=== PATIENT | male | born 1940 | race Caucasian/White ===

== ENCOUNTER → 2016-05-17 | Outpatient (CLI) | payer MEDICARE, MEDICAID ==
[~2016-05-17] MED LIST: ASP325T PO; ASP81CT PO; ASPI-983 PO; CARV3.122 PO; CARV6.252 PO; CHOL2000 PO; COLE1TAB PO; DIGO125T91 PO; DOCU-161 PO; ENAL2.5T PO; FRSM40T PO; GLIM4TAB PO; METF500T4 PO; METH10TA5 PO; METH5TAB5 PO; OMEG1CAP51 PO; OMEP40CA36 PO; PNT40TEC PO; PRAV40TA2 PO; PRV20T PO
--- OUTSIDE RECORDS SUMMARY | 2016-05-17 12:34 | XMS REPORT | Continuity of Care Document ---
Author Author [facility] Organization [facility] Address Unknown Phone Unavailable Care Team Providers Care Assistant Community Director Name Role Phone Dameon Hernandez III PCP [phone] Source Comments Some departments are not documenting in the electronic medical record. If you do not see the information that you expected, contact Release of Information in the Health Information Management department at [phone] for further assistance in locating additional records.[facility] Active Allergies and Adverse Reactions No Known Allergies Current Medications Prescription Sig. Disp. Refills Start End Date Status Date [place]-3 Fatty Take 1 Cap by mouth Active Acids-Vitamin E 1,[address] cap omepraz[address] DR(+) Take 40 mg by mouth Active (PRILOSEC) 40 mg capsule daily. Cholecalciferol (Vitamin Take 1 Cap by mouth Active D3) 2,000 unit cap daily. enalapril (VASOTEC) 2.5 Take 2.5 mg by mouth Active mg tablet daily. methimazole (TAPAZOLE) 5 Take 5 mg by mouth daily. Active mg tablet ticagrelor (BRILINTA) 90 Take 1 Tab by mouth twice 60 Tab 11 05/07/19 Active mg daily. 16 atorvastatin (LIPITOR) 80 Take 1 Tab by mouth 90 Tab 3 05/07/19 Active mg tablet daily. 16 nitroglycerin (NITROSTAT) Place 1 Tab under tongue 25 Tab 3 11/02/19 Active 0.4 mg tablet every 5 minutes as needed 16 for Chest Pain. spironolactone Take 0.5 Tabs by mouth 90 Tab 3 11/02/19 Active (ALDACTONE) 25 mg tablet daily. Take with food. 16 aspirin EC 81 mg tablet Take 1 Tab by mouth 90 Tab 3 11/02/19 Active daily. Take with food. 16 digoxin (LANOXIN) 125 mcg Take 125 mcg by mouth Active tablet daily. carvedilol (COREG) 25 mg Take 1 Tab by mouth twice 180 Tab 3 02/21/20 Active tablet daily. 16 metFORMIN (GLUCOPHAGE) Take 1 Tab by mouth twice 180 Tab 3 03/22/19 Active 500 mg tablet daily with meals. DO NOT 17 RESUME UNTIL 03/22/16 Hydrocodone-Acetaminophen Take 1 Tab by mouth every 20 Each 0 Active (VICODIN) 5-300 mg tablet 4 hours as needed for 17 Pain Earliest Fill Date: 03/21/16 mexiletine (MEXITIL) 150 Take 1 Cap by mouth twice 60 Cap 6 03/21/19 Active mg capsule daily. Indications: 17 VENTRICULAR ARRHYTHMIAS Active Problems Problem Noted Date Hyperthyroidism 11/02/2015 Overview: Treated with Methimazole. NSVT (nonsustained ventricular tachycardia) ([facility]) 11/02/2015 CAD (coronary artery disease) 11/01/2015 Type II diabetes mellitus ([facility]) 05/06/2015 Ischemic cardiomyopathy 05/06/2015 CAD (coronary artery disease), robinson coronary artery Overview: 04/13/15 - cardiac cath: EF 30% with inferior hypokinesis, 100% mRCA, 40-50% mLAD 04/14/15 - 24hour viability study: decreased uptake in the inferior wall with retained viability 05/06/15: QASIM x 4 to RCA - continued ASA lifelong & Brilinta 90 mg BID >/=1 year w/o interruption to prevent stent thrombosis and possible myocardial infarction. 11/01/15: Drug-eluting stent PCI to PLV by Dr. Amaral History of atrial fibrillation Chronic systolic heart failure ([facility]) Overview: 10/01/14 - Echo with Doppler: EF 50%, mildly dilated left atrium, mild MR/TR, estimated PAP 35 mm Hg COPD (chronic obstructive pulmonary disease) ([facility]) Hyperlipidemia Pulmonary hypertension ([facility]) Carotid artery stenosis Overview: 05/25/2011 - left CEA with patch angioplasty Essential hypertension Most Recent Encounters Date Type Specialty Providers Description 05/01/2016 Telephone Cardiology Arin Devine RN Other - EP F/U question 04/03/2016 Hospital Cardiology Boom Amaral MD Encounter 04/03/2016 Ancillary Cardiology Boom Amaral MD At risk for sudden Orders cardiac (Primary Dx) 03/29/2016 Telephone Cardiology Kaylie aSenz RN Provider Discussion About Patient - incision check at PCP Dr. Hernandez 03/23/2016 Telephone Cardiology Mercedes Ling, RAIMUNDO Follow Up 03/21/2016 Hospital Cardiology Sanjay Raphael MD Encounter 03/21/2016 Hospital Cardiology Sanjay Raphael MD Encounter 03/21/2016 Orders Only Cardiology Jessa Scott RN Chronic systolic heart failure (HCC) (Primary Dx) 03/20/2016 Hospital Cardiology Sanjay Raphael MD Ischemic cardiomyopathy - Encounter 03/21/2016 03/20/2016 Anesthesia Cardiology Saurav Agosto CRNA Event 03/20/2016 Documentation Cardiology Hao Padgett Research - WRAP-IT 03/20/2016 Surgery Cardiology Sanjay Raphael MD Insert ICD and Leads : Dual Chamber 03/15/2016 Pre-Admit Cardiology Diana Wallis, DIRECTOR OF CASEWORK-C Orders Only 03/13/2016 Orders Only Cardiology Cathy Phipps RN Ischemic cardiomyopathy 03/13/2016 Telephone Cardiology Mercedes Ling RN 03/07/2016 Hospital Cardiology Boom Amaral MD Encounter 03/07/2016 Ancillary Cardiology Boom Amaral MD At risk for sudden Orders cardiac (Primary Dx) 02/27/2016 Documentation Cardiology Layo Dubon RN Precertification - Medicare 02/22/2016 Pre-Procedure Cardiology Kaylie Saenz RN EP Pre- Procedure Instructions Instructions - ICD implant 03/20 with MPE 02/22/2016 Telephone Cardiology Kaylie Saenz RN Follow-up Phone Call - arrange ICD implant 02/21/2016 Hospital Cardiology Boom Amaral MD Encounter 02/21/2016 Office Visit Cardiology Sanjay Raphael MD Cardiac Eval - 3 month Boom Amaral MD f/u Social History Tobacco Use Types Packs/Day Years Used Date Current Every Day Smoker Cigars Alcohol Use Drinks/Week oz/Week Comments No Last Filed Vital Signs Vital Sign Reading Time Taken Blood Pressure 133/56 03/21/2016 9:53 AM HOSPITALITY SERVICES MANAGER Pulse 60 03/21/2016 9:53 AM HOSPITALITY SERVICES MANAGER Temperature 36.8 C (98.3 F) 03/21/2016 9:53 AM HOSPITALITY SERVICES MANAGER Respiratory Rate - - Height 1.676 m (5' 6") 03/20/2016 8:57 AM HOSPITALITY SERVICES MANAGER Weight 83.19 kg (183 lb 6.4 oz) 03/20/2016 8:57 AM HOSPITALITY SERVICES MANAGER Body Mass Index 29.62 03/20/2016 8:57 AM HOSPITALITY SERVICES MANAGER Oxygen Saturation 96% 03/21/2016 9:53 AM HOSPITALITY SERVICES MANAGER Plan of Care Date Type Specialty Providers Description 06/20/2016 Appointment Cardiology 07/10/2016 Appointment Cardiology 07/10/2016 Appointment Cardiology Boom Amaral MD [address] [place] [address] [phone] (Fax) Health Maintenance Due Date Last Done Comments Physical (Comprehensive) 1947 Exam Pertussis Vaccine 1953 Tetanus Vaccine 1959 Dilated Eye Exam 02/06/1960 Foot Exam 02/06/1960 Hba1c 02/06/1960 Microalbumin 02/06/1960 Colorectal Cancer 02/06/1992 Screening Shingles Vaccine 2002 Prevnar/Pneumovax (#1) 2007 Influenza Vaccine 11/17/2015 Procedures from Last 3 Months Procedure Name Priority Date/Time Associated Diagnosis Comments ECG-SCAN 04/04/2016 Results for this 10:45 AM HOSPITALITY SERVICES MANAGER procedure are in the results section. TELEMETRY STRIPS-SCAN 03/24/2016 Results for this 4:43 PM HOSPITALITY SERVICES MANAGER procedure are in the results section. TELEMETRY STRIPS-SCAN 03/24/2016 Results for this 4:43 PM HOSPITALITY SERVICES MANAGER procedure are in the results section. ECG UNCONFIRMED-SCAN 03/24/2016 Results for this 11:02 AM HOSPITALITY SERVICES MANAGER procedure are in the results section. ECG UNCONFIRMED-SCAN 03/24/2016 Results for this 11:02 AM HOSPITALITY SERVICES MANAGER procedure are in the results section. Results from Last 3 Months ECG-SCAN (04/04/2016 10:45 AM) Narrative Ordered by an unspecified provider. WEARABLE DEFIBRILLATOR INTERROGATION (04/03/2016 8:17 AM)Only the most recent of 2 results within the time period is included. Narrative [04/03/2016 8:18:06 AM - ROBER CHEEMA] LifeVest end of use download completed, no treatment events noted. LV discontinued d/t ICD implant. Pt has had an average daily wear time of 17.94 hrs/day and has had 109 wear time alerts since last report. Forwarded to Dr. Amaral for co-signature. See scanned HRM Data Sheet for wear time report details. TELEMETRY STRIPS-SCAN (03/24/2016 4:43 PM) Narrative Ordered by an unspecified provider. TELEMETRY STRIPS-SCAN (03/24/2016 4:43 PM) Narrative Ordered by an unspecified provider. ECG UNCONFIRMED-SCAN (03/24/2016 11:02 AM) Narrative Ordered by an unspecified provider. ECG UNCONFIRMED-SCAN (03/24/2016 11:02 AM) Narrative Ordered by an unspecified provider. DEVICE EVALUATION - REMOTE ICD (03/21/2016 2:27 PM) Component Value Range Generator Model # EVERA MRI XT DR CHENG [id number] Generator Serial # [id number] Generator Implnat Date 03/20/2016 Generator Food Service Coordinator Medtronic Generator Investigational No Device Type DDD-ICD RV Lead Model # SPRINT QUATTRO SECURE S MRI SURESCAN 6935M-62CM RV Lead Serial # [id number] RV Lead Implant Date 03/20/2016 RV Lead Diaph. 10 Stimulation RV Lead Fixation active fixation RV Lead Location RV apex RV Lead Coil Single RV Lead Food Service Coordinator Medtronic Atrial Lead Model # CAPSUREFIX NOVUS MRI SURESCAN 5076-52CM Atrial Lead Serial # [id number] Atrial Lead Implant Date 03/20/2016 Atrial Lead Diaph. 10 Stimulation Atrial Lead Food Service Coordinator Medtronic Atrial Lead Fixation active fixation Atrial Lead Location right atrial appendage Atrial Lead Pin Connector IS1 Atrial Lead Polarity Bipolar Device Mode AAIR/DDDR Lower Rate Limit 60 Upper Rate Limit 130 Sensor Rate Limit 130 Pace AV Delay 180 Sense AV Delay 150 VT Monitor 150 VT Detect Rate Tx ATP TO SHOCK FVT Detect Rate (bpm) 200 FVT Detect Rate Tx ATP TO SHOCK VF Detect Rate (bpm) 250 VF Detect Rate Tx ATP TO SHOCK Mode Switch (bpm) 150 High A Rate Detect 150 High V Rate Detect 150 Mode Switch Status On VT Detect Rate (bpm) 171 Date of Last Remote Check 03/20/16 Next Remote Check Due 06/18/16 Remote Monitoring? Yes Remote Check? Yes Narrative Initial transmission 03/20/16 top 06/18/16 Initial check post implant. WNL. Presenting strip APVS @ 60 bpm with some ASVS beats. Data initializing. See attached for more information. Pt from [place], [place]. Orders in for next OV with DR Amaral. Routed to [facility] for review. EP DEVICE (03/21/2016 10:05 AM) Component Value Range Generator Model # EVERA MRI XT SKYLAR [id number] Generator Serial # [id number] Generator Implnat Date 03/20/2016 Generator Food Service Coordinator Med[employer]onic Generator Investigational No Generator Location Left Device Type DDD-ICD RV Lead Model # SPRINT QUATTRO SECURE S MRI SKYLAR 6935M-62CM RV Lead Serial # [id number] RV Lead Implant Date 03/20/2016 RV Sense mv 11.4 RV Capture V 0.4 RV Capture ms 0.5 RV Lead Current 0.5 mA RV Lead ohms 630 RV Voltage 3.5 RV Pulse Width 0.4 RV Lead Diaph. 10 Stimulation RV Lead Fixation active fixation RV Lead Location RV apex RV Lead Pin Connector PPM DF4 RV Lead Coil Single RV Lead Food Service Coordinator Medtronic Atrial Lead Model # CAPSUREFIX NOVUS WILMER CHENG 5076-52CM Atrial Lead Serial # [id number] Atrial Lead Implant Date 03/20/2016 A Sense mv 1.0 A Capture V 0.6 A Capture ms 0.5 Atrial Lead Current 1.4 mA A Lead ohms 531 Ao Voltage 3.5 AO Pulse Width 0.4 Atrial Lead Diaph. 10 Stimulation Atrial Lead Food Service Coordinator Med[employer]onic Atrial Lead Fixation active fixation Atrial Lead Location right atrial appendage Atrial Lead Pin Connector IS1 Atrial Lead Polarity Bipolar Device Mode AAIR/DDDR Lower Rate Limit 60 Upper Rate Limit 130 Sensor Rate Limit 130 Pace AV Delay 180 Sense AV Delay 150 VT Monitor 150 VT Detect Rate Tx ATP TO SHOCK FVT Detect Rate (bpm) 200 FVT Detect Rate Tx ATP TO SHOCK VF Detect Rate (bpm) 250 VF Detect Rate Tx ATP TO SHOCK Mode Switch (bpm) 150 High A Rate Detect 150 High V Rate Detect 150 Mode Switch Status On Rate Response On VT Detect Rate (bpm) 171 Narrative Audioprosthologist: Sanjay Raphael MD Fellow: Nichole Cornelius MD Procedure(s): Left sided Dual chamber pacemaker; Cardiac Fluoroscopy; moderate sedation Indications: Ischemic Cardiomyopathy (Primary Prevention). Technique: The patient was in a stable fasting state. He was prepped and draped in the usual strict sterile fashion. After the antibiotic was completely infused, 20 cc Sensorcaine was infiltrated into the area just medial to the left deltopectoral groove. Using a #10 scalpel, an incision was made. The incision was extended to the prepectoral fascia using blunt dissection. Then left axillary vein was accessed twice under fluroscopy. Two sheaths were placed over the guidewire. Then the ventricular lead was advanced into the RV. It was fixated to the right ventricular apical septum. Appropriate sensing and thresholds were obtained.We had to reposition for appropriate placement. During one of the placement, VF/VT was induced, for which he needed external cardioversion with 300 J. It was successful.His RV was highly irritable overall. No complications were noted. No diaphragmatic pacing occurred at 10 V and 1.5 ms. Then the atrial lead was passed down into the RA. The RA lead was fixated to the right atrial appendage. Appropriate sensing and thresholds were obtained. No diaphragmatic pacing occurred at 10 V and 1.5 ms. The sheaths were peeled away.The leads were then sutured to the pectoralis muscle using Ethibond.Lead measurements were then rechecked. A left prepectoral pocket was fashioned. The leads were attached to the generator. The system was placed in the pocket and connected to the leads. The generator and leads system were visualized under fluoroscopy. The generator was sutured to the pocket. Appropriate redundancy/slack in the leads were noted. The pins of the leads were beyond the set screws. Hemostasis was reverified. The pocket was then closed with in three layers. Steri-Strips, a sterile dressing, and an operative site were placed. The patient was transferred to the pre-post room in stable condition. ICD REGISTRY Guideline directed medical therapy for last 3 months or more? If no, document reason:yes History of Cardiac arrest no Coronary angiogram performed post cardiac arrest Not applicable NYHA Functional Class III Family history of Non-Ischemic Cardiomyopathy no Family history of SCD no History of Ventricular Tachycardia yes Type of VT NSVT VT occurred post cardiac surgery w/in 48 hours Not applicable Bradycardia dependent Not applicable Reversible cause Not applicable Hemodynamically unstable during VT Not applicable Indication for PacingNone If yes to the question above, anticipate need for >40% RV pacing? Not applicable Atrial lead for SVT discrimination yes History of SVT no DEVICE EVALUATION - ICD (03/21/2016 9:54 AM) Component Value Range Generator Model # EVERA MRI XT DR CHENG [id number] Generator Serial # [id number] Generator Implnat Date 03/20/2016 Generator Food Service Coordinator Medtronic Generator Investigational No Device Type DDD-ICD Device [place] [employer] Express Transmitter Compatible RV Lead Model # SPRINT QUATTRO SECURE S MRI SURESCAN 6935M-62CM RV Lead Serial # [id number] RV Lead Implant Date 03/20/2016 RV Lead Diaph. 10 Stimulation RV Lead Fixation active fixation RV Lead Location RV apex RV Lead Coil Single RV Lead Food Service Coordinator Med[employer]onic Atrial Lead Model # CAPSUREFIX AJ MRI SURESCAN 5076-52CM Atrial Lead Serial # [id number] Atrial Lead Implant Date 03/20/2016 Atrial Lead Diaph. 10 Stimulation Atrial Lead Food Service Coordinator Medtronic Atrial Lead Fixation active fixation Atrial Lead Location right atrial appendage Atrial Lead Pin Connector IS1 Atrial Lead Polarity Bipolar Device Mode AAIR/DDDR Lower Rate Limit 60 Upper Rate Limit 130 Sensor Rate Limit 130 Pace AV Delay 180 Sense AV Delay 150 VT Monitor 150 VT Detect Rate Tx ATP TO SHOCK FVT Detect Rate (bpm) 200 FVT Detect Rate Tx ATP TO SHOCK VF Detect Rate (bpm) 250 VF Detect Rate Tx ATP TO SHOCK Mode Switch (bpm) 150 High A Rate Detect 150 High V Rate Detect 150 Mode Switch Status On VT Detect Rate (bpm) 171 Device Implanted By MPE EP Device Followed by RENETTA Name Pacemaker Dependant No EP Device Followed By [facility] Narrative Next Day Check [03/21/2016 9:55:25 AM - JESSA SCOTT] Device check by Medtronic Rep in hospital. Please click blue HRM Data Sheet Hyperlink for Report. Remote orders in; routed to E for sign off. POC GLUCOSE (03/21/2016 7:09 AM)Only the most recent of 4 results within the time period is included. Component Value Range Glucose, POC 149 (H) 70-100 MG/DL CHEST 2 VIEWS (03/21/2016 5:32 AM) Impressions Placement of left cardiac conduction device without acute disease in the chest. Finalized by Leny Davila M.D. on 03/21/2016 9:51 AM. Dictated by Leny Davila M.D. on 03/21/2016 9:50 AM. Narrative Two-view chest Clinical indication: Status post device implantation. Comparison: None. Findings: Heart size and pulmonary vasculature are within normal limits. No pleural effusion, focal consolidative process, or pneumothorax is seen. Procedure Note Interface, Radiant Results - SatMar 21, 2016 9:54 AM HOSPITALITY SERVICES MANAGER Two-view chest Clinical indication: Status post device implantation. Comparison: None. Findings: Heart size and pulmonary vasculature are within normal limits. No pleural effusion, focal consolidative process, or pneumothorax is seen. IMPRESSION Placement of left cardiac conduction device without acute disease in the chest. Finalized by Leny Davila M.D. on 03/21/2016 9:51 AM. Dictated by Leny Davila M.D. on 03/21/2016 9:50 AM. BASIC METABOLIC PANEL (03/21/2016 3:26 AM)Only the most recent of 2 results within the time period is included. Component Value Range Sodium 138 137-147 MMOL/L Potassium 3.9 3.5-5.1 MMOL/L Chloride 107 98-110 MMOL/L CO2 24 21-30 MMOL/L Anion Gap 7 3-12 Glucose 115 (H) 70-100 MG/DL Blood Urea Nitrogen 14 7-25 MG/DL Creatinine 0.83 0.4-1.24 MG/DL Calcium 8.2 (L) 8.5-10.6 MG/DL eGFR Non >60Comment: >60 mL/min The eGFR is not validated for use in drug dosing adjustments. Continue to use estimated creatinine clearance per dosing reference text. Please contact the Clinical Pharmacist for questions. eGFR >60Comment: >60 mL/min The eGFR is not validated for use in drug dosing adjustments. Continue to use estimated creatinine clearance per dosing reference text. Please contact the Clinical Pharmacist for questions. Specimen Blood CBC (03/21/2016 3:26 AM)Only the most recent of 3 results within the time period is included. Component Value Range White Blood Cells 10.6 4.5-11.0 K/UL RBC 4.17 (L) 4.4-5.5 M/UL Hemoglobin 12.1 (L) 13.5-16.5 GM/DL Hematocrit 37.3 (L) 40-50 % MCV 89.5 80-100 FL MCH 29.0 26-34 PG MCHC 32.4 32.0-36.0 G/DL RDW 15.7 (H) 11-15 % Platelet Count 177 150-400 K/UL MPV 9.7 7-11 FL Specimen Blood MAGNESIUM (03/13/2016)Only the most recent of 2 results within the time period is included. Component Value Range Magnesium 2.3 Specimen Blood COMPREHENSIVE METABOLIC PANEL (02/21/2016 11:15 AM) Component Value Range Sodium 134 (L) 137-147 MMOL/L Potassium 4.1 3.5-5.1 MMOL/L Chloride 100 98-110 MMOL/L Glucose 268 (H) 70-100 MG/DL Blood Urea Nitrogen 16 7-25 MG/DL Creatinine 1.01 0.4-1.24 MG/DL Calcium 9.7 8.5-10.6 MG/DL Total Protein 7.1 6.0-8.0 G/DL Total Bilirubin 0.4 0.3-1.2 MG/DL Albumin 4.1 3.5-5.0 G/DL Alk Phosphatase 54 25-110 U/L AST (SGOT) 15 7-40 U/L CO2 26 21-30 MMOL/L ALT (SGPT) 25 7-56 U/L Anion Gap 8 3-12 eGFR Non >60Comment: >60 mL/min The eGFR is not validated for use in drug dosing adjustments. Continue to use estimated creatinine clearance per dosing reference text. Please contact the Clinical Pharmacist for questions. eGFR >60Comment: >60 mL/min The eGFR is not validated for use in drug dosing adjustments. Continue to use estimated creatinine clearance per dosing reference text. Please contact the Clinical Pharmacist for questions. TSH WITH FREE T4 REFLEX (02/21/2016 11:15 AM) Component Value Range TSH 1.005 0.35-5.00 MCU/ML Specimen Blood
--- NOTE | 2016-05-18 06:51 | ECHOCARDIOGRAPHY REPORT ---
PROCEDURE PHYSICIAN: TAYLOR BROWN DATE OF PROCEDURE: 05/17/2016 TWO DIMENSIONAL ECHOCARDIOGRAM REPORT PRIMARY PHYSICIAN: OTHER PHYSICIAN: REFERRING PHYSICIAN: Dr. Celio Hernandez ORDERING PHYSICIAN: INDICATION FOR THE PROCEDURE: 1. Congestive heart failure. 2. Coronary artery disease. MEASUREMENTS DERIVED VALUES LV DIAMETER (LAX) NORMALS NORMALS Diastolic 5.8 (3.6-5.2) Eject. Fract. 40% (60%+/-6%) Systolic (2.3-3.9) Diastolic Vol. % Shortening (0.22-0.42) Systolic Vol. Aortic Root IVS THICKNESS Diastolic 1.1 (0.6-1.1) LVPW THICKNESS Diastolic 1.1 (0.6-1.1) LA DIAMETER Systolic 4.6 (2.1-3.7) FINDINGS: 1. Technical quality is good. 2. The left ventricle is prominent with diffuse left ventricular hypokinesia. Systolic function is reduced. Estimated ejection fraction 40%. 3. The left atrium is dilated. No clot or thrombus were seen within the left atrium. 4. The right atrium and right ventricle are prominent. No clot or thrombus were seen. 5. Mitral valve is normal in morphology with mild to moderate mitral regurgitation noted by color Doppler flow. No mitral valve prolapse. No mitral valve stenosis. 6. Aortic valve is trileaflet with normal opening and closing pattern. No significant aortic valve stenosis or regurgitation was seen. 7. Tricuspid valve is normal in morphology with mild tricuspid regurgitation noted by color Doppler flow. Doppler across tricuspid valve estimated pulmonary artery pressure of 21+ right atrial pressure. 8. Pulmonic valve is functioning normally. 9. No pericardial effusion. CONCLUSION: 1. Prominent left ventricle with diffuse left ventricular hypokinesia. Systolic function is reduced. Estimated ejection fraction 40%. 2. Left atrial dilatation. 3. Mild to moderate mitral regurgitation. Mild tricuspid regurgitation. 4. Estimated pulmonary artery pressure of 30 mmHg. Job ID: [id number] Dictated Date: 05/17/2016 16:50:55 Customer Loyalty Representative Date: 05/18/2016 06:48:02 / saji
== END ==
LOC: CARD 12:30
PROVIDERS: ATTEND Internal Medicine Cardiovascular Disease
DX: I25.10 Atherosclerotic heart disease of native coronary artery without angina pectoris (principal); I50.22 Chronic systolic (congestive) heart failure; J44.9 Chronic obstructive pulmonary disease, unspecified; I65.23 Occlusion and stenosis of bilateral carotid arteries; C43.9 Malignant melanoma of skin, unspecified; I48.0 Paroxysmal atrial fibrillation
CPT/HCPCS: 93306

== ENCOUNTER → 2017-05-22 | Outpatient (CLI) | payer MEDICARE, MEDICAID ==
--- NOTE | 2017-05-22 12:59 | Diagnostic Imaging Report ---
INDICATION: Injury to the right ankle. TIME OF EXAM: 1:03 p.m. FINDINGS: Three views of the right ankle were obtained. The alignment is normal. There is an obliquely oriented fracture through the distal fibula. No significant displacement or angulation is seen. The ankle mortise is maintained. The talar dome is smooth. Distal tibia appears intact. IMPRESSION: Obliquely oriented distal fibular fracture. Dictated by: Dictated on workstation # [id number]
== END ==
LOC: RAD 12:18
PROVIDERS: ATTEND Internal Medicine
DX: S82.431A Displaced oblique fracture of shaft of right fibula, initial encounter for closed fracture (principal); S93.431A Sprain of tibiofibular ligament of right ankle, initial encounter
CPT/HCPCS: 73610

== ENCOUNTER → 2017-06-17 | Outpatient (CLI) | payer MEDICARE, MEDICAID ==
[~2017-06-17] MED LIST changes: +RT-ALBUTEROL SULF 2.5 MG/3 ML PRE-MIX VIAL INH ONE
== END ==
LOC: RT 08:36
PROVIDERS: ATTEND Internal Medicine
DX: R06.00 Dyspnea, unspecified (principal)
CPT/HCPCS: 94060; 94726; 94729

== ENCOUNTER 2018-03-27 10:29 | Inpatient (IN) | payer MEDICARE, MEDICAID ==
[~2018-03-27] VITALS: Ht 170.2 cm; Wt 84.1 kg
[~2018-03-27 10:29] MED LIST changes: +METF-397 PO; -METF500T4 PO; -RT-ALBUTEROL SULF 2.5 MG/3 ML PRE-MIX VIAL INH ONE
--- OUTSIDE RECORDS SUMMARY | 2018-03-27 10:34 | XMS REPORT | Encounter Summary ---
Author Author [facility] Organization [facility] Address Unknown Phone Unavailable Care Team Providers Care Tunneling Machine Operator Name Role Phone BlakeMilena Unavailable Unavailable Celio Hernandez MD PCP Leyda Grace RN Unavailable Unavailable Sonja Shah RN Unavailable Unavailable Reason for Visit * Reason Comments Lab Results W/medication increase Lasix to 40 mg daily - repeat BMP in one week Changes Encounter Details Care Team Description Date Type Department Shantel Troy RN Lab Results W/medication Changes (increase Lasix to 40 mg daily - repeat BMP in one week) 12/27/2017 Telephone Cardiovascular Medicine [facility] [place] [address] Social History Date Tobacco Use Types Packs/Day Years Used Current Every Day Smoker Cigars Smokeless Tobacco: Never Used Alcohol Use Drinks/Week oz/Week Comments No Sex Assigned at Date Recorded Not on file Industry Job Start Date Occupation Not on file Not on file Not on file Travel End Travel History Travel Start No recent travel history available. as of this encounter Functional Status Date of Assessment Functional Status Response 11/01/2015 Does the patient have a hearing impairment: Yes 11/01/2015 Does the patient have a visual impairment: Yes 11/01/2015 Does the patient have impaired ambulation: No 11/01/2015 Does the patient have an activity of daily living No (ADL) impairment: 11/01/2015 Does the patient have an instrumental activity of No daily living (IADL) impairment: Date of Assessment Cognitive Status Response 11/01/2015 Does the patient have a cognitive impairment: No as of this encounter Miscellaneous Notes * Telephone Encounter - Shantel Troy RN - 12/27/2017 10:00 AM CDT Reviewed lab results and recommendations with patient. He verbalizes an understanding. Updated Lasix prescription sent to patient's local pharmacy. Patient will have the one week BMP through Dr. Hernandez's office. Order mailed to his home. * Telephone Encounter - Shantel Troy RN - 12/27/2017 9:56 AM CDT ----- Message from Boom Amaral MD sent at 12/25/2017 8:34 AM CDT ----- Regarding: RE: BMP on chart - s/p Lasix initiation Increase Lasix to 40 and repeat BMP in a week ----- Message ----- From: Shantel Troy RN Sent: 12/24/2017 10:56 AM To: Boom Amaral MD, Shantel Troy RN Subject: BMP on chart - s/p Lasix initiation Lasix 20 mg daily initiated on 12/05. Pt also taking Spironolactone 12.5 mg. Repeat BMP on chart. Creat looks stable at 1.1. K+ up to 5.2. Making sure okay to continue current therapy. ----- Message ----- From: Shantel Troy RN Sent: 12/19/2017 To: Shantel Troy RN Subject: BMP due 12/18 - meds changed - received? Sent BMP lab order with patient on 12/05. MAW changed diuretics. Patient to have BMP drawn at Dr. Hernandez's office on 12/18. in this encounter Plan of Treatment Not on fileas of this encounter Results * BASIC METABOLIC PANEL (01/08/2018) Sodium 136 [facility] Potassium 4.4 [facility] Chloride 100 [facility] CO2 28.0 [facility] Blood Urea Nitrogen 19 [facility] Creatinine 1.1 [facility] Glucose 128 (H) [facility] Calcium 9.4 [facility] eGFR Non 91 [facility] eGFR [facility] Anion Gap 12 [facility] Specimen Blood - Blood Performing Organization Address City/State/Zipcode Phone Number [facility] [address] [place] [address] 10A in this encounter Visit Diagnoses Diagnosis Drug therapy changed - Primary Encounter for long-term (current) use of other medications Chronic systolic heart failure (HCC) Chronic systolic heart failure in this encounter
--- OUTSIDE RECORDS SUMMARY | 2018-03-27 10:34 | XMS REPORT | Encounter Summary ---
Author Author [facility] Organization [facility] Address Unknown Phone Unavailable Care Team Providers Care Outer Diameter Grinder Name Role Phone BlakeMilena Unavailable Unavailable Celio Hernandez MD PCP Leyda Grace RN Unavailable Unavailable Sonja Shah RN Unavailable Unavailable Encounter Details Care Team Description Date Type Department Sanjay Raphael MD [address] [place] [address] Arrived 03/26/2018 [facility] Cardiovascular Medicine Encounter Remote Device Check [phone] Social History Date Tobacco Use Types Packs/Day [...] cognitive impairment: No as of this encounter Plan of Treatment Order Schedule Name Priority Associated Diagnoses 1 Occurrences starting 03/26/2018 DEVICE EVALUATION - REMOTE ICD Routine Chronic systolic heart failure (HCC) as of this encounter Visit Diagnoses Diagnosis Chronic systolic heart failure (HCC) Chronic systolic heart failure in this encounter
--- OUTSIDE RECORDS SUMMARY | 2018-03-27 10:34 | XMS REPORT | Encounter Summary ---
Author Author [facility] Organization [facility] Address Unknown Phone Unavailable Care Team Providers Care Crepe Maker Name Role Phone BlakeMilena Unavailable Unavailable Celio Hernandez MD PCP Leyda Grace RN Unavailable Unavailable Sonja Shah RN Unavailable Unavailable Reason for Visit * Reason Comments Labs Only BMP Encounter Details Care Team Description Date Type Department Shantel Troy RN Labs Only (BMP) 01/08/2018 Documentation Cardiovascular Medicine [facility] [place] [address] Social History Date Tobacco Use Types Packs/Day [...] as of this encounter Plan of Treatment Not on fileas of this encounter Procedures Comments Procedure Name Priority Date/Time Associated Diagnosis BASIC METABOLIC PANEL Routine 01/08/2018 Drug therapy changed Chronic systolic heart failure (HCC) in this encounter Results * BASIC METABOLIC PANEL (01/08/2018) Sodium 136 [facility] Potassium 4.4 [facility] Chloride 100 [facility] CO2 28.0 [facility] [place] [facility] Blood Urea Nitrogen 19 [facility] Creatinine 1.1 [facility] [place] [facility] Glucose 128 (H) [facility] [place] [facility] Calcium 9.4 [facility] e[facility] Non 91 [facility] [place] Anion Gap 12 [facility] [place] [facility] Specimen Blood - Blood Performing Organization Address City/State/Zipcode Phone Number [facility] [place] [place] [facility] [place] [address] [place] [address] 10A in this encounter Visit Diagnoses Diagnosis Drug therapy changed Encounter for long-term (current) use of other medications Chronic systolic heart failure (HCC) Chronic systolic heart failure in this encounter
--- OUTSIDE RECORDS SUMMARY | 2018-03-27 10:34 | XMS REPORT | Encounter Summary ---
Author Author [facility] Organization [facility] Address Unknown Phone Unavailable Care Team Providers Care Web Solutions Architect Name Role Phone BlakeMilena Unavailable Unavailable Celio Hernandez MD PCP Leyda Grace RN Unavailable Unavailable Sonja Shah RN Unavailable Unavailable Encounter Details Care Team Description Date Type Department Sanjay Raphael MD [address] [place] [address] 12/25/2017 [facility] Cardiovascular Medicine Encounter Remote Device Check [phone] Social History Date Tobacco Use Types Packs/Day [...] cognitive impairment: No as of this encounter Medications at Time of Discharge Start Date End Date Medication Sig Dispensed Refills 12/05/2017 amiodarone (CORDARONE) Take one-half 90 tablet 3 200 mg tablet tablet by mouth daily. Take with food. 11/02/2015 aspirin EC 81 mg Take 1 Tab by 90 Tab 3 tabletIndications: mouth daily. Coronary artery disease Take with involving ewiiaapaayp coronary food. artery of ewiiaapaayp heart, angina presence unspecified, Ischemic cardiomyopathy, Chronic obstructive pulmonary disease, unspecified COPD type (HCC) 11/19/2017 carvedilol (COREG) 25 mg Take one 180 tablet 1 tablet tablet by mouth twice daily. Cholecalciferol (Vitamin Take 1 Cap by 0 D3) 2,000 unit cap mouth daily. enalapril (VASOTEC) 2.5 Take 2.5 mg 0 mg tablet by mouth daily. 06/27/2017 metFORMIN (GLUCOPHAGE) Take 1 tablet 180 tablet 3 500 mg tabletIndications: by mouth Chronic systolic heart twice daily failure (HCC), Chronic with meals. obstructive pulmonary DO NOT RESUME disease, unspecified COPD UNTIL 06/29/17 type (HCC), Hyperlipidemia, unspecified hyperlipidemia type, Pulmonary hypertension ([facility]), Ischemic cardiomyopathy, Coronary artery disease involving ewiiaapaayp coronary artery of ewiiaapaayp heart, angina presence unspecified, History of atrial fibrillation, NSVT (nonsustained ventricular tachycardia) ([facility]), VF (ventricular fibrillation) ([facility]), Essential hypertension methimazole (TAPAZOLE) 5 Take 5 mg by 0 mg tablet mouth daily. 11/02/2015 nitroglycerin (NITROSTAT) Place 1 Tab 25 Tab 3 0.4 mg tabletIndications: under tongue Coronary artery disease every 5 involving ewiiaapaayp coronary minutes as artery of ewiiaapaayp heart, needed for angina presence Chest Pain. unspecified, Chronic systolic heart failure (HCC), Ischemic cardiomyopathy, Chronic obstructive pulmonary disease, unspecified COPD type ([facility]), Hyperlipidemia, unspecified hyperlipidemia type, Pulmonary hypertension ([facility]) [place]-3 Fatty Take 1 Cap by 0 Acids-Vitamin E 1,000 mg mouth daily. cap omeprazole DR(+) Take 40 mg by 0 (PRILOSEC) 40 mg capsule mouth daily. 06/05/2017 rosuvastatin (CRESTOR) 20 Take 1 tablet 90 tablet 3 mg tablet by mouth daily. 11/19/2017 spironolactone Take one-half 45 tablet 3 (ALDACTONE) 25 mg tablet by tabletIndications: mouth daily. Coronary artery disease Take with involving ewiiaapaayp coronary food. artery of ewiiaapaayp heart, angina presence unspecified, Chronic systolic heart failure (HCC), Ischemic cardiomyopathy, Chronic obstructive pulmonary disease, unspecified COPD type (HCC), Hyperlipidemia, unspecified hyperlipidemia type, Pulmonary hypertension ([facility]) 12/05/2017 12/27/2017 furosemide (LASIX) 20 mg Take one 90 tablet 3 tablet tablet by mouth every morning. as of this encounter Plan of Treatment Not on fileas of this encounter Procedures Comments Procedure Name Priority Date/Time Associated Diagnosis DEVICE EVALUATION - Routine 12/31/2017 Chronic systolic heart REMOTE ICD 11:06 AM CDT failure (HCC) in this encounter Results * DEVICE EVALUATION - REMOTE ICD (12/31/2017 11:06 AM CDT) Generator Model # EVERA MRI XT DR CHENG OTHER OUTSIDE LAB [id number] Generator Serial # [id number] OTHER OUTSIDE LAB Generator Implnat Date 03/20/2016 OTHER OUTSIDE LAB MONSE/EOL Indicator Per developer programmer analyst OTHER OUTSIDE LAB Generator Remote Sensing Technician Medtronic OTHER OUTSIDE LAB Generator Investigational No OTHER OUTSIDE LAB Wireless Generator Yes OTHER OUTSIDE LAB Device Type DDD-ICD OTHER OUTSIDE LAB Device [place] [employer] OTHER OUTSIDE LAB Transmitter Compatible RV Lead Model # SPRINT QUATTRO SECURE S MRI OTHER OUTSIDE LAB SURESCAN 6935M-62CM RV Lead Serial # [id number] OTHER OUTSIDE LAB RV Lead Implant Date 03/20/2016 OTHER OUTSIDE LAB RV Lead Diaph. 10 OTHER OUTSIDE LAB Stimulation RV Lead Investigational No OTHER OUTSIDE LAB RV Lead Fixation active fixation OTHER OUTSIDE LAB RV Lead Location RV apex OTHER OUTSIDE LAB RV Lead Coil Single OTHER OUTSIDE LAB RV Lead Remote Sensing Technician Medtronic OTHER OUTSIDE LAB Atrial Lead Model # CAPSUREFIX NOVUS MRI SURESCAN OTHER OUTSIDE LAB 5076-52CM Atrial Lead Serial # [id number] OTHER OUTSIDE LAB Atrial Lead Implant Date 03/20/2016 OTHER OUTSIDE LAB Atrial Lead Diaph. 10 OTHER OUTSIDE LAB Stimulation Atrial Lead Remote Sensing Technician Medtronic OTHER OUTSIDE LAB Atrial Lead No OTHER OUTSIDE LAB Investigational Atrial Lead Fixation active fixation OTHER OUTSIDE LAB Atrial Lead Location right atrial appendage OTHER OUTSIDE LAB Atrial Lead Pin Connector IS1 OTHER OUTSIDE LAB Atrial Lead Polarity Bipolar OTHER OUTSIDE LAB Device Mode AAIR/DDDR OTHER OUTSIDE LAB Lower Rate Limit 60 OTHER OUTSIDE LAB Upper Rate Limit 130 OTHER OUTSIDE LAB Sensor Rate Limit 130 OTHER OUTSIDE LAB Pace AV Delay 180 OTHER OUTSIDE LAB Sense AV Delay 150 OTHER OUTSIDE LAB VT Detect Rate Tx ATP TO SHOCK OTHER OUTSIDE LAB FVT Detect Rate (bpm) 240 OTHER OUTSIDE LAB FVT Detect Rate Tx ATP TO SHOCK OTHER OUTSIDE LAB VF Detect Rate (bpm) 300 OTHER OUTSIDE LAB VF Detect Rate Tx ATP TO SHOCK OTHER OUTSIDE LAB Mode Switch (bpm) 150 OTHER OUTSIDE LAB High A Rate Detect 150 OTHER OUTSIDE LAB High V Rate Detect 150 OTHER OUTSIDE LAB Mode Switch Status On OTHER OUTSIDE LAB VT Detect Rate (bpm) 350 OTHER OUTSIDE LAB Date of Last Remote Check 09/25/17 OTHER OUTSIDE LAB Next Remote Check Due 12/26/17 OTHER OUTSIDE LAB AT/AF Daily Arverne Hours 6 OTHER OUTSIDE LAB Average Vent Rate during 100 OTHER OUTSIDE LAB AT/AF #BPM Average Vent Rate During 6 OTHER OUTSIDE LAB AT/AF #Hours Remote Monitoring? Yes OTHER OUTSIDE LAB Daily Arverne Threshld On OTHER OUTSIDE LAB Alert? Average Venticular Rate On OTHER OUTSIDE LAB AT/AF On/Off VF Detection/Therapy Off On OTHER OUTSIDE LAB Device Implanted By Sanjay Raphael M.D. OTHER OUTSIDE LAB EP Device Followed by [facility] OTHER OUTSIDE LAB Name Pacemaker Dependant No OTHER OUTSIDE LAB EP Device Followed By [facility] OTHER OUTSIDE LAB Date of Last Programming 09/06/17 OTHER OUTSIDE LAB HF Patient Yes OTHER OUTSIDE LAB Date of Last ICM 12/05/17 OTHER OUTSIDE LAB Evaluation Date of Last 12/05/17 OTHER OUTSIDE LAB Interrogation Known Diagnosed VT VT Yes OTHER OUTSIDE LAB Narrative Performed At OTHER OUTSIDE LAB Current Monitoring Period: 12/25/17 through 03/26/18 [12/31/2017 11:23:43 AM - MARA TURK] Scheduled Carelink transmission received.Device function appears normal. Events noted since 12/05/17: Atrial:None. Ventricular:None. OptiVol and thoracic impedance trends currently do not suggest fluid overload. Please see scanned data sheets for further review as needed.Pt is scheduled to follow up sometime in May 2018 with RENETTA at the office. Performing Organization Address City/State/Zipcode Phone Number OTHER OUTSIDE LAB in this encounter Visit Diagnoses Diagnosis Chronic systolic heart failure (HCC) Chronic systolic heart failure in this encounter
--- OUTSIDE RECORDS SUMMARY | 2018-03-27 10:34 | XMS REPORT | Clinical Summary ---
Author Author [facility] Organization [facility] Address Unknown Phone Unavailable Care Team Providers Care Creel Clerk Name Role Phone BlakeMilena Unavailable Unavailable Celio Hernandez MD PCP Leyda Grace RN Unavailable Unavailable Sonja Shah RN Unavailable Unavailable Source Comments Some departments are not documenting in the electronic medical record. If you do not see the information that you expected, contact Release of Information in the Health Information Management department at [phone] for further assistance in locating additional records.[facility] Allergies No Known Allergies Medications End Date Status Medication Sig Dispensed Refills Start Date Active [place]-3 Fatty Take 1 Cap by 0 Acids-Vitamin E 1,000 mg mouth daily. cap Active omeprazole DR(+) Take 40 mg by 0 (PRILOSEC) 40 mg capsule mouth daily. Active Cholecalciferol (Vitamin Take 1 Cap by 0 D3) 2,000 unit cap mouth daily. Active enalapril (VASOTEC) 2.5 Take 2.5 mg 0 mg tablet by mouth daily. Active methimazole (TAPAZOLE) 5 Take 5 mg by 0 mg tablet mouth daily. Active nitroglycerin (NITROSTAT) Place 1 Tab 25 Tab 3 0.4 mg tabletIndications: under tongue 6 Coronary artery disease every 5 involving hoopa coronary minutes as artery of hoopa heart, needed for angina presence Chest Pain. unspecified, Chronic systolic heart failure (HCC), Ischemic cardiomyopathy, Chronic obstructive pulmonary disease, unspecified COPD type (HCC), Hyperlipidemia, unspecified hyperlipidemia type, Pulmonary hypertension (HCC) Active aspirin EC 81 mg Take 1 Tab by 90 Tab 3 tabletIndications: mouth daily. 6 Coronary artery disease Take with involving hoopa coronary food. artery of hoopa heart, angina presence unspecified, Ischemic cardiomyopathy, Chronic obstructive pulmonary disease, unspecified COPD type (HCC) Active rosuvastatin (CRESTOR) 20 Take 1 tablet 90 tablet 3 mg tablet by mouth 8 daily. Active metFORMIN (GLUCOPHAGE) Take 1 tablet 180 tablet 3 500 mg tabletIndications: by mouth 8 Chronic systolic heart twice daily failure (HCC), Chronic with meals. obstructive pulmonary DO NOT RESUME disease, unspecified COPD UNTIL 06/29/17 type (HCC), Hyperlipidemia, unspecified hyperlipidemia type, Pulmonary hypertension (HCC), Ischemic cardiomyopathy, Coronary artery disease involving hoopa coronary artery of hoopa heart, angina presence unspecified, History of atrial fibrillation, NSVT (nonsustained ventricular tachycardia) (HCC), VF (ventricular fibrillation) (HCC), Essential hypertension Active carvedilol (COREG) 25 mg Take one 180 tablet 1 tablet tablet by 8 mouth twice daily. Active spironolactone Take one-half 45 tablet 3 (ALDACTONE) 25 mg tablet by 8 tabletIndications: mouth daily. Coronary artery disease Take with involving hoopa coronary food. artery of hoopa heart, angina presence unspecified, Chronic systolic heart failure (HCC), Ischemic cardiomyopathy, Chronic obstructive pulmonary disease, unspecified COPD type (HCC), Hyperlipidemia, unspecified hyperlipidemia type, Pulmonary hypertension (HCC) Active amiodarone (CORDARONE) Take one-half 90 tablet 3 200 mg tablet tablet by 8 mouth daily. Take with food. Active furosemide (LASIX) 40 mg Take one 90 tablet 3 tablet tablet by 8 mouth every morning. Active Problems Problem Noted Date Pre-procedure lab exam 06/21/2017 VF (ventricular fibrillation) 05/31/2017 ICD (implantable cardioverter-defibrillator), dual, in situ 01/22/2017 Hyperthyroidism 11/02/2015 Overview: Treated with Methimazole. NSVT (nonsustained ventricular tachycardia) 11/02/2015 Type II diabetes mellitus 05/06/2015 Ischemic cardiomyopathy 05/06/2015 CAD (coronary artery disease), hoopa coronary artery Overview: 04/13/15 - cardiac cath: [...] of atrial fibrillation Chronic systolic heart failure Overview: 10/01/14 - Echo with Doppler: EF 50%, mildly dilated left atrium, mild MR/TR, estimated PAP 35 mm Hg COPD (chronic obstructive pulmonary disease) Hyperlipidemia Pulmonary hypertension Carotid artery stenosis Overview: 05/25/2011 - left CEA with patch angioplasty Essential hypertension Encounters Care Team Description Date Type Specialty Sanjay Raphael MD Arrived 03/26/2018 Hospital Cardiology Encounter Shantel Troy RN Labs Only (BMP) 01/08/2018 Documentation Cardiology Shantel Troy RN Lab Results W/medication Changes (increase Lasix to 40 mg daily - repeat BMP in one week) 12/27/2017 Telephone Cardiology Sanjay Raphael MD 12/25/2017 Hospital Cardiology Encounter from Last 3 Months Family History Medical History Relation Name Comments Diabetes Brother Relation Name Status Comments Brother Social History Date Tobacco Use Types Packs/Day Years Used Current Every Day Smoker Cigars Smokeless Tobacco: Never Used Alcohol Use Drinks/Week oz/Week Comments No Sex Assigned at Date Recorded Not on file Industry Job Start Date Occupation Not on file Not on file Not on file Travel End Travel History Travel Start No recent travel history available. Last Filed Vital Signs Time Taken Vital Sign Reading 12/05/2017 11:24 AM CDT Blood Pressure 134/72 12/05/2017 11:24 AM CDT Pulse 98 06/27/2017 3:46 PM CDT Temperature 37 C (98.6 F) - Respiratory Rate - 09/05/2017 12:25 PM CDT Oxygen Saturation 97% - Inhaled Oxygen - Concentration 12/05/2017 11:24 AM CDT Weight 94.8 kg (209 lb) 12/05/2017 11:24 AM CDT Height 172.7 cm (5' 8") 12/05/2017 11:24 AM CDT Body Mass Index 31.78 Plan of Treatment Health Maintenance Due Date Last Done Comments PHYSICAL (COMPREHENSIVE) 1947 EXAM DILATED EYE EXAM 02/06/1960 DTAP/TDAP VACCINES (1 - 02/06/1960 Tdap) FOOT EXAM 02/06/1960 HBA1C 02/06/1960 SHINGLES RECOMBINANT 02/06/1992 VACCINE (1 of 2) PNEUMONIA (PCV13/PPSV23) 2007 VACCINES (1 of 2 - PCV13) INFLUENZA VACCINE 10/16/2017 Implants Device Identifier Shelf Expiration Date Model / Serial / Lot Implanted Type Area Manufactur er Icd ICD Procedures Comments Procedure Name Priority Date/Time Associated Diagnosis BASIC METABOLIC PANEL Routine 01/08/2018 Drug therapy changed Chronic systolic heart failure (HCC) DEVICE EVALUATION - Routine 12/31/2017 Chronic systolic heart REMOTE ICD 11:06 AM CDT failure (HCC) from Last 3 Months Results * BASIC METABOLIC PANEL (01/08/2018) Sodium [...] Organization Address City/State/Zipcode Phone Number [facility] [address] [place] [address] 10A * DEVICE EVALUATION - REMOTE ICD (12/31/2017 11:06 AM CDT) Generator Model # EVERA MRI XT DR CHENG OTHER OUTSIDE LAB [id number] Generator Serial # [id number] OTHER OUTSIDE LAB Generator Implnat Date 03/20/2016 OTHER OUTSIDE LAB MONSE/EOL Indicator Per .net programmer OTHER OUTSIDE LAB Generator Whiskey Regauger Medtronic OTHER OUTSIDE LAB Generator Investigational No OTHER OUTSIDE LAB Wireless Generator Yes OTHER OUTSIDE LAB Device Type DDD-ICD OTHER OUTSIDE LAB Device [place] [employer] OTHER OUTSIDE LAB Transmitter Compatible RV Lead Model # SPRINT QUATTRO SECURE S MRI OTHER OUTSIDE LAB [place] 6935M-62CM RV Lead Serial # [id number] OTHER OUTSIDE LAB RV Lead Implant Date 03/20/2016 OTHER OUTSIDE LAB RV Lead Diaph. 10 OTHER OUTSIDE LAB Stimulation RV Lead Investigational No OTHER OUTSIDE LAB RV Lead Fixation active fixation OTHER OUTSIDE LAB RV Lead Location RV apex OTHER OUTSIDE LAB RV Lead Coil Single OTHER OUTSIDE LAB RV Lead Whiskey Regauger Medtronic OTHER OUTSIDE LAB Atrial Lead Model # CAPSUREFIX NOVUS MRI SURESCAN OTHER OUTSIDE LAB 5076-52CM Atrial Lead Serial # [id number] OTHER OUTSIDE LAB Atrial Lead Implant Date 03/20/2016 OTHER OUTSIDE LAB Atrial Lead Diaph. 10 OTHER OUTSIDE LAB Stimulation Atrial Lead Whiskey Regauger Medtronic OTHER OUTSIDE LAB Atrial Lead No [...] Due 12/26/17 OTHER OUTSIDE LAB AT/AF Daily [place] Hours 6 OTHER OUTSIDE LAB Average Vent Rate during 100 OTHER OUTSIDE LAB AT/AF #BPM Average Vent Rate During 6 OTHER OUTSIDE LAB AT/AF #Hours Remote Monitoring? Yes OTHER OUTSIDE LAB Daily [place] Threshld On OTHER OUTSIDE LAB Alert? Average [...] Address City/State/Zipcode Phone Number OTHER OUTSIDE LAB from Last 3 Months Insurance Payer Benefit Subscriber ID Type Phone Address Plan / Group MEDICARE MEDICARE xxxxxxxxxx Medicare PART A AND B Advance Directives Patient has advance care planning documents, and code status on file. For more information, please contact: [facility] [address] [place] [address] Date Inactivated Comments Code Status Date Activated 06/27/2017 8:04 PM Full Code 06/27/2017 10:16 AM Provider has discussed Code Status No, discussion not w/Patient or Family? necessary based on Dx 03/21/2016 12:06 PM Full Code 03/20/2016 5:51 PM Provider has discussed Code Status No, more discussion w/Patient or Family? needed 11/02/2015 1:14 PM Full Code 11/01/2015 5:56 PM Provider has discussed Code Status No, more discussion w/Patient or Family? needed 05/09/2015 8:17 AM Full Code 05/06/2015 5:05 PM Provider has discussed Code Status No, more discussion w/Patient or Family? needed
--- OUTSIDE RECORDS SUMMARY | 2018-03-27 10:35 | XMS REPORT | Continuity of Care Document ---
Author Author [facility] Organization [facility] Address Unknown Phone Unavailable Allergies Active Description Code Type Severity Reaction Onset Reported/Identified Relationship to Patient Clinical Status Yes No Known Drug Allergies [id number] Drug Allergy Unknown N/A 03/27/2011 Medications There is no data. Problems Date Dx Coded Attending Type Code Diagnosis Diagnosed By 02/15/1244 RENEE SAENZ, THOMAS Payne Ot Z48.812 ENCNTR FOR SURGICAL AFTCR FOLLOWING SURG 02/15/1244 THOMAS DURAN MD Ot Z95.5 PRESENCE OF CORONARY ANGIOPLASTY IMPLANT 04/05/2014 MARVIN SCHAEFFER Ot 397.0 04/05/2014 SOL LOMAS, MARVIN K Ot 414.00 04/05/2014 SOL LOMAS, MARVIN K Ot 416.8 04/05/2014 SOL LOMAS, MARVIN K Ot 424.0 04/05/2014 SOL LOMAS, MARVIN K Ot 428.0 08/27/2014 SOL LOMAS, MARVIN K Ot 397.0 08/27/2014 SOL LOMAS, MARVIN K Ot 414.00 08/27/2014 SOL LOMAS, MARVIN K Ot 416.8 08/27/2014 SOL LOMAS, MARVIN K Ot 424.0 08/27/2014 SOL LOMAS, MARVIN K Ot 428.0 09/02/2014 DARIELA HELLER GATE WATCHMAN Ot 288.60 09/02/2014 DARIELA HELLER Ot 790.99 09/02/2014 MARVIN SCHAEFFER K Ot 397.0 09/02/2014 CHINEDU SCHAEFFERTH K Ot 414.00 09/02/2014 SOL LOMAS, MARVIN K Ot 416.8 09/02/2014 SOL LOMAS, MARVIN K Ot 424.0 09/02/2014 NUNEZ-TEMI PA, MARVIN K Ot 428.0 09/02/2014 ARRONDARIELA GATE WATCHMAN Ot 288.60 09/02/2014 ARRONDARIELA GATE WATCHMAN Ot 790.99 09/20/2014 HELLERDARIELA GATE WATCHMAN Ot 288.60 09/20/2014 HELLERDARIELA GATE WATCHMAN Ot 790.99 09/30/2014 ARRONDARIELA GATE WATCHMAN Ot 288.60 09/30/2014 ARRONDARIELA GATE WATCHMAN Ot 790.99 10/01/2014 NUNEZ-TEMI PA, MARVIN K Ot 397.0 10/01/2014 NUNEZ-TEMI PA, MARVIN K Ot 414.00 10/01/2014 NUNEZ-TEMI PA, MARVIN K Ot 416.8 10/01/2014 NUNEZ-TEMI PA, MARVIN K Ot 424.0 10/01/2014 NUNEZ-TEMI PA, MARVIN K Ot 428.0 10/01/2014 ARRONDARIELA GATE WATCHMAN Ot 288.60 10/01/2014 ARRONDARIELA GATE WATCHMAN Ot 790.99 10/25/2014 NUNEZ-TEMI PA, MARVIN K Ot 414.9 10/25/2014 NUNEZ-TEMI PA, MARVIN K Ot 427.31 10/25/2014 NUNEZ-TEMI PA, MARVIN K Ot 428.0 10/25/2014 NUNEZ-TEMI PA, MARVIN K Ot 433.10 10/26/2014 NUNEZ-TEMI PA, MARVIN K Ot 414.9 10/26/2014 NUNEZ-TEMI PA, MARVIN K Ot 427.31 10/26/2014 NUNEZ-TEMI PA, MARVIN K Ot 428.0 10/26/2014 NUNEZ-TEMI PA, MARVIN K Ot 433.10 04/06/2015 NUNEZ-TEMI PA, MARVIN K Ot 397.0 04/06/2015 NUNEZ-TEMI PA, MARVIN K Ot 414.00 04/06/2015 NUNEZ-TEMI PA, MARVIN K Ot 416.8 04/06/2015 NUNEZ-TEMI PA, MARVIN K Ot 424.0 04/06/2015 NUNEZ-TEMI PA, MARVIN K Ot 428.0 04/06/2015 DARIELA HELLER M GATE WATCHMAN Ot 288.60 04/06/2015 ARRONDARIELA GATE WATCHMAN Ot 790.99 04/06/2015 MARVIN SCHAEFFER Ot 414.9 04/06/2015 MRAVIN SCHAEFFER Ot 427.31 04/06/2015 MARVIN SCHAEFFER Ot 428.0 04/06/2015 MARVIN SCHAEFFER Ot 433.10 04/13/2015 TAYLOR BROWN MD Ot E11.9 TYPE 2 DIABETES MELLITUS WITHOUT COMPLIC 04/13/2015 TAYLOR BROWN MD Ot E78.5 HYPERLIPIDEMIA, UNSPECIFIED 04/13/2015 TAYLOR BROWN MD Ot F17.200 NICOTINE DEPENDENCE, UNSPECIFIED, UNCOMP 04/13/2015 TAYLOR BROWN MD Ot I10 ESSENTIAL (PRIMARY) HYPERTENSION 04/13/2015 TAYLOR BROWN MD Ot I25.10 ATHSCL HEART DISEASE OF [place] CORONARY 04/13/2015 TAYLOR BROWN MD Ot I25.82 CHRONIC TOTAL OCCLUSION OF CORONARY [place] 04/13/2015 TAYLOR BROWN MD Ot I47.2 VENTRICULAR TACHYCARDIA 04/13/2015 TAYLOR BROWN MD Ot I48.0 PAROXYSMAL ATRIAL FIBRILLATION 04/13/2015 TAYLOR BROWN MD Ot I50.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 04/13/2015 TAYLOR BROWN MD Ot J44.9 CHRONIC OBSTRUCTIVE PULMONARY DISEASE, U 04/13/2015 TAYLOR BROWN MD Ot R94.39 ABNORMAL RESULT OF OTHER CARDIOVASCULAR 04/13/2015 TAYLOR BROWN MD Ot Z79.899 OTHER RESIDENTIAL (CURRENT) DRUG THERAPY 05/03/2015 MARVIN SCHAEFFER Ot I25.10 05/03/2015 MARVIN SCHAEFFER Ot I27.0 05/03/2015 MARVIN SCHAEFFER Ot I48.0 05/03/2015 MARVIN SCHAFEFER Ot I65.23 05/04/2015 Ot E11.9 05/04/2015 Ot I10 05/04/2015 Ot I25.10 05/04/2015 Ot I48.0 05/09/2015 MARVIN SCHAEFFER Ot I25.10 05/09/2015 MARVIN SCHAEFFER Ot I27.0 05/09/2015 MARVIN SCHAEFFER Ot I48.0 05/09/2015 MARVIN SCHAEFFER Ot I65.23 05/13/2015 Ot E11.9 05/13/2015 Ot I10 05/13/2015 Ot I25.10 05/13/2015 Ot I48.0 07/08/2015 RENEE SAENZ, THOMAS Payne Ot Z48.812 ENCNTR FOR SURGICAL AFTCR FOLLOWING SURG 07/08/2015 THOMAS DURAN MD Ot Z95.5 PRESENCE OF CORONARY ANGIOPLASTY IMPLANT 07/15/2015 THOMAS DURAN MD Ot Z48.812 ENCNTR FOR SURGICAL AFTCR FOLLOWING SURG 07/15/2015 THOMAS DURAN MD Ot Z95.5 PRESENCE OF CORONARY ANGIOPLASTY IMPLANT 08/21/2015 THOMAS DURAN MD Ot Z48.812 ENCNTR FOR SURGICAL AFTCR FOLLOWING SURG 08/21/2015 THOMAS DURAN MD Ot Z95.5 PRESENCE OF CORONARY ANGIOPLASTY IMPLANT 08/22/2015 THOMAS DURAN MD Ot Z48.812 ENCNTR FOR SURGICAL AFTCR FOLLOWING SURG 08/22/2015 THOMAS DURAN MD Ot Z95.5 PRESENCE OF CORONARY ANGIOPLASTY IMPLANT 08/22/2015 THOMAS DURAN MD Ot Z48.812 ENCNTR FOR SURGICAL AFTCR FOLLOWING SURG 08/22/2015 THOMAS DURAN MD Ot Z95.5 PRESENCE OF CORONARY ANGIOPLASTY IMPLANT 08/22/2015 THOMAS DURAN MD Ot Z48.812 ENCNTR FOR SURGICAL AFTCR FOLLOWING SURG 08/22/2015 THOMAS DURAN MD Ot Z95.5 PRESENCE OF CORONARY ANGIOPLASTY IMPLANT 08/23/2015 THOMAS DURAN MD Ot Z48.812 ENCNTR FOR SURGICAL AFTCR FOLLOWING SURG 08/23/2015 THOMAS DURAN MD Ot Z95.5 PRESENCE OF CORONARY ANGIOPLASTY IMPLANT 09/02/2015 THOMAS DURAN MD Ot Z48.812 ENCNTR FOR SURGICAL AFTCR FOLLOWING SURG 09/02/2015 THOMAS DURAN MD Ot Z95.5 PRESENCE OF CORONARY ANGIOPLASTY IMPLANT 10/17/2015 Ot 433.10 CAROTID ARTERY OCCLUSION W O CEREBRAL IN 10/17/2015 Ot V58.69 OT MED,LT, CURRENT USE 10/17/2015 Ot V72.63 PRE- PROCEDURAL LABORATORY EXAMINATION 10/17/2015 Ot V72.83 EXAM PRE- OPERATIVE NEC 10/17/2015 Ot V74.8 SCREEN- BACTERIAL DIS NEC 05/17/2016 MARVIN SCHAEFFER Ot 397.0 TRICUSPID VALVE DISEASE 05/17/2016 MARVIN SCHAEFFER Ot 414.00 CORON ATHEROSCLER NOS TYPE VESSEL, NATIV 05/17/2016 MARVIN SCHAEFFER Ot 416.8 CHR PULMON HEART DIS NEC 05/17/2016 MARVIN SCHAEFFER Ot 424.0 MITRAL VALVE DISORDER 05/17/2016 MARVIN SCHAEFFER Ot 428.0 CONGESTIVE HEART FAILURE NOS 05/17/2016 DARIELA HELLER GATE WATCHMAN Ot 288.60 LEUKOCYTOSIS, UNSPECIFIED 05/17/2016 DARIELA HELLER GATE WATCHMAN Ot 790.99 BLOOD EXAM - OT NONSPECIFIC FINDINGS 05/17/2016 MARVIN SCHAEFFER Ot 414.9 CHR ISCHEMIC HRT DIS NOS 05/17/2016 MARVIN SCHAEFFER Ot 427.31 ATRIAL FIBRILLATION 05/17/2016 MARVIN SCHAEFFER Ot 428.0 CONGESTIVE HEART FAILURE NOS 05/17/2016 MARVIN SCHAEFFER Ot 433.10 CAROTID ARTERY OCCLUSION W O CEREBRAL IN 05/17/2016 MARVIN SCHAEFFER Ot I25.10 ATHSCL HEART DISEASE OF [place] CORONARY 05/17/2016 MARVIN SCHAEFFER Ot I27.0 PRIMARY PULMONARY HYPERTENSION 05/17/2016 MARVIN SCHAEFFER Ot I48.0 PAROXYSMAL ATRIAL FIBRILLATION 05/17/2016 MARVIN SCHAEFFER Ot I65.23 OCCLUSION AND STENOSIS OF BILATERAL [place] 05/17/2016 Ot E11.9 TYPE 2 DIABETES MELLITUS WITHOUT COMPLIC 05/17/2016 Ot I10 ESSENTIAL ( PRIMARY) HYPERTENSION 05/17/2016 Ot I25.10 ATHSCL HEART DISEASE OF [place] CORONARY 05/17/2016 Ot I48.0 PAROXYSMAL ATRIAL FIBRILLATION 05/20/2016 KEVIN SAENZ, TAYLOR Xiao Ot C43.9 MALIGNANT MELANOMA OF SKIN, UNSPECIFIED 05/20/2016 TAYLOR BROWN MD Ot I25.10 ATHSCL HEART DISEASE OF [place] CORONARY 05/20/2016 TAYLOR BROWN MD Ot I48.0 PAROXYSMAL ATRIAL FIBRILLATION 05/20/2016 TAYLOR BROWN MD Ot I50.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 05/20/2016 TAYLOR BROWN MD Ot I65.23 OCCLUSION AND STENOSIS OF BIL[place]AL [place] 05/20/2016 TAYLOR BROWN MD Ot J44.9 CHRONIC OBSTRUCTIVE PULMONARY DISEASE, U 05/23/2016 TAYLOR BROWN MD Ot C43.9 MALIGNANT MELANOMA OF SKIN, UNSPECIFIED 05/23/2016 TAYLOR BROWN MD Ot I25.10 ATHSCL HEART DISEASE OF [place] CORONARY 05/23/2016 TAYLOR BROWN MD Ot I48.0 PAROXYSMAL ATRIAL FIBRILLATION 05/23/2016 TAYLOR BROWN MD Ot I50.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 05/23/2016 TAYLOR BROWN MD Ot I65.23 OCCLUSION AND STENOSIS OF [place]IL[place] 05/23/2016 TAYLOR BROWN MD Ot J44.9 CHRONIC OBSTRUCTIVE PULMONARY DISEASE, U 06/07/2016 TAYLOR BROWN MD Ot C43.9 MALIGNANT MELANOMA OF SKIN, UNSPECIFIED 06/07/2016 TAYLOR BROWN MD Ot I25.10 ATHSCL HEART DISEASE OF [place] CORONARY 06/07/2016 TAYLOR BROWN MD Ot I48.0 PAROXYSMAL ATRIAL FIBRILLATION 06/07/2016 TAYLOR BROWN MD Ot I50.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 06/07/2016 TAYLOR BROWN MD Ot I65.23 OCCLUSION AND STENOSIS OF [place]IL[place]AL [place] 06/07/2016 TAYLOR BROWN MD Ot J44.9 CHRONIC OBSTRUCTIVE PULMONARY DISEASE, U 06/14/2016 TAYLOR BROWN MD Ot C43.9 MALIGNANT MELANOMA OF SKIN, UNSPECIFIED 06/14/2016 TAYLOR BROWN MD Ot I25.10 ATHSCL HEART DISEASE OF [place] CORONARY 06/14/2016 TAYLOR BROWN MD Ot I48.0 PAROXYSMAL ATRIAL FIBRILLATION 06/14/2016 TAYLOR BROWN MD Ot I50.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 06/14/2016 TAYLOR BROWN MD Ot I65.23 OCCLUSION AND STENOSIS OF [place]AL [place] 06/14/2016 KEVIN SAENZ, TAYLOR Xiao Ot J44.9 CHRONIC OBSTRUCTIVE PULMONARY DISEASE, U 10/16/2016 Ot 433.10 CAROTID ARTERY OCCLUSION W O CEREBRAL IN 10/16/2016 Ot V58.69 OT MED,LT, CURRENT USE 10/16/2016 Ot V72.63 PRE- PROCEDURAL LABORATORY EXAMINATION 10/16/2016 Ot V72.83 EXAM PRE- OPERATIVE NEC 10/16/2016 Ot V74.8 SCREEN- BACTERIAL DIS NEC 05/23/2017 INGE SILVESTRE DO Ot S82.431A DISPLACED OBLIQUE FRACTURE OF SHAFT OF R 05/23/2017 INGE SILVESTRE DO Ot S93.431A SPRAIN OF TIBIOFIBULAR LIGAMENT OF RIGHT 06/04/2017 INGE SILVESTRE DO Ot S82.431A DISPLACED OBLIQUE FRACTURE OF SHAFT OF R 06/04/2017 INGE SILVESTRE DO, Ot S93.431A SPRAIN OF TIBIOFIBULAR LIGAMENT OF RIGHT 06/11/2017 INGE SILVESTRE DO Ot S82.431A DISPLACED OBLIQUE FRACTURE OF SHAFT OF R 06/11/2017 INGE SILVESTRE DO Ot S93.431A SPRAIN OF TIBIOFIBULAR LIGAMENT OF RIGHT 07/10/2017 INGE SILVESTRE DO Ot R06.00 DYSPNEA, UNSPECIFIED 07/16/2017 INGE SILVESTRE DO, Ot R06.00 DYSPNEA, UNSPECIFIED Procedures There is no data. Results There is no data. Encounters ACCT No. Visit Date/Time Discharge Status Pt. Type Provider Facility Loc./Unit Complaint [id number] 06/17/2017 08:36:00 06/17/2017 23:59:59 CLS Outpatient INGE SILVESTRE DO [facility] RT DYSPNEA [id number] 06/04/2017 13:37:00 06/04/2017 23:59:59 CLS Preadmit PAM SAENZ, MUNIRA Pulido [facility] RT DYSPNEA [id number] 05/22/2017 12:18:00 05/22/2017 23:59:59 CLS Outpatient INGE SILVESTRE DO [facility] RAD S93.431A [id number] 05/17/2016 12:30:00 05/17/2016 23:59:59 CLS Outpatient TAYLOR BROWN MD [facility] CARD CAD,CHF,COPD,PAF [id number] 09/02/2015 11:37:00 09/02/2015 12:45:00 DIS Outpatient THOMAS DURAN MD [facility] CR STENT [id number] 08/19/2015 13:59:00 08/21/2015 00:01:00 DIS Outpatient THOMAS DURAN MD [facility] CR STENT [id number] 04/13/2015 08:59:00 04/13/2015 23:59:59 CLS Outpatient TAYLOR BROWN MD [facility] CATH ABNORMAL STRESS TEST,CAD ,PAF,HTN,HLP,DM [id number] 04/06/2015 07:55:00 04/06/2015 23:59:59 CLS Outpatient MARVIN SCHAEFFER [facility] CARD CAD,FLIP,PAF, PULMONARY HTN [id number] 10/01/2014 08:07:00 10/01/2014 23:59:59 CLS Outpatient MARVIN SCHAEFFER [facility] CARD CAD CHF CAROTID ARTERY STENOSIS AFIB [id number] 08/27/2014 09:22:00 08/27/2014 23:59:59 CLS Outpatient DARIELA HELLER [facility] LAB ABNORMAL CBC/ ELEVATED WBC [id number] 04/30/2013 09:58:00 04/30/2013 23:59:59 CLS Outpatient MARVIN SCHAEFFER [facility] CARD CAD CHF COPD [id number] 04/14/2015 13:57:00 Document Registration [id number] 05/23/2011 12:45:00 Document Registration
--- NOTE | 2018-03-27 10:36 | ED Neurological Problem ---
General Chief Complaint: Neuro-Stroke Like Symptoms Stated Complaint: STROKE Source: patient, EMS Exam Limitations: no limitations History of Present Illness Date Seen by Provider: Mar 27, 2018 Time Seen by Provider: 10:36 Initial Comments The patient is a 78-year-old white male resident of [facility] local assisted living facility. He was found in bed immediately prior to the EMS activation. His last known well time was bedtime last night. He presents with right sided weakness, impaired speech. He follows commands but is unable to furrow the right side of his forehead. There is a right facial droop and effacement of the nasolabial fold. Speech yields understandable words but nonsensical sentences. He denies pain. Timing/Duration: unknown Allergies and Home Medications Allergies Coded Allergies: No Known Drug Allergies (Unverified , 03/27/11) Home Medications Aspirin 81 Mg Tablet.dr, 81 MG PO DAILY, (Reported) Atorvastatin Calcium 80 Mg Tablet, 80 MG PO DAILY, (Reported) Carvedilol 6.25 Mg Tablet, 6.25 MG PO BID, (Reported) Cholecalciferol (Vitamin D3) 2,000 Unit Capsule, 2,000 UNIT PO DAILY, (Reported) Digoxin 125 Mcg Tablet, 125 MCG PO DAILY, (Reported) Enalapril Maleate 2.5 Mg Tablet, 2.5 MG PO DAILY, (Reported) Furosemide 40 Mg Tablet, 40 MG PO DAILY, (Reported) Glimepiride 4 Mg Tablet, 4 MG PO DAILY, (Reported) Metformin HCl 500 Mg Tablet, 500 MG PO BID, (Reported) Methimazole 5 Mg Tablet, 5 MG PO DAILY, (Reported) [place] 3 Polyunsat Fatty Acids 1,000 Mg Cap, 1,000 MG PO TID, (Reported) Omeprazole 20 Mg Capsule.dr, 20 MG PO DAILY, (Reported) Ticagrelor 90 Mg Tablet, 90 MG PO BID, (Reported) Patient Home Medication List Home Medication List Reviewed: Yes Review of Systems Review of Systems Constitutional: see HPI Eyes: No Symptoms Reported Ears, Nose, Mouth, Throat: no symptoms reported Respiratory: no symptoms reported Cardiovascular: no symptoms reported Gastrointestinal: no symptoms reported Genitourinary: no symptoms reported Musculoskeletal: muscle weakness Psychiatric/Neurological: See HPI, Unable to Move Lower Ext, Unable to Move Upper Ext (right) Endocrine: No Symptoms Reported Hematologic/Lymphatic: No Symptoms Reported Past Gbluyuc-Yogvwd-Sinidv Hx Immunizations Up To Date Date of Pneumonia Vaccine: Dec 20, 2013 Date of Influenza Vaccine: Dec 20, 2015 Past Medical History Reproductive Disorders: No Skin Physical Exam Vital Signs Vital Signs - First Documented 03/27/18 10:31 Temp 98.0 Pulse 86 Resp 16 B/P (MAP) 143/105 (118) Pulse Ox 98 O2 Delivery Room Air Capillary Refill : Height, Weight, BMI Height: '" Weight: lbs. oz. kg; 29.23 BMI Method: General Appearance: other (elderly appearing white male. No apparent distress. Speech yields words but sentences are nonsense) Neck: full range of motion Respiratory: chest non-tender, lungs clear, normal breath sounds, no respiratory distress, no accessory muscle use, respiratory distress Cardiovascular: normal peripheral pulses, regular rate, rhythm, no edema, no gallop, no JVD, no murmur Gastrointestinal: normal bowel sounds, non tender, soft, no organomegaly, no pulsatile mass Back: normal inspection Crainal Nerves: abnormal speech, facial asymmetry, facial droop, facial weakness, tongue deviation to R Motor/Sensory: weak motor strength RUE, weak motor strength RLE Skin: other (ecchymoses and area of avulsed skin on dorsum of right hand) The patient was unable to furrow his right brow. There was a right facial droop and effacement of the right nasolabial fold. Speech was nonsensical. There was no mobile service rv technician to command on the right hand. The left hand was capable of mobile service rv technician but revealed an intention tremor which was relatively gross. The left lower extremity was normal to straight leg lift. The right lower extremity was not able to be elevated off the bed. Progress/Results/Core Measures Results/Orders Lab Results Laboratory Tests Test 03/27/18 10:00 03/27/18 11:45 Range/Units White Blood Count 19.0 H 4.3-11.0 10^3/uL Red Blood Count 4.97 4.35-5.85 10^6/uL Hemoglobin 14.9 13.3-17.7 G/DL Hematocrit 43 40-54 % Mean Corpuscular Volume 87 80-99 FL Mean Corpuscular Hemoglobin 30 25-34 PG Mean Corpuscular Hemoglobin Concent 35 32-36 G/DL Red Cell Distribution Width 15.7 H 10.0-14.5 % Platelet Count 267 130-400 10^3/uL Mean Platelet Volume 12.5 H 7.4-10.4 FL Neutrophils (%) (Auto) 82 H 42-75 % Lymphocytes (%) (Auto) 11 L 12-44 % Monocytes (%) (Auto) 6 0-12 % Eosinophils (%) (Auto) 1 0-10 % Basophils (%) (Auto) 0 0-10 % Neutrophils # (Auto) 15.6 H 1.8-7.8 X 10^3 Lymphocytes # (Auto) 2.0 1.0-4.0 X 10^3 Monocytes # (Auto) 1.2 H 0.0-1.0 X 10^3 Eosinophils # (Auto) 0.2 0.0-0.3 10^3/uL Basophils # (Auto) 0.0 0.0-0.1 10^3/uL Neutrophils % (Manual) 75 % Lymphocytes % (Manual) 12 % Monocytes % (Manual) 6 % Eosinophils % (Manual) 4 % Basophils % (Manual) 0 % Band Neutrophils 3 % Anisocytosis SLIGHT Sodium Level 137 135-145 MMOL/L Potassium Level 4.1 3.6-5.0 MMOL/L Chloride Level 98 98-107 MMOL/L Carbon Dioxide Level 23 21-32 MMOL/L Anion Gap 16 H 5-14 MMOL/L Blood Urea Nitrogen 25 H 7-18 MG/DL Creatinine 1.43 H 0.60-1.30 MG/DL Estimat Glomerular Filtration Rate 48 BUN/Creatinine Ratio 17 Glucose Level 175 H 70-105 MG/DL Calcium Level 9.8 8.5-10.1 MG/DL Corrected Calcium 9.6 8.5-10.1 MG/DL Total Bilirubin 0.4 0.1-1.0 MG/DL Aspartate Amino Transf (AST/SGOT) 21 5-34 U/L Alanine Aminotransferase (ALT/SGPT) 23 0-55 U/L Alkaline Phosphatase 47 40-136 U/L Total Protein 7.3 6.4-8.2 GM/DL Albumin 4.3 3.2-4.5 GM/DL Urine Color YELLOW Urine Clarity CLEAR Urine pH 6 5-9 Urine Specific [place] 1.020 1.016-1.022 Urine Protein 2+ H NEGATIVE Urine Glucose (UA) NEGATIVE NEGATIVE Urine Ketones 1+ H NEGATIVE Urine Nitrite NEGATIVE NEGATIVE Urine Bilirubin NEGATIVE NEGATIVE Urine Urobilinogen 1 NORMAL MG/DL Urine Leukocyte Esterase 1+ H NEGATIVE Urine RBC (Auto) NEGATIVE NEGATIVE Urine RBC NONE /HPF Urine WBC RARE /HPF Urine Squamous Epithelial Cells 0-2 /HPF Urine Crystals NONE /LPF Urine Bacteria TRACE /HPF Urine Casts PRESENT /LPF Urine Hyaline Casts 0-2 H /LPF Urine Mucus SMALL H /LPF Urine Culture Indicated NO My Orders Orders - KEY BILL MD Ct Head Wo-R/O Stroke (03/27/18 10:36) Cbc With Automated Diff (03/27/18 10:58) Comprehensive Metabolic Panel (03/27/18 10:58) Ua Culture If Indicated (03/27/18 10:58) Ekg Tracing (03/27/18 10:58) Manual Differential (03/27/18 10:00) Vital Signs/I&O 03/27/18 03/27/18 10:31 11:13 Temp 98.0 Pulse 86 69 Resp 16 17 B/P (MAP) 143/105 (118) 141/76 Pulse Ox 98 100 O2 Delivery Room Air Departure Communication (Admissions) NIH scale was [address] scan showed an acute area of infarct in the area of the left frontal lobe. This was then discussed with Dr. Lerma of the neurology/stroke team At 1130. The onset is unclear by history. But may be as long as 2230 yesterday. This puts him outside the TPA window. Accordingly he will be admitted with consideration of inpatient rehabilitation after he appears stable. Impression Primary Impression: ischemic CVA with right hemiparesis Disposition: ADMITTED INPATIENT Condition: Stable/Unchanged Admissions Decision to Admit Reason: Admit from ER (General) Decision to Admit/Date: Mar 27, 2018 Time/Decision to Admit Time: 11:42 Departure-Patient Inst. Referrals: INGE SILVESTRE DO (PCP/Family) Primary Care Physician KEY BILL MD Mar 27, 2018 10:36
--- NOTE | 2018-03-27 11:04 | Diagnostic Imaging Report ---
PROCEDURE: CT head wo r/o stroke. TECHNIQUE: Multiple contiguous axial images were obtained through the brain without the use of intravenous contrast. INDICATION: Found down. Dysarthria. COMPARISON: None. FINDINGS: There is an area of abnormal loss of carmona-white matter junction differentiation involving the left subinsular region extending into the centrum semiovale of the left frontal lobe. Findings are concerning for acute infarct. There is no evidence of hemorrhagic transformation. There is no mass effect or midline shift. Ventricles and cortical sulci are otherwise diffusely prominent consistent with age-related parenchymal volume loss. There are also scattered and confluent areas of decreased attenuation within the periventricular and subcortical deep white matter consistent with small vessel ischemic changes; presumably chronic. There is no prior available for comparison. Evaluation of the bony calvarium demonstrates large lucent lesion posteriorly extending to the left lateral of midline. Area in question measures 3.8 cm in transverse dimension and erodes the inner table. Hounsfield units suggest a fat-containing lesion. Visualized portions of paranasal sinuses and mastoid air cells are unremarkable. IMPRESSION: 1. Acute appearing infarct involving the left frontal lobe as described above. No hemorrhagic transformation. 2. Background of age-related parenchymal volume loss and small vessel ischemic changes in deep white matter; presumably chronic. 3. Large lucent lesion within the left parasagittal posterior calvarium. Again, Hounsfield units suggest fat containing lesion such as possible intraosseous dermoid. Lytic malignant lesion is felt to be less likely, but correlation with pre-and postcontrast MR is recommended. Results are discussed with Dr. Boom Whitehead by Dr. Lerma at approximately 1055 hrs. on 03/27/2018. Dictated by: Dictated on workstation # [id number]
[2018-03-27 11:05] LABS: BASOPHILS % (AUTO) 0 % (0-10); EOSINOPHILS # (AUTO) 0.2 10^3/uL (0.0-0.3); EOSINOPHILS % (AUTO) 1 % (0-10); HEMATOCRIT 43 % (40-54); HEMOGLOBIN 14.9 G/DL (13.3-17.7); LYMPHOCYTES % (AUTO) 11 % (12-44); MEAN CORPUSCULAR HEMOGLOBIN 30 PG (25-34); MEAN CORPUSCULAR HGB CONC 35 G/DL (32-36); MEAN CORPUSCULAR VOLUME 87 FL (80-99); MEAN PLATELET VOLUME 12.5 FL (7.4-10.4); MONOCYTES # (AUTO) 1.2 X 10^3 (0.0-1.0); MONOCYTES % (AUTO) 6 % (0-12); NEUTROPHILS # (AUTO) 15.6 X 10^3 (1.8-7.8); NEUTROPHILS % (AUTO) 82 % (42-75); PLATELET COUNT 267 10^3/uL (130-400); RED BLOOD COUNT 4.97 10^6/uL (4.35-5.85); RED CELL DISTRIBUTION WIDTH 15.7 % (10.0-14.5)
[2018-03-27 11:13] VITALS: BP 141/76
[2018-03-27 11:16] LABS: ALBUMIN 4.3 GM/DL (3.2-4.5); BILIRUBIN,TOTAL 0.4 MG/DL (0.1-1.0); CALCIUM 9.8 MG/DL (8.5-10.1); CREATININE SERUM 1.43 MG/DL (0.60-1.30); POTASSIUM 4.1 MMOL/L (3.6-5.0); TOTAL PROTEIN 7.3 GM/DL (6.4-8.2)
[2018-03-27 11:42] LABS: ANISOCYTOSIS SLIGHT; BAND NEUTROPHILS 3 %; BASOPHILS % (MANUAL) 0 %; EOSINOPHILS % (MANUAL) 4 %; LYMPHOCYTES % (MANUAL) 12 %; MONOCYTES % (MANUAL) 6 %; NEUTROPHILS % (MANUAL) 75 %
[2018-03-27 11:51] LABS: BILIRUBIN,URINE NEGATIVE (NEGATIVE); CLARITY,URINE CLEAR; COLOR,URINE YELLOW; GLUCOSE, URINE (UA) NEGATIVE (NEGATIVE); KETONES,URINE 1+ (NEGATIVE); LEUKOCYTE ESTERASE ,URINE 1+ (NEGATIVE); NITRITE,URINE NEGATIVE (NEGATIVE); PH,URINE 6 (5-9); PROTEIN,URINE 2+ (NEGATIVE); UROBILINOGEN,URINE 1 MG/DL (NORMAL)
[2018-03-27 11:59] LABS: BACTERIA,URINE TRACE /HPF; HYALINE CASTS, URINE 0-2 /LPF; SQUAMOUS EPITHELIAL CELL,UR 0-2 /HPF; WBC,URINE RARE /HPF
--- OUTSIDE RECORDS SUMMARY | 2018-03-27 12:42 | XMS REPORT | Encounter Summary ---
Author Author [facility] Organization [facility] Address Unknown Phone Unavailable Care Team Providers Care Behavioral Geneticist Name Role Phone BlakeMilena Unavailable Unavailable Celio Hernandez MD PCP Leyda Grace RN Unavailable Unavailable Sonja Shah RN Unavailable Unavailable Reason for Visit * Reason Comments Labs Only BMP Encounter Details Care Team Description Date Type Department Shantel Troy RN Labs Only (BMP) 01/08/2018 Documentation Cardiovascular Medicine [facility] [place] [address] Social History Date Tobacco Use Types Packs/Day [...] METABOLIC PANEL (01/08/2018) Sodium 136 [facility] Potassium 4.4 [facility] Chloride 100 [facility] CO2 28.0 [facility] Blood Urea Nitrogen 19 [facility] Creatinine 1.1 [facility] Glucose 128 (H) [facility] Calcium 9.4 [facility] Non 91 [facility] Anion Gap 12 [facility] Specimen Blood - Blood Performing Organization Address City/State/Zipcode Phone Number [facility] [address] [place] [address] [phone] in this encounter Visit Diagnoses Diagnosis Drug therapy changed Encounter for long-term (current) use of other medications Chronic systolic heart failure (HCC) Chronic systolic heart failure in this encounter
--- OUTSIDE RECORDS SUMMARY | 2018-03-27 12:42 | XMS REPORT | Encounter Summary ---
Author Author [facility] Organization [facility] Address Unknown Phone Unavailable Care Team Providers Care Airway Controller Name Role Phone BlakeMliena Unavailable Unavailable Celio Hernandez MD PCP Leyda Grace RN Unavailable Unavailable Sonja Shah RN Unavailable Unavailable Encounter Details Care Team Description Date Type Department Sanjay Raphael MD [address] [place] [address] 12/25/2017 [facility] Cardiovascular Medicine Encounter Remote Device Check [phone] Social History Date Tobacco Use Types Packs/Day [...] daily. Coronary artery disease Take with involving [place] coronary food. artery of [place] heart, angina presence unspecified, Ischemic cardiomyopathy, Chronic [...] Hyperlipidemia, unspecified hyperlipidemia type, Pulmonary hypertension ([facility]), Ischemic cardiomyopathy, Coronary artery disease involving [place] coronary artery of [place] heart, angina presence unspecified, History of atrial fibrillation, NSVT (nonsustained ventricular tachycardia) ([facility]), VF (ventricular fibrillation) ([facility]), Essential hypertension methimazole (TAPAZOLE) 5 Take 5 mg by 0 mg tablet mouth daily. 11/02/2015 nitroglycerin (NITROSTAT) Place 1 Tab 25 Tab 3 0.4 mg tabletIndications: under tongue Coronary artery disease every 5 involving [place] coronary minutes as artery of [place] heart, needed for angina presence Chest Pain. unspecified, Chronic systolic heart failure (HCC), Ischemic cardiomyopathy, Chronic obstructive pulmonary disease, unspecified COPD type ([facility]), Hyperlipidemia, unspecified hyperlipidemia type, Pulmonary hypertension ([facility]) [place]-3 Fatty Take 1 Cap by 0 Acids-Vitamin E 1,000 mg mouth daily. cap omeprazole DR(+) Take 40 mg by 0 (PRILOSEC) 40 mg capsule mouth daily. 06/05/2017 rosuvastatin (CRESTOR) 20 Take 1 tablet 90 tablet 3 mg tablet by mouth daily. 11/19/2017 spironolactone Take one-half 45 tablet 3 (ALDACTONE) 25 mg tablet by tabletIndications: mouth daily. Coronary artery disease Take with involving [place] coronary food. artery of [place] heart, angina presence unspecified, Chronic systolic heart failure (HCC), Ischemic cardiomyopathy, Chronic obstructive pulmonary disease, unspecified COPD type (HCC), Hyperlipidemia, unspecified hyperlipidemia type, Pulmonary hypertension ([facility]) 12/05/2017 12/27/2017 furosemide (LASIX) 20 mg Take [...] MRI XT DR CHENG OTHER OUTSIDE LAB [id number] Generator Serial # [id number] OTHER OUTSIDE LAB Generator Implnat Date 03/20/2016 OTHER OUTSIDE LAB MONSE/EOL Indicator Per entry level programmer OTHER OUTSIDE LAB Generator Treating Plant Pumper Medtronic OTHER OUTSIDE LAB Generator Investigational No OTHER OUTSIDE LAB Wireless Generator Yes OTHER OUTSIDE LAB Device Type DDD-ICD OTHER OUTSIDE LAB Device [place] [employer] OTHER OUTSIDE LAB Transmitter Compatible RV Lead Model # SPRINT QUATTRO SECURE S MRI OTHER OUTSIDE LAB SURESCAN 6935M-62CM RV Lead Serial # [id number] OTHER OUTSIDE LAB RV Lead Implant Date 03/20/2016 OTHER OUTSIDE LAB RV Lead Diaph. 10 OTHER OUTSIDE LAB Stimulation RV Lead Investigational No OTHER OUTSIDE LAB RV Lead Fixation active fixation OTHER OUTSIDE LAB RV Lead Location RV apex OTHER OUTSIDE LAB RV Lead Coil Single OTHER OUTSIDE LAB RV Lead Treating Plant Pumper Medtronic OTHER OUTSIDE LAB Atrial Lead Model # CAPSUREFIX NOVUS MRI SURESCAN OTHER OUTSIDE LAB 5076-52CM Atrial Lead Serial # [id number] OTHER OUTSIDE LAB Atrial Lead Implant Date 03/20/2016 OTHER OUTSIDE LAB Atrial Lead Diaph. 10 OTHER OUTSIDE LAB Stimulation Atrial Lead Treating Plant Pumper Medtronic OTHER OUTSIDE LAB Atrial Lead No [...] Due 12/26/17 OTHER OUTSIDE LAB AT/AF Daily [place] Hours 6 OTHER OUTSIDE LAB Average Vent Rate during 100 OTHER OUTSIDE LAB AT/AF #BPM Average Vent Rate During 6 OTHER OUTSIDE LAB AT/AF #Hours Remote Monitoring? Yes OTHER OUTSIDE LAB Daily [place] Threshld On OTHER OUTSIDE LAB Alert? Average Venticular Rate On OTHER OUTSIDE LAB AT/AF On/Off VF Detection/Therapy Off On OTHER OUTSIDE LAB Device Implanted By Sanjay Raphael M.D. OTHER OUTSIDE LAB EP Device Followed by [facility] OTHER OUTSIDE LAB Name Pacemaker Dependant No [...]
--- OUTSIDE RECORDS SUMMARY | 2018-03-27 12:42 | XMS REPORT | Encounter Summary ---
Author Author [facility] Organization [facility] Address Unknown Phone Unavailable Care Team Providers Care Managing Partner Name Role Phone BlakeMilena Unavailable Unavailable Celio Hernandez MD PCP Leyda Grace RN Unavailable Unavailable Sonja Shah RN Unavailable Unavailable Encounter Details Care Team Description Date Type Department Sanjay Raphael MD [address] [place] [address] Arrived 03/26/2018 [facility] Cardiovascular Medicine Encounter Remote Device Check [phone] Social History Date Tobacco Use Types Packs/Day [...]
--- OUTSIDE RECORDS SUMMARY | 2018-03-27 12:42 | XMS REPORT | Encounter Summary ---
Author Author [facility] Organization [facility] Address Unknown Phone Unavailable Care Team Providers Care Hospital Wellness Coordinator Name Role Phone BlakeMilena Unavailable Unavailable Celio [...] in one week) 12/27/2017 Telephone Cardiovascular Medicine [facility] [place] [address] Social History Date Tobacco Use [...] Phone Number [facility] [address] , [place] [address] 10A in this encounter Visit Diagnoses Diagnosis Drug therapy changed - Primary Encounter for long-term (current) use of other medications Chronic systolic heart failure (HCC) Chronic systolic heart failure in this encounter
--- OUTSIDE RECORDS SUMMARY | 2018-03-27 12:42 | XMS REPORT | Clinical Summary ---
Author Author [facility] Organization [facility] Address Unknown Phone Unavailable Care Team Providers Care Supervisor Logging Name Role Phone BlakeMilena Unavailable Unavailable Celio Hernandez MD PCP Leyda Grace RN Unavailable Unavailable Sonja Shah RN Unavailable Unavailable Source Comments Some departments are not documenting in the electronic medical record. If you do not see the information that you expected, contact Release of Information in the Health Information Management department at [phone] for further assistance in locating additional records.[facility] Allergies No Known Allergies Medications End Date Status Medication Sig Dispensed Refills Start Date Active [place]-3 Fatty Take 1 Cap by 0 Acids-Vitamin [...] 6 Coronary artery disease every 5 involving [place] coronary minutes as artery of [place] heart, needed for angina presence Chest Pain. unspecified, Chronic systolic heart failure (HCC), Ischemic cardiomyopathy, Chronic obstructive pulmonary disease, unspecified COPD type (HCC), Hyperlipidemia, unspecified hyperlipidemia type, Pulmonary hypertension (HCC) Active aspirin EC 81 mg Take 1 Tab by 90 Tab 3 tabletIndications: mouth daily. 6 Coronary artery disease Take with involving [place] coronary food. artery of [place] heart, angina presence unspecified, Ischemic cardiomyopathy, Chronic [...] (HCC), Ischemic cardiomyopathy, Coronary artery disease involving [place] coronary artery of [place] heart, angina presence unspecified, History of atrial fibrillation, NSVT (nonsustained ventricular tachycardia) (HCC), VF (ventricular fibrillation) (HCC), Essential hypertension Active carvedilol (COREG) 25 mg Take one 180 tablet 1 tablet tablet by 8 mouth twice daily. Active spironolactone Take one-half 45 tablet 3 (ALDACTONE) 25 mg tablet by 8 tabletIndications: mouth daily. Coronary artery disease Take with involving [place] coronary food. artery of [place] heart, angina presence unspecified, Chronic systolic heart [...] Ischemic cardiomyopathy 05/06/2015 CAD (coronary artery disease), [place] coronary artery Overview: 04/13/15 - cardiac cath: [...] Organization Address City/State/Zipcode Phone Number [facility] [address] [place] [address] [phone] * DEVICE EVALUATION - REMOTE ICD (12/31/2017 11:06 AM CDT) Generator Model # EVERA MRI XT DR CHENG OTHER OUTSIDE LAB [id number] Generator Serial # [id number] OTHER OUTSIDE LAB Generator Implnat Date 03/20/2016 OTHER OUTSIDE LAB MONSE/EOL Indicator Per gis programmer OTHER OUTSIDE LAB Generator Editing Internship Medtronic OTHER OUTSIDE LAB Generator Investigational No OTHER OUTSIDE LAB Wireless Generator Yes OTHER OUTSIDE LAB Device Type DDD-ICD OTHER OUTSIDE LAB Device [place] [employer] OTHER OUTSIDE LAB Transmitter Compatible RV Lead Model # SPRINT QUATTRO SECURE S MRI OTHER OUTSIDE LAB [place] 6935M-62CM RV Lead Serial # [id number] OTHER OUTSIDE LAB RV Lead Implant Date 03/20/2016 OTHER OUTSIDE LAB RV Lead Diaph. 10 OTHER OUTSIDE LAB Stimulation RV Lead Investigational No OTHER OUTSIDE LAB RV Lead Fixation active fixation OTHER OUTSIDE LAB RV Lead Location RV apex OTHER OUTSIDE LAB RV Lead Coil Single OTHER OUTSIDE LAB RV Lead Editing Internship Medtronic OTHER OUTSIDE LAB Atrial Lead Model # CAPSUREFIX NOVUS MRI SURESCAN OTHER OUTSIDE LAB 5076-52CM Atrial Lead Serial # [id number] OTHER OUTSIDE LAB Atrial Lead Implant Date 03/20/2016 OTHER OUTSIDE LAB Atrial Lead Diaph. 10 OTHER OUTSIDE LAB Stimulation Atrial Lead Editing Internship Medtronic OTHER OUTSIDE LAB Atrial Lead No [...] Due 12/26/17 OTHER OUTSIDE LAB AT/AF Daily [place] Hours 6 OTHER OUTSIDE LAB Average Vent Rate during 100 OTHER OUTSIDE LAB AT/AF #BPM Average Vent Rate During 6 OTHER OUTSIDE LAB AT/AF #Hours Remote Monitoring? Yes OTHER OUTSIDE LAB Daily [place] Threshld On OTHER OUTSIDE LAB Alert? Average [...] on file. For more information, please contact: [facility] [address] [place] [address] Date Inactivated Comments Code Status Date Activated [...]
--- OUTSIDE RECORDS SUMMARY | 2018-03-27 12:43 | XMS REPORT | Continuity of Care Document ---
Author Author [facility] Organization [facility] Address Unknown Phone Unavailable Allergies Active Description Code Type Severity Reaction Onset Reported/Identified Relationship to Patient Clinical Status Yes No Known Drug Allergies [id number] Drug Allergy Unknown N/A 03/27/2011 Medications There [...] MARVIN K Ot 428.0 09/02/2014 DARIELA HELLER LOG CARRIER OPERATOR Ot 288.60 09/02/2014 DARIELA HELLER Ot 790.99 09/02/2014 MARVIN SCHAEFFER K Ot 397.0 09/02/2014 CHINEDU SCHAEFFERTH K Ot 414.00 09/02/2014 SOL LOMAS, MARVIN K Ot 416.8 09/02/2014 SOL LOMAS, MARVIN K Ot 424.0 09/02/2014 NUNEZ-TEMI PA, MARVIN K Ot 428.0 09/02/2014 ARRONDARIELA LOG CARRIER OPERATOR Ot 288.60 09/02/2014 ARRONDARIELA LOG CARRIER OPERATOR Ot 790.99 09/20/2014 HELLERDARIELA LOG CARRIER OPERATOR Ot 288.60 09/20/2014 HELLERDARIELA LOG CARRIER OPERATOR Ot 790.99 09/30/2014 ARRONDARIELA LOG CARRIER OPERATOR Ot 288.60 09/30/2014 ARRONDARIELA LOG CARRIER OPERATOR Ot 790.99 10/01/2014 NUNEZ-TEMI PA, MARVIN K Ot 397.0 10/01/2014 NUNEZ-TEMI PA, MARVIN K Ot 414.00 10/01/2014 NUNEZ-TEMI PA, MARVIN K Ot 416.8 10/01/2014 NUNEZ-TEMI PA, MARVIN K Ot 424.0 10/01/2014 NUNEZ-TEMI PA, MARVIN K Ot 428.0 10/01/2014 ARRONDARIELA LOG CARRIER OPERATOR Ot 288.60 10/01/2014 ARRONDARIELA LOG CARRIER OPERATOR Ot 790.99 10/25/2014 NUNEZ-TEMI PA, MARVIN K [...] K Ot 428.0 04/06/2015 DARIELA HELLER M LOG CARRIER OPERATOR Ot 288.60 04/06/2015 ARRONDARIELA LOG CARRIER OPERATOR Ot 790.99 04/06/2015 MARVIN SCHAEFFER Ot 414.9 04/06/2015 MARVIN SCHAEFFER Ot 427.31 04/06/2015 MARVIN SCHAEFFER Ot 428.0 04/06/2015 MARVIN SCHAEFFER Ot 433.10 04/13/2015 TAYLOR BROWN MD Ot E11.9 TYPE 2 DIABETES MELLITUS WITHOUT COMPLIC 04/13/2015 TAYLOR BROWN MD Ot E78.5 HYPERLIPIDEMIA, UNSPECIFIED 04/13/2015 TAYLOR BROWN MD Ot F17.200 NICOTINE DEPENDENCE, UNSPECIFIED, UNCOMP 04/13/2015 TAYLOR BROWN MD Ot I10 ESSENTIAL (PRIMARY) HYPERTENSION 04/13/2015 TAYLOR BROWN MD Ot I25.10 ATHSCL HEART DISEASE OF [place] CORONARY 04/13/2015 TAYLOR BROWN MD Ot I25.82 [...] 04/13/2015 TAYLOR BROWN MD Ot Z79.899 OTHER HALF-WAY (CURRENT) DRUG THERAPY 05/03/2015 MARVIN SCHAEFFER Ot I25.10 05/03/2015 MARVIN SCHAEFFER Ot I27.0 05/03/2015 MARVIN SCHAEFFER Ot I48.0 05/03/2015 MARVIN SCHAEFFER Ot I65.23 05/04/2015 Ot E11.9 05/04/2015 Ot [...] CONGESTIVE HEART FAILURE NOS 05/17/2016 DARIELA HELLER LOG CARRIER OPERATOR Ot 288.60 LEUKOCYTOSIS, UNSPECIFIED 05/17/2016 DARIELA HELLER LOG CARRIER OPERATOR Ot 790.99 BLOOD EXAM - OT NONSPECIFIC FINDINGS 05/17/2016 MARVIN SCHAEFFER Ot 414.9 CHR ISCHEMIC HRT DIS NOS 05/17/2016 MARVIN SCHAEFFER Ot 427.31 ATRIAL FIBRILLATION 05/17/2016 MARVIN SCHAEFFER Ot 428.0 CONGESTIVE HEART FAILURE NOS 05/17/2016 MARVIN SCHAEFFER Ot 433.10 CAROTID ARTERY OCCLUSION W O CEREBRAL IN 05/17/2016 MARVIN SCHAEFFER Ot I25.10 ATHSCL HEART DISEASE OF [place] CORONARY 05/17/2016 MARVIN SCHAEFFER Ot I27.0 PRIMARY PULMONARY HYPERTENSION 05/17/2016 MARVIN SCHAEFFER Ot I48.0 PAROXYSMAL ATRIAL FIBRILLATION 05/17/2016 MARVIN SCHAEFFER Ot I65.23 OCCLUSION AND STENOSIS OF [place]ILATERAL [place] 05/17/2016 Ot E11.9 TYPE 2 DIABETES MELLITUS WITHOUT COMPLIC 05/17/2016 Ot I10 ESSENTIAL ( PRIMARY) HYPERTENSION 05/17/2016 Ot I25.10 ATHSCL HEART DISEASE OF [place] CORONARY 05/17/2016 Ot I48.0 PAROXYSMAL ATRIAL FIBRILLATION 05/20/2016 KEVIN SAENZ, TAYLOR Xiao Ot C43.9 MALIGNANT MELANOMA OF SKIN, UNSPECIFIED 05/20/2016 TAYLOR BROWN MD Ot I25.10 ATHSCL HEART DISEASE OF [place] CORONARY 05/20/2016 TAYLOR BROWN MD Ot I48.0 [...] MD Ot I25.10 ATHSCL HEART DISEASE OF [place] CORONARY 05/23/2016 TAYLOR BROWN MD Ot I48.0 [...] MD Ot I25.10 ATHSCL HEART DISEASE OF [place] CORONARY 06/07/2016 TAYLOR BROWN MD Ot I48.0 [...] MD Ot I25.10 ATHSCL HEART DISEASE OF [place] CORONARY 06/14/2016 TAYLOR BROWN MD Ot I48.0 PAROXYSMAL ATRIAL FIBRILLATION 06/14/2016 TAYLOR BROWN MD Ot I50.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 06/14/2016 TAYLOR BROWN MD Ot I65.23 OCCLUSION AND STENOSIS OF [place]ILATERAL [place] 06/14/2016 TAYLOR BROWN MD Ot J44.9 CHRONIC OBSTRUCTIVE [...] Ot R06.00 DYSPNEA, UNSPECIFIED 07/16/2017 INGE SILVESTRE DO Ot R06.00 DYSPNEA, UNSPECIFIED Procedures There is no data. Results Test Result Range Complete blood count (CBC) with automated white blood cell (WBC) differential - 03/27/18 10:00 Blood leukocytes automated count (number/volume) 19.0 10*3/uL 4.3-11.0 Blood erythrocytes automated count (number/volume) 4.97 10*6/uL 4.35-5.85 Venous blood hemoglobin measurement (mass/volume) 14.9 g/dL 13.3-17.7 Blood hematocrit (volume fraction) 43 % 40-54 Automated erythrocyte mean corpuscular volume 87 [foz_us] 80-99 Automated erythrocyte mean corpuscular hemoglobin (mass per erythrocyte) 30 pg 25-34 Automated erythrocyte mean corpuscular hemoglobin concentration measurement ( mass/volume) 35 g/dL 32-36 Automated erythrocyte distribution width ratio 15.7 % 10.0-14.5 Automated blood platelet count (count/volume) 267 10*3/uL 130-400 Automated blood platelet mean volume measurement 12.5 [foz_us] 7.4-10.4 Automated blood neutrophils/100 leukocytes 82 % 42-75 Automated blood lymphocytes/100 leukocytes 11 % 12-44 Blood monocytes/100 leukocytes 6 % 0-12 Automated blood eosinophils/100 leukocytes 1 % 0-10 Automated blood basophils/100 leukocytes 0 % 0-10 Blood neutrophils automated count (number/volume) 15.6 10*3 1.8-7.8 Blood lymphocytes automated count (number/volume) 2.0 10*3 1.0-4.0 Blood monocytes automated count (number/volume) 1.2 10*3 0.0-1.0 Automated eosinophil count 0.2 10*3/uL 0.0-0.3 Automated blood basophil count (count/volume) 0.0 10*3/uL 0.0-0.1 Comprehensive metabolic panel - 03/27/18 10:00 Serum or plasma sodium measurement (moles/volume) 137 mmol/L 135-145 Serum or plasma potassium measurement (moles/volume) 4.1 mmol/L 3.6-5.0 Serum or plasma chloride measurement (moles/volume) 98 mmol/L 98-107 Carbon dioxide 23 mmol/L 21-32 Serum or plasma anion gap determination (moles/volume) 16 mmol/L 5-14 Serum or plasma urea nitrogen measurement (mass/volume) 25 mg/dL 7-18 Serum or plasma creatinine measurement (mass/volume) 1.43 mg/dL 0.60-1.30 Serum or plasma urea nitrogen/creatinine mass ratio 17 NRG Serum or plasma creatinine measurement with calculation of estimated glomerular filtration rate 48 NRG Serum or plasma glucose measurement (mass/volume) 175 mg/dL 70-105 Serum or plasma calcium measurement (mass/volume) 9.8 mg/dL 8.5-10.1 Serum or plasma total bilirubin measurement (mass/volume) 0.4 mg/dL 0.1-1.0 Serum or plasma alkaline phosphatase measurement (enzymatic activity/volume) 47 U/L 40-136 Serum or plasma aspartate aminotransferase measurement (enzymatic activity/ volume) 21 U/L 5-34 Serum or plasma alanine aminotransferase measurement (enzymatic activity/volume ) 23 U/L 0-55 Serum or plasma protein measurement (mass/volume) 7.3 g/dL 6.4-8.2 Serum or plasma albumin measurement (mass/volume) 4.3 g/dL 3.2-4.5 CALCIUM CORRECTED 9.6 mg/dL 8.5-10.1 Blood manual differential performed detection - 03/27/18 10:00 Blood monocytes/100 leukocytes 6 % NRG Manual blood segmented neutrophils/100 leukocytes 75 % NRG Blood band neutrophils/100 leukocytes 3 % NRG Manual blood lymphocytes/100 leukocytes 12 % NRG Manual eosinophils/100 leukocytes in nose 4 % NRG Manual blood basophils/100 leukocytes 0 % NRG Blood anisocytosis detection by light microscopy SLIGHT NRG Complete urinalysis with reflex to culture - 03/27/18 11:45 Urine color determination YELLOW NRG Urine clarity determination CLEAR NRG Urine pH measurement by test strip 6 5-9 Specific gravity of urine by test strip 1.020 1.016- 1.022 Urine protein assay by test strip, semi-quantitative 2+ NEGATIVE Urine glucose detection by automated test strip NEGATIVE NEGATIVE Erythrocytes detection in urine sediment by light microscopy NEGATIVE NEGATIVE Urine ketones detection by automated test strip 1+ NEGATIVE Urine nitrite detection by test strip NEGATIVE NEGATIVE Urine total bilirubin detection by test strip NEGATIVE NEGATIVE Urine urobilinogen measurement by automated test strip (mass/volume) 1 mg/dL NORMAL Urine leukocyte esterase detection by dipstick 1+ NEGATIVE Automated urine sediment erythrocyte count by microscopy (number/high power field) NONE NRG Automated urine sediment leukocyte count by microscopy (number/high power field ) RARE NRG Bacteria detection in urine sediment by light microscopy TRACE NRG Squamous epithelial cells detection in urine sediment by light microscopy 0-2 NRG Crystals detection in urine sediment by light microscopy NONE NRG Casts detection in urine sediment by light microscopy PRESENT NRG Mucus detection in urine sediment by light microscopy SMALL NRG Complete urinalysis with reflex to culture NO NRG Hyaline casts detection in urine sediment by light microscopy 0-2 NRG Encounters ACCT No. Visit Date/Time Discharge Status Pt. Type Provider Facility Loc./Unit Complaint [id number] 06/17/2017 08:36:00 06/17/2017 23:59:59 CLS Outpatient INGE SILVESTRE DO [facility] RT DYSPNEA [id number] 06/04/2017 13:37:00 06/04/2017 23:59:59 CLS Preadmit PAM SAENZ, MUNIRA Pulido [facility] RT DYSPNEA [id number] 05/22/2017 12:18:00 05/22/2017 23:59:59 CLS Outpatient INGE SILVESTRE DO [place] [facility] RAD [id number] 05/17/2016 12:30:00 05/17/2016 23:59:59 CLS Outpatient TAYLOR BROWN MD [facility] CARD CAD,CHF,COPD,PAF [id number] 09/02/2015 11:37:00 09/02/2015 12:45:00 DIS Outpatient THOMAS DURAN MD [facility] CR STENT [id number] 08/19/2015 13:59:00 08/21/2015 00:01:00 DIS Outpatient THOMAS DURAN MD [facility] CR STENT [id number] 04/13/2015 08:59:00 04/13/2015 23:59:59 CLS Outpatient TAYLOR BROWN MD [facility] CATH ABNORMAL STRESS TEST,CAD ,PAF,HTN,HLP,DM [id number] 04/06/2015 07:55:00 04/06/2015 23:59:59 CLS Outpatient MARVIN SCHAEFFER [facility] CARD CAD,FLIP,PAF, PULMONARY HTN [id number] 10/01/2014 08:07:00 10/01/2014 23:59:59 CLS Outpatient MARVIN SCHAEFFER [facility] CARD CAD CHF CAROTID ARTERY STENOSIS AFIB [id number] 08/27/2014 09:22:00 08/27/2014 23:59:59 CLS Outpatient DARIELA HELLER [facility] LAB ABNORMAL CBC/ ELEVATED WBC [id number] 04/30/2013 09:58:00 04/30/2013 23:59:59 CLS Outpatient MARVIN SCHAEFFER [facility] CARD CAD CHF COPD [id number] 03/27/2018 11:06:00 Document Registration [id number] 04/14/2015 13:57:00 Document Registration [id number] 05/23/2011 12:45:00 Document Registration
--- NOTE | 2018-03-27 13:00 | NUR ---
HARI MAIN admitted to room 418-1, with an admitting diagnosis of CVA R HEMIPARESIS, on 03/27/18 from ER via CART, accompanied by ER STAFF.[facility]ARI MAIN introduced to surroundings, call light, bed controls, phone, TV, temperature control, lights, meal times, smoking policy, visitor policy, side rail policy, bathrooms and showers. Patient Rights given to patient in the handbook. [facility]I MAIN verbalizes understanding that [facility] is not responsible for the loss or damage to any personal effects or valuables that are kept in the patients posession during their hospitalization. The following Patient Care Plans were discussed with the PT: Discharge Planning, S;T CEREBRA; TISSUE [PERFUSION, INEFF AIRWAY CLEARANCE, IMP MOBILITY, UNILATERAL NEGLECT, SEF CARE DEFICIT, IMP COMMUNICATION, AND HIGH RISK ASPIRATION. [facility] MAIN verbalizes understanding of Interdisciplinary Patient Education. Patient and/or family were informed about the Rapid Response Team and its purpose. PT CAME TO FLOOR W/ SL IN L AC
[2018-03-27 13:10] VITALS: BP 128/62
[2018-03-27] MEDS ORDERED: ATOR80TA64 PO (13:42)
[2018-03-27] MEDS ORDERED: TICA90TA PO (13:42)
[2018-03-27] MEDS ORDERED: DIGO125T PO (13:42)
[2018-03-27] MEDS ORDERED: ENAL2.5T PO (13:42)
[2018-03-27] MEDS ORDERED: METF-397 PO (13:42)
[2018-03-27] MEDS ORDERED: FURO40TA4 PO (13:42)
[2018-03-27] MEDS ORDERED: CARV6.252 PO (13:42)
[2018-03-27] MEDS ORDERED: OMG1KC PO (13:42)
[2018-03-27] MEDS ORDERED: OMEP20CA12 PO (13:42)
[2018-03-27 14:10] VITALS: BP_SYST 127; BP_SYST 128; BP_DIAS 60; BP_DIAS 62
[2018-03-27] MEDS ORDERED: NS IV 1000 ML 1,000 ML ONE (14:33)
[2018-03-27 14:43] VITALS: BP 127/59
--- NOTE | 2018-03-27 14:46 | Physical Therapy Evaluation ---
PT Evaluation-General Medical Diagnosis Admission Date Mar 27, 2018 at 12:32 Medical Diagnosis: acute CVA/right hemiparesis Onset Date: Mar 27, 2018 Therapy Diagnosis Therapy Diagnosis: generalized weakness/debility Height/Weight Height (Feet): 5 Height (Inches): 7.00 Weight (Pounds): 193 Precautions Precautions/Isolations: Fall Prevention, Standard Precautions Weight Bear Status Right Lower Extremity: Right Full Weight Bearing Left Lower Extremity: Left Full Weight Bearing Referral Physician: Renee Reason for Referral: Evaluation/Treatment Medical History Pertinent Medical History: COPD, Heart Failure Current History EMS secondary to found in bed with impaired speech and right sided weakness Reviewed History: Yes Social History Home: Assisted Living Prior/Core FIM Prior Level of Function Therapy Code Descriptions/Definitions Functional [place] Measure: 0=Not Assessed/NA 4=Minimal Assistance 1=Total Assistance 5=Supervision or Setup 2=Maximal Assistance 6=Modified [place] 3=Moderate Assistance 7=Complete [place] Therapy Quality Codes: 6 Independent with activity with or without an assistive device 5 Patient requires set up or clean up by helper. Patient completes activity by themselves 4 Supervision or touching assist (CGA). [place] provide cues , steadying assist 3 The helper provides less than half the effort to complete the activity 2 The helper provides more than half the effort to complete the activity 1 Dependent. The helper does all the effort to complete an activity 7 Patient refused to complete or attempt activity 9 The patient did not perform the activity before the current illness or injury 88 Not attempted due to Medical conditions or safety concerns Functional Abilities and Goals: Independent: Patient completed the activities by him/herself, with or without an assistive device, with no assistance from a helper. Needed Some Help: Patient needed partial assistance from another person to complete activities. Dependent: A helper completed the activities for the patient. Unknown: Not Applicable: Bed Mobility: 7 Transfers (B,C,W/C) (FIM): 7 Gait: 7 Indoor Mobility (Ambulation): Independent Stairs: Independent Prior Devices Use: None per patient PT Evaluation-Current Subjective Patient agrees to PT. He is able to answer yes and no appropriately to questions. Pain Numeric Pain Scale: 0-No Pain Location: No Pain Reported Objective Patient Orientation: Normal For Age Problem Solving: Fair Attachments: Oxygen, Retana Catheter ROM/Strength ROM Lower Extremities bilateral LE WFL Strength Lower Extremities left knee flexion/extension 4/5; DF/PF 4/5 right knee flexion/extension 3+/5; DF/PF 3+/5 Integumentary/Posture Integumentary refer to nursing notes ( noted right hand and knee contusion) Bladder Incontinence: Retana Cath Posture WFL Neuromuscular (Tone, Coordination, Reflexes) noted right neglect and diminished proprioception/coordination LE and UE Sensory Vision: Functional Hearing: Functional Sensation Right Lower Extremit: Impaired Sensation Left Lower Extremity: Impaired Transfers Therapy Code Descriptions/Definitions Functional [place] Measure: 0=Not Assessed/NA 4=Minimal Assistance 1=Total Assistance 5=Supervision or Setup 2=Maximal Assistance 6=Modified [place] 3=Moderate Assistance 7=Complete [place] Transfers (B, C, W/C) (FIM): 3 Scootin Rollin Supine to/from Sit: 4 Sit to/from Stand: 3 Gait Mode of Locomotion: Walk Anticipated Mode of Locomotion: Walk Gait (FIM): 1 Distance (FIM): 1=up to 49 ft Distance: 3 steps Gait Level of Assist: 3 Gait Persons Needed: 2 Gait Assistive Device: None Comments/Gait Description side stepping to right with PT assist to weight shift left to advance right LE Balance Sitting Static: Fair Sitting Dynamic: Fair Standing Static: Fair Standing Dynamic: Fair Assessment/Needs 78 y.o. male, will benefit from skilled PT to address functional strength and mobility to improve current LOF. Patient demonstrates right side neglect and diminished coordination right LE and UE. From a PT standpoint, patient would benefit from ARU to ensure safe return to [place] at maximum LOF. Rehab Potential: Fair PT Tube Coater Goals Prison Goals PT Prison Goals Time Frame: Apr 12, 2018 Transfers (B,C,W/C) (FIM): 5 Gait (FIM): 5 Gait distance (FIM): 3=150 ft Distance: 200' Gait Level of Assist: 5 Gait Assistive Device: FWW PT Plan Problem List Problem List: Activity Tolerance, Functional Strength, Safety, Balance, Gait, Transfer, Bed Mobility Treatment/Plan Treatment Plan: Continue Plan of Care Treatment Plan: Bed Mobility, Education, Functional Activity Kristine, Functional Strength, Gait, Safety, Therapeutic Exercise, Transfers Treatment Duration: Apr 12, 2018 Frequency: 11 times per week Estimated Hrs Per Day: .5 hour per day Patient and/or Family Agrees t: Yes Discharge Recommendations Therapy D/C Recommendations: Acute Rehab Time/GCodes Time In: 1420 Time Out: 1440 Total Billed Treatment Time: 20 Total Billed Treatment 1 visit EVModC 20 min CRISTIAN SAUCEDA PT Mar 27, 2018 14:46
[2018-03-27] MEDS ORDERED: CATHETER FLUSH 10 ML SYR IV PRN (15:00)
--- NOTE | 2018-03-27 15:15 | NUR ---
UPDATED MED REC WITH ORDERS REPORT FROM [facility] HOWEVER WHEN I CALLED THEM TO CLARIFY THE TIMES OF THE MEDS AND THE DOSE OF THE VITAMIN D THEY STATE THE PATIENT TAKES HIS OWN MEDICATION IN HIS ROOM. I WENT TO SPEAK WITH THE PATIENT ABOUT HIS MEDS BUT HE IS NOT ABLE TO CLARIFY ANY INFORMATION FOR ME AT THIS TIME. I UPDATED THE MED REC WITH THE LIST IT WAS REPORTED BY [facility].
--- NOTE | 2018-03-27 15:34 | ST Dysphagia Evaluation ---
Speech Evaluation-General Medical Diagnosis acute CVA/right hemiparesis Onset Date: Mar 27, 2018 Therapy Diagnosis Therapy Diagnosis: Expressive Aphasia, Oropharyngeal Dysphagia Precautions Precautions: Aspiration Precautions/Isolations: Fall Prevention, Standard Precautions Medical History Pertinent Medical History: COPD, Heart Failure Reviewed History: Yes Speech PLF/Current-Dysphagia Prior Level of Function Patient is a 78 year old male who resides in a local assisted living facility. Patient was independent for most of his daily needs. Subjective Patient was pleasant and cooperative with the evaluation process. Cognitive Status Patient Orientation: Person, Place, Non-Verbal/Aphasic Oral Motor Skills Dentition: Natural Denture Type: Full- Upper Ability to Follow Directions: Good Oral Expression Ability: Moderate Impairment Voice Voice Phonatory-Based Quality: Normal Voice Pitch: Normal Voice Loudness: Mildly Soft/Quiet Face Right sided weakness with droop Oral-Facial Assessment Oral-Facial Dentition: Normal Labial Seal Description: Droops Right Smile: Droops Right Lingual Protrusion: Abnormal Lingual ROM: Abnormal Lingual Strength: Abnormal Gag Reflex Response: Absent Pharynx Velopharyngeal Move.: Weak on Right Volitional Dry Swallow: Yes Dysphagia Evaluation Consistencies Presented: Thin Liquid, Mechanical Soft, Pureed Oral Phase: Oral Residue, Unable to Form Bolus Pharyngeal Phase: Decreased A/P Bolus Transit, Multiple Swallow Attempts Dietary Recommendations: Pureed Liquid Recommendations: Thin Swallowing Precautions: Alternate Liquids/Solids, Liquids from Straw, Small Bites and Sips, Sitting Upright 90 Degrees, Sitting 90 Degrees 30 Post Intake, Right Tongue Sweep Dysphagia Evaluation Summary Patient is a 78 year old male who resides in a local assisted living facility. Patient presented to the ED this am and was noted to have had a CVA sometime during the night. He was found in his bed this am with right sided weakness and unintelligible for speech with exception of a word occasionally. Patient was evaluated this afternoon for swallowing abilities. Patient was presented 1/2 tsp water, small sip from cup and sip from a straw were all completed without difficulty. Patient was presented puree which he was able to take by tsp. size without difficulty. Patient was presented with 1/2 tsp bite of banana. Due to significant decrease in control on the right side and decreased lingual coordination, he was unable to safely chew the banana. He will be on puree with thin liquids. Patient will receive skilled ST for dysphagia and aphasia. Barriers to Learning Patient has expressive aphasia. Speech Short Term Goals Short Term Goals Short Term Goals 1) Patient will tolerate the least restrictive diet level for nutrition and hydration at 90% or greater. 2) Patient will utilize compensatory strategies as trained with 90% or greater. 3) Patient will increase speech intelligibility to the highest functional verbal expression level with 90% or greater in order to effectively be able to express his wants/needs. Speech Shelter Goals Family Engagement Specialist Goals Patient will be able to maintain adequate nutrition/hydration via safe, effective swallow function. Patient will be able to effectively communicate his wants/needs to staff and family. Speech-Plan Patient/Family Goals Patient/Family Goals: Patient will return to the assisted living facility post hospital discharge. Treatment Plan Speech Therapy Treatment Plan: Continue Plan of Care Patient will receive skilled ST services for dysphagia and aphasia. Treatment Duration: Apr 04, 2018 Frequency: 5 times per week Estimated Hrs Per Day: .5 hour per day Rehab Potential: Fair Barriers to Learning: Patient has difficulty with expressing his wants/needs. Pt/Family Agrees to Plan: Yes Safety Risks/Education Teaching Recipient: Patient Teaching Methods: Discussion Response to Teaching: Verbalize Understanding Education Topics Provided: Safety of oral intake. Time Speech Therapy Time In: 15:15 Speech Therapy Time Out: 15:30 Total Billed Time: 15 Billed Treatment Time 1 DEV Amezquita Mar 27, 2018 15:34
--- NOTE | 2018-03-27 15:54 | Occupational Therapy Eval ---
OT Evaluation-General/PLF Medical Diagnosis Admission Date Mar 27, 2018 at 12:32 Medical Diagnosis: acute CVA/right hemiparesis Onset Date: Mar 27, 2018 Therapy Diagnosis Therapy Diagnosis: Weakness Height/Weight Height (Feet): 5 Height (Inches): 7.00 Weight (Pounds): 193 Precautions Precautions/Isolations: Fall Prevention, Standard Precautions Referral Physician: Renee Referral Reason: Activity Tolerance, Self Care, Evaluation/Treatment, Strengthening/ROM Medical History Pertinent Medical History: COPD, Heart Failure Additional Medical History CVA with right sided weakness Current History Pt. resides at [facility] Reviewed History: Yes Social History Home: Assisted Living Current Living Status: Entry Into Home: Level Entry ADL-Prior Level of Function Therapy Code Descriptions/Definitions Functional [place] Measure: 0=Not Assessed/NA 4=Minimal Assistance 1=Total Assistance 5=Supervision or Setup 2=Maximal Assistance 6=Modified [place] 3=Moderate Assistance 7=Complete [place] Therapy Quality Codes: 6 Independent with activity with or without an assistive device 5 Patient requires set up or clean up by helper. Patient completes activity by themselves 4 Supervision or touching assist (CGA). [place] provide cues , steadying assist 3 The helper provides less than half the effort to complete the activity 2 The helper provides more than half the effort to complete the activity 1 Dependent. The helper does all the effort to complete an activity 7 Patient refused to complete or attempt activity 9 The patient did not perform the activity before the current illness or injury 88 Not attempted due to Medical conditions or safety concerns Functional Abilities and Goals: Independent: Patient completed the activities by him/herself, with or without an assistive device, with no assistance from a helper. Needed Some Help: Patient needed partial assistance from another person to complete activities. Dependent: A helper completed the activities for the patient. Unknown: Not Applicable: ADL PLOF Comments Pt. is aphasic at this time. Nods that he was independent with basic self care , but is unable to tell this therapist beyond that. Unsure if pt. utilized equipment. Self Care: Unknown Functional Cognition: Unknown OT Current Status Subjective Pt. is able to nod and attempts to speak. Speech is garbled. Pt. is able to follow cues. Appearance Pt. in bed. Agrees to work with OT. Mental Status/Objective Patient Orientation: Person, Place Attachments: IV, Oxygen Current Hand Dominance: Right Upper Extremity ROM Left UE- WFL Right UE- Pt. demonstrates slight shoulder movement/elbow flexion. Pt. is able to move finger slightly but unable to make a full fist. Upper Extremity Strength Left- WFL Right- 1/5 hand strength. ADL-Treatment Therapy Code Descriptions/Definitions Functional [place] Measure: 0=Not Assessed/NA 4=Minimal Assistance 1=Total Assistance 5=Supervision or Setup 2=Maximal Assistance 6=Modified [place] 3=Moderate Assistance 7=Complete [place] Therapy Quality Codes: 6 Independent with activity with or without an assistive device 5 Patient requires set up or clean up by helper. Patient completes activity by themselves 4 Supervision or touching assist (CGA). [place] provide cues , steadying assist 3 The helper provides less than half the effort to complete the activity 2 The helper provides more than half the effort to complete the activity 1 Dependent. The helper does all the effort to complete an activity 7 Patient refused to complete or attempt activity 9 The patient did not perform the activity before the current illness or injury 88 Not attempted due to Medical conditions or safety concerns Lower Body Dressing (FIM): 2 (Pt. is able to bend knees and bring foot up to attempt doffing socks. However, does not have the sitting balance at that time to do so.) Transfers (B, C, W/C) (FIM): 3 (Mod assist supine-sit. Pt. did well and able to get almost to side of bed. Mod assist to facilitate hips to edge.) Other Treatments Upon evaluation, it is noted that pt. likely has right sided neglect. Does not automatically attend to therapist on right side without cues given to do so. Pt. unable to visualize therapist on right side without turning his head fully toward therapist. Also noted that pt. is unaware of right arm when transferring to side of bed. Pt. states that he can feel OT touch him, but unsure if this is correct. Pt. is able to transfer sit-supine with CGA, and then is able to scoot self up in bed. All needs are met while in bed. Education OT Patient Education: Correct positioning, Modified ADL techniques, Progress toward Goal/Update tx plan, Purpose of tx/functional activities, Reviewed precautions, Rehab process, Transfer techniques Teaching Recipient: Patient Teaching Methods: Demonstration, Discussion Response to Teaching: Verbalize Understanding, Return Demonstration OT Short Term Goals Short Term Goals Time Frame: Apr 10, 2018 Eating(FIM): 4 Grooming(FIM): 4 Bathing(FIM): 3 Upper Body Dressing(FIM): 4 Lower Body Dressing(FIM): 4 Toileting(FIM): 5 Transfers (B,C,W/C) (FIM): 5 Toilet/Commode Transfer(FIM): 5 Shower Transfer(FIM): 4 Additional Short Term Goals: 1-Demonstrate ADL Tasks, 2-Verbalize Understanding , 3-ImproveStrength/Kristine 1=Demonstrate adherence to instructed precautions during ADL tasks. 2=Patient will verbalize/demonstrate understanding of assistive devices/ modifications for ADL. 3=Patient will improve strength/tolerance for activity to enable patient to perform ADL's. OT Vegetable Cook Goals Vegetable Cook Goals Time Frame: Apr 24, 2018 Eating (FIM): 6 Grooming(FIM): 6 Bathing(FIM): 4 Upper Body Dressing(FIM): 5 Lower Body Dressing(FIM): 4 Toileting(FIM): 6 Transfers (B,C,W/C) (FIM): 6 Toilet/Commode Transfer(FIM): 6 Shower Transfer(FIM): 4 Additional Goals: 1-Demonstrate ADL Tasks, 2-Verbalize Understanding, 3- ImproveStrength/Kristine 1=Demonstrate adherence to instructed precautions during ADL tasks. 2=Patient will verbalize/demonstrate understanding of assistive devices/ modifications for ADL. 3=Patient will improve strength/tolerance for activity to enable patient to perform ADL's. OT Education/Plan Problem List/Assessment Assessment: Decreased Activ Tolerance, Decreased Safety Aware, Decreased UE Strength, Dependent Transfers, Impaired Bed Mobility, Impaired Coordination, Impaired Funct Balance, Impaired I ADL's, Impaired Self-Care Skills, Restricted Funct UE ROM, Visual-Perceptual Deficit Discharge Recommendations Plan/Recommendations: Continue POC Therapy D/C Recommendations: Acute Rehab Treatment Plan/Plan of Care Treatment,Training & Education: Yes Patient would benefit from OT for education, treatment and training to promote independence in ADL's, mobility, safety and/or upper extremity function for ADL' s. Plan of Care: ADL Retraining, Functional Mobility, UE Funct Exercise/Act Treatment Duration: Apr 24, 2018 Frequency: 5 times per week Estimated Hrs Per Day: .5 hour per day Agreement: Yes Rehab Potential: Fair Time/GCodes Start Time: 14:35 Stop Time: 14:55 Total Time Billed (hr/min): 20 Billed Treatment Time 1, JESSY BLANC OT Mar 27, 2018 15:54
[2018-03-27 16:00] VITALS: BP 121/60
--- NOTE | 2018-03-27 18:27 | Consultation-Cardiology ---
HPI-Cardiology Cardiology Consultation: Date of Consultation 03/27/18 Time Seen by a Provider: 18:20 Date of Admission Attending Physician Josie Duran DO Admitting Physician Celio Hernandez DO Consulting Physician BIANCA DAVIS MD, MA, FACP, FACC, [facility], CCDS Physician requesting consult: Dr Duran Primary dough machine operator: Dr Rosenberg HPI: Chief Complaint: Reason for consultation: CVA source evaluation HPI: 78 yo man who is admitted to Dr Duran with ac CVA: R-sided weakness and speech impairment. No cp or palp or syncope or shortness of breath. Seems to understand questions and able to respond in Yes and No, but not able to form meaningful sentences Review of Systems-Cardiology Review of Systems Constitutional: No malaise, No weight loss, No weight gain Eyes: No vision change Ears/Nose/Throat: No ear discharge, No nasal drainage, No recent hearing loss Respiratory: As described under HPI Cardiovascular: As described under HPI Gastrointestinal: No diarrhea, No difficulty swallowing, No vomiting Genitourinary: No dysuria, No hematuria, No urine frequency changes Musculoskeletal: No back pain, No joint pain Skin: No rash, No ulcerations Psychiatric/Neurological: As described under HPI Hematologic: No bleeding abnormalities NDE-Zgwqkq-Przbil Hx Patient Social History Alcohol Use: Rarely Uses Recreational Drug Use: No Smoking Status: Current Everyday Smoker Type Used: Pipe Recent Foreign Travel: No Recent Infectious Disease Expo: No Physical Abuse Screen: No Sexual Abuse: No Immunizations Up To Date Date of Pneumonia Vaccine: Dec 20, 2013 Date of Influenza Vaccine: Dec 16, 2017 Past Medical History PMH As described under Assessment. Family Medical History Family Medical History: No reported fam h/o early CAD or SCD Allergies and Home Medications Allergies Coded Allergies: No Known Drug Allergies (Unverified , 03/27/11) Home Medications Aspirin 81 Mg Tablet.dr, 81 MG PO DAILY, (Reported) Atorvastatin Calcium 80 Mg Tablet, 80 MG PO DAILY, (Reported) Carvedilol 6.25 Mg Tablet, 6.25 MG PO BID, (Reported) Cholecalciferol (Vitamin D3) 2,000 Unit Capsule, 2,000 UNIT PO DAILY, (Reported) Digoxin 125 Mcg Tablet, 125 MCG PO DAILY, (Reported) Enalapril Maleate 2.5 Mg Tablet, 2.5 MG PO DAILY, (Reported) Furosemide 40 Mg Tablet, 40 MG PO DAILY, (Reported) Glimepiride 4 Mg Tablet, 4 MG PO DAILY, (Reported) Metformin HCl 500 Mg Tablet, 500 MG PO BID, (Reported) Methimazole 5 Mg Tablet, 5 MG PO DAILY, (Reported) Ophir 3 Polyunsat Fatty Acids 1,000 Mg Cap, 1,000 MG PO TID, (Reported) Omeprazole 20 Mg Capsule.dr, 20 MG PO DAILY, (Reported) Ticagrelor 90 Mg Tablet, 90 MG PO BID, (Reported) Patient Home Medication List Home Medication List Reviewed: Yes Physical Exam-Cardiology Physical Exam Vital Signs/I&O 03/27/18 03/27/18 03/27/18 03/27/18 10:31 11:13 12:50 13:10 Temp 98.0 98.0 Pulse 86 69 69 Resp 16 17 17 B/P (MAP) 143/105 (118) 141/76 141/76 (97) Pulse Ox 98 100 100 98 O2 Delivery Room Air Nasal Cannula O2 Flow Rate 2.00 03/27/18 03/27/18 03/27/18 03/27/18 13:10 14:10 14:10 14:43 Pulse 65 65 66 70 Resp 18 18 18 22 B/P (MAP) 128/62 128/62 127/60 127/59 (81) Pulse Ox 99 99 98 O2 Delivery Nasal Cannula O2 Flow Rate 2.00 03/27/18 03/27/18 14:43 16:00 Temp 98.0 Pulse 70 69 Resp 22 16 B/P (MAP) 127/59 121/60 (80) Pulse Ox 98 O2 Delivery Nasal Cannula O2 Flow Rate 2.00 Capillary Refill : Less Than 3 Seconds Constitutional: well-developed, well-nourished, other (seems alert and oriented , but speech is impaired and cannot provide detailed answers to questions because of dysphasia) HEENT: PERRL, EOMI; No xanthelasmas are seen Neck: carotid pulses are 2 + bilaterally, with good upstrokes Respiratory: No accessory muscle use; other (good bilat air entry) Cardiovascular: regular rate-rhythm, S1 and S2, systolic murmur (soft RENATO at card base) Gastrointestinal: No tender; soft; No guarding Extremities: No clubbing, No cyanosis, No significant edema Neurologic/Psychiatric: other (R-sided weakness, effacement of furrows on R fore head, dysphasia) Skin: No rash on exposed areas, No ulcerations on exposed areas Data Review Labs Laboratory Tests 03/27/18 10:00: White Blood Count 19.0H, Red Blood Count 4.97, Hemoglobin 14.9, Hematocrit 43, Mean Corpuscular Volume 87, Mean Corpuscular Hemoglobin 30, Mean Corpuscular Hemoglobin Concent 35, Red Cell Distribution Width 15.7H, Platelet Count 267, Mean Platelet Volume 12.5H, Neutrophils (%) (Auto) 82H, Lymphocytes (%) (Auto) 11L, Monocytes (%) (Auto) 6, Eosinophils (%) (Auto) 1, Basophils (%) (Auto) 0, Neutrophils # (Auto) 15.6H, Lymphocytes # (Auto) 2.0, Monocytes # (Auto) 1.2H, Eosinophils # (Auto) 0.2, Basophils # (Auto) 0.0, Neutrophils % (Manual) 75, Lymphocytes % (Manual) 12, Monocytes % (Manual) 6, Eosinophils % (Manual) 4, Basophils % (Manual) 0, Band Neutrophils 3, Anisocytosis SLIGHT, Sodium Level 137, Potassium Level 4.1, Chloride Level 98, Carbon Dioxide Level 23, Anion Gap 16H, Blood Urea Nitrogen 25H, Creatinine 1.43H, Estimat Glomerular Filtration Rate 48, BUN/Creatinine Ratio 17, Glucose Level 175H, Calcium Level 9.8, Corrected Calcium 9.6, Total Bilirubin 0.4, Aspartate Amino Transf (AST/SGOT) 21 , Alanine Aminotransferase (ALT/SGPT) 23, Alkaline Phosphatase 47, Total Protein 7.3, Albumin 4.3 03/27/18 11:45: Urine Color YELLOW, Urine Clarity CLEAR, Urine pH 6, Urine Specific [place] 1.020, Urine Protein 2+H, Urine Glucose (UA) NEGATIVE, Urine Ketones 1+H, Urine Nitrite NEGATIVE, Urine Bilirubin NEGATIVE, Urine Urobilinogen 1, Urine Leukocyte Esterase 1+H, Urine RBC (Auto) NEGATIVE, Urine RBC NONE, Urine WBC RARE, Urine Squamous Epithelial Cells 0-2, Urine Crystals NONE, Urine Bacteria TRACE, Urine Casts PRESENT, Urine Hyaline Casts 0-2H, Urine Mucus SMALLH, Urine Culture Indicated NO Laboratory Tests 03/27/18 10:00 A/P-Cardiology Assessment/Admission Diagnosis 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 Total occlusion of the mid proper circumflex artery, small artery receiving collateral from left anterior descending. 40-50 percent mid LAD stenosis. Nonobstructive disease. EF 30 percent, he was referred to had 4 stents overlapping in the right coronary artery done in April 2015, returned in October 2015 and had intervention to the posterior lateral branch, had a cardiac catheterization done at in August 2017, apparently had patent stents in the right coronary artery and occluded obtuse marginal branch Congestive heart failure, chronic compensated LV dysfunction; apparently, had an echocardiogram done at and reported to have ejection fraction 35 percent Status post ICD implanted by Dr. Sanjay Raphael, [employer] (h/o sudden cardiac and ventricular tachycardia) managed and followed at Paroxysmal atrial fibrillation status post cardioversion, not on oral anticoagulation, followed and managed by Dr. Raphael. Dr Rosenberg's office note of Dec 2018 indicates that patient has been on amiodarone Carotid artery stenosis status post left CEA in 2011. Carotid u/s at Dr Rosenberg's in Dec 2017 showed 1-39% bilat ICA stenoses COPD, still smoking one cigar a day Hypertension Hyperlipidemia Diabetes mellitus-managed by primary care physician Discussion and Recomendations * Given CVA that is likely thromboembolic from PAF (given h/o PAF), we recommend apixaban for stroke prophylaxis * Continue ASA because of CAD * Monitor labs * I spoke with him and discussed the above recs. He understands and concurs Clinical Quality Measures DVT/VTE Risk/Contraindication: Risk Factor Score Per Nursin RFS Level Per Nursing on Admit: 4+=Very High Stroke: Date of last known well: Mar 26, 2018 BIANCA DAVIS MD FACP FAC CCDS Mar 27, 2018 18:27
[2018-03-27] MEDS: NS IV 1000 ML 1,000 ML IV SCH (18:45)
[2018-03-27] MEDS ORDERED: AMIODARONE 200 MG (CORDARONE) TAB PO NR (19:00)
[2018-03-27 19:40] VITALS: BP 124/60
[2018-03-27] MEDS ORDERED: RX-TRAMADOL 50 MG (ULTRAM) TAB PPK#4 PO PRN (20:15)
[2018-03-27] MEDS ORDERED: MELATONIN 3 MG TABLET PO PRN (20:15)
[2018-03-27] MEDS ORDERED: HYDROcodone/APAP 5 MG/325 MG (LORTAB) TAB PO PRN (20:15)
[2018-03-27] MEDS ORDERED: diphenhydrAMINE 25 MG TAB (BENADRYL) PO PRN (20:15)
[2018-03-27] MEDS ORDERED: LOPERAMIDE 2 MG (IMODIUM) CAP PO PRN (20:15)
[2018-03-27] MEDS ORDERED: fentaNYL INJECTION 100 MCG/2 ML AMP IVP PRN (20:15)
[2018-03-27] MEDS ORDERED: CALCIUM CARBONATE 500 MG (TUMS) TAB.CHEW PO PRN (20:15)
[2018-03-27] MEDS ORDERED: ONDANSETRON 4 MG/2 ML (SDV) Z0FRAN IVP PRN (20:15)
[2018-03-27] MEDS ORDERED: ALPRAZolam 0.25 MG (XANAX) TAB PO PRN (20:15)
[2018-03-27] MEDS ORDERED: ACETAMINOPHEN 500 MG TAB (TYLENOL) PO PRN (20:15)
[2018-03-27] MEDS ORDERED: DOCUSATE SODIUM 100 MG (COLACE) CAP PO PRN (20:15)
[2018-03-27] MEDS ORDERED: APIXABAN 5 MG (ELIQUIS) TABLET PO NR (20:30)
[2018-03-27] MEDS ORDERED: ASPIRIN 81 MG CHEW (CHILDREN'S ASA) PO NR (20:30)
[2018-03-27] MEDS ORDERED: NON-FORMULARY MEDICATION 1 EA EA (Metformin HCl 500 MG) PO SCH (21:00)
[2018-03-27] MEDS ORDERED: TICAGRELOR 90 MG TABLET (BRILINTA) PO SCH (21:00)
[2018-03-27] MEDS ORDERED: CLOPIDOGREL 75 MG (PLAVIX) TABLET PO ONE (21:45)
[2018-03-27] MEDS: inSUlin ASPART (NovoLOG) 1 UNIT/0.01 ML (CHARGE PER UNIT) SC SCH (21:54)
--- NOTE | 2018-03-27 22:00 | NUR ---
2009-SPOKE WITH DR. SANTOS ABOUT RESTARTING [facility] MED[facility] AND INFORMED HER THAT DR. DAVIS PUT IN ORDERS FOR ASPIRIN AND EILIQUIS LONG SHE WAS OKAY WITH IT. TELEPHONE ORDERS RECEIVED THAT SHE WAS OKAY WITH ASPIRIN AND ELIQUIS, DYS1 DIET WITH THIN LIQUIDS ALSO ORDERED. DR. SANTOS STATED SHE WOULD RESTART [facility] MEDS. 2014- TELEPHONE ORDERS RECEIVED FROM DR. SANTOS TO STOP METFORMIN. 2032- RECEIVED A CALL FROM PHARMACY, THEY WANTED ME TO DOUBLE CHECK WITH DR. SANTOS BC PT ON ELIQUIS AND ASPIRIN AND DR. SANTOS HAD RESTARTED HIS BRILINTA ALSO. 2037- SPOKE WITH DR. SANTOS, TELEPHONE ORDERS RECEIVED TO CALL DR. DAVIS AND ASK HIS OPINION. 2041- SPOKE WITH DR. DAVIS. TELEPHONE ORDERS RECEIVED TO DC ASPIRIN AND BRILINTA, CONTINUE ELIQUIS 5MG PO 1X DOSE NOW, ELIQUIS 5MG PO BID, AND START PLAVIX 75MG PO 1X DOSE NOW AND PLAVIX 75MG PO DAILY.
[2018-03-27] MEDS ORDERED: AMIODARONE 200 MG (CORDARONE) TAB PO SCH (23:00)
[2018-03-27] MEDS: CARVEDILOL 6.25 MG (COREG) TAB PO SCH (23:06)
[2018-03-27] MEDS: APIXABAN 5 MG (ELIQUIS) TABLET PO SCH (23:07)
[2018-03-27] MEDS: OMEGA 3 (FISH OIL) 1000 MG CAP PO SCH (23:07)
[2018-03-28 00:01] VITALS: BP 121/57
[2018-03-28 04:00] VITALS: BP 114/56
[2018-03-28] MEDS: NS IV 1000 ML 1,000 ML IV SCH (04:00)
[2018-03-28] MEDS: inSUlin ASPART (NovoLOG) 1 UNIT/0.01 ML (CHARGE PER UNIT) SC SCH (05:19)
[2018-03-28] MEDS ORDERED: GLIMEPIRIDE 4 MG (AMARYL) TAB PO SCH (06:30)
[2018-03-28 06:41] LABS: BASOPHILS % (AUTO) 0 % (0-10); EOSINOPHILS # (AUTO) 0.1 10^3/uL (0.0-0.3); EOSINOPHILS % (AUTO) 1 % (0-10); HEMATOCRIT 38 % (40-54); HEMOGLOBIN 12.6 G/DL (13.3-17.7); LYMPHOCYTES % (AUTO) 16 % (12-44); MEAN CORPUSCULAR HEMOGLOBIN 29 PG (25-34); MEAN CORPUSCULAR HGB CONC 33 G/DL (32-36); MEAN CORPUSCULAR VOLUME 88 FL (80-99); MEAN PLATELET VOLUME 11.5 FL (7.4-10.4); MONOCYTES # (AUTO) 1.4 X 10^3 (0.0-1.0); MONOCYTES % (AUTO) 11 % (0-12); NEUTROPHILS # (AUTO) 8.9 X 10^3 (1.8-7.8); NEUTROPHILS % (AUTO) 72 % (42-75); PLATELET COUNT 184 10^3/uL (130-400); RED BLOOD COUNT 4.28 10^6/uL (4.35-5.85); RED CELL DISTRIBUTION WIDTH 15.6 % (10.0-14.5); WHITE BLOOD COUNT 12.4 10^3/uL (4.3-11.0)
[2018-03-28] MEDS ORDERED: PANTOPRAZOLE 20 MG TABLET (PROTONIX) PO SCH (07:00)
[2018-03-28] MEDS ORDERED: metFORMIN 500 MG (GLUCOPHAGE) TAB PO SCH (07:00)
[2018-03-28 07:13] LABS: ALANINE AMINOTRANSFERASE 19 U/L (0-55); ALBUMIN 3.6 GM/DL (3.2-4.5); ALKALINE PHOSPHATASE 42 U/L (40-136); BILIRUBIN,TOTAL 0.4 MG/DL (0.1-1.0); BUN/CREATININE RATIO 18; CALCIUM 8.9 MG/DL (8.5-10.1); CARBON DIOXIDE 20 MMOL/L (21-32); CHLORIDE 107 MMOL/L (98-107); CHOLESTEROL 115 MG/DL (< 200); CREATININE SERUM 1.08 MG/DL (0.60-1.30); GFR ESTIMATED > 60; GLUCOSE 129 MG/DL (70-105); HDL CHOLESTEROL 43 MG/DL (40-60); POTASSIUM 3.7 MMOL/L (3.6-5.0); SODIUM 138 MMOL/L (135-145); TRIGLYCERIDES 139 MG/DL (<150); VLDL CHOLESTEROL 28 MG/DL (5-40)
[2018-03-28 08:00] VITALS: BP 125/59
--- NOTE | 2018-03-28 08:28 | Cardiology Progress Note ---
Subjective Date Seen by Provider: Mar 28, 2018 Time Seen by Provider: 08:23 Subjective/Events-last exam patient is laying down in bed, having significant weakness on the right side and aphagia. Review of Systems General: No Chills, No Night Sweats; Fatigue, Malaise; No Appetite, No Other HEENT: No Head Aches, No Visual Changes, No Eye Pain, No Ear Pain, No Dysphasia , No Sinus Congestion, No Post Nasal Drip, No Sore Throat, No Other Pulmonary: No Dyspnea, No Cough, No Pleuritic Chest Pain, No Other Cardiovascular: No: Chest Pain, Palpitations, Orthopnea, Paroxysmal Noc. Dyspnea, Edema, Lt Headedness, Other Objective-Cardiology Exam Last Set of Vital Signs Vital Signs 03/28/18 03/28/18 04:00 07:12 Temp 97.7 Pulse 62 Resp 20 B/P (MAP) 114/56 (75) Pulse Ox 96 O2 Delivery Nasal Cannula O2 Flow Rate 2.00 Capillary Refill : Less Than 3 Seconds I&O Intake and Output 03/28/18 00:00 Intake Total 240 ml Output Total 550 ml Balance -310 ml Intake Oral 240 ml Output Urine Total 550 ml Daily Weight Change No No General: Alert, Cooperative HEENT: Atraumatic, PERRLA Neck: Supple, No JVD, No Thyromegaly Lungs: Clear to Auscultation, Normal Air Movement Heart: Regular Rate, Normal S1, Normal S2, Other (systolic murmur at the left sternal border) Abdomen: Normal Bowel Sounds, Soft, No Tenderness, No Hepatosplenomegaly, No Masses Extremities: No Clubbing, No Cyanosis, No Edema, Normal Pulses, No Tenderness/ Swelling Skin: No Rashes, No Breakdown, No Significant Lesion Neuro: Other (right hemiplegia and aphasia) Psych/Mental Status: Mood NL Results Lab Laboratory Tests 03/27/18 10:00 03/28/18 06:31 A/P-Cardiology Admission Diagnosis Acute CVA Paroxysmal atrial fibrillation Coronary artery disease Congestive heart failure, chronic compensated left ventricular systolic dysfunction, ischemic cardiomyopathy Assessment/Plan 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 cardiology, Dr Raphael and maintained on amiodarone Coronary artery disease, cardiac catheterization done on April 13, 2015 revealed total occlusion of large dominant right coronary artery with collateral filling the distal right from the left side. Total occlusion of the mid proper circumflex artery, small artery receiving collateral from left anterior descending. 40-50 percent mid LAD stenosis. Nonobstructive disease. EF 30 percent, he was referred to had 4 stents overlapping in the right coronary artery done in April 2015, returned in October 2015 and had intervention to the posterior lateral branch, had a cardiac catheterization done at in June 2017 reported as patent stent in the right coronary artery and right posterior descending artery. Chronically occluded obtuse marginal branch that did not change compared to the previous study. Conservative management was recommended Congestive heart failure, chronic compensated LV dysfunction; had an echocardiogram done at and reported to have ejection fraction 35 percent Status post ICD implanted by Dr. Sanjay Raphael, [employer] (h/o sudden cardiac and ventricular tachycardia) managed and followed at Carotid artery stenosis status post left CEA in 2011. Carotid u/s at Dr Rosenberg's in Dec 2017 showed 1-39% bilat ICA stenoses COPD, still smoking one cigar a day Hypertension Hyperlipidemia Diabetes mellitus-managed by primary care physician Clinical Quality Measures DVT/VTE Risk/Contraindication: Risk Factor Score Per Nursin RFS Level Per Nursing on Admit: 4+=Very High Stroke: Date of last known well: Mar 26, 2018 TAYLOR ROSENBERG MD Mar 28, 2018 08:28
[2018-03-28] MEDS ORDERED: VITAMIN D3 1,000 UNITS (CHOLECALCIFEROL) TABLET PO SCH (09:00)
[2018-03-28] MEDS ORDERED: OMEPRAZOLE 20 MG (PriLOSEC) CAP NON-FORMULARY PO SCH (09:00)
[2018-03-28] MEDS ORDERED: METHIMAZOLE TABLET 5 MG TABLET PO SCH (09:00)
[2018-03-28] MEDS ORDERED: ASPIRIN E.C. 81 MG (ECOTRIN) TAB PO SCH (09:00)
[2018-03-28] MEDS ORDERED: NON-FORMULARY MEDICATION 1 EA EA (Cholecalciferol (Vitamin D3) (Vitamin D) 2,000 UNIT) PO SCH (09:00)
[2018-03-28] MEDS ORDERED: NON-FORMULARY MEDICATION 1 EA EA (Glimepiride 4 MG) PO SCH (09:00)
[2018-03-28] MEDS ORDERED: DIGOXIN 0.125 MG (LANOXIN) TAB PO SCH (09:00)
[2018-03-28] MEDS ORDERED: METHIMAZOLE 5 MG PO SCH (09:00)
[2018-03-28] MEDS ORDERED: ASPIRIN 81 MG CHEW (CHILDREN'S ASA) PO SCH (09:00)
[2018-03-28] MEDS ORDERED: FUROSEMIDE 40 MG (LASIX) TAB PO SCH (09:00)
[2018-03-28] MEDS ORDERED: ENALAPRIL 2.5 MG (VASOTEC) TAB PO SCH (09:00)
[2018-03-28] MEDS ORDERED: NON-FORMULARY MEDICATION 1 EA EA (Atorvastatin Calcium (Lipitor) 80 MG) PO SCH (09:00)
[2018-03-28] MEDS ORDERED: AMIODARONE 200 MG (CORDARONE) TAB PO SCH (09:00)
[2018-03-28] MEDS ORDERED: CLOPIDOGREL 75 MG (PLAVIX) TABLET PO SCH (09:00)
--- NOTE | 2018-03-28 09:27 | Physical Therapy Daily Note ---
PT Daily Note-Current Subjective Patient agrees to PT. Pain Numeric Pain Scale: 0-No Pain Location: No Pain Reported Mental Status Patient Orientation: Normal For Age Attachments: Oxygen, Retana Catheter, IV Transfers Therapy Code Descriptions/Definitions Functional [place] Measure: 0=Not Assessed/NA 4=Minimal Assistance 1=Total Assistance 5=Supervision or Setup 2=Maximal Assistance 6=Modified [place] 3=Moderate Assistance 7=Complete [place] Therapy Quality Codes: 6 Independent with activity with or without an assistive device 5 Patient requires set up or clean up by helper. Patient completes activity by themselves 4 Supervision or touching assist (CGA). [place] provide cues , steadying assist 3 The helper provides less than half the effort to complete the activity 2 The helper provides more than half the effort to complete the activity 1 Dependent. The helper does all the effort to complete an activity 7 Patient refused to complete or attempt activity 9 The patient did not perform the activity before the current illness or injury 88 Not attempted due to Medical conditions or safety concerns Transfers (B, C, W/C) (FIM): 2 Scootin Rollin Supine to/from Sit: 2 Sit to/from Stand: 3 Bed to/from Chair: 3 listing to right with minimal right UE mobility Weight Bearing Right Lower Extremity: Right Full Weight Bearing Left Lower Extremity: Left Full Weight Bearing Gait Training Gait (FIM): 1 Distance (FIM): 1=up to 49 ft Distance: 25' Gait Level of Assist: 3 Gait Persons Needed: 2 Gait Assistive Device: FWW Patient unable to use right UE for FWW use. PT will utilize hemiwalker. Unsteady gait sequence Exercises Supine Ex: Ankle pumps, Quad Set, Heel Slides, Straight leg raise, Hip abd/add Supine Reps: 15 (AROM) Assessment PT informed after treatment patient will transfer to ARU. Patient has noted decrease right UE movement from yesterday's evaluation. PT Short Term Goals Short Term Goals Transfers (B,C,W/C) (FIM): 5 PT Nursing Home Goals Stock Receiver Goals PT Stock Receiver Goals Time Frame: Apr 12, 2018 Transfers (B,C,W/C) (FIM): 5 Gait (FIM): 5 Gait distance (FIM): 3=150 ft Distance: 200' Gait Level of Assist: 5 Gait Assistive Device: FWW PT Plan Treatment/Plan Treatment Plan: Continue Plan of Care Treatment Plan: Bed Mobility, Education, Functional Activity Kristine, Functional Strength, Gait, Safety, Therapeutic Exercise, Transfers Treatment Duration: Apr 12, 2018 Frequency: 11 times per week Estimated Hrs Per Day: .5 hour per day Patient and/or Family Agrees t: Yes Time/GCodes Time In: 836 Time Out: 900 Total Billed Treatment Time: 24 Total Billed Treatment 1 visit EX 12 min GT 12 min CRISTIAN SAUCEDA PT Mar 28, 2018 09:27
[2018-03-28] MEDS: APIXABAN 5 MG (ELIQUIS) TABLET PO SCH (09:35)
[2018-03-28] MEDS: OMEGA 3 (FISH OIL) 1000 MG CAP PO SCH (09:35)
[2018-03-28] MEDS: CARVEDILOL 6.25 MG (COREG) TAB PO SCH (09:36)
--- NOTE | 2018-03-28 10:26 | Short Stay Summary-Hospitalist ---
History of Present Illness HPI/Chief Complaint CC: Subacute CVA HPI: This is a 78-year-old white male with a past medical history of CAD and pacemaker placement in the past who presented to the ER by his family with altered mental status and right-sided weakness. He was last known to be well the night before and given outside of the TPA window he was deemed not a candidate to receive TPA. Patient remains weak on the right side with dysphasia and expressive aphasia along with inability to mobilize. At this current time patient has difficulty answering my questions and finding words. He will be sent down to inpatient rehabilitation to start on aggressive therapies to resolve catastrophic deficits on the right side. Source: patient Exam Limitations: clinical condition Date Seen 03/28/18 Time Seen by a Provider: 09:30 Attending Physician Josie Duran DO PCP Celio Hernandez DO Referring Physician Date of Admission Mar 27, 2018 at 12:32 Home Medications & Allergies Home Medications Reviewed patient Home Medication Reconciliation performed by pharmacy medication reconciliations medical equipment repair technician and/or nursing. Patients Allergies have been reviewed. 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) Recent Infectious Disease Expo: No Immunizations Up To Date Date of Pneumonia Vaccine: Dec 20, 2013 Date of Influenza Vaccine: Dec 16, 2017 Past Medical History Surgeries: Cardiac, Defibrillator Respiratory: COPD, Pneumonia Cardiac: Cardiomyopathy, Coronary Artery Disease, High Cholesterol, Hypertension Reproductive: No Cancer: Skin History of Blood Disorders: Yes Review of Systems ROS-Unable to Obtain: Unavailable to ascertain Constitutional: other (Unable to answer) Physical Exam Physical Exam Vital Signs Vital Signs - First Documented 03/27/18 10:31 Temp 98.0 Pulse 86 Resp 16 B/P (MAP) 143/105 (118) Pulse Ox 98 O2 Delivery Room Air Capillary Refill : Less Than 3 Seconds Height, Weight, BMI Height: 5'7.00" Weight: 185lbs. 8.0oz. 84.592798my; 30.2 BMI Method:Estimated General Appearance: No Apparent Distress, WD/WN, Chronically ill Eyes: Bilateral Eye Normal Inspection, Bilateral Eye PERRL HEENT: PERRL/EOMI, Normal ENT Inspection, Pharynx Normal, Other (Left-sided weakness) Neck: Full Range of Motion, Normal Inspection, Non Tender, Supple, Carotid Bruit Respiratory: Chest Non Tender, Lungs Clear, Normal Breath Sounds, No Accessory Muscle Use, No Respiratory Distress Cardiovascular: Regular Rate, Rhythm, No Edema, No Gallop, No JVD, No Murmur, Normal Peripheral Pulses Gastrointestinal: Normal Bowel Sounds, No Organomegaly, No Pulsatile Mass, Non Tender, Soft Back: Normal Inspection, No CVA Tenderness, No Vertebral Tenderness Extremity: Normal Capillary Refill, Normal Inspection, Normal Range of Motion, Non Tender, No Calf Tenderness, No Pedal Edema Neurologic/Psychiatric: Alert, Oriented x3, Motor Weakness (Right-sided weakness) Skin: Normal Color, Warm/Dry Lymphatic: No Adenopathy Results Results/Procedures Labs Laboratory Tests 03/27/18 10:00 03/28/18 06:31 Patient resulted labs reviewed. Short Stay Diagnosis Discharge Diagnosis-Short Stay Admission Diagnosis Assessment: Catastrophic CVA with right-sided weakness Expressive aphasia CAD Cardiomyopathy Permanent pacemaker status Hypertension line chronic renal insufficiency Diabetes mellitus COPD Recent smoking cessation Plan: Appreciate cardiology recommendations Inpatient rehabilitation today to start aggressive therapies Final Discharge Diagnosis Assessment: Catastrophic CVA with right-sided weakness Expressive aphasia CAD Cardiomyopathy Permanent pacemaker status Hypertension line chronic renal insufficiency Diabetes mellitus COPD Recent smoking cessation Plan: Appreciate cardiology recommendations Inpatient rehabilitation today to start aggressive therapies Conclusion Plan Assessment: Catastrophic CVA with right-sided weakness Expressive aphasia CAD Cardiomyopathy Permanent pacemaker status Hypertension line chronic renal insufficiency Diabetes mellitus COPD Recent smoking cessation Plan: Appreciate cardiology recommendations Inpatient rehabilitation today to start aggressive therapies Diagnosis/Problems Diagnosis/Problems (1) Cerebrovascular accident (CVA) with involvement of right side of body Status: Acute (2) Expressive aphasia Status: Acute (3) Aphasia (4) Pacemaker Status: Chronic Clinical Quality Measures DVT/VTE Risk/Contraindication: Risk Factor Score Per Nursin RFS Level Per Nursing on Admit: 4+=Very High Stroke: Date of last known well: Mar 26, 2018 JOSIE DURAN DO Mar 28, 2018 10:26
--- NOTE | 2018-03-28 12:46 | Diagnostic Imaging Report ---
PROCEDURE: US carotid duplex, bilateral. TECHNIQUE: Multiple real-time grayscale images were obtained over the carotid arteries in various projections, bilaterally. Additional spectral analysis and color Doppler duplex images were also obtained. INDICATION: Acute CVA. Velocities are normal bilaterally. No significant velocity elevation or stenosis is identified. The left vertebral artery shows antegrade flow. The right vertebral artery was not visualized. IMPRESSION: No evidence of a hemodynamically significant stenosis. Parameters based on the consensus panel Tabor-Scale and Doppler ultrasound criteria published January 2003, Radiology, Volume 229. DOPPLER (peak systolic velocity M/S Right Left CCA 1.21 .76 ICA Proximal 1.13 1.14 ICA Mid .73 .94 ICA Distal 1.10 .94 RATIO .93 1.49 ECA 1.64 1.46 VERT NOT SEEN .79 Dictated by: Dictated on workstation # [id number]
[2018-03-28] MEDS ORDERED: ATORVASTATIN 80 MG (LIPITOR) TABLET PO SCH (21:00)
== END 2018-03-28 10:30 | DRG 65 ==
LOC: ER 10:29 → 4TH 12:32
PROVIDERS: ADMIT Internal Medicine; ATTEND Internal Medicine
DX: I63.89 Other cerebral infarction (principal); G81.91 Hemiplegia, unspecified affecting right dominant side; R47.02 Dysphasia; I13.0 Hypertensive heart and chronic kidney disease with heart failure and stage 1 through stage 4 chronic kidney disease, or unspecified chronic kidney disease; I50.22 Chronic systolic (congestive) heart failure; N18.9 Chronic kidney disease, unspecified; I25.10 Atherosclerotic heart disease of native coronary artery without angina pectoris; I25.5 Ischemic cardiomyopathy; R29.810 Facial weakness; I48.0 Paroxysmal atrial fibrillation; R29.716 NIHSS score 16; F17.290 Nicotine dependence, other tobacco product, uncomplicated; J44.9 Chronic obstructive pulmonary disease, unspecified; I65.23 Occlusion and stenosis of bilateral carotid arteries; E78.5 Hyperlipidemia, unspecified; E11.9 Type 2 diabetes mellitus without complications; Z95.5 Presence of coronary angioplasty implant and graft; Z79.82 Long term (current) use of aspirin; Z95.810 Presence of automatic (implantable) cardiac defibrillator
CPT/HCPCS: 36415; 51702; 70450; 80053; 80061; 81000; 82962; 85007; 85025; 85027; 93005; 93880

== ENCOUNTER 2018-03-28 09:57 | Inpatient (IN) | payer MEDICARE, MEDICAID ==
[~2018-03-28] VITALS: Ht 170.2 cm; Wt 86.2 kg
[~2018-03-28 09:57] MED LIST changes: +ATOR80TA64 PO; +DIGO125T PO; +FURO40TA4 PO; +OMEP20CA12 PO; +OMG1KC PO; +TICA90TA PO
--- NOTE | 2018-03-28 10:45 | NUR ---
Pt admitted to room 233-1, with an admitting diagnosis of S/P CVA w Rt hemiparesis, on 03/28/18 from 4th floor via w/c, accompanied by PT. HARI MAIN introduced to surroundings, call light, bed controls, phone, TV, temperature control, lights, meal times, smoking policy, visitor policy, side rail policy, bathrooms and showers. Patient Rights given to patient in the handbook. HARI MAIN acknowledges understanding that [facility] is not responsible for the loss or damage to any personal effects or valuables that are kept in the patients posession during their hospitalization. The following Patient Care Plans were discussed with the pt: Discharge Planning, Self care deficit, potential for injury/fall, Impaired mobility. HARI MAIN acknowledges understanding of Interdisciplinary Patient Education. Patient and/or family were informed about the Rapid Response Team and its purpose. Patient received Patient Rights Booklet, which includes Privacy Act Statement and Data Collection Information Summary.
[2018-03-28 10:50] VITALS: BP 127/70
[2018-03-28] MEDS ORDERED: CATHETER FLUSH 10 ML SYR IV PRN (11:00)
[2018-03-28] MEDS ORDERED: ACETAMINOPHEN 500 MG TAB (TYLENOL) PO PRN (11:00)
[2018-03-28] MEDS ORDERED: diphenhydrAMINE 25 MG TAB (BENADRYL) PO PRN (11:00)
[2018-03-28] MEDS ORDERED: ALPRAZolam 0.25 MG (XANAX) TAB PO PRN (11:00)
[2018-03-28] MEDS ORDERED: HYDROcodone/APAP 5 MG/325 MG (LORTAB) TAB PO PRN (11:00)
[2018-03-28] MEDS ORDERED: ONDANSETRON 4 MG/2 ML (SDV) Z0FRAN IVP PRN (11:00)
[2018-03-28] MEDS ORDERED: DOCUSATE SODIUM 100 MG (COLACE) CAP PO PRN (11:00)
[2018-03-28] MEDS ORDERED: fentaNYL INJECTION 100 MCG/2 ML AMP IVP PRN (11:00)
[2018-03-28] MEDS ORDERED: CALCIUM CARBONATE 500 MG (TUMS) TAB.CHEW PO PRN (11:00)
[2018-03-28] MEDS ORDERED: LOPERAMIDE 2 MG (IMODIUM) CAP PO PRN (11:00)
[2018-03-28] MEDS ORDERED: MELATONIN 3 MG TABLET PO PRN (11:00)
--- NOTE | 2018-03-28 12:04 | NUR ---
REVIEWED MEDICATIONS THEY WERE REPORTED UPON ADMISSION TO 4TH FLOOR.
[2018-03-28] MEDS: inSUlin ASPART (NovoLOG) 1 UNIT/0.01 ML (CHARGE PER UNIT) SC SCH ×3 (12:29→21:41)
--- NOTE | 2018-03-28 12:35 | NUR ---
Pts meds not reviewed by Pharmacy yet, unable to obtain
--- NOTE | 2018-03-28 12:49 | NUR ---
Pts brother & sister in law were in to visit, they both state that pt seems better today than previously, that his speech has improved, confirmed Emergency contact #'s. Pt resting in bed now, made pt Auto tray so that he doesn't miss a meal d/t speech impairments.
--- NOTE | 2018-03-28 12:53 | Physical Therapy Evaluation ---
PT Evaluation-General Medical Diagnosis Admission Date Mar 28, 2018 at 10:30 Medical Diagnosis: CVA/right hemiparesis Onset Date: Mar 27, 2018 Therapy Diagnosis Therapy Diagnosis: debility/right sided weakness Height/Weight Height (Feet): 5 Height (Inches): 7.00 Weight (Pounds): 185 Weight (Ounces): 8.0 Precautions Precautions/Isolations: Fall Prevention, Standard Precautions Weight Bear Status Right Lower Extremity: Right Full Weight Bearing Left Lower Extremity: Left Full Weight Bearing Referral Physician: Renee Reason for Referral: Evaluation/Treatment Medical History Pertinent Medical History: COPD, Heart Failure Current History CVA right hemiparesis Reviewed History: Yes Social History Home: Assisted Living Prior/Core FIM Prior Level of Function Therapy Code Descriptions/Definitions Functional [place] Measure: 0=Not Assessed/NA 4=Minimal Assistance 1=Total Assistance 5=Supervision or Setup 2=Maximal Assistance 6=Modified [place] 3=Moderate Assistance 7=Complete [place] Therapy Quality Codes: 6 Independent with activity with or without an assistive device 5 Patient requires set up or clean up by helper. Patient completes activity by themselves 4 Supervision or touching assist (CGA). [place] provide cues , steadying assist 3 The helper provides less than half the effort to complete the activity 2 The helper provides more than half the effort to complete the activity 1 Dependent. The helper does all the effort to complete an activity 7 Patient refused to complete or attempt activity 9 The patient did not perform the activity before the current illness or injury 88 Not attempted due to Medical conditions or safety concerns Functional Abilities and Goals: Independent: Patient completed the activities by him/herself, with or without an assistive device, with no assistance from a helper. Needed Some Help: Patient needed partial assistance from another person to complete activities. Dependent: A helper completed the activities for the patient. Unknown: Not Applicable: Bed Mobility: 6 Transfers (B,C,W/C) (FIM): 6 Gait: 7 Indoor Mobility (Ambulation): Independent Stairs: Independent Prior Devices Use: None PT Evaluation-Current Subjective Patient agrees to PT. No c/o. Pain Numeric Pain Scale: 0-No Pain Location: No Pain Reported Objective Patient Orientation: Normal For Age Problem Solving: Fair ROM/Strength ROM Lower Extremities bilateral LE WFL Strenght Lower Extremities right knee flexion/extension 3+/5; hip flexion 3+/5; DF/PF 3+/5 left knee flexion/extension 4/5; hip flexion 4/5; DF/PF/4/5 Integumentary/Posture Bowel Incontinence: No Bladder Incontinence: No Posture WFL Neuromuscular (Tone, Coordination, Reflexes) slightly diminished right LE coordination/bilateral tone WFL Sensory Vision: Functional Hearing: Impaired Sensation Right Lower Extremit: Intact Sensation Left Lower Extremity: Intact Transfers Therapy Code Descriptions/Definitions Functional [place] Measure: 0=Not Assessed/NA 4=Minimal Assistance 1=Total Assistance 5=Supervision or Setup 2=Maximal Assistance 6=Modified [place] 3=Moderate Assistance 7=Complete [place] Therapy Quality Codes: 6 Independent with activity with or without an assistive device 5 Patient requires set up or clean up by helper. Patient completes activity by themselves 4 Supervision or touching assist (CGA). [place] provide cues , steadying assist 3 The helper provides less than half the effort to complete the activity 2 The helper provides more than half the effort to complete the activity 1 Dependent. The helper does all the effort to complete an activity 7 Patient refused to complete or attempt activity 9 The patient did not perform the activity before the current illness or injury 88 Not attempted due to Medical conditions or safety concerns Transfers (B, C, W/C) (FIM): 4 Scootin Rollin Roll Left to Right (QC): 4 Supine to/from Sit: 4 Sit to/from Stand: 4 Sit to Lying (QC): 4 Lying to Sitting/Side of Bed(Q: 4 Sit to Stand (QC): 4 Chair/Phz-zy-Fcdtu Xfer(QC): 4 Car Transfer (QC): 4 Gait Does the Patient Walk?: Yes Mode of Locomotion: Walk Anticipated Mode of Locomotion: Walk Gait (FIM): 3 Distance (FIM): 3=150 ft Walk 10 feet (QC): 3 Walk 50 ft with 2 Turns(QC): 3 Walk 150 ft (QC): 3 Walking 10ft/uneven surface-QC: 3 Distance: 200' x 4 Gait Level of Assist: 3 Gait Persons Needed: 1 Gait Assistive Device: None Comments/Gait Description PT on right side with ECHOCARDIOGRAPHY TECHNOLOGIST right hand and use of gait belt/functional gait sequence with improvement with distance/time. No LOB/deviation Stairs Stairs (FIM): 3 #of Steps: 1 Level of Assist: 3 1 Step (curb) (QC): 3 4 Steps (QC): 88 12 Steps (QC): 88 Balance Sitting Static: Fair Sitting Dynamic: Fair Standing Static: Fair Standing Dynamic: Fair Assessment/Needs 78 y.o. male, will benefit from skilled PT to address functional strength and mobility to improve current LOF. Patient is a resident at an assisted living facility and has a goal to return at maximum LOF. Rehab Potential: Fair PT Mcfp Goals Mcfp Goals PT Mcfp Goals Time Frame: Apr 19, 2018 Transfers (B,C,W/C) (FIM): 6 Sit to Lying (QC): 6 Lying-Sitting on Side/Bed(QC): 6 Sit to Stand (QC): 6 Rollin Roll Left to Right (QC): 6 Chair/Isj-rz-Qfpqf Xfer(QC): 6 Car Transfer (QC): 5 Does the Patient Walk: Yes Gait (FIM): 6 Gait distance (FIM): 3=150 ft Distance: 250' Walk 10 feet (QC): 6 Walk 10ft-Uneven Surface(QC): 6 Walk 50ft with 2 Turns (QC): 6 Walk 150 ft (QC): 6 Gait Level of Assist: 6 Gait Assistive Device: None Stairs (FIM): 2 # of Steps: 4 1 Step (curb) (QC): 4 4 Steps (QC): 4 12 Steps (QC): 9 Stairs Level Of Assist: 4 Picking up an Object (QC): 5 PT Plan Problem List Problem List: Activity Tolerance, Functional Strength, Safety, Balance, Gait, Transfer, Bed Mobility Treatment/Plan Treatment Plan: Continue Plan of Care Treatment Plan: Bed Mobility, Education, Functional Activity Kristine, Functional Strength, Group Therapy, Gait, Safety, Therapeutic Exercise, Transfers Treatment Duration: Apr 19, 2018 Frequency: At least 5 of 7 days/Wk (IRF) Estimated Hrs Per Day: 1.5 hours per day Patient and/or Family Agrees t: Yes Discharge Recommendations Therapy D/C Recommendations: Assisted Living Time/GCodes Time In: 1030 Time Out: 1130 Total Billed Treatment Time: 60 Total Billed Treatment 1 visit EVModC 30 min GT 15 min EX 15 min CRISTIAN SAUCEDA PT Mar 28, 2018 12:53
[2018-03-28] MEDS: OMEGA 3 (FISH OIL) 1000 MG CAP PO SCH ×2 (14:39→20:16)
--- NOTE | 2018-03-28 15:09 | Physical Therapy Daily Note ---
PT Daily Note-Current Subjective Patient reports fatigue. Mental Status Patient Orientation: Normal For Age Transfers Therapy Code Descriptions/Definitions Functional [place] Measure: 0=Not Assessed/NA 4=Minimal Assistance 1=Total Assistance 5=Supervision or Setup 2=Maximal Assistance 6=Modified [place] 3=Moderate Assistance 7=Complete [place] Therapy Quality Codes: 6 Independent with activity with or without an assistive device 5 Patient requires set up or clean up by helper. Patient completes activity by themselves 4 Supervision or touching assist (CGA). [place] provide cues , steadying assist 3 The helper provides less than half the effort to complete the activity 2 The helper provides more than half the effort to complete the activity 1 Dependent. The helper does all the effort to complete an activity 7 Patient refused to complete or attempt activity 9 The patient did not perform the activity before the current illness or injury 88 Not attempted due to Medical conditions or safety concerns Transfers (B, C, W/C) (FIM): 4 Scootin Rollin Roll Left to Right (QC): 4 Supine to/from Sit: 4 Sit to/from Stand: 4 Sit to Lying (QC): 4 Sit to Stand (QC): 4 Chair/Idd-ko-Ackmn Xfer(QC): 4 Bed to/from Chair: 4 assist with right LE into bed Weight Bearing Right Lower Extremity: Right Full Weight Bearing Left Lower Extremity: Left Full Weight Bearing Exercises Supine Ex: Ankle pumps, Heel Slides, Straight leg raise, Hip abd/add Supine Reps: 15 (2 sets AAROM) Assessment Patient tolerated minimal activity this p.m. due to fatigue. Patient is in bed with 4 rails up and bed alarm activated with education color control operator light use. PT Washer Off Goals Nursing Home Goals PT Washer Off Goals Time Frame: Apr 19, 2018 Transfers (B,C,W/C) (FIM): 6 Sit to Lying (QC): 6 Lying-Sitting on Side/Bed(QC): 6 Sit to Stand (QC): 6 Rollin Roll Left to Right (QC): 6 Chair/Ofi-bm-Pcssj Xfer(QC): 6 Car Transfer (QC): 5 Does the Patient Walk: Yes Gait (FIM): 6 Gait distance (FIM): 3=150 ft Distance: 250' Walk 10 feet (QC): 6 Walk 10ft-Uneven Surface(QC): 6 Walk 50ft with 2 Turns (QC): 6 Walk 150 ft (QC): 6 Gait Level of Assist: 6 Gait Assistive Device: None Stairs (FIM): 2 # of Steps: 4 1 Step (curb) (QC): 4 4 Steps (QC): 4 12 Steps (QC): 9 Stairs Level Of Assist: 4 Picking up an Object (QC): 5 PT Plan Treatment/Plan Treatment Plan: Continue Plan of Care Treatment Plan: Bed Mobility, Education, Functional Activity Kristine, Functional Strength, Group Therapy, Gait, Safety, Therapeutic Exercise, Transfers Treatment Duration: Apr 19, 2018 Frequency: At least 5 of 7 days/Wk (IRF) Estimated Hrs Per Day: 1.5 hours per day Patient and/or Family Agrees t: Yes Time/GCodes Time In: 1445 Time Out: 1500 Total Billed Treatment Time: 15 Total Billed Treatment 1 visit FA 15 min CRISTIAN SAUCEDA PT Mar 28, 2018 15:09
--- NOTE | 2018-03-28 15:37 | Occupational Therapy Eval ---
OT Evaluation-General/PLF Medical Diagnosis Admission Date Mar 28, 2018 at 10:30 Medical Diagnosis: CVA/right hemiparesis Onset Date: Mar 27, 2018 Therapy Diagnosis Therapy Diagnosis: impaired self care skills Height/Weight Height (Feet): 5 Height (Inches): 7.00 Weight (Pounds): 185 Weight (Ounces): 8.0 Precautions Precautions/Isolations: Fall Prevention, Standard Precautions Referral Physician: Renee Medical History Pertinent Medical History: COPD, Heart Failure Current History CVA with right hemiparesis Reviewed History: Yes Social History Home: Assisted Living ADL-Prior Level of Function Therapy Code Descriptions/Definitions Functional [place] Measure: 0=Not Assessed/NA 4=Minimal Assistance 1=Total Assistance 5=Supervision or Setup 2=Maximal Assistance 6=Modified [place] 3=Moderate Assistance 7=Complete [place] Therapy Quality Codes: 6 Independent with activity with or without an assistive device 5 Patient requires set up or clean up by helper. Patient completes activity by themselves 4 Supervision or touching assist (CGA). [place] provide cues , steadying assist 3 The helper provides less than half the effort to complete the activity 2 The helper provides more than half the effort to complete the activity 1 Dependent. The helper does all the effort to complete an activity 7 Patient refused to complete or attempt activity 9 The patient did not perform the activity before the current illness or injury 88 Not attempted due to Medical conditions or safety concerns Functional Abilities and Goals: Independent: Patient completed the activities by him/herself, with or without an assistive device, with no assistance from a helper. Needed Some Help: Patient needed partial assistance from another person to complete activities. Dependent: A helper completed the activities for the patient. Unknown: Not Applicable: ADL PLOF Comments Pt nods that he is able to complete ADLs, but unable to provide further detailed information secondary to difficulty with expression. Self Care: Unknown Functional Cognition: Unknown OT Current Status Subjective Pt sitting up in bed eating lunch, agrees to treatment. Mental Status/Objective Patient Orientation: Person Current Glasses/Contacts: Yes Upper Extremity ROM Left UE WFL Right UE- PROM WFL- Pt has trace shoulder, elbow flexion and finger flexion. Upper Extremity Coordination Impaired left UE Upper Extremity Sensation Difficult to assess secondary to communication ADL-Treatment ADL-Current Pt supine to sit with minimal assistance. Transfer to chair with minimal assistance and cues for safety. Pt declined shower, but does agree to sponge bath. Sponge bath completed while seated in chair. Pt able to wash chest, abdomen, right UE, gerardo area, and bilateral upper legs. Required assist for lower legs, left UE, and buttocks. Don pullover shirt with max assist. Pt able to thread left LE into shorts, but requires assist with right. Pt stood with minimal assistance. Able to pull shorts over left hip, required assist to pull up over right. Pt able to doff/don socks with minimal assistance for balance. Combed hair with minimal assistance. Pt required min assist to complete oral care. Pt fatigues with activity and requires occasional rest breaks. Pt sitting in chair with needs met and chair alarm in place after session. Eating (FIM): 5 (Pt feeding self after set up) Eating (QC): 5 Grooming (FIM): 4 Oral Hygiene (QC): 3 Bathing (FIM): 3 Shower/Bathe Self (QC): 3 Upper Body Dressing (FIM): 2 Upper Body Dressing (QC): 2 Lower Body Dressing (FIM): 2 Lower Body Dressing (QC): 2 On/Off Footwear (QC): 3 Toilet/Commode Transfer (FIM): 4 Toilet Transfer (QC): 3 Education OT Patient Education: Rehab process Teaching Recipient: Patient Teaching Methods: Discussion Response to Teaching: Reinforcement Needed OT Short Term Goals Short Term Goals Time Frame: Apr 04, 2018 Grooming(FIM): 5 Bathing(FIM): 4 Upper Body Dressing(FIM): 4 Lower Body Dressing(FIM): 4 Toileting(FIM): 4 Additional Short Term Goals: 1-Demonstrate ADL Tasks, 2-Verbalize Understanding , 3-ImproveStrength/Kristine 1=Demonstrate adherence to instructed precautions during ADL tasks. 2=Patient will verbalize/demonstrate understanding of assistive devices/ modifications for ADL. 3=Patient will improve strength/tolerance for activity to enable patient to perform ADL's. OT Executive Director Global Brand Marketing Goals Executive Director Global Brand Marketing Goals Time Frame: Apr 18, 2018 Eating (FIM): 6 Eating (QC): 6 Groomin Oral Hygiene (QC): 6 Bathing(FIM): 5 Shower/Bathe Self (QC): 4 Upper Body Dressing(FIM): 6 Upper Body Dressing (QC): 6 Lower Body Dressing(FIM): 5 Lower Body Dressing (QC): 5 On/Off Footwear (QC): 5 Toileting(FIM): 6 Toileting Hygiene (QC): 6 Toilet/Commode Transfer(FIM): 6 Toilet/Commode Transfer (QC): 6 Shower Transfer(FIM): 5 Additional Goals: 1-Demonstrate ADL Tasks, 2-Verbalize Understanding, 3- ImproveStrength/Kristine 1=Demonstrate adherence to instructed precautions during ADL tasks. 2=Patient will verbalize/demonstrate understanding of assistive devices/ modifications for ADL. 3=Patient will improve strength/tolerance for activity to enable patient to perform ADL's. Goals established to promote increased functional independence and allow safe discharge. OT Education/Plan Problem List/Assessment Assessment: Decreased Activ Tolerance, Decreased UE Strength, Dependent Transfers, Impaired Coordination, Impaired Funct Balance, Impaired I ADL's, Impaired Self-Care Skills Discharge Recommendations Plan/Recommendations: Continue POC Treatment Plan/Plan of Care Treatment,Training & Education: Yes Patient would benefit from OT for education, treatment and training to promote independence in ADL's, mobility, safety and/or upper extremity function for ADL' s. Plan of Care: ADL Retraining, Functional Mobility, Group Exercise/Act as Ind, UE Funct Exercise/Act, UE Neuromus Re-Ed/Coord, Visual/Perceptual Retrain Treatment Duration: Apr 18, 2018 Frequency: At least 5 of 7 days/Wk (IRF) Estimated Hrs Per Day: 1.5 hours per day Agreement: Yes Rehab Potential: Fair Time/GCodes Start Time: 13:30 Stop Time: 14:45 Total Time Billed (hr/min): 75 Billed Treatment Time 1 visit, EVM(15minutes), ADLx4(60minutes) BREE SHABAZZ OT Mar 28, 2018 15:37
--- NOTE | 2018-03-28 15:44 | ST Dysphagia Evaluation ---
Speech Evaluation-General Medical Diagnosis CVA/right hemiparesis Onset Date: Mar 27, 2018 Therapy Diagnosis Therapy Diagnosis: Oropharyngeal Dysphagia Precautions Precautions: Aspiration Precautions/Isolations: Fall Prevention, Standard Precautions Medical History Pertinent Medical History: COPD, Heart Failure Reviewed History: Yes Speech PLF/Current-Dysphagia Prior Level of Function Patient lived in a local assisted living facility where he consumed a regular level of diet without difficulty. Subjective Patient was pleasant and cooperative during the evaluation. Cognitive Status Patient Orientation: Person, Place, Non-Verbal/Aphasic Oral Motor Skills Dentition: Natural Denture Type: Full- Upper Current Food Consistancy: Pureed, Thin Liquids Ability to Follow Directions: Good Oral Expression Ability: Moderate Impairment Patient's CVA has affected the right side. Voice Voice Phonatory-Based Quality: Normal Voice Pitch: Normal Voice Loudness: Normal Oral-Facial Assessment Oral-Facial Dentition: Normal Labial Seal Description: Droops Right Smile: Droops Right Puff Cheeks: Reduced Strength Lingual Protrusion: Abnormal Lingual ROM: Abnormal Lingual Strength: Abnormal Gag Reflex Response: Absent Pharynx Velopharyngeal Move.: Weak on Right Volitional Dry Swallow: Yes Voluntary Cough: No Productive Cough: No Productive Throat Clear: No Dysphagia Evaluation Consistencies Presented: Thin Liquid, Pureed Oral Phase: Oral Residue, Right Pocketing Pharyngeal Phase: Decreased A/P Bolus Transit Funct. Velo/Pharyngeal Symptom: Cough After Swallow Dietary Recommendations: Pureed Liquid Recommendations: Thin Swallowing Precautions: Alternate Liquids/Solids, Double Swallow, Decreased Bolus 1/2 Tsp, Decreased Rate of Oral Intake, Liquids from Straw, Small Bites and Sips, Sitting Upright 90 Degrees, Sitting 90 Degrees 30 Post Intake, Right Tongue Sweep Dysphagia Evaluation Summary Patient is a 78 year old male who was admitted to the ARU post CVA. Patient was evaluated per physician's order for oral motor function/least restrictive diet level. Patient was presented puree with thin liquids via straw which he was started on 03/27/18 while he was a patient on the acute floor. Patient is able to drink his beverages via straw. Patient feeds himself his puree diet. He is noted to pocket on the right side due to weakness as a result of the CVA. Patient was instructed to take a small sip after every 2-3 bites and swish before swallowing to clear any pocketing. Patient was able to follow at 75%. Barriers to Learning Patient has expressive aphasia which makes it difficult for him to speak more than one word responses. Speech Short Term Goals Short Term Goals Short Term Goals 1) Patient will tolerate least restrictive diet level without s/s of aspiration at 90% or greater. 2) Patient will utilize compensatory strategies as trained with 90% or greater. Speech Manufacturing Sales Representative Goals Shelter Goals Patient will maintain adequate nutrition/hydration via safe, effective swallow function. Speech-Plan Patient/Family Goals Patient/Family Goals: Patient will return to the assisted living post rehab. Treatment Plan Speech Therapy Treatment Plan: Continue Plan of Care Patient is recommended for skilled ST for dysphagia. Treatment Duration: Apr 04, 2018 Frequency: 5 times per week Estimated Hrs Per Day: .25 hour per day Rehab Potential: Fair Barriers to Learning: Patient has expressive aphasia and dysphagia. Pt/Family Agrees to Plan: Yes Safety Risks/Education Teaching Recipient: Patient Teaching Methods: Discussion Response to Teaching: Verbalize Understanding Education Topics Provided: Safety of oral intake, compensatory strategies. Time Speech Therapy Time In: 13:00 Speech Therapy Time Out: 13:15 Total Billed Time: 15 Billed Treatment Time 1RENUKA B[address] ST Mar 28, 2018 15:44
--- NOTE | 2018-03-28 15:57 | ST Cognitive Linguistic Eval ---
Speech Evaluation-General Medical Diagnosis CVA/right hemiparesis Onset Date: Mar 27, 2018 Therapy Diagnosis Therapy Diagnosis: Aphasia Precautions Precautions: Aspiration Precautions/Isolations: Fall Prevention, Standard Precautions Medical History Pertinent Medical History: COPD, Heart Failure Reviewed History: Yes Speech PLF-Current Status Prior Level of Function Patient lived in a local assisted living facility where he was independent for most of his daily needs. Subjective Patient was cooperative and pleasant throughout the evaluation process. Language Eval: Auditory Comprehends Simple Yes/No Ques: Functional Indent/Objects Multiple [place]: Functional Ident/Pics in Multiple Harris: Functional Follows 1-Step Commands: Functional Follows Complex Directions: Mild Follows General Conversations: Mild Language Eval: Verbal Language Completes Spontaneous Greeting: Functional Produces Auto, Serial Info: Moderate Imitates Simple Words/Phrases: Moderate Word Finding: Moderate Requests Basic Needs: Severe States Basic Personal Info: Severe Patient has expressive aphasia and only speaks in one word responses. Objective Cognitive Domain Attention: WNL Memory: Mild Problem Solving: Moderate, Mild Executive Functions: Mild Objective Formal/Standardized Tests Western Aphasia Battery (WAB) Results Spontaneous Speech: 20, Auditory Verbal Comprehension: 54/60, Auditory word Recognition; 42/60, Repetition: 8/10, Sentence Completion: 8/10, Responsive Speech: 8/10 Oral Motor/Speech Production Moderate to severe expressive aphasia Impression Based on evaluation results the patient demonstrates mild-moderate receptive aphasia and a moderate to moderately severe expressive aphasia. Communication/Social Cognition Comprehension: 4 Expression: 1 Social Interaction: 3 Problem Solvin Memory: 4 Speech Patient Assess Expression of Ideas/Wants: Frequently (2) Understanding Verbal Content: Sometimes Understands(2) Brief Interview-Mental Status: Yes Repetition of Three Words: One (1) Speech Short Term Goals Short Term Goals Short Term Goals 1) Patient will tolerate least restrictive diet level without s/s of aspiration at 90% or greater. 2) Patient will utilize compensatory strategies as trained with 90% or greater. 3) Patient patient will complete various verbal expressive tasks ( confrontational naming, sentence completion, etc.) with 80% or greater. Speech Soft Sugar Operator Head Goals Soft Sugar Operator Head Goals Patient will maintain adequate nutrition/hydration via safe, effective swallow function. Patient will demonstrate increased auditory comprehension and verbal expression to be able to carry on a simple conversation with min assist. Speech-Plan Patient/Family Goals Patient/Family Goals: Patient plans to return to the assisted living facility post rehab. Treatment Plan Speech Therapy Treatment Plan: Continue Plan of Care Patient is recommended for skilled ST services for aphasia. Treatment Duration: Apr 04, 2018 Frequency: 5 times per week Estimated Hrs Per Day: .25 hour per day Rehab Potential: Fair Barriers to Learning: Patient has difficulty with communication. Pt/Family Agrees to Plan: Yes Safety Risks/Education Teaching Recipient: Patient Teaching Methods: Discussion Response to Teaching: Verbalize Understanding Education Topics Provided: Safety and procedures for his room Time Speech Therapy Time In: 15:15 Speech Therapy Time Out: 15:30 Total Billed Time: 15 Billed Treatment Time 1, SPSNDCOMP DEV Khanna Mar 28, 2018 15:57
[2018-03-28 16:52] VITALS: BP 95/59
[2018-03-28] MEDS: APIXABAN 5 MG (ELIQUIS) TABLET PO SCH (20:16)
[2018-03-28] MEDS: ATORVASTATIN 80 MG (LIPITOR) TABLET PO SCH (20:16)
[2018-03-28] MEDS: CARVEDILOL 6.25 MG (COREG) TAB PO SCH (20:16)
[2018-03-29 05:16] VITALS: BP 109/69
[2018-03-29] MEDS: inSUlin ASPART (NovoLOG) 1 UNIT/0.01 ML (CHARGE PER UNIT) SC SCH ×4 (05:18→20:40)
[2018-03-29] MEDS: GLIMEPIRIDE 4 MG (AMARYL) TAB PO SCH (06:33)
[2018-03-29] MEDS: PANTOPRAZOLE 20 MG TABLET (PROTONIX) PO SCH (06:33)
[2018-03-29 09:23] VITALS: BP 123/67
[2018-03-29] MEDS: ENALAPRIL 2.5 MG (VASOTEC) TAB PO SCH (09:25)
[2018-03-29] MEDS: METHIMAZOLE TABLET 5 MG TABLET PO SCH (09:25)
[2018-03-29] MEDS: APIXABAN 5 MG (ELIQUIS) TABLET PO SCH ×2 (09:25→19:53)
[2018-03-29] MEDS: CARVEDILOL 6.25 MG (COREG) TAB PO SCH ×2 (09:25→19:53)
[2018-03-29] MEDS: DIGOXIN 0.125 MG (LANOXIN) TAB PO SCH (09:25)
[2018-03-29] MEDS: FUROSEMIDE 40 MG (LASIX) TAB PO SCH (09:25)
[2018-03-29] MEDS: OMEGA 3 (FISH OIL) 1000 MG CAP PO SCH ×3 (09:25→19:53)
[2018-03-29] MEDS: AMIODARONE 200 MG (CORDARONE) TAB PO SCH (09:26)
[2018-03-29] MEDS: VITAMIN D3 1,000 UNITS (CHOLECALCIFEROL) TABLET PO SCH (09:26)
--- NOTE | 2018-03-29 11:56 | Physical Therapy Daily Note ---
PT Daily Note-Current Subjective Pt has limited verbal communication, but able to agree to treatment. Transfers Therapy Code Descriptions/Definitions Functional [place] Measure: 0=Not Assessed/NA 4=Minimal Assistance 1=Total Assistance 5=Supervision or Setup 2=Maximal Assistance 6=Modified [place] 3=Moderate Assistance 7=Complete [place] Therapy Quality Codes: 6 Independent with activity with or without an assistive device 5 Patient requires set up or clean up by helper. Patient completes activity by themselves 4 Supervision or touching assist (CGA). [place] provide cues , steadying assist 3 The helper provides less than half the effort to complete the activity 2 The helper provides more than half the effort to complete the activity 1 Dependent. The helper does all the effort to complete an activity 7 Patient refused to complete or attempt activity 9 The patient did not perform the activity before the current illness or injury 88 Not attempted due to Medical conditions or safety concerns Transfers (B, C, W/C) (FIM): 6 Roll Left to Right (QC): 6 Supine to/from Sit: 6 Sit to/from Stand: 6 Sit to Lying (QC): 6 Sit to Stand (QC): 6 Weight Bearing Right Lower Extremity: Right Full Weight Bearing Left Lower Extremity: Left Full Weight Bearing Gait Training Does the Patient Walk?: Yes Gait (FIM): 4 Distance (FIM): 3=150 ft Distance: 180ft Gait Level of Assist: 4 Gait Persons Needed: 1 Gait Assistive Device: FWW Exercises Supine Ex: LE Protocol Supine Reps: 20 Assessment Good tolerance to ambulation, with good stability. PT Fdc Goals Fdc Goals PT Player Services Representative Goals Time Frame: Apr 19, 2018 Transfers (B,C,W/C) (FIM): 6 Sit to Lying (QC): 6 Lying-Sitting on Side/Bed(QC): 6 Sit to Stand (QC): 6 Rollin Roll Left to Right (QC): 6 Chair/Vvs-io-Uxfql Xfer(QC): 6 Car Transfer (QC): 5 Does the Patient Walk: Yes Gait (FIM): 6 Gait distance (FIM): 3=150 ft Distance: 250' Walk 10 feet (QC): 6 Walk 10ft-Uneven Surface(QC): 6 Walk 50ft with 2 Turns (QC): 6 Walk 150 ft (QC): 6 Gait Level of Assist: 6 Gait Assistive Device: None Stairs (FIM): 2 # of Steps: 4 1 Step (curb) (QC): 4 4 Steps (QC): 4 12 Steps (QC): 9 Stairs Level Of Assist: 4 Picking up an Object (QC): 5 PT Plan Treatment/Plan Treatment Plan: Continue Plan of Care Treatment Plan: Bed Mobility, Education, Functional Activity Kristine, Functional Strength, Group Therapy, Gait, Safety, Therapeutic Exercise, Transfers Treatment Duration: Apr 19, 2018 Frequency: At least 5 of 7 days/Wk (IRF) Estimated Hrs Per Day: 1.5 hours per day Patient and/or Family Agrees t: Yes Time/GCodes Time In: 1120 Time Out: 1135 Total Billed Treatment Time: 15 Total Billed Treatment 1, gt15 SWEETIE SEARS PT Mar 29, 2018 11:56
--- NOTE | 2018-03-29 12:20 | History & Physical ---
History of Present Illness History of Present Illness Reason for visit/HPI CC: ischemic stroke with severe right sided hemiparesis HPI: This is a 78-year-old white male he was transferred from fourth floor after sustaining a stroke deemed not a TPA candidate due to brought to the ER 12 hours after last seen well by the family. Pt was seen by therapies and speech after dysphagia noted and was immediately changed to a pureed diet of which he is tolerating well. Patient has had extensive cardiac problems including paroxysmal atrial fibrillation along with ICD, CHF EF 35% and CAD w/ stents along with DM and HTN. Patient is tolerating PT well with return of some function of his right side. Pt remains with aphasia so he is unable to contribute much information during the interview. Date of Admission Mar 28, 2018 at 10:30 Date Seen by a Provider: Mar 29, 2018 Time Seen by a Provider: 10:30 I consulted on this patient on 03/29/18 12:20 Attending Physician Josie Duran DO Admitting Physician Celio Hernandez DO Consult Allergies and Home Medications Allergies Coded Allergies: No Known Drug Allergies (Unverified , 03/27/11) Home Medications Aspirin 81 Mg Tablet.dr, 81 MG PO DAILY, (Reported) Atorvastatin Calcium 80 Mg Tablet, 80 MG PO DAILY, (Reported) Carvedilol 6.25 Mg Tablet, 6.25 MG PO BID, (Reported) Cholecalciferol (Vitamin D3) 2,000 Unit Capsule, 2,000 UNIT PO DAILY, (Reported) Digoxin 125 Mcg Tablet, 125 MCG PO DAILY, (Reported) Enalapril Maleate 2.5 Mg Tablet, 2.5 MG PO DAILY, (Reported) Furosemide 40 Mg Tablet, 40 MG PO DAILY, (Reported) Glimepiride 4 Mg Tablet, 4 MG PO DAILY, (Reported) Metformin HCl 500 Mg Tablet, 500 MG PO BID, (Reported) Methimazole 5 Mg Tablet, 5 MG PO DAILY, (Reported) [place] 3 Polyunsat Fatty Acids 1,000 Mg Cap, 1,000 MG PO TID, (Reported) Omeprazole 20 Mg Capsule.dr, 20 MG PO DAILY, (Reported) Ticagrelor 90 Mg Tablet, 90 MG PO BID, (Reported) Patient Home Medication List Home Medication List Reviewed: Yes Past [id number]-[id number] Hx Past Med/Social Hx: Reviewed Nursing Past Med/Soc Hx, Reviewed and Corrections made Patient Social History Marrital Status: Employed/Student: retired Alcohol Use: Rarely Uses Number of Drinks Today: 0 Recreational Drug Use: No Smoking Status: Current Everyday Smoker Type Used: Pipe Physical Abuse Screen: No Sexual Abuse: No Recent Hopitalizations: Yes (CVA) Immunizations Up To Date Date of Pneumonia Vaccine: Dec 20, 2013 Date of Influenza Vaccine: Dec 16, 2017 Past Medical History Surgeries: Cardiac, Defibrillator Respiratory: COPD Cardiac: Atrial Fibrillation, Chronic Edema/Swelling, Coronary Artery Disease, High Cholesterol, Hypertension Reproductive: No Genitourinary: Renal Failure Gastrointestinal: Gastroesophageal Reflux Musculoskeletal: Arthritis Endocrine: Diabetes, Non-Insulin dep Cancer: Skin Did You Recieve Any Treatments: Yes What Type of Treatment Did You: Surgical Intervention History of Blood Disorders: Yes Family History Diabetes Review of Systems Constitutional: see HPI, weakness EENTM: no symptoms reported Respiratory: no symptoms reported Cardiovascular: no symptoms reported Gastrointestinal: no symptoms reported Genitourinary: no symptoms reported Musculoskeletal: no symptoms reported Skin: no symptoms reported Psychiatric/Neurological: Depressed, Numbness, Tingling, Weakness Physical Exam Vital Signs Vital Signs - First Documented 03/28/18 10:50 Temp 97.8 Pulse 67 Resp 20 B/P (MAP) 127/70 (89) Pulse Ox 96 O2 Delivery Room Air Capillary Refill : Height, Weight, BMI Height: 5'7.00" Weight: 190lbs. 2.0oz. 86.077588mn; 29.8 BMI Method:Estimated General Appearance: No Apparent Distress, WD/WN, Chronically ill, Obese Eyes: Bilateral Eye Normal Inspection, Bilateral Eye PERRL, Bilateral Eye EOMI HEENT: PERRL/EOMI, Normal ENT Inspection, Pharynx Normal, Other (left facial droop) Neck: Full Range of Motion, Normal Inspection, Non Tender, Supple, Carotid Bruit Respiratory: Chest Non Tender, Lungs Clear, Normal Breath Sounds, No Accessory Muscle Use, No Respiratory Distress Cardiovascular: Regular Rate, Rhythm, No Edema, No Gallop, No JVD, No Murmur, Normal Peripheral Pulses Gastrointestinal: Normal Bowel Sounds, No Organomegaly, No Pulsatile Mass, Non Tender, Soft Back: Normal Inspection, No CVA Tenderness, No Vertebral Tenderness Extremity: Normal Capillary Refill, Normal Inspection, Normal Range of Motion, Non Tender, No Calf Tenderness, No Pedal Edema Neurologic/Psychiatric: Alert, Oriented x3 (unable to ascertain exactly the orientation due to aphasia), Normal Mood/Affect, Aphasia, Motor Weakness (right side hemiparesis) Skin: Normal Color, Warm/Dry Lymphatic: No Adenopathy Assessment/Plan Assessment and Plan Assessment: 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 aphasia CAD s/p stents in the past Congestive heart failure chronic systolic dysfunction ejection fraction 35 percent Status post ICD implanted by Dr Raphael at [facility] Paroxysmal atrial fibrillation status post cardioversion not on anticoagulation Carotid artery stenosis status post left CEA COPD Cigar smoker Hypertension Hyperlipidemia Diabetes mellitus Situational depression Plan: Continue therapies Bowel and bladder maintenance of routine Appreciate cardiology management for complex cardiac history Improving strength on the right side so improving the ability to assist in ADLs May need behavioral health to evaluate depression since it may interfere with his therapies and progression Problems: (1) Cerebrovascular accident (CVA) with involvement of right side of body Status: Acute (2) Aphasia Status: Acute (3) Situational depression Status: Acute (4) CHF (congestive heart failure) Status: Chronic (5) CAD (coronary artery disease) Status: Chronic (6) Stented coronary artery Status: Chronic (7) Diabetes mellitus Status: Chronic (8) Hypertension Status: Chronic (9) Hyperlipidemia Status: Chronic (10) Renal insufficiency Status: Chronic (11) ICD (implantable cardioverter-defibrillator) in place Status: Chronic (12) Smoker Status: Chronic (13) COPD (chronic obstructive pulmonary disease) Status: Chronic (14) Expressive aphasia Status: Acute (15) Pacemaker Status: Chronic Admission Diagnosis Admission Status: Inpatient Order (span 2 midnights) Reason for Inpatient Admission: Rehab Clinical Quality Measures DVT/VTE Risk/Contraindication: Risk Factor Score Per Nursin RFS Level Per Nursing on Admit: 4+=Very High Diagnosis/Problems Diagnosis/Problems (1) Cerebrovascular accident (CVA) with involvement of right side of body Status: Acute (2) ICD (implantable cardioverter-defibrillator) in place Status: Chronic (3) Situational depression Status: Acute (4) Pacemaker Status: Chronic (5) Aphasia Status: Acute (6) Hypertension Status: Chronic (7) Renal insufficiency Status: Chronic (8) Hyperlipidemia Status: Chronic (9) CHF (congestive heart failure) Status: Chronic (10) CAD (coronary artery disease) Status: Chronic (11) Expressive aphasia Status: Acute (12) Diabetes mellitus Status: Chronic (13) COPD (chronic obstructive pulmonary disease) Status: Chronic (14) Smoker Status: Chronic (15) Stented coronary artery Status: Chronic Problem Qualifiers (1) CHF (congestive heart failure): Heart failure type: systolic Heart failure chronicity: chronic Qualified Codes: I50.22 - Chronic systolic (congestive) heart failure (2) CAD (coronary artery disease): Coronary Disease-Associated Artery/Lesion type: [place] artery [place] vs. transplanted heart: [place] heart Associated angina: without angina Qualified Codes: I25.10 - Atherosclerotic heart disease of [place] coronary artery without angina pectoris (3) Diabetes mellitus: Diabetes mellitus type: type 2 Diabetes mellitus ferry terminal agent insulin use: without jail use Diabetes mellitus complication status: with circulatory complication Diabetes mellitus complication detail: with other circulatory complications Qualified Codes: E11.59 - Type 2 diabetes mellitus with other circulatory complications (4) Hypertension: Hypertension type: essential hypertension Qualified Codes: I10 - Essential ( primary) hypertension (5) Hyperlipidemia: Hyperlipidemia type: mixed hyperlipidemia Qualified Codes: E78.2 - Mixed hyperlipidemia (6) COPD (chronic obstructive pulmonary disease): COPD type: unspecified COPD Qualified Codes: J44.9 - Chronic obstructive pulmonary disease, unspecified JOISE DURAN DO Mar 29, 2018 12:20
--- NOTE | 2018-03-29 12:25 | PM&R Post Admission Assessment ---
Post Admission Physician Asses Date seen by provider: Mar 29, 2018 Time seen by provider: 10:30 Admisison Dx: (1) Cerebrovascular accident (CVA) with involvement of right side of body Status: Acute (2) Pacemaker Status: Chronic (3) Aphasia (4) Expressive aphasia Status: Acute The preadmission screen agrees with the post admission assessment that the patient is a good candidate for inpatient rehabilitation. The patient will have a comprehensive program of inpatient rehabilitation with a goal of maximizing level of functional independence prior to discharge home with [family]. The patient will have PT/OT ninety minutes per day, each discipline, five days a week for gait, strengthening, conditioning, balance, ADLs, any patient/family/caregiver training as necessary. Speech therapy to do cognitive assessment and treat as indicated. Rehabilitation nursing to assist with bowel, bladder, skin, wound care, medication administration, pain management. Tailor Garment Fitter to assist with discharge planning, community reentry. SCD's for DVT prophylaxis. He appears to be well motivated to participate in three hours of therapy a day. He should be able to tolerate three hours of therapy a day from a medical standpoint. He should benefit from the three hours of therapy a day. He has a reasonable discharge plan, reasonable discharge rehabilitation goals and a supportive family. He has various comorbidities that need to be closely monitored with medications and treatments adjusted on a daily basis as needed. These include: see list above Barriers to discharge for this patient who had been independent prior to this are for him to be modified independent to supervision for ADLs and mobility skills prior to discharge home with family, so as to lessen the burden of the caregivers. Risks for this patient include: 1. Fall 2. Fracture 3. DVT 4. Pulmonary embolism 5. Wound infection 6. Skin breakdown 7. Contractures 8. Poorly controlled pain 9. Urinary retention 10. UTI 11. Respiratory infection 12. Aspiration [] Estimated Length of Stay: 14 days Prognosis: Rehab prognosis appears good for goal of discharge home with family modified independent to supervision for ADLs and mobility skills. General: Alert, Oriented X3, Cooperative, No Acute Distress HEENT: Atraumatic, PERRLA, EOMI, Mucous Memb Moist/[place] Neck: Supple, No JVD, No Thyromegaly, +2 Carotid Pulse No Bruit Lungs: Clear to Auscultation, Normal Air Movement Heart: Regular Rate, Normal S1, Normal S2, No Murmurs, Gallops Abdomen: Normal Bowel Sounds, Soft, No Tenderness, No Hepatosplenomegaly, No Masses Extremities: No Clubbing, No Cyanosis, No Edema, Normal Pulses, No Tenderness/ Swelling Skin: No Rashes, No Breakdown, No Significant Lesion Neuro: Sensation Intact, Other (right sided hemiparesis 1/5 upper and lower, global weakness, aphasia, facial droop left) GRISELDA SANTOS DO Mar 29, 2018 12:25
[2018-03-29 17:46] VITALS: BP 133/79
[2018-03-29] MEDS: ATORVASTATIN 80 MG (LIPITOR) TABLET PO SCH (19:53)
[2018-03-30] MEDS: PANTOPRAZOLE 20 MG TABLET (PROTONIX) PO SCH (06:09)
[2018-03-30] MEDS: inSUlin ASPART (NovoLOG) 1 UNIT/0.01 ML (CHARGE PER UNIT) SC SCH ×4 (06:10→20:57)
[2018-03-30] MEDS: GLIMEPIRIDE 4 MG (AMARYL) TAB PO SCH (06:10)
--- NOTE | 2018-03-30 06:16 | PM&R Progress Note ---
Subjective HPI/CC On Admission Date Seen by Provider: Mar 30, 2018 Time Seen by Provider: 06:00 Subjective/Events-last exam Patient able to walk with assistance for right side Nurse uses gait belt to bring him to the bathroom Aphasia not any real major changes unlike ambulation and moving the right side Last had a BM on 03/28/18 so we will start regimen for that Overall denies any pain Slept well last night Feels very reassured since regaining some of his function Review of Systems Gastrointestinal: Constipation Neurological: Weakness, Numbness, Incoordination Objective Exam Vital Signs Vital Signs Date Time Temp Pulse Resp B/P (MAP) Pulse Ox O2 Delivery O2 Flow Rate FiO2 03/30/18 10:22 60 107/65 (79) Room Air 03/30/18 06:36 98.3 20 95 Capillary Refill : General Appearance: No Apparent Distress, WD/WN, Chronically ill Respiratory: Chest Non Tender, Lungs Clear, Normal Breath Sounds, No Accessory Muscle Use, No Respiratory Distress Cardiovascular: Regular Rate, Rhythm, No Edema, No Gallop, No JVD, No Murmur, Normal Peripheral Pulses Neurologic/Psychiatric: Alert, Oriented x3, Normal Mood/Affect, Motor Weakness (right upper extremity and left lower extremity improved 3-4/5), Other (aphasia noted) Results/Procedures Lab Patient resulted labs reviewed. 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 aphasia with improved right upper and lower extremity function now but aphasia no significant changes yet CAD s/p stents in the past Congestive heart failure chronic systolic dysfunction ejection fraction 35 percent Status post ICD implanted by Dr Raphael at [facility] Paroxysmal atrial fibrillation status post cardioversion not on anticoagulation Carotid artery stenosis status post left CEA COPD Cigar smoker Hypertension Hyperlipidemia Diabetes mellitus Situational depression Constipation Plan: Continue therapies Bowel and bladder maintenance of routine Appreciate cardiology management for complex cardiac history Improving strength on the right side so improving the ability to assist in ADLs May need behavioral health to evaluate depression since it may interfere with his therapies and progression BM regimen Diagnosis/Problems Diagnosis/Problems (1) Cerebrovascular accident (CVA) with involvement of right side of body Status: Acute (2) ICD (implantable cardioverter-defibrillator) in place Status: Chronic (3) Situational depression Status: Acute (4) Pacemaker Status: Chronic (5) Aphasia Status: Acute (6) Hypertension Status: Chronic Qualifiers: Hypertension type: essential hypertension Qualified Codes: I10 - Essential (primary) hypertension (7) Renal insufficiency Status: Chronic (8) Hyperlipidemia Status: Chronic Qualifiers: Hyperlipidemia type: mixed hyperlipidemia Qualified Codes: E78.2 - Mixed hyperlipidemia (9) CHF (congestive heart failure) Status: Chronic Qualifiers: Heart failure type: systolic Heart failure chronicity: chronic Qualified Codes: I50.22 - Chronic systolic (congestive) heart failure (10) CAD (coronary artery disease) Status: Chronic Qualifiers: Coronary Disease-Associated Artery/Lesion type: [place] artery [place] vs. transplanted heart: [place] heart Associated angina: without angina Qualified Codes: I25.10 - Atherosclerotic heart disease of [place] coronary artery without angina pectoris (11) Expressive aphasia Status: Acute (12) Diabetes mellitus Status: Chronic Qualifiers: Diabetes mellitus type: type 2 Diabetes mellitus longterm insulin use: without longterm use Diabetes mellitus complication status: with circulatory complication Diabetes mellitus complication detail: with other circulatory complications Qualified Codes: E11.59 - Type 2 diabetes mellitus with other circulatory complications (13) COPD (chronic obstructive pulmonary disease) Status: Chronic Qualifiers: COPD type: unspecified COPD Qualified Codes: J44.9 - Chronic obstructive pulmonary disease, unspecified (14) Smoker Status: Chronic (15) Stented coronary artery Status: Chronic (16) Constipation Status: Acute Qualifiers: Constipation type: slow transit constipation Qualified Codes: K59.01 - Slow transit constipation Clinical Quality Measures Admission Status Admission Dx Assessment: 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 aphasia CAD s/p stents in the past Congestive heart failure chronic systolic dysfunction ejection fraction 35 percent Status post ICD implanted by Dr Raphael at [facility] Paroxysmal atrial fibrillation status post cardioversion not on anticoagulation Carotid artery stenosis status post left CEA COPD Cigar smoker Hypertension Hyperlipidemia Diabetes mellitus Situational depression Plan: Continue therapies Bowel and bladder maintenance of routine Appreciate cardiology management for complex cardiac history Improving strength on the right side so improving the ability to assist in ADLs May need behavioral health to evaluate depression since it may interfere with his therapies and progression DVT/VTE Risk/Contraindication: Risk Factor Score Per Nursin RFS Level Per Nursing on Admit: 4+=Very High GRISELDA SANTOS DO Mar 30, 2018 06:16
[2018-03-30 06:36] VITALS: BP 112/74
[2018-03-30] MEDS: DIGOXIN 0.125 MG (LANOXIN) TAB PO SCH (09:18)
[2018-03-30] MEDS: METHIMAZOLE TABLET 5 MG TABLET PO SCH (09:18)
[2018-03-30] MEDS: APIXABAN 5 MG (ELIQUIS) TABLET PO SCH ×2 (09:19→20:57)
[2018-03-30] MEDS: AMIODARONE 200 MG (CORDARONE) TAB PO SCH (09:19)
[2018-03-30] MEDS: FUROSEMIDE 40 MG (LASIX) TAB PO SCH (09:19)
[2018-03-30] MEDS: OMEGA 3 (FISH OIL) 1000 MG CAP PO SCH ×3 (09:19→20:57)
[2018-03-30] MEDS: CARVEDILOL 6.25 MG (COREG) TAB PO SCH ×2 (09:19→20:57)
[2018-03-30] MEDS: ENALAPRIL 2.5 MG (VASOTEC) TAB PO SCH (09:19)
[2018-03-30] MEDS: VITAMIN D3 1,000 UNITS (CHOLECALCIFEROL) TABLET PO SCH (09:20)
[2018-03-30 10:22] VITALS: BP 107/65
--- NOTE | 2018-03-30 15:56 | Individualized Plan of Care ---
Individualized Plan of Care Rehab Nursing IPOC Order Admission Date Mar 28, 2018 at 10:30 Current Orders Orders Pt Evaluate/Treat Request (03/28/18 09:57) Request Ot Evaluate & Treat (03/28/18 09:57) Request For Cognitive Services (03/28/18 09:57) Request For Dysphagia Services (03/28/18 09:57) Request Speech/Language Servic (03/28/18 09:57) Accucheck Achs ACHS (03/28/18 11:00) Ambulate 08,12,20 (03/28/18 11:00) Initiate Admission Nursing Pro .admission (03/28/18 11:00) Intake & Output 06,14,22 (03/28/18 11:00) Alprazolam Tablet (Xanax Tablet) (03/28/18 11:00) Acetaminophen Tablet (Tylenol Tablet) (03/28/18 11:00) Amiodarone Tablet (Cordarone Tablet) (03/29/18 09:00) Apixaban Tablet (Eliquis Tablet) (03/28/18 21:00) Atorvastatin Tablet (Lipitor Tablet) (03/28/18 21:00) Calcium Carbonate Chew Tablet (Antacid C (03/28/18 11:00) Carvedilol Tablet (Coreg Tablet) (03/28/18 21:00) Cholecalciferol Capsule/Tablet (Vitamin (03/29/18 09:00) Digoxin Tablet (Lanoxin Tablet) (03/29/18 09:00) Docusate Sodium Capsule (Colace Capsule) (03/28/18 11:00) Enalapril Tablet (Vasotec Tablet) (03/29/18 09:00) Furosemide Tablet (Lasix Tablet) (03/29/18 09:00) Glimepiride Tablet (Amaryl Tablet) (03/29/18 06:30) Hydrocodone/Apap 5/325 Tablet (Lortab 5 (03/28/18 11:00) Loperamide Capsule (Imodium Capsule) (03/28/18 11:00) Melatonin Tablet (Melatonin Tablet) (03/28/18 11:00) Methimazole Tablet (Tapazole Tablet) (03/29/18 09:00) Insulin Aspart (Novolog) (Novolog (Charg (03/28/18 11:00) [place] 3 Capsule (Fish Oil Capsule) (03/28/18 13:00) Ondansetron Injection (Zofran Injectio (03/28/18 11:00) Pantoprazole Tablet (Protonix Tablet) (03/29/18 07:00) Sodium Chloride Flush (Catheter Flush Sy (03/28/18 11:00) Diphenhydramine Tablet (Benadryl Tablet) (03/28/18 11:00) Fentanyl Injection (Sublimaze Injection (03/28/18 11:00) Occupational Therapy Order (03/28/18 11:00) Physical Therapy [place] (03/28/18 11:00) Speech Therapy Orders (03/28/18 11:00) Admission-Acute Rehab Unit (03/28/18 11:00) Automatic Tray (03/28/18 12:36) Dys1 Pureed (03/28/18 Lunch) Tramadol Tablet (Ultram Tablet) (03/28/18 13:15) Tramadol Tablet (Ultram Tablet) (03/28/18 13:15) Patient Visit (03/28/18 ) Pt Eval Moderate Complexity (03/28/18 ) Gait Training, Ea 15 Min (03/28/18 ) Exercise Therap, Ea 15 Min (03/28/18 ) Patient Visit (03/28/18 ) Dysphagia Evaluation Std (03/28/18 ) Speech Sound Lang Comp (03/28/18 ) Patient Visit (03/28/18 ) Functional Activities, Ea 15 (03/28/18 ) Request Ot Evaluate & Treat (03/28/18 18:39) Speech Therapy Orders (03/28/18 18:39) Sequential Compression Device 08,20 (03/28/18 18:55) Dvt/Vte Risk - Notifiy Physici 08 (03/28/18 18:55) Patient Visit (03/29/18 ) Gait Training, Ea 15 Min (03/29/18 ) Rehab Nursing Orders: Ongoing Assess. of Cognitive Status, Ongoing Assess. of Function Status, Disease Management & Educaiton, Fall Prevention, Fluid/ Electrolyte/Nutrition Mgmt, Medication Management & Education, Nutrition Management, Patient/Family Support PT IPOC Problem List: Activity Tolerance, Functional Strength, Safety, Balance, Gait, Transfer, Bed Mobility Treatment Plan: Continue Plan of Care Bed Mobility, Education, Functional Activity Kristine, Functional Strength, Group Therapy, Gait, Safety, Therapeutic Exercise, Transfers Treatment Duration: Apr 19, 2018 Frequency: At least 5 of 7 days/Wk (IRF) Estimated Hrs Per Day: 1.5 hours per day OT IPOC Problems: Decreased Activ Tolerance, Decreased UE Strength, Dependent Transfers , Impaired Coordination, Impaired Funct Balance, Impaired I ADL's, Impaired Self -Care Skills OT Treatment, Training and Edu: Yes Plan of Care: ADL Retraining, Functional Mobility, Group Exercise/Act as Ind, UE Funct Exercise/Act, UE Neuromus Re-Ed/Coord, Visual/Perceptual Retrain Treatment Duration: Apr 18, 2018 Frequency: At least 5 of 7 days/Wk (IRF) Estimated Hrs Per Day: 1.[address] IPOC Speech Therapy Treatment Plan: Continue Plan of Care Treatment Duration: Apr 04, 2018 Frequency: 5 times per week Estimated Hrs Per Day: .25 hour per day Dietitian/[place] Technician Dietitian/[place] Technician to monitor nutritional status and make changes and/or recommendations as needed and work with speech pathology on dietary upgrades as the occur. Physician IPOC Medical Issues being managed closely and that require the 24 hour availability of a physician: Close monitoring of congestive heart failure and heart disease Monitoring of blood sugar to improve recovery Monitor of renal function Medical Issues: Falls Precautions, Fluid/Electrolyte/Nutrition Balance, Voice Protection Brief Synthesis of Preadmission Screen, Post-Admission Evaluation, and Therapy Evaluations: Speech therapy: Based on evaluation results the patient demonstrates mild- moderate receptive aphasia and a moderate to moderately severe expressive aphasia. PT: improved mobility and walks with gait belt and 1 assist OT working on impaired ADL skills Medical Prognosis: good Anticipated Length of Stay: 10 days GRISELDA SANTOS DO Mar 30, 2018 15:56
[2018-03-30 17:22] VITALS: BP 119/68
[2018-03-30] MEDS: ATORVASTATIN 80 MG (LIPITOR) TABLET PO SCH (20:57)
[2018-03-31 05:18] VITALS: BP 125/74
[2018-03-31] MEDS: GLIMEPIRIDE 4 MG (AMARYL) TAB PO SCH (06:02)
[2018-03-31] MEDS: PANTOPRAZOLE 20 MG TABLET (PROTONIX) PO SCH (06:02)
[2018-03-31] MEDS: inSUlin ASPART (NovoLOG) 1 UNIT/0.01 ML (CHARGE PER UNIT) SC SCH ×4 (06:04→21:00)
[2018-03-31 07:26] LABS: BASOPHILS % (AUTO) 0 % (0-10); EOSINOPHILS # (AUTO) 0.4 10^3/uL (0.0-0.3); EOSINOPHILS % (AUTO) 3 % (0-10); HEMATOCRIT 39 % (40-54); HEMOGLOBIN 13.2 G/DL (13.3-17.7); LYMPHOCYTES # (AUTO) 2.3 X 10^3 (1.0-4.0); LYMPHOCYTES % (AUTO) 22 % (12-44); MEAN CORPUSCULAR HGB CONC 34 G/DL (32-36); MEAN CORPUSCULAR VOLUME 87 FL (80-99); MEAN PLATELET VOLUME 12.2 FL (7.4-10.4); MONOCYTES # (AUTO) 1.1 X 10^3 (0.0-1.0); MONOCYTES % (AUTO) 11 % (0-12); NEUTROPHILS # (AUTO) 6.7 X 10^3 (1.8-7.8); NEUTROPHILS % (AUTO) 64 % (42-75); PLATELET COUNT 215 10^3/uL (130-400); RED BLOOD COUNT 4.48 10^6/uL (4.35-5.85); RED CELL DISTRIBUTION WIDTH 15.8 % (10.0-14.5); WHITE BLOOD COUNT 10.5 10^3/uL (4.3-11.0)
[2018-03-31 07:28] LABS: MEAN CORPUSCULAR HEMOGLOBIN 29 PG (25-34)
[2018-03-31 07:45] LABS: ALANINE AMINOTRANSFERASE 22 U/L (0-55); ALBUMIN 3.7 GM/DL (3.2-4.5); ALKALINE PHOSPHATASE 44 U/L (40-136); BILIRUBIN,TOTAL 0.5 MG/DL (0.1-1.0); BUN/CREATININE RATIO 20; CALCIUM 9.4 MG/DL (8.5-10.1); CARBON DIOXIDE 23 MMOL/L (21-32); CHLORIDE 106 MMOL/L (98-107); CREATININE SERUM 0.88 MG/DL (0.60-1.30); GFR ESTIMATED > 60; GLUCOSE 101 MG/DL (70-105); POTASSIUM 3.7 MMOL/L (3.6-5.0); SODIUM 140 MMOL/L (135-145); TOTAL PROTEIN 6.3 GM/DL (6.4-8.2)
--- NOTE | 2018-03-31 08:37 | PM&R Progress Note ---
Subjective This was a face to face visit with the patient. Date Seen by Provider: Mar 31, 2018 Time Seen by Provider: 08:15 Subjective/Events-last exam Patient was seen in his room when he was in bed Patient doing much better and able to walk with assistance Expressive aphasia continues and will continue speech therapy Pain is denied Checked meds and labs BP and HR well controlled Review of Systems Neurological: Weakness, Numbness, Incoordination, Change in speech Objective Physician Exam Last Set of Vital Signs Vital Signs Date Time Temp Pulse Resp B/P (MAP) Pulse Ox O2 Delivery O2 Flow Rate FiO2 03/31/18 05:18 98.0 61 18 125/74 (91) 92 Room Air Capillary Refill : I&O Intake and Output 03/31/18 00:00 Intake Total 3210 ml Output Total 600 ml Balance 2610 ml Intake Oral 3210 ml Output Urine Total 600 ml # Voids 5 General: Alert, Oriented X3, Cooperative, No Acute Distress HEENT: Atraumatic, PERRLA, EOMI, Mucous Memb Moist/[place] Neck: Supple, No JVD, No Thyromegaly, +2 Carotid Pulse No Bruit Lungs: Clear to Auscultation, Normal Air Movement Heart: Regular Rate, Normal S1, Normal S2, No Murmurs, Gallops Abdomen: Normal Bowel Sounds, Soft, No Tenderness, No Hepatosplenomegaly, No Masses Extremities: No Clubbing, No Cyanosis, No Edema, Normal Pulses, No Tenderness/ Swelling Skin: No Rashes, No Breakdown, No Significant Lesion Neuro: Sensation Intact, Other (right sided hemiparesis 1/5 upper and lower, global weakness, aphasia, facial droop left) Results Lab Data Laboratory Tests 03/28/18 12:29: Glucometer 104 03/28/18 16:50: Glucometer 128H 03/28/18 21:02: Glucometer 99 03/29/18 05:02: Glucometer 114H 03/29/18 12:36: Glucometer 129H 03/29/18 20:38: Glucometer 142H 03/30/18 06:02: Glucometer 116H 03/30/18 11:54: Glucometer 124H 03/30/18 16:57: Glucometer 161H 03/30/18 20:56: Glucometer 149H 03/31/18 06:03: Glucometer 127H 03/31/18 06:45: White Blood Count 10.5, Red Blood Count 4.48, Hemoglobin 13.2L, Hematocrit 39L, Mean Corpuscular Volume 87, Mean Corpuscular Hemoglobin 29, Mean Corpuscular Hemoglobin Concent 34, Red Cell Distribution Width 15.8H, Platelet Count 215, Mean Platelet Volume 12.2H, Neutrophils (%) (Auto) 64, Lymphocytes (%) (Auto) 22 , Monocytes (%) (Auto) 11, Eosinophils (%) (Auto) 3, Basophils (%) (Auto) 0, Neutrophils # (Auto) 6.7, Lymphocytes # (Auto) 2.3, Monocytes # (Auto) 1.1H, Eosinophils # (Auto) 0.4H, Basophils # (Auto) 0.0, Sodium Level 140, Potassium Level 3.7, Chloride Level 106, Carbon Dioxide Level 23, Anion Gap 11, Blood Urea Nitrogen 18, Creatinine 0.88, Estimat Glomerular Filtration Rate > 60, BUN/ Creatinine Ratio 20, Glucose Level 101, Calcium Level 9.4, Corrected Calcium 9.6 , Total Bilirubin 0.5, Aspartate Amino Transf (AST/SGOT) 22, Alanine Aminotransferase (ALT/SGPT) 22, Alkaline Phosphatase 44, Total Protein 6.3L, Albumin 3.7 Current Funtional Status Continue intensive therapies Dramatic improvement in all deficits Expressive aphasia will benefit from aggressive speech therapy Assessment/Plan Assessment and Plan (1) Cerebrovascular accident (CVA) with involvement of right side of body Status: Acute (2) ICD (implantable cardioverter-defibrillator) in place Status: Chronic (3) Situational depression Status: Acute (4) Pacemaker Status: Chronic (5) Aphasia Status: Acute (6) Hypertension Qualifiers: Qualified Codes: I10 - Essential (primary) hypertension Status: Chronic (7) Renal insufficiency Status: Chronic (8) Hyperlipidemia Qualifiers: Qualified Codes: E78.2 - Mixed hyperlipidemia Status: Chronic (9) CHF (congestive heart failure) Qualifiers: Qualified Codes: I50.22 - Chronic systolic (congestive) heart failure Status: Chronic (10) CAD (coronary artery disease) Qualifiers: Qualified Codes: I25.10 - Atherosclerotic heart disease of [place] coronary artery without angina pectoris Status: Chronic (11) Expressive aphasia Status: Acute (12) Diabetes mellitus Qualifiers: Qualified Codes: E11.59 - Type 2 diabetes mellitus with other circulatory complications Status: Chronic (13) COPD (chronic obstructive pulmonary disease) Qualifiers: Qualified Codes: J44.9 - Chronic obstructive pulmonary disease, unspecified Status: Chronic (14) Smoker Status: Chronic (15) Stented coronary artery Status: Chronic (16) Constipation Qualifiers: Qualified Codes: K59.01 - Slow transit constipation Status: Acute Co-Morbidities that are continuing to impact the rehab process: (include details ) GRISELDA SANTOS DO Mar 31, 2018 08:37
[2018-03-31 09:26] VITALS: BP 148/82
[2018-03-31] MEDS: AMIODARONE 200 MG (CORDARONE) TAB PO SCH (09:26)
[2018-03-31] MEDS: CARVEDILOL 6.25 MG (COREG) TAB PO SCH ×2 (09:27→22:22)
[2018-03-31] MEDS: METHIMAZOLE TABLET 5 MG TABLET PO SCH (09:27)
[2018-03-31] MEDS: VITAMIN D3 1,000 UNITS (CHOLECALCIFEROL) TABLET PO SCH (09:27)
[2018-03-31] MEDS: ENALAPRIL 2.5 MG (VASOTEC) TAB PO SCH (09:27)
[2018-03-31] MEDS: APIXABAN 5 MG (ELIQUIS) TABLET PO SCH ×2 (09:27→22:22)
[2018-03-31] MEDS: OMEGA 3 (FISH OIL) 1000 MG CAP PO SCH ×3 (09:27→22:22)
[2018-03-31] MEDS: DIGOXIN 0.125 MG (LANOXIN) TAB PO SCH (09:27)
[2018-03-31] MEDS: FUROSEMIDE 40 MG (LASIX) TAB PO SCH (09:27)
--- NOTE | 2018-03-31 09:56 | Physical Therapy Daily Note ---
PT Daily Note-Current Subjective Patient in therapy gym pre tx, agrees to PT, just got through with OT, no complaints of pain. Appearance Patient in recliner post tx with nurse tiffany melton nurse chinoe in the room changing bed, she states she will put patient in bed when she is done. Chair alarm on. Mental Status Patient Orientation: Person, Unable to Assess Transfers Therapy Code Descriptions/Definitions Functional [place] Measure: 0=Not Assessed/NA 4=Minimal Assistance 1=Total Assistance 5=Supervision or Setup 2=Maximal Assistance 6=Modified [place] 3=Moderate Assistance 7=Complete [place] Therapy Quality Codes: 6 Independent with activity with or without an assistive device 5 Patient requires set up or clean up by helper. Patient completes activity by themselves 4 Supervision or touching assist (CGA). [place] provide cues , steadying assist 3 The helper provides less than half the effort to complete the activity 2 The helper provides more than half the effort to complete the activity 1 Dependent. The helper does all the effort to complete an activity 7 Patient refused to complete or attempt activity 9 The patient did not perform the activity before the current illness or injury 88 Not attempted due to Medical conditions or safety concerns Transfers (B, C, W/C) (FIM): 4 Sit to/from Stand: 5 Bed to/from Chair: 4 Weight Bearing Right Lower Extremity: Right Full Weight Bearing Left Lower Extremity: Left Full Weight Bearing Gait Training Gait (FIM): 4 Distance: 200'x2, 150' Gait Level of Assist: 4 Gait Persons Needed: 1 Gait Assistive Device: None Patient ambulates briskly, toes out, wide stance, slightly unsteady but no LOB, right neglect. Exercises Standing: Step-ups Standing Reps: 15 NuStep Minutes: 15 NuStep Workload: 4 Neuromuscular balance activity finding cones (bending over, reaching, etc) Treatments transfers, ambulation, functional strengthening, balance training Assessment Current Status: Fair Progress slightly unsteady gait, left neglect, fall risk. PT Jail Goals Wireline Supervisor Goals PT Wireline Supervisor Goals Time Frame: Apr 19, 2018 Transfers (B,C,W/C) (FIM): 6 Sit to Lying (QC): 6 Lying-Sitting on Side/Bed(QC): 6 Sit to Stand (QC): 6 Rollin Roll Left to Right (QC): 6 Chair/Oyt-vl-Lehjc Xfer(QC): 6 Car Transfer (QC): 5 Does the Patient Walk: Yes Gait (FIM): 6 Gait distance (FIM): 3=150 ft Distance: 250' Walk 10 feet (QC): 6 Walk 10ft-Uneven Surface(QC): 6 Walk 50ft with 2 Turns (QC): 6 Walk 150 ft (QC): 6 Gait Level of Assist: 6 Gait Assistive Device: None Stairs (FIM): 2 # of Steps: 4 1 Step (curb) (QC): 4 4 Steps (QC): 4 12 Steps (QC): 9 Stairs Level Of Assist: 4 Picking up an Object (QC): 5 PT Plan Problem List Problem List: Activity Tolerance, Functional Strength, Safety, Balance, Gait, Transfer Treatment/Plan Treatment Plan: Continue Plan of Care Treatment Plan: Bed Mobility, Education, Functional Activity Kristine, Functional Strength, Group Therapy, Gait, Safety, Therapeutic Exercise, Transfers Treatment Duration: Apr 19, 2018 Frequency: At least 5 of 7 days/Wk (IRF) Estimated Hrs Per Day: 1.5 hours per day Patient and/or Family Agrees t: Yes Safety Risks/Education Patient Education: Gait Training, Transfer Techniques, Correct Positioning, Safety Issues Teaching Recipient: Patient Teaching Methods: Demonstration, Discussion Response to Teaching: Reinforcement Needed Time/GCodes Time In: 0900 Time Out: 0950 Total Billed Treatment Time: 50 Total Billed Treatment 1 visit NM 10' GT 20' EX 20' MALIA LITTLEJOHN PT Mar 31, 2018 09:56
--- NOTE | 2018-03-31 11:24 | NUR ---
most of edema with patient to complete initial assessment. Assessment information was difficult to catheter due to aphasia following a CVA. Per review of medical record patient resides at [facility] a assisted living in [place]. Patient confirms PCP as Dr. Hernandez. Primary contacts as brother, Don at [phone] and [id number], Pat at [phone]. Patient able to verify insurance as Medicare and [employer]. PEDIATRICS TEACHER will visit with family to learn of prior level of function. Due to further therapy needs progress will be evaluated at team conference on 04/02.
--- NOTE | 2018-03-31 12:55 | Occupational Ther Daily Note ---
OT Current Status-Daily Note Subjective Pt sleeping in bed, woke to name. Pt agrees to therapy. No c/o pain, aphasic. Mental Status/Objective Patient Orientation: Person, Non-Verbal/Aphasic, Situation Therapy Code Descriptions/Definitions Functional [place] Measure: 0=Not Assessed/NA 4=Minimal Assistance 1=Total Assistance 5=Supervision or Setup 2=Maximal Assistance 6=Modified [place] 3=Moderate Assistance 7=Complete [place] ADL-Treatment Pt declined shower. Did agree for sponge bath and change of clothing. Therapy Code Descriptions/Definitions Functional [place] Measure: 0=Not Assessed/NA 4=Minimal Assistance 1=Total Assistance 5=Supervision or Setup 2=Maximal Assistance 6=Modified [place] 3=Moderate Assistance 7=Complete [place] Therapy Quality Codes: 6 Independent with activity with or without an assistive device 5 Patient requires set up or clean up by helper. Patient completes activity by themselves 4 Supervision or touching assist (CGA). [place] provide cues , steadying assist 3 The helper provides less than half the effort to complete the activity 2 The helper provides more than half the effort to complete the activity 1 Dependent. The helper does all the effort to complete an activity 7 Patient refused to complete or attempt activity 9 The patient did not perform the activity before the current illness or injury 88 Not attempted due to Medical conditions or safety concerns Grooming (FIM): 5 (Close SBA at sink. Completed with verbal cues. ) Oral Hygiene (QC): 4 Upper Body (FIM): 4 (Assist to pull off of L UE. Assist to pull down in back. Pt able to thread arms and head through shirt.) Upper Body Dressing (QC): 3 Lower Body Dressing (FIM): 4 (Assist to thread R foot, pt able to pull up LE's and hike over hips. Assist to hook overalls.) Lower Body Dressing (QC): 3 Toileting (FIM): 5 (SBA in standing for pt to manipulate clothing. Completes rest when sitting on toilet.) Toileting Hygiene (QC): 4 Toilet/Commode Transfer (FIM): 4 (CGA no AE.) Toilet Transfer (QC): 3 Other Treatment Pt ambulates to therapy gym. Completed wt bearing with R UE. With 1 physical cue pt was able to bear wt through R UE and lock elbow then hold for 10 secs 5x' s. Active movement throughout R UE increasing. Unable to pinch or isolate digits, can extend and flex (not fisted). Wrist flex/ext noted against gravity. Pt was able to elevate, retract and protract shldrs. Shldr abd/add without resistance in horizontal plane. After therapy, pt sitting on therapy mat, PT took over care. All needs met. OT Short Term Goals Short Term Goals Time Frame: Apr 04, 2018 Grooming(FIM): 5 Bathing(FIM): 4 Upper Body Dressing(FIM): 4 Lower Body Dressing(FIM): 4 Toileting(FIM): 4 Additional Short Term Goals: 1-Demonstrate ADL Tasks, 2-Verbalize Understanding , 3-ImproveStrength/Kristine 1=Demonstrate adherence to instructed precautions during ADL tasks. 2=Patient will verbalize/demonstrate understanding of assistive devices/ modifications for ADL. 3=Patient will improve strength/tolerance for activity to enable patient to perform ADL's. OT Refinery Operator Coking Goals Refinery Operator Coking Goals Time Frame: Apr 18, 2018 Eating (FIM): 6 Eating (QC): 6 Groomin Oral Hygiene (QC): 6 Bathing(FIM): 5 Shower/Bathe Self (QC): 4 Upper Body Dressing(FIM): 6 Upper Body Dressing (QC): 6 Lower Body Dressing(FIM): 5 Lower Body Dressing (QC): 5 On/Off Footwear (QC): 5 Toileting(FIM): 6 Toileting Hygiene (QC): 6 Toilet/Commode Transfer(FIM): 6 Toilet/Commode Transfer (QC): 6 Shower Transfer(FIM): 5 Additional Goals: 1-Demonstrate ADL Tasks, 2-Verbalize Understanding, 3- ImproveStrength/Kristine 1=Demonstrate adherence to instructed precautions during ADL tasks. 2=Patient will verbalize/demonstrate understanding of assistive devices/ modifications for ADL. 3=Patient will improve strength/tolerance for activity to enable patient to perform ADL's. OT Education/Plan Discharge Recommendations Plan/Recommendations: Continue POC Treatment Plan/Plan of Care Patient would benefit from OT for education, treatment and training to promote independence in ADL's, mobility, safety and/or upper extremity function for ADL' s. Plan of Care: ADL Retraining, Functional Mobility, Group Exercise/Act as Ind, UE Funct Exercise/Act, UE Neuromus Re-Ed/Coord, Visual/Perceptual Retrain Treatment Duration: Apr 18, 2018 Frequency: At least 5 of 7 days/Wk (IRF) Estimated Hrs Per Day: 1.5 hours per day Agreement: Yes Rehab Potential: Fair Time/GCodes Start Time: 08:00 Stop Time: 09:00 Total Time Billed (hr/min): 60 Billed Treatment Time 1 visit-ADL 2 (30 min) NM 2 (30 min) SAIRA DURAN Mar 31, 2018 12:55
--- NOTE | 2018-03-31 15:14 | Therapy Group Daily Note ---
Therapy Daily Group Note Patient Education Topic Other List Below (ARU expectations/description, benefits of sleep) Exercises LE Seated Exercise, UE Exercise Other/Notes Pt participated in group therapy with 4:1 ratio. Goals of therapy are understanding ARU description/expectations and understanding the benefits of sleep. Pt ambulated to OT/PT group using FWW with CGA. Group consisted of introductions (name, place living, why are you here), socialization, UE/LE seated exercises, education for ARU description/expectations and understanding the benefits of sleep. Pt was able to introduce self with assistance, verbalized "Sidney" and gave permission for NIELSEN, by shaking head in affirmation, to state reason for being at [facility]. Pt actively listened to peers throughout session. Pt was able to acknowledge understanding of goals by raising hand for acknowledgement. Pt tolerated UE/LE seated exercises and completed without difficulty using self-ROM technique. Pt will benefit from topics discussed by increasing time slept and being able to fully engage in therapies. Pt ambulated to/from room then laid down in bed. Call light/phone in reach. Safety measures in place. Start Time: 13:00 Stop Time: 14:30 Total Billed Treatment Time: 90 Total Billed Treatment 1-GRP SAIRA DURAN Mar 31, 2018 15:14
--- NOTE | 2018-03-31 16:04 | Speech Therapy Daily Note ---
Speech Daily Progress Note Subjective Date Seen by Provider: Mar 31, 2018 Time Seen by Provider: 00:30 Patient was eating his lunch when I entered his room. Objective Patient completed compensatory strategy training for safe oral intake and OME with 70% accuracy given mod verbal and visual cuing. Assessment Assessment Current Status: Fair Progress Communication Comprehension: 4 Expression: 1 Social Cognition Social Interaction: 3 Problem Solvin Memory: 4 Speech Short Term Goals Short Term Goals Short Term Goals 1) Patient will tolerate least restrictive diet level without s/s of aspiration at 90% or greater. 2) Patient will utilize compensatory strategies as trained with 90% or greater. 3) Patient patient will complete various verbal expressive tasks ( confrontational naming, sentence completion, etc.) with 80% or greater. Speech Tank Tender Goals Tank Tender Goals Patient will maintain adequate nutrition/hydration via safe, effective swallow function. Patient will demonstrate increased auditory comprehension and verbal expression to be able to carry on a simple conversation with min assist. Speech-Plan Patient/Family Goals Patient/Family Goals: Patient plans to return to his assisted living facility upon discharge. Treatment Plan Speech Therapy Treatment Plan: Continue Plan of Care Patient is progressing due to skilled ST services. Treatment Duration: Apr 04, 2018 Frequency: 5 times per week Estimated Hrs Per Day: .25 hour per day Rehab Potential: Fair Barriers to Learning: Patient has residual cognitive deficit due to CVA. Pt/Family Agrees to Plan: Yes Safety Risks/Education Teaching Recipient: Patient Teaching Methods: Discussion Response to Teaching: Verbalize Understanding Education Topics Provided: Safety of oral intake. Time Speech Therapy Time In: 12:00 Speech Therapy Time Out: 12:30 Total Billed Time: 30 Billed Treatment Time 1, DEV eLal Mar 31, 2018 16:04
[2018-03-31 16:42] VITALS: BP 101/61
--- NOTE | 2018-03-31 19:36 | NUR ---
bedside report received from GALI EUBANKS, assume care of pt
--- NOTE | 2018-03-31 21:00 | NUR ---
assessments & interventions completed, see assessments & interventions, scored 12 on [facility] STROKE SCALE
[2018-03-31] MEDS: ATORVASTATIN 80 MG (LIPITOR) TABLET PO SCH (22:22)
[2018-04-01] MEDS: inSUlin ASPART (NovoLOG) 1 UNIT/0.01 ML (CHARGE PER UNIT) SC SCH ×4 (06:00→21:22)
[2018-04-01 06:26] VITALS: BP 104/65
[2018-04-01] MEDS: GLIMEPIRIDE 4 MG (AMARYL) TAB PO SCH (06:51)
[2018-04-01] MEDS: PANTOPRAZOLE 20 MG TABLET (PROTONIX) PO SCH (06:51)
--- NOTE | 2018-04-01 07:35 | NUR ---
bedside report given to ARIAN EUBANKS
--- NOTE | 2018-04-01 08:16 | Occupational Ther Daily Note ---
OT Current Status-Daily Note Subjective Pt alert, lying in bed. Pt agrees to therapy. No c/o pain. Mental Status/Objective Patient Orientation: Person, Place, Non-Verbal/Aphasic, Time, Situation Therapy Code Descriptions/Definitions Functional [place] Measure: 0=Not Assessed/NA 4=Minimal Assistance 1=Total Assistance 5=Supervision or Setup 2=Maximal Assistance 6=Modified [place] 3=Moderate Assistance 7=Complete [place] ADL-Treatment Pt stated " I need to use restroom". Pt then was able to demonstrate increase AROM with R UE. Minimal LOB noted throughout session. Therapy Code Descriptions/Definitions Functional [place] Measure: 0=Not Assessed/NA 4=Minimal Assistance 1=Total Assistance 5=Supervision or Setup 2=Maximal Assistance 6=Modified [place] 3=Moderate Assistance 7=Complete [place] Therapy Quality Codes: 6 Independent with activity with or without an assistive device 5 Patient requires set up or clean up by helper. Patient completes activity by themselves 4 Supervision or touching assist (CGA). [place] provide cues , steadying assist 3 The helper provides less than half the effort to complete the activity 2 The helper provides more than half the effort to complete the activity 1 Dependent. The helper does all the effort to complete an activity 7 Patient refused to complete or attempt activity 9 The patient did not perform the activity before the current illness or injury 88 Not attempted due to Medical conditions or safety concerns Bathing (FIM): 5 (Supervision for safety. Using grabbar, hand held shower and shower bench to complete. Assist to turn on/off water.) Bathing Location: L Arm, R Arm, L Upper Leg, R Upper Leg, L Lower Leg ( including foot), R Lower Leg (including foot), Chest, Abdomen, Buttocks, Perineal Area Shower/Bathe Self (QC): 4 Upper Body (FIM): 5 (Increased time to complete. Set up. Pt able to don/doff by self.) Upper Body Dressing (QC): 5 Lower Body Dressing (FIM): 4 (After set up, pt able to thread pants over feet, assist to hike over R hip. Educated pt with one-handed technique to don socks. Doffs by self.) Lower Body Dressing (QC): 3 On/Off Footwear (QC): 3 Toileting (FIM): 4 (Supervision for safety, assist to hike pants up over hips.) Toileting Hygiene (QC): 3 Transfers (B, C, W/C) (FIM): 4 (CGA for safety.) Toilet/Commode Transfer (FIM): 5 (Supervision for safety. Using grabbar for stability.) Toilet Transfer (QC): 4 Shower Transfer(FIM): 5 (Using grabbar and shower bench completes with SBA.) Other Treatment Pt ambulated to laundry to wash clothing then stated he has someone who does it. Pt then ambulated to [facility] and sat in chair. AROM with stabilization of hand and wrist. Pt then ambulated back to room and laid down in bed after therapy. Call light/phone in reach. All needs met in room. OT Short Term Goals Short Term Goals Time Frame: Apr 04, 2018 Grooming(FIM): 5 Bathing(FIM): 4 Upper Body Dressing(FIM): 4 Lower Body Dressing(FIM): 4 Toileting(FIM): 4 Additional Short Term Goals: 1-Demonstrate ADL Tasks, 2-Verbalize Understanding , 3-ImproveStrength/Kristine 1=Demonstrate adherence to instructed precautions during ADL tasks. 2=Patient will verbalize/demonstrate understanding of assistive devices/ modifications for ADL. 3=Patient will improve strength/tolerance for activity to enable patient to perform ADL's. OT Fishing Game Warden Goals Prison Goals Time Frame: Apr 18, 2018 Eating (FIM): 6 Eating (QC): 6 Groomin Oral Hygiene (QC): 6 Bathing(FIM): 5 Shower/Bathe Self (QC): 4 Upper Body Dressing(FIM): 6 Upper Body Dressing (QC): 6 Lower Body Dressing(FIM): 5 Lower Body Dressing (QC): 5 On/Off Footwear (QC): 5 Toileting(FIM): 6 Toileting Hygiene (QC): 6 Toilet/Commode Transfer(FIM): 6 Toilet/Commode Transfer (QC): 6 Shower Transfer(FIM): 5 Additional Goals: 1-Demonstrate ADL Tasks, 2-Verbalize Understanding, 3- ImproveStrength/Kristine 1=Demonstrate adherence to instructed precautions during ADL tasks. 2=Patient will verbalize/demonstrate understanding of assistive devices/ modifications for ADL. 3=Patient will improve strength/tolerance for activity to enable patient to perform ADL's. OT Education/Plan Discharge Recommendations Plan/Recommendations: Continue POC Treatment Plan/Plan of Care Patient would benefit from OT for education, treatment and training to promote independence in ADL's, mobility, safety and/or upper extremity function for ADL' s. Plan of Care: ADL Retraining, Functional Mobility, Group Exercise/Act as Ind, UE Funct Exercise/Act, UE Neuromus Re-Ed/Coord, Visual/Perceptual Retrain Treatment Duration: Apr 18, 2018 Frequency: At least 5 of 7 days/Wk (IRF) Estimated Hrs Per Day: 1.5 hours per day Agreement: Yes Rehab Potential: Fair Time/GCodes Start Time: 08:00 Stop Time: 09:00 Total Time Billed (hr/min): 60 Billed Treatment Time 1 visit-ADL 4 (60 min) SAIRA DURAN Apr 01, 2018 08:16
--- NOTE | 2018-04-01 09:04 | PM&R Progress Note ---
Subjective HPI/CC On Admission Date Seen by Provider: Apr 01, 2018 Time Seen by Provider: 08:15 Subjective/Events-last exam Patient doing very well Was able to lift his right arm today which is thrilling for occupational therapist Expressive aphasia continues to speech therapy will aggressively treat him Able to walk around and do well without fall risk Overall feels like he is doing very well and participating in therapies No voiding or bowel issues but he did ask for a laxative today Review of Systems General: Fatigue Neurological: Weakness, Numbness, Incoordination, Change in speech Objective Exam Vital Signs Vital Signs Date Time Temp Pulse Resp B/P (MAP) Pulse Ox O2 Delivery O2 Flow Rate FiO2 04/01/18 20:41 60 109/66 (80) 04/01/18 16:57 96.2 14 95 Room Air Capillary Refill : General Appearance: No Apparent Distress, WD/WN, Chronically ill Respiratory: Chest Non Tender, Lungs Clear, Normal Breath Sounds, No Accessory Muscle Use, No Respiratory Distress Cardiovascular: Regular Rate, Rhythm, No Edema, No Gallop, No JVD, No Murmur, Normal Peripheral Pulses Neurologic/Psychiatric: Alert, Oriented x3, Normal Mood/Affect, Motor Weakness (improved right arm) Results/Procedures Lab Patient resulted labs reviewed. 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 aphasia with improved right upper and lower extremity function now but expressive aphasia no significant changes yet CAD s/p stents in the past Congestive heart failure chronic systolic dysfunction ejection fraction 35 percent Status post ICD implanted by Dr Raphael at [facility] Paroxysmal atrial fibrillation status post cardioversion not on anticoagulation Carotid artery stenosis status post left CEA COPD Cigar smoker Hypertension Hyperlipidemia Diabetes mellitus Situational depression Constipation Plan: Continue therapies Bowel and bladder maintenance of routine Appreciate cardiology management for complex cardiac history Improving strength on the right side so improving the ability to assist in ADLs May need behavioral health to evaluate depression since it may interfere with his therapies and progression BM regimen Diagnosis/Problems Diagnosis/Problems (1) Cerebrovascular accident (CVA) with involvement of right side of body Status: Acute (2) ICD (implantable cardioverter-defibrillator) in place Status: Chronic (3) Situational depression Status: Acute (4) Pacemaker Status: Chronic (5) Aphasia Status: Acute (6) Hypertension Status: Chronic Qualifiers: Hypertension type: essential hypertension Qualified Codes: I10 - Essential (primary) hypertension (7) Renal insufficiency Status: Chronic (8) Hyperlipidemia Status: Chronic Qualifiers: Hyperlipidemia type: mixed hyperlipidemia Qualified Codes: E78.2 - Mixed hyperlipidemia (9) CHF (congestive heart failure) Status: Chronic Qualifiers: Heart failure type: systolic Heart failure chronicity: chronic Qualified Codes: I50.22 - Chronic systolic (congestive) heart failure (10) CAD (coronary artery disease) Status: Chronic Qualifiers: Coronary Disease-Associated Artery/Lesion type: [place] artery [place] vs. transplanted heart: [place] heart Associated angina: without angina Qualified Codes: I25.10 - Atherosclerotic heart disease of [place] coronary artery without angina pectoris (11) Expressive aphasia Status: Acute (12) Diabetes mellitus Status: Chronic Qualifiers: Diabetes mellitus type: type 2 Diabetes mellitus senior care insulin use: without senior care use Diabetes mellitus complication status: with circulatory complication Diabetes mellitus complication detail: with other circulatory complications Qualified Codes: E11.59 - Type 2 diabetes mellitus with other circulatory complications (13) COPD (chronic obstructive pulmonary disease) Status: Chronic Qualifiers: COPD type: unspecified COPD Qualified Codes: J44.9 - Chronic obstructive pulmonary disease, unspecified (14) Smoker Status: Chronic (15) Stented coronary artery Status: Chronic (16) Constipation Status: Acute Qualifiers: Constipation type: slow transit constipation Qualified Codes: K59.01 - Slow transit constipation Clinical Quality Measures Admission Status Admission Dx Assessment: 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 aphasia CAD s/p stents in the past Congestive heart failure chronic systolic dysfunction ejection fraction 35 percent Status post ICD implanted by Dr Raphael at [facility] Paroxysmal atrial fibrillation status post cardioversion not on anticoagulation Carotid artery stenosis status post left CEA COPD Cigar smoker Hypertension Hyperlipidemia Diabetes mellitus Situational depression Plan: Continue therapies Bowel and bladder maintenance of routine Appreciate cardiology management for complex cardiac history Improving strength on the right side so improving the ability to assist in ADLs May need behavioral health to evaluate depression since it may interfere with his therapies and progression DVT/VTE Risk/Contraindication: Risk Factor Score Per Nursin RFS Level Per Nursing on Admit: 4+=Very High GRISELDA SANTOS DO Apr 01, 2018 09:04
--- NOTE | 2018-04-01 09:56 | Physical Therapy Daily Note ---
PT Daily Note-Current Subjective Patient in bed pre tx, agrees to PT, no complaint of pain. Appearance Patient in bed post tx with nurse call, phone, tray, all needs met. Mental Status Patient Orientation: Person, Unable to Assess, Non-Verbal/Aphasic Transfers Therapy Code Descriptions/Definitions Functional [place] Measure: 0=Not Assessed/NA 4=Minimal Assistance 1=Total Assistance 5=Supervision or Setup 2=Maximal Assistance 6=Modified [place] 3=Moderate Assistance 7=Complete [place] Therapy Quality Codes: 6 Independent with activity with or without an assistive device 5 Patient requires set up or clean up by helper. Patient completes activity by themselves 4 Supervision or touching assist (CGA). [place] provide cues , steadying assist 3 The helper provides less than half the effort to complete the activity 2 The helper provides more than half the effort to complete the activity 1 Dependent. The helper does all the effort to complete an activity 7 Patient refused to complete or attempt activity 9 The patient did not perform the activity before the current illness or injury 88 Not attempted due to Medical conditions or safety concerns Transfers (B, C, W/C) (FIM): 6 Scootin Rollin Supine to/from Sit: 6 Sit to/from Stand: 6 Bed to/from Chair: 6 Weight Bearing Right Lower Extremity: Right Full Weight Bearing Left Lower Extremity: Left Full Weight Bearing Gait Training Gait (FIM): 5 Distance: 400', 150' Gait Level of Assist: 5 Gait Persons Needed: 1 Gait Assistive Device: None Some unsteadiness but no LOB. Patient ambulates with a wide base of support and bilateral hip external rotation. Exercises LAQ alternating with 2# on right leg for 5 min, step ups x15 each side NuStep Minutes: 4 NuStep Workload: 1 Neuromuscular side stepping 50', marching 50' Treatments bed mobility and transfers, ambulation, functional strengthening, balance training Assessment Current Status: Fair Progress improving balance during ambulation and endurance PT Microbiology Quality Control Technician Goals Snf Goals PT Snf Goals Time Frame: Apr 19, 2018 Transfers (B,C,W/C) (FIM): 6 Sit to Lying (QC): 6 Lying-Sitting on Side/Bed(QC): 6 Sit to Stand (QC): 6 Rollin Roll Left to Right (QC): 6 Chair/Izp-et-Mioix Xfer(QC): 6 Car Transfer (QC): 5 Does the Patient Walk: Yes Gait (FIM): 6 Gait distance (FIM): 3=150 ft Distance: 250' Walk 10 feet (QC): 6 Walk 10ft-Uneven Surface(QC): 6 Walk 50ft with 2 Turns (QC): 6 Walk 150 ft (QC): 6 Gait Level of Assist: 6 Gait Assistive Device: None Stairs (FIM): 2 # of Steps: 4 1 Step (curb) (QC): 4 4 Steps (QC): 4 12 Steps (QC): 9 Stairs Level Of Assist: 4 Picking up an Object (QC): 5 PT Plan Problem List Problem List: Activity Tolerance, Functional Strength, Safety, Balance, Gait, Transfer Treatment/Plan Treatment Plan: Continue Plan of Care Treatment Plan: Bed Mobility, Education, Functional Activity Kristine, Functional Strength, Group Therapy, Gait, Safety, Therapeutic Exercise, Transfers Treatment Duration: Apr 19, 2018 Frequency: At least 5 of 7 days/Wk (IRF) Estimated Hrs Per Day: 1.5 hours per day Patient and/or Family Agrees t: Yes Safety Risks/Education Patient Education: Gait Training, Transfer Techniques, Correct Positioning, Safety Issues Teaching Recipient: Patient Teaching Methods: Demonstration, Discussion Response to Teaching: Reinforcement Needed Time/GCodes Time In: 900 Time Out: 1000 Total Billed Treatment Time: 60 Total Billed Treatment 1 visit EX 30', GT 30' MALIA LITTLEJOHN PT Apr 01, 2018 09:56
[2018-04-01] MEDS: DIGOXIN 0.125 MG (LANOXIN) TAB PO SCH (10:02)
[2018-04-01] MEDS: CARVEDILOL 6.25 MG (COREG) TAB PO SCH ×2 (10:03→20:42)
[2018-04-01] MEDS: METHIMAZOLE TABLET 5 MG TABLET PO SCH (10:03)
[2018-04-01] MEDS: ENALAPRIL 2.5 MG (VASOTEC) TAB PO SCH (10:03)
[2018-04-01] MEDS: FUROSEMIDE 40 MG (LASIX) TAB PO SCH (10:03)
[2018-04-01] MEDS: OMEGA 3 (FISH OIL) 1000 MG CAP PO SCH ×3 (10:04→20:42)
[2018-04-01] MEDS: AMIODARONE 200 MG (CORDARONE) TAB PO SCH (10:04)
[2018-04-01] MEDS: VITAMIN D3 1,000 UNITS (CHOLECALCIFEROL) TABLET PO SCH (10:04)
[2018-04-01] MEDS: APIXABAN 5 MG (ELIQUIS) TABLET PO SCH ×2 (10:06→20:42)
--- NOTE | 2018-04-01 10:45 | NUR ---
Pastoral Care Vinegar Maker.
--- NOTE | 2018-04-01 11:50 | Cardiology Progress Note ---
Subjective Date Seen by Provider: Apr 01, 2018 Time Seen by Provider: 11:49 Subjective/Events-last exam patient is laying down in bed, still having right-sided weakness and aphasia. No new complaint Review of Systems General: No Chills, No Night Sweats, No Fatigue, No Malaise, No Appetite, No Other HEENT: No Head Aches, No Visual Changes, No Eye Pain, No Ear Pain, No Dysphasia , No Sinus Congestion, No Post Nasal Drip, No Sore Throat, No Other Pulmonary: No Dyspnea, No Cough, No Pleuritic Chest Pain, No Other Cardiovascular: No: Chest Pain, Palpitations, Orthopnea, Paroxysmal Noc. Dyspnea, Edema, Lt Headedness, Other Objective-Cardiology Exam Last Set of Vital Signs Vital Signs 04/01/18 04/01/18 06:26 09:00 Temp 99.1 Pulse 61 Resp 14 B/P (MAP) 104/65 (78) Pulse Ox 93 O2 Delivery Room Air Capillary Refill : I&O Intake and Output 04/01/18 00:00 Intake Total 810 ml Output Total 200 ml Balance 610 ml Intake Oral 810 ml Output Urine Total 200 ml # Voids 4 # Bowel Movements 2 General: Alert, Oriented X3, Cooperative, No Acute Distress HEENT: Atraumatic, PERRLA, EOMI, Mucous Memb Moist/[place] Neck: Supple, No JVD, No Thyromegaly, +2 Carotid Pulse No Bruit Lungs: Clear to Auscultation, Normal Air Movement Heart: Regular Rate, Normal S1, Normal S2, No Murmurs, Gallops Abdomen: Normal Bowel Sounds, Soft, No Tenderness, No Hepatosplenomegaly, No Masses Extremities: No Clubbing, No Cyanosis, No Edema, Normal Pulses, No Tenderness/ Swelling Skin: No Rashes, No Breakdown, No Significant Lesion Neuro: Sensation Intact, Other (right sided hemiparesis 1/5 upper and lower, global weakness, aphasia, facial droop left) Results Lab Laboratory Tests Test 03/31/18 16:46 03/31/18 20:56 04/01/18 05:54 Range/Units Glucometer 124 H 157 H 90 70-110 MG/DL A/P-Cardiology Admission Diagnosis CVA Coronary artery disease Congestive heart failure, chronic compensated left ventricular systolic dysfunction, nonischemic cardiomyopathy Hypertension Assessment/Plan 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 Raphael, planning to evaluate DELMY History of paroxysmal atrial fibrillation, had cardioversion, was not maintained on oral anticoagulation, was maintained on aspirin 81 mg daily and he was followed by [facility] cardiology, Dr Raphael and maintained on amiodarone Coronary artery disease, cardiac catheterization done on April 13, 2015 revealed total occlusion of large dominant right coronary artery with collateral filling the distal right from the left side. Total occlusion of the mid proper circumflex artery, small artery receiving collateral from left anterior descending. 40-50 percent mid LAD stenosis. Nonobstructive disease. EF 30 percent, he was referred to had 4 stents overlapping in the right coronary artery done in April 2015, returned in October 2015 and had intervention to the posterior lateral branch, had a cardiac catheterization done at in June 2017 reported as patent stent in the right coronary artery and right posterior descending artery. Chronically occluded obtuse marginal branch that did not change compared to the previous study. Conservative management was recommended Congestive heart failure, chronic compensated LV dysfunction; had an echocardiogram done at and reported to have ejection fraction 35 percent, Planning to evaluate DELMY Status post ICD implanted by Dr. Sanjay Raphael, [employer] (h/o sudden cardiac and ventricular tachycardia) managed and followed at Carotid artery stenosis status post left CEA in 2011. Carotid u/s at Dr Rosenberg's in Dec 2017 showed 1-39% bilat ICA stenoses COPD, still smoking one cigar a day Hypertension, monitor blood pressure Hyperlipidemia, monitor Lipids Diabetes mellitus-managed by primary care physician Clinical Quality Measures DVT/VTE Risk/Contraindication: Risk Factor Score Per Nursin RFS Level Per Nursing on Admit: 4+=Very High TAYLOR ROSENBERG MD Apr 01, 2018 11:50
--- NOTE | 2018-04-01 12:38 | Speech Therapy Daily Note ---
Speech Daily Progress Note Subjective Date Seen by Provider: Apr 01, 2018 Time Seen by Provider: 00:30 Patient was eating his lunch when I entered his room. Objective Patient completed utilization of compensatory strategies as trained at 75% accuracy given mod verbal cues. Assessment Assessment Current Status: Good Progress Treatment Plan Continue Plan of Care Communication Comprehension: 4 Expression: 1 Social Cognition Social Interaction: 3 Problem Solvin Memory: 4 Speech Short Term Goals Short Term Goals Short Term Goals 1) Patient will tolerate least restrictive diet level without s/s of aspiration at 90% or greater. 2) Patient will utilize compensatory strategies as trained with 90% or greater. 3) Patient patient will complete various verbal expressive tasks ( confrontational naming, sentence completion, etc.) with 80% or greater. Speech Host Goals Halfway Goals Patient will maintain adequate nutrition/hydration via safe, effective swallow function. Patient will demonstrate increased auditory comprehension and verbal expression to be able to carry on a simple conversation with min assist. Speech-Plan Patient/Family Goals Patient/Family Goals: Patient plans to return to his assisted living facility post rehab. Treatment Plan Speech Therapy Treatment Plan: Continue Plan of Care Patient was able to express phrases today. Treatment Duration: Apr 04, 2018 Frequency: 5 times per week Estimated Hrs Per Day: .25 hour per day Rehab Potential: Fair Barriers to Learning: Aphasia Pt/Family Agrees to Plan: Yes Safety Risks/Education Teaching Recipient: Patient Teaching Methods: Discussion Response to Teaching: Verbalize Understanding Education Topics Provided: Safety of oral intake. Time Speech Therapy Time In: 12:00 Speech Therapy Time Out: 12:30 Total Billed Time: 30 Billed Treatment Time 1JEOVANY BETH[address] ST Apr 01, 2018 12:38
--- NOTE | 2018-04-01 12:46 | Occupational Ther Daily Note ---
OT Current Status-Daily Note Subjective Pt alert, lying in bed. Pt agrees to therapy. No c/o pain at this time. Mental Status/Objective Patient Orientation: Person, Place, Non-Verbal/Aphasic, Time, Situation Therapy Code Descriptions/Definitions Functional [place] Measure: 0=Not Assessed/NA 4=Minimal Assistance 1=Total Assistance 5=Supervision or Setup 2=Maximal Assistance 6=Modified [place] 3=Moderate Assistance 7=Complete [place] ADL-Treatment Therapy Code Descriptions/Definitions Functional [place] Measure: 0=Not Assessed/NA 4=Minimal Assistance 1=Total Assistance 5=Supervision or Setup 2=Maximal Assistance 6=Modified [place] 3=Moderate Assistance 7=Complete [place] Therapy Quality Codes: 6 Independent with activity with or without an assistive device 5 Patient requires set up or clean up by helper. Patient completes activity by themselves 4 Supervision or touching assist (CGA). [place] provide cues , steadying assist 3 The helper provides less than half the effort to complete the activity 2 The helper provides more than half the effort to complete the activity 1 Dependent. The helper does all the effort to complete an activity 7 Patient refused to complete or attempt activity 9 The patient did not perform the activity before the current illness or injury 88 Not attempted due to Medical conditions or safety concerns Other Treatment AAROM completed in supine. Pt able to complete self-ROM with UE 10x each. C/o discomfort anterior R shldr and medial/lateral edges of scapula. Stretch and massage to areas. Decreased pain with movement after stretch and massage. After therapy, pt lying in bed with call light/phone in reach. All needs met in room. OT Short Term Goals Short Term Goals Time Frame: Apr 04, 2018 Grooming(FIM): 5 Bathing(FIM): 4 Upper Body Dressing(FIM): 4 Lower Body Dressing(FIM): 4 Toileting(FIM): 4 Additional Short Term Goals: 1-Demonstrate ADL Tasks, 2-Verbalize Understanding , 3-ImproveStrength/Kristine 1=Demonstrate adherence to instructed precautions during ADL tasks. 2=Patient will verbalize/demonstrate understanding of assistive devices/ modifications for ADL. 3=Patient will improve strength/tolerance for activity to enable patient to perform ADL's. OT Ginseng Farmer Goals Correction Goals Time Frame: Apr 18, 2018 Eating (FIM): 6 Eating (QC): 6 Groomin Oral Hygiene (QC): 6 Bathing(FIM): 5 Shower/Bathe Self (QC): 4 Upper Body Dressing(FIM): 6 Upper Body Dressing (QC): 6 Lower Body Dressing(FIM): 5 Lower Body Dressing (QC): 5 On/Off Footwear (QC): 5 Toileting(FIM): 6 Toileting Hygiene (QC): 6 Toilet/Commode Transfer(FIM): 6 Toilet/Commode Transfer (QC): 6 Shower Transfer(FIM): 5 Additional Goals: 1-Demonstrate ADL Tasks, 2-Verbalize Understanding, 3- ImproveStrength/Kristine 1=Demonstrate adherence to instructed precautions during ADL tasks. 2=Patient will verbalize/demonstrate understanding of assistive devices/ modifications for ADL. 3=Patient will improve strength/tolerance for activity to enable patient to perform ADL's. OT Education/Plan Discharge Recommendations Plan/Recommendations: Continue POC Treatment Plan/Plan of Care Patient would benefit from OT for education, treatment and training to promote independence in ADL's, mobility, safety and/or upper extremity function for ADL' s. Plan of Care: ADL Retraining, Functional Mobility, Group Exercise/Act as Ind, UE Funct Exercise/Act, UE Neuromus Re-Ed/Coord, Visual/Perceptual Retrain Treatment Duration: Apr 18, 2018 Frequency: At least 5 of 7 days/Wk (IRF) Estimated Hrs Per Day: 1.5 hours per day Agreement: Yes Rehab Potential: Fair Time/GCodes Start Time: 12:30 Stop Time: 12:45 Total Time Billed (hr/min): 15 Billed Treatment Time 1 visit-NM 1 (15 min) SAIRA DURAN Apr 01, 2018 12:46
--- NOTE | 2018-04-01 14:58 | Physical Therapy Daily Note ---
PT Daily Note-Current Subjective Patient in bed pre tx, agrees to PT, has no complaints of pain. Appearance Patient in bed post tx with nurse call, phone, tray, all needs met. Mental Status Patient Orientation: Person, Unable to Assess, Non-Verbal/Aphasic Transfers Therapy Code Descriptions/Definitions Functional [place] Measure: 0=Not Assessed/NA 4=Minimal Assistance 1=Total Assistance 5=Supervision or Setup 2=Maximal Assistance 6=Modified [place] 3=Moderate Assistance 7=Complete [place] Therapy Quality Codes: 6 Independent with activity with or without an assistive device 5 Patient requires set up or clean up by helper. Patient completes activity by themselves 4 Supervision or touching assist (CGA). [place] provide cues , steadying assist 3 The helper provides less than half the effort to complete the activity 2 The helper provides more than half the effort to complete the activity 1 Dependent. The helper does all the effort to complete an activity 7 Patient refused to complete or attempt activity 9 The patient did not perform the activity before the current illness or injury 88 Not attempted due to Medical conditions or safety concerns Transfers (B, C, W/C) (FIM): 6 Scootin Rollin Supine to/from Sit: 6 Sit to/from Stand: 6 Bed to/from Chair: 6 Weight Bearing Right Lower Extremity: Right Full Weight Bearing Left Lower Extremity: Left Full Weight Bearing Gait Training Gait (FIM): 5 Distance: 500'x2 Gait Level of Assist: 5 Gait Persons Needed: 1 Gait Assistive Device: None Attempted to get patient to use a single point cane during ambulation but he refused. Patient ambulates with occasional unsteadiness but no LOB, wide base of support. Treatments bed mobility and transfers, ambulation Assessment Current Status: Fair Progress Improving ambulation PT Detention Goals Hydrography Teacher Goals PT Detention Goals Time Frame: Apr 19, 2018 Transfers (B,C,W/C) (FIM): 6 Sit to Lying (QC): 6 Lying-Sitting on Side/Bed(QC): 6 Sit to Stand (QC): 6 Rollin Roll Left to Right (QC): 6 Chair/Raa-tb-Eixpl Xfer(QC): 6 Car Transfer (QC): 5 Does the Patient Walk: Yes Gait (FIM): 6 Gait distance (FIM): 3=150 ft Distance: 250' Walk 10 feet (QC): 6 Walk 10ft-Uneven Surface(QC): 6 Walk 50ft with 2 Turns (QC): 6 Walk 150 ft (QC): 6 Gait Level of Assist: 6 Gait Assistive Device: None Stairs (FIM): 2 # of Steps: 4 1 Step (curb) (QC): 4 4 Steps (QC): 4 12 Steps (QC): 9 Stairs Level Of Assist: 4 Picking up an Object (QC): 5 PT Plan Problem List Problem List: Activity Tolerance, Functional Strength, Safety, Balance, Gait, Transfer, Bed Mobility Treatment/Plan Treatment Plan: Continue Plan of Care Treatment Plan: Bed Mobility, Education, Functional Activity Kristine, Functional Strength, Group Therapy, Gait, Safety, Therapeutic Exercise, Transfers Treatment Duration: Apr 19, 2018 Frequency: At least 5 of 7 days/Wk (IRF) Estimated Hrs Per Day: 1.5 hours per day Patient and/or Family Agrees t: Yes Safety Risks/Education Patient Education: Gait Training, Transfer Techniques, Correct Positioning, Safety Issues Teaching Recipient: Patient Teaching Methods: Demonstration, Discussion Response to Teaching: Reinforcement Needed Time/GCodes Time In: 1430 Time Out: 1445 Total Billed Treatment Time: 15 Total Billed Treatment 1 visit GT 15' MALIA LITTLEJOHN PT Apr 01, 2018 14:58
[2018-04-01 16:57] VITALS: BP 106/63
[2018-04-01 20:41] VITALS: BP 109/66
[2018-04-01] MEDS: ATORVASTATIN 80 MG (LIPITOR) TABLET PO SCH (20:42)
[2018-04-02] MEDS: PANTOPRAZOLE 20 MG TABLET (PROTONIX) PO SCH (05:34)
[2018-04-02] MEDS: GLIMEPIRIDE 4 MG (AMARYL) TAB PO SCH (05:34)
[2018-04-02] MEDS: inSUlin ASPART (NovoLOG) 1 UNIT/0.01 ML (CHARGE PER UNIT) SC SCH ×4 (05:34→20:06)
[2018-04-02 06:00] VITALS: BP 106/68
--- NOTE | 2018-04-02 08:00 | Occupational Ther Daily Note ---
OT Current Status-Daily Note Subjective Pt sleeping in bed, woke easily. Pt agree to therapy. No c/o pain at this time. Mental Status/Objective Patient Orientation: Person, Place, Non-Verbal/Aphasic, Time, Situation Therapy Code Descriptions/Definitions Functional [place] Measure: 0=Not Assessed/NA 4=Minimal Assistance 1=Total Assistance 5=Supervision or Setup 2=Maximal Assistance 6=Modified [place] 3=Moderate Assistance 7=Complete [place] ADL-Treatment Pt able to complete lower body dressing with SBA after set up. Pt to go to procedure at 0800. Therapy Code Descriptions/Definitions Functional [place] Measure: 0=Not Assessed/NA 4=Minimal Assistance 1=Total Assistance 5=Supervision or Setup 2=Maximal Assistance 6=Modified [place] 3=Moderate Assistance 7=Complete [place] Therapy Quality Codes: 6 Independent with activity with or without an assistive device 5 Patient requires set up or clean up by helper. Patient completes activity by themselves 4 Supervision or touching assist (CGA). [place] provide cues , steadying assist 3 The helper provides less than half the effort to complete the activity 2 The helper provides more than half the effort to complete the activity 1 Dependent. The helper does all the effort to complete an activity 7 Patient refused to complete or attempt activity 9 The patient did not perform the activity before the current illness or injury 88 Not attempted due to Medical conditions or safety concerns Lower Body Dressing (FIM): 5 Lower Body Dressing (QC): 4 Other Treatment Pt ambulated to therapy gym to complete UE exercises to increase AROM of R UE and R side awareness. Pt has demonstrated increased AROM with R UE. Arm bike completed with R UE for 2 min with assist at elbow for gravity eliminated resistance. Pt able to complete with loose grasp, hand fell off 3x's and pt place back on. Pt then was able to lift R UE and place on robles bag to move across body, ABD/ADD, by sliding with R hand in loose grasp. Pt ambulated to therapy mat to complete AROM with R UE, assist only to guide R UE in correct motion, 10x's each. Massage and stretch to R shldr and hand. Pt ambulated back to room and laid down in bed for nrsg to prep for procedure. All needs met in room. OT Short Term Goals Short Term Goals Time Frame: Apr 04, 2018 Grooming(FIM): 5 Bathing(FIM): 4 Upper Body Dressing(FIM): 4 Lower Body Dressing(FIM): 4 Toileting(FIM): 4 Additional Short Term Goals: 1-Demonstrate ADL Tasks, 2-Verbalize Understanding , 3-ImproveStrength/Kristine 1=Demonstrate adherence to instructed precautions during ADL tasks. 2=Patient will verbalize/demonstrate understanding of assistive devices/ modifications for ADL. 3=Patient will improve strength/tolerance for activity to enable patient to perform ADL's. OT Container Washer Goals Jail Goals Time Frame: Apr 18, 2018 Eating (FIM): 6 Eating (QC): 6 Groomin Oral Hygiene (QC): 6 Bathing(FIM): 5 Shower/Bathe Self (QC): 4 Upper Body Dressing(FIM): 6 Upper Body Dressing (QC): 6 Lower Body Dressing(FIM): 5 Lower Body Dressing (QC): 5 On/Off Footwear (QC): 5 Toileting(FIM): 6 Toileting Hygiene (QC): 6 Toilet/Commode Transfer(FIM): 6 Toilet/Commode Transfer (QC): 6 Shower Transfer(FIM): 5 Additional Goals: 1-Demonstrate ADL Tasks, 2-Verbalize Understanding, 3- ImproveStrength/Kristine 1=Demonstrate adherence to instructed precautions during ADL tasks. 2=Patient will verbalize/demonstrate understanding of assistive devices/ modifications for ADL. 3=Patient will improve strength/tolerance for activity to enable patient to perform ADL's. OT Education/Plan Discharge Recommendations Plan/Recommendations: Continue POC Treatment Plan/Plan of Care Patient would benefit from OT for education, treatment and training to promote independence in ADL's, mobility, safety and/or upper extremity function for ADL' s. Plan of Care: ADL Retraining, Functional Mobility, Group Exercise/Act as Ind, UE Funct Exercise/Act, UE Neuromus Re-Ed/Coord, Visual/Perceptual Retrain Treatment Duration: Apr 18, 2018 Frequency: At least 5 of 7 days/Wk (IRF) Estimated Hrs Per Day: 1.5 hours per day Agreement: Yes Rehab Potential: Fair Time/GCodes Start Time: 06:45 Stop Time: 08:00 Total Time Billed (hr/min): 75 Billed Treatment Time 1 visit-ADL 2 (23 min) NM 3 (52 min) SAIRA DURAN Apr 02, 2018 08:00
--- NOTE | 2018-04-02 08:47 | PM&R Progress Note ---
Subjective This was a face to face visit with the patient. Date Seen by Provider: Apr 02, 2018 Time Seen by Provider: 08:00 Subjective/Events-last exam Patient was seen in his room in bed Right arm improved DELMY today per Cards Improved from admit a tremendous amount Expressive aphasia still an issue Objective Physician Exam Last Set of Vital Signs Vital Signs Date Time Temp Pulse Resp B/P (MAP) Pulse Ox O2 Delivery O2 Flow Rate FiO2 04/02/18 06:00 97.6 68 20 106/68 (81) 97 Room Air Capillary Refill : I&O Intake and Output 04/02/18 00:00 Intake Total 1290 ml Balance 1290 ml Intake Oral 1290 ml # Voids 5 # Bowel Movements 2 General: Alert, Oriented X3, Cooperative, No Acute Distress HEENT: Atraumatic, PERRLA, EOMI, Mucous Memb Moist/[place] Neck: Supple, No JVD, No Thyromegaly, +2 Carotid Pulse No Bruit Lungs: Clear to Auscultation, Normal Air Movement Heart: Regular Rate, Normal S1, Normal S2, No Murmurs, Gallops Abdomen: Normal Bowel Sounds, Soft, No Tenderness, No Hepatosplenomegaly, No Masses Extremities: No Clubbing, No Cyanosis, No Edema, Normal Pulses, No Tenderness/ Swelling Skin: No Rashes, No Breakdown, No Significant Lesion Neuro: Sensation Intact, Other (right sided hemiparesis 3/5 upper and lower, global weakness, aphasia, facial droop left) Results Lab Data Laboratory Tests 03/30/18 11:54: Glucometer 124H 03/30/18 16:57: Glucometer 161H 03/30/18 20:56: Glucometer 149H 03/31/18 06:03: Glucometer 127H 03/31/18 06:45: White Blood Count 10.5, Red Blood Count 4.48, Hemoglobin 13.2L, Hematocrit 39L, Mean Corpuscular Volume 87, Mean Corpuscular Hemoglobin 29, Mean Corpuscular Hemoglobin Concent 34, Red Cell Distribution Width 15.8H, Platelet Count 215, Mean Platelet Volume 12.2H, Neutrophils (%) (Auto) 64, Lymphocytes (%) (Auto) 22 , Monocytes (%) (Auto) 11, Eosinophils (%) (Auto) 3, Basophils (%) (Auto) 0, Neutrophils # (Auto) 6.7, Lymphocytes # (Auto) 2.3, Monocytes # (Auto) 1.1H, Eosinophils # (Auto) 0.4H, Basophils # (Auto) 0.0, Sodium Level 140, Potassium Level 3.7, Chloride Level 106, Carbon Dioxide Level 23, Anion Gap 11, Blood Urea Nitrogen 18, Creatinine 0.88, Estimat Glomerular Filtration Rate > 60, BUN/ Creatinine Ratio 20, Glucose Level 101, Calcium Level 9.4, Corrected Calcium 9.6 , Total Bilirubin 0.5, Aspartate Amino Transf (AST/SGOT) 22, Alanine Aminotransferase (ALT/SGPT) 22, Alkaline Phosphatase 44, Total Protein 6.3L, Albumin 3.7 03/31/18 11:10: Glucometer 202H 03/31/18 16:46: Glucometer 124H 03/31/18 20:56: Glucometer 157H 04/01/18 05:54: Glucometer 90 04/01/18 11:51: Glucometer 108 04/01/18 16:56: Glucometer 150H 04/01/18 20:27: Glucometer 142H 04/02/18 05:16: Glucometer 86 Assessment/Plan Assessment and Plan (1) Cerebrovascular accident (CVA) with involvement of right side of body Status: Acute (2) ICD (implantable cardioverter-defibrillator) in place Status: Chronic (3) Situational depression Status: Acute (4) Pacemaker Status: Chronic (5) Aphasia Status: Acute (6) Hypertension Qualifiers: Qualified Codes: I10 - Essential (primary) hypertension Status: Chronic (7) Renal insufficiency Status: Chronic (8) Hyperlipidemia Qualifiers: Qualified Codes: E78.2 - Mixed hyperlipidemia Status: Chronic (9) CHF (congestive heart failure) Qualifiers: Qualified Codes: I50.22 - Chronic systolic (congestive) heart failure Status: Chronic (10) CAD (coronary artery disease) Qualifiers: Qualified Codes: I25.10 - Atherosclerotic heart disease of [place] coronary artery without angina pectoris Status: Chronic (11) Expressive aphasia Status: Acute (12) Diabetes mellitus Qualifiers: Qualified Codes: E11.59 - Type 2 diabetes mellitus with other circulatory complications Status: Chronic (13) COPD (chronic obstructive pulmonary disease) Qualifiers: Qualified Codes: J44.9 - Chronic obstructive pulmonary disease, unspecified Status: Chronic (14) Smoker Status: Chronic (15) Stented coronary artery Status: Chronic (16) Constipation Qualifiers: Qualified Codes: K59.01 - Slow transit constipation Status: Acute Co-Morbidities that are continuing to impact the rehab process: (include details ) GRISELDA SANTOS DO Apr 02, 2018 08:47
--- NOTE | 2018-04-02 08:52 | Physical Therapy Progress Note ---
Therapy Progress Note Unable to see patient this morning as pt off unit for a procedure. SAIRA BLANKENSHIP PT Apr 02, 2018 08:52
--- NOTE | 2018-04-02 09:11 | Cardiology Progress Note ---
Subjective Date Seen by Provider: Apr 02, 2018 Time Seen by Provider: 09:10 Subjective/Events-last exam patient is laying down in bed, no new complaint. No chest pain. Still having aphasia and right-sided weakness Review of Systems General: No Chills, No Night Sweats, No Fatigue, No Malaise, No Appetite, No Other HEENT: No Head Aches, No Visual Changes, No Eye Pain, No Ear Pain, No Dysphasia , No Sinus Congestion, No Post Nasal Drip, No Sore Throat, No Other Pulmonary: No Dyspnea, No Cough, No Pleuritic Chest Pain, No Other Cardiovascular: No: Chest Pain, Palpitations, Orthopnea, Paroxysmal Noc. Dyspnea, Edema, Lt Headedness, Other Objective-Cardiology Exam Last Set of Vital Signs Vital Signs 04/02/18 06:00 Temp 97.6 Pulse 68 Resp 20 B/P (MAP) 106/68 (81) Pulse Ox 97 O2 Delivery Room Air Capillary Refill : I&O Intake and Output 04/02/18 00:00 Intake Total 1290 ml Balance 1290 ml Intake Oral 1290 ml # Voids 5 # Bowel Movements 2 General: Alert, Oriented X3, Cooperative, No Acute Distress HEENT: Atraumatic, PERRLA, EOMI, Mucous Memb Moist/[place] Neck: Supple, No JVD, No Thyromegaly, +2 Carotid Pulse No Bruit Lungs: Clear to Auscultation, Normal Air Movement Heart: Regular Rate, Normal S1, Normal S2, No Murmurs, Gallops Abdomen: Normal Bowel Sounds, Soft, No Tenderness, No Hepatosplenomegaly, No Masses Extremities: No Clubbing, No Cyanosis, No Edema, Normal Pulses, No Tenderness/ Swelling Skin: No Rashes, No Breakdown, No Significant Lesion Neuro: Sensation Intact, Other (right sided hemiparesis 1/5 upper and lower, global weakness, aphasia, facial droop left) Results Lab Laboratory Tests Test 04/01/18 11:51 04/01/18 16:56 04/01/18 20:27 04/02/18 05:16 Range/Units Glucometer 108 150 H 142 H 86 70-110 MG/DL A/P-Cardiology Admission Diagnosis CVA Coronary artery disease Congestive heart failure, chronic compensated left ventricular systolic dysfunction, nonischemic cardiomyopathy Hypertension Assessment/Plan 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 Raphael, DELMY was done, no source of embolization was noted, no ASD or PFO, left atrium and left atrial appendage are clear, diffuse left ventricular hypokinesia with ejection fraction 40 percent. History of paroxysmal atrial fibrillation, had cardioversion, was not maintained on oral anticoagulation, was maintained on aspirin 81 mg daily and he was followed by [facility] cardiology, Dr Raphael and maintained on amiodarone Coronary artery disease, cardiac catheterization done on April 13, 2015 revealed total occlusion of large dominant right coronary artery with collateral filling the distal right from the left side. Total occlusion of the mid proper circumflex artery, small artery receiving collateral from left anterior descending. 40-50 percent mid LAD stenosis. Nonobstructive disease. EF 30 percent, he was referred to had 4 stents overlapping in the right coronary artery done in April 2015, returned in October 2015 and had intervention to the posterior lateral branch, had a cardiac catheterization done at in June 2017 reported as patent stent in the right coronary artery and right posterior descending artery. Chronically occluded obtuse marginal branch that did not change compared to the previous study. Conservative management was recommended Congestive heart failure, chronic compensated LV dysfunction; had an echocardiogram done at and reported to have ejection fraction 35 percent, Status post ICD implanted by Dr. Sanjay Raphael, [employer] (h/o sudden cardiac and ventricular tachycardia) managed and followed at Carotid artery stenosis status post left CEA in 2011. Carotid u/s at Dr Rosenberg's in Dec 2017 showed 1-39% bilat ICA stenoses COPD, still smoking one cigar a day Hypertension, monitor blood pressure Hyperlipidemia, monitor Lipids Diabetes mellitus-managed by primary care physician Clinical Quality Measures DVT/VTE Risk/Contraindication: Risk Factor Score Per Nursin RFS Level Per Nursing on Admit: 4+=Very High TAYLOR ROSENBERG MD Apr 02, 2018 09:11
[2018-04-02 10:05] VITALS: BP 107/66
[2018-04-02 10:09] VITALS: BP 110/64
[2018-04-02 10:14] VITALS: BP 133/70
[2018-04-02] MEDS: CARVEDILOL 6.25 MG (COREG) TAB PO SCH ×2 (12:02→20:03)
[2018-04-02] MEDS: APIXABAN 5 MG (ELIQUIS) TABLET PO SCH ×2 (12:02→20:03)
[2018-04-02] MEDS: METHIMAZOLE TABLET 5 MG TABLET PO SCH (12:03)
[2018-04-02] MEDS: OMEGA 3 (FISH OIL) 1000 MG CAP PO SCH ×3 (12:03→20:03)
[2018-04-02] MEDS: VITAMIN D3 1,000 UNITS (CHOLECALCIFEROL) TABLET PO SCH (12:03)
[2018-04-02] MEDS: ENALAPRIL 2.5 MG (VASOTEC) TAB PO SCH (12:03)
[2018-04-02] MEDS: FUROSEMIDE 40 MG (LASIX) TAB PO SCH (12:04)
[2018-04-02] MEDS: AMIODARONE 200 MG (CORDARONE) TAB PO SCH (12:04)
[2018-04-02] MEDS: DIGOXIN 0.125 MG (LANOXIN) TAB PO SCH (12:04)
[2018-04-02 12:05] VITALS: BP 110/69
--- NOTE | 2018-04-02 14:58 | Therapy Group Daily Note ---
Therapy Daily Group Note Patient Education Topic Home Safety Exercises LE Seated Exercise, UE Exercise Other/Notes Pt participated in group therapy with 4 to 1 ratio. Goals of session are understanding home safety and leading UE/LE seated exercises. Pt ambulated to group in [facility]. Group consisted of introductions ( name, place born, favorite food). Pt introduced self appropriately and actively listened to peers. Pt was able to read and lead own exercise. Pt attempted to complete with R UE, decreased AROM for R UE. Pt tolerated and was able to complete. Dice were rolled for UE AROM/strengthening for amount of reps to complete for exercises. Pt then nodded head in affirmation, gave personal example and attended to handout given for home safety education. Memory activity initiated for next group-michelle, cat, nancy, kaycee, israel. Pt met goals of session by participation and acknowledgement of topics. Pt is able to benefit from group by using exercises throughout therapy stay and at discharge. Make effective decisions for home safety when discharged. After therapy, pt lying in bed with call light/phone in reach. All needs met. Start Time: 13:00 Stop Time: 14:15 Total Billed Treatment Time: 75 Total Billed Treatment 1-GRP SAIRA DURAN Apr 02, 2018 14:58
--- NOTE | 2018-04-02 15:24 | NUR ---
Pt has positive gag reflex now, Dr. Rosenberg states to re-order previous diet.
--- NOTE | 2018-04-02 15:35 | Speech Therapy Daily Note ---
Speech Daily Progress Note Subjective Date Seen by Provider: Apr 02, 2018 Time Seen by Provider: 00:30 Patient seen this afternoon following an esophageal exam. Objective Patient utilization of picture communication board for wants/needs at 75% accuracy with min to mod directions. Assessment Assessment Current Status: Good Progress Treatment Plan Continue Plan of Care Communication Comprehension: 4 Expression: 1 Social Cognition Social Interaction: 3 Problem Solvin Memory: 4 Speech Short Term Goals Short Term Goals Short Term Goals 1) Patient will tolerate least restrictive diet level without s/s of aspiration at 90% or greater. 2) Patient will utilize compensatory strategies as trained with 90% or greater. 3) Patient patient will complete various verbal expressive tasks ( confrontational naming, sentence completion, etc.) with 80% or greater. Speech Council Member Goals Council Member Goals Patient will maintain adequate nutrition/hydration via safe, effective swallow function. Patient will demonstrate increased auditory comprehension and verbal expression to be able to carry on a simple conversation with min assist. Speech-Plan Patient/Family Goals Patient/Family Goals: Patient plans to return to his assisted living apartment post rehab. Treatment Plan Speech Therapy Treatment Plan: Continue Plan of Care Patient utilized his picture board to indicate he was hungry, however he does not have a gag reflex post esophageal procedure and was directed to wait until dinner. Treatment Duration: Apr 08, 2018 Frequency: 5 times per week Estimated Hrs Per Day: .25 hour per day Rehab Potential: Fair Barriers to Learning: Patient has difficulty with expression of needs. Pt/Family Agrees to Plan: Yes Safety Risks/Education Teaching Recipient: Patient Teaching Methods: Discussion Response to Teaching: Verbalize Understanding Education Topics Provided: Reason for not being able to eat for a while longer. Time Speech Therapy Time In: 14:15 Speech Therapy Time Out: 14:45 Total Billed Time: 30 Billed Treatment Time 1, DEV Alvarado Apr 02, 2018 15:35
--- NOTE | 2018-04-02 16:08 | NUR ---
Weekly team conference Discussed weekly team conference with patient. Patient is agreeable to discharge next 04/08/18. Called [facility] and left a message regarding tentative discharge plan. Recommend HHC PT, OT and PHOTOGRAPHER'S ASSISTANT. Will f/u with patient later this week or early next week regarding HHC.
[2018-04-02 19:00] VITALS: BP 126/62
[2018-04-02] MEDS: ATORVASTATIN 80 MG (LIPITOR) TABLET PO SCH (20:03)
[2018-04-03] MEDS: inSUlin ASPART (NovoLOG) 1 UNIT/0.01 ML (CHARGE PER UNIT) SC SCH ×4 (05:44→21:25)
[2018-04-03 05:46] VITALS: BP 106/67
[2018-04-03] MEDS: GLIMEPIRIDE 4 MG (AMARYL) TAB PO SCH (06:04)
[2018-04-03] MEDS: PANTOPRAZOLE 20 MG TABLET (PROTONIX) PO SCH (06:04)
--- NOTE | 2018-04-03 08:34 | Speech Therapy Daily Note ---
Speech Daily Progress Note Subjective Date Seen by Provider: Apr 03, 2018 Time Seen by Provider: 00:30 Patient was resting in bed when I entered the room. He had just finished eating his breakfast without difficulty. Objective Patient completed speech production exercises with focus on word finding and extending his one word responses to short phrases. Patient completed the task at 70% with moderate cuing. Assessment Assessment Current Status: Good Progress Treatment Plan Continue Plan of Care Communication Comprehension: 4 Expression: 1 Social Cognition Social Interaction: 3 Problem Solvin Memory: 4 Speech Short Term Goals Short Term Goals Short Term Goals 1) Patient will tolerate least restrictive diet level without s/s of aspiration at 90% or greater. 2) Patient will utilize compensatory strategies as trained with 90% or greater. 3) Patient patient will complete various verbal expressive tasks ( confrontational naming, sentence completion, etc.) with 80% or greater. Speech Residential Goals Broom Machine Operator Goals Patient will maintain adequate nutrition/hydration via safe, effective swallow function. Patient will demonstrate increased auditory comprehension and verbal expression to be able to carry on a simple conversation with min assist. Speech-Plan Patient/Family Goals Patient/Family Goals: Patient plans to return to his assisted living facility post rehab. Treatment Plan Speech Therapy Treatment Plan: Continue Plan of Care Patient is utilizing his picture board for communication as needed. Treatment Duration: Apr 08, 2018 Frequency: 5 times per week Estimated Hrs Per Day: .25 hour per day Rehab Potential: Fair Barriers to Learning: Patient has expressive aphasia Pt/Family Agrees to Plan: Yes Safety Risks/Education Teaching Recipient: Patient Teaching Methods: Discussion Response to Teaching: Verbalize Understanding Education Topics Provided: Safety within his room. Time Speech Therapy Time In: 08:00 Speech Therapy Time Out: 08:30 Total Billed Time: 30 Billed Treatment Time 1, DEV Alavrado Apr 03, 2018 08:34
--- NOTE | 2018-04-03 08:44 | Cardiology Progress Note ---
Subjective Date Seen by Provider: Apr 03, 2018 Time Seen by Provider: 08:43 Subjective/Events-last exam patient is laying down in bed, feeling better, speech is slightly better. Review of Systems General: No Chills, No Night Sweats, No Fatigue, No Malaise, No Appetite, No Other HEENT: No Head Aches, No Visual Changes, No Eye Pain, No Ear Pain, No Dysphasia , No Sinus Congestion, No Post Nasal Drip, No Sore Throat, No Other Pulmonary: No Dyspnea, No Cough, No Pleuritic Chest Pain, No Other Cardiovascular: No: Chest Pain, Palpitations, Orthopnea, Paroxysmal Noc. Dyspnea, Edema, Lt Headedness, Other Objective-Cardiology Exam Last Set of Vital Signs Vital Signs 04/03/18 05:46 Temp 96.9 Pulse 61 Resp 16 B/P (MAP) 106/67 (80) Pulse Ox 94 O2 Delivery Room Air Capillary Refill : I&O Intake and Output 04/03/18 00:00 Intake Total 640 ml Output Total 650 ml Balance -10 ml Intake Oral 640 ml Output Urine Total 650 ml # Voids 3 # Bowel Movements 1 General: Alert, Oriented X3, Cooperative, No Acute Distress HEENT: Atraumatic, PERRLA, EOMI, Mucous Memb Moist/[place] Neck: Supple, No JVD, No Thyromegaly, +2 Carotid Pulse No Bruit Lungs: Clear to Auscultation, Normal Air Movement Heart: Regular Rate, Normal S1, Normal S2, No Murmurs, Gallops Abdomen: Normal Bowel Sounds, Soft, No Tenderness, No Hepatosplenomegaly, No Masses Extremities: No Clubbing, No Cyanosis, No Edema, Normal Pulses, No Tenderness/ Swelling Skin: No Rashes, No Breakdown, No Significant Lesion Neuro: Sensation Intact, Other (right sided hemiparesis 3/5 upper and lower, global weakness, aphasia, facial droop left) Results Lab Laboratory Tests Test 04/02/18 12:02 04/02/18 15:22 04/02/18 20:06 04/03/18 05:41 Range/Units Glucometer 104 97 165 H 114 H 70-110 MG/DL A/P-Cardiology Admission Diagnosis CVA Coronary artery disease Congestive heart failure, chronic compensated left ventricular systolic dysfunction, nonischemic cardiomyopathy Hypertension Assessment/Plan 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 Raphael, DELMY was done, no source of embolization was noted, no ASD or PFO, left atrium and left atrial appendage are clear, diffuse left ventricular hypokinesia with ejection fraction 40 percent. History of paroxysmal atrial fibrillation, interrogation of his device did not show any episodes of atrial fibrillation, continue to monitor Coronary artery disease, cardiac catheterization done on April 13, 2015 revealed total occlusion of large dominant right coronary artery with collateral filling the distal right from the left side. Total occlusion of the mid proper circumflex artery, small artery receiving collateral from left anterior descending. 40-50 percent mid LAD stenosis. Nonobstructive disease. EF 30 percent, he was referred to had 4 stents overlapping in the right coronary artery done in April 2015, returned in October 2015 and had intervention to the posterior lateral branch, had a cardiac catheterization done at in June 2017 reported as patent stent in the right coronary artery and right posterior descending artery. Chronically occluded obtuse marginal branch that did not change compared to the previous study. Conservative management was recommended Congestive heart failure, chronic compensated LV dysfunction; had an echocardiogram done at and reported to have ejection fraction 35 percent, Status post ICD implanted by Dr. Sanjay Raphael, [employer] (h/o sudden cardiac and ventricular tachycardia) managed and followed at Carotid artery stenosis status post left CEA in 2011. Carotid u/s at Dr Rosenebrg's in Dec 2017 showed 1-39% bilat ICA stenoses COPD, still smoking one cigar a day Hypertension, monitor blood pressure Hyperlipidemia, monitor Lipids Diabetes mellitus-managed by primary care physician Clinical Quality Measures DVT/VTE Risk/Contraindication: Risk Factor Score Per Nursin RFS Level Per Nursing on Admit: 4+=Very High TAYLOR ROSENBERG MD Apr 03, 2018 08:44
--- NOTE | 2018-04-03 09:07 | PM&R Progress Note ---
Subjective HPI/CC On Admission Date Seen by Provider: Apr 03, 2018 Time Seen by Provider: 08:45 Subjective/Events-last exam Patient doing well No issues overnight Wheezing noted on exam today and he has a cough periodically and has COPD hx so will start Nebs No pain is reported Goal of DC next week Review of Systems Neurological: Weakness, Numbness, Incoordination, Change in speech Objective Exam Vital Signs Vital Signs Date Time Temp Pulse Resp B/P (MAP) Pulse Ox O2 Delivery O2 Flow Rate FiO2 04/03/18 05:46 96.9 61 16 106/67 (80) 94 Room Air Capillary Refill : General Appearance: No Apparent Distress, WD/WN, Chronically ill Respiratory: Chest Non Tender, No Accessory Muscle Use, No Respiratory Distress , Crackles, Decreased Breath Sounds, Wheezing Neurologic/Psychiatric: Alert, Oriented x3, No Motor/Sensory Deficits, Normal Mood/Affect Skin: Normal Color, Warm/Dry Results/Procedures Lab Patient resulted labs reviewed. 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 aphasia with improved right upper and lower extremity function now but expressive aphasia no significant changes yet and DELMY yesterday revealed no thrombosis CAD s/p stents in the past Congestive heart failure chronic systolic dysfunction ejection fraction 35 percent Status post ICD implanted by Dr Raphael at [facility] Paroxysmal atrial fibrillation status post cardioversion not on anticoagulation Carotid artery stenosis status post left CEA COPD Cigar smoker Hypertension Hyperlipidemia Diabetes mellitus Situational depression Constipation resolved Wheezing on exam today Plan: Continue therapies Bowel and bladder maintenance of routine Appreciate cardiology management for complex cardiac history Improving strength on the right side so improving the ability to assist in ADLs May need behavioral health to evaluate depression since it may interfere with his therapies and progression BM regimen Nebs with IS Diagnosis/Problems Diagnosis/Problems (1) Cerebrovascular accident (CVA) with involvement of right side of body Status: Acute (2) ICD (implantable cardioverter-defibrillator) in place Status: Chronic (3) Situational depression Status: Acute (4) Pacemaker Status: Chronic (5) Aphasia Status: Acute (6) Hypertension Status: Chronic Qualifiers: Hypertension type: essential hypertension Qualified Codes: I10 - Essential (primary) hypertension (7) Renal insufficiency Status: Chronic (8) Hyperlipidemia Status: Chronic Qualifiers: Hyperlipidemia type: mixed hyperlipidemia Qualified Codes: E78.2 - Mixed hyperlipidemia (9) CHF (congestive heart failure) Status: Chronic Qualifiers: Heart failure type: systolic Heart failure chronicity: chronic Qualified Codes: I50.22 - Chronic systolic (congestive) heart failure (10) CAD (coronary artery disease) Status: Chronic Qualifiers: Coronary Disease-Associated Artery/Lesion type: [place] artery [place] vs. transplanted heart: marshall heart Associated angina: without angina Qualified Codes: I25.10 - Atherosclerotic heart disease of [place] coronary artery without angina pectoris (11) Expressive aphasia Status: Acute (12) Diabetes mellitus Status: Chronic Qualifiers: Diabetes mellitus type: type 2 Diabetes mellitus intermodal customer service insulin use: without intermodal customer service use Diabetes mellitus complication status: with circulatory complication Diabetes mellitus complication detail: with other circulatory complications Qualified Codes: E11.59 - Type 2 diabetes mellitus with other circulatory complications (13) COPD (chronic obstructive pulmonary disease) Status: Chronic Qualifiers: COPD type: unspecified COPD Qualified Codes: J44.9 - Chronic obstructive pulmonary disease, unspecified (14) Smoker Status: Chronic (15) Stented coronary artery Status: Chronic (16) Constipation Status: Resolved Qualifiers: Constipation type: slow transit constipation Qualified Codes: K59.01 - Slow transit constipation Resolution Date/Time: 04/03/18 @ 11:32 (17) Wheezing Status: Acute Clinical Quality Measures Admission Status Admission Dx Assessment: 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 aphasia CAD s/p stents in the past Congestive heart failure chronic systolic dysfunction ejection fraction 35 percent Status post ICD implanted by Dr Raphael at [facility] Paroxysmal atrial fibrillation status post cardioversion not on anticoagulation Carotid artery stenosis status post left CEA COPD Cigar smoker Hypertension Hyperlipidemia Diabetes mellitus Situational depression Plan: Continue therapies Bowel and bladder maintenance of routine Appreciate cardiology management for complex cardiac history Improving strength on the right side so improving the ability to assist in ADLs May need behavioral health to evaluate depression since it may interfere with his therapies and progression DVT/VTE Risk/Contraindication: Risk Factor Score Per Nursin RFS Level Per Nursing on Admit: 4+=Very High GRISELDA SANTOS DO Apr 03, 2018 09:07
[2018-04-03] MEDS: VITAMIN D3 1,000 UNITS (CHOLECALCIFEROL) TABLET PO SCH (09:28)
[2018-04-03] MEDS: DIGOXIN 0.125 MG (LANOXIN) TAB PO SCH (09:28)
[2018-04-03] MEDS: METHIMAZOLE TABLET 5 MG TABLET PO SCH (09:28)
[2018-04-03] MEDS: CARVEDILOL 6.25 MG (COREG) TAB PO SCH ×2 (09:28→19:56)
[2018-04-03] MEDS: FUROSEMIDE 40 MG (LASIX) TAB PO SCH (09:28)
[2018-04-03] MEDS: OMEGA 3 (FISH OIL) 1000 MG CAP PO SCH ×3 (09:28→19:56)
[2018-04-03] MEDS: APIXABAN 5 MG (ELIQUIS) TABLET PO SCH ×2 (09:28→19:56)
[2018-04-03] MEDS: AMIODARONE 200 MG (CORDARONE) TAB PO SCH (09:28)
[2018-04-03] MEDS: ENALAPRIL 2.5 MG (VASOTEC) TAB PO SCH (09:45)
--- NOTE | 2018-04-03 09:51 | Occupational Ther Daily Note ---
OT Current Status-Daily Note Subjective Pt sleeping in bed, woke to name. Pt agrees to therapy. Slow to fully awake. No c/o pain at this time. Mental Status/Objective Patient Orientation: Person, Place, Non-Verbal/Aphasic, Time, Situation Therapy Code Descriptions/Definitions Functional [place] Measure: 0=Not Assessed/NA 4=Minimal Assistance 1=Total Assistance 5=Supervision or Setup 2=Maximal Assistance 6=Modified [place] 3=Moderate Assistance 7=Complete [place] Attachments: IV ADL-Treatment Pt declined shower at this time. Supine to sitting mod I using HOB slightly raised and bedrails. Therapy Code Descriptions/Definitions Functional [place] Measure: 0=Not Assessed/NA 4=Minimal Assistance 1=Total Assistance 5=Supervision or Setup 2=Maximal Assistance 6=Modified [place] 3=Moderate Assistance 7=Complete [place] Therapy Quality Codes: 6 Independent with activity with or without an assistive device 5 Patient requires set up or clean up by helper. Patient completes activity by themselves 4 Supervision or touching assist (CGA). [place] provide cues , steadying assist 3 The helper provides less than half the effort to complete the activity 2 The helper provides more than half the effort to complete the activity 1 Dependent. The helper does all the effort to complete an activity 7 Patient refused to complete or attempt activity 9 The patient did not perform the activity before the current illness or injury 88 Not attempted due to Medical conditions or safety concerns Grooming (FIM): 5 (Supervision for safety. Standing at sink, pt able to complete cleansing dentures after set up (opening denture cleanser packet).) Oral Hygiene (QC): 4 Upper Body (FIM): 5 (After set up, pt able to complete own upper body dressing. ) Upper Body Dressing (QC): 5 Lower Body Dressing (FIM): 4 (Pt completes dressing after set up. Pt is able to complete lower body dressing with assist only to hook overalls.) Lower Body Dressing (QC): 4 On/Off Footwear (QC): 4 (Supervision for safety.) Other Treatment Pt ambulated to therapy gym. Completed arm bike with R hand wrapped onto handle to assist with microcomputer support specialist. Pt able to rotate handles forward/backward 6 min each with AROM of R UE, minimal resistance with arm bike. Good scapular gliding throughout exercise. Therapy sponge given to pt for use in room to increase microcomputer support specialist strength. Pt demonstrated understanding and ability to complete movement to lightly squeeze sponge. Horizontal abd/add with minimal resistance completed 2 sets 10 reps, no assist. Lying in supine pt able to shldr flex/ext with only light physical cues to keep arm in correct position. Pt then ambulated back to room. After therapy, pt lying in bed with call light/phone in reach. Nrsg present in room. All needs met in room. Safety measures in place. Education OT Patient Education: Exercise program Teaching Recipient: Patient Teaching Methods: Demonstration Response to Teaching: Return Demonstration OT Short Term Goals Short Term Goals Time Frame: Apr 04, 2018 Grooming(FIM): 5 Bathing(FIM): 4 Upper Body Dressing(FIM): 4 Lower Body Dressing(FIM): 4 Toileting(FIM): 4 Additional Short Term Goals: 1-Demonstrate ADL Tasks, 2-Verbalize Understanding , 3-ImproveStrength/Kristine 1=Demonstrate adherence to instructed precautions during ADL tasks. 2=Patient will verbalize/demonstrate understanding of assistive devices/ modifications for ADL. 3=Patient will improve strength/tolerance for activity to enable patient to perform ADL's. OT Assisted Goals Manager Special Events Goals Time Frame: Apr 18, 2018 Eating (FIM): 6 Eating (QC): 6 Groomin Oral Hygiene (QC): 6 Bathing(FIM): 5 Shower/Bathe Self (QC): 4 Upper Body Dressing(FIM): 6 Upper Body Dressing (QC): 6 Lower Body Dressing(FIM): 5 Lower Body Dressing (QC): 5 On/Off Footwear (QC): 5 Toileting(FIM): 6 Toileting Hygiene (QC): 6 Toilet/Commode Transfer(FIM): 6 Toilet/Commode Transfer (QC): 6 Shower Transfer(FIM): 5 Additional Goals: 1-Demonstrate ADL Tasks, 2-Verbalize Understanding, 3- ImproveStrength/Kristine 1=Demonstrate adherence to instructed precautions during ADL tasks. 2=Patient will verbalize/demonstrate understanding of assistive devices/ modifications for ADL. 3=Patient will improve strength/tolerance for activity to enable patient to perform ADL's. OT Education/Plan Discharge Recommendations Plan/Recommendations: Continue POC Treatment Plan/Plan of Care Patient would benefit from OT for education, treatment and training to promote independence in ADL's, mobility, safety and/or upper extremity function for ADL' s. Plan of Care: ADL Retraining, Functional Mobility, Group Exercise/Act as Ind, UE Funct Exercise/Act, UE Neuromus Re-Ed/Coord, Visual/Perceptual Retrain Treatment Duration: Apr 18, 2018 Frequency: At least 5 of 7 days/Wk (IRF) Estimated Hrs Per Day: 1.5 hours per day Agreement: Yes Rehab Potential: Fair Time/GCodes Start Time: 08:30 Stop Time: 09:45 Total Time Billed (hr/min): 75 Billed Treatment Time 1 visit-ADL 2 (25 min) NM 3 (50 min) SAIRA DURAN Apr 03, 2018 09:51
--- NOTE | 2018-04-03 10:59 | Physical Therapy Daily Note ---
PT Daily Note-Current Subjective Patient in bed pre tx, agrees to PT, no complaints of pain. Appearance Patient in bed post tx with nurse call, tray, bed alarm on, all needs met. Mental Status Patient Orientation: Person, Unable to Assess, Non-Verbal/Aphasic Transfers Therapy Code Descriptions/Definitions Functional [place] Measure: 0=Not Assessed/NA 4=Minimal Assistance 1=Total Assistance 5=Supervision or Setup 2=Maximal Assistance 6=Modified [place] 3=Moderate Assistance 7=Complete [place] Therapy Quality Codes: 6 Independent with activity with or without an assistive device 5 Patient requires set up or clean up by helper. Patient completes activity by themselves 4 Supervision or touching assist (CGA). [place] provide cues , steadying assist 3 The helper provides less than half the effort to complete the activity 2 The helper provides more than half the effort to complete the activity 1 Dependent. The helper does all the effort to complete an activity 7 Patient refused to complete or attempt activity 9 The patient did not perform the activity before the current illness or injury 88 Not attempted due to Medical conditions or safety concerns Transfers (B, C, W/C) (FIM): 5 Scootin Rollin Supine to/from Sit: 7 Sit to/from Stand: 5 Bed to/from Chair: 5 Weight Bearing Right Lower Extremity: Right Full Weight Bearing Left Lower Extremity: Left Full Weight Bearing Gait Training Gait (FIM): 5 Distance: 500'x2 Gait Level of Assist: 5 Gait Persons Needed: 1 Gait Assistive Device: None Patient ambulates with a wide base of support. After ambulating 500' he is pretty fatigued and a little SOB and needs a significant rest break to recover. Exercises sideways walking 20'x2, marching 20'x2, LAQ alternating with 2# ankle weight on right leg for 5 min NuStep Minutes: 15 NuStep Workload: 5 Treatments transfers, ambulation, functional strengthening Assessment Current Status: Fair Progress Patient is improving with general mobility but still needs rest breaks between activities due to fatigue. PT Shelter Goals Stage Technician Goals PT Shelter Goals Time Frame: Apr 19, 2018 Transfers (B,C,W/C) (FIM): 6 Sit to Lying (QC): 6 Lying-Sitting on Side/Bed(QC): 6 Sit to Stand (QC): 6 Rollin Roll Left to Right (QC): 6 Chair/Bvd-aq-Fiwyu Xfer(QC): 6 Car Transfer (QC): 5 Does the Patient Walk: Yes Gait (FIM): 6 Gait distance (FIM): 3=150 ft Distance: 250' Walk 10 feet (QC): 6 Walk 10ft-Uneven Surface(QC): 6 Walk 50ft with 2 Turns (QC): 6 Walk 150 ft (QC): 6 Gait Level of Assist: 6 Gait Assistive Device: None Stairs (FIM): 2 # of Steps: 4 1 Step (curb) (QC): 4 4 Steps (QC): 4 12 Steps (QC): 9 Stairs Level Of Assist: 4 Picking up an Object (QC): 5 PT Plan Problem List Problem List: Activity Tolerance, Functional Strength, Safety, Balance, Gait, Transfer Treatment/Plan Treatment Plan: Continue Plan of Care Treatment Plan: Bed Mobility, Education, Functional Activity Kristine, Functional Strength, Group Therapy, Gait, Safety, Therapeutic Exercise, Transfers Treatment Duration: Apr 19, 2018 Frequency: At least 5 of 7 days/Wk (IRF) Estimated Hrs Per Day: 1.5 hours per day Patient and/or Family Agrees t: Yes Safety Risks/Education Patient Education: Gait Training, Transfer Techniques, Correct Positioning, Safety Issues Teaching Recipient: Patient Teaching Methods: Demonstration, Discussion Response to Teaching: Reinforcement Needed Time/GCodes Time In: 1000 Time Out: 1100 Total Billed Treatment Time: 60 Total Billed Treatment 1 visit GT 30' EX 30' MALIA LITTLEJOHN PT Apr 03, 2018 10:59
--- NOTE | 2018-04-03 13:30 | Physical Therapy Daily Note ---
PT Daily Note-Current Subjective Agrees to PT. Transfers Therapy Code Descriptions/Definitions Functional Cavalier Measure: 0=Not Assessed/NA 4=Minimal Assistance 1=Total Assistance 5=Supervision or Setup 2=Maximal Assistance 6=Modified Cavalier 3=Moderate Assistance 7=Complete [place]alier Therapy Quality Codes: 6 Independent with activity with or without an assistive device 5 Patient requires set up or clean up by helper. Patient completes activity by themselves 4 Supervision or touching assist (CGA). [place] provide cues , steadying assist 3 The helper provides less than half the effort to complete the activity 2 The helper provides more than half the effort to complete the activity 1 Dependent. The helper does all the effort to complete an activity 7 Patient refused to complete or attempt activity 9 The patient did not perform the activity before the current illness or injury 88 Not attempted due to Medical conditions or safety concerns Weight Bearing Right Lower Extremity: Right Full Weight Bearing Left Lower Extremity: Left Full Weight Bearing Gait Training Gait training about the unit with SB-CGA for safety. Pt does not use an AD and was able to walk 200 ft or more with multiple turns. UP/down 8 steps with CGA with skilled cues for sequencing. Pt walked across uneven surface and up/down a curb totalling 50 ft x 5 reps, with CGA. Tends to have a wide ANGY with feet in slight ER. Slightly unsteady but no ynig LOB noted. In bed post treatment with needs. me.t Assessment Current Status: Good Progress Progressing well. Safe with gait this visit on multiple surfaces and longer distance.s PT Usp Goals Roofing Sales Representative Goals PT Usp Goals Time Frame: Apr 19, 2018 Transfers (B,C,W/C) (FIM): 6 Sit to Lying (QC): 6 Lying-Sitting on Side/Bed(QC): 6 Sit to Stand (QC): 6 Rollin Roll Left to Right (QC): 6 Chair/Xkt-gs-Cdyig Xfer(QC): 6 Car Transfer (QC): 5 Does the Patient Walk: Yes Gait (FIM): 6 Gait distance (FIM): 3=150 ft Distance: 250' Walk 10 feet (QC): 6 Walk 10ft-Uneven Surface(QC): 6 Walk 50ft with 2 Turns (QC): 6 Walk 150 ft (QC): 6 Gait Level of Assist: 6 Gait Assistive Device: None Stairs (FIM): 2 # of Steps: 4 1 Step (curb) (QC): 4 4 Steps (QC): 4 12 Steps (QC): 9 Stairs Level Of Assist: 4 Picking up an Object (QC): 5 PT Plan Problem List Problem List: Activity Tolerance, Functional Strength, Safety, Balance, Gait, Transfer, Bed Mobility Treatment/Plan Treatment Plan: Continue Plan of Care Treatment Plan: Bed Mobility, Education, Functional Activity Kristine, Functional Strength, Group Therapy, Gait, Safety, Therapeutic Exercise, Transfers Treatment Duration: Apr 19, 2018 Frequency: At least 5 of 7 days/Wk (IRF) Estimated Hrs Per Day: 1.5 hours per day Patient and/or Family Agrees t: Yes Safety Risks/Education Patient Education: Safety Issues Teaching Recipient: Patient Teaching Methods: Discussion Response to Teaching: Verbalize Understanding Time/GCodes Time In: 1300 Time Out: 1323 Total Billed Treatment Time: 23 Total Billed Treatment vsiit GT 23 SAIRA BLANKENSHIP PT Apr 03, 2018 13:30
[2018-04-03] MEDS: RT-ALBUTEROL/IPRATROPIUM 3 ML (DUONEB) VIAL INH SCH ×3 (14:26→21:45)
[2018-04-03 16:21] VITALS: BP 114/71
[2018-04-03] MEDS: ATORVASTATIN 80 MG (LIPITOR) TABLET PO SCH (19:56)
[2018-04-04 05:11] VITALS: BP 99/62
[2018-04-04] MEDS: PANTOPRAZOLE 20 MG TABLET (PROTONIX) PO SCH (06:03)
[2018-04-04] MEDS: inSUlin ASPART (NovoLOG) 1 UNIT/0.01 ML (CHARGE PER UNIT) SC SCH ×4 (06:03→21:08)
[2018-04-04] MEDS: GLIMEPIRIDE 4 MG (AMARYL) TAB PO SCH (06:03)
--- NOTE | 2018-04-04 09:19 | Occupational Ther Daily Note ---
OT Current Status-Daily Note Subjective Pt sleeping in bed, woke easily to name. Pt agrees to therapy. No c/o pain at this time. Mental Status/Objective Patient Orientation: Person, Place, Non-Verbal/Aphasic, Time, Situation Therapy Code Descriptions/Definitions Functional C[place] Measure: 0=Not Assessed/NA 4=Minimal Assistance 1=Total Assistance 5=Supervision or Setup 2=Maximal Assistance 6=Modified Cascade 3=Moderate Assistance 7=Complete Cascade Attachments: IV ADL-Treatment Therapy Code Descriptions/Definitions Functional [place] Measure: 0=Not Assessed/NA 4=Minimal Assistance 1=Total Assistance 5=Supervision or Setup 2=Maximal Assistance 6=Modified Cascade 3=Moderate Assistance 7=Complete C[place] Therapy Quality Codes: 6 Independent with activity with or without an assistive device 5 Patient requires set up or clean up by helper. Patient completes activity by themselves 4 Supervision or touching assist (CGA). [place] provide cues , steadying assist 3 The helper provides less than half the effort to complete the activity 2 The helper provides more than half the effort to complete the activity 1 Dependent. The helper does all the effort to complete an activity 7 Patient refused to complete or attempt activity 9 The patient did not perform the activity before the current illness or injury 88 Not attempted due to Medical conditions or safety concerns Bathing (FIM): 6 (Safety concerns. Using grabbars, hand held shower and shower bench pt able to complete by self. 1 LOB pt able to catch self.) Bathing Location: L Arm, R Arm, L Upper Leg, R Upper Leg, L Lower Leg ( including foot), R Lower Leg (including foot), Chest, Abdomen, Buttocks, Perineal Area Shower/Bathe Self (QC): 6 Upper Body (FIM): 5 (After set up, pt able to complete by self.) Upper Body Dressing (QC): 5 Lower Body Dressing (FIM): 4 (Min A with hooking overalls. Pt able to doff clothing by self. Dons other clothing by self.) Lower Body Dressing (QC): 3 On/Off Footwear (QC): 6 Toileting (FIM): 6 (Safety concerns. Pt able to complete by self.) Toileting Hygiene (QC): 6 Toilet/Commode Transfer (FIM): 6 (Safety concerns. Pt able to complete by self.) Toilet Transfer (QC): 6 Shower Transfer(FIM): 6 (Safety concerns. Pt able to complete by self.) After therapy, pt lying in bed with call light/phone in reach. Nrsg and respiratory in room. All needs met in room. OT Short Term Goals Short Term Goals Time Frame: Apr 04, 2018 Grooming(FIM): 5 Bathing(FIM): 4 Upper Body Dressing(FIM): 4 Lower Body Dressing(FIM): 4 Toileting(FIM): 4 Additional Short Term Goals: 1-Demonstrate ADL Tasks, 2-Verbalize Understanding , 3-ImproveStrength/Kristine 1=Demonstrate adherence to instructed precautions during ADL tasks. 2=Patient will verbalize/demonstrate understanding of assistive devices/ modifications for ADL. 3=Patient will improve strength/tolerance for activity to enable patient to perform ADL's. OT Corporate Health Consultant Goals Corporate Health Consultant Goals Time Frame: Apr 18, 2018 Eating (FIM): 6 Eating (QC): 6 Groomin Oral Hygiene (QC): 6 Bathing(FIM): 5 Shower/Bathe Self (QC): 4 Upper Body Dressing(FIM): 6 Upper Body Dressing (QC): 6 Lower Body Dressing(FIM): 5 Lower Body Dressing (QC): 5 On/Off Footwear (QC): 5 Toileting(FIM): 6 Toileting Hygiene (QC): 6 Toilet/Commode Transfer(FIM): 6 Toilet/Commode Transfer (QC): 6 Shower Transfer(FIM): 5 Additional Goals: 1-Demonstrate ADL Tasks, 2-Verbalize Understanding, 3- ImproveStrength/Kristine 1=Demonstrate adherence to instructed precautions during ADL tasks. 2=Patient will verbalize/demonstrate understanding of assistive devices/ modifications for ADL. 3=Patient will improve strength/tolerance for activity to enable patient to perform ADL's. OT Education/Plan Discharge Recommendations Plan/Recommendations: Continue POC Treatment Plan/Plan of Care Patient would benefit from OT for education, treatment and training to promote independence in ADL's, mobility, safety and/or upper extremity function for ADL' s. Plan of Care: ADL Retraining, Functional Mobility, Group Exercise/Act as Ind, UE Funct Exercise/Act, UE Neuromus Re-Ed/Coord, Visual/Perceptual Retrain Treatment Duration: Apr 18, 2018 Frequency: At least 5 of 7 days/Wk (IRF) Estimated Hrs Per Day: 1.5 hours per day Agreement: Yes Rehab Potential: Fair Time/GCodes Start Time: 09:00 Stop Time: 10:00 Total Time Billed (hr/min): 60 Billed Treatment Time 1-GRP SAIRA DURAN Apr 04, 2018 09:19
[2018-04-04] MEDS: APIXABAN 5 MG (ELIQUIS) TABLET PO SCH ×2 (09:38→21:14)
[2018-04-04] MEDS: METHIMAZOLE TABLET 5 MG TABLET PO SCH (09:38)
[2018-04-04] MEDS: VITAMIN D3 1,000 UNITS (CHOLECALCIFEROL) TABLET PO SCH (09:38)
[2018-04-04] MEDS: DIGOXIN 0.125 MG (LANOXIN) TAB PO SCH (09:38)
[2018-04-04] MEDS: OMEGA 3 (FISH OIL) 1000 MG CAP PO SCH ×3 (09:38→21:14)
[2018-04-04] MEDS: ENALAPRIL 2.5 MG (VASOTEC) TAB PO SCH (09:38)
[2018-04-04 09:39] VITALS: BP 140/73
[2018-04-04] MEDS: FUROSEMIDE 40 MG (LASIX) TAB PO SCH (09:39)
[2018-04-04] MEDS: AMIODARONE 200 MG (CORDARONE) TAB PO SCH (09:39)
[2018-04-04] MEDS: CARVEDILOL 6.25 MG (COREG) TAB PO SCH ×2 (09:39→21:14)
[2018-04-04] MEDS: RT-ALBUTEROL/IPRATROPIUM 3 ML (DUONEB) VIAL INH SCH ×3 (09:43→20:07)
--- NOTE | 2018-04-04 11:56 | Physical Therapy Daily Note ---
PT Daily Note-Current Subjective Patient in bed pre tx, agrees to PT, no complaints of pain. Appearance Patient in bed post tx with nurse call, phone, tray, all needs met. Mental Status Patient Orientation: Person, Unable to Assess, Non-Verbal/Aphasic Transfers Therapy Code Descriptions/Definitions Functional [place] Measure: 0=Not Assessed/NA 4=Minimal Assistance 1=Total Assistance 5=Supervision or Setup 2=Maximal Assistance 6=Modified [place] 3=Moderate Assistance 7=Complete [place] Therapy Quality Codes: 6 Independent with activity with or without an assistive device 5 Patient requires set up or clean up by helper. Patient completes activity by themselves 4 Supervision or touching assist (CGA). [place] provide cues , steadying assist 3 The helper provides less than half the effort to complete the activity 2 The helper provides more than half the effort to complete the activity 1 Dependent. The helper does all the effort to complete an activity 7 Patient refused to complete or attempt activity 9 The patient did not perform the activity before the current illness or injury 88 Not attempted due to Medical conditions or safety concerns Transfers (B, C, W/C) (FIM): 5 Scootin Rollin Supine to/from Sit: 6 Sit to/from Stand: 5 Bed to/from Chair: 5 Weight Bearing Right Lower Extremity: Right Full Weight Bearing Left Lower Extremity: Left Full Weight Bearing Gait Training Gait (FIM): 5 Distance: 500'x2, 150' Gait Level of Assist: 5 Gait Persons Needed: 1 Gait Assistive Device: None Exercises Standing: Heel/toe raises, Mini squats, Step-ups Standing Reps: 15 NuStep Minutes: 10 NuStep Workload: 5 Treatments bed mobility and transfers, ambulation, functional strengthening Assessment Current Status: Fair Progress improving ambulation and balance, patient is able to indicate that he still feels a little unsteady during ambulation but feels that it has improved. Patient has no LOB during ambulation. PT Assisted Goals Media Manager Goals PT Media Manager Goals Time Frame: Apr 19, 2018 Transfers (B,C,W/C) (FIM): 6 Sit to Lying (QC): 6 Lying-Sitting on Side/Bed(QC): 6 Sit to Stand (QC): 6 Rollin Roll Left to Right (QC): 6 Chair/Wnd-ko-Gcerp Xfer(QC): 6 Car Transfer (QC): 5 Does the Patient Walk: Yes Gait (FIM): 6 Gait distance (FIM): 3=150 ft Distance: 250' Walk 10 feet (QC): 6 Walk 10ft-Uneven Surface(QC): 6 Walk 50ft with 2 Turns (QC): 6 Walk 150 ft (QC): 6 Gait Level of Assist: 6 Gait Assistive Device: None Stairs (FIM): 2 # of Steps: 4 1 Step (curb) (QC): 4 4 Steps (QC): 4 12 Steps (QC): 9 Stairs Level Of Assist: 4 Picking up an Object (QC): 5 PT Plan Problem List Problem List: Activity Tolerance, Functional Strength, Safety, Balance, Gait, Transfer Treatment/Plan Treatment Plan: Continue Plan of Care Treatment Plan: Bed Mobility, Education, Functional Activity Kristine, Functional Strength, Group Therapy, Gait, Safety, Therapeutic Exercise, Transfers Treatment Duration: Apr 19, 2018 Frequency: At least 5 of 7 days/Wk (IRF) Estimated Hrs Per Day: 1.5 hours per day Patient and/or Family Agrees t: Yes Safety Risks/Education Patient Education: Gait Training, Transfer Techniques, Correct Positioning, Safety Issues Teaching Recipient: Patient Teaching Methods: Demonstration, Discussion Response to Teaching: Reinforcement Needed Time/GCodes Time In: 1030 Time Out: 1115 Total Billed Treatment Time: 45 Total Billed Treatment 1 visit GT 25' EX 20' MALIA LITTLEJOHN PT Apr 04, 2018 11:56
--- NOTE | 2018-04-04 13:17 | Cardiology Progress Note ---
Cardiology SOAP Progress Note Subjective: No cardiac complaints. Objective: I&O/Vital Signs 04/05/18 04/05/18 04/05/18 06:00 09:00 10:10 Temp 97.8 Pulse 54 Resp 18 B/P (MAP) 129/72 (91) Pulse Ox 95 94 O2 Delivery Room Air Room Air Room Air 04/05/18 00:00 Intake Total 250 ml Balance 250 ml Weight (Pounds): 190 Weight (Ounces): 1.6 Weight (Calculated Kilograms): 86.725142 Constitutional: No appears stated age; AAO x 3; No apparent distress, No PERRL , No well-developed, No well-nourished, No other Respiratory: No accessory muscle use, No respiratory distress, No chest tender , No chest expansion is symmetric; chest is bilaterally symmetric; No lungs clear to percussion; lungs clear to auscultation; No crackles, No rhonchi, No rales, No stridor, No wheezing, No pleural rub, No other Cardiovascular: regular rate-rhythm; No irregularly irregular, No extra beats, No parasternal heave is noted, No JVD, No edema, No bradycardia, No tachycardia , No point of maximal impulse, No cardiac thrills are palpable; S1 and S2; No gallop/S3, No gallop/S4, No diastolic murmur, No systolic murmur, No friction rub, No click, No other Gastrointestional: No tender, No soft, No round, No distended, No pulsatile mass, No organomegaly, No guarding, No rebound, No tenderness, No hernia, No mass, No audible bowel sounds, No abnormal bowel sounds, No abdominal bruits, No spleenomegaly, No other Extremities: No normal range of motion, No non-tender, No normal inspection, No pedal edema, No calf tenderness, No normal capillary refill, No pelvis stable , No calf tenderness, No inflammation, No pedal edema, No slow capillary refill , No swelling, No other, No abrasion, No clubbing, No cyanosis, No ecchymosis, No laceration, No no lower extremity edema bilateral, No significant edema, No tenderness, No wound Neurologic/Psychiatric: alert, normal mood/affect, oriented x 3, motor weakness Skin: No normal color, No warm/dry, No cyanosis, No cool, No diaphoresis, No damp, No ecchymosis, No jaundice, No mottled, No pallor, No rash, No tattoos/ piercings, No ulcerations, No rash on exposed areas, No ulcerations on exposed areas, No other Results/Procedures: Labs Laboratory Tests 04/04/18 16:01: Glucometer 136H 04/04/18 20:44: Glucometer 120H 04/05/18 06:22: Glucometer 97 04/05/18 11:37: Glucometer 163H A/P: Assessment/Dx: Admission Diagnosis CVA Coronary artery disease Congestive heart failure, chronic compensated left ventricular systolic dysfunction, nonischemic cardiomyopathy Hypertension Plan: Assessment/Plan 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 Raphael, DELMY was done, no source of embolization was noted, no ASD or PFO, left atrium and left atrial appendage are clear, diffuse left ventricular hypokinesia with ejection fraction 40 percent. History of paroxysmal atrial fibrillation, interrogation of his device did not show any episodes of atrial fibrillation, continue to monitor Coronary artery disease, cardiac catheterization done on April 13, 2015 revealed total occlusion of large dominant right coronary artery with collateral filling the distal right from the left side. Total occlusion of the mid proper circumflex artery, small artery receiving collateral from left anterior descending. 40-50 percent mid LAD stenosis. Nonobstructive disease. EF 30 percent, he was referred to had 4 stents overlapping in the right coronary artery done in April 2015, returned in October 2015 and had intervention to the posterior lateral branch, had a cardiac catheterization done at in June 2017 reported as patent stent in the right coronary artery and right posterior descending artery. Chronically occluded obtuse marginal branch that did not change compared to the previous study. Conservative management was recommended Congestive heart failure, chronic compensated LV dysfunction; had an echocardiogram done at and reported to have ejection fraction 35 percent, Status post ICD implanted by Dr. Sanjay Raphael, [employer] (h/o sudden cardiac and ventricular tachycardia) managed and followed at Carotid artery stenosis status post left CEA in 2011. Carotid u/s at Dr Rosenberg's in Dec 2017 showed 1-39% bilat ICA stenoses COPD, still smoking one cigar a day Hypertension, monitor blood pressure Hyperlipidemia, monitor Lipids Diabetes mellitus-managed by primary care physician Thank you for your consultation. Please call me if you have any questions. Vibha Plaza MD, FACP, FACC, FSCAI, FHRS, CCDS Interventional Cardiology Cardiac Electrophysiology Vascular Medicine and Endovascular Interventions Cade PLAZA MD Apr 04, 2018 1:17 pm
--- NOTE | 2018-04-04 14:26 | Speech Therapy Daily Note ---
Speech Daily Progress Note Subjective Date Seen by Provider: Apr 04, 2018 Time Seen by Provider: 00:30 Patient was resting after PT when I entered the room. Objective Patient completed confrontational naming activity with 75% accuracy given 25% visual cues. Assessment Assessment Current Status: Good Progress Treatment Plan Continue Plan of Care Communication Comprehension: 4 Expression: 1 Social Cognition Social Interaction: 3 Problem Solvin Memory: 4 Speech Short Term Goals Short Term Goals Short Term Goals 1) Patient will tolerate least restrictive diet level without s/s of aspiration at 90% or greater. 2) Patient will utilize compensatory strategies as trained with 90% or greater. 3) Patient patient will complete various verbal expressive tasks ( confrontational naming, sentence completion, etc.) with 80% or greater. Speech Jewelry Department Supervisor Goals Jewelry Department Supervisor Goals Patient will maintain adequate nutrition/hydration via safe, effective swallow function. Patient will demonstrate increased auditory comprehension and verbal expression to be able to carry on a simple conversation with min assist. Speech-Plan Patient/Family Goals Patient/Family Goals: Patient will be returning to his assisted living apartment next week. Treatment Plan Speech Therapy Treatment Plan: Continue Plan of Care Patient is progressing as a result of skilled ST services. Treatment Duration: Apr 08, 2018 Frequency: 5 times per week Estimated Hrs Per Day: .25 hour per day Rehab Potential: Fair Barriers to Learning: Patient has expressive aphasia. Pt/Family Agrees to Plan: Yes Safety Risks/Education Teaching Recipient: Patient Teaching Methods: Demonstration, Discussion Response to Teaching: Verbalize Understanding, Return Demonstration Education Topics Provided: Speech production and communication board Time Speech Therapy Time In: 11:15 Speech Therapy Time Out: 11:45 Total Billed Time: 30 Billed Treatment Time 1JEOVANY BETHAN[address] ST Apr 04, 2018 14:26
--- NOTE | 2018-04-04 15:02 | Therapy Group Daily Note ---
Therapy Daily Group Note Patient Education Topic Other List Below Exercises LE Seated Exercise, UE Exercise Other/Notes Pt participated in group therapy with 4 to 1 ratio. Goals of session: Pt will verbalize understanding of memory strategies (met). Lead one UE or LE seated exercise during group therapy (met). Pt ambulated to [facility] for OT/PT group. Group consisted on introductions (name, place living, what would you name a cheetah), socialization , pt led UE/LE seated exercises, memory education/strategies and memory activity. Pt introduced self with assistance due to apraxia and actively listened to peers. Pt acknowledged understanding of memory strategies/ education by nodding head in affirmation due to apraxia. Pt was able to lead one exercise then complete rest of exercises using one-handed techniques. During memory activity pt was able to match pictures on turn. Pt will benefit from group by increasing short term memory and use strategies during daily functional tasks. Pt will be able to complete UE/LE seated exercises after discharge. After group, pt ambulated back to room and laid in bed. Call light/ phone in reach. All needs met in room. Start Time: 13:00 Stop Time: 14:15 Total Billed Treatment Time: 75 Total Billed Treatment 1-GRP SAIRA DURAN Apr 04, 2018 15:02
[2018-04-04 18:43] VITALS: BP 149/63
[2018-04-04] MEDS: ATORVASTATIN 80 MG (LIPITOR) TABLET PO SCH (21:14)
--- NOTE | 2018-04-04 22:14 | PM&R Progress Note ---
Subjective This was a face to face visit with the patient. Date Seen by Provider: Apr 04, 2018 Time Seen by Provider: 09:00 Subjective/Events-last exam Patient was seen in his room Expressive aphasia noted with improvement Walking very well and right arm is regaining function No pain is reported BM+ Review of Systems Neurological: Weakness, Numbness, Incoordination, Change in speech Objective Physician Exam Last Set of Vital Signs Vital Signs Date Time Temp Pulse Resp B/P (MAP) Pulse Ox O2 Delivery O2 Flow Rate FiO2 04/04/18 20:07 92 Room Air 04/04/18 18:43 97.7 86 18 149/63 (91) Capillary Refill : I&O Intake and Output 04/04/18 00:00 Intake Total 1340 ml Balance 1340 ml Intake Oral 1340 ml # Voids 5 General: Alert, Oriented X3, Cooperative, No Acute Distress HEENT: Atraumatic, PERRLA, EOMI, Mucous Memb Moist/[place] Neck: Supple, No JVD, No Thyromegaly, +2 Carotid Pulse No Bruit Lungs: Clear to Auscultation, Normal Air Movement Heart: Regular Rate, Normal S1, Normal S2, No Murmurs, Gallops Abdomen: Normal Bowel Sounds, Soft, No Tenderness, No Hepatosplenomegaly, No Masses Extremities: No Clubbing, No Cyanosis, No Edema, Normal Pulses, No Tenderness/ Swelling Skin: No Rashes, No Breakdown, No Significant Lesion Neuro: Sensation Intact, Other (right sided hemiparesis 3/5 upper and lower, global weakness, aphasia, facial droop left) Results Lab Data Laboratory Tests 04/02/18 05:16: Glucometer 86 04/02/18 12:02: Glucometer 104 04/02/18 15:22: Glucometer 97 04/02/18 20:06: Glucometer 165H 04/03/18 05:41: Glucometer 114H 04/03/18 10:49: Glucometer 126H 04/03/18 16:20: Glucometer 138H 04/03/18 20:38: Glucometer 137H 04/04/18 05:13: Glucometer 97 04/04/18 11:18: Glucometer 114H 04/04/18 16:01: Glucometer 136H 04/04/18 20:44: Glucometer 120H Current Funtional Status Continue aggressive speech and PT/OT Monitor closely Appreciate Cardiology Assessment/Plan Assessment and Plan (1) Cerebrovascular accident (CVA) with involvement of right side of body Status: Acute (2) ICD (implantable cardioverter-defibrillator) in place Status: Chronic (3) Situational depression Status: Acute (4) Pacemaker Status: Chronic (5) Aphasia Status: Acute (6) Hypertension Qualifiers: Qualified Codes: I10 - Essential (primary) hypertension Status: Chronic (7) Renal insufficiency Status: Chronic (8) Hyperlipidemia Qualifiers: Qualified Codes: E78.2 - Mixed hyperlipidemia Status: Chronic (9) CHF (congestive heart failure) Qualifiers: Qualified Codes: I50.22 - Chronic systolic (congestive) heart failure Status: Chronic (10) CAD (coronary artery disease) Qualifiers: Qualified Codes: I25.10 - Atherosclerotic heart disease of [place] coronary artery without angina pectoris Status: Chronic (11) Expressive aphasia Status: Acute (12) Diabetes mellitus Qualifiers: Qualified Codes: E11.59 - Type 2 diabetes mellitus with other circulatory complications Status: Chronic (13) COPD (chronic obstructive pulmonary disease) Qualifiers: Qualified Codes: J44.9 - Chronic obstructive pulmonary disease, unspecified Status: Chronic (14) Smoker Status: Chronic (15) Stented coronary artery Status: Chronic (16) Constipation Qualifiers: Qualified Codes: K59.01 - Slow transit constipation Status: Resolved (17) Wheezing Status: Acute Co-Morbidities that are continuing to impact the rehab process: (include details ) GRISELDA SANTOS DO Apr 04, 2018 22:14
[2018-04-05 06:00] VITALS: BP 129/72
[2018-04-05] MEDS: inSUlin ASPART (NovoLOG) 1 UNIT/0.01 ML (CHARGE PER UNIT) SC SCH ×4 (06:40→22:01)
[2018-04-05] MEDS: GLIMEPIRIDE 4 MG (AMARYL) TAB PO SCH (06:45)
[2018-04-05] MEDS: PANTOPRAZOLE 20 MG TABLET (PROTONIX) PO SCH (06:45)
[2018-04-05] MEDS: FUROSEMIDE 40 MG (LASIX) TAB PO SCH (09:29)
[2018-04-05] MEDS: ENALAPRIL 2.5 MG (VASOTEC) TAB PO SCH (09:29)
[2018-04-05] MEDS: OMEGA 3 (FISH OIL) 1000 MG CAP PO SCH ×3 (09:29→22:01)
[2018-04-05] MEDS: APIXABAN 5 MG (ELIQUIS) TABLET PO SCH ×2 (09:29→22:01)
[2018-04-05] MEDS: CARVEDILOL 6.25 MG (COREG) TAB PO SCH ×2 (09:30→22:00)
[2018-04-05] MEDS: AMIODARONE 200 MG (CORDARONE) TAB PO SCH (09:30)
[2018-04-05] MEDS: METHIMAZOLE TABLET 5 MG TABLET PO SCH (09:31)
[2018-04-05] MEDS: DIGOXIN 0.125 MG (LANOXIN) TAB PO SCH (09:31)
[2018-04-05] MEDS: VITAMIN D3 1,000 UNITS (CHOLECALCIFEROL) TABLET PO SCH (09:33)
[2018-04-05] MEDS: RT-ALBUTEROL/IPRATROPIUM 3 ML (DUONEB) VIAL INH SCH ×3 (10:10→19:45)
--- NOTE | 2018-04-05 12:46 | Physical Therapy Daily Note ---
PT Daily Note-Current Subjective Pt has difficulty verbalizing but is agreeable to PT Pain Numeric Pain Scale: 0-No Pain Appearance Pt in bed easily aroused, agreeable to PT At end of session, pt requesting to get back into bed, call light phone and bedside table within reach. All needs met Mental Status Patient Orientation: Person Transfers Therapy Code Descriptions/Definitions Functional [place] Measure: 0=Not Assessed/NA 4=Minimal Assistance 1=Total Assistance 5=Supervision or Setup 2=Maximal Assistance 6=Modified [place] 3=Moderate Assistance 7=Complete [place] Therapy Quality Codes: 6 Independent with activity with or without an assistive device 5 Patient requires set up or clean up by helper. Patient completes activity by themselves 4 Supervision or touching assist (CGA). [place] provide cues , steadying assist 3 The helper provides less than half the effort to complete the activity 2 The helper provides more than half the effort to complete the activity 1 Dependent. The helper does all the effort to complete an activity 7 Patient refused to complete or attempt activity 9 The patient did not perform the activity before the current illness or injury 88 Not attempted due to Medical conditions or safety concerns Transfers (B, C, W/C) (FIM): 5 Scootin Rollin Supine to/from Sit: 5 (effort required but pt able to complete without physical assist) Sit to/from Stand: 5 min instruction for safety and hand placement during transitions. Minimal right side neglect noted Weight Bearing Right Lower Extremity: Right Full Weight Bearing Left Lower Extremity: Left Full Weight Bearing Gait Training Does the Patient Walk?: Yes Gait (FIM): 5 Distance (FIM): 3=150 ft Distance: 150 x2 Gait Level of Assist: 5 Gait Persons Needed: 1 Gait Assistive Device: None some right side neglect noted requiring verbal instruction due to hitting right arm on chairs as he walks by them Balance Special Test Comments picked up and adjusted foam rolls on floor using // bar for support Exercises Standing: Marching, Mini squats, Sit to Stand, Stepping over objects (step to then reciprocating pattern), Unilateral stance Standing Reps: 20 (added fwd and retro lunges, bilat UE, Unilat UE support and attempting without UE) Treatments balance strengthening and activity tolerance exercises, bed mobility gait and transfer training Assessment Current Status: Good Progress PT [facility] 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 Goals PT [facility] Goals Time Frame: Apr 19, 2018 Transfers (B,C,W/C) (FIM): 6 Sit to Lying (QC): 6 Lying-Sitting on Side/Bed(QC): 6 Sit to Stand (QC): 6 Rollin Roll Left to Right (QC): 6 Chair/[id number] Xfer(QC): 6 Car Transfer (QC): 5 Does the Patient Walk: Yes Gait (FIM): 6 Gait distance (FIM): 3=150 ft Distance: 250' Walk 10 feet (QC): 6 Walk 10ft-Uneven Surface(QC): 6 Walk 50ft with 2 Turns (QC): 6 Walk 150 ft (QC): 6 Gait Level of Assist: 6 Gait Assistive Device: None Stairs (FIM): 2 # of Steps: 4 1 Step (curb) (QC): 4 4 Steps (QC): 4 12 Steps (QC): 9 Stairs Level Of Assist: 4 Picking up an Object (QC): 5 PT Plan Problem List Problem List: Activity Tolerance, Functional Strength, Safety, Balance, Gait, Transfer, Bed Mobility Treatment/Plan Treatment Plan: Continue Plan of Care Treatment Plan: Bed Mobility, Education, Functional Activity Kristine, Functional Strength, Group Therapy, Gait, Safety, Therapeutic Exercise, Transfers Treatment Duration: Apr 19, 2018 Frequency: At least 5 of 7 days/Wk (IRF) Estimated Hrs Per Day: 1.5 hours per day Patient and/or Family Agrees t: Yes Safety Risks/Education Patient Education: Gait Training, Transfer Techniques, Safety Issues Teaching Recipient: Patient Teaching Methods: Discussion Response to Teaching: Verbalize Understanding, Reinforcement Needed (minimal) Time/GCodes Time In: 939 Time Out: 958 Total Billed Treatment Time: 19 Total Billed Treatment 1 visit FA x19 min ATTILA CASTANEDA DIRECTOR OF OUTSIDE SALES Apr 05, 2018 12:46
--- NOTE | 2018-04-05 14:20 | PM&R Progress Note ---
Subjective HPI/CC On Admission Date Seen by Provider: Apr 05, 2018 Time Seen by Provider: 12:15 Subjective/Events-last exam Patient doing very well today Speech is less impaired but he does have to work hard and talks slowly No pain is reported Checked meds and labs Overall progressing well Review of Systems Neurological: Weakness, Numbness, Incoordination, Change in speech Objective Exam Vital Signs Vital Signs Date Time Temp Pulse Resp B/P (MAP) Pulse Ox O2 Delivery O2 Flow Rate FiO2 04/05/18 10:10 94 Room Air 04/05/18 06:00 97.8 54 18 129/72 (91) Capillary Refill : General Appearance: No Apparent Distress, WD/WN Respiratory: Chest Non Tender, Lungs Clear, Normal Breath Sounds, No Accessory Muscle Use, No Respiratory Distress Cardiovascular: Regular Rate, Rhythm, No Edema, No Gallop, No JVD, No Murmur, Normal Peripheral Pulses Neurologic/Psychiatric: Alert, Oriented x3, Normal Mood/Affect, Motor Weakness (Right upper extremity weakness 3/5 much improved and slowed verbal responses) Results/Procedures Lab Patient resulted labs reviewed. 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 Paroxysmal atrial fibrillation status post cardioversion not on anticoagulation Carotid artery stenosis status post left CEA COPD Cigar smoker Hypertension Hyperlipidemia Diabetes mellitus Situational depression Constipation resolved Wheezing on exam 2 days ago now resolved after Nebs Plan: Continue therapies Bowel and bladder maintenance of routine Appreciate cardiology management for complex cardiac history Improving strength on the right side so improving the ability to assist in ADLs May need behavioral health to evaluate depression since it may interfere with his therapies and progression BM regimen Nebs with IS to continue Diagnosis/Problems Diagnosis/Problems (1) Cerebrovascular accident (CVA) with involvement of right side of body Status: Acute (2) ICD (implantable cardioverter-defibrillator) in place Status: Chronic (3) Situational depression Status: Acute (4) Pacemaker Status: Chronic (5) Aphasia Status: Acute (6) Hypertension Status: Chronic Qualifiers: Hypertension type: essential hypertension Qualified Codes: I10 - Essential (primary) hypertension (7) Renal insufficiency Status: Chronic (8) Hyperlipidemia Status: Chronic Qualifiers: Hyperlipidemia type: mixed hyperlipidemia Qualified Codes: E78.2 - Mixed hyperlipidemia (9) CHF (congestive heart failure) Status: Chronic Qualifiers: Heart failure type: systolic Heart failure chronicity: chronic Qualified Codes: I50.22 - Chronic systolic (congestive) heart failure (10) CAD (coronary artery disease) Status: Chronic Qualifiers: Coronary Disease-Associated Artery/Lesion type: [place] artery [place] vs. transplanted heart: [place] heart Associated angina: without angina Qualified Codes: I25.10 - Atherosclerotic heart disease of [place] coronary artery without angina pectoris (11) Expressive aphasia Status: Acute (12) Diabetes mellitus Status: Chronic Qualifiers: Diabetes mellitus type: type 2 Diabetes mellitus snf insulin use: without termite inspector use Diabetes mellitus complication status: with circulatory complication Diabetes mellitus complication detail: with other circulatory complications Qualified Codes: E11.59 - Type 2 diabetes mellitus with other circulatory complications (13) COPD (chronic obstructive pulmonary disease) Status: Chronic Qualifiers: COPD type: unspecified COPD Qualified Codes: J44.9 - Chronic obstructive pulmonary disease, unspecified (14) Smoker Status: Chronic (15) Stented coronary artery Status: Chronic (16) Constipation Status: Resolved Qualifiers: Constipation type: slow transit constipation Qualified Codes: K59.01 - Slow transit constipation Resolution Date/Time: 04/03/18 @ 11:32 (17) Wheezing Status: Acute Clinical Quality Measures Admission Status Admission Dx Assessment: 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 Paroxysmal atrial fibrillation status post cardioversion not on anticoagulation Carotid artery stenosis status post left CEA COPD Cigar smoker Hypertension Hyperlipidemia Diabetes mellitus Situational depression Plan: Continue therapies Bowel and bladder maintenance of routine Appreciate cardiology management for complex cardiac history Improving strength on the right side so improving the ability to assist in ADLs May need behavioral health to evaluate depression since it may interfere with his therapies and progression DVT/VTE Risk/Contraindication: Risk Factor Score Per Nursin RFS Level Per Nursing on Admit: 4+=Very High GRISELDA SANTOS DO Apr 05, 2018 14:20
[2018-04-05 16:43] VITALS: BP 122/77
[2018-04-05] MEDS: ATORVASTATIN 80 MG (LIPITOR) TABLET PO SCH (22:00)
[2018-04-06 06:20] VITALS: BP 118/72
[2018-04-06] MEDS: inSUlin ASPART (NovoLOG) 1 UNIT/0.01 ML (CHARGE PER UNIT) SC SCH ×2 (06:21→11:04)
[2018-04-06] MEDS: PANTOPRAZOLE 20 MG TABLET (PROTONIX) PO SCH (06:56)
[2018-04-06] MEDS: GLIMEPIRIDE 4 MG (AMARYL) TAB PO SCH (06:56)
[2018-04-06] MEDS: OMEGA 3 (FISH OIL) 1000 MG CAP PO SCH ×3 (08:52→20:16)
[2018-04-06] MEDS: FUROSEMIDE 40 MG (LASIX) TAB PO SCH (08:52)
[2018-04-06] MEDS: DIGOXIN 0.125 MG (LANOXIN) TAB PO SCH (08:52)
[2018-04-06] MEDS: METHIMAZOLE TABLET 5 MG TABLET PO SCH (08:52)
[2018-04-06] MEDS: VITAMIN D3 1,000 UNITS (CHOLECALCIFEROL) TABLET PO SCH (08:52)
[2018-04-06] MEDS: AMIODARONE 200 MG (CORDARONE) TAB PO SCH (08:52)
[2018-04-06] MEDS: APIXABAN 5 MG (ELIQUIS) TABLET PO SCH ×2 (08:52→20:16)
[2018-04-06] MEDS: CARVEDILOL 6.25 MG (COREG) TAB PO SCH ×2 (08:52→20:16)
[2018-04-06] MEDS: ENALAPRIL 2.5 MG (VASOTEC) TAB PO SCH (08:53)
[2018-04-06] MEDS: RT-ALBUTEROL/IPRATROPIUM 3 ML (DUONEB) VIAL INH SCH ×3 (09:03→20:49)
--- NOTE | 2018-04-06 13:00 | PM&R Progress Note ---
Subjective HPI/CC On Admission Date Seen by Provider: Apr 06, 2018 Time Seen by Provider: 11:30 Subjective/Events-last exam Patient doing well today Expressive aphasia continues Glucose 141 so will DC Accu-Chek before meals/at bedtime and changed to daily No pain is reported Right arm is improving Review of Systems Neurological: Weakness, Numbness, Incoordination, Change in speech Objective Exam Vital Signs Vital Signs Date Time Temp Pulse Resp B/P (MAP) Pulse Ox O2 Delivery O2 Flow Rate FiO2 04/06/18 09:03 92 Room Air 04/06/18 08:51 65 04/06/18 06:20 97.6 18 118/72 (87) Capillary Refill : General Appearance: No Apparent Distress, WD/WN, Chronically ill Respiratory: Chest Non Tender, Lungs Clear, Normal Breath Sounds, No Accessory Muscle Use, No Respiratory Distress Cardiovascular: Regular Rate, Rhythm, No Edema, No Gallop, No JVD, No Murmur, Normal Peripheral Pulses Neurologic/Psychiatric: Alert, Oriented x3, Normal Mood/Affect, Motor Weakness (right hand and expressive aphasia) Results/Procedures Lab Patient resulted labs reviewed. 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 aphasia with improved right upper and lower extremity function now but expressive aphasia no significant changes yet and DELMY revealed no thrombosis CAD s/p stents in the past Congestive heart failure chronic systolic dysfunction ejection fraction 35 percent Status post ICD implanted by Dr Raphael at [facility] Paroxysmal atrial fibrillation status post cardioversion not on anticoagulation Carotid artery stenosis status post left CEA COPD Cigar smoker Hypertension Hyperlipidemia Diabetes mellitus Situational depression Constipation resolved Wheezing on exam 2 days ago now resolved after Nebs Plan: Continue therapies Bowel and bladder maintenance of routine Appreciate cardiology management for complex cardiac history Improving strength on the right side so improving the ability to assist in ADLs May need behavioral health to evaluate depression since it may interfere with his therapies and progression BM regimen Nebs with IS to continue Diagnosis/Problems Diagnosis/Problems (1) Cerebrovascular accident (CVA) with involvement of right side of body Status: Acute (2) ICD (implantable cardioverter-defibrillator) in place Status: Chronic (3) Situational depression Status: Acute (4) Pacemaker Status: Chronic (5) Aphasia Status: Acute (6) Hypertension Status: Chronic Qualifiers: Hypertension type: essential hypertension Qualified Codes: I10 - Essential (primary) hypertension (7) Renal insufficiency Status: Chronic (8) Hyperlipidemia Status: Chronic Qualifiers: Hyperlipidemia type: mixed hyperlipidemia Qualified Codes: E78.2 - Mixed hyperlipidemia (9) CHF (congestive heart failure) Status: Chronic Qualifiers: Heart failure type: systolic Heart failure chronicity: chronic Qualified Codes: I50.22 - Chronic systolic (congestive) heart failure (10) CAD (coronary artery disease) Status: Chronic Qualifiers: Coronary Disease-Associated Artery/Lesion type: [place] artery [place] vs. transplanted heart: [place] Associated angina: without angina Qualified Codes: I25.10 - Atherosclerotic heart disease of [place] coronary artery without angina pectoris (11) Expressive aphasia Status: Acute (12) Diabetes mellitus Status: Chronic Qualifiers: Diabetes mellitus type: type 2 Diabetes mellitus group home insulin use: without exterminator helper use Diabetes mellitus complication status: with circulatory complication Diabetes mellitus complication detail: with other circulatory complications Qualified Codes: E11.59 - Type 2 diabetes mellitus with other circulatory complications (13) COPD (chronic obstructive pulmonary disease) Status: Chronic Qualifiers: COPD type: unspecified COPD Qualified Codes: J44.9 - Chronic obstructive pulmonary disease, unspecified (14) Smoker Status: Chronic (15) Stented coronary artery Status: Chronic (16) Constipation Status: Resolved Qualifiers: Constipation type: slow transit constipation Qualified Codes: K59.01 - Slow transit constipation Resolution Date/Time: 04/03/18 @ 11:32 (17) Wheezing Status: Acute Clinical Quality Measures Admission Status Admission Dx Assessment: 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 aphasia CAD s/p stents in the past Congestive heart failure chronic systolic dysfunction ejection fraction 35 percent Status post ICD implanted by Dr Raphael at [facility] Paroxysmal atrial fibrillation status post cardioversion not on anticoagulation Carotid artery stenosis status post left CEA COPD Cigar smoker Hypertension Hyperlipidemia Diabetes mellitus Situational depression Plan: Continue therapies Bowel and bladder maintenance of routine Appreciate cardiology management for complex cardiac history Improving strength on the right side so improving the ability to assist in ADLs May need behavioral health to evaluate depression since it may interfere with his therapies and progression DVT/VTE Risk/Contraindication: Risk Factor Score Per Nursin RFS Level Per Nursing on Admit: 4+=Very High GRISELDA SANTOS DO Apr 06, 2018 13:00
--- NOTE | 2018-04-06 15:10 | Cardiology Progress Note ---
Cardiology SOAP Progress Note Subjective: No cardiac complaints. Objective: I&O/Vital Signs 04/06/18 04/06/18 04/06/18 04/06/18 06:20 08:00 08:51 09:03 Temp 97.6 Pulse 59 65 Resp 18 B/P (MAP) 118/72 (87) Pulse Ox 100 96 92 O2 Delivery Room Air Room Air Room Air 04/06/18 00:00 Intake Total 1120 ml Output Total 340 ml Balance 780 ml Weight (Pounds): 190 Weight (Ounces): 1.6 Weight (Calculated Kilograms): [id number] Constitutional: No appears stated age; AAO x 3; No apparent distress, No PERRL , No well-developed, No well-nourished, No other Respiratory: No accessory muscle use, No respiratory distress, No chest tender , No chest expansion is symmetric; chest is bilaterally symmetric; No lungs clear to percussion; lungs clear to auscultation; No crackles, No rhonchi, No rales, No stridor, No wheezing, No pleural rub, No other Cardiovascular: regular rate-rhythm; No irregularly irregular, No extra beats, No parasternal heave is noted, No JVD, No edema, No bradycardia, No tachycardia , No point of maximal impulse, No cardiac thrills are palpable; S1 and S2; No gallop/S3, No gallop/S4, No diastolic murmur, No systolic murmur, No friction rub, No click, No other Gastrointestional: No tender, No soft, No round, No distended, No pulsatile mass, No organomegaly, No guarding, No rebound, No tenderness, No hernia, No mass, No audible bowel sounds, No abnormal bowel sounds, No abdominal bruits, No spleenomegaly, No other Extremities: No normal range of motion, No non-tender, No normal inspection, No pedal edema, No calf tenderness, No normal capillary refill, No pelvis stable , No calf tenderness, No inflammation, No pedal edema, No slow capillary refill , No swelling, No other, No abrasion, No clubbing, No cyanosis, No ecchymosis, No laceration, No no lower extremity edema bilateral, No significant edema, No tenderness, No wound Neurologic/Psychiatric: alert, normal mood/affect, oriented x 3, motor weakness Skin: No normal color, No warm/dry, No cyanosis, No cool, No diaphoresis, No damp, No ecchymosis, No jaundice, No mottled, No pallor, No rash, No tattoos/ piercings, No ulcerations, No rash on exposed areas, No ulcerations on exposed areas, No other Results/Procedures: Labs Laboratory Tests 04/05/18 16:42: Glucometer 130H 04/05/18 20:42: Glucometer 115H 04/06/18 06:11: Glucometer 96 04/06/18 11:01: Glucometer 141H A/P: Assessment/Dx: Admission Diagnosis CVA Coronary artery disease Congestive heart failure, chronic compensated left ventricular systolic dysfunction, nonischemic cardiomyopathy Hypertension Plan: Assessment/Plan 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 Raphael, DELMY was done, no source of embolization was noted, no ASD or PFO, left atrium and left atrial appendage are clear, diffuse left ventricular hypokinesia with ejection fraction 40 percent. History of paroxysmal atrial fibrillation, interrogation of his device did not show any episodes of atrial fibrillation, continue to monitor Coronary artery disease, cardiac catheterization done on April 13, 2015 revealed total occlusion of large dominant right coronary artery with collateral filling the distal right from the left side. Total occlusion of the mid proper circumflex artery, small artery receiving collateral from left anterior descending. 40-50 percent mid LAD stenosis. Nonobstructive disease. EF 30 percent, he was referred to had 4 stents overlapping in the right coronary artery done in April 2015, returned in October 2015 and had intervention to the posterior lateral branch, had a cardiac catheterization done at in June 2017 reported as patent stent in the right coronary artery and right posterior descending artery. Chronically occluded obtuse marginal branch that did not change compared to the previous study. Conservative management was recommended Congestive heart failure, chronic compensated LV dysfunction; had an echocardiogram done at and reported to have ejection fraction 35 percent, Status post ICD implanted by Dr. Sanjay Raphael, [employer] (h/o sudden cardiac and ventricular tachycardia) managed and followed at Carotid artery stenosis status post left CEA in 2011. Carotid u/s at Dr Rosenberg's in Dec 2017 showed 1-39% bilat ICA stenoses COPD, still smoking one cigar a day Hypertension, monitor blood pressure Hyperlipidemia, monitor Lipids Diabetes mellitus-managed by primary care physician Thank you for your consultation. Please call me if you have any questions. Vibha Plaza MD, FACP, FACC, FSCAI, FHRS, CCDS Interventional Cardiology Cardiac Electrophysiology Vascular Medicine and Endovascular Interventions Cade PLAZA MD Apr 06, 2018 3:10 pm
[2018-04-06 17:08] VITALS: BP 139/75
[2018-04-06] MEDS: ATORVASTATIN 80 MG (LIPITOR) TABLET PO SCH (20:16)
[2018-04-07 05:11] VITALS: BP 103/62
[2018-04-07] MEDS: PANTOPRAZOLE 20 MG TABLET (PROTONIX) PO SCH (06:29)
[2018-04-07] MEDS: GLIMEPIRIDE 4 MG (AMARYL) TAB PO SCH (06:29)
--- NOTE | 2018-04-07 08:44 | Cardiology Progress Note ---
Subjective Date Seen by Provider: Apr 07, 2018 Time Seen by Provider: 08:43 Subjective/Events-last exam Patient in bed, reports right sided weakness continues to improve. Denies any chest pain or dyspnea. Objective-Cardiology Exam Last Set of Vital Signs Vital Signs 04/07/18 05:11 Temp 97.8 Pulse 60 Resp 18 B/P (MAP) 103/62 (76) Pulse Ox 95 O2 Delivery Room Air Capillary Refill : I&O Intake and Output 04/07/18 00:00 Intake Total 890 ml Balance 890 ml Intake Oral 890 ml # Voids 4 General: Alert, Oriented X3, Cooperative, No Acute Distress HEENT: Atraumatic, PERRLA, EOMI, Mucous Memb Moist/[place] Neck: Supple, No JVD, No Thyromegaly, +2 Carotid Pulse No Bruit Lungs: Clear to Auscultation, Normal Air Movement Heart: Regular Rate, Normal S1, Normal S2, No Murmurs, Gallops Abdomen: Normal Bowel Sounds, Soft, No Tenderness, No Hepatosplenomegaly, No Masses Extremities: No Clubbing, No Cyanosis, No Edema, Normal Pulses, No Tenderness/ Swelling Skin: No Rashes, No Breakdown, No Significant Lesion Neuro: Sensation Intact, Other (right sided hemiparesis 3/5 upper and lower, global weakness, aphasia) A/P-Cardiology Admission Diagnosis CVA Coronary artery disease Congestive heart failure, chronic compensated left ventricular systolic dysfunction, nonischemic cardiomyopathy Hypertension Assessment/Plan 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 Raphael, DELMY was done, no source of embolization was noted, no ASD or PFO, left atrium and left atrial appendage are clear, diffuse left ventricular hypokinesia with ejection fraction 40 percent. History of paroxysmal atrial fibrillation, interrogation of his device did not show any episodes of atrial fibrillation, continue to monitor Coronary artery disease, cardiac catheterization done on April 13, 2015 revealed total occlusion of large dominant right coronary artery with collateral filling the distal right from the left side. Total occlusion of the mid proper circumflex artery, small artery receiving collateral from left anterior descending. 40-50 percent mid LAD stenosis. Nonobstructive disease. EF 30 percent, he was referred to had 4 stents overlapping in the right coronary artery done in April 2015, returned in October 2015 and had intervention to the posterior lateral branch, had a cardiac catheterization done at in June 2017 reported as patent stent in the right coronary artery and right posterior descending artery. Chronically occluded obtuse marginal branch that did not change compared to the previous study. Conservative management was recommended Congestive heart failure, chronic compensated LV dysfunction; had an echocardiogram done at and reported to have ejection fraction 35 percent, Status post ICD implanted by Dr. Sanjay Raphael, [employer] (h/o sudden cardiac and ventricular tachycardia) managed and followed at Carotid artery stenosis status post left CEA in 2011. Carotid u/s at Dr Rosenberg's in Dec 2017 showed 1-39% bilat ICA stenoses COPD, still smoking one cigar a day Hypertension, monitor blood pressure Hyperlipidemia, monitor Lipids Diabetes mellitus-managed by primary care physician Clinical Quality Measures DVT/VTE Risk/Contraindication: Risk Factor Score Per Nursin RFS Level Per Nursing on Admit: 4+=Very High MARVIN HORTON Apr 07, 2018 08:44
[2018-04-07] MEDS: FUROSEMIDE 40 MG (LASIX) TAB PO SCH (08:45)
[2018-04-07] MEDS: DIGOXIN 0.125 MG (LANOXIN) TAB PO SCH (08:46)
[2018-04-07] MEDS: VITAMIN D3 1,000 UNITS (CHOLECALCIFEROL) TABLET PO SCH (08:46)
[2018-04-07] MEDS: AMIODARONE 200 MG (CORDARONE) TAB PO SCH (08:46)
[2018-04-07] MEDS: ENALAPRIL 2.5 MG (VASOTEC) TAB PO SCH (08:46)
[2018-04-07] MEDS: METHIMAZOLE TABLET 5 MG TABLET PO SCH (08:46)
[2018-04-07] MEDS: APIXABAN 5 MG (ELIQUIS) TABLET PO SCH ×2 (08:47→20:26)
[2018-04-07] MEDS: CARVEDILOL 6.25 MG (COREG) TAB PO SCH ×2 (08:47→20:26)
[2018-04-07] MEDS: OMEGA 3 (FISH OIL) 1000 MG CAP PO SCH ×3 (08:47→20:26)
--- NOTE | 2018-04-07 08:58 | PM&R Progress Note ---
Subjective This was a face to face visit with the patient. Date Seen by Provider: Apr 07, 2018 Time Seen by Provider: 08:30 Subjective/Events-last exam Patient was seen in bed in his room. Patient has no concerns Jay mcadams is will come and evaluate him tomorrow but can't do any special diet so speech therapy will work with him today No pain is reported Ambulating well Right upper extremity still with stroke residual but improving by the day Expressive aphasia continues but patient able to confer slightly Checked all meds and labs Review of Systems Neurological: Weakness, Numbness, Incoordination, Change in speech Objective Physician Exam Last Set of Vital Signs Vital Signs Date Time Temp Pulse Resp B/P (MAP) Pulse Ox O2 Delivery O2 Flow Rate FiO2 04/07/18 05:11 97.8 60 18 103/62 (76) 95 Room Air Capillary Refill : I&O Intake and Output 04/07/18 00:00 Intake Total 890 ml Balance 890 ml Intake Oral 890 ml # Voids 4 General: Alert, Oriented X3, Cooperative, No Acute Distress HEENT: Atraumatic, PERRLA, EOMI, Mucous Memb Moist/[place] Neck: Supple, No JVD, No Thyromegaly, +2 Carotid Pulse No Bruit Lungs: Clear to Auscultation, Normal Air Movement Heart: Regular Rate, Normal S1, Normal S2, No Murmurs, Gallops Abdomen: Normal Bowel Sounds, Soft, No Tenderness, No Hepatosplenomegaly, No Masses Extremities: No Clubbing, No Cyanosis, No Edema, Normal Pulses, No Tenderness/ Swelling Skin: No Rashes, No Breakdown, No Significant Lesion Neuro: Sensation Intact, Other (right sided hemiparesis 3/5 upper and lower, global weakness, aphasia) Results Lab Data Laboratory Tests 04/04/18 11:18: Glucometer 114H 04/04/18 16:01: Glucometer 136H 04/04/18 20:44: Glucometer 120H 04/05/18 06:22: Glucometer 97 04/05/18 11:37: Glucometer 163H 04/05/18 16:42: Glucometer 130H 04/05/18 20:42: Glucometer 115H 04/06/18 06:11: Glucometer 96 04/06/18 11:01: Glucometer 141H 04/07/18 04:24: Glucometer 91 Current Funtional Status Patient improving Jay powers. Assess him for discharge tomorrow Expressive aphasia will continue on therapy Assessment/Plan Assessment and Plan (1) Cerebrovascular accident (CVA) with involvement of right side of body Status: Acute (2) ICD (implantable cardioverter-defibrillator) in place Status: Chronic (3) Situational depression Status: Acute (4) Pacemaker Status: Chronic (5) Aphasia Status: Acute (6) Hypertension Qualifiers: Qualified Codes: I10 - Essential (primary) hypertension Status: Chronic (7) Renal insufficiency Status: Chronic (8) Hyperlipidemia Qualifiers: Qualified Codes: E78.2 - Mixed hyperlipidemia Status: Chronic (9) CHF (congestive heart failure) Qualifiers: Qualified Codes: I50.22 - Chronic systolic (congestive) heart failure Status: Chronic (10) CAD (coronary artery disease) Qualifiers: Qualified Codes: I25.10 - Atherosclerotic heart disease of [place] coronary artery without angina pectoris Status: Chronic (11) Expressive aphasia Status: Acute (12) Diabetes mellitus Qualifiers: Qualified Codes: E11.59 - Type 2 diabetes mellitus with other circulatory complications Status: Chronic (13) COPD (chronic obstructive pulmonary disease) Qualifiers: Qualified Codes: J44.9 - Chronic obstructive pulmonary disease, unspecified Status: Chronic (14) Smoker Status: Chronic (15) Stented coronary artery Status: Chronic (16) Constipation Qualifiers: Qualified Codes: K59.01 - Slow transit constipation Status: Resolved (17) Wheezing Status: Resolved Co-Morbidities that are continuing to impact the rehab process: (include details ) GRISELDA SANTOS DO Apr 07, 2018 08:58
--- NOTE | 2018-04-07 09:56 | Occupational Ther Daily Note ---
OT Current Status-Daily Note Subjective Pt alert, lying in bed. Pt agrees to therapy. Pt to discharge tomorrow. No c/ o pain. Mental Status/Objective Patient Orientation: Person, Place, Time, Situation Therapy Code Descriptions/Definitions Functional [place] Measure: 0=Not Assessed/NA 4=Minimal Assistance 1=Total Assistance 5=Supervision or Setup 2=Maximal Assistance 6=Modified [place] 3=Moderate Assistance 7=Complete [place] ADL-Treatment Pt agrees to shower. No LOB noted throughout therapy session. Pt retrieves clothing by self. After therapy, pt lying in bed with call light/phone in reach. All needs met in room. Therapy Code Descriptions/Definitions Functional [place] Measure: 0=Not Assessed/NA 4=Minimal Assistance 1=Total Assistance 5=Supervision or Setup 2=Maximal Assistance 6=Modified [place] 3=Moderate Assistance 7=Complete Stephan Therapy Quality Codes: 6 Independent with activity with or without an assistive device 5 Patient requires set up or clean up by helper. Patient completes activity by themselves 4 Supervision or touching assist (CGA). [place] provide cues , steadying assist 3 The helper provides less than half the effort to complete the activity 2 The helper provides more than half the effort to complete the activity 1 Dependent. The helper does all the effort to complete an activity 7 Patient refused to complete or attempt activity 9 The patient did not perform the activity before the current illness or injury 88 Not attempted due to Medical conditions or safety concerns Eating (FIM): 6 (Pt has demonstrated ability to complete own set up and use regular utensils to eat.) Eating (QC): 6 Grooming (FIM): 7 (Standing at sink, pt able to complete by self.) Oral Hygiene (QC): 6 Bathing (FIM): 6 (Using shower bench, grabbar, hand held shower pt able to complete by self.) Bathing Location: L Arm, R Arm, L Upper Leg, R Upper Leg, L Lower Leg ( including foot), R Lower Leg (including foot), Chest, Abdomen, Buttocks, Perineal Area Shower/Bathe Self (QC): 6 Upper Body (FIM): 7 (Retrieving own clothing, pt able to complete by self.) Upper Body Dressing (QC): 6 Lower Body Dressing (FIM): 4 (Retrieves own clothing pt dons/doffs clothing by self assist only to hook overall.) Lower Body Dressing (QC): 3 On/Off Footwear (QC): 6 Toileting (FIM): 7 (Pt able to complete by self.) Toileting Hygiene (QC): 6 Transfers (B, C, W/C) (FIM): 7 (Completes by self.) Toilet/Commode Transfer (FIM): 7 (Able to complete by self.) Toilet Transfer (QC): 6 Shower Transfer(FIM): 6 (Using grabbars, hand held shower and shower bench.) After therapy, pt lying in bed with call light/phone in reach. All needs met in room. OT Short Term Goals Short Term Goals Time Frame: Apr 04, 2018 Grooming(FIM): 5 Bathing(FIM): 4 Upper Body Dressing(FIM): 4 Lower Body Dressing(FIM): 4 Toileting(FIM): 4 Additional Short Term Goals: 1-Demonstrate ADL Tasks, 2-Verbalize Understanding , 3-ImproveStrength/Kristine 1=Demonstrate adherence to instructed precautions during ADL tasks. 2=Patient will verbalize/demonstrate understanding of assistive devices/ modifications for ADL. 3=Patient will improve strength/tolerance for activity to enable patient to perform ADL's. OT Fpc Goals Treater Helper Goals Time Frame: Apr 18, 2018 Eating (FIM): 6 (met) Eating (QC): 6 (et) Groomin (met) Oral Hygiene (QC): 6 (met) Bathing(FIM): 5 Shower/Bathe Self (QC): 4 (met) Upper Body Dressing(FIM): 6 (met) Upper Body Dressing (QC): 6 (met) Lower Body Dressing(FIM): 5 (met) Lower Body Dressing (QC): 5 (met) On/Off Footwear (QC): 5 (met) Toileting(FIM): 6 (met) Toileting Hygiene (QC): 6 (met) Toilet/Commode Transfer(FIM): 6 (met) Toilet/Commode Transfer (QC): 6 (met) Shower Transfer(FIM): 5 (met) Additional Goals: 1-Demonstrate ADL Tasks, 2-Verbalize Understanding, 3- ImproveStrength/Kristine 1=Demonstrate adherence to instructed precautions during ADL tasks. 2=Patient will verbalize/demonstrate understanding of assistive devices/ modifications for ADL. 3=Patient will improve strength/tolerance for activity to enable patient to perform ADL's. OT Education/Plan Discharge Recommendations Plan/Recommendations: Continue POC Therapy D/C Recommendations: Assisted Living, Occupational Therapy Home Care, Occupational Therapy Outpatient Treatment Plan/Plan of Care Patient would benefit from OT for education, treatment and training to promote independence in ADL's, mobility, safety and/or upper extremity function for ADL' s. Plan of Care: ADL Retraining, Functional Mobility, Group Exercise/Act as Ind, UE Funct Exercise/Act, UE Neuromus Re-Ed/Coord, Visual/Perceptual Retrain Treatment Duration: Apr 18, 2018 Frequency: At least 5 of 7 days/Wk (IRF) Estimated Hrs Per Day: 1.5 hours per day Agreement: Yes Rehab Potential: Fair Time/GCodes Start Time: 09:00 Stop Time: 09:50 Total Time Billed (hr/min): 50 Billed Treatment Time 1 [id number] 3 (50 min) SAIRA DURAN Apr 07, 2018 09:56
[2018-04-07] MEDS: RT-ALBUTEROL/IPRATROPIUM 3 ML (DUONEB) VIAL INH SCH ×2 (10:49→19:32)
--- NOTE | 2018-04-07 10:58 | Physical Therapy Daily Note ---
PT Daily Note-Current Subjective Pt. has difficulty with speech but smiles and expresses self in partial sentences and single words/phrases. Agreeable to Rx Pain Numeric Pain Scale: 0-No Pain Mental Status Patient Orientation: Person, Place, Time, Situation, Normal For Age Transfers Therapy Code Descriptions/Definitions Functional [place] Measure: 0=Not Assessed/NA 4=Minimal Assistance 1=Total Assistance 5=Supervision or Setup 2=Maximal Assistance 6=Modified [place] 3=Moderate Assistance 7=Complete [place] Therapy Quality Codes: 6 Independent with activity with or without an assistive device 5 Patient requires set up or clean up by helper. Patient completes activity by themselves 4 Supervision or touching assist (CGA). [place] provide cues , steadying assist 3 The helper provides less than half the effort to complete the activity 2 The helper provides more than half the effort to complete the activity 1 Dependent. The helper does all the effort to complete an activity 7 Patient refused to complete or attempt activity 9 The patient did not perform the activity before the current illness or injury 88 Not attempted due to Medical conditions or safety concerns Transfers (B, C, W/C) (FIM): 6 Scootin Rollin Roll Left to Right (QC): 6 Supine to/from Sit: 6 Sit to/from Stand: 6 Sit to Lying (QC): 6 Sit to Stand (QC): 6 Chair/Qhd-zo-Gpide Xfer(QC): 6 Bed to/from Chair: 6 Car Transfer (QC): 6 Weight Bearing Right Lower Extremity: Right Full Weight Bearing Left Lower Extremity: Left Full Weight Bearing Gait Training Does the Patient Walk?: Yes Gait (FIM): 6 Distance (FIM): 3=150 ft (200x2) Walk 10 feet (QC): 6 Walk 50 ft with 2 Turns(QC): 6 Walk 150 ft (QC): 6 Walking 10ft/uneven surface-QC: 6 Gait Level of Assist: 6 Gait Persons Needed: 0 Gait Assistive Device: None slow, toe out, broad ANGY, no LOB for side, and retro gait as well as 360 degree turns Stair Training Stair Training: Handrails/: 1 handrail Stairs (FIM): 5 #of Steps: 4 1 Step (curb) (QC): 5 4 Steps (QC): 5 Stairs: Pattern: Step to Level of Assist: 5 household exception Balance Picking up an Object (QC): 5 Exercises NuStep Minutes: 12 NuStep Workload: 3 Assessment Current Status: Good Progress meets goals PT Grid Inspector Goals Grid Inspector Goals PT Skilled Nursing Goals Time Frame: Apr 19, 2018 Transfers (B,C,W/C) (FIM): 6 Sit to Lying (QC): 6 Lying-Sitting on Side/Bed(QC): 6 Sit to Stand (QC): 6 Rollin Roll Left to Right (QC): 6 Chair/Qjh-xx-Aacav Xfer(QC): 6 Car Transfer (QC): 5 Does the Patient Walk: Yes Gait (FIM): 6 Gait distance (FIM): 3=150 ft Distance: 250' Walk 10 feet (QC): 6 Walk 10ft-Uneven Surface(QC): 6 Walk 50ft with 2 Turns (QC): 6 Walk 150 ft (QC): 6 Gait Level of Assist: 6 Gait Assistive Device: None Stairs (FIM): 2 # of Steps: 4 1 Step (curb) (QC): 4 4 Steps (QC): 4 12 Steps (QC): 9 Stairs Level Of Assist: 4 Picking up an Object (QC): 5 PT Plan Treatment/Plan Treatment Plan: Continue Plan of Care Treatment Plan: Bed Mobility, Education, Functional Activity Kristine, Functional Strength, Group Therapy, Gait, Safety, Therapeutic Exercise, Transfers Treatment Duration: Apr 19, 2018 Frequency: At least 5 of 7 days/Wk (IRF) Estimated Hrs Per Day: 1.5 hours per day Patient and/or Family Agrees t: Yes Safety Risks/Education Patient Education: Gait Training, Transfer Techniques, Steps, Correct Positioning, Disease Process, Safety Issues Teaching Recipient: Patient Teaching Methods: Demonstration, Discussion Response to Teaching: Verbalize Understanding, Return Demonstration, Reinforcement Needed Time/GCodes Time In: 1015 Time Out: 1100 Total Billed Treatment Time: 45 Total Billed Treatment 1,GT10m,FA20m,EX15m G Codes Necessary: ELIZA Garnett PEDIATRICIAN ACTIVE PRACTICE Apr 07, 2018 10:58
--- NOTE | 2018-04-07 11:04 | Cardiology Progress Note ---
Subjective Date Seen by Provider: Apr 07, 2018 Time Seen by Provider: 11:03 Subjective/Events-last exam Patient is receiving physical therapy, reporting improvement. Review of Systems General: No Chills, No Night Sweats, No Fatigue, No Malaise, No Appetite, No Other HEENT: No Head Aches, No Visual Changes, No Eye Pain, No Ear Pain, No Dysphasia , No Sinus Congestion, No Post Nasal Drip, No Sore Throat, No Other Pulmonary: No Dyspnea, No Cough, No Pleuritic Chest Pain, No Other Cardiovascular: No: Chest Pain, Palpitations, Orthopnea, Paroxysmal Noc. Dyspnea, Edema, Lt Headedness, Other Objective-Cardiology Exam Last Set of Vital Signs Vital Signs 04/07/18 05:11 Temp 97.8 Pulse 60 Resp 18 B/P (MAP) 103/62 (76) Pulse Ox 95 O2 Delivery Room Air Capillary Refill : I&O Intake and Output 04/07/18 00:00 Intake Total 890 ml Balance 890 ml Intake Oral 890 ml # Voids 4 General: Alert, Oriented X3, Cooperative, No Acute Distress HEENT: Atraumatic, PERRLA, EOMI, Mucous Memb Moist/[place] Neck: Supple, No JVD, No Thyromegaly, +2 Carotid Pulse No Bruit Lungs: Clear to Auscultation, Normal Air Movement Heart: Regular Rate, Normal S1, Normal S2, No Murmurs, Gallops Abdomen: Normal Bowel Sounds, Soft, No Tenderness, No Hepatosplenomegaly, No Masses Extremities: No Clubbing, No Cyanosis, No Edema, Normal Pulses, No Tenderness/ Swelling Skin: No Rashes, No Breakdown, No Significant Lesion Neuro: Sensation Intact, Other (right sided hemiparesis 3/5 upper and lower, global weakness, aphasia) Results Lab Laboratory Tests Test 04/07/18 04:24 Range/Units Glucometer 91 70-110 MG/DL A/P-Cardiology Admission Diagnosis CVA Coronary artery disease Congestive heart failure, chronic compensated left ventricular systolic dysfunction, nonischemic cardiomyopathy Hypertension Assessment/Plan 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 Raphael, DELMY was done, no source of embolization was noted, no ASD or PFO, left atrium and left atrial appendage are clear, diffuse left ventricular hypokinesia with ejection fraction 40 percent. History of paroxysmal atrial fibrillation, interrogation of his device did not show any episodes of atrial fibrillation, continue to monitor Coronary artery disease, cardiac catheterization done on April 13, 2015 revealed total occlusion of large dominant right coronary artery with collateral filling the distal right from the left side. Total occlusion of the mid proper circumflex artery, small artery receiving collateral from left anterior descending. 40-50 percent mid LAD stenosis. Nonobstructive disease. EF 30 percent, he was referred to had 4 stents overlapping in the right coronary artery done in April 2015, returned in October 2015 and had intervention to the posterior lateral branch, had a cardiac catheterization done at in June 2017 reported as patent stent in the right coronary artery and right posterior descending artery. Chronically occluded obtuse marginal branch that did not change compared to the previous study. Conservative management was recommended Congestive heart failure, chronic compensated LV dysfunction; had an echocardiogram done at and reported to have ejection fraction 35 percent, Status post ICD implanted by Dr. Sanjay Raphael, [employer] (h/o sudden cardiac and ventricular tachycardia) managed and followed at Carotid artery stenosis status post left CEA in 2011. Carotid u/s at Dr Rosenberg's in Dec 2017 showed 1-39% bilat ICA stenoses COPD, still smoking one cigar a day Hypertension, monitor blood pressure Hyperlipidemia, monitor Lipids Diabetes mellitus-managed by primary care physician Clinical Quality Measures DVT/VTE Risk/Contraindication: Risk Factor Score Per Nursin RFS Level Per Nursing on Admit: 4+=Very High TAYLOR ROSENBERG MD Apr 07, 2018 11:04 am
--- NOTE | 2018-04-07 13:06 | Speech Therapy Daily Note ---
Speech Daily Progress Note Subjective Date Seen by Provider: Apr 07, 2018 Time Seen by Provider: 00:30 Patient was anxious to try his diet upgrade today. Objective Patient had a Dysphagia II tray today for lunch without any s/s of aspiration. Assessment Assessment Current Status: Good Progress Treatment Plan Continue Plan of Care Communication Comprehension: 7 Expression: 5 Social Cognition Social Interaction: 7 Problem Solvin Memory: 6 Speech Short Term Goals Short Term Goals Short Term Goals 1) Patient will tolerate least restrictive diet level without s/s of aspiration at 90% or greater. 2) Patient will utilize compensatory strategies as trained with 90% or greater. 3) Patient patient will complete various verbal expressive tasks ( confrontational naming, sentence completion, etc.) with 80% or greater. Speech Supervisor Coin Machine Goals Supervisor Coin Machine Goals Patient will maintain adequate nutrition/hydration via safe, effective swallow function. Patient will demonstrate increased auditory comprehension and verbal expression to be able to carry on a simple conversation with min assist. Speech-Plan Patient/Family Goals Patient/Family Goals: Patient plans to return to his assisted living apartment tomorrow. Treatment Plan Speech Therapy Treatment Plan: Continue Plan of Care Patient was upgraded to a Dysphagia II diet today. Treatment Duration: Apr 08, 2018 Frequency: 5 times per week Estimated Hrs Per Day: .25 hour per day Rehab Potential: Fair Barriers to Learning: Patient has expressive aphasia. Pt/Family Agrees to Plan: Yes Safety Risks/Education Teaching Recipient: Patient Teaching Methods: Discussion Response to Teaching: Verbalize Understanding Education Topics Provided: Compensatory strategies to continue when he returns home. Time Speech Therapy Time In: 12:00 Speech Therapy Time Out: 12:30 Total Billed Time: 30 Billed Treatment Time 1, DEV Lael Apr 07, 2018 13:05
--- NOTE | 2018-04-07 15:28 | Therapy Group Daily Note ---
Therapy Daily Group Note Patient Education Topic Home Safety, Other List Below (transfer techniques ie car, bed, chair and tub/ shower) Exercises LE Seated Exercise, UE Exercise Other/Notes Pt participated in group therapy with 4 to 1 ratio. Goals of session: Understanding of safe transfers (car, bed, chair, tub/shower) .(met) Remember one seated exercise UE or LE to lead group.(met) Complete UE/ LE seated exercises.(met) Pt ambulated with no AD SBA escort to [facility] for OT/PT group. Group consisted of introductions (name, place, favorite place to visit*[facility]*) , socialization, seated UE/LE exercises, education on safe transfers and 5 memory words (dylan, VW, 1, dog, cinnamon candy). Pt introduced self appropriately and actively listened to peers. Pt able to complete UE/LE seated exercises . Pt lead shoulder flexion exercise, 10x's. Pt acknowledged understanding of transfers by nodding head in acknowledgement. After group, pt lying in bed with call light/phone in reach. . All needs met in room. Start Time: 13:00 Stop Time: 14:15 Total Billed Treatment Time: 75 Total Billed Treatment 1,GRP ELIZA SHAVER FUEL YARD OPERATOR Apr 07, 2018 15:28
--- NOTE | 2018-04-07 17:05 | NUR ---
PT EATING FAIRLY WELL, 75% MEALS. WEIGHT STABLE. INTAKE MEETING NEEDS AT THIS TIME. CONT SAME.
[2018-04-07 17:34] VITALS: BP 120/66
[2018-04-07] MEDS: ATORVASTATIN 80 MG (LIPITOR) TABLET PO SCH (20:26)
[2018-04-08 05:54] VITALS: BP 97/56
[2018-04-08] MEDS: PANTOPRAZOLE 20 MG TABLET (PROTONIX) PO SCH (06:01)
[2018-04-08] MEDS: GLIMEPIRIDE 4 MG (AMARYL) TAB PO SCH (06:01)
[2018-04-08] MEDS: RT-ALBUTEROL/IPRATROPIUM 3 ML (DUONEB) VIAL INH SCH (07:09)
--- NOTE | 2018-04-08 08:26 | Cardiology Progress Note ---
Subjective Date Seen by Provider: Apr 08, 2018 Time Seen by Provider: 08:25 Subjective/Events-last exam patient is laying down in bed, feeling better, no new complaint Review of Systems General: No Chills, No Night Sweats, No Fatigue, No Malaise, No Appetite, No Other HEENT: No Head Aches, No Visual Changes, No Eye Pain, No Ear Pain, No Dysphasia , No Sinus Congestion, No Post Nasal Drip, No Sore Throat, No Other Pulmonary: No Dyspnea, No Cough, No Pleuritic Chest Pain, No Other Objective-Cardiology Exam Last Set of Vital Signs Vital Signs 04/08/18 04/08/18 05:54 07:12 Temp 98.3 Pulse 63 Resp 18 B/P (MAP) 97/56 (70) Pulse Ox 92 O2 Delivery Room Air Capillary Refill : I&O Intake and Output 04/08/18 00:00 Intake Total 1240 ml Balance 1240 ml Intake Oral 1240 ml # Voids 6 # Bowel Movements 2 General: Alert, Oriented X3, Cooperative, No Acute Distress HEENT: Atraumatic, PERRLA, EOMI, Mucous Memb Moist/[place] Neck: Supple, No JVD, No Thyromegaly, +2 Carotid Pulse No Bruit Lungs: Clear to Auscultation, Normal Air Movement Heart: Regular Rate, Normal S1, Normal S2, No Murmurs, Gallops Abdomen: Normal Bowel Sounds, Soft, No Tenderness, No Hepatosplenomegaly, No Masses Extremities: No Clubbing, No Cyanosis, No Edema, Normal Pulses, No Tenderness/ Swelling Skin: No Rashes, No Breakdown, No Significant Lesion Neuro: Sensation Intact, Other (right sided hemiparesis 3/5 upper and lower, global weakness, aphasia) Results Lab Laboratory Tests Test 04/08/18 05:26 Range/Units Glucometer 85 70-110 MG/DL A/P-Cardiology Admission Diagnosis CVA Coronary artery disease Congestive heart failure, chronic compensated left ventricular systolic dysfunction, nonischemic cardiomyopathy Hypertension Assessment/Plan 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 Raphael, DELMY was done, no source of embolization was noted, no ASD or PFO, left atrium and left atrial appendage are clear, diffuse left ventricular hypokinesia with ejection fraction 40 percent. Continue with physical therapy History of paroxysmal atrial fibrillation, interrogation of his device did not show any episodes of atrial fibrillation, continue to monitor Coronary artery disease, cardiac catheterization done on April 13, 2015 revealed total occlusion of large dominant right coronary artery with collateral filling the distal right from the left side. Total occlusion of the mid proper circumflex artery, small artery receiving collateral from left anterior descending. 40-50 percent mid LAD stenosis. Nonobstructive disease. EF 30 percent, he was referred to had 4 stents overlapping in the right coronary artery done in April 2015, returned in October 2015 and had intervention to the posterior lateral branch, had a cardiac catheterization done at in June 2017 reported as patent stent in the right coronary artery and right posterior descending artery. Chronically occluded obtuse marginal branch that did not change compared to the previous study. Conservative management was recommended Congestive heart failure, chronic compensated LV dysfunction; had an echocardiogram done at and reported to have ejection fraction 35 percent, continue on current medications and monitor Status post ICD implanted by Dr. Sanjay Raphael, [employer] (h/o sudden cardiac and ventricular tachycardia) managed and followed at Carotid artery stenosis status post left CEA in 2011. Carotid u/s at Dr Rosenberg's in Dec 2017 showed 1-39% bilat ICA stenoses COPD, still smoking one cigar a day Hypertension, monitor blood pressure Hyperlipidemia, monitor Lipids Diabetes mellitus-managed by primary care physician Clinical Quality Measures DVT/VTE Risk/Contraindication: Risk Factor Score Per Nursin RFS Level Per Nursing on Admit: 4+=Very High TAYLOR ROSENBERG MD Apr 08, 2018 08:26
[2018-04-08] MEDS: APIXABAN 5 MG (ELIQUIS) TABLET PO SCH (08:33)
[2018-04-08] MEDS: DIGOXIN 0.125 MG (LANOXIN) TAB PO SCH (08:33)
[2018-04-08] MEDS: OMEGA 3 (FISH OIL) 1000 MG CAP PO SCH (08:34)
[2018-04-08] MEDS: VITAMIN D3 1,000 UNITS (CHOLECALCIFEROL) TABLET PO SCH (08:34)
[2018-04-08] MEDS: AMIODARONE 200 MG (CORDARONE) TAB PO SCH (08:34)
[2018-04-08] MEDS: FUROSEMIDE 40 MG (LASIX) TAB PO SCH (08:34)
[2018-04-08] MEDS: ENALAPRIL 2.5 MG (VASOTEC) TAB PO SCH (08:35)
[2018-04-08] MEDS: METHIMAZOLE TABLET 5 MG TABLET PO SCH (08:35)
[2018-04-08] MEDS ORDERED: AMIO200T4 PO (08:51)
[2018-04-08] MEDS ORDERED: APIX5TAB PO (08:51)
--- NOTE | 2018-04-08 08:54 | D/C HH Face to Face Order ---
D/C Face to Face Orders Instructions for Patient Via [facility], Patient Instructions/FollowUp: Dr Hernandez in [address] Rosenberg in 2 weeks Physician to follow Patient: Dr Celio Hernandez Discharge Diet for Home: No Restrictions Patient Problems: Stroke with right upper extremity weakness AF DM COPD Expressive aphasia Patient Data-Allergies,Ht & Wt Patient Allergies: Coded Allergies: No Known Drug Allergies (Unverified , 03/27/11) Height (Feet): 5 Height (Inches): 7.00 Weight (Pounds): 190 Weight (Ounces): 1.6 Home Health Need/Face to Face Date of Face to Face: Apr 08, 2018 Clinical Findings: Generalized weakness and fatigue, Instability, Unsteady gait I have seen Pt [id number]: Yes Discharged To: Home Diagnosis/Conditions: Stroke with right upper extremity weakness AF DM COPD Patient is Homebound due to: CognItive deficits, Shelia fall risk due to instabilty Homebound Status Due to the above stated illness, injury or surgical procedure (medical condition or diagnosis) and associated clinical findings, the patient is homebound because of his/her inability to leave home except with aid of a supportive device and/or person AND leaving the home requires a considerable and taxing effort or is medically contraindicated. Pt req the following assistanc: Walker Home Health Infusion Therapy Line Type: Saline Lock Site Location: Wrist Certify Stmt I certify that this patient is under my care and that I, a nurse practitioner or a physician; a assistant finance manager working with me, had a face to face encounter that - meets the physician face to face encounter requirements with this patient as dated. GRISELDA SANTOS DO Apr 08, 2018 08:54
--- NOTE | 2018-04-08 08:55 | Discharge Summary ---
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 aphasia with improved right upper and lower extremity function now but expressive aphasia no significant changes yet and DELMY revealed no thrombosis CAD s/p stents in the past Congestive heart failure chronic systolic dysfunction ejection fraction 35 percent Status post ICD implanted by Dr Raphael at [facility] Paroxysmal atrial fibrillation status post cardioversion not on anticoagulation Carotid artery stenosis status post left CEA COPD Cigar smoker Hypertension Hyperlipidemia Diabetes mellitus Situational depression Constipation resolved Wheezing on exam now resolved after Nebs Plan: Continue therapies Bowel and bladder maintenance of routine Appreciate cardiology management for complex cardiac history Improving strength on the right side so improving the ability to assist in ADLs May need behavioral health to evaluate depression since it may interfere with his therapies and progression BM regimen Nebs with IS to continue Reason Hospital Visit CC: ischemic stroke with severe right sided hemiparesis HPI: This is a 78-year-old white male he was transferred from fourth floor after sustaining a stroke deemed not a TPA candidate due to brought to the ER 12 hours after last seen well by the family. Pt was seen by therapies and speech after dysphagia noted and was immediately changed to a pureed diet of which he is tolerating well. Patient has had extensive cardiac problems including paroxysmal atrial fibrillation along with ICD, CHF EF 35% and CAD w/ stents along with DM and HTN. Patient is tolerating PT well with return of some function of his right side. Pt remains with aphasia so he is unable to contribute much information during the interview. Discharge Summary Discharge Physical Examination Allergies: Coded Allergies: No Known Drug Allergies (Unverified , 03/27/11) Vitals & I&Os Vital Signs Date Time Temp Pulse Resp B/P (MAP) Pulse Ox O2 Delivery O2 Flow Rate FiO2 04/08/18 10:00 63 18 110/68 92 Room Air 04/08/18 05:54 98.3 Hospital Course Was the Problem List Reviewed?: Yes Hospital course: Patient had a very lengthy but beneficial inpatient rehab stay for 11 days for severe stroke with right sided dominant side weakness. He also had expressive aphasia with dysphasia. He was admitted [facility] and began therapy quickly which resulted in return to ambulation soon thereafter with help from physical therapy and a walker. Right upper extremity weakness persisted and through aggressive therapy resulted in 3/5 strength instead of completely flaccid as it was at the beginning of his hospital stay in inpatient rehab. Expressive aphasia required speech therapy with intense exercises that resulted in improved deficit at time of discharge. Cardiology follow the patient with DELMY performed with no thrombus found as the source of the stroke. He was maintain on aggressive cardiac medication along with anticoagulation and aspirin therapy. Urinary retention resolved after Retana catheter was discontinued and bowel function resumed to normal status. Overall he had a dramatic improvement through inpatient rehab facility protocol and was able to go back to assisted living on a regular diet with speech therapy physical therapy occupational therapy to continue his recovery from the severe stroke. Labs (last 24 hrs) Laboratory Tests 03/28/18 12:29: Glucometer 104 03/28/18 16:50: Glucometer 128H 03/28/18 21:02: Glucometer 99 03/29/18 05:02: Glucometer 114H 03/29/18 12:36: Glucometer 129H 03/29/18 20:38: Glucometer 142H 03/30/18 06:02: Glucometer 116H 03/30/18 11:54: Glucometer 124H 03/30/18 16:57: Glucometer 161H 03/30/18 20:56: Glucometer 149H 03/31/18 06:03: Glucometer 127H 03/31/18 06:45: White Blood Count 10.5, Red Blood Count 4.48, Hemoglobin 13.2L, Hematocrit 39L, Mean Corpuscular Volume 87, Mean Corpuscular Hemoglobin 29, Mean Corpuscular Hemoglobin Concent 34, Red Cell Distribution Width 15.8H, Platelet Count 215, Mean Platelet Volume 12.2H, Neutrophils (%) (Auto) 64, Lymphocytes (%) (Auto) 22 , Monocytes (%) (Auto) 11, Eosinophils (%) (Auto) 3, Basophils (%) (Auto) 0, Neutrophils # (Auto) 6.7, Lymphocytes # (Auto) 2.3, Monocytes # (Auto) 1.1H, Eosinophils # (Auto) 0.4H, Basophils # (Auto) 0.0, Sodium Level 140, Potassium Level 3.7, Chloride Level 106, Carbon Dioxide Level 23, Anion Gap 11, Blood Urea Nitrogen 18, Creatinine 0.88, Estimat Glomerular Filtration Rate > 60, BUN/ Creatinine Ratio 20, Glucose Level 101, Calcium Level 9.4, Corrected Calcium 9.6 , Total Bilirubin 0.5, Aspartate Amino Transf (AST/SGOT) 22, Alanine Aminotransferase (ALT/SGPT) 22, Alkaline Phosphatase 44, Total Protein 6.3L, Albumin 3.7 03/31/18 11:10: Glucometer 202H 03/31/18 16:46: Glucometer 124H 03/31/18 20:56: Glucometer 157H 04/01/18 05:54: Glucometer 90 04/01/18 11:51: Glucometer 108 04/01/18 16:56: Glucometer 150H 04/01/18 20:27: Glucometer 142H 04/02/18 05:16: Glucometer 86 04/02/18 12:02: Glucometer 104 04/02/18 15:22: Glucometer 97 04/02/18 20:06: Glucometer 165H 04/03/18 05:41: Glucometer 114H 04/03/18 10:49: Glucometer 126H 04/03/18 16:20: Glucometer 138H 04/03/18 20:38: Glucometer 137H 04/04/18 05:13: Glucometer 97 04/04/18 11:18: Glucometer 114H 04/04/18 16:01: Glucometer 136H 04/04/18 20:44: Glucometer 120H 04/05/18 06:22: Glucometer 97 04/05/18 11:37: Glucometer 163H 04/05/18 16:42: Glucometer 130H 04/05/18 20:42: Glucometer 115H 04/06/18 06:11: Glucometer 96 04/06/18 11:01: Glucometer 141H 04/07/18 04:24: Glucometer 91 04/08/18 05:26: Glucometer 85 Pending Labs Laboratory Tests 03/28/18 12:29: Glucometer 104 03/28/18 16:50: Glucometer 128 03/28/18 21:02: Glucometer 99 03/29/18 05:02: Glucometer 114 03/29/18 12:36: Glucometer 129 03/29/18 20:38: Glucometer 142 03/30/18 06:02: Glucometer 116 03/30/18 11:54: Glucometer 124 03/30/18 16:57: Glucometer 161 03/30/18 20:56: Glucometer 149 03/31/18 06:03: Glucometer 127 03/31/18 06:45: White Blood Count 10.5, Red Blood Count 4.48, Hemoglobin 13.2, Hematocrit 39, Mean Corpuscular Volume 87, Mean Corpuscular Hemoglobin 29, Mean Corpuscular Hemoglobin Concent 34, Red Cell Distribution Width 15.8, Platelet Count 215, Mean Platelet Volume 12.2, Neutrophils (%) (Auto) 64, Lymphocytes (%) (Auto) 22 , Monocytes (%) (Auto) 11, Eosinophils (%) (Auto) 3, Basophils (%) (Auto) 0, Neutrophils # (Auto) 6.7, Lymphocytes # (Auto) 2.3, Monocytes # (Auto) 1.1, Eosinophils # (Auto) 0.4, Basophils # (Auto) 0.0, Sodium Level 140, Potassium Level 3.7, Chloride Level 106, Carbon Dioxide Level 23, Anion Gap 11, Blood Urea Nitrogen 18, Creatinine 0.88, Estimat Glomerular Filtration Rate > 60, BUN/ Creatinine Ratio 20, Glucose Level 101, Calcium Level 9.4, Corrected Calcium 9.6 , Total Bilirubin 0.5, Aspartate Amino Transf (AST/SGOT) 22, Alanine Aminotransferase (ALT/SGPT) 22, Alkaline Phosphatase 44, Total Protein 6.3, Albumin 3.7 03/31/18 11:10: Glucometer 202 03/31/18 16:46: Glucometer 124 03/31/18 20:56: Glucometer 157 04/01/18 05:54: Glucometer 90 04/01/18 11:51: Glucometer 108 04/01/18 16:56: Glucometer 150 04/01/18 20:27: Glucometer 142 04/02/18 05:16: Glucometer 86 04/02/18 12:02: Glucometer 104 04/02/18 15:22: Glucometer 97 04/02/18 20:06: Glucometer 165 04/03/18 05:41: Glucometer 114 04/03/18 10:49: Glucometer 126 04/03/18 16:20: Glucometer 138 04/03/18 20:38: Glucometer 137 04/04/18 05:13: Glucometer 97 04/04/18 11:18: Glucometer 114 04/04/18 16:01: Glucometer 136 04/04/18 20:44: Glucometer 120 04/05/18 06:22: Glucometer 97 04/05/18 11:37: Glucometer 163 04/05/18 16:42: Glucometer 130 04/05/18 20:42: Glucometer 115 04/06/18 06:11: Glucometer 96 04/06/18 11:01: Glucometer 141 04/07/18 04:24: Glucometer 91 04/08/18 05:26: Glucometer 85 Discharge Home Medications: Active Scripts Active Amiodarone HCl 200 Mg Tablet 100 Mg PO DAILY Eliquis (Apixaban) 5 Mg Tablet 5 Mg PO BID Reported Lipitor (Atorvastatin Calcium) 80 Mg Tablet 80 Mg PO DAILY Omeprazole 20 Mg Capsule.dr 20 Mg PO DAILY Fish Oil 1,000 mg Capsule (Wyatt 3 Polyunsat Fatty Acids) 1,000 Mg Cap 1,000 Mg PO TID Enalapril Maleate 2.5 Mg Tablet 2.5 Mg PO DAILY Carvedilol 6.25 Mg Tablet 6.25 Mg PO BID Furosemide 40 Mg Tablet 40 Mg PO DAILY Digoxin 125 Mcg Tablet 125 Mcg PO DAILY Glimepiride 4 Mg Tablet 4 Mg PO DAILY Vitamin D (Cholecalciferol (Vitamin D3)) 2,000 Unit Capsule 2,000 Unit PO DAILY Aspirin EC (Aspirin) 81 Mg Tablet.dr 81 Mg PO DAILY Methimazole 5 Mg Tablet 5 Mg PO DAILY Instructions to patient/family Please see electronic discharge instructions given to patient. Diagnosis/Problems Diagnosis/Problems (1) Cerebrovascular accident (CVA) with involvement of right side of body Status: Acute (2) ICD (implantable cardioverter-defibrillator) in place Status: Chronic (3) Situational depression Status: Acute (4) Pacemaker Status: Chronic (5) Aphasia Status: Acute (6) Hypertension Status: Chronic Qualifiers: Qualified Codes: I10 - Essential (primary) hypertension (7) Renal insufficiency Status: Chronic (8) Hyperlipidemia Status: Chronic Qualifiers: Qualified Codes: E78.2 - Mixed hyperlipidemia (9) CHF (congestive heart failure) Status: Chronic Qualifiers: Qualified Codes: I50.22 - Chronic systolic (congestive) heart failure (10) CAD (coronary artery disease) Status: Chronic Qualifiers: Qualified Codes: I25.10 - Atherosclerotic heart disease of [place] coronary artery without angina pectoris (11) Expressive aphasia Status: Acute (12) Diabetes mellitus Status: Chronic Qualifiers: Qualified Codes: E11.59 - Type 2 diabetes mellitus with other circulatory complications (13) COPD (chronic obstructive pulmonary disease) Status: Chronic Qualifiers: Qualified Codes: J44.9 - Chronic obstructive pulmonary disease, unspecified (14) Smoker Status: Chronic (15) Stented coronary artery Status: Chronic (16) Constipation Status: Resolved Qualifiers: Qualified Codes: K59.01 - Slow transit constipation Resolution Date/Time: 04/03/18 @ 11:32 (17) Wheezing Status: Resolved Resolution Date/Time: 04/07/18 @ 12:51 Clinical Quality Measures DVT/VTE Risk/Contraindication: Risk Factor Score Per Nursin RFS Level Per Nursing on Admit: 4+=Very High GRISELDA SANTOS DO Apr 08, 2018 08:55
--- NOTE | 2018-04-08 08:57 | D/C HH Face to Face Order ---
D/C Face to Face Orders Instructions for Patient Via [facility], Patient Instructions/FollowUp: Dr Hernandez in [address] Rosenberg in 2 weeks Physician to follow Patient: Dr Hernandez Discharge Diet for Home: No Restrictions Patient Problems: Stroke with right upper extremity weakness AF DM COPD Expressive aphasia Patient Data-Allergies,Ht & Wt Patient Allergies: Coded Allergies: No Known Drug Allergies (Unverified , 03/27/11) Height (Feet): 5 Height (Inches): 7.00 Weight (Pounds): 190 Weight (Ounces): 1.6 Home Health Need/Face to Face Date of Face to Face: Apr 08, 2018 Clinical Findings: Generalized weakness and fatigue, Instability, Unsteady gait I have seen Pt [id number]: Yes Discharged To: Home Diagnosis/Conditions: Stroke with right upper extremity weakness AF DM COPD Expressive aphasia Patient is Homebound due to: CognItive deficits, Shelia fall risk due to instabilty Homebound Status Due to the above stated illness, injury or surgical procedure (medical condition or diagnosis) and associated clinical findings, the patient is homebound because of his/her inability to leave home except with aid of a supportive device and/or person AND leaving the home requires a considerable and taxing effort or is medically contraindicated. Pt req the following assistanc: Walker Home Health Nursing Orders Home Health Services Order: Nursing Services, Manager Of Enterprise-Evaluate & Treat, Physical Therapy-Evaluate & Treat, Speech Language-Evaluate & Treat Home Health Infusion Therapy Line Type: Saline Lock Site Location: Wrist Certify Stmt I certify that this patient is under my care and that I, a nurse practitioner or a physician; a workers compensation claims assistant working with me, had a face to face encounter that - meets the physician face to face encounter requirements with this patient as dated. GRISELDA SANTOS DO Apr 08, 2018 08:57
[2018-04-08] MEDS ORDERED: CARVEDILOL 3.125 MG (COREG) TABLET PO SCH (09:00)
--- NOTE | 2018-04-08 09:11 | Therapy Team Discharge Summary ---
Therapy Discharge Summary Discharge Recommendations Date of Discharge Therapy D/C Recommendations: Assisted Living, Occupational Therapy Home Care, Occupational Therapy Outpatient Occupational Therapy Decreased Activ Tolerance, Decreased UE Strength, Dependent Transfers, Impaired Coordination, Impaired Funct Balance, Impaired I ADL's, Impaired Self-Care Skills Speech-Language Pathology Patient was admitted to the ARU for rehab due to CVA. Patient was assessed by ST on date of admit with deficits in oral intake and expressive aphasia. Patient has made significant progress with oral intake to regular level and minimal facial weakness. Patient's expression has improved, however he does have moderate difficulty in word finding. Patient does utilize a picture board occasionally as an assistant track coach for making needs/wants known. Patient is being discharged from skilled ST today due to returning to his assisted living apartment. PT Nursing Home Goals Nursing Home Goals PT Nursing Home Goals Time Frame: Apr 19, 2018 Transfers (B,C,W/C) (FIM): 6 Roll Left to Right (QC): 6 Sit to Lying (QC): 6 Lying-Sitting on Side/Bed(QC): 6 Sit to Stand (QC): 6 Chair/Dzu-cg-Ztqhw Xfer(QC): 6 Car Transfer (QC): 5 Does the Patient Walk: Yes Gait (FIM): 6 Gait distance (FIM): 3=150 ft Distance: 250' Walk 10 feet (QC): 6 Walk 10ft-Uneven Surface(QC): 6 Walk 50ft with 2 Turns (QC): 6 Walk 150 ft (QC): 6 Gait Level of Assist: 6 Gait Assistive Device: None Stairs (FIM): 2 # of Steps: 4 1 Step (curb) (QC): 4 4 Steps (QC): 4 12 Steps (QC): 9 Stairs Level Of Assist: 4 Picking up an Object (QC): 5 OT Nursing Home Goals Nursing Home Goals Time Frame: Apr 18, 2018 Eating (FIM): 6 (met) Eating (QC): 6 (et) Oral Hygiene (QC): 6 (met) Grooming(FIM): 6 (met) Bathing(FIM): 5 Shower/Bathe Self (QC): 4 (met) Upper Body Dressing(FIM): 6 (met) Upper Body Dressing (QC): 6 (met) Lower Body Dressing(FIM): 5 (met) Lower Body Dressing (QC): 5 (met) On/Off Footwear (QC): 5 (met) Toileting(FIM): 6 (met) Toileting Hygiene (QC): 6 (met) Toilet/Commode Transfer(FIM): 6 (met) Toilet/Commode Transfer (QC): 6 (met) Shower Transfer(FIM): 5 (met) Additional Goals: 1-Demonstrate ADL Tasks, 2-Verbalize Understanding, 3- ImproveStrength/Kristine 1=Demonstrate adherence to instructed precautions during ADL tasks. 2=Patient will verbalize/demonstrate understanding of assistive devices/ modifications for ADL. 3=Patient will improve strength/tolerance for activity to enable patient to perform ADL's. Speech Nursing Home Goals Plant Culture Manager Goals Patient will maintain adequate nutrition/hydration via safe, effective swallow function. Patient will demonstrate increased auditory comprehension and verbal expression to be able to carry on a simple conversation with min assist. Met at 75% DEV NEFF Apr 08, 2018 09:11
--- NOTE | 2018-04-08 09:41 | NUR ---
LEFT EYE RED AND SL. SWOLLEN. DR. EISENBERG'S OFFICE NOTIFIED PER PT. REQUEST. DR. EISENBERG'S OFFICE SAID THEY WOULD CALL KAN WHEN THEY CAN MAKE AN APPOINTMENT FOR HARI.
--- NOTE | 2018-04-08 09:51 | NUR ---
Patient discharging today and returning to [facility]. Recommending [facility] PT, OT and PHYSICAL TRAINER. Choice form signed. Patient is anxious to return to [facility], no barriers to discharge noted.
[2018-04-08 10:00] VITALS: BP 110/68
--- NOTE | 2018-04-08 10:00 | NUR ---
GRAND KAN demonstrates understanding of discharge instructions and accurately returns instructions upon questioning. Copy of Post-Discharge Instructions given to GRAND KAN. HARI MAIN is able to manage continuing needs after discharge WITH ASSISTANCE OF DIVINA KAN. Patients belongings returned to PT. Patient discharged from [facility] on 04/08/18 at 1000. HARI MAIN left floor via W/C, accompanied by STAFF AND DIVINA KAN EMPLOYEE PER AUTO.
--- NOTE | 2018-04-09 11:35 | Therapy Team Discharge Summary ---
Therapy Discharge Summary Discharge Recommendations Date of Discharge Apr 08, 2018 at 10:00 Therapy D/C Recommendations: Assisted Living, Occupational Therapy Home Care, Occupational Therapy Outpatient Physical Therapy Patient came to rehab with CVA. Upon evaluation patient performed bed mobility and transfers with CGA/Bossman, car transfers CGA/Bossman, ambulated 200' with DIE CASTER and mod assist, and went up and down 1 step with DIE CASTER and mod assist. Patient has been performing bed mobility and transfer training, balance and endurance training, functional strengthening, stair training, gait training, and education. 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 Now, patient performs bed mobility and transfers with mod I, car transfer with mod I, ambulates over 200' with mod I without an AD (holds onto handrails and furniture on occasion), and can go up and down 4 steps using 1 handrail with SBA. Patient has been discharged from this facility and will be discharged from PT at this time. Occupational Therapy Decreased Activ Tolerance, Decreased UE Strength, Dependent Transfers, Impaired Coordination, Impaired Funct Balance, Impaired I ADL's, Impaired Self-Care Skills PT Presser And Blocker Knitted Goods Goals Presser And Blocker Knitted Goods Goals PT Mcc Goals Time Frame: Apr 19, 2018 Transfers (B,C,W/C) (FIM): 6 Roll Left to Right (QC): 6 Sit to Lying (QC): 6 Lying-Sitting on Side/Bed(QC): 6 Sit to Stand (QC): 6 Chair/Oum-uy-Ohykn Xfer(QC): 6 Car Transfer (QC): 5 Does the Patient Walk: Yes Gait (FIM): 6 Gait distance (FIM): 3=150 ft Distance: 250' Walk 10 feet (QC): 6 Walk 10ft-Uneven Surface(QC): 6 Walk 50ft with 2 Turns (QC): 6 Walk 150 ft (QC): 6 Gait Level of Assist: 6 Gait Assistive Device: None Stairs (FIM): 2 # of Steps: 4 1 Step (curb) (QC): 4 4 Steps (QC): 4 12 Steps (QC): 9 Stairs Level Of Assist: 4 Picking up an Object (QC): 5 OT Mcc Goals Mcc Goals Time Frame: Apr 18, 2018 Eating (FIM): 6 (met) Eating (QC): 6 (et) Oral Hygiene (QC): 6 (met) Grooming(FIM): 6 (met) Bathing(FIM): 5 Shower/Bathe Self (QC): 4 (met) Upper Body Dressing(FIM): 6 (met) Upper Body Dressing (QC): 6 (met) Lower Body Dressing(FIM): 5 (met) Lower Body Dressing (QC): 5 (met) On/Off Footwear (QC): 5 (met) Toileting(FIM): 6 (met) Toileting Hygiene (QC): 6 (met) Toilet/Commode Transfer(FIM): 6 (met) Toilet/Commode Transfer (QC): 6 (met) Shower Transfer(FIM): 5 (met) Additional Goals: 1-Demonstrate ADL Tasks, 2-Verbalize Understanding, 3- ImproveStrength/Kristine 1=Demonstrate adherence to instructed precautions during ADL tasks. 2=Patient will verbalize/demonstrate understanding of assistive devices/ modifications for ADL. 3=Patient will improve strength/tolerance for activity to enable patient to perform ADL's. Speech Mcc Goals Mcc Goals Patient will maintain adequate nutrition/hydration via safe, effective swallow function. Patient will demonstrate increased auditory comprehension and verbal expression to be able to carry on a simple conversation with min assist. Met at 75% MALIA LITTLEJOHN PT Apr 09, 2018 11:35
--- NOTE | 2018-04-09 15:45 | Therapy Team Discharge Summary ---
Therapy Discharge Summary Discharge Recommendations Date of Discharge Apr 08, 2018 at 10:00 Therapy D/C Recommendations: Assisted Living, Occupational Therapy Home Care, Occupational Therapy Outpatient Occupational Therapy Pt admitted to ARU following CVA. On admission pt required max assist with dressing, mod assist with bathing, and min assist with transfers. Skilled OT intervention focused on ADL training, transfers, strengthening, and safety. Pt made good progress and by discharge is completing LE dressing with min assist, and all other ADLs and transfers with modified independence to independent. Pt did not meet LTG for LE dressing, but met all other goals. Pt discharged back to [facility]. D/C ARU OT. Decreased Activ Tolerance, Decreased UE Strength, Dependent Transfers, Impaired Coordination, Impaired Funct Balance, Impaired I ADL's, Impaired Self-Care Skills PT Dust Mill Operator Goals Dust Mill Operator Goals PT Dust Mill Operator Goals Time Frame: Apr 19, 2018 Transfers (B,C,W/C) (FIM): 6 Roll Left to Right (QC): 6 Sit to Lying (QC): 6 Lying-Sitting on Side/Bed(QC): 6 Sit to Stand (QC): 6 Chair/Nwp-pc-Iokwe Xfer(QC): 6 Car Transfer (QC): 5 Does the Patient Walk: Yes Gait (FIM): 6 Gait distance (FIM): 3=150 ft Distance: 250' Walk 10 feet (QC): 6 Walk 10ft-Uneven Surface(QC): 6 Walk 50ft with 2 Turns (QC): 6 Walk 150 ft (QC): 6 Gait Level of Assist: 6 Gait Assistive Device: None Stairs (FIM): 2 # of Steps: 4 1 Step (curb) (QC): 4 4 Steps (QC): 4 12 Steps (QC): 9 Stairs Level Of Assist: 4 Picking up an Object (QC): 5 OT Dust Mill Operator Goals Dust Mill Operator Goals Time Frame: Apr 18, 2018 Eating (FIM): 6 (met) Eating (QC): 6 (et) Oral Hygiene (QC): 6 (met) Grooming(FIM): 6 (met) Bathing(FIM): 5 Shower/Bathe Self (QC): 4 (met) Upper Body Dressing(FIM): 6 (met) Upper Body Dressing (QC): 6 (met) Lower Body Dressing(FIM): 5 (met) Lower Body Dressing (QC): 5 (met) On/Off Footwear (QC): 5 (met) Toileting(FIM): 6 (met) Toileting Hygiene (QC): 6 (met) Toilet/Commode Transfer(FIM): 6 (met) Toilet/Commode Transfer (QC): 6 (met) Shower Transfer(FIM): 5 (met) Additional Goals: 1-Demonstrate ADL Tasks, 2-Verbalize Understanding, 3- ImproveStrength/Kristine 1=Demonstrate adherence to instructed precautions during ADL tasks. 2=Patient will verbalize/demonstrate understanding of assistive devices/ modifications for ADL. 3=Patient will improve strength/tolerance for activity to enable patient to perform ADL's. Speech Dust Mill Operator Goals [facility] Goals Patient will maintain adequate nutrition/hydration via safe, effective swallow function. Patient will demonstrate increased auditory comprehension and verbal expression to be able to carry on a simple conversation with min assist. Met at 75% BREE SHABAZZ OT Apr 09, 2018 15:45
== END 2018-04-08 10:00 | disposition home health service (06) | DRG 57 ==
PROVIDERS: ADMIT Internal Medicine; ATTEND Internal Medicine
DX: I69.351 Hemiplegia and hemiparesis following cerebral infarction affecting right dominant side (principal); I69.391 Dysphagia following cerebral infarction; R13.12 Dysphagia, oropharyngeal phase; I69.320 Aphasia following cerebral infarction; I48.0 Paroxysmal atrial fibrillation; I42.9 Cardiomyopathy, unspecified; I13.0 Hypertensive heart and chronic kidney disease with heart failure and stage 1 through stage 4 chronic kidney disease, or unspecified chronic kidney disease; I50.22 Chronic systolic (congestive) heart failure; N18.9 Chronic kidney disease, unspecified; I25.10 Atherosclerotic heart disease of native coronary artery without angina pectoris; I25.82 Chronic total occlusion of coronary artery; E11.59 Type 2 diabetes mellitus with other circulatory complications; F17.210 Nicotine dependence, cigarettes, uncomplicated; J44.9 Chronic obstructive pulmonary disease, unspecified; E78.2 Mixed hyperlipidemia; M19.90 Unspecified osteoarthritis, unspecified site; F43.21 Adjustment disorder with depressed mood; K59.01 Slow transit constipation; R06.2 Wheezing; Z79.84 Long term (current) use of oral hypoglycemic drugs; Z95.810 Presence of automatic (implantable) cardiac defibrillator; Z95.5 Presence of coronary angioplasty implant and graft
CPT/HCPCS: 36415; 80053; 82962; 85025; 94640; 94664; 94760

== ENCOUNTER → 2018-04-02 | Day surgery (SDC) | payer MEDICARE, MEDICAID ==
[2018-04-02] VITALS (8 sets, daily range): BP systolic 97–124; BP diastolic 52–68
[~2018-04-02] MED LIST changes: +LIDOCAINE 2% VISCOUS 15 ML UDC ONE; +LIDOCAINE 2% VISCOUS 15 ML UDC PO ONE; +MIDAZOLAM 5 MG/5 ML (VERSED) VIAL ONE; +NS IV 1000 ML 1,000 ML IV ONE; +NS IV 1000 ML 1,000 ML ONE; +fentaNYL INJECTION 100 MCG/2 ML AMP INJ ONE; +fentaNYL INJECTION 100 MCG/2 ML AMP IV ONE; +fentaNYL INJECTION 100 MCG/2 ML AMP ONE
--- NOTE | 2018-04-02 08:11 | Cardiac Procedure Note-CS/ASA ---
Pre-Procedure Note Pre-Op Procedure Note H&P Reviewed The H&P was reviewed, patient examined and no changes noted. Date H&P Reviewed: Apr 02, 2018 Time H&P Reviewed: 08:11 Conscious Sedation Pre-Proced Time 08:11 ASA Score 3 For ASA 3 and 4: Consider anesthesia and medical clearance. Also, for patients with a history of failed moderate sedation consider anesthesia. Airway Lungs Heart ASA score ASA 1: a normal healthy patient ASA 2: a patient with a mild systemic disease (mid diabetes, controlled hypertension, obesity x ASA 3: a patient with a severe systemic disease that limits activity (angina , COPD, prior Myocardial infarction) ASA 4: a patient with an incapacitating disease that is a constant threat to life (CHF, renal failure) ASA 5: a moribund patient not expected to survive 24 hrs. (ruptured aneurysm) ASA 6: a declared brain patient whose organs are being harvested. For emergent operations, add the letter E after the classification Mallampati Classification Grade 3 Sedation Plan Analgesia, Amnesia, Plan communicated to team members, Discussed options with patient/fam, Discussed risks with patient/fam The patient is an appropriate candidate to undergo the planned procedure, sedation, and anesthesia. The patient immediately re-assessed prior to indication. TAYLOR BROWN MD Apr 02, 2018 08:11
[2018-04-02] MEDS: MIDAZOLAM 5 MG/5 ML (VERSED) VIAL IV ONE (08:53)
--- NOTE | 2018-04-02 09:08 | Clinic Account Progress/Dx ---
Clinic Account Progress/Dx DIAGNOSIS: Date Seen by Provider: Apr 02, 2018 Time Seen by Provider: 09:08 CVA Congestive heart failure, chronic compensated left ventricular systolic dysfunction, nonischemic cardiomyopathy, ejection fraction 40 percent Ventricular tachycardia Hypertension TAYLOR BROWN MD Apr 02, 2018 09:08
--- OUTSIDE RECORDS SUMMARY | 2018-04-02 10:10 | XMS REPORT | Clinical Summary ---
Author Author [facility] Organization [facility] Address Unknown Phone Unavailable Care Team Providers Care Diamond Sawer Name Role Phone BlakeMilena Unavailable Unavailable Celio Hernandez MD PCP Leyda Grace RN Unavailable Unavailable Sonja Shah RN Unavailable Unavailable Source Comments Some departments are not documenting in the electronic medical record. If you do not see the information that you expected, contact Release of Information in the Health Information Management department at [phone] for further assistance in locating additional records.[facility] Allergies No Known Allergies Medications End Date Status Medication Sig Dispensed Refills Start Date Active [place]-3 Fatty Take 1 Cap by 0 Acids-Vitamin [...] 6 Coronary artery disease every 5 involving [place] coronary minutes as artery of [place] heart, needed for angina presence Chest Pain. unspecified, Chronic systolic heart failure (HCC), Ischemic cardiomyopathy, Chronic obstructive pulmonary disease, unspecified COPD type (HCC), Hyperlipidemia, unspecified hyperlipidemia type, Pulmonary hypertension (HCC) Active aspirin EC 81 mg Take 1 Tab by 90 Tab 3 tabletIndications: mouth daily. 6 Coronary artery disease Take with involving [place] coronary food. artery of [place] heart, angina presence unspecified, Ischemic cardiomyopathy, Chronic [...] (HCC), Ischemic cardiomyopathy, Coronary artery disease involving [place] coronary artery of [place] heart, angina presence unspecified, History of atrial fibrillation, NSVT (nonsustained ventricular tachycardia) (HCC), VF (ventricular fibrillation) (HCC), Essential hypertension Active carvedilol (COREG) 25 mg Take one 180 tablet 1 tablet tablet by 8 mouth twice daily. Active spironolactone Take one-half 45 tablet 3 (ALDACTONE) 25 mg tablet by 8 tabletIndications: mouth daily. Coronary artery disease Take with involving [place] coronary food. artery of [place] heart, angina presence unspecified, Chronic systolic heart [...] Ischemic cardiomyopathy 05/06/2015 CAD (coronary artery disease), [place] coronary artery Overview: 04/13/15 - cardiac cath: [...] Encounters Care Team Description Date Type Specialty Gemma Katz RN Device Check 03/28/2018 Telephone Cardiology Sanjay Raphael MD Arrived 03/26/2018 Hospital Cardiology Encounter Shantel Troy RN Labs Only (BMP) 01/08/2018 Documentation Cardiology from Last 3 Months Family History Medical [...] Date/Time Associated Diagnosis DEVICE EVALUATION - Routine 03/28/2018 Chronic systolic heart REMOTE ICD 1:38 PM PRODUCTION PLANNER SCHEDULER failure (HCC) Procedure Note - Gemma Katz, RN - 03/28/2018 1:45 PM PRODUCTION PLANNER SCHEDULER Current monitoring period 03/26/18-06/24 [03/28/2018 1:40:32 PM - GEMMA KATZ] Please see scanned data sheets for further review. Scheduled [facility] transmissi on received for dual chamber ICD. Device function appears appropriat e. Presenting EGM shows Ap-Vs 60bpm with PACs. Battery longevity 8.8y. Events noted since 12/25/17: Atrial: none. Ventricul ar: 1 NSVT on 03/06/18. EGM shows 6 bt NSVT. RV Pacing %: <0.1% Optivol is stable for this patient. Next follow up appt pending May [address] Amaral. Next remote scheduled for 3 mo. Results routed to Dr. Raphael for signature and review. BASIC METABOLIC PANEL Routine 01/08/2018 Drug therapy [...] 91 [facility] [place] eGFR [facility] Anion Gap 12 [facility] Specimen Blood - Blood Performing Organization Address City/State/Zipcode Phone Number [facility] [address] [facility] , [place] [address] [phone] * DEVICE EVALUATION - REMOTE ICD (12/31/2017 11:06 AM CDT) Generator Model # EVERA MRI XT DR CHENG OTHER OUTSIDE LAB [id number] Generator Serial # [id number] OTHER OUTSIDE LAB Generator Implnat Date 03/20/2016 OTHER OUTSIDE LAB MONSE/EOL Indicator Per javascript programmer OTHER OUTSIDE LAB Generator Inspector [employer] OTHER OUTSIDE LAB Generator Investigational No OTHER OUTSIDE LAB Wireless Generator Yes OTHER OUTSIDE LAB Device Type DDD-ICD OTHER OUTSIDE LAB Device [place] [employer] OTHER OUTSIDE LAB Transmitter Compatible RV Lead Model # SPRINT QUATTRO SECURE S MRI OTHER OUTSIDE LAB SURESCAN 6935M-[id number] RV Lead Serial # [id number] OTHER OUTSIDE LAB RV Lead Implant Date 03/20/2016 OTHER OUTSIDE LAB RV Lead Diaph. 10 OTHER OUTSIDE LAB Stimulation RV Lead Investigational No OTHER OUTSIDE LAB RV Lead Fixation active fixation OTHER OUTSIDE LAB RV Lead Location RV apex OTHER OUTSIDE LAB RV Lead Coil Single OTHER OUTSIDE LAB RV Lead Inspector [employer] OTHER OUTSIDE LAB Atrial Lead Model # CAPSUREFIX NOVUS MRI SURESCAN OTHER OUTSIDE LAB 5076-52CM Atrial Lead Serial # [id number] OTHER OUTSIDE LAB Atrial Lead Implant Date 03/20/2016 OTHER OUTSIDE LAB Atrial Lead Diaph. 10 OTHER OUTSIDE LAB Stimulation Atrial Lead Inspector [employer] OTHER OUTSIDE LAB Atrial Lead No [...] Due 12/26/17 OTHER OUTSIDE LAB AT/AF Daily [place] Hours 6 OTHER OUTSIDE LAB Average Vent Rate during 100 OTHER OUTSIDE LAB AT/AF #BPM Average Vent Rate During 6 OTHER OUTSIDE LAB AT/AF #Hours Remote Monitoring? Yes OTHER OUTSIDE LAB Daily [place] Threshld On OTHER OUTSIDE LAB Alert? Average [...] on file. For more information, please contact: [facility] [address] [place] [address] Date Inactivated Comments Code Status Date Activated [...]
--- OUTSIDE RECORDS SUMMARY | 2018-04-02 10:11 | XMS REPORT | Encounter Summary ---
Author Author [facility] Organization [facility] Address Unknown Phone Unavailable Care Team Providers Care Excelsior Cutter Name Role Phone BlakeMilena Unavailable Unavailable Celio Hernandez MD PCP Leyda Grace RN Unavailable Unavailable Sonja Shah RN Unavailable Unavailable Reason for Visit * Reason Comments Labs Only BMP Encounter Details Care Team Description Date Type Department Shantel Troy RN Labs Only (BMP) 01/08/2018 Documentation Cardiovascular Medicine [facility] [place] [address] Social History Date Tobacco Use Types Packs/Day [...] METABOLIC PANEL (01/08/2018) Sodium 136 [facility] Potassium 4.4 [facility] Chloride 100 [facility] CO2 28.0 [facility] Blood Urea Nitrogen 19 [facility] Creatinine 1.1 [facility] Glucose 128 (H) [facility] Calcium 9.4 [facility] eGFR Non 91 [facility] eGFR [facility] Anion Gap 12 [facility] Specimen Blood - Blood Performing Organization Address City/State/Zipcode Phone Number [facility] [place] [facility] [address] [place] [address] 10A in this encounter Visit Diagnoses Diagnosis Drug therapy changed Encounter for long-term (current) use of other medications Chronic systolic heart failure (HCC) Chronic systolic heart failure in this encounter
--- OUTSIDE RECORDS SUMMARY | 2018-04-02 10:11 | XMS REPORT | Encounter Summary ---
Author Author [facility] Organization [facility] Address Unknown Phone Unavailable Care Team Providers Care Cable Inspector Name Role Phone BlakeMilena Unavailable Unavailable Celio Hernandez MD PCP Leyda Grace RN Unavailable Unavailable Sonja Shah RN Unavailable Unavailable Encounter Details Care Team Description Date Type Department Sanjay Raphael MD [address] [facility] [address] [place] [address] Arrived 03/26/2018 [facility] Cardiovascular Medicine Encounter Remote Device Check [phone] Social History Date Tobacco Use Types Packs/Day [...] daily. Coronary artery disease Take with involving ven[place]ie coronary food. artery of venetie heart, angina presence unspecified, Ischemic cardiomyopathy, Chronic obstructive pulmonary disease, unspecified COPD type (HCC) 11/19/2017 carvedilol (COREG) 25 mg Take one 180 tablet 1 tablet tablet by mouth twice daily. Cholecalciferol (Vitamin Take 1 Cap by 0 D3) 2,000 unit cap mouth daily. enalapril (VASOTEC) 2.5 Take 2.5 mg 0 mg tablet by mouth daily. 12/27/2017 furosemide (LASIX) 40 mg Take one 90 tablet 3 tablet tablet by mouth every morning. 06/27/2017 metFORMIN (GLUCOPHAGE) Take 1 tablet 180 tablet 3 500 mg tabletIndications: by mouth Chronic systolic heart twice daily failure ([facility]), Chronic with meals. obstructive pulmonary DO NOT RESUME disease, unspecified COPD UNTIL 06/29/17 type ([facility]), Hyperlipidemia, unspecified hyperlipidemia type, Pulmonary hypertension ([facility]), Ischemic cardiomyopathy, Coronary artery disease involving ven[place]ie coronary artery of ven[place]ie heart, angina presence unspecified, History of atrial fibrillation, NSVT (nonsustained ventricular tachycardia) ([facility]), VF (ventricular fibrillation) ([facility]), Essential hypertension methimazole (TAPAZOLE) 5 Take 5 mg by 0 mg tablet mouth daily. 11/02/2015 nitroglycerin (NITROSTAT) Place 1 Tab 25 Tab 3 0.4 mg tabletIndications: under tongue Coronary artery disease every 5 involving venetie coronary minutes as artery of venetie heart, needed for angina presence Chest Pain. unspecified, Chronic systolic heart failure (HCC), Ischemic cardiomyopathy, Chronic obstructive pulmonary disease, unspecified COPD type ([facility]), Hyperlipidemia, unspecified hyperlipidemia type, Pulmonary hypertension ([facility]) [place]-3 Fatty Take 1 Cap by 0 Acids-Vitamin E 1,000 mg mouth daily. cap omeprazole DR(+) Take 40 mg by 0 (PRILOSEC) 40 mg capsule mouth daily. 06/05/2017 rosuvastatin (CRESTOR) 20 Take 1 tablet 90 tablet 3 mg tablet by mouth daily. 11/19/2017 spironolactone Take one-half 45 tablet 3 (ALDACTONE) 25 mg tablet by tabletIndications: mouth daily. Coronary artery disease Take with involving venetie coronary food. artery of venetie heart, angina presence unspecified, Chronic systolic heart failure (HCC), Ischemic cardiomyopathy, Chronic obstructive pulmonary disease, unspecified COPD type (HCC), Hyperlipidemia, unspecified hyperlipidemia type, Pulmonary hypertension (HCC) as of this encounter Plan of Treatment Date/Time Name Priority Associated Diagnoses 03/28/2018 1:38 PM DUTY OFFICER DEVICE EVALUATION - REMOTE ICD Routine Chronic systolic heart failure (HCC) as of this encounter Procedures Comments Procedure Name Priority Date/Time Associated Diagnosis DEVICE EVALUATION - Routine 03/28/2018 Chronic systolic heart REMOTE ICD 1:38 PM DUTY OFFICER failure (HCC) Procedure Note - Rogelio Katz, RN - 03/28/2018 1:45 PM DUTY OFFICER Current monitoring period 03/26/18-06/24 [03/28/2018 1:40:32 PM - ROGELIO KATZ] Please see scanned data sheets for [...] to Dr. Raphael for signature and review. in this encounter Visit Diagnoses Diagnosis Chronic systolic heart failure (HCC) Chronic systolic heart failure in this encounter
--- OUTSIDE RECORDS SUMMARY | 2018-04-02 10:11 | XMS REPORT | Encounter Summary ---
Author Author [facility] Organization [facility] Address Unknown Phone Unavailable Care Team Providers Care Typing Secretary Name Role Phone BlakeMilena Unavailable Unavailable Celio Hernandez MD PCP Leyda Grace RN Unavailable Unavailable Sonja Shah RN Unavailable Unavailable Reason for Visit * Reason Comments Device Check Encounter Details Care Team Description Date Type Department Gemma Porras RN Device Check 03/28/2018 Telephone Cardiovascular Medicine [place] [address] [address] [place] [address] Social History Date Tobacco Use [...] encounter Miscellaneous Notes * Telephone Encounter - Gemma Porras RN - 03/28/2018 1:36 PM DIRECTOR OF [employer]AND [employer]ETING Faxed remote from 03/26/18, 12/25/17 remote and OV check of 12/05/17. [employer] * Telephone Encounter - Gemma Porras RN - 03/28/2018 1:36 PM DIRECTOR OF [employer] MARK[employer] ----- Message from Toya Dacosta LPN sent at 03/28/2018 11:11 AM DIRECTOR OF BRAND MARKETING ----- Regarding: Urgent- fax needed VM on triage line from Jannet at Dr. Frausto office # [phone]. Said that he is in hospital there and Dr. Frausto is seeing him. She needs copy of last device interrogation faxed to her at # [phone]. [employer] in this encounter Plan of Treatment Not on fileas of this encounter Visit Diagnoses Not on filein this encounter
--- OUTSIDE RECORDS SUMMARY | 2018-04-02 10:12 | XMS REPORT | Continuity of Care Document ---
Author Author [facility] Organization [facility] Address Unknown Phone Unavailable Allergies Active Description Code Type Severity Reaction Onset Reported/Identified Relationship to Patient Clinical Status Yes No Known Drug Allergies [id number] Drug Allergy Unknown N/A 03/27/2011 Medications There is no data. Problems Date Dx Coded Attending Type Code Diagnosis Diagnosed By 02/15/1244 THOMAS DURAN MD Ot Z48.812 ENCNTR FOR SURGICAL AFTCR FOLLOWING SURG 02/15/1244 THOMAS DURAN MD Ot Z95.5 PRESENCE OF CORONARY ANGIOPLASTY IMPLANT 04/05/2014 MARVIN SCHAEFFER Ot 397.0 04/05/2014 MARVIN SCHAEFFER K Ot 414.00 04/05/2014 CHINEDU SCHAEFFERTH K Ot 416.8 04/05/2014 SOL LOMAS, MARVIN K Ot 424.0 04/05/2014 MARVIN SCHAEFFER K Ot 428.0 08/27/2014 MARVIN SCHAEFFER Ot 397.0 08/27/2014 SOL LOMAS, MARVIN K Ot 414.00 08/27/2014 CHINEDU SCHAEFFERTH K Ot 416.8 08/27/2014 SOL LOMAS, MARVIN K Ot 424.0 08/27/2014 SOL LOMAS, MARVIN K Ot 428.0 09/02/2014 DARIELA HELLER Ot 288.60 09/02/2014 DARIELA HELLER Ot 790.99 09/02/2014 MARVIN SCHAEFFER K Ot 397.0 09/02/2014 CHINEDU SCHAEFFERTH K Ot 414.00 09/02/2014 CHINEDU SCHAEFFERTH K Ot 416.8 09/02/2014 MARVIN SCHAEFFER K Ot 424.0 09/02/2014 NUNEZ-TEMI PA, MARVIN K Ot 428.0 09/02/2014 ARRONDARIELA ROUGHER OPERATOR Ot 288.60 09/02/2014 ARRONDARIELA ROUGHER OPERATOR Ot 790.99 09/20/2014 ARRONDARIELA ROUGHER OPERATOR Ot 288.60 09/20/2014 ARRONDARIELA ROUGHER OPERATOR Ot 790.99 09/30/2014 ARRONDARIELA ROUGHER OPERATOR Ot 288.60 09/30/2014 ARRONDARIELA ROUGHER OPERATOR Ot 790.99 10/01/2014 NUNEZ-TEMI PA, MARVIN K Ot 397.0 10/01/2014 NUNEZ-TEMI PA, MARVIN K Ot 414.00 10/01/2014 NUNEZ-TEMI PA, MARVIN K Ot 416.8 10/01/2014 NUNEZ-TEMI PA, MARVIN K Ot 424.0 10/01/2014 NUNEZ-TEMI PA, MARVIN K Ot 428.0 10/01/2014 ARRON DARIELA Mohamud ROUGHER OPERATOR Ot 288.60 10/01/2014 ARRONDARIELA ROUGHER OPERATOR Ot 790.99 10/25/2014 NUNEZ-TEMI PA, MARVIN [...] MARVIN K Ot 428.0 04/06/2015 DARIELA HELLER ROUGHER OPERATOR Ot 288.60 04/06/2015 ARRONDARIELA ROUGHER OPERATOR Ot 790.99 04/06/2015 MARVIN SCHAEFFER Ot [...] MD Ot I25.10 ATHSCL HEART DISEASE OF [place] CORONARY 04/13/2015 TAYLOR BROWN MD Ot I25.82 [...] 04/13/2015 TAYLOR BROWN MD Ot Z79.899 OTHER [employer] F[employer]ER (CURRENT) DRUG THERAPY 05/03/2015 MARVIN SCHAEFFER Ot [...] CONGESTIVE HEART FAILURE NOS 05/17/2016 DARIELA HELLER ROUGHER OPERATOR Ot 288.60 LEUKOCYTOSIS, UNSPECIFIED 05/17/2016 DARIELA HELLER ROUGHER OPERATOR Ot 790.99 BLOOD EXAM - OT NONSPECIFIC FINDINGS 05/17/2016 MARVIN SCHAEFFER Ot 414.9 CHR ISCHEMIC HRT DIS NOS 05/17/2016 MARVIN SCHAEFFER Ot 427.31 ATRIAL FIBRILLATION 05/17/2016 MARVIN SCHAEFFER Ot 428.0 CONGESTIVE HEART FAILURE NOS 05/17/2016 MARVIN SCHAEFFER Ot 433.10 CAROTID ARTERY OCCLUSION W O CEREBRAL IN 05/17/2016 MARVIN SCHAEFFER Ot I25.10 ATHSCL HEART DISEASE OF [place] CORONARY 05/17/2016 MARVIN SCHAEFFER Ot I27.0 PRIMARY PULMONARY HYPERTENSION 05/17/2016 AMRVIN SCHAEFFER Ot I48.0 PAROXYSMAL ATRIAL FIBRILLATION 05/17/2016 MARVIN SCHAEFFER Ot I65.23 OCCLUSION AND STENOSIS OF BILATERAL [place] 05/17/2016 Ot E11.9 TYPE 2 DIABETES MELLITUS WITHOUT COMPLIC 05/17/2016 Ot I10 ESSENTIAL ( PRIMARY) HYPERTENSION 05/17/2016 Ot I25.10 ATHSCL HEART DISEASE OF [place] CORONARY 05/17/2016 Ot I48.0 PAROXYSMAL ATRIAL FIBRILLATION 05/20/2016 KEVIN SAENZ, TAYLOR Xiao Ot C43.9 MALIGNANT MELANOMA OF SKIN, UNSPECIFIED 05/20/2016 TAYLOR BROWN MD Ot I25.10 ATHSCL HEART DISEASE OF [place] CORONARY 05/20/2016 TAYLOR BROWN MD Ot I48.0 [...] MD Ot I25.10 ATHSCL HEART DISEASE OF [place] CORONARY 05/23/2016 TAYLOR BROWN MD Ot I48.0 [...] MD Ot I25.10 ATHSCL HEART DISEASE OF [place] CORONARY 06/07/2016 TAYLOR BROWN MD Ot I48.0 [...] MD Ot I25.10 ATHSCL HEART DISEASE OF [place] CORONARY 06/14/2016 TAYLOR BROWN MD Ot I48.0 [...] OF SHAFT OF R 06/04/2017 INGE SILVESTRE DO Ot S93.431A SPRAIN OF TIBIOFIBULAR LIGAMENT OF RIGHT 06/11/2017 INGE SILVESTRE DO Ot S82.431A DISPLACED OBLIQUE FRACTURE OF SHAFT OF R 06/11/2017 INGE SILVESTRE DO Ot S93.431A SPRAIN OF TIBIOFIBULAR LIGAMENT OF RIGHT 07/10/2017 INGE SILVESTRE DO Ot R06.00 DYSPNEA, UNSPECIFIED 07/16/2017 INGE SILVESTRE DO Ot R06.00 DYSPNEA, UNSPECIFIED 03/27/2018 MARVIN SCHAEFFER Ot 397.0 TRICUSPID VALVE DISEASE 03/27/2018 MARVIN SCHAEFFER Ot 414.00 CORON ATHEROSCLER NOS TYPE VESSEL, NATIV 03/27/2018 MARVIN SCHAEFFER Ot 416.8 CHR PULMON HEART DIS NEC 03/27/2018 MARVIN SCHAEFFER Ot 424.0 MITRAL VALVE DISORDER 03/27/2018 MARVIN SCAHEFFER Ot 428.0 CONGESTIVE HEART FAILURE NOS 03/27/2018 DARIELA HELLER Ot 288.60 LEUKOCYTOSIS, UNSPECIFIED 03/27/2018 DARIELA HELLER Ot 790.99 BLOOD EXAM - OT NONSPECIFIC FINDINGS 03/27/2018 MARVIN SCHAEFFER Ot 414.9 CHR ISCHEMIC HRT DIS NOS 03/27/2018 MARVIN SCHAEFFER Ot 427.31 ATRIAL FIBRILLATION 03/27/2018 MARVIN SCHAEFFER Ot 428.0 CONGESTIVE HEART FAILURE NOS 03/27/2018 MARVIN SCHAEFFER Ot 433.10 CAROTID ARTERY OCCLUSION W O CEREBRAL IN 03/27/2018 MARVIN SCHAEFFER Ot I25.10 ATHSCL HEART DISEASE OF [place] CORONARY 03/27/2018 MARVIN SCHAEFFER Ot I27.0 PRIMARY PULMONARY HYPERTENSION 03/27/2018 MARVIN SCHAEFFER Ot I48.0 PAROXYSMAL ATRIAL FIBRILLATION 03/27/2018 MARVIN SCHAEFFER Ot I65.23 OCCLUSION AND STENOSIS OF BILATERAL [place] 03/27/2018 Ot E11.9 TYPE 2 DIABETES MELLITUS WITHOUT COMPLIC 03/27/2018 Ot I10 ESSENTIAL ( PRIMARY) HYPERTENSION 03/27/2018 Ot I25.10 ATHSCL HEART DISEASE OF [place] CORONARY 03/27/2018 Ot I48.0 PAROXYSMAL ATRIAL FIBRILLATION 03/27/2018 TAYLOR BROWN MD Ot C43.9 MALIGNANT MELANOMA OF SKIN, UNSPECIFIED 03/27/2018 TAYLOR BROWN MD Ot I25.10 ATHSCL HEART DISEASE OF [place] CORONARY 03/27/2018 TAYLOR BROWN MD Ot I48.0 PAROXYSMAL ATRIAL FIBRILLATION 03/27/2018 TAYLOR BROWN MD Ot I50.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 03/27/2018 TAYLOR BROWN MD Ot I65.23 OCCLUSION AND STENOSIS OF BILATERAL [place] 03/27/2018 TAYLOR BROWN MD Ot J44.9 CHRONIC OBSTRUCTIVE PULMONARY DISEASE, U 03/27/2018 INGE SILVESTRE DO Ot S82.431A DISPLACED OBLIQUE FRACTURE OF SHAFT OF R 03/27/2018 INGE SILVESTRE DO, Ot S93.431A SPRAIN OF TIBIOFIBULAR LIGAMENT OF RIGHT 03/27/2018 INGE SILVESTRE DO Ot R06.00 DYSPNEA, UNSPECIFIED 03/27/2018 MARVIN SCHAEFFER Ot 397.0 TRICUSPID VALVE DISEASE 03/27/2018 MARVIN SCHAEFFER Ot 414.00 CORON ATHEROSCLER NOS TYPE VESSEL, NATIV 03/27/2018 SOL LOMAS MARVIN Cornell Ot 416.8 CHR PULMON HEART DIS NEC 03/27/2018 SOL LOMAS MARVIN K Ot 424.0 MITRAL VALVE DISORDER 03/27/2018 SOL LOMAS MARVIN Cornell Ot 428.0 CONGESTIVE HEART FAILURE NOS 03/27/2018 DARIELA HELLER ROUGHER OPERATOR Ot 288.60 LEUKOCYTOSIS, UNSPECIFIED 03/27/2018 DARIELA HELLER ROUGHER OPERATOR Ot 790.99 BLOOD EXAM - OTH NONSPECIFIC FINDINGS 03/27/2018 SOL LOMAS MARVIN K Ot 414.9 CHR ISCHEMIC HRT DIS NOS 03/27/2018 SOL LOMAS MARVIN K Ot 427.31 ATRIAL FIBRILLATION 03/27/2018 SOL LOMAS MARVIN K Ot 428.0 CONGESTIVE HEART FAILURE NOS 03/27/2018 SOL LOMAS MARVIN Cornell Ot 433.10 CAROTID ARTERY OCCLUSION W O CEREBRAL IN 03/27/2018 SOL LOMAS MARVIN K Ot I25.10 ATHSCL HEART DISEASE OF [place] CORONARY 03/27/2018 CHINEDU SCHAEFFERTH Cornell Ot I27.0 PRIMARY PULMONARY HYPERTENSION 03/27/2018 SOL LOMAS MARVIN Cornell Ot I48.0 PAROXYSMAL ATRIAL FIBRILLATION 03/27/2018 SOL LOMAS MARVIN K Ot I65.23 OCCLUSION AND STENOSIS OF BILATERAL [place] 03/27/2018 Ot E11.9 TYPE 2 DIABETES MELLITUS WITHOUT COMPLIC 03/27/2018 Ot I10 ESSENTIAL ( PRIMARY) HYPERTENSION 03/27/2018 Ot I25.10 ATHSCL HEART DISEASE OF [place] CORONARY 03/27/2018 Ot I48.0 PAROXYSMAL ATRIAL FIBRILLATION 03/27/2018 TAYLOR BROWN MD Ot C43.9 MALIGNANT MELANOMA OF SKIN, UNSPECIFIED 03/27/2018 TAYLOR BROWN MD Ot I25.10 ATHSCL HEART DISEASE OF [place] CORONARY 03/27/2018 TAYLOR BROWN MD Ot I48.0 PAROXYSMAL ATRIAL FIBRILLATION 03/27/2018 TAYLOR BROWN MD Ot I50.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 03/27/2018 TAYLOR BROWN MD Ot I65.23 OCCLUSION AND STENOSIS OF BILATERAL [place] 03/27/2018 TAYLOR BROWN MD Ot J44.9 CHRONIC OBSTRUCTIVE PULMONARY DISEASE, U 03/27/2018 INGE SILVESTRE DO Ot S82.431A DISPLACED OBLIQUE FRACTURE OF SHAFT OF R 03/27/2018 INGE SILVESTRE DO Ot S93.431A SPRAIN OF TIBIOFIBULAR LIGAMENT OF RIGHT 03/27/2018 INGE SILVESTRE DO Ot R06.00 DYSPNEA, UNSPECIFIED 03/28/2018 GRISELDA SANTOS DO Ot E11.9 TYPE 2 DIABETES MELLITUS WITHOUT COMPLIC 03/28/2018 GRISELDA SANTOS DO Ot E78.5 HYPERLIPIDEMIA, UNSPECIFIED 03/28/2018 GRISELDA SANTOS DO Ot F17.290 NICOTINE DEPENDENCE, OTHER TOBACCO PRODU 03/28/2018 GRISELDA SANTOS DO Ot G81.91 HEMIPLEGIA, UNSPECIFIED AFFECTING RIGHT 03/28/2018 GRISELDA SANTOS DO Ot I11.0 HYPERTENSIVE HEART DISEASE WITH HEART FA 03/28/2018 GRISELDA SANTOS DO Ot I13.0 HYP HRT CHR KDNY DIS W HRT FAIL AND ST 03/28/2018 GRISELDA SANTOS DO Ot I25.10 ATHSCL HEART DISEASE OF [place] CORONARY 03/28/2018 GRISELDA SANTOS DO Ot I25.5 ISCHEMIC CARDIOMYOPATHY 03/28/2018 GRISELDA SANTOS DO Ot I48.0 PAROXYSMAL ATRIAL FIBRILLATION 03/28/2018 GRISELDA SANTOS DO Ot I50.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 03/28/2018 GRISELDA SANTOS DO Ot I50.9 HEART FAILURE, UNSPECIFIED 03/28/2018 GRISELDA SANTOS DO Ot 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 03/28/2018 GRISELDA SANTOS DO Ot I65.23 OCCLUSION AND STENOSIS OF BILATERAL [place] 03/28/2018 GRISELDA SANTOS DO Ot J44.9 CHRONIC OBSTRUCTIVE PULMONARY DISEASE, U 03/28/2018 GRISELDA SANTOS DO Ot N18.9 CHRONIC KIDNEY DISEASE, UNSPECIFIED 03/28/2018 GRISELDA SANTOS DO Ot R29.716 NIHSS SCORE 16 03/28/2018 GRISELDA SANTOS DO Ot R29.810 FACIAL WEAKNESS 03/28/2018 GRISELDA SANTOS DO Ot R47.02 DYSPHASIA 03/28/2018 GRISELDA SANTOS DO Ot 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 Results Test [...] urine sediment by light microscopy 0-2 NRG Capillary blood glucose measurement by glucometer (mass/volume) - 03/27/18 21: 45 Capillary blood glucose measurement by glucometer (mass/volume) 110 mg/dL 70-110 Capillary blood glucose measurement by glucometer (mass/volume) - 03/28/18 05: 09 Capillary blood glucose measurement by glucometer (mass/volume) 131 mg/dL 70-110 Complete blood count (CBC) with automated white blood cell (WBC) differential - 03/28/18 06:31 Blood leukocytes automated count (number/volume) 12.4 10*3/uL 4.3-11.0 Blood erythrocytes automated count (number/volume) 4.28 10*6/uL 4.35-5.85 Venous blood hemoglobin measurement (mass/volume) 12.6 g/dL 13.3-17.7 Blood hematocrit (volume fraction) 38 % 40-54 Automated erythrocyte mean corpuscular volume 88 [foz_us] 80-99 Automated erythrocyte mean corpuscular hemoglobin (mass per erythrocyte) 29 pg 25-34 Automated erythrocyte mean corpuscular hemoglobin concentration measurement ( mass/volume) 33 g/dL 32-36 Automated erythrocyte distribution width ratio 15.6 % 10.0-14.5 Automated blood platelet count (count/volume) 184 10*3/uL 130-400 Automated blood platelet mean volume measurement 11.5 [foz_us] 7.4-10.4 Automated blood neutrophils/100 leukocytes 72 % 42-75 Automated blood lymphocytes/100 leukocytes 16 % 12-44 Blood monocytes/100 leukocytes 11 % 0-12 Automated blood eosinophils/100 leukocytes 1 % 0-10 Automated blood basophils/100 leukocytes 0 % 0-10 Blood neutrophils automated count (number/volume) 8.9 10*3 1.8-7.8 Blood lymphocytes automated count (number/volume) 2.0 10*3 1.0-4.0 Blood monocytes automated count (number/volume) 1.4 10*3 0.0-1.0 Automated eosinophil count 0.1 10*3/uL 0.0-0.3 Automated blood basophil count (count/volume) 0.0 10*3/uL 0.0-0.1 Comprehensive metabolic panel - 03/28/18 06:31 Serum or plasma sodium measurement (moles/volume) 138 mmol/L 135-145 Serum or plasma potassium measurement (moles/volume) 3.7 mmol/L 3.6-5.0 Serum or plasma chloride measurement (moles/volume) 107 mmol/L 98-107 Carbon dioxide 20 mmol/L 21-32 Serum or plasma anion gap determination (moles/volume) 11 mmol/L 5-14 Serum or plasma urea nitrogen measurement (mass/volume) 19 mg/dL 7-18 Serum or plasma creatinine measurement (mass/volume) 1.08 mg/dL 0.60-1.30 Serum or plasma urea nitrogen/creatinine mass ratio 18 NRG Serum or plasma creatinine measurement with calculation of estimated glomerular filtration rate > NRG Serum or plasma glucose measurement (mass/volume) 129 mg/dL 70-105 Serum or plasma calcium measurement (mass/volume) 8.9 mg/dL 8.5-10.1 Serum or plasma total bilirubin measurement (mass/volume) 0.4 mg/dL 0.1-1.0 Serum or plasma alkaline phosphatase measurement (enzymatic activity/volume) 42 U/L 40-136 Serum or plasma aspartate aminotransferase measurement (enzymatic activity/ volume) 17 U/L 5-34 Serum or plasma alanine aminotransferase measurement (enzymatic activity/volume ) 19 U/L 0-55 Serum or plasma protein measurement (mass/volume) 6.0 g/dL 6.4-8.2 Serum or plasma albumin measurement (mass/volume) 3.6 g/dL 3.2-4.5 CALCIUM CORRECTED 9.2 mg/dL 8.5-10.1 Lipid 1996 panel - 03/28/18 06:31 Serum or plasma triglyceride measurement (mass/volume) 139 mg/dL <150 Serum or plasma cholesterol measurement (mass/volume) 115 mg/dL < 200 Serum or plasma cholesterol in HDL measurement (mass/volume) 43 mg/ dL 40-60 Cholesterol in LDL [mass/volume] in serum or plasma by direct assay 48 mg/dL 1-129 Serum or plasma cholesterol in VLDL measurement (mass/volume) 28 mg/ dL 5-40 Capillary blood glucose measurement by glucometer (mass/volume) - 03/28/18 12: 29 Capillary blood glucose measurement by glucometer (mass/volume) 104 mg/dL 70-110 Capillary blood glucose measurement by glucometer (mass/volume) - 03/28/18 16: 50 Capillary blood glucose measurement by glucometer (mass/volume) 128 mg/dL 70-110 Capillary blood glucose measurement by glucometer (mass/volume) - 03/28/18 21: 02 Capillary blood glucose measurement by glucometer (mass/volume) 99 mg/dL 70-110 Capillary blood glucose measurement by glucometer (mass/volume) - 03/29/18 05: 02 Capillary blood glucose measurement by glucometer (mass/volume) 114 mg/dL 70-110 Capillary blood glucose measurement by glucometer (mass/volume) - 03/29/18 12: 36 Capillary blood glucose measurement by glucometer (mass/volume) 129 mg/dL 70-110 Capillary blood glucose measurement by glucometer (mass/volume) - 03/29/18 20: 38 Capillary blood glucose measurement by glucometer (mass/volume) 142 mg/dL 70-110 Capillary blood glucose measurement by glucometer (mass/volume) - 03/30/18 06: 02 Capillary blood glucose measurement by glucometer (mass/volume) 116 mg/dL 70-110 Capillary blood glucose measurement by glucometer (mass/volume) - 03/30/18 11: 54 Capillary blood glucose measurement by glucometer (mass/volume) 124 mg/dL 70-110 Capillary blood glucose measurement by glucometer (mass/volume) - 03/30/18 16: 57 Capillary blood glucose measurement by glucometer (mass/volume) 161 mg/dL 70-110 Capillary blood glucose measurement by glucometer (mass/volume) - 03/30/18 20: 56 Capillary blood glucose measurement by glucometer (mass/volume) 149 mg/dL 70-110 Capillary blood glucose measurement by glucometer (mass/volume) - 03/31/18 06: 03 Capillary blood glucose measurement by glucometer (mass/volume) 127 mg/dL 70-110 Complete blood count (CBC) with automated white blood cell (WBC) differential - 03/31/18 06:45 Blood leukocytes automated count (number/volume) 10.5 10*3/uL 4.3-11.0 Blood erythrocytes automated count (number/volume) 4.48 10*6/uL 4.35-5.85 Venous blood hemoglobin measurement (mass/volume) 13.2 g/dL 13.3-17.7 Blood hematocrit (volume fraction) 39 % 40-54 Automated erythrocyte mean corpuscular volume 87 [foz_us] 80-99 Automated erythrocyte mean corpuscular hemoglobin (mass per erythrocyte) 29 pg 25-34 Automated erythrocyte mean corpuscular hemoglobin concentration measurement ( mass/volume) 34 g/dL 32-36 Automated erythrocyte distribution width ratio 15.8 % 10.0-14.5 Automated blood platelet count (count/volume) 215 10*3/uL 130-400 Automated blood platelet mean volume measurement 12.2 [foz_us] 7.4-10.4 Automated blood neutrophils/100 leukocytes 64 % 42-75 Automated blood lymphocytes/100 leukocytes 22 % 12-44 Blood monocytes/100 leukocytes 11 % 0-12 Automated blood eosinophils/100 leukocytes 3 % 0-10 Automated blood basophils/100 leukocytes 0 % 0-10 Blood neutrophils automated count (number/volume) 6.7 10*3 1.8-7.8 Blood lymphocytes automated count (number/volume) 2.3 10*3 1.0-4.0 Blood monocytes automated count (number/volume) 1.1 10*3 0.0-1.0 Automated eosinophil count 0.4 10*3/uL 0.0-0.3 Automated blood basophil count (count/volume) 0.0 10*3/uL 0.0-0.1 Comprehensive metabolic panel - 03/31/18 06:45 Serum or plasma sodium measurement (moles/volume) 140 mmol/L 135-145 Serum or plasma potassium measurement (moles/volume) 3.7 mmol/L 3.6-5.0 Serum or plasma chloride measurement (moles/volume) 106 mmol/L 98-107 Carbon dioxide 23 mmol/L 21-32 Serum or plasma anion gap determination (moles/volume) 11 mmol/L 5-14 Serum or plasma urea nitrogen measurement (mass/volume) 18 mg/dL 7-18 Serum or plasma creatinine measurement (mass/volume) 0.88 mg/dL 0.60-1.30 Serum or plasma urea nitrogen/creatinine mass ratio 20 NRG Serum or plasma creatinine measurement with calculation of estimated glomerular filtration rate > NRG Serum or plasma glucose measurement (mass/volume) 101 mg/dL 70-105 Serum or plasma calcium measurement (mass/volume) 9.4 mg/dL 8.5-10.1 Serum or plasma total bilirubin measurement (mass/volume) 0.5 mg/dL 0.1-1.0 Serum or plasma alkaline phosphatase measurement (enzymatic activity/volume) 44 U/L 40-136 Serum or plasma aspartate aminotransferase measurement (enzymatic activity/ volume) 22 U/L 5-34 Serum or plasma alanine aminotransferase measurement (enzymatic activity/volume ) 22 U/L 0-55 Serum or plasma protein measurement (mass/volume) 6.3 g/dL 6.4-8.2 Serum or plasma albumin measurement (mass/volume) 3.7 g/dL 3.2-4.5 CALCIUM CORRECTED 9.6 mg/dL 8.5-10.1 Capillary blood glucose measurement by glucometer (mass/volume) - 03/31/18 11: 10 Capillary blood glucose measurement by glucometer (mass/volume) 202 mg/dL 70-110 Capillary blood glucose measurement by glucometer (mass/volume) - 03/31/18 16: 46 Capillary blood glucose measurement by glucometer (mass/volume) 124 mg/dL 70-110 Capillary blood glucose measurement by glucometer (mass/volume) - 03/31/18 20: 56 Capillary blood glucose measurement by glucometer (mass/volume) 157 mg/dL 70-110 Capillary blood glucose measurement by glucometer (mass/volume) - 04/01/18 05: 54 Capillary blood glucose measurement by glucometer (mass/volume) 90 mg/dL 70-110 Capillary blood glucose measurement by glucometer (mass/volume) - 04/01/18 11: 51 Capillary blood glucose measurement by glucometer (mass/volume) 108 mg/dL 70-110 Capillary blood glucose measurement by glucometer (mass/volume) - 04/01/18 16: 56 Capillary blood glucose measurement by glucometer (mass/volume) 150 mg/dL 70-110 Capillary blood glucose measurement by glucometer (mass/volume) - 04/01/18 20: 27 Capillary blood glucose measurement by glucometer (mass/volume) 142 mg/dL 70-110 Encounters ACCT No. Visit Date/Time Discharge Status Pt. Type Provider Facility Loc./Unit Complaint [id number] 03/27/2018 12:32:00 03/28/2018 10:30:00 DIS Outpatient GRISELDA SANTOS DO [facility] 4TH ACUTE CVA ; R HEMIPARESIS [id number] 06/17/2017 08:36:00 06/17/2017 23:59:59 CLS Outpatient INGE SILVESTRE DO [facility] RT DYSPNEA [id number] 06/04/2017 13:37:00 06/04/2017 23:59:59 CLS Preadmit MUNIRA OROZCO MD [facility] RT DYSPNEA [id number] 05/22/2017 12:18:00 05/22/2017 23:59:59 CLS Outpatient INGE SILVESTRE DO [facility] RAD [id number] [id number] 05/17/2016 12:30:00 05/17/2016 23:59:59 CLS Outpatient TAYLOR BROWN MD [facility] CARD CAD,CHF,COPD,PAF [id number] 09/02/2015 11:37:00 09/02/2015 12:45:00 DIS Outpatient THOMAS DURAN MD [facility] CR STENT [id number] 08/19/2015 13:59:00 08/21/2015 00:01:00 DIS Outpatient THOMAS DURAN MD [facility] CR STENT [id number] 04/13/2015 08:59:00 04/13/2015 23:59:59 CLS Outpatient TAYLOR BROWN MD [facility] CATH ABNORMAL STRESS TEST,CAD ,PAF,HTN,HLP,DM [id number] 04/06/2015 07:55:00 04/06/2015 23:59:59 CLS Outpatient MARVIN SCHAEFFER [facility] CARD CAD,FLIP,PAF, PULMONARY HTN [id number] 10/01/2014 08:07:00 10/01/2014 23:59:59 CLS Outpatient MARVIN SCHAEFFER [facility] CARD CAD CHF CAROTID ARTERY STENOSIS AFIB [id number] 08/27/2014 09:22:00 08/27/2014 23:59:59 CLS Outpatient DARIELA HELLER [facility] LAB ABNORMAL CBC/ ELEVATED WBC [id number] 04/30/2013 09:58:00 04/30/2013 23:59:59 CLS Outpatient MARVIN SCHAEFFER [facility] CARD CAD CHF COPD [id number] 04/02/2018 08:05:00 ACT Outpatient TAYLOR BROWN MD [facility] CATH LEFT CVA [id number] 03/28/2018 10:30:00 ACT Inpatient GRISELDA SANTOS DO [facility] IRF CVA [id number] 04/14/2015 13:57:00 Document Registration [id number] 05/23/2011 12:45:00 Document Registration
== END | disposition home or self-care (01) ==
LOC: CATH 08:05
PROVIDERS: ATTEND Internal Medicine Cardiovascular Disease
DX: I11.0 Hypertensive heart disease with heart failure (principal); I50.22 Chronic systolic (congestive) heart failure; I42.9 Cardiomyopathy, unspecified; I47.1 Supraventricular tachycardia; I08.0 Rheumatic disorders of both mitral and aortic valves
CPT/HCPCS: 93312; 93320; 93325

== ENCOUNTER → 2018-06-27 | Outpatient (CLI) | payer MEDICARE, MEDICAID ==
[~2018-06-27] MED LIST changes: +AMIO200T4 PO; +APIX5TAB PO; +HOLD METFORMIN - RECEIVED CONTRAST 20 ML VIAL IV SCH; +IOHEXOL 350 MG/ML 100 ML (OMNIPAQUE 350) VIAL IV ONE; -LIDOCAINE 2% VISCOUS 15 ML UDC ONE; -LIDOCAINE 2% VISCOUS 15 ML UDC PO ONE; -MIDAZOLAM 5 MG/5 ML (VERSED) VIAL ONE; -NS IV 1000 ML 1,000 ML IV ONE; -NS IV 1000 ML 1,000 ML ONE; -fentaNYL INJECTION 100 MCG/2 ML AMP INJ ONE; -fentaNYL INJECTION 100 MCG/2 ML AMP IV ONE; -fentaNYL INJECTION 100 MCG/2 ML AMP ONE
--- NOTE | 2018-06-27 16:13 | Diagnostic Imaging Report ---
Clinical indication: Patient had a stroke. Evaluate carotids. Patient has history of carotid surgery and history of melanoma. Exams: 1: Head CT with and without IV contrast. 2: CT angiogram of the head and neck performed with 100 cc of Omnipaque 350 IV contrast. Sagittal and coronal MIP reformations were created for better visualization of vascular anatomy. Comparison: Ultrasound of the carotids dated 03/28/2018. Head CT without IV contrast dated 03/27/2018. FINDINGS: HEAD CT: There is interval evolution of the previously seen small to moderate-sized infarct involving the lateral left frontal lobe with now encephalomalacia and low density present. There is no evidence of interval acute intracranial process. Stable diffuse mild brain parenchymal volume loss. Stable prominent calvarial scalloped area involving the midline posterior aspect of the skull which may be related to arachnoid granulation versus dermoid lesion. There is no abnormal IV contrast enhancement involving the brain parenchyma. There is no hydrocephalus, brain herniation, or midline shift. Basal cisterns are unremarkable. Extracranial soft tissue, skull, and orbits are otherwise unremarkable. Paranasal sinuses and temporal bone structures show no significant abnormality. CT ANGIOGRAM: There is dense contrast bolus seen within the left subclavian vein, innominate vein, superior vena cava which causes streak artifact obscuring portions of the aortic arch and proximal great vessels. Three-vessel aortic arch is seen. The distal left subclavian artery is partially obscured by dense contrast streak artifact. Otherwise, remainder of the left subclavian artery is patent. The brachiocephalic artery and right subclavian artery is patent. There is mild narrowing of the right distal subclavian artery/axillary artery junction region. The right common carotid artery and right ECA are patent. There is a short segment area of stenosis involving the cervical right ICA bulb with roughly 50% stenosis. Otherwise, the remainder of the cervical left ICA is patent. The left common carotid artery is patent. The left ECA is patent. The left cervical ICA is patent. The left cervical vertebral artery is patent. There is occlusion beginning at the origin regarding the cervical right vertebral artery which is then reconstituted at the C2-C3 intervertebral level. Reconstituted cervical right vertebral artery is very diminutive with areas of vascular irregularity as it extends into the intradural region with similar caliber. The post PICA intradural right vertebral artery is slightly larger in caliber than the pre-PICA portion. Intradural left vertebral artery and PICA are patent. The basilar artery, bilateral superior cerebellar arteries and bilateral [employer] ASSEMBLER are patent. The petrous and cavernous bilateral ICA are patent. The bilateral ACAs and their distal branches and bilateral MCAs and their distal branches are patent. There is bulbous prominence of the left MCA genu which is roughly 3 mm in width and grossly 1-2 mm deep. There is bulbous aneurysmal area seen directed laterally and slightly inferiorly. There are also M2 MCA vessels extending from it. The remainder of the left MCA vessels are patent. The right MCA and its distal branches are patent. Dural venous sinus is patent. There is masslike enlargement and inferior extension of the left thyroid gland which measures grossly 2.5 cm x 2.0 cm in greatest axial dimension and is at least 2.6 cm in craniocaudal dimension below the level of the thyroid gland. This is also seen roughly a centimeter below the level of the upper manubrial border. The neck soft tissue structures show no other significant abnormality. 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 Suspected cardiac pacemaker overlying the left chest which is partially visualized. There are cervical spine degenerative spurs and facet arthropathy. 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 The cervical right vertebral artery is diminutive and is also seen small in size involving the intra-dural portion. This is of unknown age and was also noted on the prior carotid ultrasound exam. 2: There is moderate stenosis involving the cervical right ICA bulb. Otherwise, the remainder of the [place] and neck vascular structures are patent without significant stenosis. 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 4: Interval evolution of the left frontal cerebral infarct which now demonstrates chronic changes. 5: There is a thyroid nodule involving the inferior pole left thyroid gland which has a substernal component. Thyroid ultrasound would better evaluate. Dictated by: Dictated on workstation # [id number]
== END ==
LOC: RAD 13:57
PROVIDERS: ATTEND Physician Assistant
DX: I65.01 Occlusion and stenosis of right vertebral artery (principal); I65.23 Occlusion and stenosis of bilateral carotid arteries; I67.1 Cerebral aneurysm, nonruptured; E04.1 Nontoxic single thyroid nodule; I63.89 Other cerebral infarction; I50.22 Chronic systolic (congestive) heart failure; I25.10 Atherosclerotic heart disease of native coronary artery without angina pectoris; I48.0 Paroxysmal atrial fibrillation; Z98.890 Other specified postprocedural states; Z85.820 Personal history of malignant melanoma of skin
CPT/HCPCS: 70496; 70498

== ENCOUNTER → 2018-08-01 | Outpatient (CLI) | payer MEDICARE, MEDICAID ==
[~2018-08-01] MED LIST changes: -HOLD METFORMIN - RECEIVED CONTRAST 20 ML VIAL IV SCH; -IOHEXOL 350 MG/ML 100 ML (OMNIPAQUE 350) VIAL IV ONE
--- NOTE | 2018-08-01 12:05 | Diagnostic Imaging Report ---
PROCEDURE: US Thyroid. TECHNIQUE: Multiple real-time grayscale images were obtained of the thyroid in various projections. INDICATION: Thyroid nodule. FINDINGS: Right lobe of the thyroid measures 6.1 x 3.0 x 2.1 cm and the left lobe measures 6.4 x 3.0 x 2.3 cm. Bilateral thyroid nodules are present. Nodules on the right are subcentimeter in size, largest approximately 8 mm. Nodule in the left is in the upper pole measuring 1.2 x 0.8 x 1.1 cm. Nodule noted in the substernal and inferior aspect of the left lobe of the thyroid on recent CT angiogram of the head and neck is not appreciated by ultrasound. IMPRESSION: Bilateral thyroid nodules, as described. The substernal left lower pole thyroid nodule noted on CT angiogram from 06/27/2018 cannot be visualized with ultrasound. Dictated by: Dictated on workstation # [id number]
== END ==
LOC: RAD 08:30
PROVIDERS: ATTEND Internal Medicine
DX: E04.2 Nontoxic multinodular goiter (principal)
CPT/HCPCS: 76536

== ENCOUNTER 2019-05-18 13:14 | Inpatient (IN) | payer MEDICARE, MEDICAID ==
[~2019-05-18] VITALS: Ht 167.7 cm; Wt 76.5 kg
[2019-05-18] VITALS (12 sets, daily range): BP systolic 82–118; BP diastolic 30–49
[~2019-05-18 13:14] MED LIST changes: -DIGO125T PO; +DIGO125T3 PO; -GLIM4TAB PO; +GLIM4TAB5 PO; -OMEP20CA12 PO; +OMEP20CA18 PO; +OMEP40CA27 PO; -OMEP40CA36 PO
[2019-05-18] MEDS ORDERED: NS IV 500 ML 500 ML IV SCH (14:15)
[2019-05-18] MEDS ORDERED: SPIR25TA PO (14:23)
[2019-05-18] MEDS ORDERED: AMIO200T4 PO (14:23)
[2019-05-18] MEDS ORDERED: PROP1DRO7 OP (14:23)
[2019-05-18] MEDS ORDERED: CATHETER FLUSH 10 ML SYR IV PRN (14:30)
[2019-05-18] MEDS ORDERED: LACTATED RINGERS 1,000 ML IV ONE (14:30)
[2019-05-18 14:55] LABS: BASOPHILS % (AUTO) 0 % (0-10); EOSINOPHILS # (AUTO) 0.1 10^3/uL (0.0-0.3); EOSINOPHILS % (AUTO) 1 % (0-10); LYMPHOCYTES # (AUTO) 1.3 X 10^3 (1.0-4.0); LYMPHOCYTES % (AUTO) 10 % (12-44); MEAN CORPUSCULAR HEMOGLOBIN 15 PG (25-34); MEAN CORPUSCULAR HGB CONC 26 G/DL (32-36); MEAN CORPUSCULAR VOLUME 56 FL (80-99); MEAN PLATELET VOLUME 10.1 FL (7.4-10.4); MONOCYTES # (AUTO) 0.9 X 10^3 (0.0-1.0); MONOCYTES % (AUTO) 7 % (0-12); NEUTROPHILS % (AUTO) 82 % (42-75); PLATELET COUNT 499 10^3/uL (130-400); RED CELL DISTRIBUTION WIDTH 22.4 % (10.0-14.5); WHITE BLOOD COUNT 12.3 10^3/uL (4.3-11.0)
[2019-05-18 14:59] LABS: HEMOGLOBIN 4.5 G/DL (13.3-17.7)
[2019-05-18 15:00] LABS: HEMATOCRIT 17 % (40-54)
[2019-05-18 15:17] LABS: ALBUMIN 3.5 GM/DL (3.2-4.5); BAND NEUTROPHILS 0 %; BILIRUBIN,TOTAL 0.6 MG/DL (0.1-1.0); CALCIUM 8.8 MG/DL (8.5-10.1); CREATININE SERUM 1.65 MG/DL (0.60-1.30); MAGNESIUM 2.1 MG/DL (1.6-2.4); NEUTROPHILS % (MANUAL) 83 %; PHOSPHORUS 3.2 MG/DL (2.3-4.7); POTASSIUM 4.5 MMOL/L (3.6-5.0); TOTAL PROTEIN 6.1 GM/DL (6.4-8.2)
[2019-05-18 15:18] LABS: ANISOCYTOSIS MODERATE; BASOPHILS % (MANUAL) 0 %; ELLIPT/OVALOCYTES SLIGHT; EOSINOPHILS % (MANUAL) 1 %; HYPOCHROMASIA MODERATE; LYMPHOCYTES % (MANUAL) 12 %; MICROCYTOSIS MODERATE; MONOCYTES % (MANUAL) 4 %; POIKILOCYTOSIS MODERATE; POLYCHROMASIA SLIGHT
[2019-05-18] MEDS: PANTOPRAZOLE 40 MG (PROTONIX) VIAL IV SCH ×2 (16:00→20:10)
[2019-05-18] MEDS: LACTATED RINGERS 1,000 ML IV SCH (16:01)
[2019-05-18 17:11] LABS: INR 1.7 (0.8-1.4); PROTHROMBIN TIME PATIENT 20.7 SEC (12.2-14.7)
[2019-05-18] MEDS ORDERED: MELATONIN 3 MG TABLET PO PRN (17:15)
[2019-05-18] MEDS ORDERED: ONDANSETRON 4 MG/2 ML (SDV) Z0FRAN IV PRN (17:15)
[2019-05-18] MEDS ORDERED: polyethylene glycoL POWDER 17 GM (MIRALAX) PACK PO PRN (17:15)
[2019-05-18] MEDS ORDERED: ONDANSETRON 4 MG (ZOFRAN) ORAL DISSOLVE TAB PO PRN (17:15)
[2019-05-18] MEDS ORDERED: ACETAMINOPHEN 325 MG TABLET PO PRN (17:15)
[2019-05-18] MEDS ORDERED: BISACODYL 10 MG SUPP (DULCOLAX) PR PRN (17:15)
--- NOTE | 2019-05-18 17:18 | History & Physical-Hospitalist ---
History of Present Illness HPI/Chief Complaint John Payne is a 79-year-old male with past medical history of hypertension, hyperlipidemia, atrial fibrillation, heart failure with reduced ejection fraction, who presented to Dr. Owen's office with weakness. Further lab evaluation revealed a that he had a hemoglobin of 4.8 and he was directly admitted to [facility]. He reports that he is been having lightheadedness and dizziness. He denies any chest pain or shortness of breath. He denies any hematochezia, melena, hematemesis, hematuria, or other visible blood loss. He reports that he has had a colonoscopy but is not sure when that was done. He lives at an assisted living facility. Source: patient Exam Limitations: no limitations Date Seen 05/18/19 Time Seen by a Provider: 14:00 Attending Physician Marily Hogue MD PCP Hayden Owen MD Referring Physician Date of Admission May 18, 2019 at 14:05 Home Medications & Allergies Home Medications Reviewed patient Home Medication Reconciliation performed by pharmacy medication reconciliations orthotic technician and/or nursing. Patients Allergies have been reviewed. Allergies Allergies Coded Allergies No Known Drug Allergies (Unverified03/27/11) Past Rqoorod-Zhxlrs-Gszbjh Hx Past Med/Social Hx: Reviewed Nursing Past Med/Soc Hx Patient Social History Type Used: Pipe Recent Hopitalizations: Yes (CVA) Immunizations Up To Date Date of Pneumonia Vaccine: Dec 20, 2013 Date of Influenza Vaccine: Dec 16, 2017 Past Medical History Surgeries: Cardiac, Defibrillator Respiratory: COPD Cardiac: Atrial Fibrillation, Chronic Edema/Swelling, Coronary Artery Disease, High Cholesterol, Hypertension Reproductive: No Genitourinary: Renal Failure Gastrointestinal: Gastroesophageal Reflux Musculoskeletal: Arthritis Endocrine: Diabetes, Non-Insulin dep Cancer: Skin Did You Recieve Any Treatments: Yes What Type of Treatment Did You: Surgical Intervention History of Blood Disorders: Yes Family History Diabetes Review of Systems Constitutional: dizziness, weakness EENTM: no symptoms reported Respiratory: no symptoms reported Cardiovascular: no symptoms reported Gastrointestinal: no symptoms reported Genitourinary: no symptoms reported Musculoskeletal: no symptoms reported Skin: no symptoms reported Psychiatric/Neurological: No Symptoms Reported Physical Exam Physical Exam Vital Signs Vital Signs - First Documented 05/18/19 05/18/19 05/18/19 05/18/19 13:59 14:00 15:58 16:03 Temp 35.9 Pulse 60 Resp 18 B/P (MAP) 94/44 (61) Pulse Ox 94 O2 Delivery Room Air Capillary Refill : Height, Weight, BMI Height: 5'7.00" Weight: 190lbs. 2.0oz. 86.266802mu; 29.8 BMI Method:Estimated General Appearance: No Apparent Distress, Chronically ill HEENT: PERRL/EOMI, Pharynx Normal Neck: Normal Inspection, Supple Respiratory: Lungs Clear, Normal Breath Sounds, No Respiratory Distress Cardiovascular: Regular Rate, Rhythm, No Edema, No Murmur Gastrointestinal: Normal Bowel Sounds, Non Tender, Soft Extremity: Normal Inspection, Non Tender Neurologic/Psychiatric: Alert, Oriented x3, No Motor/Sensory Deficits, Normal Mood/Affect Skin: Pallor Results Results/Procedures Labs Laboratory Tests 05/18/19 14:25 Patient resulted labs reviewed. Assessment/Plan Admission Diagnosis symptomatic anemia Admission Status: Inpatient Order (span 2 midnights) Reason for Inpatient Admission: symptomatic anemia requiring transfusion and further evaluation Assessment and Plan Symptomatic anemia Hemoglobin 4.[address] Owen's office Performed type and screen and transfuse 2 units PRBC Repeat CBC now and after transfusion Obtain fecal occult blood obtain iron studies Monitor on telemetry IV PPI twice a day Chronic atrial fibrillation Hold Eliquis Continue amiodarone and digoxin Heart failure with reduced ejection fraction Hold diuretics Hold beta blockers with low blood pressure Hypertension Hold antihypertensives in setting of hypotension DVT prophylaxis: SCDs, pharmacologic prophylaxis held due to possible GI bleeding Diagnosis/Problems Diagnosis/Problems (1) Symptomatic anemia Status: Acute MARILY HOGUE MD May 18, 2019 17:18
[2019-05-18] MEDS: METHIMAZOLE TABLET 5 MG TABLET PO SCH (20:10)
[2019-05-18 22:26] LABS: BASOPHILS % (AUTO) 0 % (0-10); EOSINOPHILS # (AUTO) 0.1 10^3/uL (0.0-0.3); EOSINOPHILS % (AUTO) 1 % (0-10); HEMATOCRIT 23 % (40-54); LYMPHOCYTES % (AUTO) 18 % (12-44); MEAN CORPUSCULAR HEMOGLOBIN 19 PG (25-34); MEAN CORPUSCULAR HGB CONC 31 G/DL (32-36); MEAN CORPUSCULAR VOLUME 63 FL (80-99); MEAN PLATELET VOLUME 9.9 FL (7.4-10.4); MONOCYTES # (AUTO) 1.4 X 10^3 (0.0-1.0); MONOCYTES % (AUTO) 12 % (0-12); NEUTROPHILS # (AUTO) 7.9 X 10^3 (1.8-7.8); NEUTROPHILS % (AUTO) 69 % (42-75); PLATELET COUNT 423 10^3/uL (130-400); RED CELL DISTRIBUTION WIDTH 30.8 % (10.0-14.5); WHITE BLOOD COUNT 11.5 10^3/uL (4.3-11.0)
[2019-05-18 22:29] LABS: HEMOGLOBIN 6.9 G/DL (13.3-17.7); SMEAR SCAN COMMENT YES
[2019-05-19] VITALS (10 sets, daily range): BP systolic 101–120; BP diastolic 44–68
[2019-05-19] MEDS: LACTATED RINGERS 1,000 ML IV SCH ×3 (00:06→19:47)
[2019-05-19 03:46] LABS: BASOPHILS % (AUTO) 0 % (0-10); EOSINOPHILS # (AUTO) 0.2 10^3/uL (0.0-0.3); EOSINOPHILS % (AUTO) 2 % (0-10); HEMATOCRIT 21 % (40-54); LYMPHOCYTES # (AUTO) 1.9 X 10^3 (1.0-4.0); LYMPHOCYTES % (AUTO) 18 % (12-44); MEAN CORPUSCULAR HEMOGLOBIN 19 PG (25-34); MEAN CORPUSCULAR HGB CONC 30 G/DL (32-36); MEAN CORPUSCULAR VOLUME 63 FL (80-99); MEAN PLATELET VOLUME 10.1 FL (7.4-10.4); MONOCYTES # (AUTO) 1.2 X 10^3 (0.0-1.0); MONOCYTES % (AUTO) 12 % (0-12); NEUTROPHILS # (AUTO) 7.4 X 10^3 (1.8-7.8); NEUTROPHILS % (AUTO) 69 % (42-75); PLATELET COUNT 418 10^3/uL (130-400); RED CELL DISTRIBUTION WIDTH 30.2 % (10.0-14.5); WHITE BLOOD COUNT 10.8 10^3/uL (4.3-11.0)
[2019-05-19 03:58] LABS: HEMOGLOBIN 6.4 G/DL (13.3-17.7)
[2019-05-19 04:06] LABS: BUN/CREATININE RATIO 16; CALCIUM 8.2 MG/DL (8.5-10.1); CARBON DIOXIDE 21 MMOL/L (21-32); CHLORIDE 106 MMOL/L (98-107); CREATININE SERUM 1.13 MG/DL (0.60-1.30); GFR ESTIMATED > 60; MAGNESIUM 1.9 MG/DL (1.6-2.4); PHOSPHORUS 2.8 MG/DL (2.3-4.7); POTASSIUM 4.1 MMOL/L (3.6-5.0); SODIUM 136 MMOL/L (135-145)
[2019-05-19 04:08] LABS: GLUCOSE 38 MG/DL (70-105)
[2019-05-19] MEDS ORDERED: NS IV 500 ML 500 ML IV SCH (08:45)
[2019-05-19] MEDS: DIGOXIN 0.125 MG (LANOXIN) TAB PO SCH (09:51)
[2019-05-19] MEDS: AMIODARONE 200 MG (CORDARONE) TAB PO SCH (09:51)
[2019-05-19] MEDS: PANTOPRAZOLE 40 MG (PROTONIX) VIAL IV SCH ×2 (09:51→19:47)
--- NOTE | 2019-05-19 11:05 | NUR ---
visited w/ pt who expressed no needs at this time and has been pleased with his care here.
--- NOTE | 2019-05-19 12:23 | NUR ---
THIS NURSE NOTIFIED DR HOGUE PT BLOOD SUGAR WAS 44. PT IS ASYMPTOMATIC. PT ATE 3 PEANUT BUTTER CUPS AND 2 ORANGE JUICES. PT BLOOD SUGAR THEN WAS 61. PT WAS SITTING UP EATING LUNCH WITH ANOTHER ORANGE JUICE. DR HOGUE ORDERED 1HOUR ACCU CHECKS. DR HOGUE TO PUT IN LAB ORDERS AND CALL AND HAVE LAB DRAW THEM IF PT BLOOD SUGAR IS LESS THAN 50. NURSE AT BEDSIDE. WILL CONTINUE TO MONITOR.
--- NOTE | 2019-05-19 12:24 | Physical Therapy Evaluation ---
PT Evaluation-General Medical Diagnosis Admission Date May 18, 2019 at 14:05 Medical Diagnosis: Symptomatic Anemia Onset Date: May 18, 2019 Therapy Diagnosis Therapy Diagnosis: Deconditioning Height/Weight Height (Feet): 5 Height (Inches): 7.00 Weight (Pounds): 190 Weight (Ounces): 2.0 Precautions Precautions/Isolations: Fall Prevention, Standard Precautions Weight Bear Status Right Lower Extremity: Right Weight Bearing/Tolerated Left Lower Extremity: Left Weight Bearing/Tolerated Referral Physician: Loulou Reason for Referral: Evaluation/Treatment Medical History Pertinent Medical History: Atrial Fib, Arthritis, CAD, COPD, DM, GERD, Heart Failure, HTN, Renal Insufficiency Additional Medical History skin cancer Current History Patient was a direct admit from Dr. Owen's office with hemoglobin of 4.8 Reviewed History: Yes Social History Home: Assisted Living Prior Prior Level of Function SCALE: Activities may be completed with or without assistive devices. 8-Uorwdwziam-bpncqus completes the activity by him/herself with no assistance from a helper. 5-Set-up or Clean-up Assistance-helper sets up or cleans up; patient completes activity. [place] assists only prior to or following the activity. 4-Supervision or Touching Assistance-helper provides verbal cues and/or touching/steadying and/or contact guard assistance as patient completes activity. Assistance may be provided throughout the activity or intermittently. 3-Partial/Moderate Assistance-helper does LESS THAN HALF the effort. [place] lifts, holds or supports trunk or limbs, but provides less than half the effort. 2-Substantial/Maximal Assistance-helper does MORE THAN HALF the effort. [place] lifts or holds trunk or limbs and provides more than half the effort. 6-Lbqdptrpd-jcdxcx does ALL the effort. Patient does none of the effort to complete the activity. Or, the assistance of 2 or more helpers is required for the patient to complete the activity. If activity was not attempted, code reason: 7-Patient Refused. 9-Not Applicable-not attempted and the patient did not perform the activity before the current illness, exacerbation or injury. 10-Not Attempted due to Environmental Limitations-(lack of equipment, weather restraints, etc.). 88-Not Attempted due to Medical Conditions or Safety Concerns. Bed Mobility: 6 Transfers (B,C,W/C): 6 Gait: 6 Prior Devices Use: None PT Evaluation-Current Subjective Patient agreeable to therapy at this time. Pain Numeric Pain Scale: 0-No Pain Objective Patient Orientation: Person, Place ROM/Strength ROM Lower Extremities WNL BLE Strength Lower Extremities WFL BLE Integumentary/Posture Integumentary See nursing notes. Sensory Hearing: Functional Sensation Right Lower Extremit: Intact Sensation Left Lower Extremity: Intact Transfers Roll Left to Right (QC): 6 Lying to Sitting/Side of Bed(Q: 6 Chair/Uce-nu-Sboch Xfer(QC): 6 Gait Does the Patient Walk?: No and Walking Goal IS indicated Wheelchair Training Does the Pt Use a Wheelchair?: No Balance Sitting Static: Good Sitting Dynamic: Good Standing Static: Good Standing Dynamic: Good Assessment/Needs Patient performed stand pivot transfer to recliner. Patient receiving blood transfusion at time of treatment. Patient will benefit from short term skilled services to improve strength to reach maximum LOF. Rehab Potential: Good PT Intermediate Goals Real Time Analyst Goals PT Intermediate Goals Time Frame: May 26, 2019 Roll Left & Right (QC): 6 Sit to Lying (QC): 6 Lying-Sitting on Side/Bed(QC): 6 Sit to Stand (QC): 6 Chair/Zpw-vu-Kzals Xfer(QC): 6 Toilet Transfer (QC): 6 Does the Patient Walk: Yes Walk 10 feet (QC): 6 Walk 50ft with 2 Turns (QC): 6 Walk 150 ft (QC): 6 PT Plan Problem List Problem List: Activity Tolerance, Functional Strength, Safety, Balance, Gait, Transfer, Bed Mobility, ROM Treatment/Plan Treatment Plan: Continue Plan of Care Treatment Plan: Bed Mobility, Education, Functional Activity Kristine, Functional Strength, Gait, Safety, Therapeutic Exercise, Transfers Treatment Duration: May 26, 2019 Frequency: 5 times per week Estimated Hrs Per Day: .25 hour per day Patient and/or Family Agrees t: Yes Safety Risks/Education Patient Education: Transfer Techniques Teaching Recipient: Patient Discharge Recommendations Therapy Discharge Recommendati: Assisted Living Time/GCodes Time In: 1143 Time Out: 1153 Total Billed Treatment Time: 10 Total Billed Treatment 1 visit EVL 10 CRISTIAN SAUCEDA PT May 19, 2019 12:03
[2019-05-19] MEDS ORDERED: AMIO200T4 PO (13:16)
[2019-05-19] MEDS ORDERED: CHOL20002 PO (13:16)
[2019-05-19] MEDS ORDERED: PROP10DR3 OU (13:16)
[2019-05-19] MEDS ORDERED: SPIR25TA5 PO (13:16)
--- NOTE | 2019-05-19 13:17 | NUR ---
ENTERED THE MED REC USING THE MEDICATION REVIEW REPORT FROM DIVINA LOPEZ IN [place]
--- NOTE | 2019-05-19 13:19 | Occupational Therapy Eval ---
OT Evaluation-General/PLF Medical Diagnosis Admission Date May 18, 2019 at 14:05 Medical Diagnosis: Symptomatic Anemia Onset Date: May 18, 2019 Therapy Diagnosis Therapy Diagnosis: Weakness Height/Weight Height (Feet): 5 Height (Inches): 7.00 Weight (Pounds): 190 Weight (Ounces): 2.0 Precautions Precautions/Isolations: Fall Prevention, Standard Precautions Safety Interventions: None Weight Bear Status Weight Bearing Restriction: Weight Bearing/Tolerated Referral Physician: Loulou Referral Reason: Activity Tolerance, Self Care, Evaluation/Treatment, Strengthening/ROM Medical History Pertinent Medical History: Atrial Fib, Arthritis, CAD, COPD, DM, GERD, Heart Failure, HTN, Renal Insufficiency Additional Medical History Heart failure, reduced ejection fraction Reviewed History: Yes Social History Home: Assisted Living Current Living Status: Entry Into Home: Level Entry ADL-Prior Level of Function SCALE: Activities may be completed with or without assistive devices. 1-Ebsnixfzpy-xpvvdca completes the activity by him/herself with no assistance from a helper. 5-Set-up or Clean-up Assistance-helper sets up or cleans up; patient completes activity. [place] assists only prior to or following the activity. 4-Supervision or Touching Assistance-helper provides verbal cues and/or touching/steadying and/or contact guard assistance as patient completes activity. Assistance may be provided throughout the activity or intermittently. 3-Partial/Moderate Assistance-helper does LESS THAN HALF the effort. [place] lifts, holds or supports trunk or limbs, but provides less than half the effort. 2-Substantial/Maximal Assistance-helper does MORE THAN HALF the effort. [place] lifts or holds trunk or limbs and provides more than half the effort. 0-Eyzterqoi-caxiei does ALL the effort. Patient does none of the effort to complete the activity. Or, the assistance of 2 or more helpers is required for the patient to complete the activity. If activity was not attempted, code reason: 7-Patient Refused. 9-Not Applicable-not attempted and the patient did not perform the activity before the current illness, exacerbation or injury. 10-Not Attempted due to Environmental Limitations-(lack of equipment, weather restraints, etc.). 88-Not Attempted due to Medical Conditions or Safety Concerns. ADL PLOF Comments Pt. reports that he lives in an assisted living facility, and has for 7 years. Pt. states that he does his own bathing/dressing. Self Care: Unknown Functional Cognition: Unknown DME/Equipment: Bath Chair, Shower DME/Equipment Comments Pt. does not use ambulation device. OT Current Status Subjective No pain reported. Appearance Pt. in bed. Receiving blood. Hemoglobin low but nursing okay with pt. getting to chair for lunch. Pt. alert and agreeable. Mental Status/Objective Patient Orientation: Person, Place Attachments: IV ADL-Treatment Eating (QC): 6 (Pt. able to set up his own tray and feed self once lunch tray arrived.) On/Off Footwear (QC): 5 (Set up to don slipper socks at bed level.) Pt. transferred supine-sit independently, and transferred to chair with SBA only due to lines. Pt. did not use ambulation device. Education OT Patient Education: Modified ADL techniques, Progress toward Goal/Update tx plan, Purpose of tx/functional activities, Transfer techniques Teaching Recipient: Patient, Family Teaching Methods: Demonstration, Discussion Response to Teaching: Verbalize Understanding, Return Demonstration OT Prison Goals Prison Goals Time Frame: May 26, 2019 Eating (QC): 6 Oral Hygiene (QC): 6 Toileting Hygiene (QC): 6 Shower/Bathe Self (QC): 5 Upper Body Dressing (QC): 6 Lower Body Dressing (QC): 6 On/Off Footwear (QC): 6 Additional Goals: 1-Demonstrate ADL Tasks, 2-Verbalize Understanding, 3- ImproveStrength/Kristine 1=Demonstrate adherence to instructed precautions during ADL tasks. 2=Patient will verbalize/demonstrate understanding of assistive devices/modifications for ADL. 3=Patient will improve strength/tolerance for activity to enable patient to perform ADL's. OT Education/Plan Problem List/Assessment Assessment: Decreased Activ Tolerance, Impaired I ADL's Discharge Recommendations Plan/Recommendations: Continue POC Therapy Discharge Recommendati: Assisted Living Treatment Plan/Plan of Care Treatment,Training & Education: Yes Patient would benefit from OT for education, treatment and training to promote independence in ADL's, mobility, safety and/or upper extremity function for ADL's. Plan of Care: ADL Retraining, Functional Mobility, UE Funct Exercise/Act Treatment Duration: May 26, 2019 Frequency: 5 times per week Estimated Hrs Per Day: .5 hour per day Agreement: Yes Rehab Potential: Good Time/GCodes Start Time: 11:40 Stop Time: 11:55 Total Time Billed (hr/min): 15 Billed Treatment Time 1, JESSY BOND OT May 19, 2019 13:19
[2019-05-19 17:06] LABS: HEMOGLOBIN 8.5 G/DL (13.3-17.7)
--- NOTE | 2019-05-19 17:17 | NUR ---
THIS NURSE NOTIFIED DR HOGUE PT LAST [address] BLOOD SU[address] HOGEU ORDERED ACHS ACCU CHECKS. ORDERS GIVEN TO STILL GET LABS IF PT BLOOD SUGAR IS LESS THAN 50.
--- NOTE | 2019-05-19 17:21 | Progress Note - Hospitalist ---
Subjective HPI/CC On Admission Date Seen by Provider: May 19, 2019 Time Seen by Provider: 08:50 John Payne is a 79-year-old male with past medical history of hypertension, hyperlipidemia, atrial fibrillation, heart failure with reduced ejection fraction, who presented to Dr. Owen's office with weakness. Further lab evaluation revealed a that he had a hemoglobin of 4.8 and he was directly admitted to [facility]. He reports that he is been having lightheadedness and dizziness. He denies any chest pain or shortness of breath. He denies any hematochezia, melena, hematemesis, hematuria, or other visible blood loss. He reports that he has had a colonoscopy but is not sure when that was done. He lives at an assisted living facility. Subjective/Events-last exam He has not had any more lightheadedness or dizziness. He is feeling better after the transfusions. He denies any hematochezia or melena. He denies any shortness of breath or chest pain. Objective Exam Vital Signs Vital Signs Date Time Temp Pulse Resp B/P (MAP) Pulse Ox O2 Delivery O2 Flow Rate FiO2 05/19/19 16:00 98 Room Air 05/19/19 16:00 36.8 67 18 111/45 Capillary Refill : Less Than 3 Seconds General Appearance: No Apparent Distress, WD/WN Respiratory: Lungs Clear, Normal Breath Sounds, No Respiratory Distress Cardiovascular: Regular Rate, Rhythm, No Edema, No Murmur Gastrointestinal: Normal Bowel Sounds, Non Tender, Soft Extremity: Normal Inspection, Non Tender, No Pedal Edema Neurologic/Psychiatric: Alert, Oriented x3, No Motor/Sensory Deficits, Normal Mood/Affect Skin: Normal Color, Warm/Dry Results/Procedures Lab Laboratory Tests 05/18/19 22:14 05/19/19 03:15 05/19/19 16:58 Patient resulted labs reviewed. Assessment/Plan Assessment and Plan Assess & Plan/Chief Complaint Symptomatic anemia Likely acute blood loss anemia Hemoglobin 6.4 Status post 2 units PRBC yesterday Transfuse 2 units PRBC today Repeat hemoglobin after transfusion Consult surgery for possible endoscopic evaluation Continue PPI Chronic atrial fibrillation Hold Eliquis Continue amiodarone and digoxin Heart failure with reduced ejection fraction Hold diuretics Hold beta blockers with low blood pressure Hypertension Hold antihypertensives in setting of hypotension DVT prophylaxis: SCDs, pharmacologic prophylaxis held due to possible GI bleeding Diagnosis/Problems Diagnosis/Problems (1) Symptomatic anemia Status: Acute Clinical Quality Measures DVT/VTE Risk/Contraindication: Risk Factor Score Per Nursin RFS Level Per Nursing on Admit: 4+=Very High Other: LOW HGB OF SANCHEZMARILY HERNANDEZ MD May 19, 2019 17:21
--- NOTE | 2019-05-19 17:54 | Consultation - Surgery ---
NORIS LOPEZ [facility] 05/19/19 1754: History of Present Illness History of Present Illness Patient Consulted On(zeenat/time) 05/19/19 17:47 Date Seen by Provider: May 19, 2019 Time Seen by Provider: 17:00 Reason for Visit: Anemia of unknown cause History of Present Illness John is a 79 y/o male that presented to via rupal for hemoglobin of 4.8. Since his admission he has received 4 units of blood. General Surgery was consulted by Dr. Jamil. Patient denies blood in stool and hematemesis. Cu rrently waiting on occult blood testing and iron studies. His last colonoscopy was over ten years ago and he denies abdominal pain at this time. Patient states he has also had a minor weight loss but accredits that to him not eating much. . Allergies and Home Medications Allergies Coded Allergies: No Known Drug Allergies (Unverified , 03/27/11) Home Medications Amiodarone HCl 200 Mg Tablet, 200 MG PO DAILY, (Reported) Apixaban 5 Mg Tablet, 5 MG PO BID Prescribed by: GRISELDA SANTOS on 04/08/18 0851 Aspirin 81 Mg Tablet., 81 MG PO DAILY, (Reported) Atorvastatin Calcium 80 Mg Tablet, 80 MG PO DAILY, (Reported) Carvedilol 6.25 Mg Tablet, 6.25 MG PO BID, (Reported) HOLD FOR SYSTOLIC BLOOD PRESSURE <100 OR HR <50 - CALL NURSE Cholecalciferol (Vitamin D3) 50 Mcg Capsule, 50 MCG PO DAILY, (Reported) Digoxin 125 Mcg Tablet, 125 MCG PO DAILY, (Reported) Enalapril Maleate 2.5 Mg Tablet, 2.5 MG PO DAILY, (Reported) Furosemide 40 Mg Tablet, 40 MG PO DAILY, (Reported) Glimepiride 4 Mg Tablet, 4 MG PO DAILY, (Reported) Methimazole 5 Mg Tablet, 5 MG PO DAILY, (Reported) Omeprazole 20 Mg Capsule.dr, 20 MG PO DAILY, (Reported) Propylene Glycol 10 Ml Drops, 1 DROP OU Q12H PRN for DRY EYES, (Reported) Spironolactone 25 Mg Tablet, 25 MG PO DAILY, (Reported) Past Scnirpb-Gbivep-Xwarhg Hx Patient Social History Alcohol Use: Denies Use Recreational Drug Use: No Type Used: Pipe Recent Foreign Travel: No Contact w/Someone Who Travel: No Recent Infectious Disease Expo: No Recent Hopitalizations: No Physical Abuse Screen: No Sexual Abuse: No Immunizations Up To Date Date of Pneumonia Vaccine: Mar 19, 2019 Date of Influenza Vaccine: Dec 16, 2018 Seasonal Allergies Seasonal Allergies: No Surgeries History of Surgeries: No Surgeries: Cardiac, Defibrillator Respiratory History of Respiratory Disorde: No Cardiovascular History of Cardiac Disorders: Yes Cardiac Disorders: Atrial Fibrillation, Chronic Edema/Swelling, Coronary Artery Disease, High Cholesterol, Hypertension Neurological History of Neurological Disord: Yes Reproductive System Hx Reproductive Disorders: No Genitourinary History of Genitourinary Disor: No Genitourinary Disorders: Renal Failure Gastrointestinal History of Gastrointestinal Di: Yes Gastrointestinal Disorders: Gastroesophageal Reflux Musculoskeletal History of Musculoskeletal Dis: Yes (Rt hemiparesis since CVA ) Musculoskeletal Disorders: Arthritis Endocrine History of Endocrine Disorders: Yes Endocrine Disorders: Diabetes, Non-Insulin dep HEENT Loss of Vision: Denies Hearing Impairment: Denies Cancer History of Cancer: No Cancer: Skin Psychosocial History of Psychiatric Problem: No Integumentary History of Skin or Integumenta: No Blood Transfusions History of Blood Disorders: No Adverse Reaction to a Blood Tr: No Family Medical History Significant Family History: Diabetes Review of Systems-General Constitutional: weakness, weight loss (Intentional ) EENTM: no symptoms reported Respiratory: no symptoms reported Cardiovascular: no symptoms reported Gastrointestinal: no symptoms reported Musculoskeletal: muscle weakness (Right arm and right side of face) Skin: no symptoms reported Psychiatric/Neurological: No Symptoms Reported Physical Exam-General Problems Physical Exam Vital Signs Vital Signs - First Documented 05/18/19 05/18/19 05/18/19 05/18/19 13:59 14:00 15:58 16:03 Temp 35.9 Pulse 60 Resp 18 B/P (MAP) 94/44 (61) Pulse Ox 94 O2 Delivery Room Air Capillary Refill : Less Than 3 Seconds General Appearance: WD/WN, no apparent distress HEENT: PERRL/EOMI, other (No upper or lower teeth noted. Patien also has right side droop. ) Neck: non-tender, normal inspection Respiratory: chest non-tender, no respiratory distress, no accessory muscle use Gastrointestinal: non tender, soft, no organomegaly; No distended, No guarding, No rebound Extremities: no calf tenderness, other (RUE weakness) Neurologic/Psychiatric: alert, normal mood/affect, oriented x 3, other Skin: normal color, warm/dry Lymphatic: no adenopathy Data Review Labs Laboratory Tests 05/18/19 22:14: White Blood Count 11.5H, Red Blood Count 3.57L, Hemoglobin 6.9#*L, Hematocrit 23L, Mean Corpuscular Volume 63L, Mean Corpuscular Hemoglobin 19L, Mean Corpuscular Hemoglobin Concent 31L, Red Cell Distribution Width 30.8H, Platelet Count 423H, Mean Platelet Volume 9.9, Neutrophils (%) (Auto) 69, Lymphocytes (%) (Auto) 18, Monocytes (%) (Auto) 12, Eosinophils (%) (Auto) 1, Basophils (%) (Auto) 0, Neutrophils # (Auto) 7.9H, Lymphocytes # (Auto) 2.0, Monocytes # (Auto) 1.4H, Eosinophils # (Auto) 0.1, Basophils # (Auto) 0.0, Smear Scan YES 05/19/19 03:15: White Blood Count 10.8, Red Blood Count 3.38L, Hemoglobin 6.4*L, Hematocrit 21L, Mean Corpuscular Volume 63L, Mean Corpuscular Hemoglobin 19L, Mean Corpuscular Hemoglobin Concent 30L, Red Cell Distribution Width 30.2H, Platelet Count 418H, Mean Platelet Volume 10.1, Neutrophils (%) (Auto) 69, Lymphocytes (%) (Auto) 18, Monocytes (%) (Auto) 12, Eosinophils (%) (Auto) 2, Basophils (%) (Auto) 0, Neutrophils # (Auto) 7.4, Lymphocytes # (Auto) 1.9, Monocytes # (Auto) 1.2H, Eosinophils # (Auto) 0.2, Basophils # (Auto) 0.0, Sodium Level 136, Potassium Level 4.1, Chloride Level 106, Carbon Dioxide Level 21, Anion Gap 9, Blood Urea Nitrogen 18, Creatinine 1.13, Estimat Glomerular Filtration Rate > 60, BUN/Creatinine Ratio 16, Glucose Level 38*L, Calcium Level 8.2L, Phosphorus Level 2.8, Magnesium Level 1.9 05/19/19 04:13: Glucometer 46*L 05/19/19 04:40: Glucometer 61L 05/19/19 10:22: Glucometer 74 05/19/19 11:30: Glucometer 44*L 05/19/19 11:48: Lab Scanned Report Transfusion Reaction Form 05/19/19 11:56: Glucometer 48*L 05/19/19 12:21: Glucometer 61L 05/19/19 12:46: Glucometer 76 05/19/19 13:53: Glucometer 85 05/19/19 15:00: Glucometer 93 05/19/19 15:56: Glucometer 105 05/19/19 16:58: Glucometer 87, Hemoglobin 8.5#L, Hematocrit 27L Assessment/Plan Assessment/Plan Assessment/Plan symptomatic anemia requiring transfusion and further evaluation Patient has received 4 units of blood since admission and hemoglobin has gone from 4.5 to 8.5. Currently awaiting occult blood test. Plan on EGD/Colonoscopy 05/21/2019. Patient should be NPO starting today 05/19/2019 and starting bowel prep tomorrow 05/20/2019. If patients hemoglobin begins to drop we will move forward with performing an emergent EGD. Additionally all anticoagulation and antiplatelets medications should be held starting today 05/19/2019. Patients last known colonoscopy was over ten years ago. He was made aware of the risk and benefits associated with EGD and colonoscopy and wishes to proceed. Clinical Quality Measures DVT/VTE Risk/Contraindication: Risk Factor Score Per Nursin RFS Level Per Nursing on Admit: 4+=Very High Other: LOW [facility] 05/19/19 1787: History of Present Illness History of Present Illness History of Present Illness Consult requested by Dr. Jamil for anemia. Patient is a 79 year old male that was found to have hgb of 4.8. He was having some dizziness, and was direct admitted once his lab work revealed this. Patient states he didn't know he was that low. Denies any blood in the stools or abdominal pain. Patient denies any nausea or emesis. He is on Eliquis which is on hold. Patient last colonoscopy was greater than 10 years. He has a history of stroke causing left sided weakness. He has required 4 units of prbc currently. Has had slight weight loss, but was intentional. No other complaints. Allergies and Home Medications Allergies Coded Allergies: No Known Drug Allergies (Unverified , 03/27/11) Home Medications Amiodarone HCl 200 Mg Tablet, 200 MG PO DAILY, (Reported) Apixaban 5 Mg Tablet, 5 MG PO BID Prescribed by: GRISELDA SANTOS on 04/08/18 0851 Aspirin 81 Mg Tablet.dr, 81 MG PO DAILY, (Reported) Atorvastatin Calcium 80 Mg Tablet, 80 MG PO DAILY, (Reported) Carvedilol 6.25 Mg Tablet, 6.25 MG PO BID, (Reported) HOLD FOR SYSTOLIC BLOOD PRESSURE <100 OR HR <50 - CALL NURSE Cholecalciferol (Vitamin D3) 50 Mcg Capsule, 50 MCG PO DAILY, (Reported) Digoxin 125 Mcg Tablet, 125 MCG PO DAILY, (Reported) Enalapril Maleate 2.5 Mg Tablet, 2.5 MG PO DAILY, (Reported) Furosemide 40 Mg Tablet, 40 MG PO DAILY, (Reported) Glimepiride 4 Mg Tablet, 4 MG PO DAILY, (Reported) Methimazole 5 Mg Tablet, 5 MG PO DAILY, (Reported) Omeprazole 20 Mg Capsule.dr, 20 MG PO DAILY, (Reported) Propylene Glycol 10 Ml Drops, 1 DROP OU Q12H PRN for DRY EYES, (Reported) Spironolactone 25 Mg Tablet, 25 MG PO DAILY, (Reported) Patient Home Medication List Home Medication List Reviewed: Yes Past Qvvqeiq-Caorei-Ulstut Hx Reviewed Nursing Assessment Reviewed/Agree w Nursing PMH: Yes Family Medical History Significant Family History: Diabetes Review of Systems-General Constitutional: weakness, weight loss (Intentional ) EENTM: other (dizziness); No hearing loss, No ear pain Respiratory: No cough, No dyspnea on exertion Cardiovascular: No chest pain, No edema Gastrointestinal: No abdominal pain, No dysphagia, No hematemesis, No heartburn, No loss of appetite, No melena, No nausea, No vomiting Genitourinary: no symptoms reported; No decreased output, No discharge Musculoskeletal: No back pain, No joint pain; muscle weakness (Right arm and right side of face) Skin: No change in color, No change in hair/nails Psychiatric/Neurological: Denies Anxiety, Denies Depressed, Denies Emotional Problems Physical Exam-General Problems Physical Exam General Appearance: WD/WN, no apparent distress HEENT: PERRL/EOMI, other (No upper or lower teeth noted. Patien also has right side droop. ) Neck: non-tender, supple, normal inspection Respiratory: chest non-tender, no respiratory distress, no accessory muscle use Cardiovascular: regular rate, rhythm Gastrointestinal: non tender, soft, no organomegaly; No guarding, No rebound Rectal: deferred Back: normal inspection Extremities: normal range of motion, normal inspection, no pedal edema, no calf tenderness Neurologic/Psychiatric: alert, normal mood/affect, oriented x 3 Skin: normal color, warm/dry Lymphatic: no adenopathy Assessment/Plan Assessment/Plan Assessment/Plan symptomatic anemia-required 4 units prbc follow hgb and transfuse prn current long-term anticoagulation- eliquis on hold acute blood loss likely from gi bleed, we discussed doing egd/colonoscopy to further evaluate, inpatient vs outpatient npo at this time on protonix will follow Supervisory-Addendum Brief Verification & Attestation Participated in pt care: history, MDM, physical Personally performed: exam, history, MDM, supervision of care Care discussed with: Medical Student Procedures: n/a Results interpretation: Verified all documentation Verification and Attestation of Medical Student E/M Service A medical student performed and documented this service in my presence. I reviewed and verified all information documented by the medical student and made modifications to such information, when appropriate. I personally performed the physical exam and medical decision making. Garfield Jacques, May 19, 2019,18:44 [facility] May 19, 2019 17:54 GARFIELD JACQUES DO May 19, 2019 18:37
[2019-05-19] MEDS: METHIMAZOLE TABLET 5 MG TABLET PO SCH (19:48)
[2019-05-20 00:04] VITALS: BP 122/49
[2019-05-20 03:44] LABS: BASOPHILS % (AUTO) 0 % (0-10); EOSINOPHILS # (AUTO) 0.3 10^3/uL (0.0-0.3); EOSINOPHILS % (AUTO) 2 % (0-10); HEMATOCRIT 28 % (40-54); HEMOGLOBIN 8.7 G/DL (13.3-17.7); LYMPHOCYTES # (AUTO) 2.4 X 10^3 (1.0-4.0); LYMPHOCYTES % (AUTO) 16 % (12-44); MEAN CORPUSCULAR HEMOGLOBIN 21 PG (25-34); MEAN CORPUSCULAR HGB CONC 31 G/DL (32-36); MEAN CORPUSCULAR VOLUME 68 FL (80-99); MONOCYTES % (AUTO) 13 % (0-12); NEUTROPHILS # (AUTO) 10.9 X 10^3 (1.8-7.8); NEUTROPHILS % (AUTO) 70 % (42-75); PLATELET COUNT 441 10^3/uL (130-400); WHITE BLOOD COUNT 15.6 10^3/uL (4.3-11.0)
[2019-05-20 04:03] LABS: BUN/CREATININE RATIO 15; CALCIUM 8.3 MG/DL (8.5-10.1); CARBON DIOXIDE 22 MMOL/L (21-32); CHLORIDE 108 MMOL/L (98-107); CREATININE SERUM 0.97 MG/DL (0.60-1.30); GFR ESTIMATED > 60; MAGNESIUM 2.1 MG/DL (1.6-2.4); PHOSPHORUS 2.4 MG/DL (2.3-4.7); SODIUM 138 MMOL/L (135-145)
[2019-05-20 04:04] VITALS: BP 121/53
[2019-05-20] MEDS ORDERED: DEXTROSE 50% 50 ML (IMS) SYR ONE (04:27)
[2019-05-20 04:31] LABS: GLUCOSE 29 MG/DL (70-105)
[2019-05-20 04:42] LABS: EOSINOPHILS % (MANUAL) 1 %; LYMPHOCYTES % (MANUAL) 12 %; MONOCYTES % (MANUAL) 8 %; NEUTROPHILS % (MANUAL) 79 %
[2019-05-20 04:43] LABS: ACANTHOCYTES SLIGHT; ANISOCYTOSIS SLIGHT; BURR CELLS MODERATE; HYPOCHROMASIA SLIGHT; POIKILOCYTOSIS SLIGHT; POLYCHROMASIA SLIGHT
[2019-05-20] MEDS ORDERED: DEXTROSE 50% 50 ML (IMS) SYR IV ONE (04:45)
[2019-05-20] MEDS: LACTATED RINGERS 1,000 ML IV SCH ×3 (05:57→23:57)
--- NOTE | 2019-05-20 07:31 | Progress Note - Surgery ---
NORIS LOPEZ [facility] 05/20/19 0730: Subjective Date Seen by a Provider: May 20, 2019 Time Seen by a Provider: 07:00 Subjective/Events-last exam Patient is alert and oriented and in no acute distress. No family at bedside. Denies pain Sleeping well with no complaints, urinating without issue Has been NPO since yesterday Denies the following: SIB, Chest pain, abdominal pain, N/V, and chills. States he felt like he had a little fever last night. Review of Systems General: No Chills HEENT: No Visual Changes, No Eye Pain Pulmonary: No Dyspnea, No Cough Cardiovascular: No: Chest Pain, Palpitations Gastrointestinal: No: Nausea, Vomiting, Abdominal Pain Objective Exam Vital Signs Date Time Temp Pulse Resp B/P (MAP) Pulse Ox O2 Delivery O2 Flow Rate FiO2 05/20/19 04:04 60 121/53 (75) 92 Room Air 05/20/19 03:33 98 Room Air 05/20/19 03:33 36.0 05/20/19 01:00 62 05/20/19 00:04 61 122/49 (73) 96 Room Air 05/19/19 23:43 36.6 05/19/19 23:43 98 Room Air 05/19/19 20:26 97 Room Air 05/19/19 20:04 63 107/46 (66) 93 Room Air 05/19/19 20:00 36.8 05/19/19 20:00 98 Room Air 05/19/19 19:00 70 05/19/19 16:00 98 Room Air 05/19/19 16:00 36.8 67 18 111/45 97 Room Air 05/19/19 16:00 68 111/45 (67) 96 Room Air 05/19/19 15:30 36.8 05/19/19 13:10 35.8 62 18 112/44 98 Room Air 05/19/19 12:48 36.6 65 20 115/49 97 Room Air 05/19/19 12:18 59 05/19/19 12:00 80 103/68 (80) 98 Room Air 05/19/19 12:00 36.8 05/19/19 12:00 36.8 72 115/44 95 Room Air 05/19/19 12:00 98 Room Air 3/3/20 10:01 36.8 62 20 113/45 97 Room Air 05/19/19 09:35 36.8 67 20 113/64 97 Room Air 05/19/19 09:00 97 Room Air 05/19/19 08:00 97 Room Air 05/19/19 08:00 70 120/49 (72) 98 Room Air I & O 05/20/19 07:00 Intake Total 2100 ml Output Total 2750 ml Balance -650 ml Capillary Refill : Less Than 3 Seconds General Appearance: No Apparent Distress, WD/WN HEENT: PERRL/EOMI, Pharynx Normal Neck: Normal Inspection, Supple Respiratory: Chest Non Tender, No Accessory Muscle Use, No Respiratory Distress Cardiovascular: Regular Rate, Rhythm, No Edema, No Murmur Gastrointestinal: soft, no organomegaly; No distended, No guarding, No rebound; tenderness (Tenderness of the epigastric area BL) Extremity: Normal Inspection, Non Tender, No Calf Tenderness, No Pedal Edema Neurologic/Psychiatric: Alert, Oriented x3, Normal Mood/Affect Skin: Normal Color, Warm/Dry Lymphatic: No Adenopathy Results Lab Laboratory Tests 05/19/19 10:22: Glucometer 74 05/19/19 11:30: Glucometer 44*L 05/19/19 11:48: Lab Scanned Report Transfusion Reaction Form 05/19/19 11:56: Glucometer 48*L 05/19/19 12:21: Glucometer 61L 05/19/19 12:46: Glucometer 76 05/19/19 13:53: Glucometer 85 05/19/19 15:00: Glucometer 93 05/19/19 15:56: Glucometer 105 05/19/19 16:58: Glucometer 87, Hemoglobin 8.5#L, Hematocrit 27L 05/19/19 20:29: Glucometer 62L 05/20/19 03:04: Hemoglobin 8.7L, Hematocrit 28L, White Blood Count 15.6H, Red Blood Count 4.18L, Mean Corpuscular Volume 68L, Mean Corpuscular Hemoglobin 21L, Mean Corpuscular Hemoglobin Concent 31L, Red Cell Distribution Width , Platelet Count 441H, Mean Platelet Volume , Neutrophils (%) (Auto) 70, Lymphocytes (%) (Auto) 16, Monocytes (%) (Auto) 13H, Eosinophils (%) (Auto) 2, Basophils (%) (Auto) 0, Ne utrophils # (Auto) 10.9H, Lymphocytes # (Auto) 2.4, Monocytes # (Auto) 2.0H, Eosinophils # (Auto) 0.3, Basophils # (Auto) 0.0, Neutrophils % (Manual) 79, Lymphocytes % (Manual) 12, Monocytes % (Manual) 8, Eosinophils % (Manual) 1, Polychromasia SLIGHT, Hypochromasia SLIGHT, Poikilocytosis SLIGHT, Anisocytosis SLIGHT, [place] Cells MODERATE, Acanthocytes SLIGHT, Sodium Level 138, Potassium Level 4.0, Chloride Level 108H, Carbon Dioxide Level 22, Anion Gap 8, Blood Urea Nitrogen 15, Creatinine 0.97, Estimat Glomerular Filtration Rate > 60, BUN/Creatinine Ratio 15, Glucose Level 29*L, Calcium Level 8.3L, Phosphorus Level 2.4, Magnesium Level 2.1, Beta-Hydroxybutyrate (Chem panel) 0.14 05/20/19 04:34: Glucometer 38*L 05/20/19 04:42: Glucometer 209H 05/20/19 05:02: Glucometer 156H 05/20/19 05:05: 05/20/19 05:46: Glucometer 147H Assessment/Plan Assessment/Plan Assessment/Plan symptomatic anemia-required 4 units prbc follow hgb and transfuse prn 05/20/2019 current fdc anticoagulation- eliquis on hold acute blood loss likely from gi bleed, we discussed doing egd/colonoscopy to further evaluate, inpatient vs outpatient npo at this time, patient expressed some tenderness in the epigastric region on palpation. Consider Peptic Ulcer disease. Patient will start bowel prep regimen today. Hgb has stabilized and is 8.7 today. on protonix will follow Clinical Quality Measures DVT/VTE Risk/Contraindication: Risk Factor Score Per Nursin RFS Level Per Nursing on Admit: 4+=Very High Other: LOW HGB OF [place] LYN PINA DO 05/20/192114: Subjective Subjective/Events-last exam Hgb stable. Doing prep for colonoscopy. Denies any new complaints. Denies n/v fever sweats chills shortness of breath or chest pain. Objective Exam General Appearance: No Apparent Distress, WD/WN HEENT: PERRL/EOMI, Pharynx Normal Neck: Normal Inspection Respiratory: Chest Non Tender, No Accessory Muscle Use, No Respiratory Distress Cardiovascular: Regular Rate, Rhythm, No Edema Gastrointestinal: soft, no organomegaly; No guarding, No rebound; tenderness (Tenderness of the epigastric ) Extremity: Non Tender, No Calf Tenderness Neurologic/Psychiatric: Alert, Oriented x3, Normal Mood/Affect, Facial Droop (r ight) Skin: Normal Color, Warm/Dry Lymphatic: No Adenopathy Assessment/Plan Assessment/Plan Assessment/Plan symptomatic anemia -stable fdc anticoagulation on hold prep today for colonoscopy and egd. He understands risks and benefits and wishes to proceed EGD/COlonoscopy tomorrow. Supervisory-Addendum Brief Verification & Attestation Participated in pt care: history, MDM, physical Personally performed: exam, history, MDM, supervision of care Care discussed with: Medical Student Procedures: n/a Results interpretation: Verified all documentation Verification and Attestation of Medical Student E/M Service A medical student performed and documented this service in my presence. I reviewed and verified all information documented by the medical student and made modifications to such information, when appropriate. I personally performed the physical exam and medical decision making. Lyn Villalobos, May 20, 2019,21:15 NORIS LOPEZ [facility] May 20, 2019 07:30 LYN VILLALOBOS DO May 20, 2019 21:15
[2019-05-20] MEDS: AMIODARONE 200 MG (CORDARONE) TAB PO SCH (07:58)
[2019-05-20] MEDS: PANTOPRAZOLE 40 MG (PROTONIX) VIAL IV SCH ×2 (07:59→19:50)
[2019-05-20] MEDS: DIGOXIN 0.125 MG (LANOXIN) TAB PO SCH (07:59)
[2019-05-20 08:00] VITALS: BP 119/61
[2019-05-20] MEDS: DEXTROSE 10% IV SOLUTION 1,000 ML IV SCH (10:04)
--- NOTE | 2019-05-20 10:07 | Physical Therapy Daily Note ---
PT Daily Note-Current Subjective Patient is agreeable to therapy at this time. Pain Numeric Pain Scale: 0-No Pain Appearance Patient in bed with call light and bedside table within reach. Nursing present. Mental Status Patient Orientation: Person, Place, Time Attachments: IV Transfers SCALE: Activities may be completed with or without assistive devices. 1-Fzdofximoj-paenfqj completes the activity by him/herself with no assistance from a helper. 5-Set-up or Clean-up Assistance-helper sets up or cleans up; patient completes activity. Pateros assists only prior to or following the activity. 4-Supervision or Touching Assistance-helper provides verbal cues and/or touching/steadying and/or contact guard assistance as patient completes activity. Assistance may be provided throughout the activity or intermittently. 3-Partial/Moderate Assistance-helper does LESS THAN HALF the effort. Pateros lifts, holds or supports trunk or limbs, but provides less than half the effort. 2-Substantial/Maximal Assistance-helper does MORE THAN HALF the effort. Pateros lifts or holds trunk or limbs and provides more than half the effort. 0-Umslbkkmy-dqefkl does ALL the effort. Patient does none of the effort to com plete the activity. Or, the assistance of 2 or more helpers is required for the patient to complete the activity. If activity was not attempted, code reason: 7-Patient Refused. 9-Not Applicable-not attempted and the patient did not perform the activity before the current illness, exacerbation or injury. 10-Not Attempted due to Environmental Limitations-(lack of equipment, weather restraints, etc.). 88-Not Attempted due to Medical Conditions or Safety Concerns. Roll Left & Right (QC): 6 Sit to Lying (QC): 6 Lying to Sitting/Side of Bed(Q: 6 Sit to Stand (QC): 4 Weight Bearing Right Lower Extremity: Right Weight Bearing/Tolerated Left Lower Extremity: Left Weight Bearing/Tolerated Gait Training Does the Patient Walk?: Yes Distance: 140' Walk 10 feet (QC): 4 Walk 50 ft with 2 Turns(QC): 4 Gait Persons Needed: 1 Gait Assistive Device: None CGA for safety. Patient is stable and walks without AD. Wheelchair Training Does the Pt Use a Wheelchair?: No Treatments Ambulation, bed mobility, transfers. Assessment Current Status: Good Progress Patient is steady during ambulation without assistive device. Patient completes bed mobility IND with ease. PT Custodial Goals Custodial Goals PT Reserve Officer Goals Time Frame: May 26, 2019 Roll Left & Right (QC): 6 Sit to Lying (QC): 6 Lying-Sitting on Side/Bed(QC): 6 Sit to Stand (QC): 6 Chair/Sxd-dc-Nwtsy Xfer(QC): 6 Toilet Transfer (QC): 6 Does the Patient Walk: Yes Walk 10 feet (QC): 6 Walk 50ft with 2 Turns (QC): 6 Walk 150 ft (QC): 6 PT Plan Problem List Problem List: Activity Tolerance, Functional Strength, Safety, Balance, Gait, Transfer, Bed Mobility, ROM Treatment/Plan Treatment Plan: Continue Plan of Care Treatment Plan: Bed Mobility, Education, Functional Activity Kristine, Functional Strength, Gait, Safety, Therapeutic Exercise, Transfers Treatment Duration: May 26, 2019 Frequency: 5 times per week Estimated Hrs Per Day: .25 hour per day Patient and/or Family Agrees t: Yes Safety Risks/Education Patient Education: Gait Training, Transfer Techniques Teaching Recipient: Patient Teaching Methods: Demonstration, Discussion Response to Teaching: Reinforcement Needed Time/GCodes Time In: 945 Time Out: 1000 Total Billed Treatment Time: 15 Total Billed Treatment 1 visit GT 15 THA TRAMMELL CPTA May 20, 2019 10:07
[2019-05-20 12:00] VITALS: BP 113/50
[2019-05-20] MEDS ORDERED: GOLYTELY POWDER 4000 ML BTL PO ONE (12:00)
--- NOTE | 2019-05-20 12:15 | NUR ---
THIS NURSE NOTIFIED DR HOGUE PT BLOOD SUGAR WAS 202. ORDERS GIVEN TO DECREASE IV D10 TO 50 ML/HOUR.
--- NOTE | 2019-05-20 12:18 | Occupational Ther Daily Note ---
OT Current Status-Daily Note Subjective No pain reported. Appearance Pt. in bed. Agrees to work with OT. Mental Status/Objective Patient Orientation: Person, Place ADL-Treatment Therapy Code Descriptions/Definitions Functional [place] Measure: 0=Not Assessed/NA 4=Minimal Assistance 1=Total Assistance 5=Supervision or Setup 2=Maximal Assistance 6=Modified [place] 3=Moderate Assistance 7=Complete IndependenceSCALE: Activities may be completed with or without assistive devices. 7-Trqacwqtwn-zranjac completes the activity by him/herself with no assistance from a helper. 5-Set-up or Clean-up Assistance-helper sets up or cleans up; patient completes activity. Mico assists only prior to or following the activity. 4-Supervision or Touching Assistance-helper provides verbal cues and/or touching/steadying and/or contact guard assistance as patient completes activity. Assistance may be provided throughout the activity or intermittently. 3-Partial/Moderate Assistance-helper does LESS THAN HALF the effort. Mico lifts, holds or supports trunk or limbs, but provides less than half the effort. 2-Substantial/Maximal Assistance-helper does MORE THAN HALF the effort. Mico lifts or holds trunk or limbs and provides more than half the effort. 3-Zwbxzbrzl-nezubr does ALL the effort. Patient does none of the effort to complete the activity. Or, the assistance of 2 or more helpers is required for the patient to complete the activity. If activity was not attempted, code reason: 7-Patient Refused. 9-Not Applicable-not attempted and the patient did not perform the activity before the current illness, exacerbation or injury. 10-Not Attempted due to Environmental Limitations-(lack of equipment, weather restraints, etc.). 88-Not Attempted due to Medical Conditions or Safety Concerns. Oral Hygiene (QC): 7 (Pt. declines stating that he has no teeth.) Shower/Bathe Self (QC): 5 (Set up at bedside for sponge bath. Pt. able to reach all parts, and demonstrated good balance in stance while washing gerardo area.) Lower Body Dressing (QC): 6 (Pt. able to doff boxer shorts in stance with no difficulty.) On/Off Footwear: 6 Other Treatment Pt. demonstrates ability to transfer supine-sit with no difficulty. Completed sponge bath on side of bed. After bathing, transferred back into bed with no difficulty. No further OT needs warranted at this time. Education OT Patient Education: Correct positioning, Modified ADL techniques, Progress toward Goal/Update tx plan, Purpose of tx/functional activities, Reviewed precautions, Rehab process, Transfer techniques Teaching Recipient: Patient Teaching Methods: Demonstration, Discussion Response to Teaching: Verbalize Understanding, Return Demonstration OT Detention Goals Manager Government Goals Time Frame: May 26, 2019 Eating (QC): 6 Oral Hygiene (QC): 6 Toileting Hygiene (QC): 6 Shower/Bathe Self (QC): 5 Upper Body Dressing (QC): 6 Lower Body Dressing (QC): 6 On/Off Footwear (QC): 6 Additional Goals: 1-Demonstrate ADL Tasks, 2-Verbalize Understanding, 3- ImproveStrength/Kristine 1=Demonstrate adherence to instructed precautions during ADL tasks. 2=Patient will verbalize/demonstrate understanding of assistive devices/modifications for ADL. 3=Patient will improve strength/tolerance for activity to enable patient to perform ADL's. OT Education/Plan Problem List/Assessment Assessment: No Skilled OT Needs ID'd Discharge Recommendations Plan/Recommendations: Discharge/Goals Met Therapy Discharge Recommendati: Assisted Living Treatment Plan/Plan of Care Treatment,Training & Education: Yes Plan of Care: OTHER Treatment Duration: May 26, 2019 Frequency: 1 time per week Estimated Hrs Per Day: .25 hour per day Agreement: Yes Rehab Potential: Good Pt. met all goals at bedside. No further OT needs warranted at this time. Time/GCodes Start Time: 10:20 Stop Time: 10:37 Total Time Billed (hr/min): 17 Billed Treatment Time 1, ADL JESSY WERNER OT May 20, 2019 12:18
--- NOTE | 2019-05-20 13:50 | Progress Note - Hospitalist ---
Subjective HPI/CC On Admission Date Seen by Provider: May 20, 2019 Time Seen by Provider: 08:25 John Payne is a 79-year-old male with past medical history of hypertension, hyperlipidemia, atrial fibrillation, heart failure with reduced ejection fraction, who presented to Dr. Owen's office with weakness. Further lab evaluation revealed a that he had a hemoglobin of 4.8 and he was directly admitted to [facility]. He reports that he is been having lightheadedness and dizziness. He denies any chest pain or shortness of breath. He denies any hematochezia, melena, hematemesis, hematuria, or other visible blood loss. He reports that he has had a colonoscopy but is not sure when that was done. He lives at an assisted living facility. Subjective/Events-last exam He is feeling okay this morning. He denies any specific complaints or concerns. He denies any lightheadedness or dizziness. He denies any hematochezia or melena. He denies any fevers or chills. He denies any chest pain or shortness of breath. He denies any abdominal pain, nausea, or vomiting. Objective Exam Vital Signs Vital Signs Date Time Temp Pulse Resp B/P (MAP) Pulse Ox O2 Delivery O2 Flow Rate FiO2 05/20/19 12:42 60 05/20/19 12:00 97 Room Air 05/20/19 12:00 113/50 (71) 05/20/19 07:24 35.9 05/19/19 16:00 18 Capillary Refill : Less Than 3 Seconds General Appearance: No Apparent Distress, WD/WN Respiratory: Lungs Clear, Normal Breath Sounds, No Respiratory Distress Cardiovascular: Regular Rate, Rhythm, No Edema, No Murmur Gastrointestinal: Normal Bowel Sounds, Non Tender, Soft Extremity: Normal Inspection, Non Tender, No Pedal Edema Neurologic/Psychiatric: Alert, Motor Weakness (Right-sided), Other (Dysphasia) Skin: Normal Color, Warm/Dry Results/Procedures Lab Laboratory Tests 05/19/19 16:58 05/20/19 03:04 Patient resulted labs reviewed. Assessment/Plan Assessment and Plan Assess & Plan/Chief Complaint Symptomatic anemia Likely acute blood loss anemia Hemoglobin 8.7 Status post 4 units PRBC this hospitalization Surgery consulted, planning for endoscopic evaluation tomorrow Continue PPI Hypoglycemia Nondiabetic Blood sugar in the 20s this morning, confirmed with plasma testing Beta hydroxybutyrate low normal Awaiting results for proinsulin, insulin, and C-peptide Begin D10 Chronic atrial fibrillation Hold Eliquis Continue amiodarone and digoxin Heart failure with reduced ejection fraction Resume diuretics Hold beta blockers with low blood pressure Hypertension Hold antihypertensives in setting of hypotension DVT prophylaxis: SCDs, pharmacologic prophylaxis held due to possible GI bleeding Diagnosis/Problems Diagnosis/Problems (1) Symptomatic anemia Status: Acute (2) Non-diabetic hypoglycemia Status: Acute Clinical Quality Measures DVT/VTE Risk/Contraindication: Risk Factor Score Per Nursin RFS Level Per Nursing on Admit: 4+=Very High Other: LOW [facility] MARILY GALEANA MD May 20, 2019 13:50
[2019-05-20] MEDS ORDERED: FUROSEMIDE 40 MG (LASIX) TAB PO NR (14:00)
[2019-05-20 16:00] VITALS: BP 128/57
--- NOTE | 2019-05-20 17:00 | NUR ---
THIS NURSE NOTIFIED LAB STOOL WAS MIXED WITH URINE AND THIS NURSE WAS UNABLE TO COLLECT STOOL SAMPLE.
[2019-05-20] MEDS: METHIMAZOLE TABLET 5 MG TABLET PO SCH (19:49)
[2019-05-20 20:00] VITALS: BP 110/44
[2019-05-21] VITALS (9 sets, daily range): BP systolic 99–143; BP diastolic 47–65
[2019-05-21] MEDS: DEXTROSE 10% IV SOLUTION 1,000 ML IV SCH (02:30)
[2019-05-21 03:28] LABS: BASOPHILS % (AUTO) 0 % (0-10); EOSINOPHILS # (AUTO) 0.4 10^3/uL (0.0-0.3); EOSINOPHILS % (AUTO) 3 % (0-10); HEMATOCRIT 27 % (40-54); HEMOGLOBIN 8.3 G/DL (13.3-17.7); LYMPHOCYTES # (AUTO) 2.3 X 10^3 (1.0-4.0); LYMPHOCYTES % (AUTO) 18 % (12-44); MEAN CORPUSCULAR HEMOGLOBIN 21 PG (25-34); MEAN CORPUSCULAR HGB CONC 30 G/DL (32-36); MEAN CORPUSCULAR VOLUME 70 FL (80-99); MONOCYTES # (AUTO) 1.5 X 10^3 (0.0-1.0); MONOCYTES % (AUTO) 12 % (0-12); NEUTROPHILS # (AUTO) 8.8 X 10^3 (1.8-7.8); NEUTROPHILS % (AUTO) 67 % (42-75); PLATELET COUNT 316 10^3/uL (130-400); RED CELL DISTRIBUTION WIDTH 31.9 % (10.0-14.5); WHITE BLOOD COUNT 13.1 10^3/uL (4.3-11.0)
[2019-05-21 03:45] LABS: BUN/CREATININE RATIO 9; CARBON DIOXIDE 21 MMOL/L (21-32); CHLORIDE 108 MMOL/L (98-107); CREATININE SERUM 0.87 MG/DL (0.60-1.30); GFR ESTIMATED > 60; GLUCOSE 118 MG/DL (70-105); MAGNESIUM 1.8 MG/DL (1.6-2.4); PHOSPHORUS 2.6 MG/DL (2.3-4.7); SODIUM 138 MMOL/L (135-145)
[2019-05-21] MEDS: DIGOXIN 0.125 MG (LANOXIN) TAB PO SCH ×3 (09:00→15:28)
[2019-05-21] MEDS: FUROSEMIDE 40 MG (LASIX) TAB PO SCH ×3 (09:00→15:28)
[2019-05-21] MEDS: AMIODARONE 200 MG (CORDARONE) TAB PO SCH ×3 (09:00→15:28)
[2019-05-21] MEDS: PANTOPRAZOLE 40 MG (PROTONIX) VIAL IV SCH ×2 (10:26→21:56)
[2019-05-21] MEDS ORDERED: proPOfol 200 MG/20 ML (DIPRIVAN) VIAL IV ONE (11:22)
[2019-05-21] MEDS ORDERED: KETAMINE/NaCl 50 MG/5 ML SYRINGE (ED ONLY) ONE (11:23)
[2019-05-21] MEDS ORDERED: MIDAZOLAM 2 MG/2 ML (VERSED) VIAL ONE (11:23)
[2019-05-21] MEDS ORDERED: LACTATED RINGERS 1,000 ML IV ONE (11:33)
--- NOTE | 2019-05-21 11:36 | Progress Note-Pre Operative ---
Pre-Operative Progress Note H&P Reviewed The H&P was reviewed, patient examined and no changes noted. Date Seen by Provider: May 21, 2019 Time Seen by Provider: 11:36 Date H&P Reviewed: May 21, 2019 Time H&P Reviewed: 11:36 Pre-Operative Diagnosis: anemia LYN JACQUES DO May 21, 2019 11:36
--- NOTE | 2019-05-21 11:49 | Physical Therapy Daily Note ---
PT Daily Note-Current Subjective Patient is agreeable to therapy at this time. Appearance Patient in bed with call light and bedside table within reach. Mental Status Patient Orientation: Person, Place, Time, Situation Transfers SCALE: Activities may be completed with or without assistive devices. 1-Iqeotfpknj-wkiivjt completes the activity by him/herself with no assistance from a helper. 5-Set-up or Clean-up Assistance-helper sets up or cleans up; patient completes activity. Sayre assists only prior to or following the activity. 4-Supervision or Touching Assistance-helper provides verbal cues and/or touching/steadying and/or contact guard assistance as patient completes activity. Assistance may be provided throughout the activity or intermittently. 3-Partial/Moderate Assistance-helper does LESS THAN HALF the effort. Sayre lifts, holds or supports trunk or limbs, but provides less than half the effort. 2-Substantial/Maximal Assistance-helper does MORE THAN HALF the effort. Sayre lifts or holds trunk or limbs and provides more than half the effort. 5-Ihynnefhi-ubgzfq does ALL the effort. Patient does none of the effort to co mplete the activity. Or, the assistance of 2 or more helpers is required for the patient to complete the activity. If activity was not attempted, code reason: 7-Patient Refused. 9-Not Applicable-not attempted and the patient did not perform the activity before the current illness, exacerbation or injury. 10-Not Attempted due to Environmental Limitations-(lack of equipment, weather restraints, etc.). 88-Not Attempted due to Medical Conditions or Safety Concerns. Roll Left & Right (QC): 6 Sit to Lying (QC): 6 Lying to Sitting/Side of Bed(Q: 6 Sit to Stand (QC): 6 Chair/Lfc-ul-Nmzjl Xfer(QC): 6 Weight Bearing Right Lower Extremity: Right Weight Bearing/Tolerated Left Lower Extremity: Left Weight Bearing/Tolerated Gait Training Does the Patient Walk?: Yes Distance: 250' Walk 10 feet (QC): 6 Walk 50 ft with 2 Turns(QC): 6 Walk 150 ft (QC): 6 Gait Assistive Device: None Patient is steady during ambulation. Wheelchair Training Does the Pt Use a Wheelchair?: No Assessment Current Status: Excellent Progress Patient tolerates exercises well. Patient is at prior level of function with goals met and no longer in need of physical therapy. PT Advertising Assistant Manager Goals [facility] Goals PT Advertising Assistant Manager Goals Time Frame: May 26, 2019 Roll Left & Right (QC): 6 Sit to Lying (QC): 6 Lying-Sitting on Side/Bed(QC): 6 Sit to Stand (QC): 6 Chair/Gvs-lr-Cxbdb Xfer(QC): 6 Toilet Transfer (QC): 6 Does the Patient Walk: Yes Walk 10 feet (QC): 6 Walk 50ft with 2 Turns (QC): 6 Walk 150 ft (QC): 6 PT Plan Treatment/Plan Treatment Plan: Discontinue PT, goals met Treatment Plan: Bed Mobility, Education, Functional Activity Kristine, Functional Strength, Gait, Safety, Therapeutic Exercise, Transfers Treatment Duration: May 26, 2019 Frequency: 5 times per week Estimated Hrs Per Day: .25 hour per day Patient and/or Family Agrees t: Yes Time/GCodes Time In: 1045 Time Out: 1059 Total Billed Treatment Time: 14 Total Billed Treatment 1 visit GT 14 CRISTIAN SAUCEDA PT May 21, 2019 11:49
--- NOTE | 2019-05-21 13:07 | Anesthesia-General Post-Op ---
MAC Patient Condition Mental Status/LOC: Same as Preop Cardiovascular: Satisfactory Nausea/Vomiting: Absent Respiratory: Satisfactory Pain: Controlled Complications: Absent Post Op Complications Complications None Follow Up Care/Instructions Patient Instructions None needed. Anesthesiology Discharge Order Discharge Order Patient is doing well, no complaints, stable vital signs, no apparent adverse anesthesia problems. RENE CHINO DO May 21, 2019 13:07
[2019-05-21] MEDS ORDERED: DEXTROSE 50% 50 ML (IMS) SYR IV PRN (14:45)
--- NOTE | 2019-05-21 14:52 | NUR ---
CM/SS visited with the patient for discharge planning . Plan: The patient is planning to return home to the [facility]. The patient does have a DPOA. DPOA: is Casandra Payne who is the patients tecdep-fo-toe. The patient is okay with us calling her to inform of discharge. Possible discharge for tomorrow; however, will probably be Saturday. The patient is on a clear liquid diet and is complaining because he would really like to have a cup of coffee. No other needs at this time, will continue to follow.
--- NOTE | 2019-05-21 14:55 | Progress Note - Hospitalist ---
Subjective HPI/CC On Admission Date Seen by Provider: May 21, 2019 Time Seen by Provider: 10:00 John Payne is a 79-year-old male with past medical history of hypertension, hyperlipidemia, atrial fibrillation, heart failure with reduced ejection fraction, who presented to Dr. Owen's office with weakness. Further lab evaluation revealed a that he had a hemoglobin of 4.8 and he was directly admitted to [facility]. He reports that he is been having lightheadedness and dizziness. He denies any chest pain or shortness of breath. He denies any hematochezia, melena, hematemesis, hematuria, or other visible blood loss. He reports that he has had a colonoscopy but is not sure when that was done. He lives at an assisted living facility. Subjective/Events-last exam he denies any complaints or concerns this morning. He denies any fevers or chills. He denies any chest pain or shortness of breath. He denies any nausea or vomiting. He denies any hematochezia or melena. He denies any lightheadedn ess or dizziness. Objective Exam Vital Signs Vital Signs Date Time Temp Pulse Resp B/P (MAP) Pulse Ox O2 Delivery O2 Flow Rate FiO2 05/21/19 13:00 61 05/21/19 12:40 20 95 05/21/19 12:35 Room Air 05/21/19 12:30 6 05/21/19 08:00 121/47 (71) 05/21/19 03:02 36.2 Capillary Refill : Less Than 3 Seconds General Appearance: No Apparent Distress, WD/WN Respiratory: Lungs Clear, Normal Breath Sounds, No Respiratory Distress Cardiovascular: Regular Rate, Rhythm, No Edema, No Murmur Gastrointestinal: Normal Bowel Sounds, Non Tender, Soft Extremity: Normal Inspection, Non Tender, No Pedal Edema Neurologic/Psychiatric: Alert, Oriented x3, Normal Mood/Affect, Motor Weakness (right-sided), Other (dysphasia) Results/Procedures Lab Laboratory Tests 05/21/19 02:38 Patient resulted labs reviewed. Assessment/Plan Assessment and Plan Assess & Plan/Chief Complaint Symptomatic anemia Likely acute blood loss anemia Colonic ulceration Hemoglobin stable Status post 4 units PRBC this hospitalization Surgery consulted, performed endoscopies today colonoscopy revealed right-sided colon ulcer which was biopsied Hypoglycemia Nondiabetic plan to perform a 72 hour fast his blood sugar drops below 50, obtain plasma glucose, insulin, proinsulin, and C-peptide levels stat prior to treating hypoglycemia D50 ordered as needed after her labs drawn After labs drawn, resume general diet and D10 at 50 ml/hour Chronic atrial fibrillation Hold Eliquis Continue amiodarone and digoxin Heart failure with reduced ejection fraction continue diuretics Hold beta blockers with low blood pressure Hypertension Hold antihypertensives in setting of hypotension DVT prophylaxis: SCDs, pharmacologic prophylaxis held due to possible GI bleeding Diagnosis/Problems Diagnosis/Problems (1) Symptomatic anemia Status: Acute (2) Non-diabetic hypoglycemia Status: Acute Clinical Quality Measures DVT/VTE Risk/Contraindication: Risk Factor Score Per Nursin RFS Level Per Nursing on Admit: 4+=Very High Other: LOW HGB OF [place] MARILY GALEANA MD May 21, 2019 14:54
[2019-05-21] MEDS: METHIMAZOLE TABLET 5 MG TABLET PO SCH (21:48)
[2019-05-22 00:14] VITALS: BP 107/53
--- NOTE | 2019-05-22 00:23 | OPERATIVE REPORT ---
DATE OF SERVICE: 05/21/2019 PREOPERATIVE DIAGNOSIS: Symptomatic anemia. POSTOPERATIVE DIAGNOSES: Ulceration, right colon and colon polyps x3. PROCEDURES: EGD and colonoscopy with cold biopsies of right colon ulceration with Mahnaz inking just distal and hot biopsy polypectomy x3. SURGEON: Lyn Villalobos DO ANESTHESIA: Per DEVELOPMENT VICE PRESIDENT. ESTIMATED BLOOD LOSS: Minimal. COMPLICATIONS: None. INDICATIONS: The patient is a 79-year-old male with symptomatic anemia. His hemoglobin outpatient on date of admission was 4.8. He was also on blood thinner of Eliquis. The patient was recommended to have EGD and colonoscopy performed for further evaluation. The patient understands risks and benefits and wishes to proceed. Consent was signed in the chart. DESCRIPTION OF PROCEDURE: The patient was taken to the endoscopy suite and placed in the left lateral recumbent position. Timeout was performed. Scope was inserted in mouth, down the esophagus, stomach and into the duodenum. There are no polyps, masses or ulcerations within the duodenum. Scope was then slowly retracted back into the stomach where it was further insufflated. No polyps, masses or ulcerations in the stomach. Scope was retroflexed noting no other pathology. Scope was returned to its normal position, slowly withdrawn to the distal esophagus, which had normal appearance. No polyps, masses or ulcerations. Scope was then slowly retracted back until completely removed. Digital rectal exam was performed. There were no palpable polyps, masses or ulcerations. Scope was inserted in the rectum and advanced all the way to the cecum with minimal difficulty. Prep was adequate with irrigation and suction. There were no polyps, masses or ulcerations in the cecum. In the ascending colon, there was appearance of a possible ulceration with erythematous and slight bleeding from this area. It is on posterior fold. Cold biopsies were obtained from this area. Mahnaz ink was injected into the descending mucosa, 1 mL in two spots. The scope was then continuously retracted back. There were no other polyps, masses or ulcerations within the remainder of the ascending, transverse and descending colon. In the sigmoid colon, a small polyp was present, which hot biopsy polypectomy was performed. Scope was then continuously retracted back into the rectum where there were two other polyps, which hot biopsy polypectomy was performed on these 2 polyps. Scope was retroflexed noting no other pathology. Scope was returned to its normal position, slowly withdrawn until completely removed. The patient tolerated procedure well without any complications. He was taken to recovery room in stable condition. RECOMMENDATIONS: The patient will follow up on biopsies. If the right colon has truly an ulcer bleeding source could be from this. Await biopsy results. May need repeat colonoscopy to reevaluate this area. Further recommendations pending biopsy results. Job ID: [id number] DocumentID: [id number] Dictated Date: 05/21/2019 17:21:21 Blade Grinder Date: 05/22/2019 00:22:02 Dictated By: LYN VILLALOBOS DO
[2019-05-22 04:17] VITALS: BP 109/53
[2019-05-22 04:54] LABS: BASOPHILS % (AUTO) 0 % (0-10); EOSINOPHILS # (AUTO) 0.1 10^3/uL (0.0-0.3); EOSINOPHILS % (AUTO) 1 % (0-10); HEMATOCRIT 30 % (40-54); HEMOGLOBIN 9.1 G/DL (13.3-17.7); LYMPHOCYTES # (AUTO) 1.7 X 10^3 (1.0-4.0); LYMPHOCYTES % (AUTO) 8 % (12-44); MEAN CORPUSCULAR HEMOGLOBIN 22 PG (25-34); MEAN CORPUSCULAR HGB CONC 31 G/DL (32-36); MEAN CORPUSCULAR VOLUME 70 FL (80-99); MONOCYTES # (AUTO) 1.4 X 10^3 (0.0-1.0); MONOCYTES % (AUTO) 7 % (0-12); NEUTROPHILS # (AUTO) 18.6 X 10^3 (1.8-7.8); NEUTROPHILS % (AUTO) 85 % (42-75); PLATELET COUNT 363 10^3/uL (130-400); WHITE BLOOD COUNT 21.9 10^3/uL (4.3-11.0)
[2019-05-22 05:12] LABS: BUN/CREATININE RATIO 9; CALCIUM 8.2 MG/DL (8.5-10.1); CARBON DIOXIDE 24 MMOL/L (21-32); CHLORIDE 102 MMOL/L (98-107); CREATININE SERUM 0.91 MG/DL (0.60-1.30); GFR ESTIMATED > 60; GLUCOSE 115 MG/DL (70-105); MAGNESIUM 1.8 MG/DL (1.6-2.4); PHOSPHORUS 3.5 MG/DL (2.3-4.7); POTASSIUM 3.9 MMOL/L (3.6-5.0); SODIUM 135 MMOL/L (135-145)
[2019-05-22 05:23] LABS: ANISOCYTOSIS MODERATE; BAND NEUTROPHILS 2 %; HYPOCHROMASIA MODERATE; LYMPHOCYTES % (MANUAL) 8 %; MICROCYTOSIS SLIGHT; MONOCYTES % (MANUAL) 5 %; NEUTROPHILS % (MANUAL) 85 %; POIKILOCYTOSIS MODERATE
[2019-05-22 05:24] LABS: BURR CELLS SLIGHT; SPHEROCYTES SLIGHT; TEAR DROP CELLS SLIGHT
--- NOTE | 2019-05-22 07:50 | Progress Note - Surgery ---
KOSTA MCGOWAN MEDICAL STUDENT 05/22/19 0750: Subjective Date Seen by a Provider: May 22, 2019 Time Seen by a Provider: 07:20 Subjective/Events-last exam John is a 79 y/o male patient. Patient was sleeping when I went into room. Upon waking, patient is alert and oriented and in NAD. No family at bedside when I talked to him. Patient denies any pain and states he is feeling better than the previous day. Denies any pain. He is sleeping well and able to urinate without issues Pt is able to ambulate with walker use and nurse assistance Pt has been NPO, and states he is hungry. Denies the following: Chest pain, SOB, abdominal pain, N/V, and chills Review of Systems General: No Chills, No Night Sweats HEENT: No Head Aches Pulmonary: No Cough Cardiovascular: No: Chest Pain, Edema Gastrointestinal: No: Nausea, Diarrhea Genitourinary: No Dysuria Objective Exam Vital Signs Date Time Temp Pulse Resp B/P (MAP) Pulse Ox O2 Delivery O2 Flow Rate FiO2 05/22/19 04:17 37.2 66 18 109/53 (71) 93 Room Air 05/22/19 01:00 80 05/22/19 00:15 94 Room Air 05/22/19 00:14 37.6 80 20 107/53 (71) 94 Room Air 05/21/19 20:00 96 Room Air 05/21/19 20:00 96 Room Air 05/21/19 20:00 37.6 80 17 120/56 (77) 96 Room Air 05/21/19 19:00 80 05/21/19 16:00 97 Room Air 05/21/19 16:00 36.4 76 22 143/65 (91) 97 Room Air 05/21/19 13:00 61 05/21/19 12:50 97 Room Air 05/21/19 12:40 63 20 95 05/21/19 12:35 60 16 99 Room Air 05/21/19 12:30 66 20 100 OxyMask 6 05/21/19 12:28 59 20 100 OxyMask 6 05/21/19 12:00 36.5 05/21/19 08:59 97 Room Air 05/21/19 08:00 60 121/47 (71) 95 Room Air 05/21/19 08:00 36.5 3/5/20 08:00 97 Room Air I & O 05/22/19 06:59 Intake Total 1000 ml Output Total 2200 ml Balance -1200 ml Capillary Refill : Less Than 3 Seconds General Appearance: No Apparent Distress, WD/WN HEENT: PERRL/EOMI, Pharynx Normal Neck: Normal Inspection Respiratory: Lungs Clear, Normal Breath Sounds, No Respiratory Distress Cardiovascular: Regular Rate, Rhythm, No Edema, No Murmur Gastrointestinal: soft, no organomegaly; No guarding, No rebound; tenderness (Tenderness of the epigastric ) Extremity: Normal Inspection, Non Tender, No Pedal Edema Neurologic/Psychiatric: Alert, Oriented x3, Normal Mood/Affect, Motor Weakness (right-sided), Other (dysphasia) Skin: Normal Color, Warm/Dry Lymphatic: No Adenopathy Results Lab Laboratory Tests 05/21/19 07:48: Glucometer 76 05/21/19 14:42: 05/21/19 16:26: Glucometer 179H 05/21/19 18:06: Glucometer 169H 05/21/19 20:27: Glucometer 133H 05/21/19 21:57: Glucometer 133H 05/22/19 00:17: Glucometer 136H 05/22/19 01:57: Glucometer 129H 05/22/19 04:08: White Blood Count 21.9H, Red Blood Count 4.22L, Hemoglobin 9.1L, Hematocrit 30L, Mean Corpuscular Volume 70L, Mean Corpuscular Hemoglobin 22L, Mean Corpuscular Hemoglobin Concent 31L, Red Cell Distribution Width , Platelet Count 363, Mean Platelet Volume , Neutrophils (%) (Auto) 85H, Lymphocytes (%) (Auto) 8L, Monocytes (%) (Auto) 7, Eosinophils (%) (Auto) 1, Basophils (%) (Auto) 0, Neutrophils # (Auto) 18.6H, Lymphocytes # (Auto) 1.7, Monocytes # (Auto) 1.4H, Eosinophils # (Auto) 0.1, Basophils # (Auto) 0.0, Neutrophils % (Manual) 85, Lymphocytes % (Manual) 8, Monocytes % (Manual) 5, Band Neutrophils 2, Hypochromasia MODERATE, Poikilocytosis MODERATE, Anisocytosis MODERATE, Microcytosis SLIGHT, Macrocytosis SLIGHT, Spherocytes SLIGHT, Tear Drop Cells SLIGHT, Farzad Cells SLIGHT, Sodium Level 135, Potassium Level 3.9, Chloride Level 102, Carbon Dioxide Level 24, Anion Gap 9, Blood Urea Nitrogen 8, Creatinine 0.91, Estimat Glomerular Filtration Rate > 60, BUN/Creatinine Ratio 9, Glucose Level 115H, Calcium Level 8.2L, Phosphorus Level 3.5, Magnesium Level 1.8, Procalcitonin 1.00H 05/22/19 04:17: Glucometer 125H 05/22/19 06:17: Glucometer 113H Assessment/Plan Assessment/Plan Assessment/Plan symptomatic anemia -stable custodial anticoagulation on hold Post op; Day 1- EGD/Colonoscopy Await biopsy results. Further recommendations pending biopsy results Treat patient symptomatically Clinical Quality Measures DVT/VTE Risk/Contraindication: Risk Factor Score Per Nursin RFS Level Per Nursing on Admit: 4+=Very High Other: LOW HGB OF [place] LYN PINA DO 05/22/19 1435: Subjective Subjective/Events-last exam No pain or abdominal pain. NPO. Not having any fever. Hungry wanting something to eat. WBC increased to 21K Denies n/v fever sweats chills shortness of breath or chest pain. Objective Exam General Appearance: No Apparent Distress HEENT: PERRL/EOMI Respiratory: Lungs Clear, Normal Breath Sounds, No Respiratory Distress Cardiovascular: Regular Rate, Rhythm, No Edema Gastrointestinal: soft, no organomegaly; No distended, No guarding, No rebound Extremity: Normal Inspection, Non Tender Neurologic/Psychiatric: Alert, Oriented x3 Skin: Normal Color, Warm/Dry Lymphatic: No Adenopathy Assessment/Plan Assessment/Plan Assessment/Plan symptomatic anemia ulceration right colon awaiting biopsy results, likely source of drop in hgb, will need right colon resection likely possible pneumonia leukocytosis patient with right basilar patchy infiltrates Zosyn started today will follow. Supervisory-Addendum Brief Verification & Attestation Participated in pt care: history, MDM, physical Personally performed: exam, history, MDM, supervision of care Care discussed with: Medical Student Procedures: n/a Results interpretation: Verified all documentation Verification and Attestation of Medical Student E/M Service A medical student performed and documented this service in my presence. I reviewed and verified all information documented by the medical student and made modifications to such information, when appropriate. I personally performed the physical exam and medical decision making. Lyn Villalobos, May 22, 2019,14:35 KOSTA MCGOWAN MEDICAL STUDENT May 22, 2019 07:50 LYN VILLALOBOS DO May 22, 2019 14:35
[2019-05-22 08:00] VITALS: BP 98/50
--- NOTE | 2019-05-22 08:34 | Diagnostic Imaging Report ---
INDICATION: Leukocytosis. Time of exam: 8:06 AM Comparison is made with prior chest from 04/13/2015. Heart size is stable. There is a cardiac defibrillator in place. Minimal patchy infiltrate or atelectasis in the right base is noted. Otherwise, the lungs are clear. No effusion or pneumothorax is seen. IMPRESSION: Minimal patchy right basilar infiltrate or atelectasis. Dictated by: Dictated on workstation # [id number]
[2019-05-22] MEDS: PANTOPRAZOLE 40 MG (PROTONIX) VIAL IV SCH ×2 (08:36→22:21)
[2019-05-22] MEDS: FUROSEMIDE 40 MG (LASIX) TAB PO SCH (08:37)
[2019-05-22] MEDS: AMIODARONE 200 MG (CORDARONE) TAB PO SCH (08:37)
[2019-05-22] MEDS: DIGOXIN 0.125 MG (LANOXIN) TAB PO SCH (08:37)
[2019-05-22 10:27] LABS: BILIRUBIN,URINE NEGATIVE (NEGATIVE); CLARITY,URINE SL CLOUDY; COLOR,URINE YELLOW; GLUCOSE, URINE (UA) NEGATIVE (NEGATIVE); KETONES,URINE NEGATIVE (NEGATIVE); LEUKOCYTE ESTERASE ,URINE NEGATIVE (NEGATIVE); NITRITE,URINE NEGATIVE (NEGATIVE); PH,URINE 6.5 (5-9); PROTEIN,URINE NEGATIVE (NEGATIVE)
[2019-05-22 10:34] LABS: BACTERIA,URINE NEGATIVE /HPF
[2019-05-22 12:00] VITALS: BP 110/54
--- NOTE | 2019-05-22 12:53 | Progress Note - Hospitalist ---
Subjective HPI/CC On Admission Date Seen by Provider: May 22, 2019 Time Seen by Provider: 08:45 John Payne is a 79-year-old male with past medical history of hypertension, hyperlipidemia, atrial fibrillation, heart failure with reduced ejection fraction, who presented to Dr. Owen's office with weakness. Further lab evaluation revealed a that he had a hemoglobin of 4.8 and he was directly admitted to [facility]. He reports that he is been having lightheadedness and dizziness. He denies any chest pain or shortness of breath. He denies any hematochezia, melena, hematemesis, hematuria, or other visible blood loss. He reports that he has had a colonoscopy but is not sure when that was done. He lives at an assisted living facility. Subjective/Events-last exam he reports no new complaints or concerns. He denies any fevers or chills. He denies any shortness of breath or cough. He denies any dysuria. He denies any chest pain. He denies any abdominal pain, nausea, vomiting, or diarrhea. Objective Exam Vital Signs Vital Signs Date Time Temp Pulse Resp B/P (MAP) Pulse Ox O2 Delivery O2 Flow Rate FiO2 05/22/19 12:00 37.1 67 18 110/54 (72) 90 Room Air 05/21/19 12:30 6 Capillary Refill : Less Than 3 Seconds General Appearance: No Apparent Distress, WD/WN Respiratory: Lungs Clear, Normal Breath Sounds, No Respiratory Distress Cardiovascular: Regular Rate, Rhythm, No Edema, No Murmur Gastrointestinal: Normal Bowel Sounds, Non Tender, Soft Extremity: Normal Inspection, Non Tender, No Pedal Edema Neurologic/Psychiatric: Alert, Oriented x3, Normal Mood/Affect, Motor Weakness Results/Procedures Lab Laboratory Tests 05/22/19 04:08 Patient resulted labs reviewed. Imaging: Reviewed Imaging Report Assessment/Plan Assessment and Plan Assess & Plan/Chief Complaint Leukocytosis Possible pneumonia WBC increased to 21.9 today Remains afebrile UA normal Chest x-ray with possible right lower lobe infiltrate blood cultures drawn Procalcitonin elevated at 1 Begin Zosyn for healthcare associated pneumonia Hypoglycemia Nondiabetic Perform 72 hour fast If his blood sugar drops below 50, obtain plasma glucose, insulin, proinsulin, and C-peptide levels stat prior to treating hypoglycemia D50 ordered as needed after her labs drawn After labs drawn, resume general diet and D10 at 50 ml/hour Symptomatic anemia Acute blood loss anemia Colonic ulceration Hemoglobin stable Status post 4 units PRBC this hospitalization Surgery consulted, performed endoscopies today colonoscopy revealed right-sided colon ulcer which was biopsied Chronic atrial fibrillation Resume Eliquis Continue amiodarone and digoxin Heart failure with reduced ejection fraction continue diuretics Hold beta blockers with low blood pressure Hypertension Hold antihypertensives in setting of hypotension DVT prophylaxis: SCDs, pharmacologic prophylaxis held due to possible GI bleeding Diagnosis/Problems Diagnosis/Problems (1) Symptomatic anemia Status: Acute (2) Non-diabetic hypoglycemia Status: Acute (3) Leukocytosis Status: Acute (4) Pneumonia Status: Acute Qualifiers: Pneumonia type: due to unspecified organism Laterality: right Lung location: lower lobe of lung Qualified Codes: J18.1 - Lobar pneumonia, unspecified organism Clinical Quality Measures DVT/VTE Risk/Contraindication: Risk Factor Score Per Nursin RFS Level Per Nursing on Admit: 4+=Very High Other: LOW HGB OF [place] MARILY GALEANA MD May 22, 2019 12:44
[2019-05-22] MEDS ORDERED: PIPERACILLIN/TAZO 4.5 GM/NS 100 ML IV NR ×2 (13:00)
--- NOTE | 2019-05-22 13:45 | NUR ---
NAV CASTRO, ([phone]) THE DIRECTOR OF DIVINA LOPEZ CALLED. IF THE PATIENT IS DISCHARGED OR SOMETHING BAD HAPPENS OVER THE WEEKEND PLEASE CALL HER. SHE WILL BE THE ONE WHO COMES TO GRAPHICS EDITOR THE PATIENT OVER THE WEEKEND
--- NOTE | 2019-05-22 14:49 | NUR ---
CALLED DR JACQUES REGARDING THE CLEAR LIQUID DIET HE ORDERED. DR HOGUE IS DOING A 72 HOUR GLUCOSE TEST. THE PATIENT MUST REMAIN NPO AT THIS TIME
[2019-05-22 16:00] VITALS: BP 107/61
[2019-05-22] MEDS: PIPERACILLIN/TAZOBACTAM (BULK) 4.5 GM in NS (IVPB) 100 ML IV SCH (18:29)
[2019-05-22 20:00] VITALS: BP 125/62
[2019-05-22] MEDS: METHIMAZOLE TABLET 5 MG TABLET PO SCH (22:20)
[2019-05-23] VITALS: BP 113/62
[2019-05-23 04:00] VITALS: BP 124/51
[2019-05-23] MEDS: PIPERACILLIN/TAZOBACTAM (BULK) 4.5 GM in NS (IVPB) 100 ML IV SCH ×3 (04:00→18:24)
[2019-05-23 06:02] LABS: BASOPHILS % (AUTO) 0 % (0-10); EOSINOPHILS # (AUTO) 0.2 10^3/uL (0.0-0.3); EOSINOPHILS % (AUTO) 1 % (0-10); HEMATOCRIT 29 % (40-54); HEMOGLOBIN 8.7 G/DL (13.3-17.7); LYMPHOCYTES # (AUTO) 1.4 X 10^3 (1.0-4.0); LYMPHOCYTES % (AUTO) 9 % (12-44); MEAN CORPUSCULAR HEMOGLOBIN 21 PG (25-34); MEAN CORPUSCULAR HGB CONC 30 G/DL (32-36); MEAN CORPUSCULAR VOLUME 71 FL (80-99); MONOCYTES # (AUTO) 1.3 X 10^3 (0.0-1.0); MONOCYTES % (AUTO) 9 % (0-12); NEUTROPHILS # (AUTO) 12.5 X 10^3 (1.8-7.8); NEUTROPHILS % (AUTO) 81 % (42-75); PLATELET COUNT 330 10^3/uL (130-400); WHITE BLOOD COUNT 15.4 10^3/uL (4.3-11.0)
[2019-05-23 06:22] LABS: BUN/CREATININE RATIO 12; CALCIUM 8.4 MG/DL (8.5-10.1); CARBON DIOXIDE 23 MMOL/L (21-32); CHLORIDE 103 MMOL/L (98-107); CREATININE SERUM 1.03 MG/DL (0.60-1.30); GFR ESTIMATED > 60; GLUCOSE 94 MG/DL (70-105); MAGNESIUM 1.9 MG/DL (1.6-2.4); PHOSPHORUS 3.3 MG/DL (2.3-4.7); POTASSIUM 3.6 MMOL/L (3.6-5.0); SODIUM 137 MMOL/L (135-145)
[2019-05-23 07:41] VITALS: BP 101/56
--- OUTSIDE RECORDS SUMMARY | 2019-05-23 08:28 | XMS REPORT | Encounter Summary ---
Author Author [facility] Organization [facility] Address Unknown Phone Unavailable Care Team Providers Care Cephalometric Analyst Name Role Phone Celio Hernandez MD PCP Encounter Details Care Team Description Date Type Department Sanjay Raphael [facility] [address] [facility] [place] [address] [phone] 12/24/2018 Hospital Cardiovascular Medi cine Encounter Remote Device Check [phone] Social History Date Tobacco Use Types Packs/Day Years Used Current Every Day Smoker Cigars Smokeless Tobacco: Never Used Drinks/Week oz/Week Comments Alcohol Use No Sex Assigned at Date Recorded Not on file Industry Job Start Date Occupation Not on file Not on file Not on file Travel End Travel History Travel Start No recent travel history available. documented as of this encounter Functional Status Date [...] the patient have a cognitive impairment: No documented as of this encounter Medications at Time of Discharge Start Date End Date Medication Sig Dispensed Refills 08/07/2018 amiodarone (CORDARONE) Take one 90 tablet 3 200 mg tablet tablet by mouth twice daily. Take with food. apixaban (ELIQUIS) 5 mg Take 5 mg by 0 tablet mouth twice daily. 11/02/2015 aspirin EC 81 mg Take 1 Tab by 90 Tab 3 tabletIndications: mouth daily. Coronary artery disease Take with involving [place] coronary food. artery of [place] heart, angina presence unspecified, Ischemic cardiomyopathy, Chronic obstructive pulmonary disease, unspecified COPD type (HCC) atorvastatin (LIPITOR) 80 Take 80 mg by 0 mg tablet mouth daily. carvedilol (COREG) 6.25 Take 6.25 mg 0 mg tablet by mouth twice daily with meals. Take with food. Cholecalciferol (Vitamin Take 1 Cap by 0 D3) 2,000 unit cap mouth daily. digoxin (LANOXIN) 125 mcg Take 125 mcg 0 tablet by mouth daily. enalapril (VASOTEC) 2.5 Take 2.5 mg 0 mg tablet by mouth daily. fish oil /omega-3 fatty Take 1 0 acids (SEA-OMEGA) capsule by 340/1000 mg capsule mouth three times daily. 08/07/2018 furosemide (LASIX) 40 mg Take one 90 tablet 3 tablet tablet by mouth twice daily. glimepiride (AMARYL) 4 mg Take 4 mg by 0 tablet mouth daily with breakfast. methimazole (TAPAZOLE) 5 Take 5 mg by 0 mg tablet mouth daily. 11/02/2015 nitroglycerin (NITROSTAT) Place 1 Tab 25 Tab 3 0.4 mg tabletIndications: under tongue Coronary artery disease every 5 involving [place] coronary minutes as artery of [place] heart, needed for angina presence Chest Pain. unspecified, Chronic systolic heart failure (HCC), Ischemic cardiomyopathy, Chronic obstructive pulmonary disease, unspecified COPD type (HCC), Hyperlipidemia, unspecified hyperlipidemia type, Pulmonary hypertension (HCC) omeprazole DR(+) Take 20 mg by 0 (PRILOSEC) 40 mg capsule mouth daily. propylene glycol (SYSTANE Place 1 drop 0 BALANCE) 0.6 % drop into or around eye(s) every 12 hours as needed. 08/07/2018 spironolactone Take one 45 tablet 3 (ALDACTONE) 25 mg tablet tablet by mouth daily. Take with food. documented as of this encounter Plan of Treatment Not on filedocumented as of this encounter Procedures Comments Procedure Name Priority Date/Time Associated Diag nosis DEVICE EVALUATION - Routine 01/05/2019 Chronic sy stolic heart REMOTE ICD 1:01 PM CDT failure (HCC) documented in this encounter Results * DEVICE EVALUATION - REMOTE ICD (01/05/2019 1:01 PM CDT) Generator Model EVERA MRI XT DR SKYLAR OTHER OUTSID E # [id number] LAB Generator [id number] OTHER OUTSIDE Serial # LAB Generator 03/20/2016 OTHER OUTSIDE Implnat Date LAB MONSE/EOL Per web programmer OTHER OUTSIDE Indicator LAB Generator Medtronic OTHER OUTSIDE Planning Division Superintendent LAB Generator No OTHER OUTSIDE Investigational LAB Wireless Yes OTHER OUTSIDE Generator LAB Device Type DDD-ICD OTHER OUTSIDE LAB Device Carelink Express OTHER OUTSIDE [place] LAB Transmitter Compatible RV Lead Model # SPRINT QUATTRO SECURE S MRI OTHER OUT SIDE SURESCAN 6935M-62CM LAB RV Lead Serial [id number] OTHER OUTSIDE # LAB RV Lead Implant 03/20/2016 OTHER OUTSIDE Date LAB RV Lead Diaph. 10 OTHER OUTSIDE Stimulation LAB RV Lead No OTHER OUTSIDE Investigational LAB RV Lead active fixation OTHER OUTSIDE Fixation LAB RV Lead RV apex OTHER OUTSIDE Location LAB RV Lead Coil Single OTHER OUTSIDE LAB RV Lead Medtronic OTHER OUTSIDE Planning Division Superintendent LAB Atrial Lead CAPSUREFIX NOVUS MRI SURESCAN OTHER O UTSIDE Model # 5076-52CM LAB Atrial Lead [id number] OTHER OUTSIDE Serial # LAB Atrial Lead 03/20/2016 OTHER OUTSIDE Implant Date LAB Atrial Lead 10 OTHER OUTSIDE Diaph. LAB Stimulation Atrial Lead Medtronic OTHER OUTSIDE Planning Division Superintendent LAB Atrial Lead No OTHER OUTSIDE Investigational LAB Atrial Lead active fixation OTHER OUTSIDE Fixation LAB Atrial Lead right atrial appendage OTHER OUTSIDE Location LAB Atrial Lead Pin IS1 OTHER OUTSIDE Connector LAB Atrial Lead Bipolar OTHER OUTSIDE Polarity LAB Device Mode AAIR/DDDR OTHER OUTSIDE LAB Lower Rate 60 OTHER OUTSIDE Limit LAB Upper Rate 130 OTHER OUTSIDE Limit LAB Sensor Rate 130 OTHER OUTSIDE Limit LAB Pace AV Delay 180 OTHER OUTSIDE LAB Sense AV Delay 150 OTHER OUTSIDE LAB VT Detect Rate ATP TO SHOCK OTHER OUTSIDE Tx LAB FVT Detect Rate 200 OTHER OUTSIDE (bpm) LAB FVT Detect Rate ATP TO SHOCK OTHER OUTSIDE Tx LAB VF Detect Rate 250 OTHER OUTSIDE (bpm) LAB VF Detect Rate ATP TO SHOCK OTHER OUTSIDE Tx LAB Mode Switch 150 OTHER OUTSIDE (bpm) LAB High A Rate 150 OTHER OUTSIDE Detect LAB Mode Switch On OTHER OUTSIDE Status LAB VT Detect Rate 171 OTHER OUTSIDE (bpm) LAB Date of Last 12/24/18 OTHER OUTSIDE Remote Check LAB AT/AF Daily 6 OTHER OUTSIDE [place] Hours LAB Average Vent 100 OTHER OUTSIDE Rate during LAB AT/AF #BPM Average Vent 6 OTHER OUTSIDE Rate During LAB AT/AF #Hours Remote Yes OTHER OUTSIDE Monitoring? LAB Daily [place] On OTHER OUTSIDE Threshld Alert? LAB Average On OTHER OUTSIDE Venticular Rate LAB AT/AF On/Off VF On OTHER OUTSIDE Detection/Thera LAB py Off Device Sanjay Raphael M.D. OTHER OUTSIDE Implanted By LAB EP Device MAW OTHER OUTSIDE Followed by LAB Name Pacemaker No OTHER OUTSIDE Dependant LAB EP Device MAC OTHER OUTSIDE Followed By LAB Date of Last 08/07/!9 OTHER OUTSIDE Programming LAB HF Patient Yes OTHER OUTSIDE LAB Date of Last 08/07/18 OTHER OUTSIDE ICM Evaluation LAB Date of Last 08/07?!9 OTHER OUTSIDE Interrogation LAB Known Diagnosed Yes OTHER OUTSIDE VT VT LAB VT Monitor 150 OTHER OUTSIDE LAB Remote Check? Yes OTHER OUTSIDE LAB Specimen Narrative Performed At OTHER OUTSIDE LAB 12/24/18-03/25/19 Eliquis per med list [01/05/2019 1:02:36 PM - TEENA MILLER] Scheduled remote transmission received 12/24/18 and reviewed today for dual chamber ICD. Presenting EGM shows APVS 60 bpm. Battery longevity 7.9 yrs. Events noted since 09/24/18: Atrial: none. AT/AF burden: <0.1% Ventricular: 1 labeled NSVT on 9 lasting 1 second. EGM shows NSVT. V rate 222 bpm Thoracic impedance stable. Please see scanned data sheets for david soliz review. Results routed to Dr. Amaral for signatu re and review. Performing Organization Address City/State/Zipcode Ph one Number OTHER OUTSIDE LAB documented in this encounter Visit Diagnoses Diagnosis Chronic systolic heart failure (HCC) Chronic systolic heart failure documented in this encounter
--- OUTSIDE RECORDS SUMMARY | 2019-05-23 08:28 | XMS REPORT | Encounter Summary ---
Author Author [facility] Organization [facility] Address Unknown Phone Unavailable Care Team Providers Care Rip/Mould Operator Name Role Phone Celio Hernandez MD PCP Encounter Details Care Team Description Date Type Department Sanjay Raphael MD [address] [facility] [place] [address] [phone] 03/25/2019 Hospital Cardiovascular Medi cine Encounter Remote Device Check [phone] Social History Date Tobacco Use Types Packs/Day [...] daily. Coronary artery disease Take with involving [place] coronary food. artery of [place] heart, angina presence unspecified, Ischemic cardiomyopathy, Chronic [...] tongue Coronary artery disease every 5 involving [place] coronary minutes as artery of [place] heart, needed for angina presence Chest Pain. [...] Associated Diag nosis DEVICE EVALUATION - Routine 04/08/2019 Chronic sy stolic heart REMOTE ICD 12:51 PM MOLDER BENCH failure (HCC) documented in this encounter Results * DEVICE EVALUATION - REMOTE ICD (04/08/2019 12:51 PM MOLDER BENCH) Generator Model EVERA MRI XT DR SKYLAR OTHER OUTSID E # [id number] LAB Generator [id number] OTHER OUTSIDE Serial # LAB Generator 03/20/2016 OTHER OUTSIDE Implnat Date LAB MONSE/EOL Per statistical programmer OTHER OUTSIDE Indicator LAB Generator Medtronic OTHER OUTSIDE [place] LAB Wireless Yes OTHER OUTSIDE Generator LAB Device Type DDD-ICD OTHER OUTSIDE LAB Device Carelink Express OTHER OUTSIDE [place] LAB Transmitter Compatible RV Lead Model # SPRINT QUATTRO SECURE S MRI OTHER OUT SIDE SURESCAN 6935M-62CM LAB RV Lead Serial [id number] OTHER OUTSIDE # LAB RV Lead Implant 03/20/2016 OTHER OUTSIDE Date LAB RV Lead Diaph. 10 OTHER OUTSIDE Stimulation LAB RV Lead active fixation OTHER OUTSIDE Fixation LAB RV Lead RV apex OTHER OUTSIDE Location LAB RV Lead Coil Single OTHER OUTSIDE LAB RV Lead Medtronic OTHER OUTSIDE [place] LAB Atrial Lead CAPSUREFIX NOVUS MRI SURESCAN OTHER O UTSIDE Model # 5076-52CM LAB Atrial Lead [id number] OTHER OUTSIDE Serial # LAB Atrial Lead 03/20/2016 OTHER OUTSIDE Implant Date LAB Atrial Lead 10 OTHER OUTSIDE Diaph. LAB Stimulation Atrial Lead Medtronic OTHER OUTSIDE [place] LAB Atrial Lead active fixation OTHER OUTSIDE [...] OTHER OUTSIDE (bpm) LAB Date of Last 03/25/2019 OTHER OUTSIDE Remote Check LAB AT/AF Daily 6 OTHER OUTSIDE [place] Hours LAB Average Vent 100 OTHER OUTSIDE Rate during LAB AT/AF #BPM Average Vent 6 OTHER OUTSIDE Rate During LAB AT/AF #Hours Remote Yes OTHER OUTSIDE Monitoring? LAB Daily [place] On OTHER OUTSIDE Threshld Alert? LAB Average [...] LAB VT Monitor 150 OTHER OUTSIDE LAB EP SYSTEM MRI Yes OTHER OUTSIDE CONDITIONAL LAB Next Remote 06/24/2019 OTHER OUTSIDE Check Due LAB Remote Check? Yes OTHER OUTSIDE LAB Specimen Narrative Performed At OTHER OUTSIDE LAB Current Monitoring Period: 03/25/2019 - 06/24/2019 [04/08/2019 2:24:19 PM - PAN STEEN] Please see scanned data sheets for david her review. Scheduled Carelink transmission receive d for dual chamber ICD. Device function appears appropriate. Lead trends are within expected limits. Presenting EGM shows AP-VS 62 bpm. Battery longevity 7.4 years / 3.00V. Events noted since 12/24/2018: Atrial: None. Ventricular: 2 VT-NS last occurred on 03/23/2019, longest 2 seconds, fastest at 226 bpm, EGMs shows 9 and 11 beat runs of NSVT. RV Pacin.2%. Optivol fluid index and Thoracic impeda nce are within expected limits and do not suggest fluid accumulation. Next follow up is due ~ 09/2019. Next remote scheduled 06/24/2019. Results routed to Dr. Amaral for signatu re and review. Performing Organization Address City/State/Zipcode Ph one Number OTHER OUTSIDE LAB documented in this encounter Visit Diagnoses Diagnosis Chronic systolic heart failure (HCC) Chronic systolic heart failure documented in this encounter
--- OUTSIDE RECORDS SUMMARY | 2019-05-23 08:28 | XMS REPORT | Clinical Summary ---
Author Author [facility] Organization [facility] Address Unknown Phone Unavailable Care Team Providers Care Transit Planner Name Role Phone Celio Hernandez MD PCP Source Comments Some departments are not documenting in the electronic medical record. If you d o not see the information that you expected, contact Release of Information in [facility] Information Management department at [phone] for further assistan ce in locating additional records.[facility] Allergies No Known Allergies Medications End Date Status Medication Sig Dispensed Refills Start Date Active omeprazole DR(+) Take 20 mg by 0 [...] 6 Coronary artery disease every 5 involving [place] coronary minutes as artery of [place] heart, needed for angina presence Chest Pain. unspecified, Chronic systolic heart failure (HCC), Ischemic cardiomyopathy, Chronic obstructive pulmonary disease, unspecified COPD type (HCC), Hyperlipidemia, unspecified hyperlipidemia type, Pulmonary hypertension (HCC) Active aspirin EC 81 mg Take 1 Tab by 90 Tab 3 01 tabletIndications: mouth daily. 6 Coronary artery disease Take with involving [place] coronary food. artery of [place] heart, angina presence unspecified, Ischemic cardiomyopathy, Chronic obstructive pulmonary disease, unspecified COPD type (HCC) Active digoxin (LANOXIN) 125 mcg Take 125 mcg 0 tablet by mouth daily. Active apixaban (ELIQUIS) 5 mg Take 5 mg by 0 tablet mouth twice daily. Active furosemide (LASIX) 40 mg Take one 90 tablet 3 0 tablet tablet by 9 mouth twice daily. Additional information Patient taking differently: 40 mg Oral DAILY, Reported on 09/25/2018 3:43 PM Active spironolactone Take one 45 tablet 3 (ALDACTONE) 25 mg tablet tablet by 9 mouth daily. Take with food. Active amiodarone (CORDARONE) Take one 90 tablet 3 200 mg tablet tablet by 9 mouth twice daily. Take with food. Additional information Patient taking differently: 200 mg Oral DAILY, Take with food., Reported on 09/25/2018 3:43 PM Active glimepiride (AMARYL) 4 mg Take 4 mg by 0 tablet mouth daily with breakfast. Active atorvastatin (LIPITOR) 80 Take 80 mg by 0 mg tablet mouth daily. Active carvedilol (COREG) 6.25 Take 6.25 mg 0 mg tablet by mouth twice daily with meals. Take with food. Active fish oil /omega-3 fatty Take 1 0 acids (SEA-OMEGA) capsule by 340/1000 mg capsule mouth three times daily. Active propylene glycol (SYSTANE Place 1 drop 0 BALANCE) 0.6 % drop into or around eye(s) every 12 hours as needed. Active Problems Problem Noted Date Pre-procedure lab exam 06/21/2017 VF (ventricular fibrillation) 05/31/2017 ICD (implantable cardioverter-defibrillator), dual, i n situ 01/22/2017 Hyperthyroidism 11/02/2015 Overview: Treated with Methimazole. NSVT (nonsustained ventricular tachycardia) 11/02/19 16 Type II diabetes mellitus 05/06/2015 Ischemic cardiomyopathy 05/06/2015 CAD (coronary artery disease), [place] c oronary artery Overview: 04/13/15 - cardiac cath: EF 30% with in ferior hypokinesis, 100% mRCA, 40-50% mLAD 04/14/15 - 24hour viability study: decre ased uptake in the inferior wall with retained viability 05/06/15: QASIM x 4 to RCA - continued ASA lifelong & Brilinta 90 mg BID >/= 1 year w/o interruption to prevent stent thrombosis and possibl e myocardial infarction. 8/16/16: Drug-eluting stent PCI to PLV by Dr. Amaral History of atrial fibrillation Chronic systolic heart failure Overview: 10/01/14 - Echo with Doppler: EF 50%, m ildly dilated left atrium, mild MR/TR, estimated PAP 35 mm Hg COPD (chronic obstructive pulmonary dis ease) Hyperlipidemia Pulmonary hypertension Carotid artery stenosis Overview: 05/25/2011 - left CEA with patch angiopla sty Essential hypertension Encounters Care Team Description Date Type Specialty Sanjay Raphael MD 03/25/2019 Hospital Cardiology Encounter from Last 3 Months Family History Medical History Relation Name Comments Diabetes Brother Relation Name Status Comments Brother Father Mother Social History Date Tobacco Use Types Packs/Day Years Used Current Every Day Smoker Cigars Smokeless Tobacco: Never Used Drinks/Week oz/Week Comments Alcohol Use No Sex Assigned at Date Recorded Not on file Industry Job Start Date Occupation Not on file Not on file Not on file Travel End Travel History Travel Start No recent travel history available. Last Filed Vital Signs Reading Time Taken Comments Vital Sign 124/75 09/30/2018 10:46 AM CDT Blood Pressure 69 09/30/2018 10:46 AM CDT Pulse 37 C (98.6 F) 06/27/2017 3:46 PM CDT Temperature - - Respiratory Rate 96% 09/25/2018 3:18 PM CDT Oxygen Saturation - - Inhaled Oxygen Concentration 83.5 kg (184 lb) 09/30/2018 10:46 AM CDT Weight 170.2 cm (5' 7") 09/30/2018 10:46 AM CDT Height 28.82 09/30/2018 10:46 AM CDT Body Mass Index Plan of Treatment Health Maintenance Due Date Last Done Comments MEDICARE ANNUAL WELLNESS 1942 VISIT DTAP/TDAP VACCINES (1 - 1953 Tdap) DILATED EYE EXAM 02/06/1960 FOOT EXAM 02/06/1960 HBA1C 02/06/1960 PHYSICAL (COMPREHENSIVE) 02/06/1960 EXAM SHINGLES RECOMBINANT 02/06/1992 VACCINE (1 of 2) PNEUMONIA (PCV13/PPSV23) 2007 VACCINES (1 of 2 - PCV13) INFLUENZA VACCINE 10/16/2018 Implants Device Identifier Shelf Expiration Date Model / Serial / L ot Implanted Type Area Manufactur er Icd ICD Procedures Comments Procedure Name Priority Date/Time Associated Diag nosis DEVICE EVALUATION - Routine 04/08/2019 Chronic sy stolic heart REMOTE ICD 12:51 PM MOTEL KEEPER failure (HCC) from Last 3 Months Results * DEVICE EVALUATION - REMOTE ICD (04/08/2019 12:51 PM MOTEL KEEPER) [facility] Signature Generator Model EVERA MRI XT DR CHENG OTHER OUTSID E # [id number] LAB Generator [id number] OTHER OUTSIDE Serial # LAB Generator 03/20/2016 OTHER OUTSIDE Implnat Date LAB MONSE/EOL Per visual basic programmer OTHER OUTSIDE Indicator LAB Generator Medtronic OTHER OUTSIDE Systems Analysis Manager LAB Wireless Yes OTHER OUTSIDE Generator LAB Device Type DDD-ICD OTHER OUTSIDE LAB Device Carelink Express OTHER OUTSIDE [place] LAB Transmitter Compatible RV Lead Model # SPRINT QUATTRO SECURE S MRI OTHER OUT SIDE SURESCAN 6935M-62CM LAB RV Lead Serial [id number] OTHER OUTSIDE # LAB RV Lead Implant 03/20/2016 OTHER OUTSIDE Date LAB RV Lead Diaph. 10 OTHER OUTSIDE Stimulation LAB RV Lead active fixation OTHER OUTSIDE Fixation LAB RV Lead RV apex OTHER OUTSIDE Location LAB RV Lead Coil Single OTHER OUTSIDE LAB RV Lead Medtronic OTHER OUTSIDE Systems Analysis Manager LAB Atrial Lead CAPSUREFIX NOVUS MRI SURESCAN OTHER O UTSIDE Model # 5076-52CM LAB Atrial Lead [id number] OTHER OUTSIDE Serial # LAB Atrial Lead 03/20/2016 OTHER OUTSIDE Implant Date LAB Atrial Lead 10 OTHER OUTSIDE Diaph. LAB Stimulation Atrial Lead Medtronic OTHER OUTSIDE Systems Analysis Manager LAB Atrial Lead active fixation OTHER OUTSIDE [...] Check LAB AT/AF Daily 6 OTHER OUTSIDE [place] Hours LAB Average Vent 100 OTHER OUTSIDE Rate during LAB AT/AF #BPM Average Vent 6 OTHER OUTSIDE Rate During LAB AT/AF #Hours Remote Yes OTHER OUTSIDE Monitoring? LAB Daily [place] On OTHER OUTSIDE Threshld Alert? LAB Average [...] City/State/Zipcode Ph one Number OTHER OUTSIDE LAB from Last 3 Months Insurance Type Payer Benefit Subscriber ID Effective Phone Address Plan / Dates Group Medicare MEDICARE MEDICARE xxxxxxxxxxx 2007- PART A AND Present B AETNA MEDICAID AETNA xxxxxxxxxxx 2018-P [facility] [place] [address] Advance Directives Patient Binder Operator Explanation Type Date Recorded Advance Directive/DPOA Date Inactivated Comments Code Status Date Activated 06/27/2017 8:04 PM Full Code 06/27/2017 10:16 AM Provider has discussed Code Status No, discussion no t w/Patient or Family? necessary based on Dx 03/21/2016 12:06 PM Full Code 03/20/2016 5:51 PM Provider has discussed Code Status No, more discussi on w/Patient or Family? needed 11/02/2015 1:14 PM Full Code 11/01/2015 5:56 PM Provider has discussed Code Status No, more discussi on w/Patient or Family? needed 05/09/2015 8:17 AM Full Code 05/06/2015 5:05 PM Provider has discussed Code Status No, more discussi on w/Patient or Family? needed
--- OUTSIDE RECORDS SUMMARY | 2019-05-23 08:29 | XMS REPORT | Continuity of Care Document ---
Author Organization Unknown Address Unknown Phone Unavailable Allergies Active Description Code Type Severity Reaction Onset Reported/Identified Relationship to Patient Clinical Status Yes No Known Drug Allergies [id number] Drug Allergy Unknown N/A 05/21/2019 Medications There is no data. Problems Date Dx Coded Attending Type Code Diagnosis Diagnosed By 02/15/1244 THOMAS DURAN MD Ot Z48.81 2 ENCNTR FOR SURGICAL AFTCR FOLLOWING SURG 02/15/1244 THOMAS DURAN MD Ot Z95.5 PRESENCE OF CORONARY ANGIOPLASTY IMPLANT 04/05/2014 MARVIN SCHAEFFER Ot 397.0 04/05/2014 MARVIN SCHAEFFER K Ot 414.00 04/05/2014 CHINEDU SCHAEFFERTH K Ot 416.8 04/05/2014 CHINEDU SCHAEFFERTH K Ot 424.0 04/05/2014 CHINEDU SCHAEFFERTH K Ot 428.0 08/27/2014 MARVIN SCHAEFFER K Ot 397.0 08/27/2014 CHINEDU SCHAEFFERTH K Ot 414.00 08/27/2014 CHINEDU SCHAEFFERTH K Ot 416.8 08/27/2014 CHINEDU SCHAEFFERTH K Ot 424.0 08/27/2014 CHINEDU SCHAEFFERTH K Ot 428.0 09/02/2014 DARIELA HELLER DIGITAL ACCOUNT COORDINATOR Ot 288.60 09/02/2014 DARIELA HELLER DIGITAL ACCOUNT COORDINATOR Ot 790.99 09/02/2014 MARVIN SCHAEFFER K Ot 397.0 09/02/2014 CHINEDU SCHAEFFERTH K Ot 414.00 09/02/2014 CHINEDU SCHAEFFERTH K Ot 416.8 09/02/2014 MARVIN SCHAEFFER K Ot 424.0 09/02/2014 CHINEDU SCHAEFFERTH K Ot 428.0 09/02/2014 HELLERDARIELA DIGITAL ACCOUNT COORDINATOR Ot 288.60 09/02/2014 DARIELA HELLER DIGITAL ACCOUNT COORDINATOR Ot 790.99 09/20/2014 DARIELA HELLER DIGITAL ACCOUNT COORDINATOR Ot 288.60 09/20/2014 DARIELA HELLER DIGITAL ACCOUNT COORDINATOR Ot 790.99 09/30/2014 ARRONDARIELA DIGITAL ACCOUNT COORDINATOR Ot 288.60 09/30/2014 ARRONDARIELA DIGITAL ACCOUNT COORDINATOR Ot 790.99 10/01/2014 NUNEZ-TEMI PA, MARVIN K Ot 397.0 10/01/2014 NUNEZ-TEMI PA, MARVIN K Ot 414.00 10/01/2014 NUNEZ-TEMI PA, MARVIN K Ot 416.8 10/01/2014 NUNEZ-TEMI PA, MARVIN K Ot 424.0 10/01/2014 NUNEZ-TEMI PA, MARVIN K Ot 428.0 10/01/2014 ARRONDARIELA DIGITAL ACCOUNT COORDINATOR Ot 288.60 10/01/2014 ARRONDARIELA DIGITAL ACCOUNT COORDINATOR Ot 790.99 10/25/2014 NUNEZ-TEMI PA, MARVIN K [...] NUNEZ-TEMI PA, MARVIN K Ot 428.0 04/06/2015 ARRONDARIELA DIGITAL ACCOUNT COORDINATOR Ot 288.60 04/06/2015 ARRON DARIELA M DIGITAL ACCOUNT COORDINATOR Ot 790.99 04/06/2015 MARVIN SCHAEFFER Ot 414.9 04/06/2015 MARVIN SCHAEFFER Ot 427.31 04/06/2015 MARVIN SCHAEFFER Ot 428.0 04/06/2015 MARVIN SCHAEFFER Ot 433.10 04/13/2015 TAYLOR BROWN MD Ot E11. 9 TYPE 2 DIABETES MELLITUS WITHOUT COMPLIC 04/13/2015 TAYLOR BROWN MD Ot E78. 5 HYPERLIPIDEMIA, UNSPECIFIED 04/13/2015 TAYLOR BROWN MD Ot F17.200 NICOTINE DEPENDENCE, UNSPECIFIED, UNCOMP 04/13/2015 TAYLOR BROWN MD Ot I10 ESSENTIAL (PRIMARY) HYPERTENSION 04/13/2015 TAYLOR BROWN MD, Ot I25. 10 ATHSCL HEART DISEASE OF [place] CORONARY 04/13/2015 TAYLOR BROWN MD, Ot I25. 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 2 VENTRICULAR TACHYCARDIA 04/13/2015 TAYLOR BROWN MD Ot I48. 0 PAROXYSMAL ATRIAL FIBRILLATION 04/13/2015 TAYLOR BROWN MD Ot I50. 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 9 CHRONIC OBSTRUCTIVE PULMONARY DISEASE, U 04/13/2015 TAYLOR BROWN MD Ot R94. 39 ABNORMAL RESULT OF OTHER CARDIOVASCULAR 04/13/2015 TAYLOR BROWN MD, Ot Z79.899 OTHER MACHINE UMBRELLA TIPPER (CURRENT) DRUG THERAPY 05/03/2015 MARVIN SCHAEFFER Ot [...] 05/13/2015 Ot I25.10 05/13/2015 Ot I48.0 07/08/2015 THOMAS DURAN MD Ot Z48.81 2 ENCNTR FOR SURGICAL AFTCR FOLLOWING SURG 07/08/2015 THOMAS DURAN MD Ot Z95.5 PRESENCE OF CORONARY ANGIOPLASTY IMPLANT 07/15/2015 THOMAS DURAN MD Ot Z48.81 2 ENCNTR FOR SURGICAL AFTCR FOLLOWING SURG 07/15/2015 THOMAS DURAN MD Ot Z95.5 PRESENCE OF CORONARY ANGIOPLASTY IMPLANT 08/21/2015 THOMAS DURAN MD Ot Z48.81 2 ENCNTR FOR SURGICAL AFTCR FOLLOWING SURG 08/21/2015 THOMAS DURAN MD Ot Z95.5 PRESENCE OF CORONARY ANGIOPLASTY IMPLANT 08/22/2015 THOMAS DURAN MD Ot Z48.81 2 ENCNTR FOR SURGICAL AFTCR FOLLOWING SURG 08/22/2015 THOMAS DURAN MD Ot Z95.5 PRESENCE OF CORONARY ANGIOPLASTY IMPLANT 08/22/2015 THOMAS DURAN MD Ot Z48.81 2 ENCNTR FOR SURGICAL AFTCR FOLLOWING SURG 08/22/2015 THOMAS DURAN MD Ot Z95.5 PRESENCE OF CORONARY ANGIOPLASTY IMPLANT 08/22/2015 THOMAS DURAN MD Ot Z48.81 2 ENCNTR FOR SURGICAL AFTCR FOLLOWING SURG 08/22/2015 THOMAS DURAN MD Ot Z95.5 PRESENCE OF CORONARY ANGIOPLASTY IMPLANT 08/23/2015 THOMAS DURAN MD Ot Z48.81 2 ENCNTR FOR SURGICAL AFTCR FOLLOWING SURG 08/23/2015 THOMAS DURAN MD Ot Z95.5 PRESENCE OF CORONARY ANGIOPLASTY IMPLANT 09/02/2015 THOMAS DURAN MD Ot Z48.81 2 ENCNTR FOR SURGICAL AFTCR FOLLOWING SURG 09/02/2015 THOMAS DURAN MD Ot Z95.5 PRESENCE OF CORONARY ANGIOPLASTY IMPLANT 10/17/2015 Ot 433.10 CAR OTID ARTERY OCCLUSION W O CEREBRAL IN 10/17/2015 Ot V58.69 OT MED,LT,CURRENT USE 10/17/2015 Ot V72.63 PRE -PROCEDURAL LABORATORY EXAMINATION 10/17/2015 Ot V72.83 EXA M PRE- OPERATIVE NEC 10/17/2015 Ot V74.8 SCRE EN-BACTERIAL DIS NEC 05/17/2016 MARVIN SCHAEFFER Ot 397.0 TRICUSPID VALVE DISEASE 05/17/2016 MRAVIN SCHAEFFER Ot 414.00 CORON ATHEROSCLER NOS TYPE VESSEL, NATIV 05/17/2016 MARVIN SCHAEFFER Ot 416.8 CHR PULMON HEART DIS NEC 05/17/2016 MARVIN SCHAEFFER Ot 424.0 MITRAL VALVE DISORDER 05/17/2016 MARVIN SCHAEFFER Ot 428.0 CONGESTIVE HEART FAILURE NOS 05/17/2016 DARIELA HELLER DIGITAL ACCOUNT COORDINATOR Ot 288.60 LEUKOCYTOSIS, UNSPECIFIED 05/17/2016 DARIELA HELLER DIGITAL ACCOUNT COORDINATOR Ot 790.99 BLOOD EXAM - OTH NONSPECIFIC FINDINGS 05/17/2016 MARVIN SCHAEFFER Ot 414.9 CHR ISCHEMIC HRT DIS NOS 05/17/2016 MARVIN SCHAEFFER Ot 427.31 ATRIAL FIBRILLATION 05/17/2016 MARVIN SCHAEFFER Ot 428.0 CONGESTIVE HEART FAILURE NOS 05/17/2016 MARVIN SCHAEFFER Ot 433.10 CAROTID ARTERY OCCLUSION W O CEREBRAL IN 05/17/2016 MARVIN SCHAEFFER Ot I25.10 ATHSCL HEART DISEASE OF [place] CORONARY 05/17/2016 MARVIN SCHAEFFER Ot I27.0 PRIMARY PULMONARY HYPERTENSION 05/17/2016 MARVIN SCHAEFFER Ot I48.0 PAROXYSMAL ATRIAL FIBRILLATION 05/17/2016 MARVIN SCHAEFFER Ot I65.23 OCCLUSION AND STENOSIS OF BILATERAL [place] 05/17/2016 Ot E11.9 TYPE 2 DIABETES MELLITUS WITHOUT COMPLIC 05/17/2016 Ot I10 ESSENT IAL (PRIMARY) HYPERTENSION 05/17/2016 Ot I25.10 ATH SCL HEART DISEASE OF [place] CORONARY 05/17/2016 Ot I48.0 PARO XYSMAL ATRIAL FIBRILLATION 05/20/2016 KEVIN SAENZ, TAYLOR Xiao Ot C43. 9 MALIGNANT MELANOMA OF SKIN, UNSPECIFIED 05/20/2016 TAYLOR BROWN MD Ot I25. 10 ATHSCL HEART DISEASE OF [place] CORONARY 05/20/2016 TAYLOR BROWN MD Ot I48. 0 PAROXYSMAL ATRIAL FIBRILLATION 05/20/2016 TAYLOR BROWN MD Ot I50. 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 05/20/2016 TAYLOR BROWN MD Ot I65. 23 OCCLUSION AND STENOSIS OF BILATERAL [place] 05/20/2016 TAYLOR BROWN MD Ot J44. 9 CHRONIC OBSTRUCTIVE PULMONARY DISEASE, U 05/23/2016 TAYLOR BROWN MD Ot C43. 9 MALIGNANT MELANOMA OF SKIN, UNSPECIFIED 05/23/2016 TAYLOR BROWN MD Ot I25. 10 ATHSCL HEART DISEASE OF [place] CORONARY 05/23/2016 TAYLOR BROWN MD Ot I48. 0 PAROXYSMAL ATRIAL FIBRILLATION 05/23/2016 TAYLOR BROWN MD Ot I50. 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 05/23/2016 TAYLOR BROWN MD Ot I65. 23 OCCLUSION AND STENOSIS OF BILATERAL [place] 05/23/2016 TAYLOR BROWN MD Ot J44. 9 CHRONIC OBSTRUCTIVE PULMONARY DISEASE, U 06/07/2016 TAYLOR BROWN MD Ot C43. 9 MALIGNANT MELANOMA OF SKIN, UNSPECIFIED 06/07/2016 TAYLOR BROWN MD Ot I25. 10 ATHSCL HEART DISEASE OF [place] CORONARY 06/07/2016 TAYLOR BROWN MD Ot I48. 0 PAROXYSMAL ATRIAL FIBRILLATION 06/07/2016 TAYLOR BROWN MD Ot I50. 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 06/07/2016 TAYLOR BROWN MD Ot I65. 23 OCCLUSION AND STENOSIS OF BILATERAL [place] 06/07/2016 TAYLOR BROWN MD Ot J44. 9 CHRONIC OBSTRUCTIVE PULMONARY DISEASE, U 06/14/2016 TAYLOR BROWN MD Ot C43. 9 MALIGNANT MELANOMA OF SKIN, UNSPECIFIED 06/14/2016 TAYLOR BROWN MD Ot I25. 10 ATHSCL HEART DISEASE OF [place] CORONARY 06/14/2016 TAYLOR BROWN MD Ot I48. 0 PAROXYSMAL ATRIAL FIBRILLATION 06/14/2016 TAYLOR BROWN MD Ot I50. 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 06/14/2016 TAYLOR BROWN MD Ot I65. 23 OCCLUSION AND STENOSIS OF BILATERAL [place] 06/14/2016 KEVIN SAENZ, TAYLOR Xiao Ot J44. 9 CHRONIC OBSTRUCTIVE PULMONARY DISEASE, U 10/16/2016 Ot 433.10 CAR OTID ARTERY OCCLUSION W O CEREBRAL IN 10/16/2016 Ot V58.69 OT MED,LT,CURRENT USE 10/16/2016 Ot V72.63 PRE -PROCEDURAL LABORATORY EXAMINATION 10/16/2016 Ot V72.83 EXA M PRE- OPERATIVE NEC 10/16/2016 Ot V74.8 SCRE EN-BACTERIAL DIS NEC 05/23/2017 INGE SILVESTRE DO Ot [...] Ot 424.0 MITRAL VALVE DISORDER 03/27/2018 MARVIN SCHAEFFER Ot 428.0 CONGESTIVE HEART FAILURE NOS 03/27/2018 DARIELA HELLER Ot 288.60 LEUKOCYTOSIS, UNSPECIFIED 03/27/2018 DARIELA HELLER Ot 790.99 BLOOD EXAM - [facility] NONSPECIFIC FINDINGS 03/27/2018 MARVIN SCHAEFFER Ot 414.9 CHR ISCHEMIC HRT DIS NOS 03/27/2018 MARVIN SCHAEFFER Ot 427.31 ATRIAL FIBRILLATION 03/27/2018 MARVIN SCHAEFFER Ot 428.0 CONGESTIVE HEART FAILURE NOS 03/27/2018 MARVIN SCHAEFFER Ot 433.10 CAROTID ARTERY OCCLUSION W O CEREBRAL IN 03/27/2018 MARVIN SCHAEFFER Ot I25.10 ATHSCL HEART DISEASE OF [place] CORONARY 03/27/2018 MARVIN SCHAEFFER Ot I27.0 PRIMARY PULMONARY HYPERTENSION 03/27/2018 MARVIN SCHAEFFER Ot I48.0 PAROXYSMAL ATRIAL FIBRILLATION 03/27/2018 MARVIN SCHAEFFER Ot I65.23 OCCLUSION AND STENOSIS OF BILATERAL [place] 03/27/2018 Ot E11.9 TYPE 2 DIABETES MELLITUS WITHOUT COMPLIC 03/27/2018 Ot I10 ESSENT IAL (PRIMARY) HYPERTENSION 03/27/2018 Ot I25.10 ATH SCL HEART DISEASE OF [place] CORONARY 03/27/2018 Ot I48.0 PARO XYSMAL ATRIAL FIBRILLATION 03/27/2018 TAYLOR BROWN MD Ot C43. 9 MALIGNANT MELANOMA OF SKIN, UNSPECIFIED 03/27/2018 TAYLOR BROWN MD Ot I25. 10 ATHSCL HEART DISEASE OF [place] CORONARY 03/27/2018 TAYLOR BROWN MD Ot I48. 0 PAROXYSMAL ATRIAL FIBRILLATION 03/27/2018 TAYLOR BROWN MD Ot I50. 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 03/27/2018 TAYLOR BROWN MD Ot I65. 23 OCCLUSION AND STENOSIS OF BILATERAL [place] 03/27/2018 TAYLOR BROWN MD Ot J44. 9 CHRONIC OBSTRUCTIVE PULMONARY DISEASE, U 03/27/2018 INGE SILVESTRE DO Ot S82.431A DISPLACED OBLIQUE FRACTURE OF SHAFT OF R 03/27/2018 INGE SILVESTRE DO, Ot S93.431A SPRAIN OF TIBIOFIBULAR LIGAMENT OF RIGHT 03/27/2018 INGE SILVESTRE DO Ot R06.00 DYSPNEA, UNSPECIFIED 03/27/2018 MARVIN SCHAEFFER Ot 397.0 TRICUSPID VALVE DISEASE 03/27/2018 MARVIN SCHAEFFER Ot 414.00 CORON ATHEROSCLER NOS TYPE VESSEL, NATIV 03/27/2018 SOL LOMAS MARVIN Sarabia Ot 416.8 CHR PULMON HEART DIS NEC 03/27/2018 SOL LOMAS MARVIN Cornell Ot 424.0 MITRAL VALVE DISORDER 03/27/2018 SOL LOMAS MARVIN Cornell Ot 428.0 CONGESTIVE HEART FAILURE NOS 03/27/2018 DARIELA HELLER DIGITAL ACCOUNT COORDINATOR Ot 288.60 LEUKOCYTOSIS, UNSPECIFIED 03/27/2018 DARIELA HELLER DIGITAL ACCOUNT COORDINATOR Ot 790.99 BLOOD EXAM - OTH NONSPECIFIC FINDINGS 03/27/2018 SOL LOMAS MARVIN Cornell Ot 414.9 CHR ISCHEMIC HRT DIS NOS 03/27/2018 SOL LOMAS MARVIN Cornell Ot 427.31 ATRIAL FIBRILLATION 03/27/2018 SOL LOMAS MARVIN Cornell Ot 428.0 CONGESTIVE HEART FAILURE NOS 03/27/2018 SOL LOMAS MARVIN Cornell Ot 433.10 CAROTID ARTERY OCCLUSION W O CEREBRAL IN 03/27/2018 SOL LOMAS MARVIN Cornell Ot I25.10 ATHSCL HEART DISEASE OF [place] CORONARY 03/27/2018 SOL LOMAS MARVIN [place] Ot I27.0 PRIMARY PULMONARY HYPERTENSION 03/27/2018 SOL LOMAS MARVIN Cornell Ot I48.0 PAROXYSMAL ATRIAL FIBRILLATION 03/27/2018 SOL LOMAS MARVIN Cornell Ot I65.23 OCCLUSION AND STENOSIS OF BILATERAL [place] 03/27/2018 Ot E11.9 TYPE 2 DIABETES MELLITUS WITHOUT COMPLIC 03/27/2018 Ot I10 ESSENT IAL (PRIMARY) HYPERTENSION 03/27/2018 Ot I25.10 ATH SCL HEART DISEASE OF [place] CORONARY 03/27/2018 Ot I48.0 PARO XYSMAL ATRIAL FIBRILLATION 03/27/2018 TAYLOR BROWN MD Ot C43. 9 MALIGNANT MELANOMA OF SKIN, UNSPECIFIED 03/27/2018 TAYLOR BROWN MD Ot I25. 10 ATHSCL HEART DISEASE OF [place] CORONARY 03/27/2018 TAYLOR BROWN MD Ot I48. 0 PAROXYSMAL ATRIAL FIBRILLATION 03/27/2018 TAYLOR BROWN MD Ot I50. 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 03/27/2018 TAYLOR BROWN MD Ot I65. 23 OCCLUSION AND STENOSIS OF BILATERAL [place] 03/27/2018 KEVIN SAENZ, TAYLOR Xiao Ot J44. 9 CHRONIC OBSTRUCTIVE PULMONARY DISEASE, U 03/27/2018 INGE SILVESTRE DO Ot S82.431A DISPLACED OBLIQUE FRACTURE OF SHAFT OF R 03/27/2018 INGE SILVESTRE DO, Ot S93.431A SPRAIN OF TIBIOFIBULAR LIGAMENT OF RIGHT 03/27/2018 INGE SILVESTRE DO Ot R06.00 DYSPNEA, UNSPECIFIED 03/28/2018 GRISELDA SANTOS DO Ot E11.9 TYPE 2 DIABETES MELLITUS WITHOUT COMPLIC 03/28/2018 GRISELDA SANTOS DO Ot E78.5 HYPERLIPIDEMIA, UNSPECIFIED 03/28/2018 GRISELDA SANTOS DO Ot F17.29 0 NICOTINE DEPENDENCE, OTHER TOBACCO PRODU 03/28/2018 GRISELDA SANTOS DO Ot G81.91 HEMIPLEGIA, UNSPECIFIED AFFECTING RIGHT 03/28/2018 SOWMYA SANTOS DOI Ot I11.0 HYPERTENSIVE HEART DISEASE WITH HEART FA 03/28/2018 GRISELDA SANTOS DO Ot I13.0 HYP HRT CHR KDNY DIS W HRT FAIL AND ST 03/28/2018 GRISELDA SANTOS DO Ot I25.10 ATHSCL HEART DISEASE OF [place] CORONARY 03/28/2018 GRISELDA SANTOS DO Ot I25.5 ISCHEMIC CARDIOMYOPATHY 03/28/2018 GRISELDA SANTOS DO Ot I48.0 PAROXYSMAL ATRIAL FIBRILLATION 03/28/2018 SOWMYA SANTOS DOI Ot I50.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 03/28/2018 GRISELDA SANTOS DO Ot I50.9 HEART FAILURE, UNSPECIFIED 03/28/2018 GRISELDA SANTOS DO Ot 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 03/28/2018 SOWMYA SANTOS DOI Ot I65.23 OCCLUSION AND STENOSIS OF BILATERAL [place] 03/28/2018 GRISELDA SANTOS DO Ot J44.9 CHRONIC OBSTRUCTIVE PULMONARY DISEASE, U 03/28/2018 GRISELDA SANTOS DO Ot N18.9 CHRONIC KIDNEY DISEASE, UNSPECIFIED 03/28/2018 GRISELDA SANTOS DO Ot R29.71 6 NIHSS SCORE 16 03/28/2018 GRISELDA SANTOS DO Ot R29.81 0 FACIAL WEAKNESS 03/28/2018 GRISELDA SANTOS DO Ot R47.02 DYSPHASIA 03/28/2018 GRISELDA SANTOS DO Ot Z79.82 MACHINE UMBRELLA TIPPER (CURRENT) USE OF ASPIRIN 03/28/2018 GRISELDA SANTOS DO Ot Z95.5 PRESENCE OF CORONARY ANGIOPLASTY IMPLANT 03/28/2018 GRISELDA SANTOS DO Ot Z95.81 0 PRESENCE OF AUTOMATIC (IMPLANTABLE) CARD 04/04/2018 TAYLOR BROWN MD Ot 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 0 HYPERTENSIVE HEART DISEASE WITH HEART FA 04/04/2018 TAYLOR BROWN MD Ot I42. 9 CARDIOMYOPATHY, UNSPECIFIED 04/04/2018 TAYLOR BROWN MD Ot I47. 1 SUPRAVENTRICULAR TACHYCARDIA 04/04/2018 TAYLOR BROWN MD Ot I50. 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 04/08/2018 GRISELDA SANTOS DO Ot E11.59 TYPE 2 DIABETES MELLITUS WITH OTH CIRCUL 04/08/2018 GRISELDA SANTOS DO Ot E78.2 MIXED HYPERLIPIDEMIA 04/08/2018 GRISELDA SANTOS DO Ot F17.21 0 NICOTINE DEPENDENCE, CIGARETTES, UNCOMPL 04/08/2018 GRISELDA SANTOS DO Ot F43.21 ADJUSTMENT DISORDER WITH DEPRESSED MOOD 04/08/2018 GRISELDA SANTOS DO Ot I13.0 HYP HRT CHR KDNY DIS W HRT FAIL AND ST 04/08/2018 GRISELDA SANTOS DO Ot I25.10 ATHSCL HEART DISEASE OF [place] CORONARY 04/08/2018 GRISELDA SANTOS DO Ot I25.82 CHRONIC TOTAL OCCLUSION OF CORONARY JO[place] 04/08/2018 GRISELDA SANTOS DO Ot I42.9 CARDIOMYOPATHY, UNSPECIFIED 04/08/2018 GRISELDA SANTOS DO Ot I48.0 PAROXYSMAL ATRIAL FIBRILLATION 04/08/2018 GRISELDA SANTOS DO Ot I50.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 04/08/2018 GRISELDA SANTOS DO Ot 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 04/08/2018 GRISELDA SANTOS DO Ot I69.35 1 HEMIPLGA FOLLOWING CEREBRAL INFRC AFF RI 04/08/2018 GRISELDA SANTOS DO Ot I69.39 1 DYSPHAGIA FOLLOWING CEREBRAL INFARCTION 04/08/2018 GRISELDA SANTOS DO Ot J44.9 CHRONIC OBSTRUCTIVE PULMONARY DISEASE, U 04/08/2018 GRISELDA SANTOS DO Ot K59.01 SLOW TRANSIT CONSTIPATION 04/08/2018 GRISELDA SANTOS DO Ot M19.90 UNSPECIFIED OSTEOARTHRITIS, UNSPECIFIED 04/08/2018 GRISELDA SANTOS DO Ot N18.9 CHRONIC KIDNEY DISEASE, UNSPECIFIED 04/08/2018 GRISELDA SANTOS DO Ot R06.2 WHEEZING 04/08/2018 GRISELDA SANTOS DO Ot R13.12 DYSPHAGIA, OROPHARYNGEAL PHASE 04/08/2018 GRISELDA SANTOS DO Ot Z79.84 MACHINE UMBRELLA TIPPER (CURRENT) USE OF ORAL HYPOGLYC 04/08/2018 GRISELDA SANTOS DO Ot Z95.5 PRESENCE OF CORONARY ANGIOPLASTY IMPLANT 04/08/2018 GRISELDA SANTOS DO Ot Z95.81 0 PRESENCE OF AUTOMATIC (IMPLANTABLE) CARD 04/22/2018 TAYLOR BROWN MD Ot 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 0 HYPERTENSIVE HEART DISEASE WITH HEART FA 04/22/2018 TAYLOR BROWN MD Ot I42. 9 CARDIOMYOPATHY, UNSPECIFIED 04/22/2018 TAYLOR BROWN MD Ot I47. 1 SUPRAVENTRICULAR TACHYCARDIA 04/22/2018 TAYLOR BROWN MD Ot I50. 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 06/26/2018 MARVIN SCHAEFFER Ot 397.0 TRICUSPID VALVE DISEASE 06/26/2018 MARVIN SCHAEFFER Ot 414.00 CORON ATHEROSCLER NOS TYPE VESSEL, NATIV 06/26/2018 MARVIN SCHAEFFER Ot 416.8 CHR PULMON HEART DIS NEC 06/26/2018 MARVIN SCHAEFFER Ot 424.0 MITRAL VALVE DISORDER 06/26/2018 MARVIN SCHAEFFER Ot 428.0 CONGESTIVE HEART FAILURE NOS 06/26/2018 DARIELA HELLER Ot 288.60 LEUKOCYTOSIS, UNSPECIFIED 06/26/2018 DARIELA HELLER Ot 790.99 BLOOD EXAM - OT NONSPECIFIC FINDINGS 06/26/2018 MARVIN SCHAEFFER Ot 414.9 CHR ISCHEMIC HRT DIS NOS 06/26/2018 MARVIN SCHAEFFER Ot 427.31 ATRIAL FIBRILLATION 06/26/2018 MARVIN SCHAEFFER Ot 428.0 CONGESTIVE HEART FAILURE NOS 06/26/2018 MARVIN SCHAEFFER Ot 433.10 CAROTID ARTERY OCCLUSION W O CEREBRAL IN 06/26/2018 MARVIN SCHAEFFER Ot I25.10 ATHSCL HEART DISEASE OF [place] CORONARY 06/26/2018 MARVIN SCHAEFFER Ot I27.0 PRIMARY PULMONARY HYPERTENSION 06/26/2018 MARVIN SCHAEFFER Ot I48.0 PAROXYSMAL ATRIAL FIBRILLATION 06/26/2018 MARVIN SCHAEFFER Ot I65.23 OCCLUSION AND STENOSIS OF BILATERAL [place] 06/26/2018 Ot E11.9 TYPE 2 DIABETES MELLITUS WITHOUT COMPLIC 06/26/2018 Ot I10 ESSENT IAL (PRIMARY) HYPERTENSION 06/26/2018 Ot I25.10 ATH SCL HEART DISEASE OF [place] CORONARY 06/26/2018 Ot I48.0 PARO XYSMAL ATRIAL FIBRILLATION 06/26/2018 TAYLOR BROWN MD Ot C43. 9 MALIGNANT MELANOMA OF SKIN, UNSPECIFIED 06/26/2018 TAYLOR BROWN MD, Ot I25. 10 ATHSCL HEART DISEASE OF [place] CORONARY 06/26/2018 TAYLOR BROWN MD, Ot I48. 0 PAROXYSMAL ATRIAL FIBRILLATION 06/26/2018 TAYLOR BROWN MD, Ot I50. 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 06/26/2018 TAYLOR BROWN MD, Ot I65. 23 OCCLUSION AND STENOSIS OF BILATERAL [place] 06/26/2018 TAYLOR BROWN MD, Ot J44. 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 0 HYPERTENSIVE HEART DISEASE WITH HEART FA 06/26/2018 TAYLOR BROWN MD, Ot I42. 9 CARDIOMYOPATHY, UNSPECIFIED 06/26/2018 TAYLOR BROWN MD, Ot I47. 1 SUPRAVENTRICULAR TACHYCARDIA 06/26/2018 KEVIN MD, BASHAR J Ot I50. 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 06/30/2018 SOL LOMAS MARVIN K Ot I65.01 OCCLUSION AND STENOSIS OF RIGHT [place]TE[place]RA 06/30/2018 SOL LOMAS MARVIN K Ot I65.23 OCCLUSION AND STENOSIS OF BILATERAL [place] 06/30/2018 SOL LOMAS MARVIN K Ot 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, NONRUPTURED 06/30/2018 SOL LOMAS MARVIN K Ot Z85.820 PERSONAL HISTORY OF MALIGNANT MELANOMA O 06/30/2018 SOL LOMAS MARVIN K Ot Z98.890 OTHER SPECIFIED POSTPROCEDURAL STATES 07/03/2018 SOL LOMAS MARVIN K Ot E04.1 NONTOXIC SINGLE THYROID NODULE 07/03/2018 SOL LOMAS MARVIN K Ot I25.10 ATHSCL HEART DISEASE OF [place] CORONARY 07/03/2018 SOL LOMAS MARVIN K Ot I48.0 PAROXYSMAL ATRIAL FIBRILLATION 07/03/2018 SOL LOMAS MARVIN K Ot I50.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 07/03/2018 SOL LOMAS MARVIN K Ot 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 07/03/2018 SOL LOMAS MARVIN K Ot I65.01 OCCLUSION AND STENOSIS OF RIGHT [place] 07/03/2018 SOL LOMAS MARVIN K Ot I65.23 OCCLUSION AND STENOSIS OF BILATERAL [place] 07/03/2018 SOL LOMAS MARVIN K Ot 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, NONRUPTURED 07/03/2018 SOL LOMAS MARVIN K Ot Z85.820 PERSONAL HISTORY OF MALIGNANT MELANOMA O 07/03/2018 SOL LOMAS MARVIN [place] Ot Z98.890 OTHER SPECIFIED POSTPROCEDURAL STATES 07/17/2018 SOL LOMAS MARVIN K Ot E04.1 NONTOXIC SINGLE THYROID NODULE 07/17/2018 SOL LOMAS MARVIN K Ot I25.10 ATHSCL HEART DISEASE OF [place] CORONARY 07/17/2018 MARVIN SCHAEFFER Ot I48.0 PAROXYSMAL ATRIAL FIBRILLATION 07/17/2018 SOL LOMAS MARVIN K Ot I50.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 07/17/2018 SOL LOMAS MARVIN K Ot 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 07/17/2018 SOL LOMAS MARVIN K Ot I65.01 OCCLUSION AND STENOSIS OF RIGHT [place] 07/17/2018 SOL LOMAS MARVIN K Ot I65.23 OCCLUSION AND STENOSIS OF BILATERAL [place] 07/17/2018 SOL LOMAS MARVIN K Ot 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, NONRUPTURED 07/17/2018 SOL LOMAS MARVIN [place] Ot Z85.820 PERSONAL HISTORY OF MALIGNANT MELANOMA O 07/17/2018 SOL LOMAS AMRVIN [place] Ot Z98.890 OTHER SPECIFIED POSTPROCEDURAL STATES 08/05/2018 INGE SILVESTRE DO Ot E04.2 NONTOXIC MULTINODULAR GOITER 08/22/2018 INGE SILVESTRE DO Ot E04.2 NONTOXIC MULTINODULAR GOITER 05/21/2019 MARILY HOGUE MD Ot D62 ACUTE POSTHEMORRHAGIC ANEMIA 05/21/2019 MARILY HOGUE MD Ot E11. 9 TYPE 2 DIABETES MELLITUS WITHOUT COMPLIC 05/21/2019 MARILY HOGUE MD Ot E78. 00 PURE HYPERCHOLESTEROLEMIA, UNSPECIFIED 05/21/2019 MARILY HOGUE MD Ot I11. 0 HYPERTENSIVE HEART DISEASE WITH HEART FA 05/21/2019 MARILY HOGUE MD Ot I25. 10 ATHSCL HEART DISEASE OF [place] CORONARY 05/21/2019 MARILY HOGUE MD Ot I48. 20 CHRONIC ATRIAL FIBRILLATION, UNSPECIFIED 05/21/2019 MARILY HOGUE MD Ot I50. 9 HEART FAILURE, UNSPECIFIED 05/21/2019 MARILY HOGUE MD Ot I95. 9 HYPOTENSION, UNSPECIFIED 05/21/2019 MARILY HOGUE MD, Ot J44. 9 CHRONIC OBSTRUCTIVE PULMONARY DISEASE, U 05/21/2019 MARILY HOGUE MD, Ot K21. 9 GASTRO-ESOPHAGEAL REFLUX DISEASE WITHOUT 05/21/2019 MARILY HOGUE MD Ot K92. 2 GASTROINTESTINAL HEMORRHAGE, UNSPECIFIED 05/21/2019 MARILY HOGUE MD, Ot M19. 91 PRIMARY OSTEOARTHRITIS, UNSPECIFIED SITE 05/21/2019 MARILY HOGUE MD Ot Z85.820 PERSONAL HISTORY OF MALIGNANT MELANOMA O 05/21/2019 MARILY HOGUE MD, Ot Z86. 73 PRSNL HX OF TIA (TIA), AND CEREB INFRC W 05/21/2019 MARILY HOGUE MD, Ot Z95.810 PRESENCE OF AUTOMATIC (IMPLANTABLE) CARD 05/21/2019 MARILY HOGUE MD Ot D62 ACUTE POSTHEMORRHAGIC ANEMIA 05/21/2019 MARILY HOGUE MD Ot E11. 9 TYPE 2 DIABETES MELLITUS WITHOUT COMPLIC 05/21/2019 MARILY HOGUE MD Ot E78. 00 PURE HYPERCHOLESTEROLEMIA, UNSPECIFIED 05/21/2019 MARILY HOGUE MD Ot I11. 0 HYPERTENSIVE HEART DISEASE WITH HEART FA 05/21/2019 MARILY HOGUE MD Ot I25. 10 ATHSCL HEART DISEASE OF [place] CORONARY 05/21/2019 MARILY HOGUE MD Ot I48. 20 CHRONIC ATRIAL FIBRILLATION, UNSPECIFIED 05/21/2019 MARILY HOGUE MD Ot I50. 9 HEART FAILURE, UNSPECIFIED 05/21/2019 MARILY HOGUE MD Ot I95. 9 HYPOTENSION, UNSPECIFIED 05/21/2019 MARILY HOGUE MD, Ot J44. 9 CHRONIC OBSTRUCTIVE PULMONARY DISEASE, U 05/21/2019 MARILY HOGUE MD, Ot K21. 9 GASTRO-ESOPHAGEAL REFLUX DISEASE WITHOUT 05/21/2019 MARILY HOGUE MD Ot K92. 2 GASTROINTESTINAL HEMORRHAGE, UNSPECIFIED 05/21/2019 MARILY HOGUE MD, Ot M19. 91 PRIMARY OSTEOARTHRITIS, UNSPECIFIED SITE 05/21/2019 MARILY HOGUE MD, Ot Z85.820 PERSONAL HISTORY OF MALIGNANT MELANOMA O 05/21/2019 MARILY HOGUE MD, Ot Z86. 73 PRSNL HX OF TIA (TIA), AND CEREB INFRC W 05/21/2019 MARILY HOGUE MD Ot Z95.810 PRESENCE OF AUTOMATIC (IMPLANTABLE) CARD 05/21/2019 MARILY HOGUE MD Ot D62 ACUTE POSTHEMORRHAGIC ANEMIA 05/21/2019 MARILY HOGUE MD Ot E11. 9 TYPE 2 DIABETES MELLITUS WITHOUT COMPLIC 05/21/2019 MARILY HOGUE MD Ot E78. 00 PURE HYPERCHOLESTEROLEMIA, UNSPECIFIED 05/21/2019 MARILY HOGUE MD Ot I11. 0 HYPERTENSIVE HEART DISEASE WITH HEART FA 05/21/2019 MARILY HOGUE MD Ot I25. 10 ATHSCL HEART DISEASE OF [place] CORONARY 05/21/2019 MARILY HOGUE MD Ot I48. 20 CHRONIC ATRIAL FIBRILLATION, UNSPECIFIED 05/21/2019 MARILY HOGUE MD, Ot I50. 9 HEART FAILURE, UNSPECIFIED 05/21/2019 MARILY HOGUE MD Ot I95. 9 HYPOTENSION, UNSPECIFIED 05/21/2019 MARILY HOGUE MD Ot J44. 9 CHRONIC OBSTRUCTIVE PULMONARY DISEASE, U 05/21/2019 MARILY HOGUE MD, Ot K21. 9 GASTRO-ESOPHAGEAL REFLUX DISEASE WITHOUT 05/21/2019 MARILY HOGUE MD Ot K92. 2 GASTROINTESTINAL HEMORRHAGE, UNSPECIFIED 05/21/2019 MARILY HOGUE MD Ot M19. 91 PRIMARY OSTEOARTHRITIS, UNSPECIFIED SITE 05/21/2019 MARILY HOGUE MD Ot Z85.820 PERSONAL HISTORY OF MALIGNANT MELANOMA O 05/21/2019 MARILY HOGUE MD, Ot Z86. 73 PRSNL HX OF TIA (TIA), AND CEREB INFRC W 05/21/2019 MARILY HOGUE MD Ot Z95.810 PRESENCE OF AUTOMATIC (IMPLANTABLE) CARD 05/22/2019 MARILY HOGUE MD Ot D62 ACUTE POSTHEMORRHAGIC ANEMIA 05/22/2019 MARILY HOGUE MD Ot E11. 9 TYPE 2 DIABETES MELLITUS WITHOUT COMPLIC 05/22/2019 MARILY HOGUE MD Ot E78. 00 PURE HYPERCHOLESTEROLEMIA, UNSPECIFIED 05/22/2019 MARILY HOGUE MD Ot I11. 0 HYPERTENSIVE HEART DISEASE WITH HEART FA 05/22/2019 MARILY HOGUE MD Ot I25. 10 ATHSCL HEART DISEASE OF [place] CORONARY 05/22/2019 MARILY HOGUE MD Ot I48. 20 CHRONIC ATRIAL FIBRILLATION, UNSPECIFIED 05/22/2019 MARILY HOGUE MD Ot I50. 9 HEART FAILURE, UNSPECIFIED 05/22/2019 MARILY HOGUE MD Ot I95. 9 HYPOTENSION, UNSPECIFIED 05/22/2019 MARILY HOGUE MD Ot J44. 9 CHRONIC OBSTRUCTIVE PULMONARY DISEASE, U 05/22/2019 MARILY HOGUE MD Ot K21. 9 GASTRO-ESOPHAGEAL REFLUX DISEASE WITHOUT 05/22/2019 MARILY HOGUE MD Ot K92. 2 GASTROINTESTINAL HEMORRHAGE, UNSPECIFIED 05/22/2019 MARILY HOGUE MD Ot M19. 91 PRIMARY OSTEOARTHRITIS, UNSPECIFIED SITE 05/22/2019 MARILY HOGUE MD Ot Z85.820 PERSONAL HISTORY OF MALIGNANT MELANOMA O 05/22/2019 MARILY HOGUE MD Ot Z86. 73 PRSNL HX OF TIA (TIA), AND CEREB INFRC W 05/22/2019 MARILY HOGUE MD Ot Z95.810 PRESENCE OF AUTOMATIC (IMPLANTABLE) CARD 05/22/2019 MARILY HOGUE MD Ot D62 ACUTE POSTHEMORRHAGIC ANEMIA 05/22/2019 MARILY HOGUE MD Ot E11. 9 TYPE 2 DIABETES MELLITUS WITHOUT COMPLIC 05/22/2019 MARILY HOGUE MD Ot E78. 00 PURE HYPERCHOLESTEROLEMIA, UNSPECIFIED 05/22/2019 MARILY HOGUE MD Ot I11. 0 HYPERTENSIVE HEART DISEASE WITH HEART FA 05/22/2019 MARILY HOGUE MD Ot I25. 10 ATHSCL HEART DISEASE OF [place] CORONARY 05/22/2019 MARILY HOGUE MD Ot I48. 20 CHRONIC ATRIAL FIBRILLATION, UNSPECIFIED 05/22/2019 MARILY HOGUE MD Ot I50. 9 HEART FAILURE, UNSPECIFIED 05/22/2019 MARILY HOGUE MD Ot I95. 9 HYPOTENSION, UNSPECIFIED 05/22/2019 MARILY HOGUE MD Ot J44. 9 CHRONIC OBSTRUCTIVE PULMONARY DISEASE, U 05/22/2019 MARILY HOGUE MD Ot K21. 9 GASTRO-ESOPHAGEAL REFLUX DISEASE WITHOUT 05/22/2019 MARILY HOGUE MD Ot K92. 2 GASTROINTESTINAL HEMORRHAGE, UNSPECIFIED 05/22/2019 MARILY HOGUE MD, Ot M19. 91 PRIMARY OSTEOARTHRITIS, UNSPECIFIED SITE 05/22/2019 MARILY HOGUE MD Ot Z85.820 PERSONAL HISTORY OF MALIGNANT MELANOMA O 05/22/2019 MARILY HOGUE MD, Ot Z86. 73 PRSNL HX OF TIA (TIA), AND CEREB INFRC W 05/22/2019 MARILY HOGUE MD, Ot Z95.810 PRESENCE OF AUTOMATIC (IMPLANTABLE) CARD 05/23/2019 MARILY HOGUE MD, Ot D62 ACUTE POSTHEMORRHAGIC ANEMIA 05/23/2019 MARILY HOGUE MD Ot E11. 9 TYPE 2 DIABETES MELLITUS WITHOUT COMPLIC 05/23/2019 MARILY HOGUE MD, Ot E78. 00 PURE HYPERCHOLESTEROLEMIA, UNSPECIFIED 05/23/2019 MARILY HOGUE MD, Ot I11. 0 HYPERTENSIVE HEART DISEASE WITH HEART FA 05/23/2019 MARILY HOGUE MD, Ot I25. 10 ATHSCL HEART DISEASE OF [place] CORONARY 05/23/2019 MARILY HOGUE MD Ot I48. 20 CHRONIC ATRIAL FIBRILLATION, UNSPECIFIED 05/23/2019 MARILY HOGUE MD Ot I50. 9 HEART FAILURE, UNSPECIFIED 05/23/2019 MARILY HOGUE MD Ot I95. 9 HYPOTENSION, UNSPECIFIED 05/23/2019 MARILY HOGUE MD, Ot J44. 9 CHRONIC OBSTRUCTIVE PULMONARY DISEASE, U 05/23/2019 MARILY HOGUE MD, Ot K21. 9 GASTRO-ESOPHAGEAL REFLUX DISEASE WITHOUT 05/23/2019 MARILY HOGUE MD Ot K92. 2 GASTROINTESTINAL HEMORRHAGE, UNSPECIFIED 05/23/2019 MARILY HOGUE MD, Ot M19. 91 PRIMARY OSTEOARTHRITIS, UNSPECIFIED SITE 05/23/2019 MARILY HOGUE MD, Ot Z85.820 PERSONAL HISTORY OF MALIGNANT MELANOMA O 05/23/2019 MARILY HOGUE MD, Ot Z86. 73 PRSNL HX OF TIA (TIA), AND CEREB INFRC W 05/23/2019 MARILY HOGUE MD Ot Z95.810 PRESENCE OF AUTOMATIC (IMPLANTABLE) CARD Procedures There is no data. Results Test Result Range Complete blood count (CBC) with automate d white blood cell (WBC) differential - 03/27/18 10:00 Blood leukocytes automated count (number/volume) 19.0 10*3/uL 4.3-11.0 Blood erythrocytes automated count (number/volume) 4.97 10*6/uL 4.35-5.85 Venous blood hemoglobin measurement (mass/volume) 14.9 g/dL 13.3-17.7 Blood hematocrit (volume fraction) 43 % 40-54 Automated erythrocyte mean corpuscular volume 87 [ foz_us] 80-99 Automated erythrocyte mean corpuscular h emoglobin (mass per erythrocyte) 30 pg 25-34 Automated erythrocyte mean corpuscular h emoglobin concentration measurement (mass/volume) 35 g/dL 32-36 Automated erythrocyte distribution width ratio 15. 7 % 10.0- 14.5 Automated blood platelet count (count/volume) 267 10*3/uL [...] 10*3 1.0-4.0 Blood monocytes automated count (number/volume) 1. 2 10*3 0.0-1.0 Automated eosinophil count 0.2 10*3/uL 0 .0-0.3 Automated blood basophil count (count/volume) 0.0 10*3/uL 0.0-0.1 Comprehensive metabolic panel - 03/27/18 10:00 Serum or plasma sodium measurement (moles/volume) 137 mmol/L 135-145 Serum or plasma potassium measurement (moles/volume) 4.1 mmol/L 3.6-5.0 Serum or plasma chloride measurement (moles/volume) 98 mmol/L 98-107 Carbon dioxide 23 mmol/L 21-32 Serum or plasma anion gap determination (moles/volume) 16 mmol/L 5-14 Serum or plasma urea nitrogen measurement (mass/volume ) 25 mg/dL 7-18 Serum or plasma creatinine measurement (mass/volume) 1.43 mg/dL 0.60-1.30 Serum or plasma urea nitrogen/creatinine mass ratio 17 NRG Serum or plasma creatinine measurement w ith calculation of estimated glomerular filtration rate 48 NRG Serum or plasma glucose measurement (mass/volume) 175 mg/dL 70-105 Serum or plasma calcium measurement (mass/volume) 9.8 mg/dL 8.5-10.1 Serum or plasma total bilirubin measurement (mass/volu me) 0.4 mg/dL 0.1-1.0 Serum or plasma alkaline phosphatase roberto surement (enzymatic activity/volume) 47 U/L 40-136 Serum or plasma aspartate aminotransfera se measurement (enzymatic activity/volume) 21 U/L 5-34 Serum or plasma alanine aminotransferase measurement (enzymatic activity/volume) 23 U/L 0-55 Serum or plasma protein measurement (mass/volume) 7.3 g/dL 6.4-8.2 Serum or plasma albumin measurement (mass/volume) 4.3 g/dL 3.2-4.5 CALCIUM CORRECTED 9.6 mg/dL 8.5-10.1 Blood manual differential performed dete ction - 03/27/18 10:00 Blood monocytes/100 leukocytes 6 % NRG Manual blood segmented neutrophils/100 leukocytes 75 % NRG Blood band neutrophils/100 leukocytes 3 % NRG Manual blood lymphocytes/100 leukocytes 12 % NRG Manual eosinophils/100 leukocytes in nose 4 % NRG Manual blood basophils/100 leukocytes 0 % NRG Blood anisocytosis detection by light microscopy S LIGHT NRG Complete urinalysis with reflex to cultu re - 03/27/18 11:45 Urine color determination YELLOW NRG Urine clarity determination CLEAR NR G Urine pH measurement by test strip 6 5-9 Specific gravity of urine by test strip 1.020 1.016-1.022 Urine protein assay by test strip, semi-quantitative 2+ NEGATIVE Urine glucose detection by automated test strip NE GATIVE NEGATIVE Erythrocytes detection in urine sediment by light micr oscopy NEGATIVE NEGATIVE Urine ketones detection by automated test strip 1+ NEGATIVE Urine nitrite detection by test strip NEGATIVE NEGATIVE Urine total bilirubin detection by test strip NEGA TIVE NEGATIVE Urine urobilinogen measurement by automated test strip (mass/volume) 1 mg/dL NORMAL Urine leukocyte esterase detection by dipstick 1+ NEGATIVE Automated urine sediment erythrocyte cou nt by microscopy (number/high power field) NONE NRG Automated urine sediment leukocyte count by microscopy (number/high power field) RARE NRG Bacteria detection in urine sediment by light microsco py TRACE NRG Squamous epithelial cells detection in u rine sediment by light microscopy 0-2 NRG Crystals detection in urine sediment by light microsco py NONE NRG Casts detection in urine sediment by light microscopy PRESENT NRG Mucus detection in urine sediment by light microscopy SMALL NRG Complete urinalysis with reflex to culture NO NRG Hyaline casts detection in urine sediment by light faisal roscopy 0-2 NRG Capillary blood glucose measurement by g lucometer (mass/volume) - 03/27/18 21:45 Capillary blood glucose measurement by glucometer (mas s/volume) 110 mg/dL 70-110 Capillary blood glucose measurement by g lucometer (mass/volume) - 03/28/18 05:09 Capillary blood glucose measurement by glucometer (mas s/volume) 131 mg/dL 70-110 Complete blood count (CBC) with automate d white blood cell (WBC) differential - 03/28/18 06:31 Blood leukocytes automated count (number/volume) 12.4 10*3/uL 4.3-11.0 Blood erythrocytes automated count (number/volume) 4.28 10*6/uL 4.35-5.85 Venous blood hemoglobin measurement (mass/volume) 12.6 g/dL 13.3-17.7 Blood hematocrit (volume fraction) 38 % 40-54 Automated erythrocyte mean corpuscular volume 88 [ foz_us] 80-99 Automated erythrocyte mean corpuscular h emoglobin (mass per erythrocyte) 29 pg 25-34 Automated erythrocyte mean corpuscular h emoglobin concentration measurement (mass/volume) 33 g/dL 32-36 Automated erythrocyte distribution width ratio 15. 6 % 10.0- 14.5 Automated blood platelet count (count/volume) 184 10*3/uL [...] 10*3 1.0-4.0 Blood monocytes automated count (number/volume) 1. 4 10*3 0.0-1.0 Automated eosinophil count 0.1 10*3/uL 0 .0-0.3 Automated blood basophil count (count/volume) 0.0 10*3/uL 0.0-0.1 Comprehensive metabolic panel - 03/28/18 06:31 Serum or plasma sodium measurement (moles/volume) 138 mmol/L 135-145 Serum or plasma potassium measurement (moles/volume) 3.7 mmol/L 3.6-5.0 Serum or plasma chloride measurement (moles/volume) 107 mmol/L 98-107 Carbon dioxide 20 mmol/L 21-32 Serum or plasma anion gap determination (moles/volume) 11 mmol/L 5-14 Serum or plasma urea nitrogen measurement (mass/volume ) 19 mg/dL 7-18 Serum or plasma creatinine measurement (mass/volume) 1.08 mg/dL 0.60-1.30 Serum or plasma urea nitrogen/creatinine mass ratio 18 NRG Serum or plasma creatinine measurement w ith calculation of estimated glomerular filtration rate > NRG Serum or plasma glucose measurement (mass/volume) 129 mg/dL 70-105 Serum or plasma calcium measurement (mass/volume) 8.9 mg/dL 8.5-10.1 Serum or plasma total bilirubin measurement (mass/volu me) 0.4 mg/dL 0.1-1.0 Serum or plasma alkaline phosphatase roberto surement (enzymatic activity/volume) 42 U/L 40-136 Serum or plasma aspartate aminotransfera se measurement (enzymatic activity/volume) 17 U/L 5-34 Serum or plasma alanine aminotransferase measurement (enzymatic activity/volume) 19 U/L 0-55 Serum or plasma protein measurement (mass/volume) 6.0 g/dL 6.4-8.2 Serum or plasma albumin measurement (mass/volume) 3.6 g/dL 3.2-4.5 CALCIUM CORRECTED 9.2 mg/dL 8.5-10.1 Lipid 1996 panel - 03/28/18 06:31 Serum or plasma triglyceride measurement (mass/volume) 139 mg/dL <150 Serum or plasma cholesterol measurement (mass/volume) 115 mg/dL < 200 Serum or plasma cholesterol in HDL measurement (mass/v olume) 43 mg/dL 40-60 Cholesterol in LDL [mass/volume] in serum or plasma by direct assay 48 mg/dL 1-129 Serum or plasma cholesterol in VLDL measurement (mass/ volume) 28 mg/dL 5-40 Capillary blood glucose measurement by g lucometer (mass/volume) - 03/28/18 12:29 Capillary blood glucose measurement by glucometer (mas s/volume) 104 mg/dL 70-110 Capillary blood glucose measurement by g lucometer (mass/volume) - 03/28/18 16:50 Capillary blood glucose measurement by glucometer (mas s/volume) 128 mg/dL 70-110 Capillary blood glucose measurement by g lucometer (mass/volume) - 03/28/18 21:02 Capillary blood glucose measurement by glucometer (mas s/volume) 99 mg/dL 70-110 Capillary blood glucose measurement by g lucometer (mass/volume) - 03/29/18 05:02 Capillary blood glucose measurement by glucometer (mas s/volume) 114 mg/dL 70-110 Capillary blood glucose measurement by g lucometer (mass/volume) - 03/29/18 12:36 Capillary blood glucose measurement by glucometer (mas s/volume) 129 mg/dL 70-110 Capillary blood glucose measurement by g lucometer (mass/volume) - 03/29/18 20:38 Capillary blood glucose measurement by glucometer (mas s/volume) 142 mg/dL 70-110 Capillary blood glucose measurement by g lucometer (mass/volume) - 03/30/18 06:02 Capillary blood glucose measurement by glucometer (mas s/volume) 116 mg/dL 70-110 Capillary blood glucose measurement by g lucometer (mass/volume) - 03/30/18 11:54 Capillary blood glucose measurement by glucometer (mas s/volume) 124 mg/dL 70-110 Capillary blood glucose measurement by g lucometer (mass/volume) - 03/30/18 16:57 Capillary blood glucose measurement by glucometer (mas s/volume) 161 mg/dL 70-110 Capillary blood glucose measurement by g lucometer (mass/volume) - 03/30/18 20:56 Capillary blood glucose measurement by glucometer (mas s/volume) 149 mg/dL 70-110 Capillary blood glucose measurement by g lucometer (mass/volume) - 03/31/18 06:03 Capillary blood glucose measurement by glucometer (mas s/volume) 127 mg/dL 70-110 Complete blood count (CBC) with automate d white blood cell (WBC) differential - 03/31/18 06:45 Blood leukocytes automated count (number/volume) 10.5 10*3/uL 4.3-11.0 Blood erythrocytes automated count (number/volume) 4.48 10*6/uL 4.35-5.85 Venous blood hemoglobin measurement (mass/volume) 13.2 g/dL 13.3-17.7 Blood hematocrit (volume fraction) 39 % 40-54 Automated erythrocyte mean corpuscular volume 87 [ foz_us] 80-99 Automated erythrocyte mean corpuscular h emoglobin (mass per erythrocyte) 29 pg 25-34 Automated erythrocyte mean corpuscular h emoglobin concentration measurement (mass/volume) 34 g/dL 32-36 Automated erythrocyte distribution width ratio 15. 8 % 10.0- 14.5 Automated blood platelet count (count/volume) 215 10*3/uL [...] 10*3 1.0-4.0 Blood monocytes automated count (number/volume) 1. 1 10*3 0.0-1.0 Automated eosinophil count 0.4 10*3/uL 0 .0-0.3 Automated blood basophil count (count/volume) 0.0 10*3/uL 0.0-0.1 Comprehensive metabolic panel - 03/31/18 06:45 Serum or plasma sodium measurement (moles/volume) 140 mmol/L 135-145 Serum or plasma potassium measurement (moles/volume) 3.7 mmol/L 3.6-5.0 Serum or plasma chloride measurement (moles/volume) 106 mmol/L 98-107 Carbon dioxide 23 mmol/L 21-32 Serum or plasma anion gap determination (moles/volume) 11 mmol/L 5-14 Serum or plasma urea nitrogen measurement (mass/volume ) 18 mg/dL 7-18 Serum or plasma creatinine measurement (mass/volume) 0.88 mg/dL 0.60-1.30 Serum or plasma urea nitrogen/creatinine mass ratio 20 NRG Serum or plasma creatinine measurement w ith calculation of estimated glomerular filtration rate > NRG Serum or plasma glucose measurement (mass/volume) 101 mg/dL 70-105 Serum or plasma calcium measurement (mass/volume) 9.4 mg/dL 8.5-10.1 Serum or plasma total bilirubin measurement (mass/volu me) 0.5 mg/dL 0.1-1.0 Serum or plasma alkaline phosphatase roberto surement (enzymatic activity/volume) 44 U/L 40-136 Serum or plasma aspartate aminotransfera se measurement (enzymatic activity/volume) 22 U/L 5-34 Serum or plasma alanine aminotransferase measurement (enzymatic activity/volume) 22 U/L 0-55 Serum or plasma protein measurement (mass/volume) 6.3 g/dL 6.4-8.2 Serum or plasma albumin measurement (mass/volume) 3.7 g/dL 3.2-4.5 CALCIUM CORRECTED 9.6 mg/dL 8.5-10.1 Capillary blood glucose measurement by g lucometer (mass/volume) - 03/31/18 11:10 Capillary blood glucose measurement by glucometer (mas s/volume) 202 mg/dL 70-110 Capillary blood glucose measurement by g lucometer (mass/volume) - 03/31/18 16:46 Capillary blood glucose measurement by glucometer (mas s/volume) 124 mg/dL 70-110 Capillary blood glucose measurement by g lucometer (mass/volume) - 03/31/18 20:56 Capillary blood glucose measurement by glucometer (mas s/volume) 157 mg/dL 70-110 Capillary blood glucose measurement by g lucometer (mass/volume) - 04/01/18 05:54 Capillary blood glucose measurement by glucometer (mas s/volume) 90 mg/dL 70-110 Capillary blood glucose measurement by g lucometer (mass/volume) - 04/01/18 11:51 Capillary blood glucose measurement by glucometer (mas s/volume) 108 mg/dL 70-110 Capillary blood glucose measurement by g lucometer (mass/volume) - 04/01/18 16:56 Capillary blood glucose measurement by glucometer (mas s/volume) 150 mg/dL 70-110 Capillary blood glucose measurement by g lucometer (mass/volume) - 04/01/18 20:27 Capillary blood glucose measurement by glucometer (mas s/volume) 142 mg/dL 70-110 Capillary blood glucose measurement by g lucometer (mass/volume) - 04/02/18 05:16 Capillary blood glucose measurement by glucometer (mas s/volume) 86 mg/dL 70-110 Capillary blood glucose measurement by g lucometer (mass/volume) - 04/02/18 12:02 Capillary blood glucose measurement by glucometer (mas s/volume) 104 mg/dL 70-110 Capillary blood glucose measurement by g lucometer (mass/volume) - 04/02/18 15:22 Capillary blood glucose measurement by glucometer (mas s/volume) 97 mg/dL 70-110 Capillary blood glucose measurement by g lucometer (mass/volume) - 04/02/18 20:06 Capillary blood glucose measurement by glucometer (mas s/volume) 165 mg/dL 70-110 Capillary blood glucose measurement by g lucometer (mass/volume) - 04/03/18 05:41 Capillary blood glucose measurement by glucometer (mas s/volume) 114 mg/dL 70-110 Capillary blood glucose measurement by g lucometer (mass/volume) - 04/03/18 10:49 Capillary blood glucose measurement by glucometer (mas s/volume) 126 mg/dL 70-110 Capillary blood glucose measurement by g lucometer (mass/volume) - 04/03/18 16:20 Capillary blood glucose measurement by glucometer (mas s/volume) 138 mg/dL 70-110 Capillary blood glucose measurement by g lucometer (mass/volume) - 04/03/18 20:38 Capillary blood glucose measurement by glucometer (mas s/volume) 137 mg/dL 70-110 Capillary blood glucose measurement by g lucometer (mass/volume) - 04/04/18 05:13 Capillary blood glucose measurement by glucometer (mas s/volume) 97 mg/dL 70-110 Capillary blood glucose measurement by g lucometer (mass/volume) - 04/04/18 11:18 Capillary blood glucose measurement by glucometer (mas s/volume) 114 mg/dL 70-110 Capillary blood glucose measurement by g lucometer (mass/volume) - 04/04/18 16:01 Capillary blood glucose measurement by glucometer (mas s/volume) 136 mg/dL 70-110 Capillary blood glucose measurement by g lucometer (mass/volume) - 04/04/18 20:44 Capillary blood glucose measurement by glucometer (mas s/volume) 120 mg/dL 70-110 Capillary blood glucose measurement by g lucometer (mass/volume) - 04/05/18 06:22 Capillary blood glucose measurement by glucometer (mas s/volume) 97 mg/dL 70-110 Capillary blood glucose measurement by g lucometer (mass/volume) - 04/05/18 11:37 Capillary blood glucose measurement by glucometer (mas s/volume) 163 mg/dL 70-110 Capillary blood glucose measurement by g lucometer (mass/volume) - 04/05/18 16:42 Capillary blood glucose measurement by glucometer (mas s/volume) 130 mg/dL 70-110 Capillary blood glucose measurement by g lucometer (mass/volume) - 04/05/18 20:42 Capillary blood glucose measurement by glucometer (mas s/volume) 115 mg/dL 70-110 Capillary blood glucose measurement by g lucometer (mass/volume) - 04/06/18 06:11 Capillary blood glucose measurement by glucometer (mas s/volume) 96 mg/dL 70-110 Capillary blood glucose measurement by g lucometer (mass/volume) - 04/06/18 11:01 Capillary blood glucose measurement by glucometer (mas s/volume) 141 mg/dL 70-110 Capillary blood glucose measurement by g lucometer (mass/volume) - 04/07/18 04:24 Capillary blood glucose measurement by glucometer (mas s/volume) 91 mg/dL 70-110 Capillary blood glucose measurement by g lucometer (mass/volume) - 04/08/18 05:26 Capillary blood glucose measurement by glucometer (mas s/volume) 85 mg/dL 70-110 Blood CBC with ordered manual differenti al panel - 05/18/19 14:25 Blood leukocytes automated count (number/volume) 12.3 10*3/uL 4.3-11.0 Blood erythrocytes automated count (number/volume) 3.04 10*6/uL 4.35-5.85 Venous blood hemoglobin measurement (mass/volume) 4.5 g/dL 13.3-17.7 Blood hematocrit (volume fraction) 17 % 40-54 Automated erythrocyte mean corpuscular volume 56 [ foz_us] 80-99 Automated erythrocyte mean corpuscular h emoglobin (mass per erythrocyte) 15 pg 25-34 Automated erythrocyte mean corpuscular h emoglobin concentration measurement (mass/volume) 26 g/dL 32-36 Automated erythrocyte distribution width ratio 22. 4 % 10.0- 14.5 Automated blood platelet count (count/volume) 499 10*3/uL 130-400 Automated blood platelet mean volume measurement 10.1 [foz_us] 7.4-10.4 Automated blood neutrophils/100 leukocytes 82 % 42-75 Automated blood lymphocytes/100 leukocytes 10 % 12-44 Blood monocytes/100 leukocytes 4 % NRG Automated blood eosinophils/100 leukocytes 1 % 0-10 Automated blood basophils/100 leukocytes 0 % 0-10 Blood neutrophils automated count (number/volume) 10.0 10*3 1.8-7.8 Blood lymphocytes automated count (number/volume) 1.3 10*3 1.0-4.0 Blood monocytes automated count (number/volume) 0. 9 10*3 0.0-1.0 Automated eosinophil count 0.1 10*3/uL 0 .0-0.3 Automated blood basophil count (count/volume) 0.0 10*3/uL 0.0-0.1 Manual blood segmented neutrophils/100 leukocytes 83 % NRG Blood band neutrophils/100 leukocytes 0 % NRG Manual blood lymphocytes/100 leukocytes 12 % NRG Manual eosinophils/100 leukocytes in nose 1 % NRG Manual blood basophils/100 leukocytes 0 % NRG Blood polychromasia detection by light microscopy SLIGHT NRG Blood anisocytosis detection by light microscopy M ODERATE NRG Blood ovalocytes detection by light microscopy SLI GHT NRG Blood poikilocytosis detection by light microscopy MODERATE NRG Blood hypochromia detection by light microscopy MO DERATE NRG Blood microcytes detection by light microscopy MOD ERATE [facility] Comprehensive metabolic panel - 05/18/19 14:25 Serum or plasma sodium measurement (moles/volume) 135 mmol/L 135-145 Serum or plasma potassium measurement (moles/volume) 4.5 mmol/L 3.6-5.0 Serum or plasma chloride measurement (moles/volume) 103 mmol/L 98-107 Carbon dioxide 24 mmol/L 21-32 Serum or plasma anion gap determination (moles/volume) 8 mmol/L 5-14 Serum or plasma urea nitrogen measurement (mass/volume ) 20 mg/dL 7-18 Serum or plasma creatinine measurement (mass/volume) 1.65 mg/dL 0.60-1.30 Serum or plasma urea nitrogen/creatinine mass ratio 12 NRG Serum or plasma creatinine measurement w ith calculation of estimated glomerular filtration rate 41 NRG Serum or plasma glucose measurement (mass/volume) 133 mg/dL 70-105 Serum or plasma calcium measurement (mass/volume) 8.8 mg/dL 8.5-10.1 Serum or plasma total bilirubin measurement (mass/volu me) 0.6 mg/dL 0.1-1.0 Serum or plasma alkaline phosphatase roberto surement (enzymatic activity/volume) 51 U/L 40-136 Serum or plasma aspartate aminotransfera se measurement (enzymatic activity/volume) 45 U/L 5-34 Serum or plasma alanine aminotransferase measurement (enzymatic activity/volume) 36 U/L 0-55 Serum or plasma protein measurement (mass/volume) 6.1 g/dL 6.4-8.2 Serum or plasma albumin measurement (mass/volume) 3.5 g/dL 3.2-4.5 CALCIUM CORRECTED 9.2 mg/dL 8.5-10.1 Serum or plasma phosphate measurement (m ass/volume) - 05/18/19 14:25 Serum or plasma phosphate measurement (mass/volume) 3.2 mg/dL 2.3-4.7 Magnesium - 05/18/19 14:25 Magnesium 2.1 mg/dL 1.6-2.4 RED CELLS LEUKO REDUCED AS1 - 05/18/19 1 4:25 RED CELLS LEUKO REDUCED AS1 T RANSFUSED 05/19/19 0932 [facility] Blood type T Indirect antibody screen pa shayna - 05/18/19 14:25 WRISTBAND NUMBER [id number] [facility] ABO+Rh group AP NR Blood group antibody screen NEGATIVE NR PT panel in platelet poor plasma by coag ulation assay - 05/18/19 14:25 Prothrombin time (PT) in platelet poor plasma by coagu lation assay 20.7 s 12.2-14.7 INR in platelet poor plasma or blood by coagulation as say 1.7 0.8-1.4 Activated partial thromboplastin time (a PTT) in platelet poor plasma bycoagulation assay - 05/18/19 14:25 Activated partial thromboplastin time (a PTT) in platelet poor plasma bycoagulation assay 30 s 24-35 Serum iron and total iron binding capaci ty panel - 05/18/19 14:25 TIBC See Est TIBC 280-380 UIBC 435 % 55-450 Serum or plasma iron measurement (mass/volume) < % 40-180 Total iron binding capacity and transferrin saturation measurement See Est %Sat 15-50 Serum or plasma ferritin measurement (mass/volume) 4.5 % 32.0-356.0 EST TIBC - 05/18/19 14:25 EST TIBC 445 % 280-380 EST %SATURATION - 05/18/19 14:25 EST %SATURATION 2 % 15-50 Complete blood count (CBC) with automate d white blood cell (WBC) differential - 05/18/19 22:14 Blood leukocytes automated count (number/volume) 11.5 10*3/uL 4.3-11.0 Blood erythrocytes automated count (number/volume) 3.57 10*6/uL 4.35-5.85 Venous blood hemoglobin measurement (mass/volume) 6.9 g/dL 13.3-17.7 Blood hematocrit (volume fraction) 23 % 40-54 Automated erythrocyte mean corpuscular volume 63 [ foz_us] 80-99 Automated erythrocyte mean corpuscular h emoglobin (mass per erythrocyte) 19 pg 25-34 Automated erythrocyte mean corpuscular h emoglobin concentration measurement (mass/volume) 31 g/dL 32-36 Automated erythrocyte distribution width ratio 30. 8 % 10.0- 14.5 Automated blood platelet count (count/volume) 423 10*3/uL 130-400 Automated blood platelet mean volume measurement 9.9 [foz_us] 7.4-10.4 Automated blood neutrophils/100 leukocytes 69 % 42-75 Automated blood lymphocytes/100 leukocytes 18 % 12-44 Blood monocytes/100 leukocytes 12 % 0-12 Automated blood eosinophils/100 leukocytes 1 % 0-10 Automated blood basophils/100 leukocytes 0 % 0-10 Blood neutrophils automated count (number/volume) 7.9 10*3 1.8-7.8 Blood lymphocytes automated count (number/volume) 2.0 10*3 1.0-4.0 Blood monocytes automated count (number/volume) 1. 4 10*3 0.0-1.0 Automated eosinophil count 0.1 10*3/uL 0 .0-0.3 Automated blood basophil count (count/volume) 0.0 10*3/uL 0.0-0.1 Blood blood smear finding identification by light micr oscopy YES NRG Complete blood count (CBC) with automate d white blood cell (WBC) differential - 05/19/19 03:15 Blood leukocytes automated count (number/volume) 10.8 10*3/uL 4.3-11.0 Blood erythrocytes automated count (number/volume) 3.38 10*6/uL 4.35-5.85 Venous blood hemoglobin measurement (mass/volume) 6.4 g/dL 13.3-17.7 Blood hematocrit (volume fraction) 21 % 40-54 Automated erythrocyte mean corpuscular volume 63 [ foz_us] 80-99 Automated erythrocyte mean corpuscular h emoglobin (mass per erythrocyte) 19 pg 25-34 Automated erythrocyte mean corpuscular h emoglobin concentration measurement (mass/volume) 30 g/dL 32-36 Automated erythrocyte distribution width ratio 30. 2 % 10.0- 14.5 Automated blood platelet count (count/volume) 418 10*3/uL 130-400 Automated blood platelet mean volume measurement 10.1 [foz_us] 7.4-10.4 Automated blood neutrophils/100 leukocytes 69 % 42-75 Automated blood lymphocytes/100 leukocytes 18 % 12-44 Blood monocytes/100 leukocytes 12 % 0-12 Automated blood eosinophils/100 leukocytes 2 % 0-10 Automated blood basophils/100 leukocytes 0 % 0-10 Blood neutrophils automated count (number/volume) 7.4 10*3 1.8-7.8 Blood lymphocytes automated count (number/volume) 1.9 10*3 1.0-4.0 Blood monocytes automated count (number/volume) 1. 2 10*3 0.0-1.0 Automated eosinophil count 0.2 10*3/uL 0 .0-0.3 Automated blood basophil count (count/volume) 0.0 10*3/uL 0.0-0.1 Whole blood basic metabolic panel - 06/04 03:15 Serum or plasma sodium measurement (moles/volume) 136 mmol/L 135-145 Serum or plasma potassium measurement (moles/volume) 4.1 mmol/L 3.6-5.0 Serum or plasma chloride measurement (moles/volume) 106 mmol/L 98-107 Carbon dioxide 21 mmol/L 21-32 Serum or plasma anion gap determination (moles/volume) 9 mmol/L 5-14 Serum or plasma urea nitrogen measurement (mass/volume ) 18 mg/dL 7-18 Serum or plasma creatinine measurement (mass/volume) 1.13 mg/dL 0.60-1.30 Serum or plasma urea nitrogen/creatinine mass ratio 16 NRG Serum or plasma creatinine measurement w ith calculation of estimated glomerular filtration rate > NRG Serum or plasma glucose measurement (mass/volume) 38 mg/dL 70-105 Serum or plasma calcium measurement (mass/volume) 8.2 mg/dL 8.5-10.1 Serum or plasma phosphate measurement (m ass/volume) - 05/19/19 03:15 Serum or plasma phosphate measurement (mass/volume) 2.8 mg/dL 2.3-4.7 Magnesium - 05/19/19 03:15 Magnesium 1.9 mg/dL 1.6-2.4 Capillary blood glucose measurement by g lucometer (mass/volume) - 05/19/19 04:13 Capillary blood glucose measurement by glucometer (mas s/volume) 46 mg/dL 70-110 Capillary blood glucose measurement by g lucometer (mass/volume) - 05/19/19 04:40 Capillary blood glucose measurement by glucometer (mas s/volume) 61 mg/dL 70-110 Capillary blood glucose measurement by g lucometer (mass/volume) - 05/19/19 10:22 Capillary blood glucose measurement by glucometer (mas s/volume) 74 mg/dL 70-110 Capillary blood glucose measurement by g lucometer (mass/volume) - 05/19/19 11:30 Capillary blood glucose measurement by glucometer (mas s/volume) 44 mg/dL 70-110 Capillary blood glucose measurement by g lucometer (mass/volume) - 05/19/19 11:56 Capillary blood glucose measurement by glucometer (mas s/volume) 48 mg/dL 70-110 Capillary blood glucose measurement by g lucometer (mass/volume) - 05/19/19 12:21 Capillary blood glucose measurement by glucometer (mas s/volume) 61 mg/dL 70-110 Capillary blood glucose measurement by g lucometer (mass/volume) - 05/19/19 12:46 Capillary blood glucose measurement by glucometer (mas s/volume) 76 mg/dL 70-110 Capillary blood glucose measurement by g lucometer (mass/volume) - 05/19/19 13:53 Capillary blood glucose measurement by glucometer (mas s/volume) 85 mg/dL 70-110 Capillary blood glucose measurement by g lucometer (mass/volume) - 05/19/19 15:00 Capillary blood glucose measurement by glucometer (mas s/volume) 93 mg/dL 70-110 Capillary blood glucose measurement by g lucometer (mass/volume) - 05/19/19 15:56 Capillary blood glucose measurement by glucometer (mas s/volume) 105 mg/dL 70-110 Capillary blood glucose measurement by g lucometer (mass/volume) - 05/19/19 16:58 Capillary blood glucose measurement by glucometer (mas s/volume) 87 mg/dL 70-110 Whole blood hemoglobin and hematocrit pa shayna - 05/19/19 16:58 Venous blood hemoglobin measurement (mass/volume) 8.5 g/dL 13.3-17.7 Blood hematocrit (volume fraction) 27 % 40-54 Capillary blood glucose measurement by g lucometer (mass/volume) - 05/19/19 20:29 Capillary blood glucose measurement by glucometer (mas s/volume) 62 mg/dL 70-110 Complete blood count (CBC) with automate d white blood cell (WBC) differential - 05/20/19 03:04 Blood leukocytes automated count (number/volume) 15.6 10*3/uL 4.3-11.0 Blood erythrocytes automated count (number/volume) 4.18 10*6/uL 4.35-5.85 Venous blood hemoglobin measurement (mass/volume) 8.7 g/dL 13.3-17.7 Blood hematocrit (volume fraction) 28 % 40-54 Automated erythrocyte mean corpuscular volume 68 [ foz_us] 80-99 Automated erythrocyte mean corpuscular h emoglobin (mass per erythrocyte) 21 pg 25-34 Automated erythrocyte mean corpuscular h emoglobin concentration measurement (mass/volume) 31 g/dL 32-36 Automated erythrocyte distribution width ratio TNP 10.0- 14.5 Automated blood platelet count (count/volume) 441 10*3/uL 130-400 Automated blood platelet mean volume measurement [employer] 7.4- 10.4 Automated blood neutrophils/100 leukocytes 70 % 42-75 Automated blood lymphocytes/100 leukocytes 16 % 12-44 Blood monocytes/100 leukocytes 13 % 0-12 Automated blood eosinophils/100 leukocytes 2 % 0-10 Automated blood basophils/100 leukocytes 0 % 0-10 Blood neutrophils automated count (number/volume) 10.9 10*3 1.8-7.8 Blood lymphocytes automated count (number/volume) 2.4 10*3 1.0-4.0 Blood monocytes automated count (number/volume) 2. 0 10*3 0.0-1.0 Automated eosinophil count 0.3 10*3/uL 0 .0-0.3 Automated blood basophil count (count/volume) 0.0 10*3/uL 0.0-0.1 Whole blood basic metabolic panel - 07/05 03:04 Serum or plasma sodium measurement (moles/volume) 138 mmol/L 135-145 Serum or plasma potassium measurement (moles/volume) 4.0 mmol/L 3.6-5.0 Serum or plasma chloride measurement (moles/volume) 108 mmol/L 98-107 Carbon dioxide 22 mmol/L 21-32 Serum or plasma anion gap determination (moles/volume) 8 mmol/L 5-14 Serum or plasma urea nitrogen measurement (mass/volume ) 15 mg/dL 7-18 Serum or plasma creatinine measurement (mass/volume) 0.97 mg/dL 0.60-1.30 Serum or plasma urea nitrogen/creatinine mass ratio 15 NRG Serum or plasma creatinine measurement w ith calculation of estimated glomerular filtration rate > NRG Serum or plasma glucose measurement (mass/volume) 29 mg/dL 70-105 Serum or plasma calcium measurement (mass/volume) 8.3 mg/dL 8.5-10.1 Serum or plasma phosphate measurement (m ass/volume) - 05/20/19 03:04 Serum or plasma phosphate measurement (mass/volume) 2.4 mg/dL 2.3-4.7 Magnesium - 05/20/19 03:04 Magnesium 2.1 mg/dL 1.6-2.4 Manual absolute plasma cell count - 07/05 03:04 Blood monocytes/100 leukocytes 8 % NRG Manual blood segmented neutrophils/100 leukocytes 79 % NRG Manual blood lymphocytes/100 leukocytes 12 % NRG Manual eosinophils/100 leukocytes in nose 1 % NRG Blood polychromasia detection by light microscopy SLIGHT NRG Blood anisocytosis detection by light microscopy S LIGHT NRG Blood poikilocytosis detection by light microscopy SLIGHT NRG Blood hypochromia detection by light microscopy SL IGHT NRG Blood bin cells detection by light microscopy MOD ERATE NRG Acanthocyte detection SLIGHT NRG Serum or plasma glucose measurement (mas s/volume) - 05/20/19 03:04 Serum or plasma glucose measurement (mass/volume) 27 mg/dL 70-105 Beta-hydroxybutyric acid measurement - 0 05/20/19 03:04 Beta-hydroxybutyric acid measurement 0.14 mmol/L 0.00-0.27 Capillary blood glucose measurement by g lucometer (mass/volume) - 05/20/19 04:34 Capillary blood glucose measurement by glucometer (mas s/volume) 38 mg/dL 70-110 Capillary blood glucose measurement by g lucometer (mass/volume) - 05/20/19 04:42 Capillary blood glucose measurement by glucometer (mas s/volume) 209 mg/dL 70-110 Capillary blood glucose measurement by g lucometer (mass/volume) - 05/20/19 05:02 Capillary blood glucose measurement by glucometer (mas s/volume) 156 mg/dL 70-110 C PEPTIDE - 05/20/19 05:05 C PEPTIDE P NRG Serum insulin antibody detection - 05/19 05:05 Serum insulin antibody assay (mass/volume) NRG Serum or plasma insulin measurement (uni ts/volume) - 05/20/19 05:05 INSULIN SERUM NRG PROINSULIN - 05/20/19 05:05 PROINSULIN PT NRG Capillary blood glucose measurement by g lucometer (mass/volume) - 05/20/19 05:46 Capillary blood glucose measurement by glucometer (mas s/volume) 147 mg/dL 70-110 Capillary blood glucose measurement by g lucometer (mass/volume) - 05/20/19 07:56 Capillary blood glucose measurement by glucometer (mas s/volume) 74 mg/dL 70-110 Capillary blood glucose measurement by g lucometer (mass/volume) - 05/20/19 11:44 Capillary blood glucose measurement by glucometer (mas s/volume) 202 mg/dL 70-110 Capillary blood glucose measurement by g lucometer (mass/volume) - 05/20/19 16:28 Capillary blood glucose measurement by glucometer (mas s/volume) 227 mg/dL 70-110 Capillary blood glucose measurement by g lucometer (mass/volume) - 05/20/19 19:55 Capillary blood glucose measurement by glucometer (mas s/volume) 202 mg/dL 70-110 Capillary blood glucose measurement by g lucometer (mass/volume) - 05/20/19 23:14 Capillary blood glucose measurement by glucometer (mas s/volume) 188 mg/dL 70-110 Complete blood count (CBC) with automate d white blood cell (WBC) differential - 05/21/19 02:38 Blood leukocytes automated count (number/volume) 13.1 10*3/uL 4.3-11.0 Blood erythrocytes automated count (number/volume) 3.90 10*6/uL 4.35-5.85 Venous blood hemoglobin measurement (mass/volume) 8.3 g/dL 13.3-17.7 Blood hematocrit (volume fraction) 27 % 40-54 Automated erythrocyte mean corpuscular volume 70 [ foz_us] 80-99 Automated erythrocyte mean corpuscular h emoglobin (mass per erythrocyte) 21 pg 25-34 Automated erythrocyte mean corpuscular h emoglobin concentration measurement (mass/volume) 30 g/dL 32-36 Automated erythrocyte distribution width ratio 31. 9 % 10.0- 14.5 Automated blood platelet count (count/volume) 316 10*3/uL 130-400 Automated blood platelet mean volume measurement [employer] 7.4- 10.4 Automated blood neutrophils/100 leukocytes 67 % 42-75 Automated blood lymphocytes/100 leukocytes 18 % 12-44 Blood monocytes/100 leukocytes 12 % 0-12 Automated blood eosinophils/100 leukocytes 3 % 0-10 Automated blood basophils/100 leukocytes 0 % 0-10 Blood neutrophils automated count (number/volume) 8.8 10*3 1.8-7.8 Blood lymphocytes automated count (number/volume) 2.3 10*3 1.0-4.0 Blood monocytes automated count (number/volume) 1. 5 10*3 0.0-1.0 Automated eosinophil count 0.4 10*3/uL 0 .0-0.3 Automated blood basophil count (count/volume) 0.0 10*3/uL 0.0-0.1 Whole blood basic metabolic panel - 08/04 02:38 Serum or plasma sodium measurement (moles/volume) 138 mmol/L 135-145 Serum or plasma potassium measurement (moles/volume) 4.0 mmol/L 3.6-5.0 Serum or plasma chloride measurement (moles/volume) 108 mmol/L 98-107 Carbon dioxide 21 mmol/L 21-32 Serum or plasma anion gap determination (moles/volume) 9 mmol/L 5-14 Serum or plasma urea nitrogen measurement (mass/volume ) 8 mg/dL 7-18 Serum or plasma creatinine measurement (mass/volume) 0.87 mg/dL 0.60-1.30 Serum or plasma urea nitrogen/creatinine mass ratio 9 NRG Serum or plasma creatinine measurement w ith calculation of estimated glomerular filtration rate > NRG Serum or plasma glucose measurement (mass/volume) 118 mg/dL 70-105 Serum or plasma calcium measurement (mass/volume) 8.0 mg/dL 8.5-10.1 Serum or plasma phosphate measurement (m ass/volume) - 05/21/19 02:38 Serum or plasma phosphate measurement (mass/volume) 2.6 mg/dL 2.3-4.7 Magnesium - 05/21/19 02:38 Magnesium 1.8 mg/dL 1.6-2.4 Capillary blood glucose measurement by g lucometer (mass/volume) - 05/21/19 03:24 Capillary blood glucose measurement by glucometer (mas s/volume) 123 mg/dL 70-110 Capillary blood glucose measurement by g lucometer (mass/volume) - 05/21/19 07:48 Capillary blood glucose measurement by glucometer (mas s/volume) 76 mg/dL 70-110 Capillary blood glucose measurement by g lucometer (mass/volume) - 05/21/19 16:26 Capillary blood glucose measurement by glucometer (mas s/volume) 179 mg/dL 70-110 Capillary blood glucose measurement by g lucometer (mass/volume) - 05/21/19 18:06 Capillary blood glucose measurement by glucometer (mas s/volume) 169 mg/dL 70-110 Capillary blood glucose measurement by g lucometer (mass/volume) - 05/21/19 20:27 Capillary blood glucose measurement by glucometer (mas s/volume) 133 mg/dL 70-110 Capillary blood glucose measurement by g lucometer (mass/volume) - 05/21/19 21:57 Capillary blood glucose measurement by glucometer (mas s/volume) 133 mg/dL 70-110 Capillary blood glucose measurement by g lucometer (mass/volume) - 03/06/20 00:17 Capillary blood glucose measurement by glucometer (mas s/volume) 136 mg/dL 70-110 Capillary blood glucose measurement by g lucometer (mass/volume) - 05/22/19 01:57 Capillary blood glucose measurement by glucometer (mas s/volume) 129 mg/dL 70-110 Complete blood count (CBC) with automate d white blood cell (WBC) differential - 05/22/19 04:08 Blood leukocytes automated count (number/volume) 21.9 10*3/uL 4.3-11.0 Blood erythrocytes automated count (number/volume) 4.22 10*6/uL 4.35-5.85 Venous blood hemoglobin measurement (mass/volume) 9.1 g/dL 13.3-17.7 Blood hematocrit (volume fraction) 30 % 40-54 Automated erythrocyte mean corpuscular volume 70 [ foz_us] 80-99 Automated erythrocyte mean corpuscular h emoglobin (mass per erythrocyte) 22 pg 25-34 Automated erythrocyte mean corpuscular h emoglobin concentration measurement (mass/volume) 31 g/dL 32-36 Automated erythrocyte distribution width ratio TNP 10.0- 14.5 Automated blood platelet count (count/volume) 363 10*3/uL 130-400 Automated blood platelet mean volume measurement [employer] 7.4- 10.4 Automated blood neutrophils/100 leukocytes 85 % 42-75 Automated blood lymphocytes/100 leukocytes 8 % 12-44 Blood monocytes/100 leukocytes 7 % 0-12 Automated blood eosinophils/100 leukocytes 1 % 0-10 Automated blood basophils/100 leukocytes 0 % 0-10 Blood neutrophils automated count (number/volume) 18.6 10*3 1.8-7.8 Blood lymphocytes automated count (number/volume) 1.7 10*3 1.0-4.0 Blood monocytes automated count (number/volume) 1. 4 10*3 0.0-1.0 Automated eosinophil count 0.1 10*3/uL 0 .0-0.3 Automated blood basophil count (count/volume) 0.0 10*3/uL 0.0-0.1 Whole blood basic metabolic panel - 09/04 04:08 Serum or plasma sodium measurement (moles/volume) 135 mmol/L 135-145 Serum or plasma potassium measurement (moles/volume) 3.9 mmol/L 3.6-5.0 Serum or plasma chloride measurement (moles/volume) 102 mmol/L 98-107 Carbon dioxide 24 mmol/L 21-32 Serum or plasma anion gap determination (moles/volume) 9 mmol/L 5-14 Serum or plasma urea nitrogen measurement (mass/volume ) 8 mg/dL 7-18 Serum or plasma creatinine measurement (mass/volume) 0.91 mg/dL 0.60-1.30 Serum or plasma urea nitrogen/creatinine mass ratio 9 NRG Serum or plasma creatinine measurement w ith calculation of estimated glomerular filtration rate > NRG Serum or plasma glucose measurement (mass/volume) 115 mg/dL 70-105 Serum or plasma calcium measurement (mass/volume) 8.2 mg/dL 8.5-10.1 Serum or plasma phosphate measurement (m ass/volume) - 05/22/19 04:08 Serum or plasma phosphate measurement (mass/volume) 3.5 mg/dL 2.3-4.7 Magnesium - 05/22/19 04:08 Magnesium 1.8 mg/dL 1.6-2.4 Manual absolute plasma cell count - 09/04 04:08 Blood monocytes/100 leukocytes 5 % NRG Manual blood segmented neutrophils/100 leukocytes 85 % NRG Blood band neutrophils/100 leukocytes 2 % NRG Manual blood lymphocytes/100 leukocytes 8 % NRG Blood anisocytosis detection by light microscopy M ODERATE NRG Blood macrocytes detection by light microscopy [facility] Blood poikilocytosis detection by light microscopy MODERATE NRG Blood hypochromia detection by light microscopy MO DERATE NRG Blood microcytes detection by light microscopy [facility] Blood bin cells detection by light microscopy [facility] Blood dacrocytes detection by light microscopy [facility] Blood spherocytes detection by light microscopy [facility] - 05/22/19 04:08 PROCALCITONIN (PCT) 1.00 ng/mL <0.10 Capillary blood glucose measurement by g lucometer (mass/volume) - 05/22/19 04:17 Capillary blood glucose measurement by glucometer (mas s/volume) 125 mg/dL 70-110 Capillary blood glucose measurement by g lucometer (mass/volume) - 05/22/19 06:17 Capillary blood glucose measurement by glucometer (mas s/volume) 113 mg/dL 70-110 Capillary blood glucose measurement by g lucometer (mass/volume) - 05/22/19 08:29 Capillary blood glucose measurement by glucometer (mas s/volume) 116 mg/dL 70-110 Capillary blood glucose measurement by g lucometer (mass/volume) - 05/22/19 10:20 Capillary blood glucose measurement by glucometer (mas s/volume) 115 mg/dL 70-110 Complete urinalysis with reflex to cultu re - 05/22/19 10:20 Urine color determination YELLOW NRG Urine clarity determination SL CLOUDY N RG Urine pH measurement by test strip 6.5 5-9 Specific gravity of urine by test strip 1.010 1.016-1.022 Urine protein assay by test strip, semi-quantitative NEGATIVE NEGATIVE Urine glucose detection by automated test strip NE GATIVE NEGATIVE Erythrocytes detection in urine sediment by light micr oscopy NEGATIVE NEGATIVE Urine ketones detection by automated test strip NE GATIVE NEGATIVE Urine nitrite detection by test strip NEGATIVE NEGATIVE Urine total bilirubin detection by test strip NEGA TIVE NEGATIVE Urine urobilinogen measurement by automated test strip (mass/volume) 1.0 mg/dL < = 1.0 Urine leukocyte esterase detection by dipstick NEG ATIVE NEGATIVE Automated urine sediment erythrocyte cou nt by microscopy (number/high power field) NONE NRG Automated urine sediment leukocyte count by microscopy (number/high power field) NONE NRG Bacteria detection in urine sediment by light microsco py NEGATIVE NRG Squamous epithelial cells detection in u rine sediment by light microscopy NONE NRG Crystals detection in urine sediment by light microsco py NONE NRG Casts detection in urine sediment by light microscopy NONE NRG Mucus detection in urine sediment by light microscopy NEGATIVE NRG Complete urinalysis with reflex to culture NO NRG Capillary blood glucose measurement by g lucometer (mass/volume) - 05/22/19 12:43 Capillary blood glucose measurement by glucometer (mas s/volume) 109 mg/dL 70-110 Capillary blood glucose measurement by g lucometer (mass/volume) - 05/22/19 14:23 Capillary blood glucose measurement by glucometer (mas s/volume) 129 mg/dL 70-110 Capillary blood glucose measurement by g lucometer (mass/volume) - 05/22/19 16:01 Capillary blood glucose measurement by glucometer (mas s/volume) 128 mg/dL 70-110 Capillary blood glucose measurement by g lucometer (mass/volume) - 05/22/19 18:09 Capillary blood glucose measurement by glucometer (mas s/volume) 137 mg/dL 70-110 Capillary blood glucose measurement by g lucometer (mass/volume) - 05/22/19 19:56 Capillary blood glucose measurement by glucometer (mas s/volume) 154 mg/dL 70-110 Capillary blood glucose measurement by g lucometer (mass/volume) - 05/22/19 22:04 Capillary blood glucose measurement by glucometer (mas s/volume) 141 mg/dL 70-110 Capillary blood glucose measurement by g lucometer (mass/volume) - 05/23/19 00:01 Capillary blood glucose measurement by glucometer (mas s/volume) 138 mg/dL 70-110 Capillary blood glucose measurement by g lucometer (mass/volume) - 05/23/19 02:03 Capillary blood glucose measurement by glucometer (mas s/volume) 124 mg/dL 70-110 Capillary blood glucose measurement by g lucometer (mass/volume) - 05/23/19 04:09 Capillary blood glucose measurement by glucometer (mas s/volume) 108 mg/dL 70-110 Complete blood count (CBC) with automate d white blood cell (WBC) differential - 05/23/19 05:03 Blood leukocytes automated count (number/volume) 15.4 10*3/uL 4.3-11.0 Blood erythrocytes automated count (number/volume) 4.06 10*6/uL 4.35-5.85 Venous blood hemoglobin measurement (mass/volume) 8.7 g/dL 13.3-17.7 Blood hematocrit (volume fraction) 29 % 40-54 Automated erythrocyte mean corpuscular volume 71 [ foz_us] 80-99 Automated erythrocyte mean corpuscular h emoglobin (mass per erythrocyte) 21 pg 25-34 Automated erythrocyte mean corpuscular h emoglobin concentration measurement (mass/volume) 30 g/dL 32-36 Automated erythrocyte distribution width ratio TNP 10.0- 14.5 Automated blood platelet count (count/volume) 330 10*3/uL 130-400 Automated blood platelet mean volume measurement [employer] 7.4- 10.4 Automated blood neutrophils/100 leukocytes 81 % 42-75 Automated blood lymphocytes/100 leukocytes 9 % 12-44 Blood monocytes/100 leukocytes 9 % 0-12 Automated blood eosinophils/100 leukocytes 1 % 0-10 Automated blood basophils/100 leukocytes 0 % 0-10 Blood neutrophils automated count (number/volume) 12.5 10*3 1.8-7.8 Blood lymphocytes automated count (number/volume) 1.4 10*3 1.0-4.0 Blood monocytes automated count (number/volume) 1. 3 10*3 0.0-1.0 Automated eosinophil count 0.2 10*3/uL 0 .0-0.3 Automated blood basophil count (count/volume) 0.0 10*3/uL 0.0-0.1 Whole blood basic metabolic panel - 10/04 05:03 Serum or plasma sodium measurement (moles/volume) 137 mmol/L 135-145 Serum or plasma potassium measurement (moles/volume) 3.6 mmol/L 3.6-5.0 Serum or plasma chloride measurement (moles/volume) 103 mmol/L 98-107 Carbon dioxide 23 mmol/L 21-32 Serum or plasma anion gap determination (moles/volume) 11 mmol/L 5-14 Serum or plasma urea nitrogen measurement (mass/volume ) 12 mg/dL 7-18 Serum or plasma creatinine measurement (mass/volume) 1.03 mg/dL 0.60-1.30 Serum or plasma urea nitrogen/creatinine mass ratio 12 NRG Serum or plasma creatinine measurement w ith calculation of estimated glomerular filtration rate > NRG Serum or plasma glucose measurement (mass/volume) 94 mg/dL 70-105 Serum or plasma calcium measurement (mass/volume) 8.4 mg/dL 8.5-10.1 Serum or plasma phosphate measurement (m ass/volume) - 05/23/19 05:03 Serum or plasma phosphate measurement (mass/volume) 3.3 mg/dL 2.3-4.7 Magnesium - 05/23/19 05:03 Magnesium 1.9 mg/dL 1.6-2.4 Capillary blood glucose measurement by g lucometer (mass/volume) - 05/23/19 06:10 Capillary blood glucose measurement by glucometer (mas s/volume) 111 mg/dL 70-110 Capillary blood glucose measurement by g lucometer (mass/volume) - 05/23/19 08:01 Capillary blood glucose measurement by glucometer (mas s/volume) 99 mg/dL 70-110 Encounters ACCT No. Visit Date/Time Discharge Status Pt. Type Provider Facility Loc./Unit Complaint [id number] 08/01/2018 08:30:00 019 23:59:59 CLS Outpatient INGE SILVESTRE DO [facility] RAD THYROID NODULE [id number] 06/27/2018 13:57:00 019 23:59:59 CLS Outpatient ANAMIKA SCHAEFFER [facility] RAD CHF [id number] 06/24/2018 12:27:00 23:59:59 CLS Preadmit MARVIN SCHAEFFER [facility] RAD CARTOID ARTERY STENOSIS [id number] 06/24/2018 08:38:00 23:59:59 CLS Preadmit MARVIN SCHAEFFER [facility] RAD CHF [id number] 03/28/2018 10:30:00 019 10:00:00 DIS Inpatient GRISELDA SANTOS DO [facility] IRF CVA [id number] 04/02/2018 08:05:00 23:59:59 CLS Outpatient TAYLOR BROWN MD [facility] CATH LEFT CVA [id number] 03/27/2018 12:32:00 019 10:30:00 DIS Inpatient DANIELLE DE LA VEGA GRISELDA [facility] 4TH ACUTE CVA ; R HEMIPARES IS [id number] 06/17/2017 08:36:00 018 23:59:59 CLS Outpatient INGE SILVESTRE DO [facility] RT DYSPNEA [id number] 06/04/2017 13:37:00 018 23:59:59 CLS Preadmit MUNIRA OROZCO MD [facility] RT DYSPNEA [id number] 05/22/2017 12:18:00 018 23:59:59 CLS Outpatient INGE SILVESTRE DO [facility] RAD [id number] 05/17/2016 12:30:00 017 23:59:59 CLS Outpatient TAYLOR BROWN MD [facility] CARD CAD,CHF,COPD,PAF [id number] 09/02/2015 11:37:00 016 12:45:00 DIS Outpatient THOMAS DURAN MD [facility] CR STENT [id number] 08/19/2015 13:59:00 016 00:01:00 DIS Outpatient THOMAS DURAN MD [facility] CR STENT [id number] 04/13/2015 08:59:00 016 23:59:59 CLS Outpatient TAYLOR BROWN MD [facility] CATH ABNORMAL STRESS TEST,CAD,PAF,HTN,HLP,DM [id number] 04/06/2015 07:55:00 016 23:59:59 CLS Outpatient ANAMIKA SCHAEFFER [facility] CARD CAD,FLIP,PAF ,PULMONARY HTN [id number] 10/01/2014 08:07:00 015 23:59:59 CLS Outpatient ANAMIKA SCHAEFFER [facility] CARD CAD CHF CAR OTID ARTERY STENOSIS AFIB [id number] 08/27/2014 09:22:00 015 23:59:59 CLS Outpatient DARIELA HELLER [facility] LAB ABNORMAL CBC/EL EVATED WBC [id number] 04/30/2013 09:58:00 014 23:59:59 CLS Outpatient ANAMIKA SCHAEFFER [facility] 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
[2019-05-23] MEDS: PANTOPRAZOLE 40 MG (PROTONIX) VIAL IV SCH ×2 (09:37→21:38)
[2019-05-23] MEDS: DIGOXIN 0.125 MG (LANOXIN) TAB PO SCH (09:37)
[2019-05-23] MEDS: AMIODARONE 200 MG (CORDARONE) TAB PO SCH (09:37)
[2019-05-23] MEDS: FUROSEMIDE 40 MG (LASIX) TAB PO SCH (09:37)
[2019-05-23 11:00] VITALS: BP 105/50
--- NOTE | 2019-05-23 11:18 | Progress Note - Surgery ---
[facility] 05/23/19 1118: Subjective Date Seen by a Provider: May 23, 2019 Time Seen by a Provider: 09:31 Subjective/Events-last exam Mr. Payne's only complaint today was about eating, he was told by Dr. Jamil that he is on a 72 hour fast and will be able to eat possibly tomorrow. He was given the option to be placed on a liquid diet but decide to wait it out the fast until he could have solid food. He has no other complaints at time of interview. Review of Systems HEENT: No Head Aches, No Visual Changes, No Dysphasia Pulmonary: No Dyspnea, No Cough Cardiovascular: No: Chest Pain, Palpitations, Lt Headedness Gastrointestinal: No: Nausea, Vomiting, Abdominal Pain, Diarrhea, Constipation Focused Exam Respiratory: Chest Non Tender, Lungs Clear, Normal Breath Sounds, No Accessory Muscle Use, No Respiratory Distress Cardiovascular: Regular Rate, Rhythm, No Edema, No Gallop, No Murmur, Normal Peripheral Pulses Peripheral Pulses: 2+ Dorsalis Pedis (R), 2+ Left Dors-Pedis (L), 2+ Radial Pu lses (R), 2+ Radial Pulses (L) Skin: normal color, warm/dry Objective Exam Vital Signs Date Time Temp Pulse Resp B/P (MAP) Pulse Ox O2 Delivery O2 Flow Rate FiO2 05/23/19 11:00 36.8 62 18 105/50 (68) 95 Room Air 05/23/19 09:00 95 Room Air 05/23/19 07:41 37.1 62 20 101/56 (71) 93 Room Air 05/23/19 07:00 70 05/23/19 04:00 37.8 68 22 124/51 (75) 93 Room Air 05/23/19 01:00 62 05/23/19 00:00 37.0 63 20 113/62 (79) 92 Room Air 05/22/19 20:00 95 Room Air 05/22/19 20:00 37.2 69 18 125/62 (83) 95 Room Air 05/22/19 19:00 64 05/22/19 16:00 37.2 67 20 107/61 (76) 90 Room Air 05/22/19 12:38 65 05/22/19 12:00 37.1 67 18 110/54 (72) 90 Room Air I & O 05/23/19 07:00 Intake Total 240 ml Output Total 1275 ml Balance -1035 ml Capillary Refill : Less Than 3 Seconds General Appearance: No Apparent Distress HEENT: PERRL/EOMI Neck: Normal Inspection Respiratory: Lungs Clear, Normal Breath Sounds, No Respiratory Distress Cardiovascular: Regular Rate, Rhythm, No Edema, No Gallop, No Murmur, Normal Peripheral Pulses Peripheral Pulses: 2+ Dorsalis Pedis (R), 2+ Left Dors-Pedis (L), 2+ Radial Pulses (R), 2+ Radial Pulses (L) Gastrointestinal: normal bowel sounds, non tender, soft, no organomegaly, no p ulsatile mass; No distended, No guarding, No rebound Extremity: Normal Inspection, Non Tender, No Calf Tenderness, No Pedal Edema Neurologic/Psychiatric: Alert, Oriented x3, Normal Mood/Affect Skin: Normal Color, Warm/Dry Lymphatic: No Adenopathy Results Lab Laboratory Tests 05/22/19 12:43: Glucometer 109 05/22/19 14:23: Glucometer 129H 05/22/19 16:01: Glucometer 128H 05/22/19 18:09: Glucometer 137H 05/22/19 19:56: Glucometer 154H 05/22/19 22:04: Glucometer 141H 05/23/19 00:01: Glucometer 138H 05/23/19 02:03: Glucometer 124H 05/23/19 04:09: Glucometer 108 05/23/19 05:03: White Blood Count 15.4H, Red Blood Count 4.06L, Hemoglobin 8.7L, Hematocrit 29L, Mean Corpuscular Volume 71L, Mean Corpuscular Hemoglobin 21L, Mean Corpuscular Hemoglobin Concent 30L, Red Cell Distribution Width , Platelet Count 330, Mean Platelet Volume , Neutrophils (%) (Auto) 81H, Lymphocytes (%) (Auto) 9L, Monocytes (%) (Auto) 9, Eosinophils (%) (Auto) 1, Basophils (%) (Auto) 0, Neutrophils # (Auto) 12.5H, Lymphocytes # (Auto) 1.4, Monocytes # (Auto) 1.3H, Eosinophils # (Auto) 0.2, Basophils # (Auto) 0.0, Sodium Level 137, Potassium Level 3.6, Chloride Level 103, Carbon Dioxide Level 23, Anion Gap 11, Blood Urea Nitrogen 12, Creatinine 1.03, Estimat Glomerular Filtration Rate > 60, BUN/Creatinine Ratio 12, Glucose Level 94, Calcium Level 8.4L, Phosphorus Level 3.3, Magnesium Level 1.9 05/23/19 06:10: Glucometer 111H 05/23/19 08:01: Glucometer 99 05/23/19 10:04: Glucometer 104 Assessment/Plan Assessment/Plan Assessment/Plan Anemia: - Continue to monitor CBC - Wait for result of colonoscopy biopsy Hypoglycemic: - 72 hour fast - Normal Diet after conclusion - Serial Blood Glucose level Clinical Quality Measures DVT/VTE Risk/Contraindication: Risk Factor Score Per Nursin RFS Level Per Nursing on Admit: 4+=Very High Other: LOW HGB OF [facility]HE[facility] PHILLIP EDGAR LOPEZ DO 05/23/19 1157: Subjective Time Seen by a Provider: 09:31 Subjective/Events-last exam Pt seen and examined, states mild abdominal pain; mostly he just wants to eat. Objective Exam General Appearance: No Apparent Distress, WD/WN HEENT: PERRL/EOMI, Moist Mucous Membranes Respiratory: Lungs Clear, Normal Breath Sounds, No Respiratory Distress Cardiovascular: Regular Rate, Rhythm, No Murmur Gastrointestinal: soft, tenderness (mild in lower quadrants) Skin: Warm/Dry, Pallor (mild) Lymphatic: No Adenopathy (neck, axilla or groin) Assessment/Plan Assessment/Plan Assessment/Plan Colon Mass/Ulceration seen during Colonoscopy - await final pathology diagnosis. However pt will probably need colon resection no matter what because of this mass and the fact it is most likely the cause of anemia. Supervisory-Addendum Brief Verification & Attestation Participated in pt care: history, MDM, physical Personally performed: exam, history, MDM Care discussed with: Medical Student Procedures: n/a Verification and Attestation of Medical Student E/M Service A medical student performed and documented this service in my presence. I reviewed and verified all information documented by the medical student and made modifications to such information, when appropriate. I personally performed the physical exam and medical decision making. Edgar Lopez, May 23, 2019,11:57 [facility] May 23, 2019 11:18 EDGAR LOPEZ DO May 23, 2019 11:57
--- NOTE | 2019-05-23 11:29 | Progress Note - Hospitalist ---
Subjective HPI/CC On Admission Date Seen by Provider: May 23, 2019 Time Seen by Provider: 09:20 John Payne is a 79-year-old male with past medical history of hypertension, hyperlipidemia, atrial fibrillation, heart failure with reduced ejection fraction, who presented to Dr. Owen's office with weakness. Further lab evaluation revealed a that he had a hemoglobin of 4.8 and he was directly admitted to [facility] [place]. He reports that he is been having lightheadedness and dizziness. He denies any chest pain or shortness of breath. He denies any hematochezia, melena, hematemesis, hematuria, or other visible blood loss. He reports that he has had a colonoscopy but is not sure when that was done. He lives at an assisted living facility. Subjective/Events-last exam He reports no new complaints or concerns this morning. He says he feels hungry. He denies any fevers, chills, chest pain, shortness of breath, cough, abdominal pain, nausea, vomiting, or diarrhea. Objective Exam Vital Signs Vital Signs Date Time Temp Pulse Resp B/P (MAP) Pulse Ox O2 Delivery O2 Flow Rate FiO2 05/23/19 11:00 36.8 62 18 105/50 (68) 95 Room Air 05/21/19 12:30 6 Capillary Refill : Less Than 3 Seconds General Appearance: No Apparent Distress, WD/WN Neck: Normal Inspection, Supple Respiratory: Lungs Clear, Normal Breath Sounds, No Respiratory Distress Cardiovascular: Regular Rate, Rhythm, No Edema, No Murmur Gastrointestinal: Normal Bowel Sounds, Non Tender, Soft Extremity: Normal Inspection, Non Tender, No Pedal Edema Neurologic/Psychiatric: Alert, Oriented x3, No Motor/Sensory Deficits, Normal Mood/Affect Skin: Normal Color, Warm/Dry Results/Procedures Lab Laboratory Tests 05/23/19 05:03 Patient resulted labs reviewed. Imaging: Reviewed Imaging Report Assessment/Plan Assessment and Plan Assess & Plan/Chief Complaint Pneumonia WBC improving, remains afebrile Chest x-ray with possible right lower lobe infiltrate blood cultures drawn Repeat procalcitonin tomorrow Continue Zosyn Hypoglycemia Nondiabetic Perform 72 hour fast If his blood sugar drops below 50, obtain plasma glucose, insulin, proinsulin, and C-peptide levels stat prior to treating hypoglycemia D50 ordered as needed after her labs drawn After labs drawn, resume general diet and D10 at 50 ml/hour If remains normoglycemic, will end fast tomorrow Symptomatic anemia Acute blood loss anemia Colonic ulceration Hemoglobin stable Status post 4 units PRBC this hospitalization Surgery consulted, performed endoscopies today colonoscopy revealed right-sided colon ulcer which was biopsied Chronic atrial fibrillation Continue Eliquis Continue amiodarone and digoxin Heart failure with reduced ejection fraction continue Lasix, hold spironolactone Resume low-dose ADARSH inhibitor and beta jarret DVT prophylaxis: Already receiving therapeutic anticoagulation Diagnosis/Problems Diagnosis/Problems (1) Symptomatic anemia Status: Acute (2) Non-diabetic hypoglycemia Status: Acute (3) Leukocytosis Status: Acute (4) Pneumonia Status: Acute Qualifiers: Pneumonia type: due to unspecified organism Laterality: right Lung location: lower lobe of lung Qualified Codes: J18.1 - Lobar pneumonia, unspecified organism Clinical Quality Measures DVT/VTE Risk/Contraindication: Risk Factor Score Per Nursin RFS Level Per Nursing on Admit: 4+=Very High Other: LOW HGB OF [place] MARILY GALEANA MD May 23, 2019 11:29
[2019-05-23] MEDS ORDERED: APIXABAN 5 MG (ELIQUIS) TABLET PO ONE (11:30)
[2019-05-23 16:00] VITALS: BP 99/48
[2019-05-23 20:00] VITALS: BP 93/47
[2019-05-23] MEDS: CARVEDILOL 6.25 MG (COREG) TAB PO SCH (21:30)
[2019-05-23] MEDS: APIXABAN 5 MG (ELIQUIS) TABLET PO SCH (21:33)
[2019-05-23] MEDS: METHIMAZOLE TABLET 5 MG TABLET PO SCH (21:33)
[2019-05-24 00:05] VITALS: BP 114/53
[2019-05-24] MEDS: PIPERACILLIN/TAZOBACTAM (BULK) 4.5 GM in NS (IVPB) 100 ML IV SCH ×2 (03:18→11:04)
[2019-05-24 04:05] VITALS: BP 111/55
[2019-05-24 04:59] LABS: BASOPHILS % (AUTO) 0 % (0-10); EOSINOPHILS # (AUTO) 0.3 10^3/uL (0.0-0.3); EOSINOPHILS % (AUTO) 2 % (0-10); HEMATOCRIT 31 % (40-54); HEMOGLOBIN 9.6 G/DL (13.3-17.7); LYMPHOCYTES # (AUTO) 1.2 X 10^3 (1.0-4.0); LYMPHOCYTES % (AUTO) 9 % (12-44); MEAN CORPUSCULAR HEMOGLOBIN 22 PG (25-34); MEAN CORPUSCULAR HGB CONC 31 G/DL (32-36); MEAN CORPUSCULAR VOLUME 71 FL (80-99); MONOCYTES % (AUTO) 8 % (0-12); NEUTROPHILS # (AUTO) 10.7 X 10^3 (1.8-7.8); NEUTROPHILS % (AUTO) 81 % (42-75); PLATELET COUNT 376 10^3/uL (130-400); WHITE BLOOD COUNT 13.2 10^3/uL (4.3-11.0)
[2019-05-24 05:26] LABS: BUN/CREATININE RATIO 12; CALCIUM 8.4 MG/DL (8.5-10.1); CARBON DIOXIDE 24 MMOL/L (21-32); CHLORIDE 102 MMOL/L (98-107); CREATININE SERUM 1.11 MG/DL (0.60-1.30); GFR ESTIMATED > 60; GLUCOSE 100 MG/DL (70-105); POTASSIUM 3.2 MMOL/L (3.6-5.0); SODIUM 138 MMOL/L (135-145)
[2019-05-24 08:03] VITALS: BP 114/56
[2019-05-24] MEDS: PANTOPRAZOLE 40 MG (PROTONIX) VIAL IV SCH ×2 (08:48→22:23)
[2019-05-24] MEDS: CARVEDILOL 6.25 MG (COREG) TAB PO SCH ×2 (08:49→21:00)
[2019-05-24] MEDS: DIGOXIN 0.125 MG (LANOXIN) TAB PO SCH (08:49)
[2019-05-24] MEDS: APIXABAN 5 MG (ELIQUIS) TABLET PO SCH ×2 (08:49→22:23)
[2019-05-24] MEDS: FUROSEMIDE 40 MG (LASIX) TAB PO SCH (08:49)
[2019-05-24] MEDS: ENALAPRIL 2.5 MG (VASOTEC) TAB PO SCH (08:49)
[2019-05-24] MEDS: AMIODARONE 200 MG (CORDARONE) TAB PO SCH (08:49)
--- NOTE | 2019-05-24 10:04 | Progress Note - Surgery ---
[facility] 05/24/19 1004: Subjective Date Seen by a Provider: May 24, 2019 Time Seen by a Provider: 09:15 Subjective/Events-last exam Patient has no other complaints other than waiting to eat at 2 pm today. States he is having some hunger pains and mild weakness due to the lack of solid food intake. Review of Systems General: No Night Sweats; Fatigue (mild from the lack of food ) HEENT: No Head Aches, No Visual Changes, No Dysphasia, No Sore Throat Pulmonary: No Dyspnea, No Cough, No Pleuritic Chest Pain Cardiovascular: No: Chest Pain, Palpitations, Lt Headedness Gastrointestinal: Abdominal Pain (hunger pains ); No: Nausea, Vomiting, Diarrhea, Constipation Genitourinary: No Dysuria, No Frequency, No Hematuria Musculoskeletal: No: neck pain, back pain, leg pain Neurological: Weakness (Right UE and LE due to stroke last march ); No: Numbness Focused Exam Respiratory: Lungs Clear, Normal Breath Sounds, No Accessory Muscle Use, No Respiratory Distress Cardiovascular: Regular Rate, Rhythm, No Edema, No Gallop, No Murmur, Normal Peripheral Pulses Peripheral Pulses: 2+ Carotid (R), 2+ Carotid (L), 2+ Dorsalis Pedis (R), 2+ Left Dors-Pedis (L), 2+ Radial Pulses (R), 2+ Radial Pulses (L) Skin: normal color, warm/dry Objective Exam Vital Signs Date Time Temp Pulse Resp B/P (MAP) Pulse Ox O2 Delivery O2 Flow Rate FiO2 05/24/19 08:03 36.9 64 18 114/56 (75) 95 Room Air 05/24/19 04:05 36.6 64 20 111/55 (73) 93 Room Air 05/24/19 00:05 36.3 64 18 114/53 (73) 94 Room Air 05/23/19 20:00 35.8 62 19 93/47 (62) 95 Room Air 05/23/19 20:00 Room Air 05/23/19 16:00 35.8 60 18 99/48 (65) 92 Room Air 05/23/19 12:24 63 05/23/19 11:00 36.8 62 18 105/50 (68) 95 Room Air I & O 05/24/19 07:00 Intake Total 410 ml Output Total 1650 ml Balance -1240 ml Capillary Refill : Less Than 3 Seconds General Appearance: No Apparent Distress, WD/WN HEENT: PERRL/EOMI, Moist Mucous Membranes Neck: Normal Inspection, Supple Respiratory: Lungs Clear, Normal Breath Sounds, No Accessory Muscle Use, No Respiratory Distress Cardiovascular: Regular Rate, Rhythm, No Edema, No Gallop, No Murmur, Normal Peripheral Pulses Peripheral Pulses: 2+ Carotid (R), 2+ Carotid (L), 2+ Dorsalis Pedis (R), 2+ Left Dors-Pedis (L), 2+ Radial Pulses (R), 2+ Radial Pulses (L) Gastrointestinal: normal bowel sounds, soft, no organomegaly, no pulsatile mass, tenderness (mild in lower quadrants) Extremity: Normal Capillary Refill, Normal Inspection, Non Tender, No Calf Tenderness, No Pedal Edema Neurologic/Psychiatric: Alert, Oriented x3, No Motor/Sensory Deficits, Normal Mood/Affect Skin: Normal Color, Warm/Dry, Pallor (mild) Results Lab Laboratory Tests 05/23/19 10:04: Glucometer 104 05/23/19 12:06: Glucometer 107 05/23/19 14:15: Glucometer 115H 05/23/19 15:55: Glucometer 123H 05/23/19 17:56: Glucometer 139H 05/23/19 20:02: Glucometer 131H 05/23/19 22:09: Glucometer 135H 05/24/19 00:06: Glucometer 112H 05/24/19 01:52: Glucometer 117H 05/24/19 04:04: Glucometer 105 05/24/19 04:21: White Blood Count 13.2H, Red Blood Count 4.41, Hemoglobin 9.6L, Hematocrit 31L, Mean Corpuscular Volume 71L, Mean Corpuscular Hemoglobin 22L, Mean Corpuscular Hemoglobin Concent 31L, Red Cell Distribution Width , Platelet Count 376, Mean Platelet Volume , Neutrophils (%) (Auto) 81H, Lymphocytes (%) (Auto) 9L, Monocytes (%) (Auto) 8, Eosinophils (%) (Auto) 2, Basophils (%) (Auto) 0, Neutrophils # (Auto) 10.7H, Lymphocytes # (Auto) 1.2, Monocytes # (Auto) 1.0, Eosinophils # (Auto) 0.3, Basophils # (Auto) 0.0, Sodium Level 138, Potassium Level 3.2L, Chloride Level 102, Carbon Dioxide Level 24, Anion Gap 12, Blood Urea Nitrogen 13, Creatinine 1.11, Estimat Glomerular Filtration Rate > 60, BUN/Creatinine Ratio 12, Glucose Level 100, Calcium Level 8.4L, Procalcitonin 0.56H 05/24/19 05:52: Glucometer 118H 05/24/19 08:01: Glucometer 98 Assessment/Plan Assessment/Plan Assessment/Plan Colon Mass/Ulceration seen during Colonoscopy - await final pathology diagnosis. However pt will probably need colon resection no matter what because of this mass and the fact it is most likely the cause of anemia. Hypoglycemia: - 72 hour fast ending today - Resume normal diet as tolerated Clinical Quality Measures DVT/VTE Risk/Contraindication: Risk Factor Score Per Nursin RFS Level Per Nursing on Admit: 4+=Very High Other: LOW HGB OF [place] OLIVER NATH DO 05/24/19 1342: Subjective Time Seen by a Provider: 12:58 Subjective/Events-last exam Pt seen and examined, no complaints just waiting to eat. Objective Exam General Appearance: No Apparent Distress, WD/WN HEENT: Moist Mucous Membranes Respiratory: Lungs Clear, Normal Breath Sounds, No Accessory Muscle Use Cardiovascular: Regular Rate, Rhythm, No Murmur Gastrointestinal: soft, tenderness (mild in lower quadrants) Assessment/Plan Assessment/Plan Assessment/Plan Colon Mass/Ulceration Hypoglycemia Plan to eat today, Dr. Villalobos will discuss next steps in treatment with pt tomorrow. Supervisory-Addendum Brief Verification & Attestation Participated in pt care: history, MDM, physical Personally performed: exam, history, MDM Care discussed with: Medical Student Procedures: n/a Verification and Attestation of Medical Student E/M Service A medical student performed and documented this service. I then reviewed and verified all information documented by the medical student and made modifications to such information, when appropriate. I personally performed a physical exam, medical decision making and then discussed any differences be tween the notes and made revisions as necessary to create one note. Oliver Lopez , 05/24/19 , 13:42 [facility] May 24, 2019 10:04 OLIVER LOPEZ DO May 24, 2019 13:42
--- NOTE | 2019-05-24 11:54 | Progress Note - Hospitalist ---
Subjective HPI/CC On Admission Date Seen by Provider: May 24, 2019 Time Seen by Provider: 10:25 John Payne is a 79-year-old male with past medical history of hypertension, hyperlipidemia, atrial fibrillation, heart failure with reduced ejection fraction, who presented to Dr. Owen's office with weakness. Further lab evaluation revealed a that he had a hemoglobin of 4.8 and he was directly admitted to [facility]. He reports that he is been having lightheadedness and dizziness. He denies any chest pain or shortness of breath. He denies any hematochezia, melena, hematemesis, hematuria, or other visible blood loss. He reports that he has had a colonoscopy but is not sure when that was done. He lives at an assisted living facility. Subjective/Events-last exam He has no new complaints or concerns. He is happy that he has his coffee this morning. He denies any lightheadedness or dizziness. He denies any hematochezia or melena. He denies any fevers or chills. He denies any shortness of breath or cough. He denies any abdominal pain, nausea, or vomiting. Objective Exam Vital Signs Vital Signs Date Time Temp Pulse Resp B/P (MAP) Pulse Ox O2 Delivery O2 Flow Rate FiO2 05/24/19 09:00 Room Air 05/24/19 08:03 36.9 64 18 114/56 (75) 95 05/21/19 12:30 6 Capillary Refill : Less Than 3 Seconds General Appearance: No Apparent Distress, WD/WN Respiratory: Lungs Clear, Normal Breath Sounds, No Respiratory Distress Cardiovascular: Regular Rate, Rhythm, No Edema, No Murmur Gastrointestinal: Normal Bowel Sounds, Non Tender, Soft Extremity: Normal Inspection, Non Tender, No Pedal Edema Neurologic/Psychiatric: Alert, Oriented x3, Normal Mood/Affect, Aphasia, Motor Weakness Skin: Normal Color, Warm/Dry Results/Procedures Lab Laboratory Tests 05/24/19 04:21 Patient resulted labs reviewed. Assessment/Plan Assessment and Plan Assess & Plan/Chief Complaint Pneumonia Transition to Omnicef Hypoglycemia Resolved, unclear etiology 72 hour fast negative Resume general diet Continue Accu-Cheks before meals at bedtime Symptomatic anemia Acute blood loss anemia Colonic ulceration Hemoglobin stable Status post 4 units PRBC this hospitalization Surgery consulted, performed endoscopies today colonoscopy revealed right-sided colon ulcer which was biopsied Chronic atrial fibrillation Continue Eliquis Continue amiodarone and digoxin Heart failure with reduced ejection fraction continue diuretics Continue low-dose ADARSH inhibitor and beta jarret DVT prophylaxis: Already receiving therapeutic anticoagulation Diagnosis/Problems Diagnosis/Problems (1) Symptomatic anemia Status: Acute (2) Non-diabetic hypoglycemia Status: Resolved Resolution Date/Time: 05/24/19 @ 11:53 (3) Leukocytosis Status: Resolved (4) Pneumonia Status: Acute Qualifiers: Pneumonia type: due to unspecified organism Laterality: right Lung location: lower lobe of lung Qualified Codes: J18.1 - Lobar pneumonia, un specified organism Clinical Quality Measures DVT/VTE Risk/Contraindication: Risk Factor Score Per Nursin RFS Level Per Nursing on Admit: 4+=Very High Other: LOW HGB OF [facility] MARILY GALEANA MD May 24, 2019 11:54
[2019-05-24] MEDS ORDERED: CEFDINIR 300 MG (OMNICEF) CAP PO ONE (12:00)
[2019-05-24 12:05] VITALS: BP 126/59
[2019-05-24 16:00] VITALS: BP 91/49
[2019-05-24 19:47] VITALS: BP 96/47
[2019-05-24] MEDS: CEFDINIR 300 MG (OMNICEF) CAP PO SCH (22:23)
[2019-05-24] MEDS: METHIMAZOLE TABLET 5 MG TABLET PO SCH (22:24)
[2019-05-25 00:05] VITALS: BP 122/66
[2019-05-25 04:05] VITALS: BP 123/58
[2019-05-25 05:21] LABS: BASOPHILS % (AUTO) 0 % (0-10); EOSINOPHILS # (AUTO) 0.4 10^3/uL (0.0-0.3); EOSINOPHILS % (AUTO) 4 % (0-10); HEMATOCRIT 31 % (40-54); HEMOGLOBIN 9.3 G/DL (13.3-17.7); LYMPHOCYTES # (AUTO) 1.6 X 10^3 (1.0-4.0); LYMPHOCYTES % (AUTO) 17 % (12-44); MEAN CORPUSCULAR HEMOGLOBIN 21 PG (25-34); MEAN CORPUSCULAR HGB CONC 30 G/DL (32-36); MEAN CORPUSCULAR VOLUME 72 FL (80-99); MONOCYTES % (AUTO) 11 % (0-12); NEUTROPHILS # (AUTO) 6.6 X 10^3 (1.8-7.8); NEUTROPHILS % (AUTO) 69 % (42-75); PLATELET COUNT 391 10^3/uL (130-400); WHITE BLOOD COUNT 9.6 10^3/uL (4.3-11.0)
[2019-05-25 05:51] LABS: BUN/CREATININE RATIO 12; CALCIUM 8.5 MG/DL (8.5-10.1); CARBON DIOXIDE 24 MMOL/L (21-32); CHLORIDE 102 MMOL/L (98-107); CREATININE SERUM 1.12 MG/DL (0.60-1.30); GFR ESTIMATED > 60; GLUCOSE 128 MG/DL (70-105); MAGNESIUM 2.1 MG/DL (1.6-2.4); POTASSIUM 3.2 MMOL/L (3.6-5.0); SODIUM 137 MMOL/L (135-145)
[2019-05-25] MEDS: FUROSEMIDE 40 MG (LASIX) TAB PO SCH (07:48)
[2019-05-25] MEDS: CEFDINIR 300 MG (OMNICEF) CAP PO SCH (07:48)
[2019-05-25] MEDS: CARVEDILOL 6.25 MG (COREG) TAB PO SCH (07:49)
[2019-05-25] MEDS: APIXABAN 5 MG (ELIQUIS) TABLET PO SCH (07:49)
[2019-05-25] MEDS: DIGOXIN 0.125 MG (LANOXIN) TAB PO SCH (07:49)
[2019-05-25] MEDS: AMIODARONE 200 MG (CORDARONE) TAB PO SCH (07:49)
[2019-05-25] MEDS: ENALAPRIL 2.5 MG (VASOTEC) TAB PO SCH (07:49)
[2019-05-25] MEDS: PANTOPRAZOLE 40 MG (PROTONIX) VIAL IV SCH (07:50)
[2019-05-25 07:52] VITALS: BP 148/69
[2019-05-25] MEDS ORDERED: CEFD300C3 PO (09:55)
[2019-05-25] MEDS ORDERED: FERR325T18 PO (10:02)
--- NOTE | 2019-05-25 10:04 | Discharge Inst-Simple/Standard ---
Discharge Inst-Standard Reconcile Patient Problems Problems Reviewed?: Yes Discharge Medications New, Converted or Re-Newed RX: Transmitted to Pharmacy Patient Instructions/Follow Up Plan of Care/Instructions/FU: Please continue to take your medications as written. Please follow up with your PCP in the next week and Dr Villalobos as scheduled. Activity as Tolerated: Yes Discharge Diet: No Restrictions Return to The Hospital For: Bleeding, dark or red stools, shortness of breath, if you feel you are getting worse. ZACH MUNOZ MD May 25, 2019 10:04
--- NOTE | 2019-05-25 11:56 | NUR ---
"RD ASSESSMENT PMHx: HTN; HLD; afib; HFpEF; COPD; GERD; DM PT INTERACTION: Pt was awake and pleasant during nutrition assessment for LOS. Pt states current appetite is pretty good since he has been finished with his 72 hour fast. Note avg PO intake of 75% x2meal, per chart review. Pt states following a regular diet at home, and has no issues with chewing/swallowing food. Pt states no recent issues with n/v/c/d at this time. Note last BM was 05/23, and pt not currently on bowel regimen per chart review. Pt states some recent wt loss, but unsure of amount lost. Note unable to determine recent wt hx, per chart review. Pt states current DM control is pretty good, but unsure of his blood glucose readings. Note unable to determine recent HbA1c, per chart review. ABNORMAL NUTRITION-RELATED LAB VALUES LOW: K 3.2 HIGH: glu 128 Est. kcal needs: 0468-4153 kcal | 25-30 kcal/kg Est. Pro needs: 61-77 g Pro | 0.8-1.0 g Pro/kg PES STATEMENT: Given pt's PO intake, no nutrition diagnosis at this time (NO-1.1) INTERVENTION: Continue with current diet order of Regular diet. Pt may benefit from consistent CHO diet, if blood glucose levels become elevated. Will continue to follow and reassess as pt needs, intake and status change. MONITOR/EVALUATE: PO Intake; Plan of Care; Hydration Status; Weight Status; Lab Values Janessa Lopez, MS, RD, LD"
[2019-05-25 12:00] VITALS: BP 102/50
--- NOTE | 2019-05-25 14:40 | Discharge Summary ---
Diagnosis/Chief Complaint Date of Admission May 18, 2019 at 14:05 Date of Discharge Discharge Date: May 25, 2019 Admission Diagnosis symptomatic anemia Primary Care Tennille Linda MD Discharge Diagnosis (1) Symptomatic anemia Status: Acute (2) Non-diabetic hypoglycemia Status: Resolved (3) Leukocytosis Status: Resolved (4) Pneumonia Status: Acute Discharge Summary Discharge Physical Exam Allergies: Coded Allergies: No Known Drug Allergies (Verified , 05/21/19) Vitals & I&Os Vital Signs Date Time Temp Pulse Resp B/P (MAP) Pulse Ox O2 Delivery O2 Flow Rate FiO2 05/25/19 12:00 36.5 72 18 102/50 (67) 92 Room Air 05/21/19 12:30 6 General Appearance: No Apparent Distress, Chronically ill Cardiovascular: Regular Rate, Rhythm, No Murmur Gastrointestinal: Normal Bowel Sounds, Soft Neurologic/Psychiatric: Alert, Oriented x3 Hospital Course Pt is a 79yoCM with a 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 He was transfused 4 units of pRBCs and underwent EGD and colonoscopy. Biopsies were done and revealed colonic ulceration. At this time path is pending on his biopsies. His hemoglobin remained stable. He was started on iron for supplementation. He was also noted to have pneumonia while inpatient and was treated with Zosyn and Omnicef. He was discharged back to [facility] in stable condition. He is to follow up with Dr Villalobos. I spoke with Raul Deutsch APRN for Dr Linda regarding this hospital stay. Labs (last 24 hrs) Laboratory Tests 05/24/19 15:42: Glucometer 207H 05/24/19 20:32: Glucometer 201H 05/25/19 04:08: White Blood Count 9.6, Red Blood Count 4.38, Hemoglobin 9.3L, Hematocrit 31L, Mean Corpuscular Volume 72L, Mean Corpuscular Hemoglobin 21L, Mean Corpuscular Hemoglobin Concent 30L, Red Cell Distribution Width , Platelet Count 391, Mean Platelet Volume , Neutrophils (%) (Auto) 69, Lymphocytes (%) (Auto) 17, Monocytes (%) (Auto) 11, Eosinophils (%) (Auto) 4, Basophils (%) (Auto) 0, Neutrophils # (Auto) 6.6, Lymphocytes # (Auto) 1.6, Monocytes # (Auto) 1.0, Eosinophils # (Auto) 0.4H, Basophils # (Auto) 0.0, Sodium Level 137, Potassium Level 3.2L, Chloride Level 102, Carbon Dioxide Level 24, Anion Gap 11, Blood U stephanie Nitrogen 13, Creatinine 1.12, Estimat Glomerular Filtration Rate > 60, BUN/Creatinine Ratio 12, Glucose Level 128H, Calcium Level 8.5, Magnesium Level 2.1 05/25/19 10:48: Glucometer 322H Patient resulted labs reviewed. Pending Labs Laboratory Tests 05/25/19 10:48: Glucometer 322 Discussion & Recommendations Discharge Planning: >30 minutes discharge planning Discharge Home Medications: Active Scripts Active Ferrous Sulfate 325 Mg Tablet 325 Mg PO Q48H Cefdinir 300 Mg Capsule 300 Mg PO BID Eliquis (Apixaban) 5 Mg Tablet 5 Mg PO BID Reported Systane Balance (Propylene Glycol) 10 Ml Drops 1 Drop OU Q12H PRN Spironolactone 25 Mg Tablet 25 Mg PO DAILY Amiodarone HCl 200 Mg Tablet 200 Mg PO DAILY Vitamin D3 (Cholecalciferol (Vitamin D3)) 50 Mcg Capsule 50 Mcg PO DAILY Lipitor (Atorvastatin Calcium) 80 Mg Tablet 80 Mg PO DAILY Omeprazole 20 Mg Capsule.dr 20 Mg PO DAILY Enalapril Maleate 2.5 Mg Tablet 2.5 Mg PO DAILY Carvedilol 6.25 Mg Tablet 6.25 Mg PO BID HOLD FOR SYSTOLIC BLOOD PRESSURE <100 OR HR <50 - CALL NURSE Furosemide 40 Mg Tablet 40 Mg PO DAILY Digoxin 125 Mcg Tablet 125 Mcg PO DAILY Aspirin EC (Aspirin) 81 Mg Tablet.dr 81 Mg PO DAILY Methimazole 5 Mg Tablet 5 Mg PO DAILY Instructions to patient/family Please see electronic discharge instructions given to patient. Clinical Quality Measures DVT/VTE Risk/Contraindication: Risk Factor Score Per Nursin RFS Level Per Nursing on Admit: 4+=Very High Other: LOW HGB OF [place] Copy Copies To 1: TENNILLE LINDA MD Problem Qualifiers (1) Pneumonia: Pneumonia type: due to unspecified organism Laterality: right Lung location: lower lobe of lung Qualified Codes: J18.1 - Lobar pneumonia, unspecified organism ZACH MUNOZ MD May 25, 2019 14:40
[2019-05-25] MEDS ORDERED: IOHEXOL 350 MG/ML 100 ML (OMNIPAQUE 350) VIAL IV ONE (14:45)
[2019-05-25] MEDS ORDERED: NS 100 ML (IVPB) BAG IV ONE (14:45)
[2019-05-25] MEDS ORDERED: CATHETER FLUSH 10 ML SYR IV PRN (14:45)
[2019-05-25] MEDS ORDERED: HOLD METFORMIN - RECEIVED CONTRAST 20 ML VIAL IV SCH (14:45)
--- NOTE | 2019-05-25 15:40 | Diagnostic Imaging Report ---
PROCEDURE: CT chest with contrast, CT abdomen and pelvis with and without contrast. TECHNIQUE: Pre and post intravenous contrast axial imaging of the abdomen and pelvis and post contrast axial imaging of the chest were performed. Auto Exposure Controls were utilized during the CT exam to meet ALARA standards for radiation dose reduction. INDICATION: Patient is status post right-sided thoracentesis yesterday, now complaining of posterior lateral and anterior chest pain. COMPARISON: Correlation is made with prior CT chest from 03/28/2011. FINDINGS: CT chest: A left chest wall cardiac pacemaker is noted. No axillary lymphadenopathy is detected. No definite mediastinal or hilar lymphadenopathy is detected. No pericardial fluid is seen. There is trace right-sided pleural fluid. There is some minimal subsegmental atelectasis in the lung bases bilaterally. No pneumothorax is detected. Bony structures appear nonacute. IMPRESSION: Bibasilar subsegmental atelectasis. There is trace right pleural fluid. No pneumothorax is seen. CT abdomen and pelvis: Liver contains a tiny low density in the right lobe measuring 8 mm. This may represent a small cyst. There is a large stone within the gallbladder. No biliary ductal dilatation is seen. Pancreas and spleen are unremarkable. No adrenal mass is detected. The right kidney is unremarkable. There is a cortical low density in mid left kidney measuring 16 mm, likely a cyst. Aorta and iliac vessels are heavily calcified but non-aneurysmal. No central retroperitoneal or mesenteric lymphadenopathy is seen. The small and large bowel loops are normal caliber. There is no obstruction. There is no free fluid or fluid collection in the abdomen or pelvis. Bladder is unremarkable. Prostate is normal in size. No pelvic lymphadenopathy is seen. Bony structures are nonacute. IMPRESSION: 1. Cholelithiasis. 2. No acute feature in the abdomen or pelvis is identified. Dictated by: Dictated on workstation # [id number]
--- NOTE | 2019-05-25 15:51 | NUR ---
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 Medical records and discharge were faxed ([phone]) to the facility. The patient will return back to hospital for a colon resection on . No other needs at this time.
--- NOTE | 2019-05-25 15:58 | Progress Note - Surgery ---
[facility] 05/25/19 1558: Subjective Date Seen by a Provider: May 25, 2019 Time Seen by a Provider: 14:45 Subjective/Events-last exam Patient is alert and oriented and in no acute distress. No family at bedside. The results of the patient pathology was discussed with him via Dr. Villalobos Patient denies any pain at this time. Tolerating diet, having bowel movements and urinating without issue No questions or concerns at this time Patient denies the following: denies chest pain, palpitations, sob, cough, n/v the feeling of fever and chills, and abdominal pain. Review of Systems General: No Chills HEENT: No Visual Changes, No Eye Pain Pulmonary: No Dyspnea Cardiovascular: No: Chest Pain, Palpitations Gastrointestinal: No: Nausea, Vomiting, Abdominal Pain Genitourinary: No Dysuria Objective Exam Vital Signs Date Time Temp Pulse Resp B/P (MAP) Pulse Ox O2 Delivery O2 Flow Rate FiO2 05/25/19 15:38 05/25/19 12:00 36.5 72 18 102/50 (67) 92 Room Air 05/25/19 09:00 94 Room Air 05/25/19 07:52 36.6 82 20 148/69 (95) 94 Room Air 05/25/19 04:05 36.6 67 18 123/58 (79) 96 Room Air 05/25/19 00:05 36.3 60 18 122/66 (84) 97 Room Air 05/24/19 20:00 Room Air 05/24/19 19:47 36.6 64 18 96/47 (63) 94 Room Air 05/24/19 16:00 36.6 60 16 91/49 (63) 93 Room Air I & O 05/25/19 07:00 Intake Total 1690 ml Output Total 1200 ml Balance 490 ml Capillary Refill : Less Than 3 Seconds General Appearance: No Apparent Distress, Chronically ill HEENT: Moist Mucous Membranes Neck: Normal Inspection, Supple Respiratory: Lungs Clear, Normal Breath Sounds, No Accessory Muscle Use Cardiovascular: Regular Rate, Rhythm, No Murmur, Normal Peripheral Pulses Peripheral Pulses: 2+ Dorsalis Pedis (R), 2+ Left Dors-Pedis (L), 2+ Radial Pulses (R), 2+ Radial Pulses (L) Gastrointestinal: soft; No distended, No guarding; tenderness (mild in bilateral lower quadrants) Extremity: Normal Inspection, Non Tender, No Calf Tenderness, No Pedal Edema Neurologic/Psychiatric: Alert, Oriented x3 Skin: Normal Color, Warm/Dry Results Lab Laboratory Tests 05/24/19 20:32: Glucometer 201H 05/25/19 04:08: White Blood Count 9.6, Red Blood Count 4.38, Hemoglobin 9.3L, Hematocrit 31L, Mean Corpuscular Volume 72L, Mean Corpuscular Hemoglobin 21L, Mean Corpuscular Hemoglobin Concent 30L, Red Cell Distribution Width , Platelet Count 391, Mean Platelet Volume , Neutrophils (%) (Auto) 69, Lymphocytes (%) (Auto) 17, Monocytes (%) (Auto) 11, Eosinophils (%) (Auto) 4, Basophils (%) (Auto) 0, Neutrophils # (Auto) 6.6, Lymphocytes # (Auto) 1.6, Monocytes # (Auto) 1.0, Eosinophils # (Auto) 0.4H, Basophils # (Auto) 0.0, Sodium Level 137, Potassium Level 3.2L, Chloride Level 102, Carbon Dioxide Level 24, Anion Gap 11, Blood Urea Nitrogen 13, Creatinine 1.12, Estimat Glomerular Filtration Rate > 60, BUN/Creatinine Ratio 12, Glucose Level 128H, Calcium Level 8.5, Magnesium Level 2.1 05/25/19 10:48: Glucometer 322H Assessment/Plan Assessment/Plan Assessment/Plan Colon Mass/Ulceration Hypoglycemia Patient was found to have 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 The patient was informed of the next steps by Dr. Villalobos. Patient will begin bowel prep tomorrow 05/26/2019 and hold anticoagulation/antiplatelet medications. Depending on results of the CT scan taken today 05/25/2019 and the levels of CEA will dictate further action. As of now patient is scheduled for a right colon resection on 05/27/2019. . Clinical Quality Measures DVT/VTE Risk/Contraindication: Risk Factor Score Per Nursin RFS Level Per Nursing on Admit: 4+=Very High Other: LOW HGB OF [facility] LYN PINA DO 05/25/19 1859: Subjective Subjective/Events-last exam Patient planning on being discharged today. Hgb stable. Tolerating diet and having bowel function. No abdominal pain. Understands pathology of colon ulceration. Denies n/v fever sweats chills shortness of breath or chest pain. Objective Exam General Appearance: No Apparent Distress, Chronically ill HEENT: PERRL/EOMI, Moist Mucous Membranes Neck: Normal Inspection, Supple Respiratory: Chest Non Tender, Normal Breath Sounds, No Accessory Muscle Use Cardiovascular: Regular Rate, Rhythm Gastrointestinal: non tender, soft; No distended, No guarding Extremity: Non Tender, No Calf Tenderness Neurologic/Psychiatric: Alert, Oriented x3, Normal Mood/Affect Skin: Normal Color, Warm/Dry Lymphatic: No Adenopathy Assessment/Plan Assessment/Plan Assessment/Plan Anemia Colon mass/ulceration pathology showing well differentiated invasive colonic adenocarcinoma patient to have ct chest/abd/pelvis and cea okay to dc we discussed laparoscopic hand assisted right colon resection all other indicated procedures possible open and he understands and wishes to proceed will plan on surgery , to hold [facility] Supervisory-Addendum Brief Verification & Attestation Participated in pt care: history, MDM, physical Personally performed: exam, history, MDM, supervision of care Care discussed with: Medical Student Procedures: n/a Results interpretation: Verified all documentation Verification and Attestation of Medical Student E/M Service A medical student performed and documented this service in my presence. I reviewed and verified all information documented by the medical student and made modifications to such information, when appropriate. I personally performed the physical exam and medical decision making. Lyn Villalobos, May 25, 2019,18:59 [facility] May 25, 2019 15:58 LYN VILLALOBOS DO May 25, 2019 18:59
[2019-05-26] MEDS ORDERED: FERR325T18 PO (11:42)
[2019-05-26] MEDS ORDERED: APIX5TAB PO (11:42)
== END 2019-05-25 15:39 | DRG 374 ==
LOC: ICU 14:05 → CSD 05-21 15:26 → ICU 05-21 15:26 → 4TH 05-21 15:58
PROVIDERS: ADMIT Internal Medicine; ATTEND Internal Medicine
PROC: 0DBP8ZX Excision of Rectum, Via Natural or Artificial Opening Endoscopic, Diagnostic (ICD-10-PCS; 2019-05-21)
PROC: 0DJ08ZZ Inspection of Upper Intestinal Tract, Via Natural or Artificial Opening Endoscopic (ICD-10-PCS; 2019-05-21)
PROC: 0DBK8ZX Excision of Ascending Colon, Via Natural or Artificial Opening Endoscopic, Diagnostic (ICD-10-PCS; principal; 2019-05-21 11:30)
PROC: 0DBN8ZX Excision of Sigmoid Colon, Via Natural or Artificial Opening Endoscopic, Diagnostic (ICD-10-PCS; 2019-05-21 11:30)
DX: C18.2 Malignant neoplasm of ascending colon (principal); D62 Acute posthemorrhagic anemia; K63.5 Polyp of colon; J18.9 Pneumonia, unspecified organism; I48.20 Chronic atrial fibrillation, unspecified; I11.0 Hypertensive heart disease with heart failure; I50.9 Heart failure, unspecified; I25.10 Atherosclerotic heart disease of native coronary artery without angina pectoris; J44.9 Chronic obstructive pulmonary disease, unspecified; E78.00 Pure hypercholesterolemia, unspecified; K21.9 Gastro-esophageal reflux disease without esophagitis; E11.9 Type 2 diabetes mellitus without complications; M19.91 Primary osteoarthritis, unspecified site; I95.9 Hypotension, unspecified; Z86.73 Personal history of transient ischemic attack (TIA), and cerebral infarction without residual deficits; Z95.810 Presence of automatic (implantable) cardiac defibrillator; Z85.820 Personal history of malignant melanoma of skin; E16.2 Hypoglycemia, unspecified
CPT/HCPCS: 36415; 71045; 71260; 74178; 80048; 80053; 81000; 82010; 82378; 82728; 82947; 82962; 83525; 83540; 83735; 84100; 84145; 84206; 84681; 85007; 85014; 85018; 85025; 85027; 85610; 85730; 86337; 86850; 86900; 86901; 86920; 88305

== ENCOUNTER 2019-05-26 10:11 | Outpatient (CLI) | payer MEDICARE, MEDICAID ==
[~2019-05-26] VITALS: Ht 167.7 cm; Wt 74.2 kg
[~2019-05-26 10:11] MED LIST changes: +CEFD300C3 PO; +CHOL20002 PO; +FERR325T18 PO; +PROP10DR3 OU; +PROP1DRO7 OP; +SPIR25TA PO; +SPIR25TA5 PO
[2019-05-26] MEDS ORDERED: FERR325T18 PO (11:42)
[2019-05-26] MEDS ORDERED: APIX5TAB PO (11:42)
== END 2019-05-26 11:54 | disposition home or self-care (01) ==
LOC: PREOP 10:11
PROVIDERS: ATTEND Surgery
DX: Z01.818 Encounter for other preprocedural examination (principal)

== ENCOUNTER 2019-05-28 08:51 | Inpatient (IN) | payer MEDICARE, MEDICAID ==
[~2019-05-28] VITALS: Ht 167.7 cm; Wt 74.2 kg
[2019-05-28] VITALS (8 sets, daily range): BP systolic 86–141; BP diastolic 42–68
[2019-05-28] MEDS ORDERED: LACTATED RINGERS 1,000 ML IV PRN (09:13)
[2019-05-28] MEDS ORDERED: ONDANSETRON 4 MG/2 ML (SDV) Z0FRAN ONE (09:28)
[2019-05-28] MEDS ORDERED: proPOfol 200 MG/20 ML (DIPRIVAN) VIAL IV ONE (09:28)
[2019-05-28] MEDS ORDERED: ROCURONIUM 10 MG/ML 5 ML SYRINGE IV ONE (09:28)
[2019-05-28] MEDS ORDERED: NEOSTIGMINE 3 MG/3 ML VIAL ONE (09:28)
[2019-05-28] MEDS ORDERED: LIDOCAINE PF 2% 5 ML (XYLOCAINE) VIAL ONE (09:28)
[2019-05-28] MEDS ORDERED: fentaNYL INJECTION 100 MCG/2 ML AMP ONE (09:28)
[2019-05-28] MEDS ORDERED: GLYCOPYRROLATE 0.2 MG/ML (ROBINUL) 2 ML VIAL ONE (09:28)
[2019-05-28] MEDS ORDERED: ceFAZolin 2 GM IV Premixed 50 ML IV ONE (09:30)
[2019-05-28] MEDS ORDERED: CATHETER FLUSH 10 ML SYR IV PRN (09:30)
--- NOTE | 2019-05-28 09:31 | Progress Note-Pre Operative ---
Pre-Operative Progress Note H&P Reviewed The H&P was reviewed, patient examined and no changes noted. Date Seen by Provider: May 28, 2019 Time Seen by Provider: 09:30 Date H&P Reviewed: May 28, 2019 Time H&P Reviewed: 09:30 Pre-Operative Diagnosis: Right Sided Colon Cancer LYN JACQUES DO May 28, 2019 09:30
[2019-05-28] MEDS ORDERED: BUP/EPI 0.5% 1:200,000 (SENSORCAINE) 30 ML VIAL ONE (09:33)
[2019-05-28] MEDS ORDERED: metroNIDAZOLE 500MG/100ML IVPB 100 ML ONE (09:59)
[2019-05-28] MEDS ORDERED: metroNIDAZOLE 500MG/100ML IVPB 100 ML IV ONE (10:15)
[2019-05-28] MEDS ORDERED: BUPIVACAINE 0.5% 30 ML (SENSORCAINE) VIAL ONE (10:54)
[2019-05-28] MEDS ORDERED: SEVOFLURANE (ULTANE) 15 ML INHAL SOLN ONE ×2 (11:36→11:49)
--- NOTE | 2019-05-28 11:53 | Progress Note-Post Operative ---
Post-Operative Progess Note Surgeon (s)/Polishing Wheel Setter (s) Surgeon LYN JACQUES DO Polishing Wheel Setter: Dr. Hunter Pre-Operative Diagnosis Right Sided Colon Cancer Post-Operative Diagnosis same Procedure & Operative Findings Date of Procedure 05/28/19 Procedure Performed/Findings lap hand assisted extended right colon resection Anesthesia Type gen Estimated Blood Loss Estimated blood loss (mL): min Specimens/Packing Specimens Removed right colon LYN JACQUES DO May 28, 2019 11:53
[2019-05-28] MEDS ORDERED: HYDROcodone/APAP 5 MG/325 MG (LORTAB) TAB PO PRN (12:00)
[2019-05-28] MEDS ORDERED: ONDANSETRON 4 MG/2 ML (SDV) Z0FRAN IVP PRN ×2 (12:00→12:15)
[2019-05-28] MEDS ORDERED: HYDROmorphone 2 MG/ML VIAL (DILAUDID) IV ONE (12:15)
[2019-05-28] MEDS ORDERED: morphine INJ 10 MG/ML 1ML (SYR OR VIAL) IVP ONE (12:15)
[2019-05-28] MEDS ORDERED: morphine INJ 10 MG/ML 1ML (SYR OR VIAL) ONE (12:35)
[2019-05-28] MEDS: LACTATED RINGERS 1,000 ML IV SCH ×2 (13:37→15:01)
--- NOTE | 2019-05-28 13:48 | Physical Therapy Progress Note ---
Therapy Progress Note Patient just returned from surgery and is highly sedated. PT to begin in CRISTIAN Lambert PT May 28, 2019 13:48
[2019-05-28] MEDS ORDERED: ceFAZolin INJECTION 1,000 MG in WATER (STERILE) FOR INJECTION 10 ML IV SCH (14:00)
[2019-05-28] MEDS ORDERED: metroNIDAZOLE 500MG/100ML IVPB 100 ML IV SCH (14:00)
--- NOTE | 2019-05-28 15:01 | NUR ---
HARI MAIN admitted to room 433-1, with an admitting diagnosis colon resection, on 05/28/19 from OR via bed, accompanied by staff.HARI MAIN introduced to surroundings, call light, bed controls, phone, TV, temperature control, lights, meal times, smoking policy, visitor policy, side rail policy, bathrooms and showers. Patient Rights given to patient in the handbook. HARI MAIN verbalizes understanding that [facility] is not responsible for the loss or damage to any personal effects or valuables that are kept in the patients posession during their hospitalization. The following Patient Care Plans and discharge were discussed with the patient. HARI MAIN verbalizes understanding of Interdisciplinary Patient Education. Patient was informed about the Rapid Response Team and its purpose.
[2019-05-28] MEDS ORDERED: FERR-84 PO (15:53)
--- NOTE | 2019-05-28 15:54 | NUR ---
ENTERED THE MED REC USING THE [facility]. THE PT WAS HERE JUST A COUPLE DAYS AGO AND I ENTERED THE MED REC AT THAT TIME. I CALLED THE FACILITY SINCE WHEN HE WAS DISCHARGED THEY WANTED HIM TO START IRON. THEY DID AGREE THAT HE WAS TAKING THAT MED
[2019-05-28] MEDS: metroNIDAZOLE 500MG/100ML IVPB 100 ML IV SCH (17:42)
[2019-05-28] MEDS: ceFAZolin INJECTION 1,000 MG in WATER (STERILE) FOR INJECTION 10 ML IV SCH (17:42)
[2019-05-28] MEDS: morphine INJ 4 MG/ML 1 ML (VIAL/SYRINGE) IVP PRN (23:54)
[2019-05-29] MEDS: LACTATED RINGERS 1,000 ML IV SCH ×3 (00:01→18:38)
[2019-05-29 00:08] VITALS: BP 144/65
[2019-05-29] MEDS: ceFAZolin INJECTION 1,000 MG in WATER (STERILE) FOR INJECTION 10 ML IV SCH (02:38)
[2019-05-29] MEDS: metroNIDAZOLE 500MG/100ML IVPB 100 ML IV SCH (02:38)
[2019-05-29 04:36] VITALS: BP 133/60
--- NOTE | 2019-05-29 07:47 | Progress Note - Surgery ---
[facility] 05/29/19 0747: Subjective Date Seen by a Provider: May 29, 2019 Time Seen by a Provider: 07:42 Subjective/Events-last exam Patient is alert and in no acute distress. No family at bedside. Pain today is 3-5/10 Sleeping okay Decreased urine output .14ml/kg/hr No flatulence or bowel movements Feels hungry Abdominal Incisions: tender around periphery, minimal erythema, minor break through, incisions are intact and well approximated. Denies the following: Chest pain, palpitations, SOB, Cough, N/V, feeling of fever or chills. Positive for abdominal tenderness, no bowel movements and no flatulence. Review of Systems General: No Chills, No Night Sweats HEENT: No Head Aches, No Visual Changes Pulmonary: No Dyspnea, No Cough Cardiovascular: No: Chest Pain, Palpitations Gastrointestinal: Abdominal Pain (R>L); No: Nausea, Vomiting Objective Exam Vital Signs Date Time Temp Pulse Resp B/P (MAP) Pulse Ox O2 Delivery O2 Flow Rate FiO2 05/29/19 04:36 36.8 64 16 133/60 (84) 98 Nasal Cannula 2.00 05/29/19 00:08 36.7 68 22 144/65 (91) 98 Nasal Cannula 2.00 05/28/19 20:45 Nasal Cannula 05/28/19 20:00 36.2 63 20 141/60 (87) Nasal Cannula 2.00 05/28/19 17:15 Nasal Cannula 2.00 05/28/19 16:48 36.1 60 15 137/63 (87) 100 Nasal Cannula 2.00 05/28/19 13:10 Room Air 05/28/19 13:10 36.5 20 134/49 (77) 93 Room Air 05/28/19 12:55 Room Air 05/28/19 12:55 20 133/53 (79) 94 Room Air 05/28/19 12:40 20 135/50 (78) 95 Face Tent 10 05/28/19 12:40 Face Tent 10 05/28/19 12:25 Face Tent 10 05/28/19 12:25 20 109/68 (82) 96 Face Tent 10 05/28/19 12:10 36.5 20 86/42 (57) 94 Face Tent 10 05/28/19 12:10 Face Tent 10 05/28/19 09:59 36.3 61 20 127/42 96 Room Air 05/28/19 09:45 Room Air I & O 05/29/19 07:00 Intake Total 2520 ml Output Total 520 ml Balance 2000 ml Capillary Refill : General Appearance: No Apparent Distress, WD/WN HEENT: PERRL/EOMI; No Moist Mucous Membranes (appear dry) Neck: Non Tender, Supple Respiratory: Chest Non Tender, Normal Breath Sounds, No Accessory Muscle Use, No Respiratory Distress Cardiovascular: Regular Rate, Rhythm, Normal Peripheral Pulses Peripheral Pulses: 2+ Dorsalis Pedis (R), 2+ Left Dors-Pedis (L), 2+ Radial Pulses (R), 2+ Radial Pulses (L) Gastrointestinal: soft; No distended, No guarding, No rebound; tenderness (R>L) Extremity: Normal Capillary Refill, No Calf Tenderness Neurologic/Psychiatric: Alert, Oriented x3 Skin: Normal Color, Warm/Dry Lymphatic: No Adenopathy (No posterior or anterior cervical adenopathy, no axilla adenopathy ) Assessment/Plan Assessment/Plan Admission Diagonsis Post op Right Colon Resection Assessment/Plan Post Op Right sided Colon Resection for Invasive adenocarcinoma Post Op Prerenal Azotemia - Start patient on clear liquid diet - Consider restarting home meds including anticoagulation medication - Continue pain management and IV fluids. - Order Insensitive Spirometry - Order PT - Consider ordering labs for tomorrow: CBC with Diff and CMP - Continue Hamilton catheter until increased urinary output Clinical Quality Measures DVT/VTE Risk/Contraindication: Risk Factor Score Per Nursin RFS Level Per Nursing on Admit: 4+=Very High LYN JACQUES DO 05/29/19 1652: Subjective Subjective/Events-last exam Pain controlled. No bowel function. Not using incentive spirometer because it hasn't been delivered. Urine output down, has hamilton for monitoring. NPO, denies n/v fever sweats chills shortness of breath or chest pain. Objective Exam General Appearance: No Apparent Distress, WD/WN HEENT: PERRL/EOMI Neck: Non Tender, Supple Respiratory: Chest Non Tender, No Accessory Muscle Use, No Respiratory Distress Cardiovascular: Regular Rate, Rhythm Gastrointestinal: soft, tenderness (incisional, incision c/d/i) Extremity: Normal Capillary Refill, No Calf Tenderness Neurologic/Psychiatric: Alert, Oriented x3 Skin: Normal Color, Warm/Dry Lymphatic: No Adenopathy Assessment/Plan Assessment/Plan Assessment/Plan s/p lap hand assisted extended right colon resection hamilton to monitor urine output discussed with nursing who notified resp therap for IS scd's for dvt prophylaxis, if hgb stable tomorrow will restart eliquis increase activity PT consulted start clears pain control Supervisory-Addendum Brief Verification & Attestation Participated in pt care: history, MDM, physical Personally performed: exam, history, MDM, supervision of care Care discussed with: Medical Student Procedures: n/a Results interpretation: Verified all documentation Verification and Attestation of Medical Student E/M Service A medical student performed and documented this service in my presence. I reviewed and verified all information documented by the medical student and made modifications to such information, when appropriate. I personally performed the physical exam and medical decision making. Lyn Jacques, May 29, 2019,17:04 [facility] May 29, 2019 07:47 LYN JACQUES DO May 29, 2019 16:52
[2019-05-29 08:00] VITALS: BP 149/67
--- NOTE | 2019-05-29 09:30 | Anesthesia-General Post-Op ---
General Patient Condition Mental Status/LOC: Same as Preop Cardiovascular: Satisfactory Nausea/Vomiting: Absent Respiratory: Satisfactory Pain: Controlled Complications: Absent Post Op Complications Complications None Follow Up Care/Instructions Patient Instructions None needed. Anesthesia/Patient Condition Patient Condition Patient is doing well, no complaints, stable vital signs, no apparent adverse anesthesia problems. No complications reported per nursing. BINH PINON CRNA May 29, 2019 09:30
--- NOTE | 2019-05-29 09:44 | NUR ---
RT pilo called to start I.S.
[2019-05-29 10:02] LABS: HEMATOCRIT 32 % (40-54); HEMOGLOBIN 9.7 G/DL (13.3-17.7); MEAN CORPUSCULAR HEMOGLOBIN 22 PG (25-34); MEAN CORPUSCULAR HGB CONC 30 G/DL (32-36); MEAN CORPUSCULAR VOLUME 72 FL (80-99); MEAN PLATELET VOLUME 9.2 FL (7.4-10.4); PLATELET COUNT 465 10^3/uL (130-400); WHITE BLOOD COUNT 17.7 10^3/uL (4.3-11.0)
--- NOTE | 2019-05-29 10:15 | Physical Therapy Evaluation ---
PT Evaluation-General Medical Diagnosis Admission Date May 28, 2019 at 08:51 Medical Diagnosis: colon cancer Onset Date: May 28, 2019 Therapy Diagnosis Therapy Diagnosis: generalized weakness/debility Height/Weight Height (Feet): 5 Height (Inches): 7.00 Weight (Pounds): 190 Weight (Ounces): 2.0 Precautions Precautions/Isolations: Standard Precautions Weight Bear Status Right Lower Extremity: Right Weight Bearing/Tolerated Left Lower Extremity: Left Weight Bearing/Tolerated Referral Physician: Griselda Reason for Referral: Evaluation/Treatment Medical History Pertinent Medical History: Atrial Fib, Arthritis, CAD, COPD, DM, GERD, Heart Failure, HTN, Renal Insufficiency Current History s/p colon resection Reviewed History: Yes Social History Home: Assisted Living Prior Prior Level of Function SCALE: Activities may be completed with or without assistive devices. 0-Egeldyixst-iwselqn completes the activity by him/herself with no assistance from a helper. 5-Set-up or Clean-up Assistance-helper sets up or cleans up; patient completes activity. [place] assists only prior to or following the activity. 4-Supervision or Touching Assistance-helper provides verbal cues and/or touching/steadying and/or contact guard assistance as patient completes activity. Assistance may be provided throughout the activity or intermittently. 3-Partial/Moderate Assistance-helper does LESS THAN HALF the effort. [place] lifts, holds or supports trunk or limbs, but provides less than half the effort. 2-Substantial/Maximal Assistance-helper does MORE THAN HALF the effort. [place] lifts or holds trunk or limbs and provides more than half the effort. 1-Ejzwjhzia-ghcbyk does ALL the effort. Patient does none of the effort to complete the activity. Or, the assistance of 2 or more helpers is required for the patient to complete the activity. If activity was not attempted, code reason: 7-Patient Refused. 9-Not Applicable-not attempted and the patient did not perform the activity before the current illness, exacerbation or injury. 10-Not Attempted due to Environmental Limitations-(lack of equipment, weather restraints, etc.). 88-Not Attempted due to Medical Conditions or Safety Concerns. Bed Mobility: 5 Transfers (B,C,W/C): 5 Gait: 5 Indoor Mobility (Ambulation): Independent Stairs: Not Applicalbe Prior Devices Use: Walker PT Evaluation-Current Subjective Patient initially declined PT, however, after much encouragement, patient agreed. Pain Numeric Pain Scale: 5-Moderate Pain Location: Medial, Lower Location Body Site: Abdomen Pain Description: Acute Objective Patient Orientation: Person, Time, Situation Attachments: Retana Catheter, IV ROM/Strength ROM Lower Extremities bilateral LE WFL Strength Lower Extremities 3/5 grossly bilateral LE Integumentary/Posture Integumentary refer to nursing notes Bladder Incontinence: Retana Cath Posture trunk flexed posture due to pain and weakness Neuromuscular (Tone, Coordination, Reflexes) grossly intact Sensory Vision: Wears Glasses Hearing: Functional Sensation Right Lower Extremit: Intact Sensation Left Lower Extremity: Intact Transfers Roll Left to Right (QC): 2 Sit to Lying (QC): 2 Lying to Sitting/Side of Bed(Q: 2 Sit to Stand (QC): 3 Chair/Ebl-ue-Ibejq Xfer(QC): 3 Gait Does the Patient Walk?: Yes Mode of Locomotion: Walk Anticipated Mode of Locomotion: Walk Walk 10 feet (QC): 3 Walk 50 ft with 2 Turns(QC): 3 Walk 150 ft (QC): 88 Distance: 100' Gait Assistive Device: FWW Comments/Gait Description extended UE's with FWW use due to weakness Balance Sitting Static: Normal Sitting Dynamic: Normal Standing Static: Fair Standing Dynamic: Fair Assessment/Needs 79 y.o. male, will benefit from skilled PT to address functional strength and mobility to improve current LOF to safely return to [place] at maximum LOF. Rehab Potential: Fair Post Rehab Potential-Barriers: compliance PT Garment Form Assembler Goals Senior Living Goals PT Senior Living Goals Time Frame: Jun 12, 2019 Roll Left & Right (QC): 5 Sit to Lying (QC): 5 Lying-Sitting on Side/Bed(QC): 5 Sit to Stand (QC): 5 Chair/Hhq-hr-Vuzxh Xfer(QC): 5 Toilet Transfer (QC): 5 Does the Patient Walk: Yes Walk 10 feet (QC): 5 Walk 50ft with 2 Turns (QC): 5 Walk 150 ft (QC): 5 PT Plan Problem List Problem List: Activity Tolerance, Functional Strength, Safety, Balance, Gait, Transfer, Bed Mobility Treatment/Plan Treatment Plan: Continue Plan of Care Treatment Plan: Bed Mobility, Education, Functional Activity Kristine, Functional Strength, Gait, Safety, Therapeutic Exercise, Transfers Treatment Duration: Jun 12, 2019 Frequency: 6 times per week Estimated Hrs Per Day: .25 hour per day Patient and/or Family Agrees t: Yes Time/GCodes Time In: 911 Time Out: 925 Total Billed Treatment Time: 14 Total Billed Treatment 1 visit [facility] 14 min CRISTIAN SAUCEDA PT May 29, 2019 10:15
[2019-05-29 10:18] LABS: BUN/CREATININE RATIO 10; CARBON DIOXIDE 24 MMOL/L (21-32); CHLORIDE 104 MMOL/L (98-107); CREATININE SERUM 0.83 MG/DL (0.60-1.30); GFR ESTIMATED > 60; GLUCOSE 147 MG/DL (70-105); MAGNESIUM 1.9 MG/DL (1.6-2.4); POTASSIUM 3.6 MMOL/L (3.6-5.0); SODIUM 137 MMOL/L (135-145)
--- NOTE | 2019-05-29 10:36 | Consultation - Hospitalist ---
HPI History of Present Illness: HPI/Chief Complaint John Payne is a 79 year old man with past medical history of hypertension, hyperlipidemia, atrial fibrillation, heart failure with reduced ejection fraction, hyperthyroidism, who presented for hemicolectomy due to colon cancer. He was recently admitted with anemia and had biopsies performed of a colonic ulceration. Those biopsies returned positive for colon cancer. He underwent hemicolectomy 05/27. Upon my examination, his only complaints R thirst and abdominal pain. He says the abdominal pain isn't present since the surgery. He would like some water this morning. He also would like some coffee. He denies any fevers or chills. Denies any chest pain, shortness of breath, or cough. He denies any nausea or vomiting. He is not yet passing gas. He has been getting up and walking in the [place]. He feels more weak than usual. Source: patient Date Seen 05/29/19 Attending Physician Garfield Villalobos DO PCP Hayden Owen MD Referring Physician Date of Admission May 28, 2019 at 08:51 Home Medications & Allergies Home Medications Reviewed patient Home Medication Reconciliation performed by pharmacy medication reconciliations electronic train control technician and/or nursing. Patients Allergies have been reviewed. Allergies Allergies Coded Allergies No Known Drug Allergies (Verified05/21/19) Past Sazujog-Sywpqi-Pkpsfk Hx Past Med/Social Hx: Reviewed Nursing Past Med/Soc Hx Patient Social History Alcohol Use: Denies Use Recreational Drug Use: No Smoking Status: Former Smoker Former Smoker, Quit: Apr 17, 2018 Type Used: Cigarettes, Pipe Physical Abuse Screen: No Sexual Abuse: No Recent Foreign Travel: No Contact w/other who traveled: No Recent Hopitalizations: Yes (05/18/19-05/25/19 anemia) Recent Infectious Disease Expo: No Immunizations Up To Date Date of Pneumonia Vaccine: Mar 19, 2019 Date of Influenza Vaccine: Dec 16, 2018 Seasonal Allergies Seasonal Allergies: No Past Medical History Surgeries: Cardiac, Defibrillator Respiratory: COPD Cardiac: Atrial Fibrillation, Chronic Edema/Swelling, Coronary Artery Disease, High Cholesterol, Hypertension Reproductive: No Genitourinary: Renal Failure Gastrointestinal: Gastroesophageal Reflux Musculoskeletal: Arthritis Endocrine: Diabetes, Non-Insulin dep Loss of Vision: Denies Hearing Impairment: Denies Cancer: Skin, Melanoma, Colon Did You Recieve Any Treatments: Yes What Type of Treatment Did You: Surgical Intervention History of Blood Disorders: Yes (anemia) Adverse Reaction to Blood Vizcarra: No Family History Patient reports no known family medical history. Diabetes Review of Systems Constitutional: weakness EENTM: no symptoms reported Respiratory: no symptoms reported Cardiovascular: no symptoms reported Gastrointestinal: abdominal pain Genitourinary: no symptoms reported Musculoskeletal: no symptoms reported Skin: no symptoms reported Psychiatric/Neurological: No Symptoms Reported Physical Exam Physical Exam Vital Signs Vital Signs - First Documented 05/28/19 05/28/19 09:45 09:59 Temp 36.3 Pulse 61 Resp 20 B/P (MAP) 127/42 Pulse Ox 96 O2 Delivery Room Air Capillary Refill : Less Than 3 Seconds Height, Weight, BMI Height: 5'7.00" Weight: 190lbs. 2.0oz. 86.202087gd; 26.38 BMI Method:Estimated General Appearance: No Apparent Distress, WD/WN HEENT: PERRL/EOMI, Other (dry mucous membranes) Neck: Non Tender, Supple Respiratory: Lungs Clear, Normal Breath Sounds, No Respiratory Distress Cardiovascular: Regular Rate, Rhythm, No Edema, No Murmur Gastrointestinal: Soft, Abnormal Bowel Sounds (absent), Tenderness Extremity: Normal Inspection, No Pedal Edema Neurologic/Psychiatric: Alert, Oriented x3, Normal Mood/Affect, Motor Weakness (chronic right sided weakness) Skin: Normal Color, Warm/Dry Results Results/Procedures Labs Laboratory Tests 05/29/19 09:55 Patient resulted labs reviewed. Assessment/Plan Assessment and Plan Assess & Plan/Chief Complaint colon cancer Status post hemicolectomy Iron deficiency anemia postop day 1, underwent surgery 05/27 Continue PT/OT Incentive spirometry Advancing to clear liquid diet today Continue IV fluids paroxysmal atrial fibrillation Continue amiodarone and digoxin Resume Eliquis tomorrow if hemoglobin stable chronic heart failure with reduced ejection fraction hold Lasix and spironolactone Continue ADARSH inhibitor and beta jarret hyperthyroidism Continue methimazole leukocytosis Likely reactive post surgery afebrile Continue to monitor Hyperglycemia Accu-Cheks before meals at bedtime Sliding scale insulin history of CVA Residual right-sided weakness Continue PT/OT Thank you for the consultation, do not hesitate to contact the hospitalist service with any questions or concerns. Diagnosis/Problems Diagnosis/Problems (1) Colon cancer Status: Acute (2) Leukocytosis Status: Acute Clinical Quality Measures DVT/VTE Risk/Contraindication: Risk Factor Score Per Nursin RFS Level Per Nursing on Admit: 4+=Very High MARILY HOGUE MD May 29, 2019 10:36
[2019-05-29] MEDS ORDERED: MELATONIN 3 MG TABLET PO PRN (10:45)
--- NOTE | 2019-05-29 11:30 | NUR ---
CM/SS visited with the patient for discharge planning. The patient plans to go back to [facility] when he is discharged. He states that he has just updated his DPOA. He verbalized that his new DPOA is Anuradha (sister) who lives in [place]. She is supposed to be coming to the hospital today. The patient states that he is feeling okay today but is in pain. He does not have any questions or needs at this time. Will continue to follow.
[2019-05-29] MEDS: PANTOPRAZOLE 20 MG TABLET (PROTONIX) PO SCH (11:36)
[2019-05-29] MEDS: inSUlin ASPART (NovoLOG) 1 UNIT/0.01 ML (CHARGE PER UNIT) SC SCH ×3 (11:36→21:18)
[2019-05-29 12:00] VITALS: BP 151/65
--- NOTE | 2019-05-29 14:01 | Physician Query Clarification ---
PQ-CHF Specificity Admission Date: May 28, 2019 at 08:51 Discharge Date: The medical record reflects the following clinical scenario: History/Risk Factors: Paroxysmal Atrial Fib Hypertension Congestive heart failure Clinical Findings: Heart failure with reduced ejection fraction per consult dictation. Treatment: Coreg 6.25 mg. daily. Question: Can you further specify the acuity &/or type of CHF per the clinical indicators above? Please document a response in the Progress Notes or Discharge Summary. 1. Acuity: Acute, Chronic or Acute on Chronic 2. Type: Systolic, Diastolic or Systolic & Diastolic 3. Unspecified: CHF cannot be further specified regarding type or acuity 4. Other, with explanation of clinical findings 5. Clinically undetermined, no explanation for clinical findings PHYSICIAN RESPONSE Acuity: Chronic Type: Systolic Please remember a lack of response to the above will prompt a phone page by CDI/Coding staff. In responding to this query, please exercise your independent professional judgment. The purpose of this communication is to more accurately reflect the complexity of your patients condition. The fact that a question is asked does not imply that any particular answer is desired or expected. Thank you for your timely response to this clarification. Requestors name: Alma Blanca [facility] Phone # ext [phone] or [phone] THIS PHYSICIAN QUERY FORM IS A PERMANENT PART OF THE MEDICAL RECORD ALMA BLANCA May 29, 2019 14:01 MARILY HOGUE MD Jun 01, 2019 20:35
--- NOTE | 2019-05-29 15:56 | NUR ---
this Rn took over patient care at this time. patient resting with eyes closed. no additional needs at this time
[2019-05-29 16:01] VITALS: BP 140/63
[2019-05-29 19:02] VITALS: BP 121/58
[2019-05-29] MEDS: CARVEDILOL 6.25 MG (COREG) TAB PO SCH (21:21)
[2019-05-30] VITALS (7 sets, daily range): BP systolic 113–137; BP diastolic 54–63
[2019-05-30] MEDS: LACTATED RINGERS 1,000 ML IV SCH ×3 (04:18→20:02)
[2019-05-30] MEDS: inSUlin ASPART (NovoLOG) 1 UNIT/0.01 ML (CHARGE PER UNIT) SC SCH ×4 (05:31→21:07)
[2019-05-30 05:38] LABS: HEMATOCRIT 27 % (40-54); HEMOGLOBIN 8.1 G/DL (13.3-17.7); MEAN CORPUSCULAR HEMOGLOBIN 22 PG (25-34); MEAN CORPUSCULAR HGB CONC 30 G/DL (32-36); MEAN CORPUSCULAR VOLUME 73 FL (80-99); MEAN PLATELET VOLUME 10.1 FL (7.4-10.4); PLATELET COUNT 372 10^3/uL (130-400); WHITE BLOOD COUNT 12.8 10^3/uL (4.3-11.0)
[2019-05-30 05:56] LABS: BUN/CREATININE RATIO 9; CALCIUM 7.9 MG/DL (8.5-10.1); CARBON DIOXIDE 27 MMOL/L (21-32); CHLORIDE 106 MMOL/L (98-107); CREATININE SERUM 0.75 MG/DL (0.60-1.30); GFR ESTIMATED > 60; GLUCOSE 120 MG/DL (70-105); MAGNESIUM 1.9 MG/DL (1.6-2.4); POTASSIUM 3.4 MMOL/L (3.6-5.0); SODIUM 138 MMOL/L (135-145)
--- OUTSIDE RECORDS SUMMARY | 2019-05-30 06:04 | XMS REPORT | Encounter Summary ---
Author Author [facility] Organization [facility] Address Unknown Phone Unavailable Care Team Providers Care Health And Nutrition Specialist Name Role Phone Celio Hernandez MD PCP Encounter Details Care Team Description Date Type Department Sanjay Raphael MD [address] [place] [address] [phone] 12/24/2018 Hospital Cardiovascular Medi cine Encounter Remote Device Check [phone] Social History Date Tobacco Use Types Packs/Day [...] daily. Coronary artery disease Take with involving [place] coronary food. artery of [place] heart, angina presence unspecified, Ischemic cardiomyopathy, Chronic [...] tongue Coronary artery disease every 5 involving [place] coronary minutes as artery of [place] heart, needed for angina presence Chest Pain. [...] XT DR SKYLAR OTHER OUTSID E # [id number] LAB Generator [id number] OTHER OUTSIDE Serial # LAB Generator 03/20/2016 OTHER OUTSIDE Implnat Date LAB MONSE/EOL Per senior systems programmer OTHER OUTSIDE Indicator LAB Generator Medtronic OTHER OUTSIDE Tail Trimmer LAB Generator No OTHER OUTSIDE Investigational LAB Wireless Yes OTHER OUTSIDE Generator LAB Device Type DDD-ICD OTHER OUTSIDE LAB Device Carelink Express OTHER OUTSIDE [place] LAB Transmitter Compatible RV Lead Model # SPRINT QUATTRO SECURE S MRI OTHER OUT SIDE SURESCAN 6935M-62CM LAB RV Lead Serial [id number] OTHER OUTSIDE # LAB RV Lead Implant 03/20/2016 OTHER OUTSIDE Date LAB RV Lead Diaph. 10 OTHER OUTSIDE Stimulation LAB RV Lead No OTHER OUTSIDE Investigational LAB RV Lead active fixation OTHER OUTSIDE Fixation LAB RV Lead RV apex OTHER OUTSIDE Location LAB RV Lead Coil Single OTHER OUTSIDE LAB RV Lead Medtronic OTHER OUTSIDE Tail Trimmer LAB Atrial Lead CAPSUREFIX NOVUS MRI SURESCAN OTHER O UTSIDE Model # 5076-52CM LAB Atrial Lead [id number] OTHER OUTSIDE Serial # LAB Atrial Lead 03/20/2016 OTHER OUTSIDE Implant Date LAB Atrial Lead 10 OTHER OUTSIDE Diaph. LAB Stimulation Atrial Lead Medtronic OTHER OUTSIDE Tail Trimmer LAB Atrial Lead No OTHER OUTSIDE Investigational [...] Check LAB AT/AF Daily 6 OTHER OUTSIDE [place] Hours LAB Average Vent 100 OTHER OUTSIDE Rate during LAB AT/AF #BPM Average Vent 6 OTHER OUTSIDE Rate During LAB AT/AF #Hours Remote Yes OTHER OUTSIDE Monitoring? LAB Daily [place] On OTHER OUTSIDE Threshld Alert? LAB Average [...]
--- OUTSIDE RECORDS SUMMARY | 2019-05-30 06:04 | XMS REPORT | Clinical Summary ---
Author Author [facility] Organization [facility] Address Unknown Phone Unavailable Care Team Providers Care Head Miller Name Role Phone Celio Hernandez MD PCP Source Comments Some departments are not documenting in the electronic medical record. If you d o not see the information that you expected, contact Release of Information in [facility] [place] Information Management department at [phone] for further assistan ce in locating additional records.[facility] Allergies No Known Allergies Medications [...] 6 Coronary artery disease every 5 involving [place] coronary minutes as artery of [place] heart, needed for angina presence Chest Pain. unspecified, Chronic systolic heart failure (HCC), Ischemic cardiomyopathy, Chronic obstructive pulmonary disease, unspecified COPD type (HCC), Hyperlipidemia, unspecified hyperlipidemia type, Pulmonary hypertension (HCC) Active aspirin EC 81 mg Take 1 Tab by 90 Tab 3 01 tabletIndications: mouth daily. 6 Coronary artery disease Take with involving [place] coronary food. artery of [place] heart, angina presence unspecified, Ischemic cardiomyopathy, Chronic obstructive pulmonary disease, unspecified COPD type (HCC) Active digoxin (LANOXIN) 125 mcg Take 125 mcg 0 tablet by mouth daily. Active apixaban (ELIQUIS) 5 mg Take 5 mg by 0 tablet mouth twice daily. Active furosemide (LASIX) 40 mg Take one 90 tablet 3 0 tablet tablet by 9 mouth twice daily. Additional Information Patient taking differently: 40 mg Oral DAILY, Reported on 09/25/2018 3:43 PM Active spironolactone Take one 45 tablet 3 (ALDACTONE) 25 mg tablet tablet by 9 mouth daily. Take with food. Active amiodarone (CORDARONE) Take one 90 tablet 3 200 mg tablet tablet by 9 mouth twice daily. Take with food. Additional Information Patient taking differently: 200 mg Oral DAILY, [...] Ischemic cardiomyopathy 05/06/2015 CAD (coronary artery disease), [place] c oronary artery Overview: 04/13/15 - cardiac [...] sy stolic heart REMOTE ICD 12:51 PM PANEL BUILDER failure (HCC) from Last 3 Months Results * DEVICE EVALUATION - REMOTE ICD (04/08/2019 12:51 PM PANEL BUILDER) [facility] Signature Generator Model [facility] MRI XT DR CHENG OTHER OUTSID E # [id number] LAB Generator [id number] OTHER OUTSIDE Serial # LAB Generator 03/20/2016 OTHER OUTSIDE Implnat Date LAB MONSE/EOL Per senior systems programmer OTHER OUTSIDE Indicator LAB Generator Medtronic OTHER OUTSIDE Finisher Tailor Apprentice LAB Wireless Yes OTHER OUTSIDE Generator LAB Device Type DDD-ICD OTHER OUTSIDE LAB Device [employer] OTHER OUTSIDE [place] LAB Transmitter Compatible RV Lead Model # SPRINT QUATTRO SECURE S MRI OTHER OUT SIDE SURESCAN 6935M-62CM LAB RV Lead Serial [id number] OTHER OUTSIDE # LAB RV Lead Implant 03/20/2016 OTHER OUTSIDE Date LAB RV Lead Diaph. 10 OTHER OUTSIDE Stimulation LAB RV Lead active fixation OTHER OUTSIDE Fixation LAB RV Lead RV apex OTHER OUTSIDE Location LAB RV Lead Coil Single OTHER OUTSIDE LAB RV Lead Medtronic OTHER OUTSIDE Finisher Tailor Apprentice LAB Atrial Lead CAPSUREFIX NOVUS MRI SURESCAN OTHER O UTSIDE Model # 5076-52CM LAB Atrial Lead [id number] OTHER OUTSIDE Serial # LAB Atrial Lead 03/20/2016 OTHER OUTSIDE Implant Date LAB Atrial Lead 10 OTHER OUTSIDE Diaph. LAB Stimulation Atrial Lead Medtronic OTHER OUTSIDE Finisher Tailor Apprentice LAB Atrial Lead active fixation OTHER OUTSIDE [...] Check LAB AT/AF Daily 6 OTHER OUTSIDE [place] Hours LAB Average Vent 100 OTHER OUTSIDE Rate during LAB AT/AF #BPM Average Vent 6 OTHER OUTSIDE Rate During LAB AT/AF #Hours Remote Yes OTHER OUTSIDE Monitoring? LAB Daily [place] On OTHER OUTSIDE Threshld Alert? LAB Average [...] Present B AETNA MEDICAID AETNA xxxxxxxxxxx 2018-P [facility] [place] -[address] Advance Directives Patient Compounder Flavorings Explanation Type Date Recorded Advance Directive/DPOA Date [...]
--- OUTSIDE RECORDS SUMMARY | 2019-05-30 06:04 | XMS REPORT | Encounter Summary ---
Author Author [facility] Organization [facility] Address Unknown Phone Unavailable Care Team Providers Care Class A Regional Truck Driver Name Role Phone Celio Hernandez MD PCP Encounter Details Care Team Description Date Type Department Sanjay Raphael MD [address] [place] [address] [phone] 03/25/2019 Hospital Cardiovascular Medi cine Encounter Remote Device Check [phone] Social History Date Tobacco Use Types Packs/Day [...] daily. Coronary artery disease Take with involving [place] coronary food. artery of [place] heart, angina presence unspecified, Ischemic cardiomyopathy, Chronic [...] tongue Coronary artery disease every 5 involving [place] coronary minutes as artery of [place] heart, needed for angina presence Chest Pain. [...] sy stolic heart REMOTE ICD 12:51 PM PUBLIC WORKS MANAGER failure (HCC) documented in this encounter Results * DEVICE EVALUATION - REMOTE ICD (04/08/2019 12:51 PM PUBLIC WORKS MANAGER) Generator Model [facility]A MRI XT DR SKYLAR OTHER OUTSID E # [id number] LAB Generator [id number] OTHER OUTSIDE Serial # LAB Generator 03/20/2016 OTHER OUTSIDE Implnat Date LAB MONSE/EOL Per professional programmer analyst OTHER OUTSIDE Indicator LAB Generator Medtronic OTHER OUTSIDE Control Director LAB Wireless Yes OTHER OUTSIDE Generator LAB Device Type DDD-ICD OTHER OUTSIDE LAB Device [employer] OTHER OUTSIDE [place] LAB Transmitter Compatible RV Lead Model # SPRINT QUATTRO SECURE S MRI OTHER OUT SIDE SURESCAN 6935M-62CM LAB RV Lead Serial [id number] OTHER OUTSIDE # LAB RV Lead Implant 03/20/2016 OTHER OUTSIDE Date LAB RV Lead Diaph. 10 OTHER OUTSIDE Stimulation LAB RV Lead active fixation OTHER OUTSIDE Fixation LAB RV Lead RV apex OTHER OUTSIDE Location LAB RV Lead Coil Single OTHER OUTSIDE LAB RV Lead Medtronic OTHER OUTSIDE Control Director LAB Atrial Lead CAPSUREFIX NOVUS MRI SURESCAN OTHER O UTSIDE Model # 5076-52CM LAB Atrial Lead [id number] OTHER OUTSIDE Serial # LAB Atrial Lead 03/20/2016 OTHER OUTSIDE Implant Date LAB Atrial Lead 10 OTHER OUTSIDE Diaph. LAB Stimulation Atrial Lead Medtronic OTHER OUTSIDE Control Director LAB Atrial Lead active fixation OTHER OUTSIDE [...] Check LAB AT/AF Daily 6 OTHER OUTSIDE [place] Hours LAB Average Vent 100 OTHER OUTSIDE Rate during LAB AT/AF #BPM Average Vent 6 OTHER OUTSIDE Rate During LAB AT/AF #Hours Remote Yes OTHER OUTSIDE Monitoring? LAB Daily [place] On OTHER OUTSIDE Threshld Alert? LAB Average [...]
--- OUTSIDE RECORDS SUMMARY | 2019-05-30 06:06 | XMS REPORT | Continuity of Care Document ---
Author Organization Unknown Address Unknown Phone Unavailable Allergies Active Description Code Type Severity Reaction Onset Reported/Identified Relationship to Patient Clinical Status Yes No Known Drug Allergies [id number] Drug Allergy Unknown N/A 05/21/2019 Medications There [...] SCHAEFFERTH K Ot 428.0 09/02/2014 DARIELA HELLER BUSINESS ANALYSIS SPECIALIST Ot 288.60 09/02/2014 DARIELA HELLER BUSINESS ANALYSIS SPECIALIST Ot 790.99 09/02/2014 MARVIN SCHAEFFER K Ot 397.0 09/02/2014 CHINEDU SCHAEFFERTH K Ot 414.00 09/02/2014 CHINEDU SCHAEFFERTH K Ot 416.8 09/02/2014 MARVIN SCHAEFFER K Ot 424.0 09/02/2014 CHINEDU SCHAEFFERTH K Ot 428.0 09/02/2014 HELLERDARIELA BUSINESS ANALYSIS SPECIALIST Ot 288.60 09/02/2014 DARIELA HELLER BUSINESS ANALYSIS SPECIALIST Ot 790.99 09/20/2014 DARIELA HELLER BUSINESS ANALYSIS SPECIALIST Ot 288.60 09/20/2014 DARIELA HELLER BUSINESS ANALYSIS SPECIALIST Ot 790.99 09/30/2014 ARRONDARIELA BUSINESS ANALYSIS SPECIALIST Ot 288.60 09/30/2014 ARRONDARIELA BUSINESS ANALYSIS SPECIALIST Ot 790.99 10/01/2014 NUNEZ-TEMI PA, MARVIN K Ot 397.0 10/01/2014 NUNEZ-TEMI PA, MARVIN K Ot 414.00 10/01/2014 NUNEZ-TEMI PA, MARVIN K Ot 416.8 10/01/2014 NUNEZ-TEMI PA, MARVIN K Ot 424.0 10/01/2014 NUNEZ-TEMI PA, MARVIN K Ot 428.0 10/01/2014 ARRONDARIELA BUSINESS ANALYSIS SPECIALIST Ot 288.60 10/01/2014 ARRONDARIELA BUSINESS ANALYSIS SPECIALIST Ot 790.99 10/25/2014 NUNEZ-TEMI PA, MARVIN K [...] NUNEZ-TEMI PA, MARVIN K Ot 414.00 04/06/2015 NUNZE-TEMI PA, MARVIN K Ot 416.8 04/06/2015 NUNEZ-TEMI PA, MARVIN K Ot 424.0 04/06/2015 NUNEZ-TEMI PA, MARVIN K Ot 428.0 04/06/2015 ARRONDARIELA BUSINESS ANALYSIS SPECIALIST Ot 288.60 04/06/2015 ARRON DARIELA M BUSINESS ANALYSIS SPECIALIST Ot 790.99 04/06/2015 MARVIN SCHAEFFER Ot 414.9 [...] Ot I25. 10 ATHSCL HEART DISEASE OF [place] CORONARY 04/13/2015 TAYLOR BROWN MD, Ot I25. [...] 04/13/2015 TAYLOR BROWN MD, Ot Z79.899 OTHER CABLE STRANDER (CURRENT) DRUG THERAPY 05/03/2015 MARVIN SCHAEFFER Ot [...] CONGESTIVE HEART FAILURE NOS 05/17/2016 DARIELA HELLER BUSINESS ANALYSIS SPECIALIST Ot 288.60 LEUKOCYTOSIS, UNSPECIFIED 05/17/2016 DARIELA HELLER BUSINESS ANALYSIS SPECIALIST Ot 790.99 BLOOD EXAM - OTH NONSPECIFIC FINDINGS 05/17/2016 MARVIN SCHAEFFER Ot 414.9 CHR ISCHEMIC HRT DIS NOS 05/17/2016 MARVIN SCHAEFFER Ot 427.31 ATRIAL FIBRILLATION 05/17/2016 MARVIN SCHAEFFER Ot 428.0 CONGESTIVE HEART FAILURE NOS 05/17/2016 MARVIN SCHAEFFER Ot 433.10 CAROTID ARTERY OCCLUSION W O CEREBRAL IN 05/17/2016 MARVIN SCHAEFFER Ot I25.10 ATHSCL HEART DISEASE OF [place] CORONARY 05/17/2016 MARVIN SCHAEFFER Ot I27.0 PRIMARY PULMONARY HYPERTENSION 05/17/2016 MARVIN SCHAEFFER Ot I48.0 PAROXYSMAL ATRIAL FIBRILLATION 05/17/2016 MARVIN SCHAEFFER Ot I65.23 OCCLUSION AND STENOSIS OF BILATERAL [place] 05/17/2016 Ot E11.9 TYPE 2 DIABETES MELLITUS WITHOUT COMPLIC 05/17/2016 Ot I10 ESSENT IAL (PRIMARY) HYPERTENSION 05/17/2016 Ot I25.10 ATH SCL HEART DISEASE OF [place] CORONARY 05/17/2016 Ot I48.0 PARO XYSMAL ATRIAL FIBRILLATION 05/20/2016 KEVIN SAENZ, TAYLOR Xiao Ot C43. 9 MALIGNANT MELANOMA OF SKIN, UNSPECIFIED 05/20/2016 TAYLOR BROWN MD Ot I25. 10 ATHSCL HEART DISEASE OF [place] CORONARY 05/20/2016 TAYLOR BROWN MD Ot I48. [...] Ot I25. 10 ATHSCL HEART DISEASE OF [place] CORONARY 05/23/2016 TAYLOR BROWN MD Ot I48. [...] Ot I25. 10 ATHSCL HEART DISEASE OF [place] CORONARY 06/07/2016 TAYLOR BROWN MD Ot I48. [...] Ot I25. 10 ATHSCL HEART DISEASE OF [place] CORONARY 06/14/2016 TAYLOR BROWN MD Ot I48. [...] DARIELA HELLER Ot 790.99 BLOOD EXAM - [facility] NONSPECIFIC FINDINGS 03/27/2018 MARVIN SCHAEFFER Ot 414.9 CHR ISCHEMIC HRT DIS NOS 03/27/2018 MARVIN SCHAEFFER Ot 427.31 ATRIAL FIBRILLATION 03/27/2018 MARVIN SCHAEFFER Ot 428.0 CONGESTIVE HEART FAILURE NOS 03/27/2018 MARVIN SCHAEFFER Ot 433.10 CAROTID ARTERY OCCLUSION W O CEREBRAL IN 03/27/2018 MARVIN SCHAEFFER Ot I25.10 ATHSCL HEART DISEASE OF [place] CORONARY 03/27/2018 MARVIN SCHAEFFER Ot I27.0 PRIMARY PULMONARY HYPERTENSION 03/27/2018 MARVIN SCHAEFFER Ot I48.0 PAROXYSMAL ATRIAL FIBRILLATION 03/27/2018 MARVIN SCHAEFFER Ot I65.23 OCCLUSION AND STENOSIS OF BILATERAL [place] 03/27/2018 Ot E11.9 TYPE 2 DIABETES MELLITUS WITHOUT COMPLIC 03/27/2018 Ot I10 ESSENT IAL (PRIMARY) HYPERTENSION 03/27/2018 Ot I25.10 ATH SCL HEART DISEASE OF [place] CORONARY 03/27/2018 Ot I48.0 PARO XYSMAL ATRIAL FIBRILLATION 03/27/2018 TAYLOR BROWN MD Ot C43. 9 MALIGNANT MELANOMA OF SKIN, UNSPECIFIED 03/27/2018 TAYLOR BROWN MD Ot I25. 10 ATHSCL HEART DISEASE OF [place] CORONARY 03/27/2018 TAYLOR BROWN MD Ot I48. [...] CONGESTIVE HEART FAILURE NOS 03/27/2018 DARIELA HELLER BUSINESS ANALYSIS SPECIALIST Ot 288.60 LEUKOCYTOSIS, UNSPECIFIED 03/27/2018 DARIELA HELLER BUSINESS ANALYSIS SPECIALIST Ot 790.99 BLOOD EXAM - OTH NONSPECIFIC [...] Cornell Ot I25.10 ATHSCL HEART DISEASE OF [place] CORONARY 03/27/2018 SOL LOMAS MARVIN Sarabia Ot I27.0 PRIMARY PULMONARY HYPERTENSION 03/27/2018 SOL LOMAS MARVIN Cornell Ot I48.0 PAROXYSMAL ATRIAL FIBRILLATION 03/27/2018 SOL LOMAS MARVIN Cornell Ot I65.23 OCCLUSION AND STENOSIS OF BILATERAL [place] 03/27/2018 Ot E11.9 TYPE 2 DIABETES MELLITUS WITHOUT COMPLIC 03/27/2018 Ot I10 ESSENT IAL (PRIMARY) HYPERTENSION 03/27/2018 Ot I25.10 ATH SCL HEART DISEASE OF [place] CORONARY 03/27/2018 Ot I48.0 PARO XYSMAL ATRIAL FIBRILLATION 03/27/2018 TAYLOR BROWN MD Ot C43. 9 MALIGNANT MELANOMA OF SKIN, UNSPECIFIED 03/27/2018 TAYLOR BROWN MD Ot I25. 10 ATHSCL HEART DISEASE OF [place] CORONARY 03/27/2018 TAYLOR BROWN MD Ot I48. [...] DO Ot I25.10 ATHSCL HEART DISEASE OF [place] CORONARY 03/28/2018 GRISELDA SANTOS DO Ot I25.5 [...] DYSPHASIA 03/28/2018 GRISELDA SANTOS DO Ot Z79.82 CABLE STRANDER (CURRENT) USE OF ASPIRIN 03/28/2018 GRISELDA SANTOS [...] DO Ot I25.10 ATHSCL HEART DISEASE OF [place] CORONARY 04/08/2018 GRISELDA SANTOS DO Ot I25.82 [...] PHASE 04/08/2018 GRISELDA SANTOS DO Ot Z79.84 CABLE STRANDER (CURRENT) USE OF ORAL HYPOGLYC 04/08/2018 GRISELDA [...] SCHAEFFER Ot I25.10 ATHSCL HEART DISEASE OF [place] CORONARY 06/26/2018 MARVIN SCHAEFFER Ot I27.0 PRIMARY PULMONARY HYPERTENSION 06/26/2018 MARVIN SCHAEFFER Ot I48.0 PAROXYSMAL ATRIAL FIBRILLATION 06/26/2018 MARVIN SCHAEFFER Ot I65.23 OCCLUSION AND STENOSIS OF BILATERAL [place] 06/26/2018 Ot E11.9 TYPE 2 DIABETES MELLITUS WITHOUT COMPLIC 06/26/2018 Ot I10 ESSENT IAL (PRIMARY) HYPERTENSION 06/26/2018 Ot I25.10 ATH SCL HEART DISEASE OF [place] CORONARY 06/26/2018 Ot I48.0 PARO XYSMAL ATRIAL FIBRILLATION 06/26/2018 TAYLOR BROWN MD Ot C43. 9 MALIGNANT MELANOMA OF SKIN, UNSPECIFIED 06/26/2018 TAYLOR BROWN MD, Ot I25. 10 ATHSCL HEART DISEASE OF [place] CORONARY 06/26/2018 TAYLOR BROWN MD, Ot I48. [...] K Ot I25.10 ATHSCL HEART DISEASE OF [place] CORONARY 06/30/2018 SOL LOMAS MARVIN K Ot [...] K Ot I25.10 ATHSCL HEART DISEASE OF [place] CORONARY 07/03/2018 SOL LOMAS MARVIN K Ot [...] K Ot I25.10 ATHSCL HEART DISEASE OF [place] CORONARY 07/17/2018 MARVIN SCHAEFFER Ot I48.0 PAROXYSMAL [...] OF MALIGNANT MELANOMA O 07/17/2018 SOL LOMAS MARVIN Sarabia Ot Z98.890 OTHER [...] Ot I25. 10 ATHSCL HEART DISEASE OF [place] CORONARY 05/21/2019 MARILY HOGUE MD Ot I48. [...] Ot I25. 10 ATHSCL HEART DISEASE OF [place] CORONARY 05/21/2019 MARILY HOGUE MD Ot I48. [...] Ot I25. 10 ATHSCL HEART DISEASE OF [place] CORONARY 05/21/2019 MARILY HOGUE MD Ot I48. [...] Z95.810 PRESENCE OF AUTOMATIC (IMPLANTABLE) CARD 05/22/2019 AMRILY HOGUE MD Ot D62 ACUTE POSTHEMORRHAGIC ANEMIA 05/22/2019 MARILY HOGUE MD Ot E11. 9 TYPE 2 DIABETES MELLITUS WITHOUT COMPLIC 05/22/2019 MARILY HOGUE MD Ot E78. 00 PURE HYPERCHOLESTEROLEMIA, UNSPECIFIED 05/22/2019 MARILY HOGUE MD Ot I11. 0 HYPERTENSIVE HEART DISEASE WITH HEART FA 05/22/2019 MARILY HOGUE MD Ot I25. 10 ATHSCL HEART DISEASE OF [place] CORONARY 05/22/2019 MARILY HOGUE MD Ot I48. 20 CHRONIC ATRIAL FIBRILLATION, UNSPECIFIED 05/22/2019 MARILY HOGUE MD Ot I50. 9 HEART FAILURE, UNSPECIFIED 05/22/2019 MARILY HOGUE MD Ot I95. 9 HYPOTENSION, UNSPECIFIED 05/22/2019 MARILY HOGUE MD Ot J44. 9 CHRONIC OBSTRUCTIVE PULMONARY DISEASE, U 05/22/2019 MRAILY HOGUE MD Ot K21. 9 GASTRO-ESOPHAGEAL REFLUX [...] Ot I25. 10 ATHSCL HEART DISEASE OF [place] CORONARY 05/22/2019 MARILY HOGUE MD Ot I48. [...] OF AUTOMATIC (IMPLANTABLE) CARD 05/23/2019 MARILY HOGUE MD Ot D62 ACUTE POSTHEMORRHAGIC ANEMIA 05/23/2019 MARILY HOGUE MD Ot E11. 9 TYPE 2 DIABETES MELLITUS WITHOUT COMPLIC 05/23/2019 MARILY HOGUE MD Ot E78. 00 PURE HYPERCHOLESTEROLEMIA, UNSPECIFIED 05/23/2019 MARILY HOGUE MD Ot I11. 0 HYPERTENSIVE HEART DISEASE WITH HEART FA 05/23/2019 MARILY HOGUE MD Ot I25. 10 ATHSCL HEART DISEASE OF [place] CORONARY 05/23/2019 MARILY HOGUE MD Ot I48. 20 CHRONIC ATRIAL FIBRILLATION, UNSPECIFIED 05/23/2019 MARILY HOGUE MD Ot I50. 9 HEART FAILURE, UNSPECIFIED 05/23/2019 MARILY HOGUE MD Ot I95. 9 HYPOTENSION, UNSPECIFIED 05/23/2019 MARILY HOGUE MD Ot J44. 9 CHRONIC OBSTRUCTIVE PULMONARY DISEASE, U 05/23/2019 MARILY HOGUE MD Ot K21. 9 GASTRO-ESOPHAGEAL REFLUX DISEASE WITHOUT 05/23/2019 MARILY HOGUE MD Ot K92. 2 GASTROINTESTINAL HEMORRHAGE, UNSPECIFIED 05/23/2019 MARILY HOGUE MD, Ot M19. 91 PRIMARY OSTEOARTHRITIS, UNSPECIFIED SITE 05/23/2019 MARILY HOGUE MD Ot Z85.820 PERSONAL HISTORY OF MALIGNANT MELANOMA O 05/23/2019 MARILY HOGUE MD Ot Z86. 73 PRSNL HX OF TIA (TIA), AND CEREB INFRC W 05/23/2019 MARILY HOGUE MD Ot Z95.810 PRESENCE OF AUTOMATIC (IMPLANTABLE) CARD 05/24/2019 MARILY HOGUE MD Ot D62 ACUTE POSTHEMORRHAGIC ANEMIA 05/24/2019 MARILY HOGUE MD Ot E11. 9 TYPE 2 DIABETES MELLITUS WITHOUT COMPLIC 05/24/2019 MARILY HOGUE MD Ot E78. 00 PURE HYPERCHOLESTEROLEMIA, UNSPECIFIED 05/24/2019 MARILY HOGUE MD Ot I11. 0 HYPERTENSIVE HEART DISEASE WITH HEART FA 05/24/2019 MARILY HOGUE MD Ot I25. 10 ATHSCL HEART DISEASE OF [place] CORONARY 05/24/2019 MARILY HOGUE MD Ot I48. 20 CHRONIC ATRIAL FIBRILLATION, UNSPECIFIED 05/24/2019 MARILY HOGUE MD Ot I50. 9 HEART FAILURE, UNSPECIFIED 05/24/2019 MARILY HOGUE MD Ot I95. 9 HYPOTENSION, UNSPECIFIED 05/24/2019 MARILY HOGUE MD, Ot J44. 9 CHRONIC OBSTRUCTIVE PULMONARY DISEASE, U 05/24/2019 MARILY HOGUE MD Ot K21. 9 GASTRO-ESOPHAGEAL REFLUX DISEASE WITHOUT 05/24/2019 MARILY HOGUE MD Ot K92. 2 GASTROINTESTINAL HEMORRHAGE, UNSPECIFIED 05/24/2019 MARILY HOGUE MD Ot M19. 91 PRIMARY OSTEOARTHRITIS, UNSPECIFIED SITE 05/24/2019 MARILY HOGUE MD Ot Z85.820 PERSONAL HISTORY OF MALIGNANT MELANOMA O 05/24/2019 MARILY HOGUE MD Ot Z86. 73 PRSNL HX OF TIA (TIA), AND CEREB INFRC W 05/24/2019 MARILY HOGUE MD Ot Z95.810 PRESENCE OF AUTOMATIC (IMPLANTABLE) CARD 05/25/2019 MARILY HOGUE MD Ot D62 ACUTE POSTHEMORRHAGIC ANEMIA 05/25/2019 MARILY HOGEU MD Ot E11. 9 TYPE 2 DIABETES MELLITUS WITHOUT COMPLIC 05/25/2019 MARILY HOGUE MD Ot E78. 00 PURE HYPERCHOLESTEROLEMIA, UNSPECIFIED 05/25/2019 MARILY HOGUE MD Ot I11. 0 HYPERTENSIVE HEART DISEASE WITH HEART FA 05/25/2019 MARILY HOGUE MD Ot I25. 10 ATHSCL HEART DISEASE OF [place] CORONARY 05/25/2019 MARILY HOGUE MD Ot I48. 20 CHRONIC ATRIAL FIBRILLATION, UNSPECIFIED 05/25/2019 MARILY HOGUE MD Ot I50. 9 HEART FAILURE, UNSPECIFIED 05/25/2019 MARILY HOGUE MD Ot I95. 9 HYPOTENSION, UNSPECIFIED 05/25/2019 MARILY HOGUE MD Ot J44. 9 CHRONIC OBSTRUCTIVE PULMONARY DISEASE, U 05/25/2019 MARILY HOGUE MD Ot K21. 9 GASTRO-ESOPHAGEAL REFLUX DISEASE WITHOUT 05/25/2019 MARILY HOGUE MD Ot K92. 2 GASTROINTESTINAL HEMORRHAGE, UNSPECIFIED 05/25/2019 MARILY HOGUE MD, Ot M19. 91 PRIMARY OSTEOARTHRITIS, UNSPECIFIED SITE 05/25/2019 MARILY HOGUE MD Ot Z85.820 PERSONAL HISTORY OF MALIGNANT MELANOMA O 05/25/2019 MARILY HOGUE MD, Ot Z86. 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 9 TYPE 2 DIABETES MELLITUS WITHOUT COMPLIC 05/25/2019 MARILY HOGUE MD Ot E16. 2 HYPOGLYCEMIA, UNSPECIFIED 05/25/2019 MARILY HOGUE MD Ot E78. 00 PURE HYPERCHOLESTEROLEMIA, UNSPECIFIED 05/25/2019 MARILY HOGUE MD Ot I11. 0 HYPERTENSIVE HEART DISEASE WITH HEART FA 05/25/2019 MARILY HOGUE MD Ot I25. 10 ATHSCL HEART DISEASE OF [place] CORONARY 05/25/2019 MARILY HOGUE MD Ot I48. 20 CHRONIC ATRIAL FIBRILLATION, UNSPECIFIED 05/25/2019 MARILY HOGUE MD Ot I50. 9 HEART FAILURE, UNSPECIFIED 05/25/2019 MARILY HOGUE MD Ot I95. 9 HYPOTENSION, UNSPECIFIED 05/25/2019 MARILY HOGUE MD Ot J18. 9 PNEUMONIA, UNSPECIFIED ORGANISM 05/25/2019 MARILY HOGUE MD Ot J44. 9 CHRONIC OBSTRUCTIVE PULMONARY DISEASE, U 05/25/2019 MARILY HOGUE MD Ot K21. 9 GASTRO-ESOPHAGEAL REFLUX DISEASE WITHOUT 05/25/2019 MARILY HOGUE MD Ot K63. 5 POLYP OF COLON 05/25/2019 MARILY HOGUE MD Ot K92. 2 GASTROINTESTINAL HEMORRHAGE, UNSPECIFIED 05/25/2019 MARILY HOGUE MD Ot M19. 91 PRIMARY OSTEOARTHRITIS, UNSPECIFIED SITE 05/25/2019 MYKEL SAENZ, MARILY Mohamud Ot Z85.820 PERSONAL HISTORY OF MALIGNANT MELANOMA O 05/25/2019 MYKEL SAENZ, MARILY Mohamud Ot Z86. 73 PRSNL HX OF TIA (TIA), AND CEREB INFRC W 05/25/2019 MYKEL SAENZ, MARILY Mohamud Ot Z95.810 PRESENCE OF AUTOMATIC (IMPLANTABLE) CARD Procedures Code Description Performed By Per formed On [id number] EX CISION OF ASCENDING COLON, ENDO, DIAGN 05/21/2019 [id number] EX CISION OF SIGMOID COLON, ENDO, DIAGN 05/21/2019 [id number] EX CISION OF RECTUM, ENDO, DIAGN 05/21/2019 [id number] IN SPECTION OF UPPER INTESTINAL TRACT, EN 05/21/2019 Results Test Result Range Complete blood count [...] microcytes detection by light microscopy MOD ERATE NR Comprehensive metabolic panel - 05/18/19 14:25 Serum [...] LEUKO REDUCED AS1 T RANSFUSED 05/19/19 0932 NRG Blood type T Indirect antibody screen pa shayna - 05/18/19 14:25 WRISTBAND NUMBER [id number] NRG ABO+Rh group AP NRG Blood group antibody screen NEGATIVE NR G PT panel in platelet poor plasma by [...] measurement by g lucometer (mass/volume) - 05/19/19 11:28 Capillary blood glucose measurement by glucometer (mas [...] Automated blood platelet mean volume measurement T [employer] 7.4- 10.4 Automated blood neutrophils/100 leukocytes 70 [...] 1.6-2.4 Manual absolute plasma cell count - 0307/05 03:04 Blood monocytes/100 leukocytes 8 % NRG [...] Automated blood platelet mean volume measurement T PUBLIC[employer] EXP[employer] 7.4- 10.4 Automated blood neutrophils/100 leukocytes 67 [...] measurement by g lucometer (mass/volume) - 05/22/19 00:17 Capillary blood glucose measurement by glucometer [...] Automated blood platelet mean volume measurement T PUBLICITY EXPERT 7.4- 10.4 Automated blood neutrophils/100 leukocytes 85 [...] NRG Blood macrocytes detection by light microscopy [facility] NRG Blood poikilocytosis detection by light microscopy MODERATE NRG Blood hypochromia detection by light microscopy MO DERATE NRG Blood microcytes detection by light microscopy [facility] NRG Blood bin cells detection by light microscopy [facility] NRG Blood dacrocytes detection by light microscopy [facility] NR Blood spherocytes detection by light microscopy [facility] NRG PROCALCITONIN (PCT) - 05/22/19 04:08 PROCALCITONIN (PCT) [...] Automated blood platelet mean volume measurement T PUBLIC[employer] EXP[employer] 7.4- 10.4 Automated blood neutrophils/100 leukocytes 81 [...] measurement by g lucometer (mass/volume) - 05/23/19 10:04 Capillary blood glucose measurement by glucometer (mas s/volume) 104 mg/dL 70-110 Capillary blood glucose measurement by g lucometer (mass/volume) - 05/23/19 12:06 Capillary blood glucose measurement by glucometer (mas s/volume) 107 mg/dL 70-110 Capillary blood glucose measurement by g lucometer (mass/volume) - 05/23/19 14:15 Capillary blood glucose measurement by glucometer (mas s/volume) 115 mg/dL 70-110 Capillary blood glucose measurement by g lucometer (mass/volume) - 05/23/19 15:55 Capillary blood glucose measurement by glucometer (mas s/volume) 123 mg/dL 70-110 Capillary blood glucose measurement by g lucometer (mass/volume) - 05/23/19 17:56 Capillary blood glucose measurement by glucometer (mas s/volume) 139 mg/dL 70-110 Capillary blood glucose measurement by g lucometer (mass/volume) - 05/23/19 20:02 Capillary blood glucose measurement by glucometer (mas s/volume) 131 mg/dL 70-110 Capillary blood glucose measurement by g lucometer (mass/volume) - 05/23/19 22:09 Capillary blood glucose measurement by glucometer (mas s/volume) 135 mg/dL 70-110 Capillary blood glucose measurement by g lucometer (mass/volume) - 05/24/19 00:06 Capillary blood glucose measurement by glucometer (mas s/volume) 112 mg/dL 70-110 Capillary blood glucose measurement by g lucometer (mass/volume) - 05/24/19 01:52 Capillary blood glucose measurement by glucometer (mas s/volume) 117 mg/dL 70-110 Capillary blood glucose measurement by g lucometer (mass/volume) - 05/24/19 04:04 Capillary blood glucose measurement by glucometer (mas s/volume) 105 mg/dL 70-110 Complete blood count (CBC) with automate d white blood cell (WBC) differential - 05/24/19 04:21 Blood leukocytes automated count (number/volume) 13.2 10*3/uL 4.3-11.0 Blood erythrocytes automated count (number/volume) 4.41 10*6/uL 4.35-5.85 Venous blood hemoglobin measurement (mass/volume) 9.6 g/dL 13.3-17.7 Blood hematocrit (volume fraction) 31 % 40-54 Automated erythrocyte mean corpuscular volume 71 [ foz_us] 80-99 Automated erythrocyte mean corpuscular h emoglobin (mass per erythrocyte) 22 pg 25-34 Automated erythrocyte mean corpuscular h emoglobin concentration measurement (mass/volume) 31 g/dL 32-36 Automated erythrocyte distribution width ratio TNP 10.0- 14.5 Automated blood platelet count (count/volume) 376 10*3/uL 130-400 Automated blood platelet mean volume measurement T PUBLICITY EXP[employer] 7.4- 10.4 Automated blood neutrophils/100 leukocytes 81 % 42-75 Automated blood lymphocytes/100 leukocytes 9 % 12-44 Blood monocytes/100 leukocytes 8 % 0-12 Automated blood eosinophils/100 leukocytes 2 % 0-10 Automated blood basophils/100 leukocytes 0 % 0-10 Blood neutrophils automated count (number/volume) 10.7 10*3 1.8-7.8 Blood lymphocytes automated count (number/volume) 1.2 10*3 1.0-4.0 Blood monocytes automated count (number/volume) 1. 0 10*3 0.0-1.0 Automated eosinophil count 0.3 10*3/uL 0 .0-0.3 Automated blood basophil count (count/volume) 0.0 10*3/uL 0.0-0.1 Whole blood basic metabolic panel - 11/04 04:21 Serum or plasma sodium measurement (moles/volume) 138 mmol/L 135-145 Serum or plasma potassium measurement (moles/volume) 3.2 mmol/L 3.6-5.0 Serum or plasma chloride measurement (moles/volume) 102 mmol/L 98-107 Carbon dioxide 24 mmol/L 21-32 Serum or plasma anion gap determination (moles/volume) 12 mmol/L 5-14 Serum or plasma urea nitrogen measurement (mass/volume ) 13 mg/dL 7-18 Serum or plasma creatinine measurement (mass/volume) 1.11 mg/dL 0.60-1.30 Serum or plasma urea nitrogen/creatinine mass ratio 12 NRG Serum or plasma creatinine measurement w ith calculation of estimated glomerular filtration rate > NRG Serum or plasma glucose measurement (mass/volume) 100 mg/dL 70-105 Serum or plasma calcium measurement (mass/volume) 8.4 mg/dL 8.5-10.1 PROCALCITONIN (PCT) - 05/24/19 04:21 PROCALCITONIN (PCT) 0.56 ng/mL <0.10 Capillary blood glucose measurement by g lucometer (mass/volume) - 05/24/19 05:52 Capillary blood glucose measurement by glucometer (mas s/volume) 118 mg/dL 70-110 Capillary blood glucose measurement by g lucometer (mass/volume) - 05/24/19 08:01 Capillary blood glucose measurement by glucometer (mas s/volume) 98 mg/dL 70-110 Capillary blood glucose measurement by g lucometer (mass/volume) - 05/24/19 10:11 Capillary blood glucose measurement by glucometer (mas s/volume) 104 mg/dL 70-110 Capillary blood glucose measurement by g lucometer (mass/volume) - 05/24/19 15:42 Capillary blood glucose measurement by glucometer (mas s/volume) 207 mg/dL 70-110 Capillary blood glucose measurement by g lucometer (mass/volume) - 05/24/19 20:32 Capillary blood glucose measurement by glucometer (mas s/volume) 201 mg/dL 70-110 Complete blood count (CBC) with automate d white blood cell (WBC) differential - 05/25/19 04:08 Blood leukocytes automated count (number/volume) 9.6 10*3/uL 4.3-11.0 Blood erythrocytes automated count (number/volume) 4.38 10*6/uL 4.35-5.85 Venous blood hemoglobin measurement (mass/volume) 9.3 g/dL 13.3-17.7 Blood hematocrit (volume fraction) 31 % 40-54 Automated erythrocyte mean corpuscular volume 72 [ foz_us] 80-99 Automated erythrocyte mean corpuscular h emoglobin (mass per erythrocyte) 21 pg 25-34 Automated erythrocyte mean corpuscular h emoglobin concentration measurement (mass/volume) 30 g/dL 32-36 Automated erythrocyte distribution width ratio TNP 10.0- 14.5 Automated blood platelet count (count/volume) 391 10*3/uL 130-400 Automated blood platelet mean volume measurement T [employer]ITY EXPERT 7.4- 10.4 Automated blood neutrophils/100 leukocytes 69 % 42-75 Automated blood lymphocytes/100 leukocytes 17 % 12-44 Blood monocytes/100 leukocytes 11 % 0-12 Automated blood eosinophils/100 leukocytes 4 % 0-10 Automated blood basophils/100 leukocytes 0 % 0-10 Blood neutrophils automated count (number/volume) 6.6 10*3 1.8-7.8 Blood lymphocytes automated count (number/volume) 1.6 10*3 1.0-4.0 Blood monocytes automated count (number/volume) 1. 0 10*3 0.0-1.0 Automated eosinophil count 0.4 10*3/uL 0 .0-0.3 Automated blood basophil count (count/volume) 0.0 10*3/uL 0.0-0.1 Whole blood basic metabolic panel - 12/05 04:08 Serum or plasma sodium measurement (moles/volume) 137 mmol/L 135-145 Serum or plasma potassium measurement (moles/volume) 3.2 mmol/L 3.6-5.0 Serum or plasma chloride measurement (moles/volume) 102 mmol/L 98-107 Carbon dioxide 24 mmol/L 21-32 Serum or plasma anion gap determination (moles/volume) 11 mmol/L 5-14 Serum or plasma urea nitrogen measurement (mass/volume ) 13 mg/dL 7-18 Serum or plasma creatinine measurement (mass/volume) 1.12 mg/dL 0.60-1.30 Serum or plasma urea nitrogen/creatinine mass ratio 12 NRG Serum or plasma creatinine measurement w ith calculation of estimated glomerular filtration rate > NRG Serum or plasma glucose measurement (mass/volume) 128 mg/dL 70-105 Serum or plasma calcium measurement (mass/volume) 8.5 mg/dL 8.5-10.1 Magnesium - 05/25/19 04:08 Magnesium 2.1 mg/dL 1.6-2.4 Serum ragweed IgE antibody assay - 05/24 04:08 [id number] 3.2 % 0.0-5.0 Capillary blood glucose measurement by g lucometer (mass/volume) - 05/25/19 10:48 Capillary blood glucose measurement by glucometer (mas s/volume) 322 mg/dL 70-110 Blood type T Indirect antibody screen pa shayna - 05/28/19 09:28 WRISTBAND NUMBER [id number] NRG ABO+Rh group AP NRG Blood group antibody screen NEGATIVE NR G Methicillin resistant Staphylococcus aur eus (MRSA) screening culture - 05/28/19 09:28 Methicillin resistant Staphylococcus aureus (MRSA) scr eening culture NEG NRG Automated blood complete blood count (he mogram) panel - 05/29/19 09:55 Blood leukocytes automated count (number/volume) 17.7 10*3/uL 4.3-11.0 Blood erythrocytes automated count (number/volume) 4.48 10*6/uL 4.35-5.85 Venous blood hemoglobin measurement (mass/volume) 9.7 g/dL 13.3-17.7 Blood hematocrit (volume fraction) 32 % 40-54 Automated erythrocyte mean corpuscular volume 72 [ foz_us] 80-99 Automated erythrocyte mean corpuscular h emoglobin (mass per erythrocyte) 22 pg 25-34 Automated erythrocyte mean corpuscular h emoglobin concentration measurement (mass/volume) 30 g/dL 32-36 Automated erythrocyte distribution width ratio TNP 10.0- 14.5 Automated blood platelet count (count/volume) 465 10*3/uL 130-400 Automated blood platelet mean volume measurement 9.2 [foz_us] 7.4-10.4 Whole blood basic metabolic panel - 05/16 06/04 09:55 Serum or plasma sodium measurement (moles/volume) 137 mmol/L 135-145 Serum or plasma potassium measurement (moles/volume) 3.6 mmol/L 3.6-5.0 Serum or plasma chloride measurement (moles/volume) 104 mmol/L 98-107 Carbon dioxide 24 mmol/L 21-32 Serum or plasma anion gap determination (moles/volume) 9 mmol/L 5-14 Serum or plasma urea nitrogen measurement (mass/volume ) 8 mg/dL 7-18 Serum or plasma creatinine measurement (mass/volume) 0.83 mg/dL 0.60-1.30 Serum or plasma urea nitrogen/creatinine mass ratio 10 NRG Serum or plasma creatinine measurement w ith calculation of estimated glomerular filtration rate > NRG Serum or plasma glucose measurement (mass/volume) 147 mg/dL 70-105 Serum or plasma calcium measurement (mass/volume) 8.0 mg/dL 8.5-10.1 Magnesium - 05/29/19 09:55 Magnesium 1.9 mg/dL 1.6-2.4 Capillary blood glucose measurement by g lucometer (mass/volume) - 05/29/19 11:30 Capillary blood glucose measurement by glucometer (mas s/volume) 204 mg/dL 70-110 Capillary blood glucose measurement by g lucometer (mass/volume) - 05/29/19 16:04 Capillary blood glucose measurement by glucometer (mas s/volume) 147 mg/dL 70-110 Capillary blood glucose measurement by g lucometer (mass/volume) - 05/29/19 20:40 Capillary blood glucose measurement by glucometer (mas s/volume) 150 mg/dL 70-110 Capillary blood glucose measurement by g lucometer (mass/volume) - 05/30/19 05:19 Capillary blood glucose measurement by glucometer (mas s/volume) 129 mg/dL 70-110 Automated blood complete blood count (he mogram) panel - 05/30/19 05:21 Blood leukocytes automated count (number/volume) 12.8 10*3/uL 4.3-11.0 Blood erythrocytes automated count (number/volume) 3.72 10*6/uL 4.35-5.85 Venous blood hemoglobin measurement (mass/volume) 8.1 g/dL 13.3-17.7 Blood hematocrit (volume fraction) 27 % 40-54 Automated erythrocyte mean corpuscular volume 73 [ foz_us] 80-99 Automated erythrocyte mean corpuscular h emoglobin (mass per erythrocyte) 22 pg 25-34 Automated erythrocyte mean corpuscular h emoglobin concentration measurement (mass/volume) 30 g/dL 32-36 Automated erythrocyte distribution width ratio TNP 10.0- 14.5 Automated blood platelet count (count/volume) 372 10*3/uL 130-400 Automated blood platelet mean volume measurement 10.1 [foz_us] 7.4-10.4 Whole blood basic metabolic panel - 05/16 07/05 05:21 Serum or plasma sodium measurement (moles/volume) 138 mmol/L 135-145 Serum or plasma potassium measurement (moles/volume) 3.4 mmol/L 3.6-5.0 Serum or plasma chloride measurement (moles/volume) 106 mmol/L 98-107 Carbon dioxide 27 mmol/L 21-32 Serum or plasma anion gap determination (moles/volume) 5 mmol/L 5-14 Serum or plasma urea nitrogen measurement (mass/volume ) 7 mg/dL 7-18 Serum or plasma creatinine measurement (mass/volume) 0.75 mg/dL 0.60-1.30 Serum or plasma urea nitrogen/creatinine mass ratio 9 NRG Serum or plasma creatinine measurement w ith calculation of estimated glomerular filtration rate > NRG Serum or plasma glucose measurement (mass/volume) 120 mg/dL 70-105 Serum or plasma calcium measurement (mass/volume) 7.9 mg/dL 8.5-10.1 Magnesium - 05/30/19 05:21 Magnesium 1.9 mg/dL 1.6-2.4 Encounters ACCT No. Visit Date/Time Discharge Status Pt. Type Provider Facility Loc./Unit Complaint [id number] 05/26/2019 10:11:00 020 11:54:00 DIS Outpatient LYN JACQUES DO [facility] PREOP COLON CANCER [id number] 05/18/2019 14:05:00 020 15:39:00 DIS Inpatient MARILY HOGUE MD [facility] 4TH SYMPTOMATIC ANEMIA [id number] 08/01/2018 08:30:00 019 23:59:59 CLS Outpatient INGE SILVESTRE DO [facility] RAD THYROID NODULE [id number] 06/27/2018 13:57:00 019 23:59:59 CLS Outpatient ANAMIKA SCHAEFFER [facility] RAD CHF [id number] 06/24/2018 12:27:00 019 23:59:59 CLS Preadmit MARVIN SCHAEFFER [facility] RAD CARTOID ARTERY STENOSIS [id number] 06/24/2018 08:38:00 019 23:59:59 CLS Preadmit MARVIN SCHAEFFER [facility] RAD CHF [id number] 03/28/2018 10:30:00 019 10:00:00 DIS Inpatient GRISELDA SANTOS DO, [facility] IRF CVA [id number] 04/02/2018 08:05:00 019 23:59:59 CLS Outpatient TAYLOR BROWN MD [facility] CATH LEFT CVA [id number] 03/27/2018 12:32:00 019 10:30:00 [facility] ; R HEMIPARES IS [id number] 06/17/2017 08:36:00 018 23:59:59 CLS Outpatient INGE SILVESTRE DO [facility] RT DYSPNEA [id number] 06/04/2017 13:37:00 018 23:59:59 CLS Preadmit MUNIRA OROZCO MD [facility] RT DYSPNEA [id number] 05/22/2017 12:18:00 018 23:59:59 CLS Outpatient INGE SILVESTRE DO [facility] RAD [id number] 05/17/2016 12:30:00 017 23:59:59 CLS Outpatient TAYLOR BROWN MD [facility] CARD CAD,CHF,COPD,PAF [id number] 09/02/2015 11:37:00 06/17/2 016 12:45:00 DIS Outpatient THOMAS DURAN MD [facility] CR STENT [id number] 08/19/2015 13:59:00 016 00:01:00 DIS Outpatient THOMAS DURAN MD [facility] CR STENT [id number] 04/13/2015 08:59:00 016 23:59:59 CLS Outpatient TAYLOR BROWN MD [facility] CATH ABNORMAL STRESS TEST,CAD,PAF,HTN,HLP,DM [id number] 04/06/2015 07:55:00 016 23:59:59 CLS Outpatient ANAMIKA SCHAEFFER [facility] CARD CAD,FLIP,PAF ,PULMONARY HTN [id number] 10/01/2014 08:07:00 015 23:59:59 CLS Outpatient ANAMIKA SCHAEFFER [facility] CARD CAD CHF CAR OTID ARTERY STENOSIS AFIB [id number] 08/27/2014 09:22:00 015 23:59:59 CLS Outpatient DARIELA HELLER [facility] LAB ABNORMAL CBC/EL EVATED WBC [id number] 04/30/2013 09:58:00 014 23:59:59 CLS Outpatient ANAMIKA SCHAEFFER [facility] CARD CAD CHF TODDLER CAREGIVER D [id number] 05/28/2019 08:51:[address] Inpatient LYN JACQUES DO [facility] 4TH COLON CANCER [id number] 04/14/2015 13:57:00 Document Registration [id number] 05/23/2011 12:45:00 Document Registration
--- NOTE | 2019-05-30 08:25 | Progress Note - Surgery ---
NORIS LOPEZ [facility] 05/30/19 0825: Subjective Date Seen by a Provider: May 30, 2019 Time Seen by a Provider: 08:20 Subjective/Events-last exam Patient is alert and oriented and in no acute distress. Denies pain at this time. Sitting up in bed with breakfast tolerating current diet Denies flatulence and bowel movement, currently has urinary catheter in place. Normalization of urine output .55ml/kg/hr Has IS next to him WBC has normalized from 17.7 to 12.8 Mg is 1.9, K+ 3.4 and Na 138 Hgb is 8.1 Incision: is clean, intact with minimal erythema, well approximated with minor tenderness on right side compared to the left. patient stated he coughed a little last night and this caused some pain but he has been fine since. Patient denies the following: chest pain, palpitations, SOB, phlegm production, N/V and the feeling of fever or chills. Review of Systems General: No Chills, No Night Sweats HEENT: No Visual Changes, No Eye Pain Pulmonary: No Dyspnea; Cough (coughed a little last night) Cardiovascular: No: Chest Pain, Palpitations Gastrointestinal: No: Nausea, Vomiting, Abdominal Pain Objective Exam Vital Signs Date Time Temp Pulse Resp B/P (MAP) Pulse Ox O2 Delivery O2 Flow Rate FiO2 05/30/19 07:04 36.8 60 15 137/60 (85) 96 Nasal Cannula 2.00 05/30/19 04:31 37.2 60 18 119/63 (81) 96 Nasal Cannula 2.00 05/30/19 00:12 37.1 61 22 121/62 (81) 97 Nasal Cannula 2.00 05/29/19 20:59 Nasal Cannula 1.00 05/29/19 19:02 68 18 121/58 (79) 97 Nasal Cannula 2.00 05/29/19 16:45 Nasal Cannula 05/29/19 16:01 37.2 70 20 140/63 (88) 98 Nasal Cannula 2.00 05/29/19 12:00 36.5 66 18 151/65 (93) 95 Nasal Cannula 2.00 05/29/19 10:34 97 Room Air 05/29/19 09:00 97 Nasal Cannula 2.00 I & O 05/30/19 07:00 Intake Total 3062 ml Output Total 1050 ml Balance 2012 ml Capillary Refill : Less Than 3 Seconds General Appearance: No Apparent Distress, WD/WN HEENT: PERRL/EOMI, Moist Mucous Membranes Neck: Non Tender, Supple Respiratory: Chest Non Tender, Lungs Clear, No Accessory Muscle Use, No Respiratory Distress Cardiovascular: Regular Rate, Rhythm, No Edema, Normal Peripheral Pulses Peripheral Pulses: 2+ Dorsalis Pedis (R), 2+ Left Dors-Pedis (L), 2+ Radial Pulses (R), 2+ Radial Pulses (L) Gastrointestinal: soft; No distended, No guarding; tenderness (incisional, incision c/d/i) Extremity: Normal Capillary Refill, No Calf Tenderness, No Pedal Edema Neurologic/Psychiatric: Alert, Oriented x3, Normal Mood/Affect Skin: Normal Color, Warm/Dry Lymphatic: No Adenopathy Results Lab Laboratory Tests 05/29/19 09:55: White Blood Count 17.7H, Red Blood Count 4.48, Hemoglobin 9.7L, Hematocrit 32L, Mean Corpuscular Volume 72L, Mean Corpuscular Hemoglobin 22L, Mean Corpuscular Hemoglobin Concent 30L, Red Cell Distribution Width , Platelet Count 465H, Mean Platelet Volume 9.2, Sodium Level 137, Potassium Level 3.6, Chloride Level 104, Carbon Dioxide Level 24, Anion Gap 9, Blood Urea Nitrogen 8, Creatinine 0.83, Estimat Glomerular Filtration Rate > 60, BUN/Creatinine Ratio 10, Glucose Level 147H, Calcium Level 8.0L, Magnesium Level 1.9 05/29/19 11:30: Glucometer 204H 05/29/19 16:04: Glucometer 147H 05/29/19 20:40: Glucometer 150H 05/30/19 05:19: Glucometer 129H 05/30/19 05:21: White Blood Count 12.8H, Red Blood Count 3.72L, Hemoglobin 8.1L, Hematocrit 27L, Mean Corpuscular Volume 73L, Mean Corpuscular Hemoglobin 22L, Mean Corpuscular Hemoglobin Concent 30L, Red Cell Distribution Width , Platelet Count 372, Mean Platelet Volume 10.1, Sodium Level 138, Potassium Level 3.4L, Chloride Level 106, Carbon Dioxide Level 27, Anion Gap 5, Blood Urea Nitrogen 7, Creatinine 0.75, Estimat Glomerular Filtration Rate > 60, BUN/Creatinine Ratio 9, Glucose Level 120H, Calcium Level 7.9L, Magnesium Level 1.9 Microbiology 05/28/19 MRSA Screen - Final, Complete MRSA not isolated Assessment/Plan Assessment/Plan Assessment/Plan s/p lap hand assisted extended right colon resection Consider a trial of removing Hamilton catheter Patient was instructed and taught how to use IS SCDs for dvt prophylaxis, consider restarting eliquiis Continue increased PT activity Continue to monitor I/Os Pain control COnsider advancing diet later today if patient is tolerating Clinical Quality Measures DVT/VTE Risk/Contraindication: Risk Factor Score Per Nursin RFS Level Per Nursing on Admit: 4+=Very High LYN JACQUES DO 05/30/19 1130: Subjective Subjective/Events-last exam Pain controlled. No bowel function. Up to chair. Using IS minimally. Tolerating clears. Denies n/v fever sweats chills shortness of breath or chest pain. wbc down Objective Exam General Appearance: No Apparent Distress, WD/WN HEENT: PERRL/EOMI Neck: Non Tender, Supple Respiratory: Chest Non Tender, No Accessory Muscle Use, No Respiratory Distress Cardiovascular: Regular Rate, Rhythm, Normal Peripheral Pulses Gastrointestinal: soft, tenderness (incisional, incision c/d/i) Extremity: Normal Capillary Refill Neurologic/Psychiatric: Alert, Oriented x3, Normal Mood/Affect, Other (right sided weakness from previous stroke) Skin: Normal Color, Warm/Dry Assessment/Plan Assessment/Plan Assessment/Plan s/p lap hand assisted extended right colon resection Patient encouraged to use IS await bowel function on clears pain control hgb drop will hold on restarting eliquis today repeat labs in am scd's for dvt prophylaxis dc hamilton adequate urine output Supervisory-Addendum Brief Verification & Attestation Participated in pt care: history, MDM, physical Personally performed: exam, history, MDM, supervision of care Care discussed with: Medical Student Procedures: n/a Results interpretation: Verified all documentation Verification and Attestation of Medical Student E/M Service A medical student performed and documented this service in my presence. I reviewed and verified all information documented by the medical student and made modifications to such information, when appropriate. I personally performed the physical exam and medical decision making. Lyn Jacques, May 30, 2019,11:30 NORIS LOPEZ May 30, 2019 08:25 LYN JACQUES DO May 30, 2019 11:30
[2019-05-30] MEDS: PANTOPRAZOLE 20 MG TABLET (PROTONIX) PO SCH (08:37)
[2019-05-30] MEDS: ENALAPRIL 2.5 MG (VASOTEC) TAB PO SCH (08:37)
[2019-05-30] MEDS: DIGOXIN 0.125 MG (LANOXIN) TAB PO SCH (08:37)
[2019-05-30] MEDS: CARVEDILOL 6.25 MG (COREG) TAB PO SCH ×2 (08:37→20:02)
[2019-05-30] MEDS: AMIODARONE 200 MG (CORDARONE) TAB PO SCH (08:37)
[2019-05-30] MEDS: METHIMAZOLE TABLET 5 MG TABLET PO SCH (08:38)
--- NOTE | 2019-05-30 10:58 | Physical Therapy Daily Note ---
PT Daily Note-Current Subjective Pt. in bed. States he can't stand up or walk. Reports yesterday is legs gave out after a few steps. Pt. agrees to therapy. Transfers SCALE: Activities may be completed with or without assistive devices. 8-Cgvcbgmxhn-ebtocnz completes the activity by him/herself with no assistance from a helper. 5-Set-up or Clean-up Assistance-helper sets up or cleans up; patient completes activity. Haines assists only prior to or following the activity. 4-Supervision or Touching Assistance-helper provides verbal cues and/or touching/steadying and/or contact guard assistance as patient completes activity. Assistance may be provided throughout the activity or intermittently. 3-Partial/Moderate Assistance-helper does LESS THAN HALF the effort. Haines lifts, holds or supports trunk or limbs, but provides less than half the effort. 2-Substantial/Maximal Assistance-helper does MORE THAN HALF the effort. Haines lifts or holds trunk or limbs and provides more than half the effort. 3-Vjyihktyz-vlwajn does ALL the effort. Patient does none of the effort to complete the activity. Or, the assistance of 2 or more helpers is required for the patient to complete the activity. If activity was not attempted, code reason: 7-Patient Refused. 9-Not Applicable-not attempted and the patient did not perform the activity before the current illness, exacerbation or injury. 10-Not Attempted due to Environmental Limitations-(lack of equipment, weather restraints, etc.). 88-Not Attempted due to Medical Conditions or Safety Concerns. Lying to Sitting/Side of Bed(Q: 4 Sit to Stand (QC): 4 Chair/Jcx-sp-Pdnln Xfer(QC): 4 Weight Bearing Right Lower Extremity: Right Weight Bearing/Tolerated Left Lower Extremity: Left Weight Bearing/Tolerated Treatments transfers bed to chair Assessment Current Status: Good Progress Pt. required CGA with transfers today but patient did not want to walk outside o f room. Pt. up in bedside chair post session with call light and all needs met. PT Fpc Goals Fpc Goals PT Fpc Goals Time Frame: Jun 12, 2019 Roll Left & Right (QC): 5 Sit to Lying (QC): 5 Lying-Sitting on Side/Bed(QC): 5 Sit to Stand (QC): 5 Chair/Grr-fa-Jcqyg Xfer(QC): 5 Toilet Transfer (QC): 5 Does the Patient Walk: Yes Walk 10 feet (QC): 5 Walk 50ft with 2 Turns (QC): 5 Walk 150 ft (QC): 5 PT Plan Treatment/Plan Treatment Plan: Continue Plan of Care Treatment Plan: Bed Mobility, Education, Functional Activity Kristine, Functional Strength, Gait, Safety, Therapeutic Exercise, Transfers Treatment Duration: Jun 12, 2019 Frequency: 6 times per week Estimated Hrs Per Day: .25 hour per day Patient and/or Family Agrees t: Yes Time/GCodes Time In: 1000 Time Out: 1012 Total Billed Treatment Time: 12 Total Billed Treatment 1, FA 12' KENDRA GUALLPA PT May 30, 2019 10:57
--- NOTE | 2019-05-30 20:17 | NUR ---
NOTED NEW ONSET EDEMA TO BILAT UPPER EXTREMITIES, RIGHT +1 PITTING AND LEFT TRACE EDEMA. NOTIFIED DR. MUONZ. NEW ORDERS TO DECREASE LR FROM 125 ML/HR TO 50 ML/HR AT THIS TIME. WILL CONTINUE TO MONITOR.
--- NOTE | 2019-05-30 23:29 | OPERATIVE REPORT ---
DATE OF SERVICE: 05/28/2019 PREOPERATIVE DIAGNOSIS: Right colon cancer. POSTOPERATIVE DIAGNOSIS: Right colon cancer. PROCEDURE: Laparoscopic hand-assisted extended right colon resection. SURGEON: Lyn Villalobos DO LEAN SENSEI: Oliver Hunter DO, assisted in retraction, dissection and closure. ANESTHESIA: General. ESTIMATED BLOOD LOSS: Minimal. COMPLICATIONS: None. INDICATIONS: The patient is a 79-year-old male who was found to have a bleeding ulcerative mass when he is on Eliquis. The patient had biopsies performed that demonstrated this to be a well-differentiated invasive colonic adenocarcinoma. He understands risks and benefits of procedure and wished to proceed with procedure. Consent was signed in the chart. DESCRIPTION OF PROCEDURE: The patient was taken to the operating suite, was prepped and draped in sterile fashion. Surgical pause was performed. Midline incision was made for hand port. A hand port was inserted and then a 5 mm trocar was placed in the suprapubic region and a 12 mm trocar was placed in the subxiphoid region. The tattoo was found in the hepatic flexure and the right colon was then mobilized using cautery along the white line of Toldt along with mobilizing the hepatic flexure and transverse colon for extended right colon resection. Once this was mobilized directly placed into a midline position. The hand port was then opened and the right colon and transverse colon was able to be brought out through the midline incision of the hand port. A REESE linear stapler was then used to create a ojtx-vw-dqax anastomosis of ileum to transverse colon making sure adequate margins of resection are present. Once the kwas-yd-aigu anastomosis was created, LigaSure was then used to remove the mesentery removing the specimen. The mesenteric defect was then closed using 3-0 Vicryl in a running fashion and 3-0 Vicryl suture was also used to place a crotch stitch of the anastomosis. The abdomen was then irrigated with copious amounts of irrigation. There was no other pathology noted. The midline incision was then closed using 1-0 looped PDS. The abdomen was then reinsufflated and inspected. No other pathology again noted and the abdomen was then desufflated, the trocars were removed and the skin was then closed using nesha. Sterile bandages were applied. The patient tolerated procedure well without any complications. He was taken back to the recovery room in stable condition. Job ID: [id number] DocumentID: [id number] Dictated Date: 05/30/2019 11:56:03 [employer] Associate Date: 05/30/2019 15:22:46 Dictated By: LYN VILLALOBOS DO
[2019-05-31 00:30] VITALS: BP 102/54
[2019-05-31 03:28] VITALS: BP 119/57
--- NOTE | 2019-05-31 04:00 | NUR ---
THIS RN TOOK OVER FOR PREVIOUS RN, JACQUELYN. RAIMUNDO VALLADARES GAVE THIS NURSE PATTERN WHEEL MAKER REPORT AT THIS TIME.
[2019-05-31] MEDS: inSUlin ASPART (NovoLOG) 1 UNIT/0.01 ML (CHARGE PER UNIT) SC SCH ×4 (05:58→21:01)
--- NOTE | 2019-05-31 06:15 | NUR ---
PT WOKE UP AND REQUESTED EYE DROPS FOR DRY EYES. DR MUNOZ NOTIFIED AND ORDERED REFRESH EYE DROPS ONE DROP TO EACH EYE PRN.
[2019-05-31] MEDS ORDERED: ARTIFICAL TEARS 0.4 ML UNIT DOSE (REFRESH PLUS) OD PRN (06:30)
[2019-05-31] MEDS: morphine INJ 4 MG/ML 1 ML (VIAL/SYRINGE) IVP PRN (06:41)
[2019-05-31 08:00] VITALS: BP 141/65
--- NOTE | 2019-05-31 08:21 | Progress Note - Surgery ---
NORIS LOPEZ [facility] 05/31/19 0821: Subjective Date Seen by a Provider: May 31, 2019 Time Seen by a Provider: 08:16 Subjective/Events-last exam Patient is alert and in no acute distress. No family at bedside. patient is tolerating current diet had a small bowel movement yesterday since catheter was removed patient has urinated. Hx of urinary retention, nurse monitor, last bladder scan showed 308ml. Using IS Pain is 3/10 today with increased pain upon palpation. Required some pain medication today Incision is c/d/i, well approximated denies the following: chest pain, palpitations, SOB, Cough, N/V, feeling of fever and chills. Review of Systems General: No Chills HEENT: No Visual Changes, No Eye Pain Pulmonary: No Dyspnea, No Cough Cardiovascular: No: Chest Pain, Palpitations Gastrointestinal: No: Nausea, Vomiting, Abdominal Pain Genitourinary: No Dysuria; Retention Objective Exam Vital Signs Date Time Temp Pulse Resp B/P (MAP) Pulse Ox O2 Delivery O2 Flow Rate FiO2 05/31/19 03:28 36.7 61 15 119/57 (77) 94 Nasal Cannula 1.00 05/31/19 00:30 36.9 61 16 102/54 (70) 91 Nasal Cannula 1.00 05/30/19 20:00 Room Air 05/30/19 19:53 36.9 60 16 114/58 (76) 94 Room Air 05/30/19 15:43 37.0 64 18 114/54 (74) 90 Room Air 05/30/19 15:39 37.0 60 18 113/54 (73) 90 Room Air 05/30/19 12:25 92 Room Air 05/30/19 10:45 36.6 59 18 119/57 (77) 94 Nasal Cannula 1.00 05/30/19 09:00 96 Nasal Cannula 1.50 I & O 05/31/19 07:00 Intake Total 3020 ml Output Total 175 ml Balance 2845 ml Capillary Refill : Less Than 3 SecondsLess Than 3 Seconds General Appearance: No Apparent Distress, WD/WN HEENT: PERRL/EOMI Neck: Non Tender, Supple Respiratory: Chest Non Tender, No Accessory Muscle Use, No Respiratory Distress Cardiovascular: Regular Rate, Rhythm, Normal Peripheral Pulses Peripheral Pulses: 2+ Dorsalis Pedis (R), 2+ Left Dors-Pedis (L), 2+ Radial Pulses (R), 2+ Radial Pulses (L) Gastrointestinal: soft, tenderness (incisional, incision c/d/i) Extremity: Normal Capillary Refill Neurologic/Psychiatric: Alert, Oriented x3, Normal Mood/Affect, Other (right sided weakness from previous stroke) Skin: Normal Color, Warm/Dry Lymphatic: No Adenopathy Results Lab Laboratory Tests 05/30/19 10:51: Glucometer 192H 05/30/19 15:42: Glucometer 184H 05/30/19 20:33: Glucometer 213H 05/31/19 05:03: Glucometer 140H Microbiology 05/28/19 MRSA Screen - Final, Complete MRSA not isolated Assessment/Plan Assessment/Plan Assessment/Plan s/p lap hand assisted extended right colon resection Patient encouraged to use IS Consider advancing diet since patient has had a bowel movement pain control Repeat labs scd's for dvt prophylaxis Continue to monitor urine output patient has a hx of retention and is currently on tamsulosin. Clinical Quality Measures DVT/VTE Risk/Contraindication: Risk Factor Score Per Nursin RFS Level Per Nursing on Admit: 4+=Very High LYN VILLALOBOS DO 05/31/19 1632: Subjective Subjective/Events-last exam Patient feeling well. BM yesterday. Tolerating liquids. Pain controlled. Denies n/v fever sweats chills shortness of breath or chest pain. Using IS some. Objective Exam General Appearance: No Apparent Distress, WD/WN HEENT: PERRL/EOMI Neck: Non Tender, Supple Respiratory: Chest Non Tender, No Accessory Muscle Use, No Respiratory Distress Cardiovascular: Regular Rate, Rhythm Gastrointestinal: soft, tenderness (incisional, incision c/d/i) Extremity: Normal Capillary Refill Neurologic/Psychiatric: Alert, Oriented x3, Normal Mood/Affect, Other (right sided weakness from previous stroke) Skin: Normal Color, Warm/Dry Lymphatic: No Adenopathy Assessment/Plan Assessment/Plan Assessment/Plan s/p lap hand assisted extended right colon resection hypokaemia -replace increase activity bowel function- advance diet hgb stable restart eliquis likely home soon Supervisory-Addendum Brief Verification & Attestation Participated in pt care: history, MDM, physical Personally performed: exam, history, MDM, supervision of care Care discussed with: Medical Student Procedures: n/a Results interpretation: Verified all documentation Verification and Attestation of Medical Student E/M Service A medical student performed and documented this service in my presence. I reviewed and verified all information documented by the medical student and made modifications to such information, when appropriate. I personally performed the physical exam and medical decision making. Lyn Villalobos, May 31, 2019,16:31 [facility] LOPE[facility] May 31, 2019 08:21 LYN VILLALOBOS DO May 31, 2019 16:32
--- NOTE | 2019-05-31 08:54 | NUR ---
PT WISHES TO REST A LITTLE LONGER THIS MORNING BEFORE BEING DISTURBED. RN WILL TAKE MORNING MEDS WHEN PT AWAKES THIS AM
--- NOTE | 2019-05-31 08:59 | NUR ---
PT BLADDER SCANNED THIS AM BY BENTLEY EUBANKS, 308ML URINE FOUND IN BLADDER. PT WAS ENCOURAGED TO USE URINAL AND WAS ABLE TO VOID 200ML. WILL CONTINUE TO MONITOR
[2019-05-31] MEDS: DIGOXIN 0.125 MG (LANOXIN) TAB PO SCH (09:41)
[2019-05-31] MEDS: ENALAPRIL 2.5 MG (VASOTEC) TAB PO SCH (09:41)
[2019-05-31] MEDS: PANTOPRAZOLE 20 MG TABLET (PROTONIX) PO SCH (09:41)
[2019-05-31] MEDS: CARVEDILOL 6.25 MG (COREG) TAB PO SCH ×2 (09:41→21:03)
[2019-05-31] MEDS: METHIMAZOLE TABLET 5 MG TABLET PO SCH (09:41)
[2019-05-31] MEDS: AMIODARONE 200 MG (CORDARONE) TAB PO SCH (09:42)
[2019-05-31 10:57] LABS: HEMATOCRIT 32 % (40-54); HEMOGLOBIN 9.3 G/DL (13.3-17.7); MEAN CORPUSCULAR HGB CONC 29 G/DL (32-36); MEAN CORPUSCULAR VOLUME 73 FL (80-99); MEAN PLATELET VOLUME 10.1 FL (7.4-10.4); PLATELET COUNT 433 10^3/uL (130-400); WHITE BLOOD COUNT 12.6 10^3/uL (4.3-11.0)
[2019-05-31 10:58] LABS: MEAN CORPUSCULAR HEMOGLOBIN 21 PG (25-34)
[2019-05-31 11:13] LABS: BUN/CREATININE RATIO 9; CARBON DIOXIDE 23 MMOL/L (21-32); CHLORIDE 105 MMOL/L (98-107); CREATININE SERUM 0.78 MG/DL (0.60-1.30); GFR ESTIMATED > 60; GLUCOSE 184 MG/DL (70-105); MAGNESIUM 1.9 MG/DL (1.6-2.4); POTASSIUM 3.3 MMOL/L (3.6-5.0); SODIUM 138 MMOL/L (135-145)
[2019-05-31 15:31] VITALS: BP 131/62
[2019-05-31] MEDS: LACTATED RINGERS 1,000 ML IV SCH (15:45)
[2019-05-31] MEDS: POTASSIUM CL 10MEQ/50ML IVPB 50 ML IV SCH ×2 (16:48→17:51)
[2019-05-31] MEDS: APIXABAN 5 MG (ELIQUIS) TABLET PO SCH (19:54)
[2019-06-01 00:50] VITALS: BP 110/63
[2019-06-01 05:27] LABS: HEMATOCRIT 28 % (40-54); HEMOGLOBIN 8.4 G/DL (13.3-17.7); MEAN CORPUSCULAR HEMOGLOBIN 22 PG (25-34); MEAN CORPUSCULAR HGB CONC 30 G/DL (32-36); MEAN CORPUSCULAR VOLUME 73 FL (80-99); MEAN PLATELET VOLUME 10.5 FL (7.4-10.4); PLATELET COUNT 407 10^3/uL (130-400); WHITE BLOOD COUNT 9.3 10^3/uL (4.3-11.0)
[2019-06-01 05:52] LABS: BUN/CREATININE RATIO 9; CALCIUM 7.5 MG/DL (8.5-10.1); CARBON DIOXIDE 25 MMOL/L (21-32); CHLORIDE 107 MMOL/L (98-107); CREATININE SERUM 0.74 MG/DL (0.60-1.30); GFR ESTIMATED > 60; GLUCOSE 140 MG/DL (70-105); MAGNESIUM 1.7 MG/DL (1.6-2.4); POTASSIUM 3.6 MMOL/L (3.6-5.0); SODIUM 138 MMOL/L (135-145)
[2019-06-01] MEDS: inSUlin ASPART (NovoLOG) 1 UNIT/0.01 ML (CHARGE PER UNIT) SC SCH ×2 (06:40→12:00)
[2019-06-01 08:00] VITALS: BP 147/67
[2019-06-01] MEDS: ENALAPRIL 2.5 MG (VASOTEC) TAB PO SCH (09:02)
[2019-06-01] MEDS: DIGOXIN 0.125 MG (LANOXIN) TAB PO SCH (09:02)
[2019-06-01] MEDS: METHIMAZOLE TABLET 5 MG TABLET PO SCH (09:02)
[2019-06-01] MEDS: PANTOPRAZOLE 20 MG TABLET (PROTONIX) PO SCH (09:03)
[2019-06-01] MEDS: APIXABAN 5 MG (ELIQUIS) TABLET PO SCH (09:03)
[2019-06-01] MEDS: AMIODARONE 200 MG (CORDARONE) TAB PO SCH (09:03)
[2019-06-01] MEDS: CARVEDILOL 6.25 MG (COREG) TAB PO SCH (09:05)
--- NOTE | 2019-06-01 09:33 | NUR ---
PRIOR TO A.M. MEDICATIONS PULSE WAS 68 BPM, B/P IS 147/67. A.M. MEDICATIONS GIVEN BY THIS RN.
--- NOTE | 2019-06-01 09:51 | Physical Therapy Daily Note ---
PT Daily Note-Current Subjective Patient was not in pain and needed motivation to keep on topic. Appearance Patient was on toilet with PT left with RW in front and red pull cord in reach. Patient was told not to get up on his own and only pull the cord when finished to get a RN. Mental Status Patient Orientation: Person Transfers SCALE: Activities may be completed with or without assistive devices. 9-Gjyoilkoan-nhutscm completes the activity by him/herself with no assistance from a helper. 5-Set-up or Clean-up Assistance-helper sets up or cleans up; patient completes activity. [place] assists only prior to or following the activity. 4-Supervision or Touching Assistance-helper provides verbal cues and/or touching/steadying and/or contact guard assistance as patient completes activity. Assistance may be provided throughout the activity or intermittently. 3-Partial/Moderate Assistance-helper does LESS THAN HALF the effort. [place] lifts, holds or supports trunk or limbs, but provides less than half the effort. 2-Substantial/Maximal Assistance-helper does MORE THAN HALF the effort. [place] lifts or holds trunk or limbs and provides more than half the effort. 9-Vzzuoshuo-wrhbtd does ALL the effort. Patient does none of the effort to complete the activity. Or, the assistance of 2 or more helpers is required for the patient to complete the activity. If activity was not attempted, code reason: 7-Patient Refused. 9-Not Applicable-not attempted and the patient did not perform the activity before the current illness, exacerbation or injury. 10-Not Attempted due to Environmental Limitations-(lack of equipment, weather restraints, etc.). 88-Not Attempted due to Medical Conditions or Safety Concerns. Sit to Stand (QC): 4 (CGA) Chair/Ebc-fz-Mmvcb Xfer(QC): 4 (CGA) Toilet Transfer (QC): 3 (20% help with lowering to toilet.) Weight Bearing Right Lower Extremity: Right Weight Bearing/Tolerated Left Lower Extremity: Left Weight Bearing/Tolerated Gait Training Distance: 15' Walk 10 feet (QC): 4 (CGA) Gait Assistive Device: FWW Patient ambulates with forward posture and requires CGA for safety especially with turning to sit. Exercises Seated Therapy Exercises: Ankle pumps, Long arc quads, Hip flexion Seated Reps: 10 Assessment Current Status: Good Progress Patient requires assistance with staying on topic with activities. Patient will complete activities but must not be given an option to complete them. From a PT standpoint, patient will require assistance with toileting and ambulation for s afety upon dismissal from hospital. PT Data Modeler Goals Usp Goals PT Usp Goals Time Frame: Jun 12, 2019 Roll Left & Right (QC): 5 Sit to Lying (QC): 5 Lying-Sitting on Side/Bed(QC): 5 Sit to Stand (QC): 5 Chair/Ued-as-Kkgxp Xfer(QC): 5 Toilet Transfer (QC): 5 Does the Patient Walk: Yes Walk 10 feet (QC): 5 Walk 50ft with 2 Turns (QC): 5 Walk 150 ft (QC): 5 PT Plan Problem List Problem List: Activity Tolerance, Functional Strength, Safety, Balance, Gait, Transfer, Bed Mobility Treatment/Plan Treatment Plan: Continue Plan of Care Treatment Plan: Bed Mobility, Education, Functional Activity Kristine, Functional Strength, Gait, Safety, Therapeutic Exercise, Transfers Treatment Duration: Jun 12, 2019 Frequency: 6 times per week Estimated Hrs Per Day: .25 hour per day Patient and/or Family Agrees t: Yes Safety Risks/Education Patient Education: Gait Training, Transfer Techniques, Correct Positioning, Sa fety Issues Teaching Recipient: Patient Teaching Methods: Demonstration, Discussion Response to Teaching: Verbalize Understanding, Return Demonstration, Reinforcement Needed Time/GCodes Time In: 0835 Time Out: 0850 Total Billed Treatment Time: 15 Total Billed Treatment Visit 1 FA 15 CRISTIAN SAUCEDA PT Jun 01, 2019 09:50
[2019-06-01] MEDS ORDERED: Hydrocodone Bit/Acetaminophen PO (11:14)
[2019-06-01] MEDS ORDERED: DOCU-143 PO (11:14)
--- NOTE | 2019-06-01 11:15 | Discharge Inst-Simple/Standard ---
Discharge Inst-Standard Discharge Medications New, Converted or Re-Newed RX: RX on Chart Patient Instructions/Follow Up Plan of Care/Instructions/FU: 2 weeks Griselda Activity as Tolerated: No Discharge Diet: Regular Diet Other Inst to Patient Follow up Appt: Make appointment for 2 week Griselda. Instructions: No lifting greater than 10 pounds. No strenuous activity. May shower in 24 hours, no tub bath or soaking. Use incentive spirometer at home as directed. No Smoking Skin/Wound Care: You have nesha over your incision. Keep clean and dry. Symptoms to Report: Appetite Changes, Extremity Discoloration, Numbness/Tingling, Swelling Increased, Bleeding Excessive, Eyesight Changes, Pain Increased, Urine Color Change, Constipation(Persistent), Fever over 101 degree F, Pain/Pressure in chest, Urinating Difficulty, Cough Up/Vomit Blood, Heart Beat Irreg/Pounding, Pain/Pressure in jaw, Vaginal Bleeding Increase, Cramps in feet or legs, Lightheadedness, Pain/Pressure in shoulder, Diarrhea(Persistent), Memory Changes Suddenly, Questions/Concerns, Weight gain consecutive days, Dizziness/Fainting, Nausea/Vomiting, Shortness of Breath, Weight gain over 2 pounds If questions or concerns contact your physician Or seek help at emergency department. LYN JACQUES DO Jun 01, 2019 11:15
--- NOTE | 2019-06-01 11:15 | NUR ---
Important Message from Medicare presented, reviewed, signed and placed in patient chart. Patient voiced no intention to appeal and deny any needs or further questions at this time.
--- NOTE | 2019-06-01 11:16 | NUR ---
CM/SS follow up. Plan: The patient will return to [facility] with transportation at 1:00 p.m. by Kevin. CM/SS called the facility and spoke with the patients physician Dr. Villalobos who are in agreement with discharge time. CM/SS gave the facility the nurses (Nani) number for them to call when they are on the way. They verbalized understanding. No other needs at this time. Addendum: 06/01/19 at 1217 by FIDELINA DICKEY SSS This is an assisted living not skilled facility.
--- NOTE | 2019-06-01 11:39 | Discharge Inst-Skilled Nursing ---
Discharge Inst-Skilled NF Reconcile Patient Problems Problems Reviewed?: Yes Chief Complaint John Payne is a 79 year old man with past medical history of hypertension, hyperlipidemia, atrial fibrillation, heart failure with reduced ejection fraction, hyperthyroidism, who presented for hemicolectomy due to colon cancer. He was recently admitted with anemia and had biopsies performed of a colonic ulceration. Those biopsies returned positive for colon cancer. He underwent hemicolectomy 05/27. Upon my examination, his only complaints R thirst and abdominal pain. He says the abdominal pain isn't present since the surgery. He would like some water this morning. He also would like some coffee. He denies any fevers or chills. Denies any chest pain, shortness of breath, or cough. He denies any nausea or vomiting. He is not yet passing gas. He has been getting up and walking in the [place]. He feels more weak than usual. Patient Instructions Patient Instructions: Take medications as prescribed. Participate in therapies. Consult/Follow Up/Orders Follow Up Appt.: Next long term rounds Skilled NF Admit to: Via [facility] Certification ([facility]) I certify that SNF services are required to be given on an inpatient basis because of the above named patient's need for custodial care on a continuing basis for the conditions(s) for which he/she was receiving inpatient hospital services prior to his/her transfer to the SNF. Retirement Facility Order: Nursing Services, Hammer Heater-Evaluate & Treat, Physical Therapy-Evaluate & Treat, Speech Language-Evaluate & Treat Oxygen Delivery Method: Nasal Cannula Discharge Diet: Regular Diet Daily Activity as Tolerated: Yes New & Resume Previous Orders Gwen Jamil Jun 01, 2019 11:37 GWEN JAMIL MD Jun 01, 2019 11:39
[2019-06-01] MEDS: LACTATED RINGERS 1,000 ML IV SCH (12:00)
--- NOTE | 2019-06-01 12:41 | NUR ---
REPORT CALLED TO [facility] IN [place] AT THIS TIME, DISCHARGE INSTRUCTIONS REVIEWED WITH NURSE WHO WILL ASSUME CARE OF THIS PATIENT WHEN HE ARRIVES BACK AT [facility]. FELLMONGERY WORKER ARRANGED TO PICK PATIENT UP DOWNSTAIRS AROUND 1:00 P.M.
== END 2019-06-01 13:20 | DRG 330 ==
LOC: 4TH 08:51
PROVIDERS: ADMIT Surgery; ATTEND Surgery
PROC: 0DTF0ZZ Resection of Right Large Intestine, Open Approach (ICD-10-PCS; principal; 2019-05-28 10:45)
DX: C18.2 Malignant neoplasm of ascending colon (principal); I11.0 Hypertensive heart disease with heart failure; I50.22 Chronic systolic (congestive) heart failure; I69.351 Hemiplegia and hemiparesis following cerebral infarction affecting right dominant side; I48.0 Paroxysmal atrial fibrillation; J44.9 Chronic obstructive pulmonary disease, unspecified; E05.90 Thyrotoxicosis, unspecified without thyrotoxic crisis or storm; E78.00 Pure hypercholesterolemia, unspecified; K21.9 Gastro-esophageal reflux disease without esophagitis; E87.6 Hypokalemia; M19.91 Primary osteoarthritis, unspecified site; E11.65 Type 2 diabetes mellitus with hyperglycemia; D50.9 Iron deficiency anemia, unspecified; R79.89 Other specified abnormal findings of blood chemistry; E78.5 Hyperlipidemia, unspecified; Z87.891 Personal history of nicotine dependence; I25.10 Atherosclerotic heart disease of native coronary artery without angina pectoris; Z95.5 Presence of coronary angioplasty implant and graft; Z95.810 Presence of automatic (implantable) cardiac defibrillator; Z85.820 Personal history of malignant melanoma of skin
CPT/HCPCS: 36415; 80048; 82962; 83735; 85027; 86850; 86900; 86901; 87081; 94664

== ENCOUNTER 2019-06-05 08:49 | Emergency (ER) | payer MEDICARE, MEDICAID ==
[~2019-06-05] VITALS: Ht 170 cm; Wt 73.4 kg
[~2019-06-05 08:49] MED LIST changes: +DOCU-143 PO; +FERR-84 PO; +Hydrocodone Bit/Acetaminophen PO
[2019-06-05 09:08] LABS: BASOPHILS # (AUTO) 0.1 10^3/uL (0.0-0.1); BASOPHILS % (AUTO) 1 % (0-10); EOSINOPHILS # (AUTO) 0.5 10^3/uL (0.0-0.3); EOSINOPHILS % (AUTO) 4 % (0-10); HEMATOCRIT 33 % (40-54); HEMOGLOBIN 9.9 G/DL (13.3-17.7); LYMPHOCYTES # (AUTO) 1.8 X 10^3 (1.0-4.0); LYMPHOCYTES % (AUTO) 16 % (12-44); MEAN CORPUSCULAR HEMOGLOBIN 22 PG (25-34); MEAN CORPUSCULAR HGB CONC 30 G/DL (32-36); MEAN CORPUSCULAR VOLUME 73 FL (80-99); MEAN PLATELET VOLUME 9.9 FL (7.4-10.4); MONOCYTES # (AUTO) 1.1 X 10^3 (0.0-1.0); MONOCYTES % (AUTO) 9 % (0-12); NEUTROPHILS # (AUTO) 8.1 X 10^3 (1.8-7.8); NEUTROPHILS % (AUTO) 71 % (42-75); PLATELET COUNT 662 10^3/uL (130-400); WHITE BLOOD COUNT 11.4 10^3/uL (4.3-11.0)
--- NOTE | 2019-06-05 09:13 | ED General ---
General Chief Complaint: General Problems/Pain Stated Complaint: ABNORMAL LABS Nursing Triage Note: Pt to ED via EMS from [facility]. EMS reports facility called EMS due to abnormal labs. Pt's platelet count was 651 this morning. Pt has bilat lower extremity edema. Pt reports feeling stronger than ever and only complaint is an ingrown toenail. Nursing Sepsis Screen: No Definite Risk Source of Information: Patient (SOMEWHAT LIMITED HISTORIAN), EMS, Old Records History of Present Illness Date Seen by Provider: Jun 05, 2019 Time Seen by Provider: 08:51 Initial Comments PT ARRIVES VIA EMS FROM [facility] PT HAD ROUTINE OUTPATIENT LAB THIS AM, AND PLATELET COUNT WAS ELEVATED AT 651, 000, SO SENT TO ER PT HAS NO SYMPTOMS PT WAS ADMITTED 05/18/19-05/25/19 FOR ANEMIA AND WAS FOUND TO HAVE COLON CANCER PT THEN ADMITTED 05/27-06/01/19 FOR RIGHT COLON RESECTION. PT HAS NO COMPLAINTS REGARDING SURGICAL SITE AND NO ABDOMINAL PAIN, NO NAUSE A/VOMITING/DIARRHEA/CONSTIPATION PT HAS CHF, PAROXYSMAL ATRIAL FIBRILLATION AND HAS HAD PRIOR CVA WITH RIGHT SIDE WEAKNESS, AND IS ON ASPIRIN AND ELIQUIS. NO EXCESSIVE BLEEDING OR BRUISING. PCP: DR. LINDA Allergies and Home Medications Allergies Coded Allergies: No Known Drug Allergies (Verified , 05/21/19) Home Medications Amiodarone HCl 200 Mg Tablet, 200 MG PO DAILY, (Reported) Apixaban 5 Mg Tablet, 5 MG PO BID, (Reported) Aspirin 81 Mg Tablet.dr, 81 MG PO DAILY, (Reported) Atorvastatin Calcium 80 Mg Tablet, 80 MG PO DAILY, (Reported) Carvedilol 6.25 Mg Tablet, 6.25 MG PO BID, (Reported) HOLD FOR SYSTOLIC BLOOD PRESSURE <100 OR HR <50 - CALL NURSE Cholecalciferol (Vitamin D3) 50 Mcg Capsule, 50 MCG PO DAILY, (Reported) Digoxin 125 Mcg Tablet, 125 MCG PO DAILY, (Reported) Docusate Sodium 100 Mg Capsule, 100 MG PO BID Prescribed by: LYN JACQUES on 06/01/19 1114 Enalapril Maleate 2.5 Mg Tablet, 2.5 MG PO DAILY, (Reported) Ferrous Sulfate 325 Mg Tablet, 325 MG PO Q48H, (Reported) Ferrous Sulfate 325 Mg Tablet, 325 MG PO Q48H, (Reported) Furosemide 40 Mg Tablet, 40 MG PO DAILY, (Reported) Methimazole 5 Mg Tablet, 5 MG PO DAILY, (Reported) Omeprazole 20 Mg Capsule.dr, 20 MG PO DAILY, (Reported) Propylene Glycol 10 Ml Drops, 1 DROP OU Q12H PRN for DRY EYES, (Reported) Spironolactone 25 Mg Tablet, 25 MG PO DAILY, (Reported) [Hydrocodone Bit/Acetaminophen] Y TAB, 1 TAB PO Q4H PRN for PAIN-MODERATE (5-7) Prescribed by: LYN JACQUES on 06/01/19 1114 Patient Home Medication List Home Medication List Reviewed: Yes Review of Systems Review of Systems Constitutional: no symptoms reported; No chills, No diaphoresis, No dizziness, No fever EENTM: no symptoms reported Respiratory: no symptoms reported; No cough, No dyspnea on exertion, No orthopnea, No short of breath Cardiovascular: no symptoms reported; No chest pain, No syncope Gastrointestinal: see HPI; No abdominal pain, No constipation, No diarrhea, No loss of appetite, No nausea, No vomiting Genitourinary: no symptoms reported Musculoskeletal: no symptoms reported; No back pain, No neck pain Skin: no symptoms reported; No rash Psychiatric/Neurological: No Symptoms Reported; Denies Headache, Denies Numbness; Pre-Existing Deficit (RIGHT SIDE PARALYSIS DUE TO CVA 03/2018); Denies Tingling Hematologic/Lymphatic: See HPI Immunological/Allergic: no symptoms reported Past Iizncsa-Kegcct-Uonvpc Hx Past Med/Social Hx: Reviewed and Corrections made Patient Social History Alcohol Use: Denies Use Recreational Drug Use: No Smoking Status: Former Smoker Type Used: Cigarettes, Pipe Former Smoker, Quit: Apr 17, 2018 Recent Foreign Travel: No Contact w/Someone Who Travel: No Recent Infectious Disease Expo: No Recent Hopitalizations: Yes (05/18/19-05/25/19 FOR ANEMIA; 05/27-06/01/19 FOR R COLON RESECTION) Immunizations Up To Date Tetanus Booster (TDap): Unknown Date of Pneumonia Vaccine: Mar 19, 2019 Date of Influenza Vaccine: Dec 16, 2018 Seasonal Allergies Seasonal Allergies: No Past Medical History Surgeries: Yes (SEE BELOW) Abdominal, Bowel Surgery, Cardiac, Defibrillator Respiratory: No Cardiac: Yes (DEFIBRILLATOR; CARDIAC CATH-EXTENSIVE DZ-NO INTERVENTION; V-TACH) Atrial Fibrillation, Chronic Edema/Swelling, Coronary Artery Disease, High Cholesterol, Hypertension, Irregular Heartbeat Neurological: Yes (CVA WITH RIGHT SIDE WEAKNESS 03/2018) Stroke Reproductive Disorders: No Genitourinary: Yes (INCONTINENCE) Renal Failure Gastrointestinal: Yes (COLON CANCER DX 05/2019) Gastroesophageal Reflux, Polyps Musculoskeletal: Yes (Rt hemiparesis since CVA 03/2018) Arthritis Endocrine: Yes Diabetes, Non-Insulin dep HEENT: No Loss of Vision: Denies Hearing Impairment: Denies Cancer: Yes (R COLON RESECTION 05/2019) Skin, Melanoma, Colon Did You Recieve Any Treatments: Yes What Type of Treatment Did You: Surgical Intervention Psychosocial: No Integumentary: No Blood Disorders: Yes (ANEMIA) Adverse Reaction/Blood Tranf: No YES Family Medical History Patient reports no known family medical history. Diabetes PSH: -SKIN CANCER REMOVED WITH SKIN GRAFT -CARDIAC CATH 2015--EXTENSIVE DISEASE, NOT AMENABLE TO INTERVENTION. -DEFIBRILLATOR -COLONOSCOPY 05/2019 -RIGHT COLON RESECTION FOR CANCER 05/28/19 Physical Exam Vital Signs Vital Signs - First Documented 06/05/19 08:49 Temp 36.0 Pulse 67 Resp 25 B/P (MAP) 144/55 (84) Pulse Ox 98 O2 Delivery Room Air Capillary Refill : Less Than 3 Seconds Height, Weight, BMI Height: 5'7.00" Weight: 190lbs. 2.0oz. [id number]; 25.00 BMI Method:Estimated General Appearance: No Apparent Distress, WD/WN HEENT: PERRL/EOMI, Other (EDENTULOUS, RIGHT FACIAL DROOP) Neck: Normal Inspection Respiratory: Normal Breath Sounds, No Accessory Muscle Use, No Respiratory Distress Cardiovascular: Regular Rate, Rhythm, No Murmur, Normal Peripheral Pulses Gastrointestinal: Non Tender, Soft, Other (SURGICAL INCISIONS CLEAN/DRY/INTACT. VERY SLIGHT ERYTHEMA TO SKIN EDGES, ALL RIGO INTACT. NO DRAINAGE. NO STREAKS, ) Back: No CVA Tenderness Extremity: Non Tender, Pedal Edema (TRACE BILATERALLY) Neurologic/Psychiatric: Alert, Oriented x3, Normal Mood/Affect, Other (RIGHT SIDE PARALYSIS, INCLUDING RIGHT FACIAL DROOP) Skin: Normal Color, Warm/Dry Progress/Results/Core Measures Suspected Sepsis Recent Fever Within 48 Hours: No Infection Criteria Present: None New/Unexplained Altered Menta: No Sepsis Screen: No Definite Risk SIRS Temperature: Pulse: 67 Respiratory Rate: 25 Laboratory Tests 06/05/19 09:00: White Blood Count 11.4H Blood Pressure 144 /55 Mean: 84 Laboratory Tests 06/05/19 09:00: Creatinine 0.96, INR Comment 1.2, Platelet Count 662H, Total Bilirubin 0.4 Results/Orders Lab Results Laboratory Tests Test 06/05/19 09:00 Range/Units White Blood Count 11.4 H 4.3-11.0 10^3/uL Red Blood Count 4.53 4.35-5.85 10^6/uL Hemoglobin 9.9 L 13.3-17.7 G/DL Hematocrit 33 L 40-54 % Mean Corpuscular Volume 73 L 80-99 FL Mean Corpuscular Hemoglobin 22 L 25-34 PG Mean Corpuscular Hemoglobin Concent 30 L 32-36 G/DL Red Cell Distribution Width 10.0-14.5 % Platelet Count 662 H 130-400 10^3/uL Mean Platelet Volume 9.9 7.4-10.4 FL Neutrophils (%) (Auto) 71 42-75 % Lymphocytes (%) (Auto) 16 12-44 % Monocytes (%) (Auto) 9 0-12 % Eosinophils (%) (Auto) 4 0-10 % Basophils (%) (Auto) 1 0-10 % Neutrophils # (Auto) 8.1 H 1.8-7.8 X 10^3 Lymphocytes # (Auto) 1.8 1.0-4.0 X 10^3 Monocytes # (Auto) 1.1 H 0.0-1.0 X 10^3 Eosinophils # (Auto) 0.5 H 0.0-0.3 10^3/uL Basophils # (Auto) 0.1 0.0-0.1 10^3/uL Prothrombin Time 15.2 H 12.2-14.7 SEC INR Comment 1.2 0.8-1.4 Activated Partial Thromboplast Time 35 24-35 SEC Sodium Level 138 135-145 MMOL/L Potassium Level 4.5 3.6-5.0 MMOL/L Chloride Level 104 98-107 MMOL/L Carbon Dioxide Level 22 21-32 MMOL/L Anion Gap 12 5-14 MMOL/L Blood Urea Nitrogen 9 7-18 MG/DL Creatinine 0.96 0.60-1.30 MG/DL Estimat Glomerular Filtration Rate > 60 BUN/Creatinine Ratio 9 Glucose Level 160 H 70-105 MG/DL Calcium Level 7.8 L 8.5-10.1 MG/DL Corrected Calcium 8.5 8.5-10.1 MG/DL Magnesium Level 1.9 1.6-2.4 MG/DL Total Bilirubin 0.4 0.1-1.0 MG/DL Aspartate Amino Transf (AST/SGOT) 34 5-34 U/L Alanine Aminotransferase (ALT/SGPT) 21 0-55 U/L Alkaline Phosphatase 72 40-136 U/L Total Protein 6.1 L 6.4-8.2 GM/DL Albumin 3.1 L 3.2-4.5 GM/DL Digoxin Level 0.88 0.80-2.00 NG/ML My Orders Orders - DANIEL MCKEON DO Ed Iv/Invasive Line Start (06/05/19 09:00) Ekg Tracing (06/05/19 09:00) Monitor-Rhythm Ecg Trace Only (06/05/19 09:00) Chest 1 View, Ap/Pa Only (06/05/19 09:00) Cbc With Automated Diff (06/05/19:00) Comprehensive Metabolic Panel (06/05/19 09:00) Digoxin (06/05/19 09:00) Magnesium (06/05/19 09:00) Protime With Inr (06/05/19:00) Partial Thromboplastin Time (06/05/19 09:00) Vital Signs/I&O 06/05/19 08:49 Temp 36.0 Pulse 67 Resp 25 B/P (MAP) 144/55 (84) Pulse Ox 98 O2 Delivery Room Air Capillary Refill : Less Than 3 Seconds Blood Pressure Mean: 84 Progress Note : Progress Note COMPLETELY ASYMPTOMATIC DURING ER STAY UNEVENTFUL ER STAY ECG Initial ECG Impression Date: Jun 05, 2019 Initial ECG Impression Time: 09:04 Initial ECG Rate: 66 Initial ECG Rhythm: Normal Sinus (RBBB) Initial ECG Impression: Nonspecific Changes (INFERIOR Q WAVES) Diagnostic Imaging Comments CXR--MILD ATELECTASIS OR TRACE EFFUSION LEFT BASE, PER RADIOLOGIST REPORT AT 1009 Reviewed: Reviewed by Me Departure Communication (Admissions) 1010--SPOKE WITH DR. SÁNCHEZ, NOTHING TO BE DONE AT THIS TIME FOR ELEVATED PLATELETS THEY ARE LIKELY REACTIVE DUE TO ANEMIA. ADVISES RECHECK IN A COUPLE OF WEEKS, WHEN HE FOLLOWS UP WITH AN ONCOLOGIST---IS UNKNOWN IF PT HAS AN APPOINTMENT SCHEDULED YET WITH ONCOLOGY 1012--SPOKE WITH PROCESSING ANALYST KRYSTYNA MEMBRENO, AT DR. LINDA'S OFFICE. PT HAS AN APPOINTMENT 06/17/[address] LINDA. THEY WILL ARRANGE FOR OUTPATIENT REPEAT OF LAB AND FOLLOW UP WITH ONCOLOGY IF THAT HAS NOT ALREADY BEEN DONE. Impression Primary Impression: Elevated platelet count Additional Impressions: Mild anemia S/P RECENT COLON RESECTION FOR COLON CANCER Disposition: 03 XFER SNF Condition: Stable Departure-Patient Inst. Referrals: TENNILLE LINDA MD (PCP/Family) Primary Care Physician Patient Instructions: Anemia Caused by Low Iron, Adult (DC), Thrombocytosis Add. Discharge Instructions: CONTINUE YOUR REGULAR MEDICATIONS PRESCRIBED KEEP YOUR APPOINTMENT WITH DR. LINDA 06/17/19. THEY WILL ARRANGE FOR OUTPATIENT LABS AND ONCOLOGY REFERRAL IF ONE HAS NOT BEEN MADE YET. All discharge instructions reviewed with patient and/or family. Voiced understanding. DANIEL MCKEON DO Jun 05, 2019 09:12
[2019-06-05 09:24] LABS: INR 1.2 (0.8-1.4); PROTHROMBIN TIME PATIENT 15.2 SEC (12.2-14.7)
[2019-06-05 09:29] LABS: ALANINE AMINOTRANSFERASE 21 U/L (0-55); ALBUMIN 3.1 GM/DL (3.2-4.5); ALKALINE PHOSPHATASE 72 U/L (40-136); BILIRUBIN,TOTAL 0.4 MG/DL (0.1-1.0); BUN/CREATININE RATIO 9; CALCIUM 7.8 MG/DL (8.5-10.1); CARBON DIOXIDE 22 MMOL/L (21-32); CHLORIDE 104 MMOL/L (98-107); CREATININE SERUM 0.96 MG/DL (0.60-1.30); GFR ESTIMATED > 60; GLUCOSE 160 MG/DL (70-105); MAGNESIUM 1.9 MG/DL (1.6-2.4); POTASSIUM 4.5 MMOL/L (3.6-5.0); SODIUM 138 MMOL/L (135-145); TOTAL PROTEIN 6.1 GM/DL (6.4-8.2)
--- NOTE | 2019-06-05 09:37 | Diagnostic Imaging Report ---
HISTORY: Bilateral arm swelling TECHNIQUE: Frontal view of the chest COMPARISON: 05/22/2019 FINDINGS: There is mild blunting at the left costophrenic angle. Otherwise, the lungs appear clear. No pneumothorax is seen. The cardiac silhouette is normal in size. The left-sided automatic implantable cardiac defibrillator appears stable. IMPRESSION: 1. Mild blunting at the left costophrenic angle, may represent mild atelectasis and/or trace effusion. Dictated by: Dictated on workstation # [id number]
[2019-06-05 11:00] VITALS: BP 117/47
== END 2019-06-05 11:00 | disposition home or self-care (01) ==
LOC: EDUNIT# 08:49 → ER 08:51
DX: R79.89 Other specified abnormal findings of blood chemistry (principal); D64.9 Anemia, unspecified; I11.0 Hypertensive heart disease with heart failure; I50.9 Heart failure, unspecified; I48.0 Paroxysmal atrial fibrillation; I25.10 Atherosclerotic heart disease of native coronary artery without angina pectoris; E78.00 Pure hypercholesterolemia, unspecified; E11.9 Type 2 diabetes mellitus without complications; Z86.73 Personal history of transient ischemic attack (TIA), and cerebral infarction without residual deficits; Z86.010 Personal history of colon polyps; Z85.828 Personal history of other malignant neoplasm of skin; Z85.038 Personal history of other malignant neoplasm of large intestine; Z79.01 Long term (current) use of anticoagulants; Z79.82 Long term (current) use of aspirin
CPT/HCPCS: 36415; 71045; 80053; 80162; 83735; 85025; 85610; 85730; 93005; 93041

== ENCOUNTER → 2019-07-28 | Outpatient (CLI) | payer MEDICARE, MEDICAID | LOC: RAD 07-14 08:35 | PROVIDERS: ATTEND Internal Medicine Hematology & Oncology | DX: C18.9 Malignant neoplasm of colon, unspecified (principal); K80.20 Calculus of gallbladder without cholecystitis without obstruction ==

== ENCOUNTER 2019-07-29 09:52 | Outpatient (RCR) | payer MEDICARE, MEDICAID ==
[2019-07-29 11:24] LABS: BASOPHILS % (AUTO) 0 % (0-10); EOSINOPHILS # (AUTO) 0.3 10^3/uL (0.0-0.3); EOSINOPHILS % (AUTO) 3 % (0-10); HEMATOCRIT 36 % (40-54); HEMOGLOBIN 11.4 G/DL (13.3-17.7); LYMPHOCYTES # (AUTO) 1.4 X 10^3 (1.0-4.0); LYMPHOCYTES % (AUTO) 14 % (12-44); MEAN CORPUSCULAR HEMOGLOBIN 26 PG (25-34); MEAN CORPUSCULAR HGB CONC 32 G/DL (32-36); MEAN CORPUSCULAR VOLUME 82 FL (80-99); MONOCYTES % (AUTO) 10 % (0-12); NEUTROPHILS # (AUTO) 7.4 X 10^3 (1.8-7.8); NEUTROPHILS % (AUTO) 73 % (42-75); PLATELET COUNT 332 10^3/uL (130-400); RED CELL DISTRIBUTION WIDTH 25.2 % (10.0-14.5); WHITE BLOOD COUNT 10.1 10^3/uL (4.3-11.0)
[2019-07-29 11:46] LABS: ALBUMIN 3.8 GM/DL (3.2-4.5); BILIRUBIN,TOTAL 0.3 MG/DL (0.1-1.0); CALCIUM 9.1 MG/DL (8.5-10.1); CREATININE SERUM 1.4 MG/DL (0.60-1.30); POTASSIUM 4.9 MMOL/L (3.6-5.0); TOTAL PROTEIN 6.6 GM/DL (6.4-8.2)
== END 2019-10-27 | disposition home or self-care (01) ==
LOC: ONC 09:52
PROVIDERS: ATTEND Internal Medicine Hematology & Oncology
DX: C18.2 Malignant neoplasm of ascending colon (principal); I48.91 Unspecified atrial fibrillation; I25.10 Atherosclerotic heart disease of native coronary artery without angina pectoris; I50.9 Heart failure, unspecified; E11.9 Type 2 diabetes mellitus without complications; J44.9 Chronic obstructive pulmonary disease, unspecified; D63.0 Anemia in neoplastic disease; R47.01 Aphasia; Z90.49 Acquired absence of other specified parts of digestive tract; Z79.01 Long term (current) use of anticoagulants
CPT/HCPCS: 80053; 82378; 85025; G0463; 99214

== ENCOUNTER 2019-09-20 12:48 | Emergency (ER) | payer MEDICARE, MEDICAID ==
[~2019-09-20] VITALS: Ht 167.7 cm; Wt 70.4 kg
[2019-09-20 12:48] VITALS: BP 132/76
--- NOTE | 2019-09-20 13:13 | ED Head Injury ---
General Chief Complaint: Trauma-Non Activation Stated Complaint: FALL Source: patient Exam Limitations: no limitations History of Present Illness Date Seen by Provider: Sep 20, 2019 Time Seen by Provider: 13:09 Initial Comments To ER with reports of a fall. He arrives by EMS from [facility] with reports of this injury. He was in his closet to grab some tools out of a coffee can on the floor, he bent forward and fell forward striking the right side of his head on the floor. No loss of consciousness no neck pain. Occurred: just prior to arrival Severity: moderate Location: frontal Loss of Consciousness: no loss of consciousness Allergies and Home Medications Allergies Coded Allergies: No Known Drug Allergies (Verified , 05/21/19) Home Medications Amiodarone HCl 200 Mg Tablet, 200 MG PO DAILY, (Reported) Apixaban 5 Mg Tablet, 5 MG PO BID, (Reported) Aspirin 81 Mg Tablet.dr, 81 MG PO DAILY, (Reported) Atorvastatin Calcium 80 Mg Tablet, 80 MG PO DAILY, (Reported) Carvedilol 6.25 Mg Tablet, 6.25 MG PO BID, (Reported) HOLD FOR SYSTOLIC BLOOD PRESSURE <100 OR HR <50 - CALL NURSE Cholecalciferol (Vitamin D3) 50 Mcg Capsule, 50 MCG PO DAILY, (Reported) Digoxin 125 Mcg Tablet, 125 MCG PO DAILY, (Reported) Docusate Sodium 100 Mg Capsule, 100 MG PO BID Prescribed by: LYN JACQUES on 06/01/191113 Enalapril Maleate 2.5 Mg Tablet, 2.5 MG PO DAILY, (Reported) Ferrous Sulfate 325 Mg Tablet, 325 MG PO Q48H, (Reported) Ferrous Sulfate 325 Mg Tablet, 325 MG PO Q48H, (Reported) Furosemide 40 Mg Tablet, 40 MG PO DAILY, (Reported) Methimazole 5 Mg Tablet, 5 MG PO DAILY, (Reported) Omeprazole 20 Mg Capsule.dr, 20 MG PO DAILY, (Reported) Propylene Glycol 10 Ml Drops, 1 DROP OU Q12H PRN for DRY EYES, (Reported) Spironolactone 25 Mg Tablet, 25 MG PO DAILY, (Reported) [Hydrocodone Bit/Acetaminophen] Y TAB, 1 TAB PO Q4H PRN for PAIN-MODERATE (5-7) Prescribed by: LYN JACQUES on 06/01/19 1114 Patient Home Medication List Home Medication List Reviewed: Yes Review of Systems Review of Systems Constitutional: see HPI Eyes: No Symptoms Reported Ears, Nose, Mouth, Throat: no symptoms reported Respiratory: no symptoms reported Cardiovascular: no symptoms reported Genitourinary: no symptoms reported Musculoskeletal: no symptoms reported Skin: no symptoms reported Psychiatric/Neurological: No Symptoms Reported Endocrine: No Symptoms Reported Past Wplbvsj-Rbdjnv-Eqcvfl Hx Patient Social History Type Used: Cigarettes, Pipe Former Smoker, Quit: Apr 17, 2018 Recent Hopitalizations: Yes (05/18/19-05/25/19 FOR ANEMIA; 05/27-06/01/19 FOR R COLON RESECTION) Immunizations Up To Date Tetanus Booster (TDap): Unknown Date of Pneumonia Vaccine: Mar 19, 2019 Date of Influenza Vaccine: Dec 16, 2018 Seasonal Allergies Seasonal Allergies: No Past Medical History Surgeries: Yes (SEE BELOW) Abdominal, Bowel Surgery, Cardiac, Defibrillator Respiratory: No Cardiac: Yes (DEFIBRILLATOR; CARDIAC CATH-EXTENSIVE DZ-NO INTERVENTION; V-TACH) Atrial Fibrillation, Chronic Edema/Swelling, Coronary Artery Disease, High Cholesterol, Hypertension, Irregular Heartbeat Neurological: Yes (CVA WITH RIGHT SIDE WEAKNESS 03/2018) Stroke Reproductive Disorders: No Genitourinary: Yes (INCONTINENCE) Renal Failure Gastrointestinal: Yes (COLON CANCER DX 05/2019) Gastroesophageal Reflux, Polyps Musculoskeletal: Yes (Rt hemiparesis since CVA 03/2018) Arthritis Endocrine: Yes Diabetes, Non-Insulin dep HEENT: No Loss of Vision: Denies Hearing Impairment: Denies Cancer: Yes (R COLON RESECTION 05/2019) Skin, Melanoma, Colon Did You Recieve Any Treatments: Yes What Type of Treatment Did You: Surgical Intervention Psychosocial: No Integumentary: No Blood Disorders: Yes (ANEMIA) Adverse Reaction/Blood Tranf: No Family Medical History Patient reports no known family medical history. Diabetes PSH: -SKIN CANCER REMOVED WITH SKIN GRAFT -CARDIAC CATH 2015--EXTENSIVE DISEASE, NOT AMENABLE TO INTERVENTION. -DEFIBRILLATOR -COLONOSCOPY 05/2019 -RIGHT COLON RESECTION FOR CANCER 05/28/19 Physical Exam Vital Signs Vital Signs - First Documented 09/20/19 12:48 Temp 37.8 Pulse 75 Resp 18 B/P (MAP) 132/76 (94) Pulse Ox 94 O2 Delivery Room Air Capillary Refill : Height, Weight, BMI Height: 5'7.00" Weight: 190lbs. 2.0oz. 86.877208ve; 25.00 BMI Method:Estimated General Appearance: WD/WN, no apparent distress HEENT: PERRL/EOMI, normal ENT inspection, TMs normal, other (2 cm laceration over a hematoma to the right eyebrow. No active bleeding. This was anesthetized with 2 mL of 1% lidocaine with epinephrine. Scrubbed with saline/peroxide to remove the dried blood. Closed with a continuous suture size 5-0 Ethilon.) Neck: non-tender, full range of motion Respiratory: no respiratory distress, no accessory muscle use Psychiatric: alert, oriented x 3, other (talkative, does have some word searching as a result of his previous stroke, moves all extremities but reports that he is chronically weaker on the right side since the stroke.) Crainal Nerves: abnormal speech (chronic word searching, a bit of expressive aphasia), facial asymmetry (right-sided drooping) Skin: normal color, warm/dry Nadir Coma Score Best Eye Response: (4) Open Spontaneously Best Verbal Response: (5) Oriented Best Motor Response: (6) Obeys Commands [place] Total: 15 Progress/Results/Core Measures Results/Orders My Orders Orders - PINA PAULSON APRN Ct Head/Cervical Spine Wo (09/20/19 13:06) Dipht,Pertuss(Acell),Tet Adult (Boostrix (09/20/19 13:15) Medications Given in ED Current Medications Medications Dose Ordered Sig/Brain Route Start Time Stop Time Status Last Admin Dose Admin Diphtheria/ Tetanus/Acell Pertussis 0.5 ml ONCE ONCE IM 09/20/19 13:15 09/20/19 13:16 DC 09/20/19 13:21 0.5 ML Vital Signs/I&O 09/20/19 12:48 Temp 37.8 Pulse 75 Resp 18 B/P (MAP) 132/76 (94) Pulse Ox 94 O2 Delivery Room Air Diagnostic Imaging Diagonstic Imaging: Xray Comments NAME: HARI [facility] REC#: [id number] PT STATUS: REG ER : 1940 PHYSICIAN: PINA PAULSON APRN ADMIT DATE: 09/20/19/ER Draft Date of Exam:09/20/19 CT HEAD/CERVICAL SPINE WO PROCEDURE: CT head and CT cervical spine without contrast. TECHNIQUE: Multiple contiguous axial images were obtained through the brain and cervical spine without the use of intravenous contrast. Sagittal and coronal reformations through the cervical spine were then performed. Auto Exposure Controls were utilized during the CT exam to meet ALARA standards for radiation dose reduction. INDICATION: Fell and hit right side of head. Head and neck pain. FINDINGS: The ventricles are normal in size, shape and position. There is atrophy present. There is no acute parenchymal hemorrhage, edema or mass. There is a well circumscribed lucent area involving the posterior calvarium which may be related to arachnoid granulation versus a dermoid lesion but is stable compared to the 06/27/2018 study. No fracture is seen. There is normal height and alignment of the cervical vertebral bodies. There are degenerative changes present with no central canal stenosis seen. No fracture or other acute abnormality is seen. IMPRESSION: CT of the head shows atrophy with no acute abnormality and no change from 06/27/2018. CT of the cervical spine shows degenerative changes with no acute abnormality. Dictated on workstation # [id number] Dict: 09/20/19 1436 Trans: 09/20/19 1441 [facility] [id number] Interpreted by: HARI SAMAYOA MD Electronically signed by: Departure Impression Primary Impression: Fall at home Qualified Codes: W19.XXXA - Unspecified fall, initial encounter; Y92.009 - Unspecified place in unspecified non-institutional (private) residence as the place of occurrence of the external cause Additional Impression: Forehead laceration Qualified Codes: S01.81XA - Laceration without foreign body of other part of head, initial encounter Disposition: 01 HOME, SELF-CARE Condition: Stable Departure-Patient Inst. Decision time for Depature: 13:32 Referrals: TENNILLE LINDA MD (PCP/Family) Primary Care Physician Patient Instructions: Laceration Repair With Stitches (DC) Add. Discharge Instructions: Ice pack to the forehead this will help reduce swelling and subsequently the pain. Return to ER for any sign of infection such as redness or puslike drainage. Return to ER in about 6-7 days to have the stitches removed. All discharge instructions reviewed with patient and/or family. Voiced understanding. PINA PAULSON SANITARY ENGINEERING TEACHER Sep 20, 2019 13:13
[2019-09-20] MEDS ORDERED: TETANUS,DIPTH,PERTUSS P/F (BOOSTRIX) 0.5 ML VIAL IM ONE (13:15)
--- NOTE | 2019-09-20 14:41 | Diagnostic Imaging Report ---
PROCEDURE: CT head and CT cervical spine without contrast. TECHNIQUE: Multiple contiguous axial images were obtained through the brain and cervical spine without the use of intravenous contrast. Sagittal and coronal reformations through the cervical spine were then performed. Auto Exposure Controls were utilized during the CT exam to meet ALARA standards for radiation dose reduction. INDICATION: Fell and hit right side of head. Head and neck pain. FINDINGS: The ventricles are normal in size, shape and position. There is atrophy present. There is no acute parenchymal hemorrhage, edema or mass. There is a well circumscribed lucent area involving the posterior calvarium which may be related to arachnoid granulation versus a dermoid lesion but is stable compared to the 06/27/2018 study. No fracture is seen. There is normal height and alignment of the cervical vertebral bodies. There are degenerative changes present with no central canal stenosis seen. No fracture or other acute abnormality is seen. IMPRESSION: CT of the head shows atrophy with no acute abnormality and no change from 06/27/2018. CT of the cervical spine shows degenerative changes with no acute abnormality. Dictated by: Dictated on workstation # [id number]
--- NOTE | 2019-09-20 16:19 | NUR ---
PATIENT CON'T TO WAIT IN WAITNG ROOM CALLED DIVINA KAN BACK WILL COME GET HIS RAQUEL PERSON WAS WHO WAS
== END 2019-09-20 15:25 ==
LOC: EDUNIT# 12:48 → ER 12:49
DX: S01.111A Laceration without foreign body of right eyelid and periocular area, initial encounter (principal); I69.351 Hemiplegia and hemiparesis following cerebral infarction affecting right dominant side; I69.320 Aphasia following cerebral infarction; Z85.038 Personal history of other malignant neoplasm of large intestine; Z85.828 Personal history of other malignant neoplasm of skin; Z95.810 Presence of automatic (implantable) cardiac defibrillator; Z90.49 Acquired absence of other specified parts of digestive tract; Z79.82 Long term (current) use of aspirin; Z79.899 Other long term (current) drug therapy; Z87.891 Personal history of nicotine dependence; I48.91 Unspecified atrial fibrillation; I25.10 Atherosclerotic heart disease of native coronary artery without angina pectoris; E78.00 Pure hypercholesterolemia, unspecified; I10 Essential (primary) hypertension; K21.9 Gastro-esophageal reflux disease without esophagitis; Z86.010 Personal history of colon polyps; M19.90 Unspecified osteoarthritis, unspecified site; E11.9 Type 2 diabetes mellitus without complications; Z85.820 Personal history of malignant melanoma of skin; Z23 Encounter for immunization; W18.30XA Fall on same level, unspecified, initial encounter; Y92.098 Other place in other non-institutional residence as the place of occurrence of the external cause
CPT/HCPCS: 70450; 72125; 90715

== ENCOUNTER → 2021-04-19 | Outpatient (CLI) | payer MEDICARE, MEDICAID ==
[~2021-04-19] MED LIST changes: -AMIO200T4 PO; +AMIO200T65 PO; +ASPI-1238 PO; -ASPI-983 PO; +ENLP2.5T PO; -METH5TAB5 PO; +METH5TAB95 PO; -OMEP40CA27 PO; +OMEP40CA6 PO; +REGADENOSON 0.4 MG/5 ML SYR (LEXISCAN) IV ONE
[2021-04-19] MEDS: CATHETER FLUSH 10 ML SYR IV PRN ×2 (11:39→12:59)
--- NOTE | 2021-04-19 12:30 | Diagnostic Imaging Report ---
INDICATION: Chest pain. EXAMINATION: PA and lateral chest. FINDINGS: There is a dual-chamber pacemaker. The heart size and pulmonary vascularity are normal. The lungs are clear. There are no effusions or pneumothoraces. There is a 1 cm nodular opacity in the left lower chest that may be a nipple shadow but a pulmonary nodule could not be excluded. IMPRESSION: Questionable pulmonary nodule in the left lower lung. Recommend repeating the exam with nipple marker in place. Dictated by: Dictated on workstation # [id number]
[2021-04-19 12:59] VITALS: BP 124/63
--- NOTE | 2021-04-19 14:13 | Cardiology Stress Test Report ---
Stress Test Report Date of Procedure/Referring: Date of Procedure: Apr 19, 2021 PCP Taylor Rosenberg MD Admitting Physician Hayden Owen MD Indications: CP Baseline Heart Rate: 63 Baseline Blood Pressure: Blood Pressure Systolic: 124 Blood Pressure Diastolic: 63 Baseline Vitals Vital Signs Date Time Temp Pulse Resp B/P (MAP) Pulse Ox O2 Delivery O2 Flow Rate FiO2 04/19/21 12:59 62 124/63 (83) 96 Room Air Baseline EKG: Baseline EKG: RBBB Summary After explaining the procedure to the patient, he signed a consent and then brought to the stress nuclear laboratory. Patient received 0.4 mg Lexiscan for stress test, ECG, heart rate and blood pressure were monitored continuously. Resting and stress dose of radio tracer were injected, imaging was acquired and reviewed in short axis, horizontal long axis and vertical long axis views. TID: 1.08 SSS: 20 SDS: 1 EF: 34 1. Patient tolerated Lexiscan well 2. Baseline right bundle branch block persisted during test 3. Fixed defect involving the whole inferior wall inferoapical segment and inferolateral wall 4. Dilated left ventricle with diffuse left ventricular hypokinesia more pronounced at the inferior wall and inferolateral wall, ejection fraction 34% TAYLOR ROSENBERG MD Apr 19, 2021 14:13
== END ==
LOC: CARD 11:30
PROVIDERS: ATTEND Internal Medicine Cardiovascular Disease
DX: I08.0 Rheumatic disorders of both mitral and aortic valves (principal); I10 Essential (primary) hypertension; I25.10 Atherosclerotic heart disease of native coronary artery without angina pectoris; Z95.0 Presence of cardiac pacemaker
CPT/HCPCS: 71046; 78452; 93017; 93306; A9502

== ENCOUNTER 2021-05-08 05:37 | Outpatient (CLI) | payer MEDICARE, MEDICAID ==
[~2021-05-08] VITALS: Ht 172.7 cm; Wt 81.7 kg
[~2021-05-08 05:37] MED LIST changes: -REGADENOSON 0.4 MG/5 ML SYR (LEXISCAN) IV ONE
[2021-05-08] MEDS ORDERED: GLIM2TAB4 PO (10:43)
[2021-05-08] MEDS ORDERED: ROSU10TA28 PO (10:43)
[2021-05-08] MEDS ORDERED: NITR0.4T42 SL (10:43)
[2021-05-08] MEDS ORDERED: CARV12.53 PO (10:43)
== END 2021-05-08 13:24 ==
LOC: PREOP 05:37
PROVIDERS: ATTEND Surgery
DX: Z01.818 Encounter for other preprocedural examination (principal)

== ENCOUNTER 2021-05-16 09:52 | Day surgery (SDC) | payer MEDICARE, MEDICAID ==
[~2021-05-16] VITALS: Ht 172 cm; Wt 81.7 kg
[~2021-05-16 09:52] MED LIST changes: +CARV12.53 PO; +GLIM2TAB4 PO; +NITR0.4T42 SL; +ROSU10TA28 PO
[2021-05-16] MEDS ORDERED: LACTATED RINGERS 1,000 ML IV STA (09:54)
[2021-05-16] MEDS ORDERED: LACTATED RINGERS 1,000 ML IV ONE (09:59)
[2021-05-16 10:05] VITALS: BP 151/66
== END 2021-05-16 11:05 | disposition home or self-care (01) ==
LOC: ENDO 09:52
PROVIDERS: ATTEND Surgery
DX: Z53.9 Procedure and treatment not carried out, unspecified reason (principal)

== ENCOUNTER 2021-05-17 10:20 | Day surgery (SDC) | payer MEDICARE, MEDICAID ==
[~2021-05-17] VITALS: Ht 172 cm; Wt 81.7 kg
[2021-05-17] MEDS ORDERED: LACTATED RINGERS 1,000 ML IV STA (10:28)
[2021-05-17 10:30] VITALS: BP 149/83
[2021-05-17] MEDS ORDERED: LACTATED RINGERS 1,000 ML IV SCH (10:30)
[2021-05-17] MEDS ORDERED: PROPOFOL INJECTION 50 ML IV ONE (10:36)
--- NOTE | 2021-05-17 10:46 | Progress Note-Pre Operative ---
Pre-Operative Progress Note H&P Reviewed The H&P was reviewed, patient examined and no changes noted. Date Seen by Provider: May 17, 2021 Time Seen by Provider: 10:45 Date H&P Reviewed: May 17, 2021 Time H&P Reviewed: 10:46 Pre-Operative Diagnosis: hx colon cancer LYN JACQUES DO May 17, 2021 10:46
--- NOTE | 2021-05-17 11:07 | Progress Note-Post Operative ---
Post-Operative Progess Note Surgeon (s)/Wardrobe Image Consultant (s) Surgeon LYN JACQUES DO Wardrobe Image Consultant: na Pre-Operative Diagnosis hx colon cancer Post-Operative Diagnosis diverticulosis, rectal polyp Procedure & Operative Findings Date of Procedure 05/17/21 Procedure Performed/Findings colonoscopy c hot bx polypectomy Anesthesia Type per mda Estimated Blood Loss Estimated blood loss (mL): none Specimens/Packing Specimens Removed rectal polyp LYN JACQUES DO May 17, 2021 11:07
--- NOTE | 2021-05-17 11:08 | Discharge Inst-Simple/Standard ---
Discharge Inst-Standard Patient Instructions/Follow Up Plan of Care/Instructions/FU: 2 weeks Griselda Activity as Tolerated: Yes Discharge Diet: Regular Diet (high fiber) LYN JACQUES DO May 17, 2021 11:08
[2021-05-17 11:10] VITALS: BP 107/55
[2021-05-17 11:37] VITALS: BP 126/62
--- NOTE | 2021-05-17 15:01 | OPERATIVE REPORT ---
DATE OF SERVICE: 05/17/2021 PREOPERATIVE DIAGNOSIS: History of colon cancer. POSTOPERATIVE DIAGNOSES: Diverticulosis, rectal polyp. PROCEDURE: Colonoscopy with hot biopsy polypectomy. SURGEON: Lyn Villalobos DO ANESTHESIA: Per MDA. ESTIMATED BLOOD LOSS: None. COMPLICATIONS: None. INDICATIONS: The patient is a 81-year-old male with history of right colon resection in 2019. He needs colonoscopy for further evaluation. Consent was signed in the chart. DESCRIPTION OF PROCEDURE: The patient was taken to the endoscopy suite, placed in left lateral recumbent position. Timeout was performed. Digital rectal exam was performed. No palpable polyps, masses or ulcerations. Scope was inserted in the rectum and advanced all the way to the ileocolonic anastomosis of the right colon. Prep was adequate. Scope was slowly retracted back. No polyps, masses or ulcerations of the ileocolonic anastomosis, transverse, descending and sigmoid colon. A minimal amount of diverticulosis present in sigmoid colon. In the rectum, a small polyp was present, which hot biopsy polypectomy was performed. Scope was retroflexed noting no other pathology. Scope was returned to its normal position, slowly withdrawn until completely removed. The patient tolerated the procedure well without any complications, taken to recovery room in stable condition. RECOMMENDATIONS: The patient will need repeat colonoscopy in years 1, 3 and 5 post colon resection. The patient will follow up in the office in 2 weeks to discuss pathology results. Job ID: [id number] DocumentID: [id number] Dictated Date: 05/17/2021 11:11:16 Business Strategist Date: 05/17/2021 15:00:43 Dictated By: LYN VILLALOBOS DO
[2021-05-18] MEDS ORDERED: CEFD300C3 PO (06:28)
== END 2021-05-17 11:52 | disposition home or self-care (01) ==
LOC: ENDO 10:20
PROVIDERS: ATTEND Surgery
DX: K63.5 Polyp of colon (principal); K57.30 Diverticulosis of large intestine without perforation or abscess without bleeding; Z85.038 Personal history of other malignant neoplasm of large intestine; Z90.49 Acquired absence of other specified parts of digestive tract; Z98.0 Intestinal bypass and anastomosis status; Z87.891 Personal history of nicotine dependence
CPT/HCPCS: 88305

== ENCOUNTER 2021-05-18 03:38 | Emergency (ER) | payer MEDICARE, MEDICAID ==
[~2021-05-18] VITALS: Ht 168 cm; Wt 81.7 kg
[2021-05-18 03:56] LABS: BASOPHILS % (AUTO) 0 % (0-10); EOSINOPHILS % (AUTO) 0 % (0-10); HEMATOCRIT 41 % (40-54); HEMOGLOBIN 13.7 g/dL (13.3-17.7); LYMPHOCYTES # (AUTO) 0.7 10^3/uL (1.0-4.0); LYMPHOCYTES % (AUTO) 5 % (12-44); MEAN CORPUSCULAR HEMOGLOBIN 30 pg (25-34); MEAN CORPUSCULAR HGB CONC 33 g/dL (32-36); MEAN CORPUSCULAR VOLUME 89 fL (80-99); MONOCYTES # (AUTO) 0.3 10^3/uL (0.0-1.0); MONOCYTES % (AUTO) 3 % (0-12); NEUTROPHILS % (AUTO) 91 % (42-75); PLATELET COUNT 249 10^3/uL (130-400); WHITE BLOOD COUNT 13.1 10^3/uL (4.3-11.0)
[2021-05-18 04:07] LABS: POTASSIUM 4.3 MMOL/L (3.6-5.0); PROTHROMBIN TIME PATIENT 13.2 SEC (12.2-14.7)
[2021-05-18 04:08] LABS: CALCIUM 9.4 MG/DL (8.5-10.1)
[2021-05-18 04:10] LABS: TOTAL PROTEIN 6.9 GM/DL (6.4-8.2)
[2021-05-18 04:11] LABS: BILIRUBIN,TOTAL 0.4 MG/DL (0.1-1.0)
[2021-05-18 04:13] LABS: CREATININE SERUM 1.55 MG/DL (0.60-1.30)
[2021-05-18 04:16] LABS: BAND NEUTROPHILS 3 %; BASOPHILS % (MANUAL) 0 %; EOSINOPHILS % (MANUAL) 0 %; LYMPHOCYTES % (MANUAL) 5 %; MAGNESIUM 2.5 MG/DL (1.6-2.4); MONOCYTES % (MANUAL) 2 %; NEUTROPHILS % (MANUAL) 88 %
[2021-05-18 04:17] LABS: RBC MORPH NORMAL; REACTIVE LYMPHOCYTES 2 %
--- NOTE | 2021-05-18 04:23 | ED Chest Pain ---
General Chief Complaint: Chest Pain Stated Complaint: CP Nursing Triage Note: brought in by [facility] for right sided chest pain since 1800 05/17/21, vomitted x1. (JESSE SALGADO MED STUDENT) Source: patient, EMS, old records Exam Limitations: no limitations (ERIC MCKEON MD) History of Present Illness Initial Comments This is a 81 YO male with history of HTN, HLD, DM, and CAD with stent placement presents to the ED with right-sided chest pain starting 5 hours ago. Pt states the pain began while he was watching TV and vomited soon afterwards. Did not take any medication for the pain. Says he has never had pain like this before, but feels he has gradually been improving. EMS did not give any interventions since pt's residence was less than half a mile from the hospital. VSS en route. Pt normally on blood thinners, but stopped taking them prior to having a colonoscopy by Dr. Jacques yesterday. Fire Inspector is Dr. Rosenberg, who he last saw 2 months ago. Last heart cath was in 2018 and last stress test was one month ago. Timing/Duration: other (5 hours) Severity/Quality: mild Radiation: no radiation Activities at Onset: none Prior CP/Workup: cardiac cath Associated Symptoms: No abdominal pain (JESSE SALGADO STUDENT) Date Seen by Provider: May 18, 2021 Time Seen by Provider: 03:46 (ERIC MCKEON MD) Allergies and Home Medications Allergies Coded Allergies: No Known Drug Allergies (Verified , 05/21/19) Patient Home Medication List Home Medication List Reviewed: Yes (ERIC MCKEON MD) Amiodarone HCl (Amiodarone HCl) 200 Mg Tablet, 200 MG PO DAILY, (Reported) Entered as Reported by: SKYLA JUAREZ on 05/19/19 1316 Apixaban (Eliquis) 5 Mg Tablet, 5 MG PO BID, (Reported) Entered as Reported by: GARCIA HEART on 05/26/19 1142 Aspirin (Aspirin EC) 81 Mg Tablet.dr, 81 MG PO DAILY, (Reported) Entered as Reported by: DINA HENNING on 04/13/15 1028 Carvedilol (Carvedilol) 12.5 Mg Tablet, 12.5 MG PO BID, (Reported) Entered as Reported by: RODNEY CONWAY on 05/08/21 1043 Cefdinir (Cefdinir) 300 Mg Capsule, 300 MG PO BID Prescribed by: ERIC LEE on 05/18/21 0628 Cholecalciferol (Vitamin D3) (Vitamin D3) 50 Mcg Capsule, 50 MCG PO DAILY, (Reported) Entered as Reported by: SKYLA JUAREZ on 05/19/19 1316 Digoxin (Digoxin) 125 Mcg Tablet, 125 MCG PO DAILY, (Reported) Entered as Reported by: VINEET LABOY on 03/27/18 1342 Docusate Sodium (Colace) 100 Mg Capsule, 100 MG PO BID Prescribed by: LYN JACQUES on 06/01/19 1114 Enalapril Maleate (Enalapril Maleate) 2.5 Mg Tablet, 2.5 MG PO DAILY, (Reported) Entered as Reported by: VINEET LABOY on 03/27/18 1342 Ferrous Sulfate (Ferrous Sulfate) 325 Mg Tablet, 325 MG PO Q48H, (Reported) Entered as Reported by: GARCIA HEART on 05/26/19 1142 Furosemide (Furosemide) 40 Mg Tablet, 40 MG PO DAILY, (Reported) Entered as Reported by: VINEET LABOY on 03/27/18 1342 Glimepiride (Glimepiride) 2 Mg Tablet, 2 MG PO HS, (Reported) Entered as Reported by: RODNEY CONWAY on 05/08/21 1043 Methimazole (Methimazole) 5 Mg Tablet, 5 MG PO DAILY, (Reported) Entered as Reported by: DINA HENNING on 04/13/15 1028 Nitroglycerin (Nitroglycerin) 0.4 Mg Tab.subl, 0.4 MG SL PRN, (Reported) Entered as Reported by: RODNEY CONWAY on 05/08/21 1043 Omeprazole (Omeprazole) 20 Mg Capsule.dr, 20 MG PO DAILY, (Reported) Entered as Reported by: VINEET LABOY on 03/27/18 1342 Propylene Glycol (Systane Balance) 10 Ml Drops, 1 DROP OU Q12H PRN for DRY EYES, (Reported) Entered as Reported by: SKYLA JUAREZ on 05/19/19 1316 Rosuvastatin Calcium (Rosuvastatin Calcium) 10 Mg Tablet, 10 MG PO DAILY, (Reported) Entered as Reported by: RODNEY CONWAY on 05/08/21 1043 Spironolactone (Spironolactone) 25 Mg Tablet, 25 MG PO DAILY, (Reported) Entered as Reported by: SKYLA JUAREZ on 05/19/19 1316 Review of Systems Review of Systems Constitutional: No chills, No fever EENTM: No Blurred Vision, No Double Vision Respiratory: Denies Cough, Denies Stridor Cardiovascular: Chest Pain; Denies Syncope Gastrointestinal: Denies Abdominal Pain Genitourinary: No Symptoms Reported Musculoskeletal: No back pain, No joint pain Skin: No pruritus, No rash Psychiatric/Neurological: No Symptoms Reported; Denies Headache, Denies Numbness Endocrine: No Symptoms Reported Hematologic/Lymphatic: No Symptoms Reported (JESSE SALGADO STUDENT) All Other Systems Reviewed Negative Unless Noted: Yes (Negative excepted noted.) (JESSE SALGADO STUDENT) Past Cjuhqie-Bcmlnc-Jjejto Hx Patient Social History Tobacco Use?: No Tobacco type used: Cigarettes Smoking Status: Former Smoker Substance use?: No Alcohol Use?: No Pt feels they are or have been: No (JESSE SALGADO STUDENT) Immunizations Up To Date Tetanus Booster (TDap): Unknown First/Initial COVID19 Vaccinat: APRIL 2020 Second COVID19 Vaccination Yamil: MAY 2020 Third COVID19 Vaccination Date: NO (JESSE SALGADO STUDENT) Seasonal Allergies Seasonal Allergies: No (JESSE SALGADO) Past Medical History Surgeries: Yes (SEE BELOW) Abdominal, Bowel Surgery, Cardiac, Defibrillator Respiratory: No Cardiac: Yes (DEFIBRILLATOR; CARDIAC CATH-EXTENSIVE DZ-NO INTERVENTION; V-TACH) Atrial Fibrillation, Chronic Edema/Swelling, Coronary Artery Disease, High Cholesterol, Hypertension, Irregular Heartbeat Neurological: Yes (CVA WITH RIGHT SIDE WEAKNESS 03/2018) Stroke Reproductive Disorders: No Genitourinary: Yes (INCONTINENCE) Renal Failure Gastrointestinal: Yes (COLON CANCER DX 05/2019) Gastroesophageal Reflux, Polyps Musculoskeletal: Yes (Rt hemiparesis since CVA 03/2018) Arthritis Endocrine: Yes Diabetes, Non-Insulin dep HEENT: No Loss of Vision: Denies Hearing Impairment: Denies Cancer: Yes (R COLON RESECTION 05/2019) Skin, Melanoma, Colon Did You Recieve Any Treatments: Yes What Type of Treatment Did You: Surgical Intervention Psychosocial: No Integumentary: No Blood Disorders: Yes (ANEMIA) Adverse Reaction/Blood Tranf: No (JESSE SALGADO STUDENT) Family Medical History Patient reports no known family medical history. Diabetes PSH: -SKIN CANCER REMOVED WITH SKIN GRAFT -CARDIAC CATH 2015--EXTENSIVE DISEASE, NOT AMENABLE TO INTERVENTION. -DEFIBRILLATOR -COLONOSCOPY 05/2019 -RIGHT COLON RESECTION FOR CANCER 05/28/19 (JESSE SALGADO STUDENT) Physical Exam Vital Signs Vital Signs - First Documented 05/18/21 03:40 Temp 36.2 Pulse 84 Resp 18 B/P (MAP) 125/60 (81) Pulse Ox 96 O2 Delivery Room Air (ERIC MCKEON MD) Vital Signs Capillary Refill : Less Than 3 Seconds (JESSE SALGADO STUDENT) Height, Weight, BMI Height: 5'7.00" Weight: 190lbs. 2.0oz. [id number]; 28.00 BMI Method:Estimated General Appearance: No Apparent Distress, WD/WN HEENT: PERRL/EOMI; No Scleral Icterus (L), No Scleral Icterus (R) Neck: Normal Inspection, Supple Respiratory: Lungs Clear, Normal Breath Sounds, No Accessory Muscle Use, No Respiratory Distress, Other (right anterior chest wall point tenderness) Cardiovascular: Regular Rate, Rhythm, No Murmur, Normal Peripheral Pulses Gastrointestinal: Non Tender, Soft; No Distended Extremity: Normal Inspection, Normal Range of Motion Neurologic/Psychiatric: Alert, Oriented x3, No Motor/Sensory Deficits, Normal Mood/Affect Skin: Normal Color, Warm/Dry (JESSE SALGADO STUDENT) Progress/Results/Core Measures Results/Orders Lab Results Laboratory Tests Test 05/18/21 03:47 05/18/21 05:43 Range/Units White Blood Count 13.1 H 4.3-11.0 10^3/uL Red Blood Count 4.64 4.30-5.52 10^6/uL Hemoglobin 13.7 13.3-17.7 g/dL Hematocrit 41 40-54 % Mean Corpuscular Volume 89 80-99 fL Mean Corpuscular Hemoglobin 30 25-34 pg Mean Corpuscular Hemoglobin Concent 33 32-36 g/dL Red Cell Distribution Width 13.9 10.0-14.5 % Platelet Count 249 130-400 10^3/uL Mean Platelet Volume 11.0 9.0-12.2 fL Immature Granulocyte % (Auto) 1 % Neutrophils (%) (Auto) 91 H 42-75 % Lymphocytes (%) (Auto) 5 L 12-44 % Monocytes (%) (Auto) 3 0-12 % Eosinophils (%) (Auto) 0 0-10 % Basophils (%) (Auto) 0 0-10 % Neutrophils # (Auto) 12.0 H 1.8-7.8 10^3/uL Lymphocytes # (Auto) 0.7 L 1.0-4.0 10^3/uL Monocytes # (Auto) 0.3 0.0-1.0 10^3/uL Eosinophils # (Auto) 0.0 0.0-0.3 10^3/uL Basophils # (Auto) 0.0 0.0-0.1 10^3/uL Immature Granulocyte # (Auto) 0.1 0.0-0.1 10^3/uL Neutrophils % (Manual) 88 % Lymphocytes % (Manual) 5 % Monocytes % (Manual) 2 % Eosinophils % (Manual) 0 % Basophils % (Manual) 0 % Band Neutrophils 3 % Reactive Lymphocytes 2 % Blood Morphology Comment NORMAL Prothrombin Time 13.2 12.2-14.7 SEC INR Comment 1.0 0.8-1.4 Activated Partial Thromboplast Time 34 24-35 SEC Sodium Level 135 135-145 MMOL/L Potassium Level 4.3 3.6-5.0 MMOL/L Chloride Level 102 98-107 MMOL/L Carbon Dioxide Level 19 L 21-32 MMOL/L Anion Gap 14 5-14 MMOL/L Blood Urea Nitrogen 18 7-18 MG/DL Creatinine 1.55 H 0.60-1.30 MG/DL Estimat Glomerular Filtration Rate 45 BUN/Creatinine Ratio 12 Glucose Level 330 H 70-105 MG/DL Calcium Level 9.4 8.5-10.1 MG/DL Corrected Calcium 9.4 8.5-10.1 MG/DL Magnesium Level 2.5 H 1.6-2.4 MG/DL Total Bilirubin 0.4 0.1-1.0 MG/DL Aspartate Amino Transf (AST/SGOT) 21 5-34 U/L Alanine Aminotransferase (ALT/SGPT) 36 0-55 U/L Alkaline Phosphatase 37 L 40-136 U/L Myoglobin 93.5 H 10.0-92.0 NG/ML Troponin I < 0.028 < 0.028 <0.028 NG/ML Total Protein 6.9 6.4-8.2 GM/DL Albumin 4.0 3.2-4.5 GM/DL (ERIC MCKEON MD) My Orders Orders - ERIC MCKEON MD Cbc With Automated Diff (05/18/21 03:46) Magnesium (05/18/21 03:46) Chest 1 View, Ap/Pa Only (05/18/21 03:46) Ekg Tracing (05/18/21 03:46) Comprehensive Metabolic Panel (05/18/21 03:46) Myoglobin Serum (05/18/21 03:46) Protime With Inr (05/18/21 03:46) Partial Thromboplastin Time (05/18/21 03:46) O2 (05/18/21 03:46) Monitor-Rhythm Ecg Trace Only (05/18/21 03:46) Ed Iv/Invasive Line Start (05/18/21 03:46) Troponin I [place] (05/18/21 03:46) Manual Differential (05/18/21 03:47) Troponin I [place] (05/18/21 05:50) Acetaminophen Tablet (Tylenol Tablet) (05/18/21 06:30) Cefdinir Capsule (Omnicef Capsule) (05/18/21 06:30) (ERIC MCKEON MD) Medications Given in ED Current Medications Medications Dose Ordered Sig/Brain Route Start Time Stop Time Status Last Admin Dose Admin Acetaminophen 1,000 mg ONCE ONCE PO 05/18/21 06:30 05/18/21 06:31 DC 05/18/21 06:34 1,000 MG Cefdinir 300 mg ONCE ONCE PO 05/18/21 06:30 05/18/21 06:31 DC 05/18/21 06:34 300 MG (ERIC MCKEON MD) Vital Signs/I&O 05/18/21 05/18/21 03:40 06:34 Temp 36.2 36.3 Pulse 84 60 Resp 18 18 B/P (MAP) 125/60 (81) 105/50 Pulse Ox 96 98 O2 Delivery Room Air Room Air (ERIC MCKEON MD) Blood Pressure Mean: 81 Initial ECG Impression Date: May 18, 2021 Initial ECG Impression Time: 03:41 Initial ECG Rate: 64 Comment Atrial paced complexes with right bundle branch block. No ST elevation or depression. No axis deviation. (ERIC MCKEON MD) Departure Impression Primary Impression: Atypical chest pain Disposition: 01 HOME, SELF-CARE Condition: Stable Departure-Patient Inst. Decision time for Depature: 06:26 (ERIC MCKEON MD) Referrals: TENNILLE LINDA MD (PCP/Family) Primary Care Physician Patient Instructions: Aspiration Pneumonia, Chest Pain Add. Discharge Instructions: Continue your medications as previously prescribed. Complete antibiotics as prescribed for possible aspiration from your colonoscopy procedure. You may take Tylenol (acetaminophen) up to 1000 mg every 6 hours as needed. Return to the ER if you have worsening symptoms. Call with questions or concerns. All discharge instructions reviewed with patient and/or family. Voiced understanding. Scripts Cefdinir (Cefdinir) 300 Mg Capsule 300 MG PO BID, #14 CAP Prov: ERIC MCKEON MD 05/18/21 Copy Copies To 1: LYN JACQUES DO Copies To 2: TENNILLE LINDA MD, CHRISTINE MED STUDENT May 18, 2021 04:23 ERIC MCKEON MD May 18, 2021 06:25
--- NOTE | 2021-05-18 06:11 | Diagnostic Imaging Report ---
INDICATION: Chest pain. TECHNIQUE: Single view chest 3:58 AM. CORRELATION STUDY: 04/19/2021 FINDINGS: Left-sided pacemaker stable. Heart size unchanged. Vasculature is very slightly increased from prior but without overt failure. The lungs are clear with no consolidating infiltrate. There is no significant effusion or pneumothorax. A previously question nodule left lung base cannot be well appreciated on this study which may be attributed to differences in technique. IMPRESSION: 1. Heart size stable. Vasculature may be slightly more prominent from prior but without evidence of overt failure. 2. The previously questioned nodule left lung base cannot be well appreciated on current study, likely largely attributed difference technique. Dictated by: Dictated on workstation # [id number]
[2021-05-18] MEDS ORDERED: CEFD300C3 PO (06:28)
[2021-05-18] MEDS ORDERED: CEFDINIR 300 MG (OMNICEF) CAP PO ONE (06:30)
[2021-05-18] MEDS ORDERED: ACETAMINOPHEN 500 MG TAB (TYLENOL) PO ONE (06:30)
[2021-05-18 06:34] VITALS: BP 105/50
== END 2021-05-18 06:34 | disposition home or self-care (01) ==
LOC: EDUNIT# 03:38 → ER 03:40
DX: R07.89 Other chest pain (principal); Z87.891 Personal history of nicotine dependence
CPT/HCPCS: 36415; 71045; 80053; 83735; 83874; 84484; 85007; 85027; 85610; 85730; 93005; 93041

== ENCOUNTER 2022-04-06 10:16 | Emergency (ER) | payer MEDICARE, MEDICAID ==
[~2022-04-06] VITALS: Ht 167 cm; Wt 77.1 kg
[2022-04-06] MEDS ORDERED: ASPIRIN 81 MG CHEW (CHILDREN'S ASA) PO ONE (10:45)
--- NOTE | 2022-04-06 10:47 | ED Chest Pain ---
General Stated Complaint: DEFIBRILLATOR ASSESSMENT Source: patient Exam Limitations: no limitations History of Present Illness Date Seen by Provider: Apr 06, 2022 Time Seen by Provider: 10:41 Initial Comments To ER by private vehicle from [facility] where he resides with reports of defibrillator discharge yesterday 04/05/2021 at 3:45 PM. He was walking, felt dizzy for a few minutes then went to sit in his chair and then felt a strong jolt. He never lost consciousness and felt fine immediately after. He states this has happened once before. He has a history of heart failure following with Dr. Rosenberg. He denies any chest pain or shortness of breath before or since the event. He comes in today just to get checked out. Known CAD with stents, defibrillator placed by Dr Raphael at for v tach/sudden cardiac . Medication list Amaryl 2 mg at at bedtime Amiodarone 200 mg daily Aspirin 81 mg daily Colace 100 mg twice daily Coreg 12.5 mg twice daily Crestor 10 mg p.o. daily Digoxin 125 mcg daily Eliquis 5 mg p.o. twice daily Enalapril 2.5 mg daily Ferrous sulfate 325 mg daily Furosemide 40 mg daily Methimazole 5 mg at at bedtime Omeprazole 20 mg daily Spironolactone 25 mg daily Amaryl 3 mg daily Timing/Duration: 24 hours Severity/Quality: mild Radiation: no radiation Activities at Onset: none Prior CP/Workup: no prior chest pain Allergies and Home Medications Allergies Coded Allergies: No Known Drug Allergies (Verified , 05/21/19) Patient Home Medication List Home Medication List Reviewed: Yes Amiodarone HCl (Amiodarone HCl) 200 Mg Tablet, 200 MG PO DAILY, (Reported) Entered as Reported by: SKYLA JUAREZ on 05/19/19 1316 Apixaban (Eliquis) 5 Mg Tablet, 5 MG PO BID, (Reported) Entered as Reported by: GARCIA HEART on 05/26/19 1142 Aspirin (Aspirin EC) 81 Mg Tablet.dr, 81 MG PO DAILY, (Reported) Entered as Reported by: DINA HENNING on 04/13/15 1028 Carvedilol (Carvedilol) 12.5 Mg Tablet, 12.5 MG PO BID, (Reported) Entered as Reported by: RODNEY CONWAY on 05/08/21 1043 Cefdinir (Cefdinir) 300 Mg Capsule, 300 MG PO BID Prescribed by: ERIC LEE on 05/18/21 0628 Cholecalciferol (Vitamin D3) (Vitamin D3) 50 Mcg Capsule, 50 MCG PO DAILY, (Reported) Entered as Reported by: SKYLA JUAREZ on 05/19/19 1316 Digoxin (Digoxin) 125 Mcg Tablet, 125 MCG PO DAILY, (Reported) Entered as Reported by: VINEET LABOY on 03/27/18 1342 Docusate Sodium (Colace) 100 Mg Capsule, 100 MG PO BID Prescribed by: LYN JACQUES on 06/01/19 1114 Enalapril Maleate (Enalapril Maleate) 2.5 Mg Tablet, 2.5 MG PO DAILY, (Reported) Entered as Reported by: VINEET LABOY on 03/27/18 1342 Ferrous Sulfate (Ferrous Sulfate) 325 Mg Tablet, 325 MG PO Q48H, (Reported) Entered as Reported by: GARCIA HEART on 05/26/19 1142 Furosemide (Furosemide) 40 Mg Tablet, 40 MG PO DAILY, (Reported) Entered as Reported by: VINEET LABOY on 03/27/18 1342 Glimepiride (Glimepiride) 2 Mg Tablet, 2 MG PO HS, (Reported) Entered as Reported by: RODNEY CONWAY on 05/08/21 1043 Methimazole (Methimazole) 5 Mg Tablet, 5 MG PO DAILY, (Reported) Entered as Reported by: DINA HENNING on 04/13/15 1028 Nitroglycerin (Nitroglycerin) 0.4 Mg Tab.subl, 0.4 MG SL PRN, (Reported) Entered as Reported by: RODNEY CONWAY on 05/08/21 1043 Omeprazole (Omeprazole) 20 Mg Capsule.dr, 20 MG PO DAILY, (Reported) Entered as Reported by: VINEET LABOY on 03/27/18 1342 Propylene Glycol (Systane Balance) 10 Ml Drops, 1 DROP OU Q12H PRN for DRY EYES, (Reported) Entered as Reported by: SKYLA JUAREZ on 05/19/19 1316 Rosuvastatin Calcium (Rosuvastatin Calcium) 10 Mg Tablet, 10 MG PO DAILY, (Reported) Entered as Reported by: RODNEY Payne [facility] on 05/08/21 1043 Spironolactone (Spironolactone) 25 Mg Tablet, 25 MG PO DAILY, (Reported) Entered as Reported by: SKYLA JUAREZ on 05/19/19 1316 Review of Systems Review of Systems Constitutional: see HPI Past Wvmpsbg-Pwrlgd-Ejgcaf Hx Patient Social History Tobacco Use?: Yes Tobacco type used: Cigarettes Smoking Status: Current Everyday Smoker Immunizations Up To Date Tetanus Booster (TDap): Unknown First/Initial COVID19 Vaccinat: APRIL 2020 Second COVID19 Vaccination Yamil: MAY 2020 Third COVID19 Vaccination Date: NO Seasonal Allergies Seasonal Allergies: No Past Medical History Surgeries: Yes (SEE BELOW) Abdominal, Bowel Surgery, Cardiac, Defibrillator Respiratory: No Cardiac: Yes (DEFIBRILLATOR; CARDIAC CATH-EXTENSIVE DZ-NO INTERVENTION; V-TACH) Atrial Fibrillation, Chronic Edema/Swelling, Coronary Artery Disease, High Cholesterol, Hypertension, Irregular Heartbeat Neurological: Yes (CVA WITH RIGHT SIDE WEAKNESS 03/2018) Stroke Reproductive Disorders: No Genitourinary: Yes (INCONTINENCE) Renal Failure Gastrointestinal: Yes (COLON CANCER DX 05/2019) Gastroesophageal Reflux, Polyps Musculoskeletal: Yes (Rt hemiparesis since CVA 03/2018) Arthritis Endocrine: Yes Diabetes, Non-Insulin dep HEENT: No Loss of Vision: Denies Hearing Impairment: Denies Cancer: Yes (R COLON RESECTION 05/2019) Skin, Melanoma, Colon Did You Recieve Any Treatments: Yes What Type of Treatment Did You: Surgical Intervention Psychosocial: No Integumentary: No Blood Disorders: Yes (ANEMIA) Adverse Reaction/Blood Tranf: No Family Medical History Patient reports no known family medical history. Diabetes PSH: -SKIN CANCER REMOVED WITH SKIN GRAFT -CARDIAC CATH 2015--EXTENSIVE DISEASE, NOT AMENABLE TO INTERVENTION. -DEFIBRILLATOR -COLONOSCOPY 05/2019 -RIGHT COLON RESECTION FOR CANCER 05/28/19 Physical Exam Vital Signs Vital Signs - First Documented 04/06/22 10:32 Temp 36.2 Pulse 84 Resp 20 B/P (MAP) 136/88 (104) Pulse Ox 98 O2 Delivery Room Air Capillary Refill : Height, Weight, BMI Height: 5'7.00" Weight: 190lbs. 2.0oz. 86.712511si; 28.00 BMI Method:Estimated General Appearance: No Apparent Distress, WD/WN, Other (Alert and oriented very pleasant talks in full sentences no shortness of breath apparent. Does have pre-existing left facial droop and dysarthria from prior CVA) HEENT: PERRL/EOMI Neck: Full Range of Motion, Normal Inspection Respiratory: No Accessory Muscle Use Cardiovascular: Regular Rate, Rhythm, Normal Peripheral Pulses Gastrointestinal: Normal Bowel Sounds, Non Tender, Soft Extremity: Normal Capillary Refill, Normal Inspection Neurologic/Psychiatric: Alert, Oriented x3 Skin: Normal Color, Warm/Dry Progress/Results/Core Measures Results/Orders Lab Results Laboratory Tests Test 04/06/22 10:39 04/06/22 12:31 Range/Units White Blood Count 13.5 H 4.3-11.0 10^3/uL Red Blood Count 5.23 4.30-5.52 10^6/uL Hemoglobin 15.4 13.3-17.7 g/dL Hematocrit 46 40-54 % Mean Corpuscular Volume 89 80-99 fL Mean Corpuscular Hemoglobin 29 25-34 pg Mean Corpuscular Hemoglobin Concent 33 32-36 g/dL Red Cell Distribution Width 13.8 10.0-14.5 % Platelet Count 267 130-400 10^3/uL Mean Platelet Volume 11.1 9.0-12.2 fL Immature Granulocyte % (Auto) 1 % Neutrophils (%) (Auto) 72 42-75 % Lymphocytes (%) (Auto) 15 12-44 % Monocytes (%) (Auto) 9 0-12 % Eosinophils (%) (Auto) 4 0-10 % Basophils (%) (Auto) 1 0-10 % Neutrophils # (Auto) 9.7 H 1.8-7.8 10^3/uL Lymphocytes # (Auto) 2.0 1.0-4.0 10^3/uL Monocytes # (Auto) 1.2 H 0.0-1.0 10^3/uL Eosinophils # (Auto) 0.5 H 0.0-0.3 10^3/uL Basophils # (Auto) 0.1 0.0-0.1 10^3/uL Immature Granulocyte # (Auto) 0.1 0.0-0.1 10^3/uL Prothrombin Time 15.2 H 12.2-14.7 SEC INR Comment 1.2 0.8-1.4 Activated Partial Thromboplast Time 36 H 24-35 SEC Sodium Level 134 L 135-145 MMOL/L Potassium Level 4.8 3.6-5.0 MMOL/L Chloride Level 98 98-107 MMOL/L Carbon Dioxide Level 23 21-32 MMOL/L Anion Gap 13 5-14 MMOL/L Blood Urea Nitrogen 34 H 7-18 MG/DL Creatinine 1.76 H 0.60-1.30 MG/DL Estimat Glomerular Filtration Rate 39 BUN/Creatinine Ratio 19 Glucose Level 213 H 70-105 MG/DL Calcium Level 10.0 8.5-10.1 MG/DL Corrected Calcium 9.8 8.5-10.1 MG/DL Magnesium Level 2.4 1.6-2.4 MG/DL Total Bilirubin 0.4 0.1-1.0 MG/DL Aspartate Amino Transf (AST/SGOT) 20 5-34 U/L Alanine Aminotransferase (ALT/SGPT) 36 0-55 U/L Alkaline Phosphatase 45 40-136 U/L Myoglobin 62.0 10.0-92.0 NG/ML Troponin I 0.051 H 0.059 H <0.028 NG/ML Total Protein 7.7 6.4-8.2 GM/DL Albumin 4.3 3.2-4.5 GM/DL Digoxin Level 1.58 0.80-2.00 NG/ML My Orders Orders - PINA PAULSON APRN Cbc With Automated Diff (04/06/22 10:31) Magnesium (04/06/22 10:31) Chest 1 View, Ap/Pa Only (04/06/22 10:31) Ekg Tracing (04/06/22 10:31) Comprehensive Metabolic Panel (04/06/22 10:31) Myoglobin Serum (04/06/22 10:31) Protime With Inr (04/06/22 10:31) Partial Thromboplastin Time (04/06/22 10:31) O2 (04/06/22 10:31) Monitor-Rhythm Ecg Trace Only (04/06/22 10:31) Lipid Panel (04/07/22 06:00) Ed Iv/Invasive Line Start (04/06/22 10:31) Troponin I Evans (04/06/22 10:31) Aspirin Chewable Tablet (Baby Aspirin Ch (04/06/22 10:45) Digoxin (04/06/22 10:41) Troponin I Nettie (04/06/22 12:28) Medications Given in ED Current Medications Medications Dose Ordered Sig/Brain Route Start Time Stop Time Status Last Admin Dose Admin Aspirin 324 mg ONCE ONCE PO 04/06/22 10:45 04/06/22 10:46 DC 04/06/22 10:55 324 MG Vital Signs/I&O 04/06/22 04/06/22 10:32 11:08 Temp 36.2 Pulse 84 60 Resp 20 B/P (MAP) 136/88 (104) 120/56 (77) Pulse Ox 98 95 O2 Delivery Room Air Room Air Diagnostic Imaging Diagonstic Imaging: Xray Plain Films/CT/US/NM/MRI: chest Comments NAME: [facility] REC#: [id number] PT STATUS: REG ER : 1940 PHYSICIAN: PINA PAULSON APRN ADMIT DATE: 04/06/22/ER Draft Date of Exam:04/06/22 CHEST 1 VIEW, AP/PA ONLY CLINICAL INDICATION: Patient with chest pain and reported being dizzy yesterday. EXAM: Portable chest x-ray, upright view. COMPARISON: Chest x-ray dated 05/17/2021. FINDINGS: Lungs/pleura: There are curvilinear opacities involving both lung bases and ground-glass opacification which may be related to atelectasis. There is no definite lung infiltrate seen. There is no pneumothorax. There is no pleural effusion. Mediastinum: Unremarkable. Pulmonary vasculature: Unremarkable. Heart: Cardiac silhouette is within normal limits for portable projection. Cardiac pacemaker/AICD is seen in stable position. Bones/extrathoracic soft tissue: There are degenerative spurs involving the thoracic spine. IMPRESSION: There is mild bibasilar atelectasis. There is no radiographic evidence of acute cardiopulmonary process. Dictated on workstation # [id number] Dict: 04/06/22 1125 Trans: 04/06/22 1131 [id number] Interpreted by: LIT CALDWELL MD Electronically signed by: Departure Communication (Admissions) EKG shows atrial paced rhythm at 60 with a right bundle branch block no ST changes or ectopy. 1046-reviewed group home MAR and diagnoses list. We will have nursing staff interrogate defibrillator. We will check labs including CBC and CMP to evaluate for other causes of defibrillator discharge. Patient provides his own history. 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 He was able to get the email stating that there were was a rhythm to review however he was not able to see the rhythm so he drove here to interrogate the pacemaker himself. This did show a 17-second run of V. fib that looks like torsades yesterday followed by a single defibrillator discharge at 35 J that converted him back to an atrial paced rhythm. I spoke with Dr. Rosenberg. The initial troponin a little bit elevated at 0.051. We will do a 2-hour repeat at this time. If stable or declining patient can go home. We will adjust his home medications by increasing his amiodarone from 200 mg once a day up to 200 mg [address]. Rosenberg will see him next week. Impression Primary Impression: Defibrillator discharge Disposition: 01 HOME, SELF-CARE Condition: Stable Departure-Patient Inst. Decision time for Depature: 10:50 Referrals: TENNILLE LINDA MD (PCP/Family) Primary Care Physician Patient Instructions: Pacemaker Check Add. Discharge Instructions: 1. Increase your amiodarone dose from 1 tablet once a day to 1 tablet twice a day. Return to ER for any concerns. Call Dr. Rosenberg's office Saturday morning for an appointment for follow-up. Copy Copies To 1: TAYLOR ROSENBERG MD, PETER J APRN Apr 06, 2022 10:47
[2022-04-06 10:53] LABS: BASOPHILS # (AUTO) 0.1 10^3/uL (0.0-0.1); BASOPHILS % (AUTO) 1 % (0-10); EOSINOPHILS # (AUTO) 0.5 10^3/uL (0.0-0.3); EOSINOPHILS % (AUTO) 4 % (0-10); HEMATOCRIT 46 % (40-54); HEMOGLOBIN 15.4 g/dL (13.3-17.7); LYMPHOCYTES % (AUTO) 15 % (12-44); MEAN CORPUSCULAR HEMOGLOBIN 29 pg (25-34); MEAN CORPUSCULAR HGB CONC 33 g/dL (32-36); MEAN CORPUSCULAR VOLUME 89 fL (80-99); MEAN PLATELET VOLUME 11.1 fL (9.0-12.2); MONOCYTES # (AUTO) 1.2 10^3/uL (0.0-1.0); MONOCYTES % (AUTO) 9 % (0-12); NEUTROPHILS # (AUTO) 9.7 10^3/uL (1.8-7.8); NEUTROPHILS % (AUTO) 72 % (42-75); PLATELET COUNT 267 10^3/uL (130-400); WHITE BLOOD COUNT 13.5 10^3/uL (4.3-11.0)
[2022-04-06 11:03] LABS: ALBUMIN 4.3 GM/DL (3.2-4.5); POTASSIUM 4.8 MMOL/L (3.6-5.0)
[2022-04-06 11:05] LABS: TOTAL PROTEIN 7.7 GM/DL (6.4-8.2)
[2022-04-06 11:06] LABS: INR 1.2 (0.8-1.4); PROTHROMBIN TIME PATIENT 15.2 SEC (12.2-14.7)
[2022-04-06 11:07] LABS: BILIRUBIN,TOTAL 0.4 MG/DL (0.1-1.0)
[2022-04-06 11:09] LABS: CREATININE SERUM 1.76 MG/DL (0.60-1.30)
[2022-04-06 11:12] LABS: MAGNESIUM 2.4 MG/DL (1.6-2.4)
--- NOTE | 2022-04-06 11:32 | Diagnostic Imaging Report ---
CLINICAL INDICATION: Patient with chest pain and reported being dizzy yesterday. EXAM: Portable chest x-ray, upright view. COMPARISON: Chest x-ray dated 05/17/2021. FINDINGS: Lungs/pleura: There are curvilinear opacities involving both lung bases and ground-glass opacification which may be related to atelectasis. There is no definite lung infiltrate seen. There is no pneumothorax. There is no pleural effusion. Mediastinum: Unremarkable. Pulmonary vasculature: Unremarkable. Heart: Cardiac silhouette is within normal limits for portable projection. Cardiac pacemaker/AICD is seen in stable position. Bones/extrathoracic soft tissue: There are degenerative spurs involving the thoracic spine. IMPRESSION: There is mild bibasilar atelectasis. There is no radiographic evidence of acute cardiopulmonary process. Dictated by: Dictated on workstation # [id number]
[2022-04-06 13:15] VITALS: BP 120/56
== END 2022-04-06 13:15 | disposition home or self-care (01) ==
LOC: EDUNIT# 10:16 → ER 10:18
DX: T82.199A Other mechanical complication of unspecified cardiac device, initial encounter (principal); F17.210 Nicotine dependence, cigarettes, uncomplicated; Z95.5 Presence of coronary angioplasty implant and graft
CPT/HCPCS: 36415; 71045; 80053; 80162; 83735; 83874; 84484; 85025; 85610; 85730; 93005; 93041

== ENCOUNTER → 2022-05-17 | Outpatient (CLI) | payer MEDICARE, MEDICAID | LOC: CARD 08:59 | PROVIDERS: ATTEND Internal Medicine Cardiovascular Disease | DX: I35.1 Nonrheumatic aortic (valve) insufficiency (principal); I11.9 Hypertensive heart disease without heart failure | CPT/HCPCS: 93306 ==

== ENCOUNTER → 2022-07-04 | Outpatient (CLI) | payer MEDICARE, MEDICAID ==
[~2022-07-04] MED LIST changes: +CATHETER FLUSH 10 ML SYR IVP PRN; +REGADENOSON 0.4 MG/5 ML SYR (LEXISCAN) IV ONE
[2022-07-04 09:25] VITALS: BP 133/66
--- NOTE | 2022-07-04 15:36 | Cardiology Stress Test Report ---
Stress Test Report Date of Procedure/Referring: Date of Procedure: Jul 04, 2022 PCP Hayden Owen MD Admitting Physician Admitting Physician: Attending Physician: Velia Rosenberg MD Indications: CAD Baseline Heart Rate: 67 Baseline Blood Pressure: Blood Pressure Systolic: 133 Blood Pressure Diastolic: 66 Baseline Vitals Vital Signs Date Time Temp Pulse Resp B/P (MAP) Pulse Ox O2 Delivery O2 Flow Rate FiO2 07/04/22 09:25 67 133/66 (88) Baseline EKG: Baseline EKG: NSR Summary After explaining the procedure to the patient, he signed a consent and then brought to the stress nuclear laboratory. Patient received 0.4 mg Lexiscan for stress test, ECG, heart rate and blood pressure were monitored continuously. Resting and stress dose of radio tracer were injected, imaging was acquired and reviewed in short axis, horizontal long axis and vertical long axis views. TID: 1.18 SSS: 25 SDS: 2 EF: 33 Patient tolerated Lexiscan well Fixed defect involving the whole inferior wall and inferolateral wall, mild reversible ischemia involving the lateral wall. Normal left ventricular size with hypokinesia in the inferior wall and inferolateral wall, ejection fraction 33% Overall stress test has not changed significantly compared to the previous study of 2021. Copy Copies To 1: GRISELDA SANTOS BASHAR J MD Jul 04, 2022 15:36
== END ==
LOC: CARD 07:32
PROVIDERS: ATTEND Internal Medicine Cardiovascular Disease
DX: I10 Essential (primary) hypertension (principal); I25.10 Atherosclerotic heart disease of native coronary artery without angina pectoris; R07.2 Precordial pain
CPT/HCPCS: 78452; 93017; A9502

== ENCOUNTER 2022-07-20 10:19 | Observation (INO) | payer MEDICARE, MEDICAID ==
[~2022-07-20] VITALS: Ht 170 cm; Wt 78.9 kg
[~2022-07-20 10:19] MED LIST changes: -CATHETER FLUSH 10 ML SYR IVP PRN; -REGADENOSON 0.4 MG/5 ML SYR (LEXISCAN) IV ONE
--- NOTE | 2022-07-20 11:17 | ED Cardiac General ---
History of Present Illness General Chief Complaint: Cardiac/General Problems Stated Complaint: DEFIBRILLATOR ISSUES Source: patient Exam Limitations: no limitations (JESS IVERSON APRN) History of Present Illness Date Seen by Provider: July 20, 2022 Time Seen by Provider: 11:02 Initial Comments 82-year-old male presents to the ED stating that his defibrillator shocked him this morning at 7:40 AM. Patient reports he was awake prior to the shock and had just gotten up to go to the bathroom and got back into bed when the stroke occurred. States that it was a mild shock. Reports he has been shocked before, states last time it was a much stronger shock which knocked him to the ground. States the defibrillator was placed in 2019. He denies any chest pain, shortness of air, abdominal pain, nausea, vomiting, diarrhea. (JESS IVERSON APRN) Allergies and Home Medications Allergies Coded Allergies: No Known Drug Allergies (Verified , 05/21/19) Patient Home Medication List Home Medication List Reviewed: Yes (JESS IVERSON APRN) Amiodarone HCl (Amiodarone HCl) 200 Mg Tablet, 400 MG PO BID Prescribed by: GRISELDA SANTOS on 07/21/22 1136 Apixaban (Eliquis) 2.5 Mg Tablet, 2.5 MG PO BID Prescribed by: GRISELDA SANTOS on 07/21/22 1136 Aspirin (Aspirin EC) 81 Mg Tablet.dr, 81 MG PO DAILY, (Reported) Entered as Reported by: DINA HENNING on 04/13/15 1028 Carvedilol (Carvedilol) 12.5 Mg Tablet, 12.5 MG PO BID, (Reported) Entered as Reported by: RODNEY CONWAY on 05/08/21 1043 Cholecalciferol (Vitamin D3) (Vitamin D3) 50 Mcg Capsule, 50 MCG PO DAILY, (Repo rted) Entered as Reported by: SKYLA JUAREZ on 05/19/19 1316 Digoxin (Digoxin) 125 Mcg Tablet, 125 MCG PO DAILY, (Reported) Entered as Reported by: VINEET LABOY on 03/27/18 1342 Docusate Sodium (Colace) 100 Mg Capsule, 100 MG PO BID Prescribed by: LYN JACQUES on 06/01/19 1114 Enalapril Maleate (Enalapril Maleate) 2.5 Mg Tablet, 2.5 MG PO DAILY, (Reported) Entered as Reported by: VINEET LABOY on 03/27/18 1342 Ferrous Sulfate (Ferrous Sulfate) 325 Mg Tablet, 325 MG PO Q48H, (Reported) Entered as Reported by: GARCIA HEART on 05/26/19 1142 Furosemide (Furosemide) 40 Mg Tablet, 40 MG PO DAILY, (Reported) Entered as Reported by: VINEET LABOY on 03/27/18 1342 Glimepiride (Glimepiride) 2 Mg Tablet, 1 MG PO HS Prescribed by: GRISELDA SANTOS on 07/21/22 1138 Last Action: New Order Methimazole (Methimazole) 5 Mg Tablet, 5 MG PO DAILY, (Reported) Entered as Reported by: DINA HENNING on 04/13/15 1028 Nitroglycerin (Nitroglycerin) 0.4 Mg Tab.subl, 0.4 MG SL PRN, (Reported) Entered as Reported by: RODNEY CONWAY on 05/08/21 1043 Omeprazole (Omeprazole) 20 Mg Capsule.dr, 20 MG PO DAILY, (Reported) Entered as Reported by: VINEET LABOY on 03/27/18 1342 Propylene Glycol (Systane Balance) 10 Ml Drops, 1 DROP OU Q12H PRN for DRY EYES, (Reported) Entered as Reported by: SKYLA JUAREZ on 05/19/19 1316 Rosuvastatin Calcium (Rosuvastatin Calcium) 10 Mg Tablet, 10 MG PO DAILY, (Reported) Entered as Reported by: RODNEY CONWAY on 05/08/21 1043 Spironolactone (Spironolactone) 25 Mg Tablet, 25 MG PO DAILY, (Reported) Entered as Reported by: SKYLA JUAREZ on 05/19/19 1316 Discontinued Medications Amiodarone HCl (Amiodarone HCl) 200 Mg Tablet, 200 MG PO DAILY, (Reported) Entered as Reported by: SKYLA JUAREZ on 05/19/19 1316 Apixaban (Eliquis) 5 Mg Tablet, 5 MG PO BID, (Reported) Entered as Reported by: GARCIA HEART on 05/26/19 1142 Cefdinir (Cefdinir) 300 Mg Capsule, 300 MG PO BID Prescribed by: ERIC LEE on 05/18/21627 Last Action: Discontinued Review of Systems Review of Systems Constitutional: see HPI (JESS IVERSON APRN) Past Vdwqmjl-Dmieze-Gyrnud Hx Patient Social History Tobacco Use?: No Use of E-Cig and/or Vaping dev: No Substance use?: No Alcohol Use?: No Pt feels they are or have been: No (JESS IVERSON APRN) Immunizations Up To Date Tetanus Booster (TDap): Unknown Influenza Vaccine Up-to-Date: Yes; Up-to-Date First/Initial COVID19 Vaccinat: "3 shots" Second COVID19 Vaccination Yamil: MAY 2020 Third COVID19 Vaccination Date: NO (JESS IVERSON APRN) Seasonal Allergies Seasonal Allergies: No (JESS IVERSON APRN) Past Medical History Surgery/Hospitalization HX: HEART FAILURE, HTN, ANEMIA, CEREBRAL INFARCTION WITH APHASIA, HYPERCHOLESTEROLEMIA, NIDDM, GERD Surgeries: Yes (SEE BELOW) Abdominal, Bowel Surgery, Cardiac, Defibrillator Respiratory: No Cardiac: Yes (DEFIBRILLATOR; CARDIAC CATH-EXTENSIVE DZ-NO INTERVENTION; V-TACH) Atrial Fibrillation, Chronic Edema/Swelling, Coronary Artery Disease, High Cholesterol, Hypertension, Irregular Heartbeat Neurological: Yes (CVA WITH RIGHT SIDE WEAKNESS 03/2018) Stroke Reproductive Disorders: No Genitourinary: Yes (INCONTINENCE) Renal Failure Gastrointestinal: Yes (COLON CANCER DX 05/2019) Gastroesophageal Reflux, Polyps Musculoskeletal: Yes (Rt hemiparesis since CVA 03/2018) Arthritis Endocrine: Yes Diabetes, Non-Insulin dep HEENT: No Loss of Vision: Denies Hearing Impairment: Denies Cancer: Yes (R COLON RESECTION 05/2019) Skin, Melanoma, Colon Did You Recieve Any Treatments: Yes What Type of Treatment Did You: Surgical Intervention Psychosocial: No Integumentary: No Blood Disorders: Yes (ANEMIA) Adverse Reaction/Blood Tranf: No (JESS IVERSON APRN) Family Medical History Patient reports no known family medical history. Diabetes PSH: -SKIN CANCER REMOVED WITH SKIN GRAFT -CARDIAC CATH 2015--EXTENSIVE DISEASE, NOT AMENABLE TO INTERVENTION. -DEFIBRILLATOR -COLONOSCOPY 05/2019 -RIGHT COLON RESECTION FOR CANCER 05/28/19 (JESS IVERSON APRN) Physical Exam Vital Signs Vital Signs - First Documented 07/20/22 10:40 Temp 36.8 Pulse 64 Resp 20 B/P (MAP) 122/67 (85) Pulse Ox 91 O2 Delivery Room Air (ERIC MCKEON MD) Vital Signs Capillary Refill : (JESS IVERSON APRN) Height, Weight, BMI Height: 5'7.00" Weight: 190lbs. 2.0oz. 86.445975tf; 27.00 BMI Method:Estimated General Appearance: No Apparent Distress, WD/WN Neck: Non Tender, Supple Respiratory: Lungs Clear, Normal Breath Sounds, No Accessory Muscle Use, No Respiratory Distress Cardiovascular: Regular Rate, Rhythm Extremity: Normal Inspection Neurologic/Psychiatric: Alert, Normal Mood/Affect Skin: Normal Color, Warm/Dry (JESS IVERSON APRN) Progress/Results/Core Measures Results/Orders Lab Results Laboratory Tests Test 07/20/22 10:40 Range/Units White Blood Count 11.2 H 4.3-11.0 10^3/uL Red Blood Count 4.67 4.30-5.52 10^6/uL Hemoglobin 13.8 13.3-17.7 g/dL Hematocrit 41 40-54 % Mean Corpuscular Volume 88 80-99 fL Mean Corpuscular Hemoglobin 30 25-34 pg Mean Corpuscular Hemoglobin Concent 33 32-36 g/dL Red Cell Distribution Width 14.3 10.0-14.5 % Platelet Count 237 130-400 10^3/uL Mean Platelet Volume 11.2 9.0-12.2 fL Immature Granulocyte % (Auto) 0 % Neutrophils (%) (Auto) 74 42-75 % Lymphocytes (%) (Auto) 12 12-44 % Monocytes (%) (Auto) 10 0-12 % Eosinophils (%) (Auto) 3 0-10 % Basophils (%) (Auto) 1 0-10 % Neutrophils # (Auto) 8.3 H 1.8-7.8 10^3/uL Lymphocytes # (Auto) 1.3 1.0-4.0 10^3/uL Monocytes # (Auto) 1.1 H 0.0-1.0 10^3/uL Eosinophils # (Auto) 0.4 H 0.0-0.3 10^3/uL Basophils # (Auto) 0.1 0.0-0.1 10^3/uL Immature Granulocyte # (Auto) 0.1 0.0-0.1 10^3/uL Prothrombin Time 17.6 H 12.2-14.7 SEC INR Comment 1.4 0.8-1.4 Activated Partial Thromboplast Time 39 H 24-35 SEC Sodium Level 137 135-145 MMOL/L Potassium Level 4.3 3.6-5.0 MMOL/L Chloride Level 101 98-107 MMOL/L Carbon Dioxide Level 23 21-32 MMOL/L Anion Gap 13 5-14 MMOL/L Blood Urea Nitrogen 35 H 7-18 MG/DL Creatinine 1.71 H 0.60-1.30 MG/DL Estimat Glomerular Filtration Rate 40 BUN/Creatinine Ratio 20 Glucose Level 163 H 70-105 MG/DL Calcium Level 9.0 8.5-10.1 MG/DL Corrected Calcium 9.1 8.5-10.1 MG/DL Magnesium Level 2.2 1.6-2.4 MG/DL Total Bilirubin 0.4 0.1-1.0 MG/DL Aspartate Amino Transf (AST/SGOT) 39 H 5-34 U/L Alanine Aminotransferase (ALT/SGPT) 58 H 0-55 U/L Alkaline Phosphatase 41 40-136 U/L Troponin I 0.033 H <0.028 NG/ML Total Protein 6.8 6.4-8.2 GM/DL Albumin 3.9 3.2-4.5 GM/DL (ERIC MCKEON MD) Vital Signs/I&O 07/20/22 07/20/22 07/20/22 10:40 13:00 13:03 Temp 36.8 36.0 Pulse 64 74 60 Resp 20 20 14 B/P (MAP) 122/67 (85) 126/70 (88) 102/55 Pulse Ox 91 95 93 O2 Delivery Room Air Room Air Room Air (ERIC MCKEON MD) Progress Progress Note : Time: 11:17 Progress Note Patient seen and evaluated, resting comfortably in bed, no acute distress. Defibrillator was interrogated by nurse, report states that it was true ventricular fibrillation with appropriate shock, rate was greater than 300. 1151 Labs and x-ray reviewed. CBC shows slightly elevated RBCs 11.2. CMP shows normal potassium 4.3, BUN elevated 35, creatinine elevated 1.71, GFR 40, kidney function similar to March 2022, glucose elevated 163, AST elevated 39, ALT elevated 58. Troponin slightly elevated 0.033. Magnesium normal 2.2. Coags show PT 17.6, APTT elevated 39. Chest x-ray negative for acute cardiopulmonary process. Report from [facility] reviewed, shows torsades de points prior to defibrillator discharge. I consulted Dr. Rosenberg, patient's barrel rifler hook. Dr. Rosenberg recommends admission for observation and to increase amiodarone to 400 mg twice daily. [address] Santos, hospitalist, regarding admitting patient. She agrees to admit patient for observation to ICU. She will place admission orders. (JESS IVERSON APRN) Initial ECG Impression Date: July 20, 2022 Initial ECG Impression Time: 10:43 Initial ECG Rate: 61 Initial ECG Rhythm: Normal Sinus Initial ECG Intervals: QRS (Elevated 150) Initial ECG Impression: Nonspecific Changes Initial ECG Comparisson: Changed Comment Right bundle branch block (JESS IVERSON APRN) Diagnostic Imaging Diagonstic Imaging: Xray Plain Films/CT/US/NM/MRI: chest Comments [facility], [place] NAME: HARI [facility] REC#: [id number] PT STATUS: REG ER : 1940 PHYSICIAN: JESS IVERSON APRN ADMIT DATE: 07/20/22/ER Draft Date of Exam:07/20/22 CHEST 1 VIEW, AP/PA ONLY INDICATION: Chest pain COMPARISON: 04/06/2022 FINDINGS: Single frontal view of the chest demonstrates normal heart size and pulmonary vascularity. The lungs are well aerated and clear. No large pleural effusion or pneumothorax is seen. The visualized osseous structures show no acute abnormalities. Left-sided AICD is noted. Large gallstone projects over the right upper abdominal quadrant IMPRESSION: 1. No acute cardiopulmonary process. Dictated on workstation # [id number] Dict: 07/20/22 1138 Trans: 07/20/22 1140 [id number] Interpreted by: CARITO ANDUJAR MD Electronically signed by: (JESS IVERSON APRN) Departure Communication (Admissions) Time/Spoke to Admitting Phy: 12:05 Dr. Santos, hospitalist, see progress note. Time/Spoke to Consulting Phy: 11:51 Dr. Rosenberg, cardiology, see progress note. (JESS IVERSON APRN) Impression Primary Impression: Defibrillator discharge Additional Impression: Torsades de pointes Disposition: ADMITTED INPATIENT Condition: Stable Admissions Decision to Admit Reason: Admit from ER (General) Decision to Admit/Date: July 20, 2022 Time/Decision to Admit Time: 12:05 (JESS IVERSON APRN) Departure-Patient Inst. Referrals: GRISELDA SANTOS DO (PCP/Family) Primary Care Physician Scripts Glimepiride (Glimepiride) 2 Mg Tablet 1 MG PO HS for 7 Days, TAB Prov: GRISELDA SANTOS DO 07/21/22 Amiodarone HCl (Amiodarone HCl) 200 Mg Tablet 400 MG PO BID, #60 TAB Prov: GRISELDA SANTOS DO 07/21/22 Apixaban (Eliquis) 2.5 Mg Tablet 2.5 MG PO BID, #60 TAB Prov: GRISELDA SANTOS DO 07/21/22 ATTENDING PHYSICIAN NOTE: I was physically present as attending physician in the emergency department during the care of this patient, but I was not directly involved in the decision making or delivery of care for this patient. (ERIC MCKEON MD) JESS IVERSON APRN July 20, 2022 11:17 ERIC MCKEON MD July 22, 2022 07:34
[2022-07-20 11:24] LABS: BASOPHILS # (AUTO) 0.1 10^3/uL (0.0-0.1); BASOPHILS % (AUTO) 1 % (0-10); EOSINOPHILS # (AUTO) 0.4 10^3/uL (0.0-0.3); EOSINOPHILS % (AUTO) 3 % (0-10); HEMATOCRIT 41 % (40-54); HEMOGLOBIN 13.8 g/dL (13.3-17.7); LYMPHOCYTES # (AUTO) 1.3 10^3/uL (1.0-4.0); LYMPHOCYTES % (AUTO) 12 % (12-44); MEAN CORPUSCULAR HEMOGLOBIN 30 pg (25-34); MEAN CORPUSCULAR HGB CONC 33 g/dL (32-36); MEAN CORPUSCULAR VOLUME 88 fL (80-99); MEAN PLATELET VOLUME 11.2 fL (9.0-12.2); MONOCYTES # (AUTO) 1.1 10^3/uL (0.0-1.0); MONOCYTES % (AUTO) 10 % (0-12); NEUTROPHILS # (AUTO) 8.3 10^3/uL (1.8-7.8); NEUTROPHILS % (AUTO) 74 % (42-75); PLATELET COUNT 237 10^3/uL (130-400); WHITE BLOOD COUNT 11.2 10^3/uL (4.3-11.0)
[2022-07-20 11:29] LABS: ALBUMIN 3.9 GM/DL (3.2-4.5); POTASSIUM 4.3 MMOL/L (3.6-5.0)
[2022-07-20 11:32] LABS: INR 1.4 (0.8-1.4); PROTHROMBIN TIME PATIENT 17.6 SEC (12.2-14.7); TOTAL PROTEIN 6.8 GM/DL (6.4-8.2)
[2022-07-20 11:33] LABS: BILIRUBIN,TOTAL 0.4 MG/DL (0.1-1.0)
[2022-07-20 11:35] LABS: CREATININE SERUM 1.71 MG/DL (0.60-1.30)
[2022-07-20 11:38] LABS: MAGNESIUM 2.2 MG/DL (1.6-2.4)
--- NOTE | 2022-07-20 11:40 | Diagnostic Imaging Report ---
INDICATION: Chest pain COMPARISON: 04/06/2022 FINDINGS: Single frontal view of the chest demonstrates normal heart size and pulmonary vascularity. The lungs are well aerated and clear. No large pleural effusion or pneumothorax is seen. The visualized osseous structures show no acute abnormalities. Left-sided AICD is noted. Large gallstone projects over the right upper abdominal quadrant IMPRESSION: 1. No acute cardiopulmonary process. Dictated by: Dictated on workstation # [id number]
--- NOTE | 2022-07-20 12:32 | History & Physical ---
History of Present Illness HPI/Chief Complaint CC: Defib discharge HPI: This is an 82yo[place] patient of mine who has a h/o CAD and CVA who presented to the ER with complaints of his defibrillator discharging. It was interrogated and reported to Dr Rosenberg who recommended increasing Amiodarone and observing in ICU. Currently he is doing well and denies pain. Talks about Metformin every time he sees me. Source: patient, RN/MD, old records Date Seen 07/20/22 Time Seen by a Provider: 18:00 Attending Physician Josie Duran DO PCP Admitting Physician: Attending Physician: Referring Physician Date of Admission Home Medications & Allergies Home Medications Reviewed patient Home Medication Reconciliation performed by pharmacy medication reconciliations fiber technician and/or nursing. Patients Allergies have been reviewed. Allergies Allergies Coded Allergies No Known Drug Allergies (Verified05/21/19) Past Fpeofqh-Ldpmet-Xfmthd Hx Past Med/Social Hx: Reviewed Nursing Past Med/Soc Hx, Reviewed and Corrections made Patient Social History Marrital Status: single Employed/Student: retired Alcohol Use: Past History Smoking Status: Former Smoker Former Smoker, Quit: Apr 17, 2018 Type Used: Cigarettes, Pipe Recent Hopitalizations: No Immunizations Up To Date Tetanus Booster (TDap): Unknown Date of Pneumonia Vaccine: Mar 19, 2019 Date of Influenza Vaccine: Dec 16, 2020 Seasonal Allergies Seasonal Allergies: No Past Medical History Surgeries: Abdominal, Bowel Surgery, Cardiac, Defibrillator Respiratory: COPD Cardiac: Atrial Fibrillation, Chronic Edema/Swelling, Coronary Artery Disease, High Cholesterol, Hypertension, Irregular Heartbeat Neurological: Stroke Reproductive: No Genitourinary: Renal Failure Gastrointestinal: Gastroesophageal Reflux, Polyps Musculoskeletal: Arthritis Endocrine: Diabetes, Non-Insulin dep Loss of Vision: Denies Hearing Impairment: Denies Cancer: Skin, Melanoma, Colon Did You Recieve Any Treatments: Yes What Type of Treatment Did You: Surgical Intervention History of Blood Disorders: Yes (ANEMIA) Adverse Reaction to Blood Vizcarra: No Family History Patient reports no known family medical history. Diabetes PSH: -SKIN CANCER REMOVED WITH SKIN GRAFT -CARDIAC CATH 2015--EXTENSIVE DISEASE, NOT AMENABLE TO INTERVENTION. -DEFIBRILLATOR -COLONOSCOPY 05/2019 -RIGHT COLON RESECTION FOR CANCER 05/28/19 Review of Systems Constitutional: see HPI, malaise, weakness Physical Exam Physical Exam Vital Signs Vital Signs - First Documented 07/20/22 07/20/22 10:40 15:26 Temp 36.8 Pulse 64 Resp 20 B/P (MAP) 122/67 (85) Pulse Ox 91 O2 Delivery Room Air FiO2 21 Capillary Refill : Less Than 3 Seconds Height, Weight, BMI Height: 5'7.00" Weight: 190lbs. 2.0oz. 86.516619uh; 26.00 BMI Method:Estimated General Appearance: No Apparent Distress, WD/WN, Chronically ill Neck: Non Tender, Supple Respiratory: Lungs Clear, Normal Breath Sounds, No Accessory Muscle Use, No Respiratory Distress Cardiovascular: Regular Rate, Rhythm Extremity: Normal Inspection Neurologic/Psychiatric: Alert, Normal Mood/Affect Skin: Normal Color, Warm/Dry Results Results/Procedures Labs Laboratory Tests 07/20/22 10:40 07/21/22 03:59 Patient resulted labs reviewed. Assessment/Plan Admission Diagnosis Assessment: Defib discharge CAD CVA hx DM HTN HLP Dementia Plan: Cardiology consultation Monitor closely Admission Status: Observation JOSIE DURAN DO July 20, 2022 12:32
[2022-07-20] MEDS ORDERED: BISACODYL 10 MG SUPP (DULCOLAX) PR PRN (13:30)
[2022-07-20] MEDS ORDERED: ONDANSETRON 4 MG (ZOFRAN) ORAL DISSOLVE TAB PO PRN (13:30)
[2022-07-20] MEDS ORDERED: LACTULOSE SYRUP 10GM/15ML (ENULOSE) 30ML UDC PO PRN (13:30)
[2022-07-20] MEDS ORDERED: MELATONIN 3 MG TABLET PO PRN (13:30)
[2022-07-20] MEDS ORDERED: HYDROmorphone 2 MG/ML VIAL (DILAUDID) IV PRN (13:30)
[2022-07-20] MEDS ORDERED: NS IV 500 ML 500 ML IV PRN (13:30)
[2022-07-20] MEDS ORDERED: ANTACID SUSP 30 ML UDC (MYLANTA) PO PRN (13:30)
[2022-07-20] MEDS ORDERED: NS IV 1000 ML 1,000 ML IV SCH (13:30)
[2022-07-20] MEDS ORDERED: polyethylene glycoL POWDER 17 GM (MIRALAX) PACK PO PRN (13:30)
[2022-07-20] MEDS ORDERED: ONDANSETRON 4 MG/2 ML (SDV) Z0FRAN IV PRN (13:30)
[2022-07-20] MEDS ORDERED: ACETAMINOPHEN 325 MG TABLET PO PRN (13:30)
[2022-07-20] MEDS ORDERED: MILK OF MAGNESIA 400 MG/5 ML 30 ML UDC PO PRN (13:30)
[2022-07-20] MEDS ORDERED: diphenhydrAMINE 25 MG TAB (BENADRYL) PO PRN (13:30)
[2022-07-20] MEDS ORDERED: CALCIUM CARBONATE 500 MG (TUMS) TAB.CHEW PO PRN (13:30)
[2022-07-20] MEDS ORDERED: diphenhydrAMINE 50 MG/ML INJ (BENADRYL) IVP PRN (13:30)
[2022-07-20 15:26] VITALS: BP 102/55
[2022-07-20] MEDS: inSUlin ASPART (NovoLOG) 1 UNIT/0.01 ML (CHARGE PER UNIT) SC SCH ×2 (16:04→20:29)
--- NOTE | 2022-07-20 18:34 | Tele-ICU Consult ---
History of Present Illness History of Present Illness Date Seen by Provider: July 20, 2022 Time Seen by Provider: 18:34 History of Present Illness (Tele-ICU Physician , consultation as per request of PCP Service provided via interactive audio and video telecommunications E-CARE system to a patient admitted to ICU bed in [facility]. Available chart/ vitals / labs / Images reviewed H&P is from ER notes Patient's information available about PMH, Shx, Fhx allergy reviewed inEMR. ROS as per chart and RN report Now in ICU, hemodynamically stable Video assessment done using teleICU camera, rest of exam as per RN Discussed with RN. Hospital course: (07/20) 82 y/o male with torsades AICD discharged A/P Torsades Report from [facility] reviewed in ER , shows torsades de points prior to defibrillator discharge. - cardiology increased amiodarone to 400 mg tbid -on Eliquis - to cont - monitor CKD - monitor COPD- cont home meds Lines : , (Central Line Necessity Reviewed) Retana: OG: Nutrition: Analgesia: Anxiety/ delirium VTE Prophylaxis: eliquis Stress Ulcer Prophylaxis: na Glycemic Control: Plans in collaboration with bedside consultants and IM MDs. Discussed with RN to reach out if any questions or concerns A total of 10 minutes of critical care time was devoted to this patient today, required to treat and/or prevent further deterioration of critical care condition ( as above ) . I am remotely monitoring this patient from another state. I am unable to do the bedside exam, and history/physical and pertinent information is taken from other notes in the computer and bedside staff. . Allergies and Home Medications Allergies Coded Allergies: No Known Drug Allergies (Verified , 05/21/19) Home Medications Amiodarone HCl 200 Mg Tablet, 200 MG PO DAILY, (Reported) Apixaban 5 Mg Tablet, 5 MG PO BID, (Reported) Aspirin 81 Mg Tablet.dr, 81 MG PO DAILY, (Reported) Carvedilol 12.5 Mg Tablet, 12.5 MG PO BID, (Reported) Cefdinir 300 Mg Capsule, 300 MG PO BID Prescribed by: ERIC LEE on 05/18/21 0628 Cholecalciferol (Vitamin D3) 50 Mcg Capsule, 50 MCG PO DAILY, (Reported) Digoxin 125 Mcg Tablet, 125 MCG PO DAILY, (Reported) Docusate Sodium 100 Mg Capsule, 100 MG PO BID Prescribed by: LYN JACQUES on 06/01/19 1114 Enalapril Maleate 2.5 Mg Tablet, 2.5 MG PO DAILY, (Reported) Ferrous Sulfate 325 Mg Tablet, 325 MG PO Q48H, (Reported) Furosemide 40 Mg Tablet, 40 MG PO DAILY, (Reported) Glimepiride 2 Mg Tablet, 2 MG PO HS, (Reported) Methimazole 5 Mg Tablet, 5 MG PO DAILY, (Reported) Nitroglycerin 0.4 Mg Tab.subl, 0.4 MG SL PRN, (Reported) Omeprazole 20 Mg Capsule.dr, 20 MG PO DAILY, (Reported) Propylene Glycol 10 Ml Drops, 1 DROP OU Q12H PRN for DRY EYES, (Reported) Rosuvastatin Calcium 10 Mg Tablet, 10 MG PO DAILY, (Reported) Spironolactone 25 Mg Tablet, 25 MG PO DAILY, (Reported) Past Medical/Social/Family Hx Patient Social History Tobacco Use?: No Use of E-Cig and/or Vaping dev: No Substance use?: No Alcohol Use?: No Pt stated abuse/neglect: No Immunizations Up To Date Influenza Vaccine Up-to-Date: Yes; Up-to-Date First/Initial COVID19 Vaccinat: "3 shots" Second COVID19 Vaccination Yamil: MAY 2020 Tetanus Booster (TDap): More Than 5 Years Hepatitis A: No Hepatitis B: No TB Skin Test: None Date of Pneumonia Vaccine: Mar 19, 2019 Current Status Advance Directives: Yes Advance Directive Location: FULL CODE Communicates: Verbally Primary Language: Burmese Preferred Spoken Language: Burmese Is interpretation needed?: No Sensory deficits: Vision impairment, Hearing impairment, Speech impairment Implanted or Applied Medical D: Pacemaker, Stents Family Medical History Family Hx: PSH: -SKIN CANCER REMOVED WITH SKIN GRAFT -CARDIAC CATH 2015--EXTENSIVE DISEASE, NOT AMENABLE TO INTERVENTION. -DEFIBRILLATOR -COLONOSCOPY 05/2019 -RIGHT COLON RESECTION FOR CANCER 05/28/19 Review of Systems Constitutional: see HPI Focused Exam Height, Weight, BMI Height: 5'7.00" Weight: 190lbs. 2.0oz. 86.750695bc; 27.19 BMI Method:Estimated Exam Exam Patient acknowledged, consented, and participated in this virtual visit which was conducted using real time audio/video Vital Signs Date Time Temp Pulse Resp B/P (MAP) Pulse Ox O2 Delivery O2 Flow Rate FiO2 07/20/22 18:00 60 28 133/60 (84) 94 Room Air 07/20/22 17:00 60 106/43 (64) 92 Room Air 07/20/22 16:00 61 25 101/54 (70) 94 Room Air 07/20/22 16:00 97 Room Air 07/20/22 15:50 35.8 07/20/22 15:26 36.0 60 97 21 07/20/22 13:30 65 07/20/22 13:20 97 Room Air 07/20/22 13:03 36.0 60 14 102/55 93 Room Air 07/20/22 13:00 74 20 126/70 (88) 95 Room Air 07/20/22 10:40 36.8 64 20 122/67 (85) 91 Room Air Height & Weight Height: 5'7.00" Weight: 190lbs. 2.0oz. 86.013819ei; 27.19 BMI Method:Estimated General Appearance: No Apparent Distress, WD/WN, Other Neck: Non Tender, Supple Respiratory: Lungs Clear, Normal Breath Sounds, No Accessory Muscle Use, No Respiratory Distress Cardiovascular: Regular Rate, Rhythm Capillary Refill: Less Than 3 Seconds Extremity: Normal Inspection Neurologic/Psychiatric: Alert, Normal Mood/Affect Skin: Normal Color, Warm/Dry Results Lab Laboratory Tests 07/20/22 10:40 Assessment/Plan Assessment/Plan 1 SHAKILA BLOUNT MD July 20, 2022 18:34
[2022-07-20] MEDS: SENNOSIDES 8.6 MG (SENOKOT) TAB PO SCH (20:27)
[2022-07-20] MEDS: AMIODARONE 200 MG (CORDARONE) TAB PO SCH (20:27)
[2022-07-20] MEDS: APIXABAN 2.5 MG (ELIQUIS) TABLET PO SCH (20:27)
[2022-07-20] MEDS: DOCUSATE SODIUM 100 MG (COLACE) CAP PO SCH (20:27)
[2022-07-21 04:15] LABS: BASOPHILS # (AUTO) 0.1 10^3/uL (0.0-0.1); BASOPHILS % (AUTO) 1 % (0-10); EOSINOPHILS # (AUTO) 0.5 10^3/uL (0.0-0.3); EOSINOPHILS % (AUTO) 5 % (0-10); HEMATOCRIT 38 % (40-54); HEMOGLOBIN 12.7 g/dL (13.3-17.7); LYMPHOCYTES # (AUTO) 1.4 10^3/uL (1.0-4.0); LYMPHOCYTES % (AUTO) 15 % (12-44); MEAN CORPUSCULAR HEMOGLOBIN 30 pg (25-34); MEAN CORPUSCULAR HGB CONC 33 g/dL (32-36); MEAN CORPUSCULAR VOLUME 89 fL (80-99); MEAN PLATELET VOLUME 11.3 fL (9.0-12.2); MONOCYTES % (AUTO) 11 % (0-12); NEUTROPHILS # (AUTO) 6.5 10^3/uL (1.8-7.8); NEUTROPHILS % (AUTO) 69 % (42-75); PLATELET COUNT 207 10^3/uL (130-400); WHITE BLOOD COUNT 9.5 10^3/uL (4.3-11.0)
[2022-07-21 04:28] LABS: ALBUMIN 3.4 GM/DL (3.2-4.5); POTASSIUM 4.1 MMOL/L (3.6-5.0)
[2022-07-21 04:29] LABS: CALCIUM 8.8 MG/DL (8.5-10.1)
[2022-07-21 04:31] LABS: TOTAL PROTEIN 5.7 GM/DL (6.4-8.2)
[2022-07-21 04:32] LABS: BILIRUBIN,TOTAL 0.3 MG/DL (0.1-1.0)
[2022-07-21 04:34] LABS: CREATININE SERUM 1.36 MG/DL (0.60-1.30); PHOSPHORUS 3.1 MG/DL (2.3-4.7)
[2022-07-21 04:37] LABS: MAGNESIUM 2.2 MG/DL (1.6-2.4)
[2022-07-21] MEDS: inSUlin ASPART (NovoLOG) 1 UNIT/0.01 ML (CHARGE PER UNIT) SC SCH (04:55)
[2022-07-21] MEDS ORDERED: POTASSIUM CL 10MEQ/50ML IVPB 50 ML IV SCH (06:00)
[2022-07-21] MEDS ORDERED: MAGNESIUM 1 GM/100 ML IVPB 100 ML IV SCH (06:00)
[2022-07-21] MEDS ORDERED: KCL 20 MEQ TAB (K-DUR) PO SCH (06:00)
--- NOTE | 2022-07-21 08:38 | Diagnostic Imaging Report ---
INDICATION: Chest pain. Comparison is made with prior exam of 07/20/2022. FINDINGS: There is cardiomegaly. Lungs are clear. No pleural effusion or pneumothorax. Mediastinum is unremarkable. Pacemaker overlies left hemithorax. IMPRESSION: No acute cardiopulmonary abnormality. Cardiomegaly. Dictated by: Dictated on workstation # [id number]
[2022-07-21] MEDS: APIXABAN 2.5 MG (ELIQUIS) TABLET PO SCH (08:43)
[2022-07-21] MEDS: AMIODARONE 200 MG (CORDARONE) TAB PO SCH (08:43)
[2022-07-21] MEDS: DOCUSATE SODIUM 100 MG (COLACE) CAP PO SCH (08:44)
[2022-07-21] MEDS: SENNOSIDES 8.6 MG (SENOKOT) TAB PO SCH (08:44)
[2022-07-21] MEDS ORDERED: ASPIRIN 81 MG CHEW (CHILDREN'S ASA) PO SCH (09:00)
[2022-07-21] MEDS ORDERED: APIX2.5T PO (11:36)
[2022-07-21] MEDS ORDERED: AMIO200T65 PO (11:36)
[2022-07-21] MEDS ORDERED: GLIM2TAB4 PO (11:38)
--- NOTE | 2022-07-21 11:40 | Discharge Summary ---
Diagnosis/Chief Complaint Date of Admission July 20, 2022 at 13:03 Date of Discharge Discharge Date: July 21, 2022 Discharge Diagnosis Defib discharge HTN CAD HLP Elevated troponin declined cath CKD h/o CVA Discharge Summary Discharge Physical Examination Allergies: Coded Allergies: No Known Drug Allergies (Verified , 05/21/19) Vitals & I&Os Vital Signs Date Time Temp Pulse Resp B/P (MAP) Pulse Ox O2 Delivery O2 Flow Rate FiO2 07/21/22 13:28 07/21/22 12:30 98 Room Air 07/21/22 11:57 36.3 07/21/22 11:00 60 13 07/20/22 15:26 21 General Appearance: Alert, Oriented X3, Cooperative Respiratory: Clear to Auscultation Cardiovascular: Regular Rate Psych/Mental Status: Mental Status NL Hospital Course Was the Problem List Reviewed?: Yes Short course after admitted to ICU following defib discharge and elevated trop. No further issues occurred and Amio was increased to 400mg PO BID and he was DC after declining cath. Labs (last 24 hrs) Laboratory Tests 07/20/22 10:40: White Blood Count 11.2H, Red Blood Count 4.67, Hemoglobin 13.8, Hematocrit 41, Mean Corpuscular Volume 88, Mean Corpuscular Hemoglobin 30, Mean Corpuscular Hemoglobin Concent 33, Red Cell Distribution Width 14.3, Platelet Count 237, Mean Platelet Volume 11.2, Immature Granulocyte % (Auto) 0, Neutrophils (%) (Auto) 74, Lymphocytes (%) (Auto) 12, Monocytes (%) (Auto) 10, Eosinophils (%) (Auto) 3, Basophils (%) (Auto) 1, Neutrophils # (Auto) 8.3H, Lymphocytes # (Auto) 1.3, Monocytes # (Auto) 1.1H, Eosinophils # (Auto) 0.4H, Basophils # (Auto) 0.1, Immature Granulocyte # (Auto) 0.1, Prothrombin Time 17.6H, INR Comment 1.4, Activated Partial Thromboplast Time 39H, Sodium Level 137, Potassium Level 4.3, Chloride Level 101, Carbon Dioxide Level 23, Anion Gap 13, Blood Urea Nitrogen 35H, Creatinine 1.71H, Estimat Glomerular Filtration Rate 40, BUN/Creatinine Ratio 20, Glucose Level 163H, Calcium Level 9.0, Corrected Calcium 9.1, Magnesium Level 2.2, Total Bilirubin 0.4, Aspartate Amino Transf (AST/SGOT) 39H, Alanine Aminotransferase (ALT/SGPT) 58H, Alkaline Phosphatase 41, Troponin I 0.033H, Total Protein 6.8, Albumin 3.9 07/20/22 15:58: Glucometer 196H 07/20/22 20:28: Glucometer 152H 07/21/22 03:59: White Blood Count 9.5, Red Blood Count 4.30, Hemoglobin 12.7L, Hematocrit 38L, Mean Corpuscular Volume 89, Mean Corpuscular Hemoglobin 30, Mean Corpuscular Hemoglobin Concent 33, Red Cell Distribution Width 14.3, Platelet Count 207, Mean Platelet Volume 11.3, Immature Granulocyte % (Auto) 1, Neutrophils (%) (Auto) 69, Lymphocytes (%) (Auto) 15, Monocytes (%) (Auto) 11, Eosinophils (%) (Auto) 5, Basophils (%) (Auto) 1, Neutrophils # (Auto) 6.5, Lymphocytes # (Auto) 1.4, Monocytes # (Auto) 1.0, Eosinophils # (Auto) 0.5H, Basophils # (Auto) 0.1, Immature Granulocyte # (Auto) 0.1, Sodium Level 139, Potassium Level 4.1, Chloride Level 106, Carbon Dioxide Level 22, Anion Gap 11, Blood Urea Nitrogen 28H, Creatinine 1.36H, Estimat Glomerular Filtration Rate 53, BUN/Creatinine Ratio 21, Glucose Level 107H, Calcium Level 8.8, Corrected Calcium 9.3, Magnesium Level 2.2, Total Bilirubin 0.3, Aspartate Amino Transf (AST/SGOT) 38H, Alanine Aminotransferase (ALT/SGPT) 53, Alkaline Phosphatase 36L, Total Protein 5.7L, Albumin 3.4, Phosphorus Level 3.1 07/21/22 10:55: Glucometer 184H Microbiology 07/20/22 MRSA Screen - Final, Complete MRSA not isolated Pending Labs Microbiology Date/Time Source Procedure Growth Status 07/20/22 13:54 Nasal MRSA Screen - Final MRSA not isolated Complete Laboratory Tests 07/20/22 10:40: White Blood Count 11.2, Red Blood Count 4.67, Hemoglobin 13.8, Hematocrit 41, Mean Corpuscular Volume 88, Mean Corpuscular Hemoglobin 30, Mean Corpuscular Hemoglobin Concent 33, Red Cell Distribution Width 14.3, Platelet Count 237, Mean Platelet Volume 11.2, Immature Granulocyte % (Auto) 0, Neutrophils (%) (Auto) 74, Lymphocytes (%) (Auto) 12, Monocytes (%) (Auto) 10, Eosinophils (%) (Auto) 3, Basophils (%) (Auto) 1, Neutrophils # (Auto) 8.3, Lymphocytes # (Auto) 1.3, Monocytes # (Auto) 1.1, Eosinophils # (Auto) 0.4, Basophils # (Auto) 0.1, Immature Granulocyte # (Auto) 0.1, Prothrombin Time 17.6, INR Comment 1.4, Activated Partial Thromboplast Time 39, Sodium Level 137, Potassium Level 4.3, Chloride Level 101, Carbon Dioxide Level 23, Anion Gap 13, Blood Urea Nitrogen 35, Creatinine 1.71, Estimat Glomerular Filtration Rate 40, BUN/Creatinine Ratio 20, Glucose Level 163, Calcium Level 9.0, Corrected Calcium 9.1, Magnesium Level 2.2, Total Bilirubin 0.4, Aspartate Amino Transf (AST/SGOT) 39, Alanine Aminotransferase (ALT/SGPT) 58, Alkaline Phosphatase 41, Troponin I 0.033, Total Protein 6.8, Albumin 3.9 07/20/22 15:58: Glucometer 196 07/20/22 20:28: Glucometer 152 07/21/22 03:59: White Blood Count 9.5, Red Blood Count 4.30, Hemoglobin 12.7, Hematocrit 38, Mean Corpuscular Volume 89, Mean Corpuscular Hemoglobin 30, Mean Corpuscular Hemoglobin Concent 33, Red Cell Distribution Width 14.3, Platelet Count 207, Mean Platelet Volume 11.3, Immature Granulocyte % (Auto) 1, Neutrophils (%) (Auto) 69, Lymphocytes (%) (Auto) 15, Monocytes (%) (Auto) 11, Eosinophils (%) (Auto) 5, Basophils (%) (Auto) 1, Neutrophils # (Auto) 6.5, Lymphocytes # (Auto) 1.4, Monocytes # (Auto) 1.0, Eosinophils # (Auto) 0.5, Basophils # (Auto) 0.1, Immature Granulocyte # (Auto) 0.1, Sodium Level 139, Potassium Level 4.1, Chloride Level 106, Carbon Dioxide Level 22, Anion Gap 11, Blood Urea Nitrogen 28, Creatinine 1.36, Estimat Glomerular Filtration Rate 53, BUN/Creatinine Ratio 21, Glucose Level 107, Calcium Level 8.8, Corrected Calcium 9.3, Magnesium Level 2.2, Total Bilirubin 0.3, Aspartate Amino Transf (AST/SGOT) 38, Alanine Aminotransferase (ALT/SGPT) 53, Alkaline Phosphatase 36, Total Protein 5.7, Albumin 3.4, Phosphorus Level 3.1 07/21/22 10:55: Glucometer 184 Discharge Home Medications: Active Scripts Active Glimepiride 2 Mg Tablet 1 Mg PO HS 7 Days Amiodarone HCl 200 Mg Tablet 400 Mg PO BID Eliquis (Apixaban) 2.5 Mg Tablet 2.5 Mg PO BID Colace (Docusate Sodium) 100 Mg Capsule 100 Mg PO BID Reported Nitroglycerin 0.4 Mg Tab.subl 0.4 Mg SL PRN Rosuvastatin Calcium 10 Mg Tablet 10 Mg PO DAILY Carvedilol 12.5 Mg Tablet 12.5 Mg PO BID Ferrous Sulfate 325 Mg Tablet 325 Mg PO Q48H Systane Balance (Propylene Glycol) 10 Ml Drops 1 Drop OU Q12H PRN Spironolactone 25 Mg Tablet 25 Mg PO DAILY Vitamin D3 (Cholecalciferol (Vitamin D3)) 50 Mcg Capsule 50 Mcg PO DAILY Omeprazole 20 Mg Capsule.dr 20 Mg PO DAILY Enalapril Maleate 2.5 Mg Tablet 2.5 Mg PO DAILY Furosemide 40 Mg Tablet 40 Mg PO DAILY Digoxin 125 Mcg Tablet 125 Mcg PO DAILY Aspirin EC (Aspirin) 81 Mg Tablet.dr 81 Mg PO DAILY Methimazole 5 Mg Tablet 5 Mg PO DAILY Instructions to patient/family Please see electronic discharge instructions given to patient. GRISELDA SANTOS DO July 21, 2022 11:40
--- NOTE | 2022-07-21 12:42 | Consultation-Cardiology ---
HPI-Cardiology Cardiology Consultation: Date of Consultation 07/21/22 Time Seen by a Provider: 11:30 Date of Admission Attending Physician Josie Santos DO Admitting Physician Admitting Physician: Josie Santos DO Attending Physician: Josie Santos DO Consulting Physician BIANCA DAVIS MD, MA, FACP, FACC, FSCAI, CCDS Physician requesting consult: Dr Santos Primary french teacher: Dr Rosenberg HPI: Chief Complaint: Reason for Card consult: Shock from ICD 82 yo man, resident of a local [place], admitted to Dr Santos yesterday after a shock from his ICD. States had gone to urinate, came back to lie on the bed, suddenly had a shock from the device that did not cause much pain. This shock was not preceded or succeeded by any symptoms such as chest pain or palp or syncope or near-syncope. He states he has been feeling well. Feels well, too, at the time of this exam. Review of Systems-Cardiology Review of Systems Constitutional: malaise, tiredness; No weight loss, No weight gain Eyes: No vision change Ears/Nose/Throat: No ear discharge, No nasal drainage Respiratory: As described under HPI Cardiovascular: As described under HPI Gastrointestinal: No diarrhea, No nausea, No vomiting Genitourinary: No dysuria, No hematuria, No urine frequency changes Musculoskeletal: No back pain, No joint pain Skin: No rash, No ulcerations Psychiatric/Neurological: focal weakness (chronic mild weakness on the R side and mild impairment of speech); No seizure, No syncope Hematologic: No bleeding abnormalities [id number] Hx Patient Social History Marrital Status: single Employed/Student: retired Smoking Status: Former Smoker Have you traveled recently?: No Alcohol Use?: No Pt feels they are or have been: No Immunizations Up To Date Tetanus Booster (TDap): Unknown Date of Pneumonia Vaccine: Mar 19, 2019 Date of Influenza Vaccine: Dec 16, 2020 Past Medical History PMH As described under Assessment. Family Medical History Family Medical History: No reported fam h/o early CAD or SCD Family History: Patient reports no known family medical history. Allergies and Home Medications Allergies Coded Allergies: No Known Drug Allergies (Verified , 05/21/19) Patient Home Medication List Home Medication List Reviewed: Yes Amiodarone HCl (Amiodarone HCl) 200 Mg Tablet, 400 MG PO BID Prescribed by: JOSIE SANTOS on 07/21/22 1136 Apixaban (Eliquis) 2.5 Mg Tablet, 2.5 MG PO BID Prescribed by: JOSIE SANTOS on 07/21/22 1136 Aspirin (Aspirin EC) 81 Mg Tablet.dr, 81 MG PO DAILY, (Reported) Entered as Reported by: DINA HENNING on 04/13/15 1028 Carvedilol (Carvedilol) 12.5 Mg Tablet, 12.5 MG PO BID, (Reported) Entered as Reported by: RODNEY CONWAY on 05/08/21 1043 Cholecalciferol (Vitamin D3) (Vitamin D3) 50 Mcg Capsule, 50 MCG PO DAILY, (Reported) Entered as Reported by: SKYLA JUAREZ on 05/19/19 1316 Digoxin (Digoxin) 125 Mcg Tablet, 125 MCG PO DAILY, (Reported) Entered as Reported by: VINEET LABOY on 03/27/18 1342 Docusate Sodium (Colace) 100 Mg Capsule, 100 MG PO BID Prescribed by: LYN JACQUES on 06/01/19 1114 Enalapril Maleate (Enalapril Maleate) 2.5 Mg Tablet, 2.5 MG PO DAILY, (Reported) Entered as Reported by: VINEET LABOY on 03/27/18 1342 Ferrous Sulfate (Ferrous Sulfate) 325 Mg Tablet, 325 MG PO Q48H, (Reported) Entered as Reported by: GARCIA HEART on 05/26/19 1142 Furosemide (Furosemide) 40 Mg Tablet, 40 MG PO DAILY, (Reported) Entered as Reported by: VINEET LABOY on 03/27/18 1342 Glimepiride (Glimepiride) 2 Mg Tablet, 1 MG PO HS Prescribed by: JOSIE SANTOS on 07/21/22 1138 Last Action: New Order Methimazole (Methimazole) 5 Mg Tablet, 5 MG PO DAILY, (Reported) Entered as Reported by: DINA HENNING on 04/13/15 1028 Nitroglycerin (Nitroglycerin) 0.4 Mg Tab.subl, 0.4 MG SL PRN, (Reported) Entered as Reported by: RODNEY CONWAY on 05/08/21 1043 Omeprazole (Omeprazole) 20 Mg Capsule.dr, 20 MG PO DAILY, (Reported) Entered as Reported by: VINEET LABOY on 03/27/18 1342 Propylene Glycol (Systane Balance) 10 Ml Drops, 1 DROP OU Q12H PRN for DRY EYES, (Reported) Entered as Reported by: SKYLA JUAREZ on 05/19/19 1316 Rosuvastatin Calcium (Rosuvastatin Calcium) 10 Mg Tablet, 10 MG PO DAILY, (Reported) Entered as Reported by: RODNEY CONWAY on 05/08/21 1043 Spironolactone (Spironolactone) 25 Mg Tablet, 25 MG PO DAILY, (Reported) Entered as Reported by: SKYLA JUAREZ on 05/19/19 1316 Discontinued Medications Amiodarone HCl (Amiodarone HCl) 200 Mg Tablet, 200 MG PO DAILY, (Reported) Entered as Reported by: SKYLA JUAREZ on 05/19/19 1316 Apixaban (Eliquis) 5 Mg Tablet, 5 MG PO BID, (Reported) Entered as Reported by: GARCIA HEART on 05/26/19 1142 Cefdinir (Cefdinir) 300 Mg Capsule, 300 MG PO BID Prescribed by: ERIC LEE on 05/18/21 0628 Last Action: Discontinued Physical Exam-Cardiology Physical Exam Vital Signs/I&O 07/21/22 07/21/22 07/21/22 07/21/22 01:00 01:00 02:00 03:00 Pulse 60 60 60 66 Resp 14 15 14 B/P (MAP) 100/47 (64) 104/46 (65) 101/49 (66) Pulse Ox 94 92 95 O2 Delivery Room Air Room Air Room Air 07/21/22 07/21/22 07/21/22 07/21/22 04:00 04:00 04:00 05:00 Temp 36.1 Pulse 60 60 Resp 20 16 B/P (MAP) 103/57 (72) 92/47 (62) Pulse Ox 94 93 92 O2 Delivery Room Air Room Air Room Air 07/21/22 07/21/22 07/21/22 07/21/22 06:00 07:00 07:00 08:00 Pulse 60 60 59 64 Resp 18 9 12 B/P (MAP) 87/45 (59) 107/49 (74) 131/50 (69) Pulse Ox 96 92 O2 Delivery Room Air Room Air Room Air 07/21/22 07/21/22 07/21/22 07/21/22 08:10 09:00 10:00 11:00 Pulse 60 64 60 Resp 12 16 13 B/P (MAP) 97/41 (64) 131/50 (84) 116/46 (78) Pulse Ox 98 O2 Delivery Room Air Room Air Room Air Room Air 07/21/22 11:57 Temp 36.3 07/20/22 23:59 Intake Total 850 ml Output Total 475 ml Balance 375 ml Capillary Refill : Less Than 3 Seconds Constitutional: AAO x 3, well-developed, well-nourished HEENT: EOMI, hearing is well preserved; No xanthelasmas are seen Neck: carotid pulses are 2 + bilaterally, with good upstrokes Respiratory: No accessory muscle use; chest expansion is symmetric, chest is bilaterally symmetric, other (good, bilateral air entry) Cardiovascular: regular rate-rhythm, S1 and S2, systolic murmur (soft RENATO at card base) Gastrointestinal: No tender; soft; No guarding, No rebound; audible bowel sounds Extremities: No clubbing, No cyanosis, No significant edema Neurologic/Psychiatric: oriented x 3, other (moves all limbs; chronic mild motor impairment on the R and mild speech impairment) Skin: No rash on exposed areas, No ulcerations on exposed areas Data Review Labs Laboratory Tests 07/20/22 15:58: Glucometer 196H 07/20/22 20:28: Glucometer 152H 07/21/22 03:59: White Blood Count 9.5, Red Blood Count 4.30, Hemoglobin 12.7L, Hematocrit 38L, Mean Corpuscular Volume 89, Mean Corpuscular Hemoglobin 30, Mean Corpuscular Hemoglobin Concent 33, Red Cell Distribution Width 14.3, Platelet Count 207, Mean Platelet Volume 11.3, Immature Granulocyte % (Auto) 1, Neutrophils (%) (Auto) 69, Lymphocytes (%) (Auto) 15, Monocytes (%) (Auto) 11, Eosinophils (%) (Auto) 5, Basophils (%) (Auto) 1, Neutrophils # (Auto) 6.5, Lymphocytes # (Auto) 1.4, Monocytes # (Auto) 1.0, Eosinophils # (Auto) 0.5H, Basophils # (Auto) 0.1, Immature Granulocyte # (Auto) 0.1, Sodium Level 139, Potassium Level 4.1, Chloride Level 106, Carbon Dioxide Level 22, Anion Gap 11, Blood Urea Nitrogen 28H, Creatinine 1.36H, Estimat Glomerular Filtration Rate 53, BUN/Creatinine Ratio 21, Glucose Level 107H, Calcium Level 8.8, Corrected Calcium 9.3, Phosphorus Level 3.1, Magnesium Level 2.2, Total Bilirubin 0.3, Aspartate Amino Transf (AST/SGOT) 38H, Alanine Aminotransferase (ALT/SGPT) 53, Alkaline Phosphatase 36L, Total Protein 5.7L, Albumin 3.4 07/21/22 10:55: Glucometer 184H Microbiology 07/20/22 MRSA Screen - Final, Complete MRSA not isolated Laboratory Tests 07/20/22 10:40 07/21/22 03:59 A/P-Cardiology Assessment/Admission Diagnosis S/p ICD discharge on 07-20-22 - ICD interrogation indicated appropriately and successfully treated VF on 07-20-22 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 - CTA of head and neck June 2018 revealed moderate right ICA stenosis, otherwise nonobstructive disease to the internal carotid. Coronary artery disease - Cardiac catheterization done on April 13, 2015 revealed total occlusion of large dominant right coronary artery with collateral filling the distal right from the left side. Total occlusion of the mid proper circumflex artery, small artery receiving collateral from left anterior descending. 40-50 percent mid LAD stenosis. Nonobstructive disease. EF 30 percent. He was referred to [facility] had 4 stents overlapping in the right coronary artery done in April 2015. Returned in October 2015 and had intervention to the posterior lateral branch, - Cardiac catheterization done at in August 2017, it was reported in the note from Gladys Deutsch that he had patent stents in the right coronary artery and occluded obtuse marginal branch. - Stress test done April 2021 showing baseline right bundle branch block persisted during test. Fixed defect involving the whole inferior wall inferoapical segment and inferolateral wall. Dilated left ventricle with diffuse left ventricular hypokinesia more pronounced at the inferior wall and inferolateral wall, ejection fraction 34% - Repeat stress test done June 2022 showing fixed defect involving the whole inferior wall and inferolateral wall, mild reversible ischemia involving the lateral wall. Normal left ventricular size with hypokinesia in the inferior wall and inferolateral wall, ejection fraction 33%. Overall stress test has not changed significantly compared to the previous study of 2021. Chronic systolic CHF due to ischemic cardiomyopathy and LVEF 30-35% - Most recent 2D echo done May 2022 showing mild concentric hypertrophy, EF 50-55%, grade 1 diastolic dysfunction, PA 25-30mmHg. - Status post ICD implanted by Dr. Sanjay Raphael, [employer], status post syncope with sudden cardiac and ventricular tachycardia, managed and followed at started on amiodarone and had a tapering dose. Interrogation of his defibrillator was on July 10, 2022: no arrhythmia was detected. Paroxysmal atrial fibrillation status post cardioversion - currently on Eliquis. Patient is on Amiodarone Carotid artery stenosis status post left CEA in 2011 - CTA head and neck done June 2018 revealed right moderate ICA stenosis. 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 Discussion and Recomendations * I reviewed the interrogation report of the device. Appropriately treated VF is seen * I recommended cardiac cath to Mr Payne to eval for an ischemic cause of VF. He understands but refuses * I discussed his case with Dr Santos * We will increase amio to 400 bid * He will return to the [place]. No driving or operating machinery or climbing ladder * Outpt f/u advised with Dr Rosenberg, his french teacher BIANCA DAVIS MD FACP FAC CCDS July 21, 2022 12:42
== END 2022-07-21 11:34 | disposition other institution, planned readmission (95) ==
LOC: EDUNIT# 10:19 → ER 10:22 → ICU 13:03 → UNDOADMOB 13:03 → ICU 13:20 → UNDODISOB 07-21 11:34
PROVIDERS: ADMIT Internal Medicine; ATTEND Internal Medicine
DX: T82.897A Other specified complication of cardiac prosthetic devices, implants and grafts, initial encounter (principal); I25.10 Atherosclerotic heart disease of native coronary artery without angina pectoris; I63.9 Cerebral infarction, unspecified; I11.0 Hypertensive heart disease with heart failure; I50.22 Chronic systolic (congestive) heart failure; I48.0 Paroxysmal atrial fibrillation; I65.22 Occlusion and stenosis of left carotid artery; J44.9 Chronic obstructive pulmonary disease, unspecified; E78.5 Hyperlipidemia, unspecified; E04.1 Nontoxic single thyroid nodule; E11.9 Type 2 diabetes mellitus without complications; F03.90 Unspecified dementia, unspecified severity, without behavioral disturbance, psychotic disturbance, mood disturbance, and anxiety; Z87.891 Personal history of nicotine dependence; Z79.899 Other long term (current) drug therapy; Z79.84 Long term (current) use of oral hypoglycemic drugs
CPT/HCPCS: 71045 ×2; 80053 ×2; 82947 ×2; 83735 ×2; 84100; 84484; 85025 ×2; 85610; 85730; 87081; 93005 ×2; 93041; 96361; 99284; G0378; 36415

== ENCOUNTER 2022-08-15 10:40 | Day surgery (SDC) | payer MEDICARE, MEDICAID ==
[~2022-08-15] VITALS: Ht 172.7 cm; Wt 79.0 kg
[2022-08-15] VITALS (11 sets, daily range): BP systolic 109–155; BP diastolic 50–86
[~2022-08-15 10:40] MED LIST changes: +APIX2.5T PO
[2022-08-15] MEDS ORDERED: LIDOCAINE 1% INJ 20 ML VIAL ONE (11:11)
[2022-08-15] MEDS ORDERED: NS IV 1000 ML 1,000 ML ONE (11:12)
[2022-08-15] MEDS ORDERED: HEParin (CATH LAB) 2,000 ML IV ONE (11:12)
[2022-08-15] MEDS ORDERED: NS IV 1000 ML 1,000 ML IV SCH ×2 (11:15→14:45)
[2022-08-15 11:46] LABS: HEMATOCRIT 43 % (40-54); HEMOGLOBIN 14.4 g/dL (13.3-17.7); MEAN CORPUSCULAR HEMOGLOBIN 29 pg (25-34); MEAN CORPUSCULAR HGB CONC 33 g/dL (32-36); MEAN CORPUSCULAR VOLUME 89 fL (80-99); MEAN PLATELET VOLUME 10.9 fL (9.0-12.2); PLATELET COUNT 279 10^3/uL (130-400); WHITE BLOOD COUNT 12.5 10^3/uL (4.3-11.0)
[2022-08-15 12:00] LABS: PROTHROMBIN TIME PATIENT 13.3 SEC (12.2-14.7)
[2022-08-15 12:09] LABS: BILIRUBIN,TOTAL 0.5 MG/DL (0.1-1.0); CALCIUM 9.3 MG/DL (8.5-10.1); CREATININE SERUM 1.69 MG/DL (0.60-1.30); POTASSIUM 4.9 MMOL/L (3.6-5.0); TOTAL PROTEIN 7.1 GM/DL (6.4-8.2)
[2022-08-15] MEDS ORDERED: CETI10TA49 PO (12:18)
[2022-08-15] MEDS ORDERED: AMIO200T65 PO (12:18)
[2022-08-15] MEDS ORDERED: BISM262O27 PO (12:18)
[2022-08-15] MEDS ORDERED: APIX2.5T PO (12:18)
[2022-08-15] MEDS ORDERED: DOCU-143 PO (12:18)
[2022-08-15] MEDS ORDERED: GLIM2TAB4 PO ×2 (12:18)
[2022-08-15] MEDS ORDERED: GLMP1T PO (12:18)
[2022-08-15] MEDS ORDERED: ACET-2267 PO (12:18)
--- NOTE | 2022-08-15 13:47 | Cardiac Procedure Note-CS/ASA ---
Pre-Procedure Note Pre-Op Procedure Note Date of Available H&P: August 07, 2022 Date H&P Reviewed: August 15, 2022 Time H&P Reviewed: 13:47 History & Physical: H&P Reviewed, Patient Examed, No changes noted Pre-Operative Diagnosis: CAD Moderate Sedation PreProcedure Time 13:47 ASA Score 3 Airway Lungs Heart ASA score ASA 1: a normal healthy patient ASA 2: a patient with a mild systemic disease (mid diabetes, controlled hypertension, obesity ASA 3: a patient with a severe systemic disease that limits activity (angina, COPD, prior Myocardial infarction) ASA 4: a patient with an incapacitating disease that is a constant threat to life (CHF, renal failure) ASA 5: a moribund patient not expected to survive 24 hrs. (ruptured aneurysm) ASA 6: a declared brain- patient whose organs are being harvested. For emergent operations, add the letter E after the classification Mallampati Classification Grade 3 Sedation Plan Analgesia, Amnesia, Plan communicated to team members, Discussed options with patient/fam, Discussed risks with patient/fam The patient is an appropriate candidate to undergo the planned procedure, sedation, and anesthesia. The patient immediately re-assessed prior to indication. TAYLOR BROWN MD August 15, 2022 13:47
[2022-08-15] MEDS ORDERED: fentaNYL INJ 100 MCG/2 ML AMP ONE (14:02)
[2022-08-15] MEDS ORDERED: MIDAZOLAM 5 MG/5 ML (VERSED) VIAL ONE (14:02)
--- NOTE | 2022-08-15 14:29 | Diagnostic Imaging Report ---
INDICATION: Chest pain, precatheterization Frontal chest obtained at 1151 a.m. compared to 07/21/2022. The heart is mildly enlarged. Pacemaker is unchanged. There is no focal infiltrate or pneumothorax or pleural fluid IMPRESSION: Mild cardiomegaly with pacemaker device in place. No focal infiltrate or pneumothorax or pleural fluid. Dictated by: Dictated on workstation # [id number]
--- NOTE | 2022-08-15 14:39 | Discharge Inst-Post CATH ---
Discharge Inst-CATH/EP Problems Reviewed?: Yes Post Cardiac Cath/EP D/C Inst Follow Up/Plan Appointment with Dr. Rosenberg's office in 2 to 4 weeks <b>CARDIAC CATH/EP PROCEDURE DISCHARGE INSTRUCTIONS</b> ACTIVITY * Go Home directly and rest. * Limit activity of the leg (or wrist if it was used) for 7 days including aer obics, swimming, jogging, bicycling, etc. * Restrict stair-climbing for 7 days if possible, if not, climb up with your non-cath leg, then bring together on the same step. * Avoid lifting, pushing, pulling or excessive movement of the affected extremi ty for 7 days. * Customary sexual activity may be resumed after 2 days-use caution not to use a position that strains or causes pain to the affected extremity. * No driving for 24 hours. * NO SMOKING. * Avoid straining for bowel movements for 7 days. * Gentle walking on level ground is allowed. * Returning to work will depend on the type of procedure and the results. Your doctor will discuss this with you. CALL YOUR DOCTOR FOR ANY OF THE FOLLOWING: *If bleeding from the puncture site occurs- Apply gentle pressure to site with clean cloth and call your doctor or EMS. * If a knot or lump forms under the skin, increases in size, or causes pain. * If bruising appears to be worsening or moving further down your leg instead of disappearing. * Temperature above 101 F. CARE OF YOUR GROIN INCISION; * Bruising or purple discoloration of the skin near the puncture site is common. * You may shower only, no bathtub bathing for 5 days. Be careful to avoid slipping as your leg may feel stiff. * If a closure device was used on your femoral artery, please see the attached guide regarding care of the device and your leg. * Leave dressing on FOR 24 hours. CARE OF YOUR WRIST INCISION; * Bruising or purple discoloration of the skin near the puncture site is common. * You may shower. * DO NOT submerge wrist. * Leave dressing on FOR 24 hours. TAYLOR ROSENBERG MD August 15, 2022 14:39
--- NOTE | 2022-08-15 14:42 | Cardiac Cath Report ---
Cardiac Cath Report Physician (s)/Space Studies Faculty Member (s) Physician TAYLOR BROWN MD Pre-Procedure Diagnosis Pre-Procedure Diagnosis: CAD Post-Procedure Note Procedure Start Date: August 15, 2022 Name of Procedure: Left heart catheterization Findings/Procedure Note PROCEDURE NOTE: 82 years old gentleman with extensive history of coronary artery disease multiple intervention, had an abnormal stress test, scheduled for cardiac catheterization possible PTCA. After explaining the procedure to the patient, all pros and cons were explained, all questions were answered. The patient signed the consent and then he was placed in the cardiac catheterization laboratory. Groin was prepped in SL fashion local anesthesia was used. Sheath placed in the right femoral artery. Nalini' right and left catheter were used to access the coronary system. Pigt ail was used to access the left ventricular cavity. Left ventriculogram was not done, pressure was measured At the end of the procedure the sheath was removed. Closure device was deployed FINDINGS: Hemodynamics LV 104/15, end-diastolic pressure of 15 Aorta 105/47 mean of 68 ANATOMY: Left Main is free of obstructive disease Left Anterior Descending is tortuous with mild disease nonobstructive disease Left Circumflex is occluded at the midportion Right Coronary Artery is large dominant artery has multiple stents extending from the ostium till the bifurcation, patent stent with no obstructive disease LV Gram was not done, pressure was measured CONCLUSION: Multiple stents in the dominant right coronary artery extending from the ostium to the bifurcation distally with patent stents with no obstructive disease Occluded obtuse marginal/mid circumflex artery, chronic with no collaterals Mild disease in the LAD Normal left ventricular end-diastolic pressure DISCUSSION AND RECOMMENDATION: Continue with medical therapy. No intervention is warranted Anesthesia Type: Conscious Sedation Estimated blood loss (mL): 15 ml Contrast Amount: 25 ml Total Radiation Dose: 440 mGy Post-Procedure Diagnosis Post-operative diagnosis: Chest pain Coronary artery disease Hypertension Hyperlipidemia TAYLOR BROWN MD August 15, 2022 14:42
[2022-08-15] MEDS ORDERED: PATIENT MAY USE OWN MEDS, ALL PO SCH (14:45)
== END 2022-08-15 19:00 ==
LOC: CATH 10:40 → SDC 14:50 → CATH 19:00
PROVIDERS: ATTEND Internal Medicine Cardiovascular Disease
DX: I25.10 Atherosclerotic heart disease of native coronary artery without angina pectoris (principal); E66.9 Obesity, unspecified; I11.0 Hypertensive heart disease with heart failure; I50.32 Chronic diastolic (congestive) heart failure; I48.0 Paroxysmal atrial fibrillation; I65.23 Occlusion and stenosis of bilateral carotid arteries; J44.9 Chronic obstructive pulmonary disease, unspecified; E04.1 Nontoxic single thyroid nodule; E11.9 Type 2 diabetes mellitus without complications; I34.0 Nonrheumatic mitral (valve) insufficiency; E78.2 Mixed hyperlipidemia; Z68.26 Body mass index [BMI] 26.0-26.9, adult; Z87.891 Personal history of nicotine dependence; Z79.01 Long term (current) use of anticoagulants; Z79.82 Long term (current) use of aspirin; Z79.899 Other long term (current) drug therapy
CPT/HCPCS: 71045; 80053; 80061; 85027; 85610; 85730; 87081; 93005; 93458; C1760; C1894; 36415

== ENCOUNTER 2022-09-23 02:42 | Inpatient (IN) | payer MEDICARE, MEDICAID ==
[2022-09-23] VITALS (15 sets, daily range): BP systolic 82–133; BP diastolic 36–55
[~2022-09-23] VITALS: Ht 167 cm; Wt 81.1 kg
[~2022-09-23 02:42] MED LIST changes: +ACET-2267 PO; +BISM262O27 PO; +CETI10TA49 PO; +GLMP1T PO
[2022-09-23 02:53] LABS: BASOPHILS % (AUTO) 0 % (0-10); EOSINOPHILS # (AUTO) 0.3 10^3/uL (0.0-0.3); EOSINOPHILS % (AUTO) 2 % (0-10); HEMATOCRIT 40 % (40-54); HEMOGLOBIN 13.4 g/dL (13.3-17.7); LYMPHOCYTES % (AUTO) 6 % (12-44); MEAN CORPUSCULAR HEMOGLOBIN 29 pg (25-34); MEAN CORPUSCULAR HGB CONC 34 g/dL (32-36); MEAN CORPUSCULAR VOLUME 86 fL (80-99); MEAN PLATELET VOLUME 10.3 fL (9.0-12.2); MONOCYTES # (AUTO) 1.9 10^3/uL (0.0-1.0); MONOCYTES % (AUTO) 11 % (0-12); NEUTROPHILS # (AUTO) 13.5 10^3/uL (1.8-7.8); NEUTROPHILS % (AUTO) 80 % (42-75); PLATELET COUNT 376 10^3/uL (130-400); WHITE BLOOD COUNT 16.8 10^3/uL (4.3-11.0)
--- NOTE | 2022-09-23 03:05 | ED General ---
General Chief Complaint: Trauma-Non Activation Stated Complaint: FALL Source of Information: Patient (VERY LIMITED HISTORIAN), EMS, Intermediate Records History of Present Illness Date Seen by Provider: Sep 23, 2022 Time Seen by Provider: 02:43 Initial Comments PT ARRIVES VIA EMS FROM [facility]. PT HAD AN "UNWITNESSED FALL" AROUND 0100 THIS MORNING SINCE THEN HE HAS NOT BEEN ACTING LIKE HIS NORMAL SELF. LAST KNOWN WELL TIME WAS 2100 TONIGHT THIS IS PT'S 3RD "FALL" THIS WEEK--PT FELL ON SATURDAY, AND HIT HIS HEAD. AND THEN HE FEEL AGAIN ON SATURDAY. IT IS UNKNOWN IF THESE EPISODES WERE WITNESSED OR NOT. HE WAS NOT SEEN BY A DR AFTER THESE EPISODES HE STATES HE HURTS ALL OVER SINCE SATURDAY WHEN HE FELL. BUT MOST PAIN IS IN BOTH HIPS HE IS ORIENTED TO SELF, PLACE, GROSSLY ORIENTED TO SITUATION, BUT CONFUSED TO DATE/TIME. HE DENIES HEAD PAIN DENIES NECK PAIN DENIES BACK PAIN DENIES NUMBNESS/TINGLING ANYWHERE NO LOSS OF BOWEL OR BLADDER CONTROL. PT DOES STATE HE HAS BEEN HAVING DIARRHEA FOR THE LAST 4 DAYS. NO NAUSEA/VOMITING. NO ABDOMINAL PAIN. NO BLOODY OR TARRY STOOLS PT IS ON ASPIRIN AND ELIQUIS. PT HAS HAD A PRIOR CVA IN 2019 AND HAS HAD SOME RESIDUAL SPEECH DIFFICULTY AND RIGHT SIDE WEAKNESS, BUT REPORTEDLY HIS SPEECH IS WORSE THAN NORMAL SINCE HE "FELL" TONIGHT. PT IS REPORTEDLY NORMALLY VERY INDEPENDENT WITH ADL'S. BUT SINCE THIS "FALL" TONIGHT, HE HAS HAD DIFFICULTY WALKING --EMS REPORT HE WAS ABLE TO STAND AND TRANSFER WITH MODERATE ASSIST. PT IS DIABETIC, GLUCOSE 146 FOR EMS. PT HAS A PACEMAKER IN PLACE. PT IS NOTED TO HAVE SOME EXPRESSIVE APHASIA, SEEMS SOMEWHAT CONFUSED, SPEECH IS NON-SENSICAL AT TIMES AND SEEMS TO BE HAVING SOME DIFFICULTY WITH WORD FINDING, AND SPEECH IS SOMEWHAT SLURRED/THICK-TONGUED. PCP: DR. SILVESTRE Allergies and Home Medications Allergies Coded Allergies: No Known Drug Allergies (Verified , 05/21/19) Patient Home Medication List Home Medication List Reviewed: Yes Acetaminophen (Tylenol Extra Strength) 500 Mg Tablet, 1,000 MG PO Q6H PRN for PAIN-MILD (1-4), (Reported) Entered as Reported by: NAE BRIGGS on 08/15/22 1218 Amiodarone HCl (Amiodarone HCl) 200 Mg Tablet, 400 MG PO BID, (Reported) Entered as Reported by: NAE BRIGGS on 08/15/22 1218 Apixaban (Eliquis) 2.5 Mg Tablet, 2.5 MG PO BID, (Reported) Entered as Reported by: NAE BRIGGS on 08/15/22 1218 Aspirin (Aspirin EC) 81 Mg Tablet.dr, 81 MG PO HS, (Reported) Entered as Reported by: DINA HENNING on 04/13/15 1028 Bismuth Subsalicylate (Pepto-Bismol) 262 Mg/15 Ml Oral.susp, 30 ML PO Q2H PRN for NAUSEA/VOMITING, (Reported) Entered as Reported by: NAE BRIGGS on 08/15/22 1218 Carvedilol (Carvedilol) 12.5 Mg Tablet, 12.5 MG PO BID, (Reported) Entered as Reported by: RODNEY CONWAY on 05/08/21 1043 Cetirizine HCl (Zyrtec) 10 Mg Tablet, 10 MG PO DAILY, (Reported) Entered as Reported by: NAE BRIGGS on 08/15/22 1218 Cholecalciferol (Vitamin D3) (Vitamin D3) 50 Mcg Capsule, 50 MCG PO DAILY, (Reported) Entered as Reported by: SKYLA JUAREZ on 05/19/19 1316 Digoxin (Digoxin) 125 Mcg Tablet, 125 MCG PO DAILY, (Reported) Entered as Reported by: VINEET LABOY on 03/27/18 1342 Docusate Sodium (Colace) 100 Mg Capsule, 100 MG PO BID, (Reported) Entered as Reported by: NAE BRIGGS on 08/15/22 1218 Enalapril Maleate (Enalapril Maleate) 2.5 Mg Tablet, 2.5 MG PO DAILY, (Reported) Entered as Reported by: VINEET LABOY on 03/27/18 1342 Ferrous Sulfate (Ferrous Sulfate) 325 Mg Tablet, 325 MG PO Q48H, (Reported) Entered as Reported by: GARCIA HEART on 05/26/19 1142 Furosemide (Furosemide) 40 Mg Tablet, 40 MG PO DAILY, (Reported) Entered as Reported by: VINEET LABOY on 03/27/18 1342 Glimepiride (Amaryl) 1 Mg Tab, 1 MG PO DAILY, (Reported) Entered as Reported by: NAE BRIGGS on 08/15/22 1218 Glimepiride (Glimepiride) 2 Mg Tablet, 2 MG PO DAILY, (Reported) Entered as Reported by: NAE BRIGGS on 08/15/22 1218 Glimepiride (Glimepiride) 2 Mg Tablet, 2 MG PO HS, (Reported) Entered as Reported by: NAE BRIGGS on 08/15/22 1218 Methimazole (Methimazole) 5 Mg Tablet, 5 MG PO HS, (Reported) Entered as Reported by: DINA HENNING on 04/13/15 1028 Omeprazole (Omeprazole) 20 Mg Capsule.dr, 20 MG PO DAILY, (Reported) Entered as Reported by: VINEET LABOY on 03/27/18 1342 Rosuvastatin Calcium (Rosuvastatin Calcium) 10 Mg Tablet, 10 MG PO DAILY, (Reported) Entered as Reported by: RODNEY CONWAY on 05/08/21 1043 Spironolactone (Spironolactone) 25 Mg Tablet, 25 MG PO DAILY, (Reported) Entered as Reported by: SKYLA JUAREZ on 05/19/19 1316 Review of Systems Review of Systems Constitutional: no symptoms reported; No dizziness EENTM: no symptoms reported Respiratory: no symptoms reported; No short of breath Cardiovascular: no symptoms reported; No chest pain Gastrointestinal: see HPI; No abdominal pain; diarrhea; No nausea, No vomiting Genitourinary: no symptoms reported Musculoskeletal: see HPI Skin: no symptoms reported Psychiatric/Neurological: See HPI; Denies Headache, Denies Numbness, Denies Paresthesia Hematologic/Lymphatic: No Symptoms Reported Immunological/Allergic: no symptoms reported Past Wodbhfe-Hedood-Olsyrz Hx Immunizations Up To Date Tetanus Booster (TDap): Unknown First/Initial COVID19 Vaccinat: "3 shots" Second COVID19 Vaccination Yamil: MAY 2020 Third COVID19 Vaccination Date: NO Seasonal Allergies Seasonal Allergies: No Past Medical History Surgery/Hospitalization HX: HEART FAILURE, HTN, ANEMIA, CEREBRAL INFARCTION WITH APHASIA, HYPERCHOLESTEROLEMIA, NIDDM, GERD Surgeries: Yes (SEE BELOW) Abdominal, Bowel Surgery, Cardiac, Coronary Stent, Defibrillator Respiratory: No Cardiac: Yes (DEFIBRILLATOR; CARDIAC CATHS-STENTS; V-TACH) Atrial Fibrillation, Cardiomyopathy, Chronic Edema/Swelling, Coronary Artery Disease, High Cholesterol, Hypertension, Irregular Heartbeat Neurological: Yes (CVA WITH RIGHT SIDE WEAKNESS AND SOME APHASIA 03/2018) Stroke Reproductive Disorders: No Genitourinary: Yes (INCONTINENCE) Renal Failure Gastrointestinal: Yes (COLON CANCER DX 05/2019) Gastroesophageal Reflux, Polyps Musculoskeletal: Yes (Rt hemiparesis since CVA 03/2018) Arthritis Endocrine: Yes Diabetes, Non-Insulin dep HEENT: Yes (DENTURES, GLASSES; STATES HE HAS CATARACTS, BUT HAS NOT HAD SURGERY) Cataract Loss of Vision: Denies Hearing Impairment: Denies Cancer: Yes (R COLON RESECTION 05/2019) Skin, Melanoma, Colon Did You Recieve Any Treatments: Yes What Type of Treatment Did You: Surgical Intervention Psychosocial: No Integumentary: No Blood Disorders: Yes (ANEMIA) Adverse Reaction/Blood Tranf: No Family Medical History Patient reports no known family medical history. Diabetes PSH: -SKIN CANCER REMOVED WITH SKIN GRAFT -CARDIAC CATH 2015--EXTENSIVE DISEASE, NOT AMENABLE TO INTERVENTION. -DEFIBRILLATOR -COLONOSCOPY 05/2019 -RIGHT COLON RESECTION FOR CANCER 05/28/19 -LEFT NECK SURGERY -CARDIAC STENTS CARDIAC CATH 08/15/[address] BROWN: CONCLUSION: Multiple stents in the dominant right coronary artery extending from the ostium to the bifurcation distally with patent stents with no obstructive disease Occluded obtuse marginal/mid circumflex artery, chronic with no collaterals Mild disease in the LAD Normal left ventricular end-diastolic pressure DISCUSSION AND RECOMMENDATION: Continue with medical therapy. No intervention is warranted Physical Exam Vital Signs Vital Signs - First Documented 09/23/22 04:32 O2 Flow Rate 2.00 Capillary Refill : Height, Weight, BMI Height: 5'7.00" Weight: 190lbs. 2.0oz. [id number]; 26.48 BMI Method:Estimated General Appearance: No Apparent Distress, WD/WN HEENT: PERRL/EOMI, TMs Normal, Pharynx Normal, Other (EDENTULOUS. SLIGHT RIGHT SIDE FACIAL DROOP. NO EXTERNAL EVIDENCE OF TRAUMA TO HEAD OR FACE. ) Neck: Normal Inspection, Non Tender Respiratory: Normal Breath Sounds, No Accessory Muscle Use, No Respiratory Distress Cardiovascular: Regular Rate, Rhythm, No Edema, No JVD, No Murmur, Normal Peripheral Pulses Gastrointestinal: Non Tender, Soft Back: Normal Inspection, No CVA Tenderness, No Vertebral Tenderness Extremity: Normal Capillary Refill, No Calf Tenderness, No Pedal Edema, Other (MILD BILATERAL HIP TENDERNESS. ) Neurologic/Psychiatric: Alert, Normal Mood/Affect, Aphasia, Facial Droop, Other (NIH 5; MILD RIGHT FACIAL DROOP. BILATERAL ARM AND LEG STRENGTH IS EQUAL, BUT HAS LIMB ATAXIA IN BOTH UPPER ARMS--UNABLE TO DO [id number] WITH EITHER ARM. MILD APHASIA AND MILD DYSARTHRIA. PT DOES HAVE DIFFICULY FOLLOWING SOME SIMPLE COMMANDS. ) Skin: Normal Color, Warm/Dry Progress/Results/Core Measures Suspected Sepsis SIRS Temperature: Pulse: Respiratory Rate: Laboratory Tests 09/23/22 02:48: White Blood Count 16.8H Blood Pressure / Mean: Laboratory Tests 09/23/22 02:48: Creatinine 1.67H, INR Comment 1.2, Platelet Count 376, Total Bilirubin 0.6 Results/Orders Lab Results Laboratory Tests Test 09/23/22 02:48 Range/Units White Blood Count 16.8 H 4.3-11.0 10^3/uL Red Blood Count 4.64 4.30-5.52 10^6/uL Hemoglobin 13.4 13.3-17.7 g/dL Hematocrit 40 40-54 % Mean Corpuscular Volume 86 80-99 fL Mean Corpuscular Hemoglobin 29 25-34 pg Mean Corpuscular Hemoglobin Concent 34 32-36 g/dL Red Cell Distribution Width 15.6 H 10.0-14.5 % Platelet Count 376 130-400 10^3/uL Mean Platelet Volume 10.3 9.0-12.2 fL Immature Granulocyte % (Auto) 1 % Neutrophils (%) (Auto) 80 H 42-75 % Lymphocytes (%) (Auto) 6 L 12-44 % Monocytes (%) (Auto) 11 0-12 % Eosinophils (%) (Auto) 2 0-10 % Basophils (%) (Auto) 0 0-10 % Neutrophils # (Auto) 13.5 H 1.8-7.8 10^3/uL Lymphocytes # (Auto) 1.0 1.0-4.0 10^3/uL Monocytes # (Auto) 1.9 H 0.0-1.0 10^3/uL Eosinophils # (Auto) 0.3 0.0-0.3 10^3/uL Basophils # (Auto) 0.0 0.0-0.1 10^3/uL Immature Granulocyte # (Auto) 0.2 H 0.0-0.1 10^3/uL Neutrophils % (Manual) 84 % Lymphocytes % (Manual) 6 % Monocytes % (Manual) 10 % [place] Cells SLIGHT Blood Morphology Comment Prothrombin Time 15.7 H 12.2-14.7 SEC INR Comment 1.2 0.8-1.4 Activated Partial Thromboplast Time 40 H 24-35 SEC Sodium Level 135 135-145 MMOL/L Potassium Level 4.3 3.6-5.0 MMOL/L Chloride Level 104 98-107 MMOL/L Carbon Dioxide Level 20 L 21-32 MMOL/L Anion Gap 11 5-14 MMOL/L Blood Urea Nitrogen 26 H 7-18 MG/DL Creatinine 1.67 H 0.60-1.30 MG/DL Estimat Glomerular Filtration Rate 41 BUN/Creatinine Ratio 16 Glucose Level 129 H 70-105 MG/DL Calcium Level 8.8 8.5-10.1 MG/DL Corrected Calcium 9.6 8.5-10.1 MG/DL Magnesium Level 1.9 1.6-2.4 MG/DL Total Bilirubin 0.6 0.1-1.0 MG/DL Aspartate Amino Transf (AST/SGOT) 87 H 5-34 U/L Alanine Aminotransferase (ALT/SGPT) 99 H 0-55 U/L Alkaline Phosphatase 58 40-136 U/L Total Creatine Kinase 1106 H 30-200 U/L Creatine Kinase MB 5.3 <6.6 NG/ML Myoglobin 570.8 H 10.0-92.0 NG/ML Troponin I 0.034 H <0.028 NG/ML Total Protein 6.1 L 6.4-8.2 GM/DL Albumin 3.0 L 3.2-4.5 GM/DL TSH Cha[place]in Testing 1.16 0.35-4.94 UIU/ML Digoxin Level 2.40 *H 0.80-2.00 NG/ML My Orders Orders - DANIEL MCKEON DO Ed Iv/Invasive Line Start (09/23/22 02:44) Ekg Tracing (09/23/22 02:44) O2 (09/23/22 02:44) Monitor-Rhythm Ecg Trace Only (09/23/22 02:44) Ct Head Wo-R/O Stroke (09/23/22 02:44) Chest 1 View, Ap/Pa Only (09/23/22 02:44) Pelvis 1 To 2 Views (09/23/22 02:44) Cbc With Automated Diff (09/23/22 02:44) Comprehensive Metabolic Panel (09/23/22 02:44) Creatine Kinase (09/23/22 02:44) Creatine Kinase Mb (09/23/22 02:44) Magnesium (09/23/22 02:44) Protime With Inr (09/23/22 02:44) Partial Thromboplastin Time (09/23/22 02:44) Ua Culture If Indicated (09/23/22 02:44) Myoglobin Serum (09/23/22 02:44) Troponin I [place] (09/23/22 02:44) Digoxin (09/23/22 02:48) Thyroid Analyzer (09/23/22 02:48) Manual Differential (09/23/22 02:48) Ed Iv/Invasive Line Start (09/23/22 03:22) Lactated Ringers (Lr 1000 Ml Iv Solution (09/23/22 03:30) Ed Iv/Invasive Line Start (09/23/22 04:07) Lactated Ringers (Lr 1000 Ml Iv Solution (09/23/22 04:15) Ed Iv/Invasive Line Start (09/23/22 06:47) Lactated Ringers (Lr 1000 Ml Iv Solution (09/23/22 07:00) Medications Given in ED Current Medications Medications Dose Ordered Sig/Brain Route Start Time Stop Time Status Last Admin Dose Admin Lactated Ringer's 1,000 ml @ 0 mls/hr Q0M ONCE IV 09/23/22 03:30 09/23/22 03:31 DC 09/23/22 04:45 999 MLS/HR Lactated Ringer's 1,000 ml @ 0 mls/hr Q0M ONCE IV 09/23/22 04:15 09/23/22 04:16 DC 09/23/22 05:34 999 MLS/HR Vital Signs/I&O 09/23/22 09/23/22 09/23/22 02:43 02:43 04:32 Temp 36.7 36.7 Pulse 62 62 Resp 16 16 B/P (MAP) 114/54 (74) 114/54 (74) Pulse Ox 96 96 O2 Delivery Room Air Room Air Nasal Cannula O2 Flow Rate 2.00 Capillary Refill : Progress Note : Progress Note NIH 5; IT IS UNKNOWN EXACTLY WHAT PT'S BASELINE IS POST PRIOR CVA'S. NO STROKE ACTIVATION PT HAS REPORTED FALLS AND NOT SYNCOPAL EPISODES, AND PT VOICES NO NEW NEUROLOGICAL COMPLAINTS. PT DOES SEEM TO HAVE SLIGHT IMPROVEMENT IN EXPRESSIVE APHASIA, AND SEEMS A LITTLE MORE ORIENTED, DURING ER STAY. PT STATES THAT ON SATURDAY, HE FELL IN THE TUB/SHOWER, HE HIT THE BACK OF HIS HEAD AND SCRAPED HIS RIGHT HAND--HAS STERI STRIPS OVER DORSAL ASPECT OF 5TH MCP JOINT AREA. HE STATES THAT WHEN HE FELL ON SATURDAY HE DID NOT FALL ALL THE WAY TO THE FLOOR--HE LOST HIS BALANCE BUT WAS ABLE TO SIT DOWN ON THE TOILET, INSTEAD OF FALLING TO THE FLOOR. HE STATES TODAY HE FELL FORWARD ON HIS KNEES HE STATES THAT HE WENT DOWN ON HIS KNEES, BUT DID NOT HIT HIS HEAD TONIGHT. NO DETERIORATION IN PT'S CONDITION DURING ER STAY VITALS STABLE PT VOICED NO COMPLAINTS FOR REMAINDER OF ER STAY LABS INCLUDING CBC, CMP, TROPONIN, CK/CK-MB/MYOGLOBIN, COAGULATION STUDIES, DIGOXIN ORDERED, IN ADDITION TO EKG, CXR, PELVIS XRAY AND CT HEAD PERTINENT LAB FINDINGS: -CBC WITH WBC 16.8 -CMP WITH NORMAL ELECTROLYTES, GLUCOSE 129, BUN 26, CR 1.67. AST 87, ALT 99, CK 1106, CK-MB 5.3, MYOGLOBIN 570.8 -DIGOXIN 2.4. BLOOD PRESSURES 90'S-110 SYSTOLIC. HR IN 60'S. GIVEN: -IV FLUIDS PT NOT ABLE TO VOID DURING ER STAY. NO DETERIORATION IN PT'S CONDITION DURING ER STAY. DISCUSSED TEST RESULTS, NEED FOR ADMIT AND PT IS AGREEABLE TO ADMIT. PT IS FULL CODE REVIEWED HALF-WAY PAPERS, PRIOR VISITS INCLUDING ER VISITS, ADMITS/H&P'S/CONSULTS/DISCHARGE SUMMARIES, TESTS/PROCEDURES. COMPLEX MANAGEMENT DUE TO MULTIPLE CO-MORBIDITIES. ECG Initial ECG Impression Date: Sep 23, 2022 Initial ECG Impression Time: 03:35 Initial ECG Rate: 60 Initial ECG Rhythm: Normal Sinus Initial ECG Intervals WA 157 QRS 152 QT/QTC 343/344 Initial ECG Impression: Nonspecific Changes Comment INTERPRETED BY ME Diagnostic Imaging Comments CXR--NO ACUTE PROCESS, PENDING RADIOLOGIST REVIEW PELVIS XRAY--NO ACUTE PROCESS, PENDING RADIOLOGIST REVIEW CT HEAD--PER [facility] RADIOLOGIST VIA PHONE AT [phone], AND VIA FAX AT [phone] -NO ACUTE FINDINGS -OLD LEFT MCA DISTRIBUTION INFARCT. -UNCHANGED POSTERIOR CALVARIAL LUCENCY. Reviewed: Reviewed by Me, Discussed w/Radiologist Departure Communication (Admissions) 7--SPOKE WITH DR. HOGUE, HOSPITALIST, ACCEPTS PT FOR ADMIT. WILL BE HOLDING PT / BOARDING PT IN ER UNTIL AFTER 0700, DUE TO STAFFING. 06--SPOKE WITH DR. SANTOS.HOSPITALIST. HE IS ACTUALLY HER PATIENT NOW. SHE ACCEPTS PT FOR ADMIT. SHE WILL DO ADMIT ORDERS Impression Primary Impression: Multiple falls Additional Impressions: Altered mental status Generalized weakness Dehydration Acute on chronic renal insufficiency HX OF PRIOR CVA WITH RIGHT SIDE WEAKNESS AND EXPRESSIVE APHASIA Diarrhea Elevated digoxin level Recent head injury ASPIRIN AND ELIQUIS THERAPY Leukocytosis NIDDM Hx of congestive heart failure HX OF CAD WITH STENTS ICD (implantable cardioverter-defibrillator) in place Disposition: ADMITTED INPATIENT Condition: Stable Admissions Decision to Admit Reason: Admit from ER (General) Decision to Admit/Date: Sep 23, 2022 Time/Decision to Admit Time: 04:00 Departure-Patient Inst. Referrals: GRISELDA SANTOS DO (PCP/Family) Primary Care Physician DANIEL MCKEON DO Sep 23, 2022 03:05
[2022-09-23 03:10] LABS: INR 1.2 (0.8-1.4); PROTHROMBIN TIME PATIENT 15.7 SEC (12.2-14.7)
[2022-09-23 03:11] LABS: POTASSIUM 4.3 MMOL/L (3.6-5.0)
[2022-09-23 03:27] LABS: CALCIUM 8.8 MG/DL (8.5-10.1); LYMPHOCYTES % (MANUAL) 6 %; MONOCYTES % (MANUAL) 10 %; NEUTROPHILS % (MANUAL) 84 %
[2022-09-23 03:28] LABS: BURR CELLS SLIGHT; TOTAL PROTEIN 6.1 GM/DL (6.4-8.2)
[2022-09-23 03:30] LABS: BILIRUBIN,TOTAL 0.6 MG/DL (0.1-1.0)
[2022-09-23] MEDS ORDERED: LACTATED RINGERS 1,000 ML IV ONE ×3 (03:30→07:00)
[2022-09-23 03:32] LABS: CREATININE SERUM 1.67 MG/DL (0.60-1.30)
[2022-09-23 03:35] LABS: MAGNESIUM 1.9 MG/DL (1.6-2.4)
[2022-09-23 03:42] LABS: CREATINE KINASE MB 5.3 NG/ML (<6.6)
[2022-09-23 03:55] LABS: TSH (THYROID ANALYZER) 1.16 UIU/ML (0.35-4.94)
--- NOTE | 2022-09-23 06:30 | Diagnostic Imaging Report ---
EXAMINATION: CT head without contrast. TECHNIQUE: Multiple contiguous axial images were obtained through the brain without the use of intravenous contrast. All CT scans use one or more of the following dose optimizing techniques: automated exposure control, MA and/or KvP adjustment based on patient size and exam type or iterative reconstruction. HISTORY: Fall. Focal neurologic deficits. Concern for stroke. COMPARISON: 09/20/2019. FINDINGS: There is an area of chronic encephalomalacia within the left frontal lobe. Compared to the prior exam there is more decreased attenuation associated with this area. No evidence of acute hemorrhage. No midline shift or mass effect. No hydrocephalus. The basilar cisterns are clear. The orbits are normal. Paranasal sinuses are normal. Mastoid air cells are clear. No soft tissue abnormality is seen. Stable lytic lesion is seen within the calvarium at the midline posteriorly. IMPRESSION: 1. Area of chronic encephalomalacia within the left frontal lobe with surrounding decreased attenuation. This appears more prominent compared to prior exam and could represent acute on chronic ischemia. Recommend MRI brain to further evaluate. 2. Stable lytic lesion in the calvarium at the midline posteriorly. 3. No acute hemorrhage. Dictated by: Dictated on workstation # [id number]
--- NOTE | 2022-09-23 06:33 | Diagnostic Imaging Report ---
EXAMINATION: Chest radiograph, portable AP view. DATE: 09/23/2022 3:06 AM INDICATION: 82-year-old male, fall. Chest pain. COMPARISON: August 15, 2022. FINDINGS: There is a left-sided cardiac assist device with leads. Heart size and mediastinal contours are unchanged. There is no identified pneumothorax. There is no large pleural effusion. There is no identified interval focal airspace consolidation. IMPRESSION: 1. No identified acute cardiopulmonary abnormality. Dictated by: Dictated on workstation # [id number]
--- NOTE | 2022-09-23 06:34 | Diagnostic Imaging Report ---
EXAMINATION: Pelvis, single view. COMPARISON: None. HISTORY: 82-year-old male, fall, pelvic pain. FINDINGS: The pubic symphysis and sacroiliac joints are normally aligned. The hips are not obviously dislocated. The bones appear demineralized. There is no joint space loss of either hip, osteophyte formation, or subchondral cystic change. There are some technical limitations of the study given difficulties with exposure. There is no identified acute fracture. There are advanced disc degenerative changes of the lower lumbar spine at L4-L5 and L5-S1. IMPRESSION: 1. No identified acute bony abnormality of the pelvis. 2. Limitations of the exam relating to difficulties with exposure. Dictated by: Dictated on workstation # [id number]
--- NOTE | 2022-09-23 06:42 | History & Physical ---
History of Present Illness HPI/Chief Complaint CC: Multiple falls with right sided weakness and hypotension HPI: This is an 82yoWM [place] patient of Jia Gary and this examiner who has a h/o DM and CAD and AF and pacemaker who presents to the ER with multiple fall at [place]. He is confused and is unable to tell me exact details. His baseline function since CVA is expressive aphasia. Unable to obtain accurate NIH score due to baseline CVA deficits and confusion and no GA staff to collaborate. Due to hypotension I have moved him from [facility] to ICU for closer monitoring. Cardiology consultation appreciated. Source: patient, RN/MD, old records Exam Limitations: no limitations Date Seen 09/23/22 Time Seen by a Provider: 11:00 Attending Physician Josie Santos DO PCP Admitting Physician: Attending Physician: Referring Physician Date of Admission Home Medications & Allergies Home Medications Reviewed patient Home Medication Reconciliation performed by pharmacy medication reconciliations irrigation technician and/or nursing. Patients Allergies have been reviewed. Allergies Allergies Coded Allergies No Known Drug Allergies (Verified05/21/19) Past Tgtpvjr-Gzkaou-Hgbmhq Hx Past Med/Social Hx: Reviewed Nursing Past Med/Soc Hx, Reviewed and Corrections made Patient Social History Marrital Status: single Employed/Student: retired Alcohol Use: Denies Use Smoking Status: Former Smoker Former Smoker, Quit: Apr 17, 2018 Type Used: Cigarettes, Pipe Recent Hopitalizations: No Immunizations Up To Date Tetanus Booster (TDap): Unknown Date of Pneumonia Vaccine: Mar 19, 2019 Date of Influenza Vaccine: Dec 16, 2020 Seasonal Allergies Seasonal Allergies: No Past Medical History Surgeries: Abdominal, Bowel Surgery, Cardiac, Coronary Stent, Defibrillator Respiratory: COPD Cardiac: Atrial Fibrillation, Cardiomyopathy, Chronic Edema/Swelling, Coronary Artery Disease, High Cholesterol, Hypertension, Irregular Heartbeat Neurological: Stroke Reproductive: No Genitourinary: Renal Failure Gastrointestinal: Gastroesophageal Reflux, Polyps Musculoskeletal: Arthritis Endocrine: Diabetes, Non-Insulin dep HEENT: Cataract Loss of Vision: Denies Hearing Impairment: Denies Cancer: Skin, Melanoma, Colon Did You Recieve Any Treatments: Yes What Type of Treatment Did You: Surgical Intervention History of Blood Disorders: Yes (ANEMIA) Adverse Reaction to Blood Vizcarra: No Family History Patient reports no known family medical history. Diabetes PSH: -SKIN CANCER REMOVED WITH SKIN GRAFT -CARDIAC CATH 2015--EXTENSIVE DISEASE, NOT AMENABLE TO INTERVENTION. -DEFIBRILLATOR -COLONOSCOPY 05/2019 -RIGHT COLON RESECTION FOR CANCER 05/28/19 -LEFT NECK SURGERY -CARDIAC STENTS CARDIAC CATH 08/15/[address] RBOWN: CONCLUSION: Multiple stents in the dominant right coronary artery extending from the ostium to the bifurcation distally with patent stents with no obstructive disease Occluded obtuse marginal/mid circumflex artery, chronic with no collaterals Mild disease in the LAD Normal left ventricular end-diastolic pressure DISCUSSION AND RECOMMENDATION: Continue with medical therapy. No intervention is warranted Review of Systems ROS-Unable to Obtain: confusion Constitutional: see HPI Physical Exam Physical Exam Vital Signs Vital Signs - First Documented 09/23/22 09/23/22 04:32 16:34 O2 Flow Rate 2.00 FiO2 21 Capillary Refill : Less Than 3 Seconds Height, Weight, BMI Height: 5'7.00" Weight: 190lbs. 2.0oz. 86.468498pm; 26.48 BMI Method:Estimated General Appearance: No Apparent Distress, WD/WN, Chronically ill HEENT: PERRL/EOMI, Pharynx Normal, Other (EDENTULOUS. SLIGHT RIGHT SIDE F ACIAL DROOP. NO EXTERNAL EVIDENCE OF TRAUMA TO HEAD OR FACE. ) Neck: Normal Inspection, Non Tender Respiratory: Normal Breath Sounds, No Accessory Muscle Use, No Respiratory Distress Cardiovascular: Regular Rate, Rhythm, No Edema, No JVD, No Murmur, Normal Peripheral Pulses Gastrointestinal: Non Tender, Soft Back: Normal Inspection, No CVA Tenderness, No Vertebral Tenderness Extremity: Normal Capillary Refill, No Calf Tenderness, No Pedal Edema, Other (MILD BILATERAL HIP TENDERNESS. ) Neurologic/Psychiatric: Alert, Normal Mood/Affect, Aphasia, Facial Droop, Motor Weakness (right sided weakness?), Other (NIH 5; MILD RIGHT FACIAL DROOP. ELLIE ATERAL ARM AND LEG STRENGTH IS EQUAL, BUT HAS LIMB ATAXIA IN BOTH UPPER ARMS--UNABLE TO DO CYMYGC-XU-ERGO WITH EITHER ARM. MILD APHASIA AND MILD DYSARTHRIA. PT DOES HAVE DIFFICULY FOLLOWING SOME SIMPLE COMMANDS. ) Skin: Normal Color, Warm/Dry Results Results/Procedures Labs Laboratory Tests 09/23/22 02:48 Patient resulted labs reviewed. Assessment/Plan Admission Diagnosis Assessment: Multiple falls at AL Hypotension likely due to volume depletion New right sided weakness? 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
[2022-09-23] MEDS ORDERED: CALCIUM CARBONATE 500 MG (TUMS) TAB.CHEW PO PRN (09:00)
[2022-09-23] MEDS ORDERED: MELATONIN 3 MG TABLET PO PRN (09:00)
[2022-09-23] MEDS ORDERED: LACTULOSE SYRUP 10GM/15ML (ENULOSE) 30ML UDC PO PRN (09:00)
[2022-09-23] MEDS ORDERED: ANTACID SUSP 30 ML UDC (MYLANTA) PO PRN (09:00)
[2022-09-23] MEDS ORDERED: ONDANSETRON 4 MG (ZOFRAN) ORAL DISSOLVE TAB PO PRN (09:00)
[2022-09-23] MEDS ORDERED: BISACODYL 10 MG SUPP (DULCOLAX) PR PRN (09:00)
[2022-09-23] MEDS ORDERED: diphenhydrAMINE 25 MG TAB (BENADRYL) PO PRN (09:00)
[2022-09-23] MEDS ORDERED: diphenhydrAMINE 50 MG/ML INJ (BENADRYL) IVP PRN (09:00)
[2022-09-23] MEDS ORDERED: ONDANSETRON 4 MG/2 ML (SDV) Z0FRAN IV PRN (09:00)
[2022-09-23] MEDS ORDERED: morphine INJ 4 MG/ML 1 ML (VIAL/SYRINGE) IV PRN (09:00)
[2022-09-23] MEDS ORDERED: MILK OF MAGNESIA 400 MG/5 ML 30 ML UDC PO PRN (09:00)
[2022-09-23] MEDS ORDERED: polyethylene glycoL POWDER 17 GM (MIRALAX) PACK PO PRN (09:00)
[2022-09-23] MEDS: SENNOSIDES 8.6 MG (SENOKOT) TAB PO SCH ×2 (09:24→21:32)
[2022-09-23] MEDS: APIXABAN 5 MG (ELIQUIS) TABLET PO SCH ×2 (09:24→21:33)
[2022-09-23] MEDS: NS IV 1000 ML 1,000 ML IV SCH ×2 (09:24→18:00)
[2022-09-23] MEDS: DOCUSATE SODIUM 100 MG (COLACE) CAP PO SCH ×2 (09:24→21:33)
[2022-09-23] MEDS: inSUlin ASPART (NovoLOG) 1 UNIT/0.01 ML (CHARGE PER UNIT) SC SCH ×3 (11:58→21:33)
[2022-09-23] MEDS ORDERED: NS IV 500 ML 500 ML IV PRN ×2 (12:00)
--- NOTE | 2022-09-23 12:18 | Consultation-Cardiology ---
HPI-Cardiology Cardiology Consultation: Date of Consultation 09/23/22 Time Seen by a Provider: 12:20 Date of Admission Attending Physician Josie Duran DO Admitting Physician Admitting Physician: Josie Duran DO Attending Physician: Josie Duran DO Consulting Physician BIANCA DAVIS MD, MA, FACP, FACC, FSCAI, CCDS Physician requesting consult: Dr Duran HPI: Chief Complaint: Weakness 82 yo [address] to Dr Duran's svce last night with gen weakness, altered mental status, and a possible fall at his NH. He denies cp or palp or syncope or shortness of breath at rest. He has chronic R-sided arm and leg weakness and speech impairment after a stroke a few years ago. He denies leg swelling or fever or chills Review of Systems-Cardiology Review of Systems Constitutional: malaise, tiredness; No weight loss, No weight gain Eyes: No vision change Ears/Nose/Throat: No ear discharge, No nasal drainage, No recent hearing loss Cardiovascular: As described under HPI Gastrointestinal: As described under HPI Genitourinary: No dysuria, No hematuria, No urine frequency changes Musculoskeletal: back pain (chronic), joint pain (chronic), other (chronic, bilat leg weakness and propensity to falls) Skin: No rash, No ulcerations Psychiatric/Neurological: As described under HPI Hematologic: No bleeding abnormalities EFO-Thtvje-Uuwwji Hx Patient Social History Pt feels they are or have been: No Immunizations Up To Date Tetanus Booster (TDap): Unknown Date of Pneumonia Vaccine: Mar 19, 2019 Date of Influenza Vaccine: Dec 16, 2020 Past Medical History PMH As described under Assessment. Family Medical History Family Medical History: No reported fam h/o early CAD or SCD Family History: Patient reports no known family medical history. Allergies and Home Medications Allergies Coded Allergies: No Known Drug Allergies (Verified , 05/21/19) Patient Home Medication List Home Medication List Reviewed: Yes Acetaminophen (Tylenol Extra Strength) 500 Mg Tablet, 1,000 MG PO Q6H PRN for PAIN-MILD (1-4), (Reported) Entered as Reported by: NAE BRIGGS on 08/15/22 1218 Amiodarone HCl (Amiodarone HCl) 200 Mg Tablet, 400 MG PO BID, (Reported) Entered as Reported by: NAE BRIGGS on 08/15/22 1218 Apixaban (Eliquis) 2.5 Mg Tablet, 2.5 MG PO BID, (Reported) Entered as Reported by: NAE BRIGGS on 08/15/22 1218 Aspirin (Aspirin EC) 81 Mg Tablet.dr, 81 MG PO HS, (Reported) Entered as Reported by: DINA HENNING on 04/13/15 1028 Bismuth Subsalicylate (Pepto-Bismol) 262 Mg/15 Ml Oral.susp, 30 ML PO Q2H PRN for NAUSEA/VOMITING, (Reported) Entered as Reported by: NAE BRIGGS on 08/15/22 1218 Carvedilol (Carvedilol) 12.5 Mg Tablet, 12.5 MG PO BID, (Reported) Entered as Reported by: RODNEY CONWAY on 05/08/21 1043 Cetirizine HCl (Zyrtec) 10 Mg Tablet, 10 MG PO DAILY, (Reported) Entered as Reported by: NAE BRIGGS on 08/15/22 1218 Cholecalciferol (Vitamin D3) (Vitamin D3) 50 Mcg Capsule, 50 MCG PO DAILY, (Reported) Entered as Reported by: SKYLA JUAREZ on 05/19/19 1316 Digoxin (Digoxin) 125 Mcg Tablet, 125 MCG PO DAILY, (Reported) Entered as Reported by: VINEET LABOY on 03/27/18 1342 Docusate Sodium (Colace) 100 Mg Capsule, 100 MG PO BID, (Reported) Entered as Reported by: NAE BRIGGS on 08/15/22 1218 Enalapril Maleate (Enalapril Maleate) 2.5 Mg Tablet, 2.5 MG PO DAILY, (Reported) Entered as Reported by: VINEET LABOY on 03/27/18 1342 Ferrous Sulfate (Ferrous Sulfate) 325 Mg Tablet, 325 MG PO Q48H, (Reported) Entered as Reported by: GARCIA HEART on 05/26/19 1142 Furosemide (Furosemide) 40 Mg Tablet, 40 MG PO DAILY, (Reported) Entered as Reported by: VINEET LABOY on 03/27/18 1342 Glimepiride (Amaryl) 1 Mg Tab, 1 MG PO DAILY, (Reported) Entered as Reported by: NAE BRIGGS on 08/15/22 1218 Glimepiride (Glimepiride) 2 Mg Tablet, 2 MG PO DAILY, (Reported) Entered as Reported by: NAE BRIGGS on 08/15/22 1218 Glimepiride (Glimepiride) 2 Mg Tablet, 2 MG PO HS, (Reported) Entered as Reported by: NAE BRIGGS on 08/15/22 1218 Methimazole (Methimazole) 5 Mg Tablet, 5 MG PO HS, (Reported) Entered as Reported by: DINA HENNING on 04/13/15 1028 Omeprazole (Omeprazole) 20 Mg Capsule.dr, 20 MG PO DAILY, (Reported) Entered as Reported by: VINEET LABOY on 03/27/18 1342 Rosuvastatin Calcium (Rosuvastatin Calcium) 10 Mg Tablet, 10 MG PO DAILY, (Rep orted) Entered as Reported by: RODNEY CONWAY on 05/08/21 1043 Spironolactone (Spironolactone) 25 Mg Tablet, 25 MG PO DAILY, (Reported) Entered as Reported by: SKYLA JUAREZ on 05/19/19 1316 Physical Exam-Cardiology Physical Exam Vital Signs/I&O 09/23/22 09/23/22 09/23/22 09/23/22 02:43 02:43 04:32 08:44 Temp 36.7 36.7 36.7 Pulse 62 62 60 Resp 16 16 16 B/P (MAP) 114/54 (74) 114/54 (74) 104/41 Pulse Ox 96 96 95 O2 Delivery Room Air Room Air Nasal Cannula Nasal Cannula O2 Flow Rate 2.00 2.00 09/23/22 09/23/22 09/23/22 09/23/22 08:55 09:10 09:24 09:27 Temp 36.6 Pulse 61 63 Resp 18 B/P (MAP) 119/51 (73) Pulse Ox 96 O2 Delivery Nasal Cannula Nasal Cannula Nasal Cannula O2 Flow Rate 2.00 2.00 1.00 09/23/22 11:40 Temp 36.0 Pulse 61 Resp 18 B/P (MAP) 82/36 (51) Pulse Ox 94 O2 Delivery Nasal Cannula O2 Flow Rate 105.00 Capillary Refill : Less Than 3 Seconds Constitutional: AAO x 3, well-developed, well-nourished HEENT: PERRL; No xanthelasmas are seen Neck: carotid pulses are 2 + bilaterally, with good upstrokes Respiratory: No accessory muscle use; chest expansion is symmetric, chest is bilaterally symmetric, other (fair to good, bilateral air entry that is diminished at the bases) Cardiovascular: regular rate-rhythm, S1 and S2, systolic murmur (soft RENATO at card base) Gastrointestinal: No tender; soft; No guarding, No rebound; audible bowel sounds Extremities: No clubbing, No cyanosis, No significant edema Neurologic/Psychiatric: oriented x 3, other (R leg and arm weakness) Data Review Labs Laboratory Tests 09/23/22 02:48: White Blood Count 16.8H, Red Blood Count 4.64, Hemoglobin 13.4, Hematocrit 40, Mean Corpuscular Volume 86, Mean Corpuscular Hemoglobin 29, Mean Corpuscular Hemoglobin Concent 34, Red Cell Distribution Width 15.6H, Platelet Count 376, Mean Platelet Volume 10.3, Immature Granulocyte % (Auto) 1, Neutrophils (%) (Auto) 80H, Lymphocytes (%) (Auto) 6L, Monocytes (%) (Auto) 11, Eosinophils (%) (Auto) 2, Basophils (%) (Auto) 0, Neutrophils # (Auto) 13.5H, Lymphocytes # (Auto) 1.0, Monocytes # (Auto) 1.9H, Eosinophils # (Auto) 0.3, Basophils # (Auto) 0.0, Immature Granulocyte # (Auto) 0.2H, Neutrophils % (Manual) 84, Lymphocytes % (Manual) 6, Monocytes % (Manual) 10, Farzad Cells SLIGHT, Blood Morphology Comment , Prothrombin Time 15.7H, INR Comment 1.2, Activated Partial Thromboplast Time 40H, Sodium Level 135, Potassium Level 4.3, Chloride Level 104, Carbon Dioxide Level 20L, Anion Gap 11, Blood Urea Nitrogen 26H, Creatinine 1.67H, Estimat Glomerular Filtration Rate 41, BUN/Creatinine Ratio 16, Glucose Level 129H, Calcium Level 8.8, Corrected Calcium 9.6, Magnesium Level 1.9, Total Bilirubin 0.6, Aspartate Amino Transf (AST/SGOT) 87H, Alanine Aminotransferase (ALT/SGPT) 99H, Alkaline Phosphatase 58, Total Creatine Kinase 1106H, Creatine Kinase MB 5.3, Myoglobin 570.8H, Troponin I 0.034H, Total Protein 6.1L, Albumin 3.0L, TSH [place] Testing 1.16, Digoxin Level 2.40*H 09/23/22 10:59: Glucometer 106 09/23/22 12:23: Laboratory Tests 09/23/22 02:48 A/P-Cardiology Assessment/Admission Diagnosis Altered mental status of undetermined etiology - managed by Dr Duran Chronic gen weakness and propensity to falls - managed by Dr Duran 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 Normal left ventricular size with hypokinesia in the inferior wall and inferolateral wall, ejection fraction 33% - Last card cath by Dr Rosenberg in July 2022: Left Main is free of obstructive disease. Left Anterior Descending is tortuous with mild disease nonobstructive disease. Left Circumflex isoccluded at the midportion. Right Coronary Artery is large dominant artery has multiple stents extending from the ostium till the bifurcation, patent stent with no obstructive disease Minimal troponin elevation, likely type 2 [place] due to labile BP H/o ICD implantation - managed by Dr Rosenberg Paroxysmal atrial fibrillation - h/o cardioversion, currently on Eliquis and amiodarone. Carotid artery stenosis - status post left CEA in 2011 - CTA head and neck done June 2018 revealed right moderate ICA stenosis. 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
[2022-09-23] MEDS: NOREPINEPHRINE 8 MG/250 ML 250 ML IV SCH (13:33)
--- NOTE | 2022-09-23 13:37 | Tele-ICU Consult ---
Progress Note 82 y/o male lives in assisted living environment. EMS transport the patient to ED due to unwitnessed falls. Patient is on eliquis and has AICD HAs hx of expressive aphasia and prior CVA DM CAD CT head performed: no acute bleed WBC: 16,000 Dig level slightly elevated at 2.4 IMP: s/p fall on eliquis PLAN: ICU admission for observation At risk for ICU delerium Focused Exam Lactate Level 09/23/22 12:23: Lactic Acid Level 1.85 Height, Weight, BMI Height: 5'7.00" Weight: 190lbs. 2.0oz. 86.267088zs; 28.32 BMI Method:Estimated Lactic Acid Level Laboratory Tests Test 09/23/22 12:23 Lactic Acid Level 1.85 MMOL/L (0.50-2.00) Labs Laboratory Tests 09/23/22 02:48 Results Results/Procedures Lab Laboratory Tests 09/23/22 02:48 Results Results/Procedures Labs Laboratory Tests 09/23/22 02:48 Patient resulted labs reviewed. Results Labs Labs Laboratory Tests 09/23/22 02:48: White Blood Count 16.8H, Red Blood Count 4.64, Hemoglobin 13.4, Hematocrit 40, Mean Corpuscular Volume 86, Mean Corpuscular Hemoglobin 29, Mean Corpuscular Hemoglobin Concent 34, Red Cell Distribution Width 15.6H, Platelet Count 376, Mean Platelet Volume 10.3, Immature Granulocyte % (Auto) 1, Neutrophils (%) (Auto) 80H, Lymphocytes (%) (Auto) 6L, Monocytes (%) (Auto) 11, Eosinophils (%) (Auto) 2, Basophils (%) (Auto) 0, Neutrophils # (Auto) 13.5H, Lymphocytes # (Auto) 1.0, Monocytes # (Auto) 1.9H, Eosinophils # (Auto) 0.3, Basophils # (Auto) 0.0, Immature Granulocyte # (Auto) 0.2H, Neutrophils % (Manual) 84, Lymphocytes % (Manual) 6, Monocytes % (Manual) 10, Afrzad Cells SLIGHT, Blood Morphology Comment , Prothrombin Time 15.7H, INR Comment 1.2, Activated Partial Thromboplast Time 40H, Sodium Level 135, Potassium Level 4.3, Chloride Level 104, Carbon Dioxide Level 20L, Anion Gap 11, Blood Urea Nitrogen 26H, Creatinine 1.67H, Estimat Glomerular Filtration Rate 41, BUN/Creatinine Ratio 16, Glucose Level 129H, Calcium Level 8.8, Corrected Calcium 9.6, Magnesium Level 1.9, Total Bilirubin 0.6, Aspartate Amino Transf (AST/SGOT) 87H, Alanine Aminotransferase (ALT/SGPT) 99H, Alkaline Phosphatase 58, Total Creatine Kinase 1106H, Creatine Kinase MB 5.3, Myoglobin 570.8H, Troponin I 0.034H, Total Protein 6.1L, Albumin 3.0L, TSH [place] Testing 1.16, Digoxin Level 2.40*H 09/23/22 10:59: Glucometer 106 09/23/22 12:23: Lactic Acid Level 1.85 CARINE ZARATE MD Sep 23, 2022 13:37
[2022-09-23 14:12] LABS: BILIRUBIN,URINE NEGATIVE (NEGATIVE); CLARITY,URINE CLEAR; COLOR,URINE YELLOW; GLUCOSE, URINE (UA) TRACE (NEGATIVE); KETONES,URINE NEGATIVE (NEGATIVE); LEUKOCYTE ESTERASE ,URINE NEGATIVE (NEGATIVE); NITRITE,URINE NEGATIVE (NEGATIVE); PH,URINE 5.5 (5-9); PROTEIN,URINE TRACE (NEGATIVE)
[2022-09-23 14:29] LABS: BACTERIA,URINE TRACE /HPF; SQUAMOUS EPITHELIAL CELL,UR 0-2 /HPF; WBC,URINE 0-2 /HPF
[2022-09-23] MEDS ORDERED: RT-ALBUTEROL/IPRATROPIUM 3 ML (DUONEB) VIAL INH PRN (17:15)
[2022-09-24] VITALS (17 sets, daily range): BP systolic 98–133; BP diastolic 37–72
[2022-09-24] MEDS: NS IV 1000 ML 1,000 ML IV SCH ×4 (01:43→23:38)
[2022-09-24 04:07] LABS: BASOPHILS % (AUTO) 0 % (0-10); EOSINOPHILS # (AUTO) 0.3 10^3/uL (0.0-0.3); EOSINOPHILS % (AUTO) 2 % (0-10); HEMATOCRIT 34 % (40-54); HEMOGLOBIN 11.5 g/dL (13.3-17.7); LYMPHOCYTES # (AUTO) 0.8 10^3/uL (1.0-4.0); LYMPHOCYTES % (AUTO) 6 % (12-44); MEAN CORPUSCULAR HEMOGLOBIN 29 pg (25-34); MEAN CORPUSCULAR HGB CONC 34 g/dL (32-36); MEAN CORPUSCULAR VOLUME 85 fL (80-99); MEAN PLATELET VOLUME 11.1 fL (9.0-12.2); MONOCYTES # (AUTO) 1.7 10^3/uL (0.0-1.0); MONOCYTES % (AUTO) 12 % (0-12); NEUTROPHILS # (AUTO) 10.9 10^3/uL (1.8-7.8); NEUTROPHILS % (AUTO) 79 % (42-75); PLATELET COUNT 341 10^3/uL (130-400); WHITE BLOOD COUNT 13.9 10^3/uL (4.3-11.0)
[2022-09-24 04:15] LABS: ALBUMIN 2.4 GM/DL (3.2-4.5); POTASSIUM 3.8 MMOL/L (3.6-5.0)
[2022-09-24 04:16] LABS: CALCIUM 7.8 MG/DL (8.5-10.1)
[2022-09-24 04:18] LABS: TOTAL PROTEIN 4.9 GM/DL (6.4-8.2)
[2022-09-24 04:19] LABS: BILIRUBIN,TOTAL 0.4 MG/DL (0.1-1.0)
[2022-09-24 04:21] LABS: CREATININE SERUM 1.26 MG/DL (0.60-1.30); PHOSPHORUS 1.8 MG/DL (2.3-4.7)
[2022-09-24 04:24] LABS: MAGNESIUM 1.8 MG/DL (1.6-2.4)
[2022-09-24] MEDS: MAGNESIUM 1 GM/100 ML IVPB 100 ML IV SCH ×2 (04:41→06:00)
[2022-09-24] MEDS: NOREPINEPHRINE 8 MG/250 ML 250 ML IV SCH (04:56)
[2022-09-24] MEDS ORDERED: MAGNESIUM 1 GM/100 ML IVPB 100 ML IV SCH (06:00)
[2022-09-24] MEDS ORDERED: KCL 20 MEQ TAB (K-DUR) PO SCH ×2 (06:00)
[2022-09-24] MEDS ORDERED: POTASSIUM CL 10MEQ/50ML IVPB 50 ML IV SCH ×2 (06:00)
[2022-09-24] MEDS: inSUlin ASPART (NovoLOG) 1 UNIT/0.01 ML (CHARGE PER UNIT) SC SCH ×4 (06:21→20:55)
[2022-09-24] MEDS ORDERED: LIDOCAINE 2% VISCOUS 15 ML UDC PO ONE (08:00)
--- NOTE | 2022-09-24 08:42 | Physical Therapy Evaluation ---
PT Evaluation-General Medical Diagnosis Admission Date Sep 23, 2022 at 08:41 Medical Diagnosis: AMS Onset Date: Sep 23, 2022 Therapy Diagnosis Therapy Diagnosis: impaired mobility/generalized weakness Height/Weight Height (Feet): 5 Height (Inches): 7.00 Weight (Pounds): 190 Weight (Ounces): 2.0 Precautions Precautions/Isolations: Fall Prevention, Standard Precautions Referral Physician: Renee Reason for Referral: Evaluation/Treatment Medical History Pertinent Medical History: Atrial Fib, Arthritis, CAD, COPD, CVA, DM, GERD, Heart Failure, HTN, Renal Insufficiency Current History EMS secondary to unwitnessed fall Reviewed History: Yes Social History Home: Assisted Living Prior Prior Level of Function SCALE: Activities may be completed with or without assistive devices. 4-Zfmqefmmqk-nzymnng completes the activity by him/herself with no assistance from a helper. 5-Set-up or Clean-up Assistance-helper sets up or cleans up; patient completes activity. [place] assists only prior to or following the activity. 4-Supervision or Touching Assistance-helper provides verbal cues and/or touching/steadying and/or contact guard assistance as patient completes activity. Assistance may be provided throughout the activity or intermittently. 3-Partial/Moderate Assistance-helper does LESS THAN HALF the effort. [place] lifts, holds or supports trunk or limbs, but provides less than half the effort. 2-Substantial/Maximal Assistance-helper does MORE THAN HALF the effort. [place] lifts or holds trunk or limbs and provides more than half the effort. 4-Xsmownxqx-eeqosv does ALL the effort. Patient does none of the effort to complete the activity. Or, the assistance of 2 or more helpers is required for the patient to complete the activity. If activity was not attempted, code reason: 7-Patient Refused. 9-Not Applicable-not attempted and the patient did not perform the activity before the current illness, exacerbation or injury. 10-Not Attempted due to Environmental Limitations-(lack of equipment, weather restraints, etc.). 88-Not Attempted due to Medical Conditions or Safety Concerns. Bed Mobility: 3 Transfers (B,C,W/C): 3 Gait: 3 Indoor Mobility (Ambulation): Needed Some Help Prior Devices Use: Walker Prior Device Use: FWW and 4WW per patient report PT Evaluation-Current Subjective Patient agrees to PT. Objective Patient Orientation: Person, Time, Situation Attachments: Oxygen, Retana Catheter, IV ROM/Strength ROM Lower Extremities bilateral LE WFL Strength Lower Extremities right knee flexion/extension 3-/5;left LE 3/5 grossly Integumentary/Posture Bladder Incontinence: Retana Cath Posture WFL Neuromuscular (Tone, Coordination, Reflexes) diminished with all Sensory Vision: Functional Hearing: Functional Transfers Lying to Sitting/Side of Bed(Q: 3 Sit to Stand (QC): 3 Chair/Opz-fn-Sfuvb Xfer(QC): 3 mod assist with all mobility Gait Mode of Locomotion: Walk Anticipated Mode of Locomotion: Both Walk 10 feet (QC): 3 (mod assist with difficulty advancing right LE) Walk 50 ft with 2 Turns(QC): 88 Walk 150 ft (QC): 88 Distance: 10' Gait Assistive Device: FWW Comments/Gait Description slow, unsteady, shuffle gait Balance Sitting Static: Fair Sitting Dynamic: Fair Standing Static: Fair Standing Dynamic: Poor Assessment/Needs Patient will benefit from skilled PT to address functional strength and mobility to improve current LOF to safely return to AL at maximum LOF. Rehab Potential: Guarded PT Correction Goals Insurance Administrative Assistant Goals PT Correction Goals Time Frame: Oct 06, 2022 Roll Left & Right (QC): 4 Sit to Lying (QC): 4 Lying-Sitting on Side/Bed(QC): 4 Sit to Stand (QC): 4 Chair/Eyd-my-Gbrql Xfer(QC): 4 Toilet Transfer (QC): 4 Walk 10 feet (QC): 4 Walk 50ft with 2 Turns (QC): 4 PT Plan Problem List Problem List: Activity Tolerance, Functional Strength, Safety, Balance, Gait, Transfer, Bed Mobility Treatment/Plan Treatment Plan: Continue Plan of Care Treatment Plan: Bed Mobility, Education, Functional Activity Kristine, Functional Strength, Gait, Safety, Therapeutic Exercise, Transfers Treatment Duration: Oct 06, 2022 Frequency: 5 times per week Estimated Hrs Per Day: .25 hour per day Time Time In: 821 Time Out: 833 DATE: Sep 24, 2022 Total Billed Treatment Time: 12 Total Billed Treatment 1 visit EVMod 12 min CRISTIAN SAUCEDA PT Sep 24, 2022 08:42
--- NOTE | 2022-09-24 08:48 | Progress Note ---
Subjective Date Seen by a Provider: Sep 24, 2022 Time Seen by a Provider: 08:45 Focused Exam Lactate Level 09/23/22 12:23: Lactic Acid Level 1.85 Objective Exam Last Set of Vital Signs Vital Signs Date Time Temp Pulse Resp B/P (MAP) Pulse Ox O2 Delivery O2 Flow Rate FiO2 09/24/22 08:00 36.8 Nasal Cannula 3.00 09/24/22 07:00 60 09/24/22 06:38 21 113/55 (74) 91 09/23/22 16:34 21 Capillary Refill : Less Than 3 Seconds I&O Intake and Output 09/24/22 00:00 Intake Total 3480 ml Output Total 1125 ml Balance 2355 ml Intake Oral 480 ml IV Total 3000 ml Output Urine Total 1125 ml Daily Weight Change No Results Lab Laboratory Tests 09/23/22 10:59: Glucometer 106 09/23/22 12:23: Lactic Acid Level 1.85 09/23/22 13:50: Urine Color YELLOW, Urine Clarity CLEAR, Urine pH 5.5, Urine Specific [place] 1.025H, Urine Protein TRACEH, Urine Glucose (UA) TRACEH, Urine Ketones NEGATIVE, Urine Nitrite NEGATIVE, Urine Bilirubin NEGATIVE, Urine Urobilinogen 1.0, Urine Leukocyte Esterase NEGATIVE, Urine RBC (Auto) NEGATIVE, Urine RBC NONE, Urine WBC 0-2, Urine Squamous Epithelial Cells 0-2, Urine Crystals NONE, Urine Bacteria TRACE, Urine Casts NONE, Urine Mucus NEGATIVE, Urine Culture Indicated NO 09/23/22 16:18: Glucometer 156H 09/23/22 16:35: Bedside Blood Gas pH (LAB) 7.432H, Bedside Blood Gas pCO2 (LAB) 30.8L, Bedside Blood Gas pO2 (LAB) 84, Bedside Blood Gas HCO3 (LAB) 20.6L, POC Blood Gas Total CO2 Calc 22L, Bedside Bl Gas O2 Saturation (Calc) 97, Bedside Arterial Blood Base Excess -4L 09/23/22 21:17: Glucometer 177H 09/24/22 03:36: White Blood Count 13.9H, Red Blood Count 3.95L, Hemoglobin 11.5L, Hematocrit 34L , Mean Corpuscular Volume 85, Mean Corpuscular Hemoglobin 29, Mean Corpuscular Hemoglobin Concent 34, Red Cell Distribution Width 15.7H, Platelet Count 341, Mean Platelet Volume 11.1, Immature Granulocyte % (Auto) 1, Neutrophils (%) (A uto) 79H, Lymphocytes (%) (Auto) 6L, Monocytes (%) (Auto) 12, Eosinophils (%) (Auto) 2, Basophils (%) (Auto) 0, Neutrophils # (Auto) 10.9H, Lymphocytes # (Auto) 0.8L, Monocytes # (Auto) 1.7H, Eosinophils # (Auto) 0.3, Basophils # (Auto) 0.0, Immature Granulocyte # (Auto) 0.1, Sodium Level 139, Potassium Level 3.8, Chloride Level 110H, Carbon Dioxide Level 21, Anion Gap 8, Blood Urea Nitrogen 17, Creatinine 1.26, Estimat Glomerular Filtration Rate 58, BUN/Creatinine Ratio 13, Glucose Level 114H, Calcium Level 7.8L, Corrected Calcium 9.1, Phosphorus Level 1.8L, Magnesium Level 1.8, Total Bilirubin 0.4, Aspartate Amino Transf (AST/SGOT) 53H, Alanine Aminotransferase (ALT/SGPT) 63H, Alkaline Phosphatase 55, Total Protein 4.9L, Albumin 2.4L, Digoxin Level 1.56 09/24/22 06:10: Bedside Blood Gas pH (LAB) 7.403, Bedside Blood Gas pCO2 (LAB) 34.1L, Bedside Blood Gas pO2 (LAB) 61L, Bedside Blood Gas HCO3 (LAB) 21.3L, POC Blood Gas Total CO2 Calc 22L, Bedside Bl Gas O2 Saturation (Calc) 91L, Bedside Arterial Blood Base Excess -3L 09/24/22 06:11: Glucometer 104 Microbiology 09/23/22 MRSA Screen - Final, Complete MRSA not isolated Diagnosis/Problems Diagnosis/Problems (1) Elevated digoxin level Status: Acute (2) Multiple falls Status: Acute GRISELDA SANTOS DO Sep 24, 2022 08:48
--- NOTE | 2022-09-24 09:03 | Occupational Therapy Eval ---
OT Evaluation-General/PLF Medical Diagnosis Admission Date Sep 23, 2022 at 08:41 Medical Diagnosis: AMS Onset Date: Sep 23, 2022 Therapy Diagnosis Therapy Diagnosis: weakness Height/Weight Height (Feet): 5 Height (Inches): 7.00 Weight (Pounds): 190 Weight (Ounces): 2.0 Precautions Precautions/Isolations: Fall Prevention, Standard Precautions Weight Bear Status Weight Bearing Restriction: Weight Bearing/Tolerated Referral Physician: Renee Referral Reason: Evaluation/Treatment Medical History Pertinent Medical History: Atrial Fib, Arthritis, CAD, COPD, CVA, DM, GERD, Heart Failure, HTN, Renal Insufficiency Current History per admission 82yoWM AL patient h/o DM and CAD and AF and pacemaker who presents to the ER with multiple fall at [place]. He is confused and is unable to tell me exact details. His baseline function since CVA is expressive aphasia. Unable to obtain accurate NIH score due to baseline CVA deficits and confusion and no AL staff to collaborate Reviewed History: Yes Social History Home: Assisted Living ADL-Prior Level of Function SCALE: Activities may be completed with or without assistive devices. 2-Qxrpvjwovw-qmfmarm completes the activity by him/herself with no assistance from a helper. 5-Set-up or Clean-up Assistance-helper sets up or cleans up; patient completes activity. [place] assists only prior to or following the activity. 4-Supervision or Touching Assistance-helper provides verbal cues and/or touching/steadying and/or contact guard assistance as patient completes activity. Assistance may be provided throughout the activity or intermittently. 3-Partial/Moderate Assistance-helper does LESS THAN HALF the effort. [place] li fts, holds or supports trunk or limbs, but provides less than half the effort. 2-Substantial/Maximal Assistance-helper does MORE THAN HALF the effort. [place] lifts or holds trunk or limbs and provides more than half the effort. 2-Uifajjofh-trblgs does ALL the effort. Patient does none of the effort to complete the activity. Or, the assistance of 2 or more helpers is required for the patient to complete the activity. If activity was not attempted, code reason: 7-Patient Refused. 9-Not Applicable-not attempted and the patient did not perform the activity before the current illness, exacerbation or injury. 10-Not Attempted due to Environmental Limitations-(lack of equipment, weather restraints, etc.). 88-Not Attempted due to Medical Conditions or Safety Concerns. Self Care: Needed Some Help Functional Cognition: Needed Some Help Drive Self: No OT Current Status Subjective Agrees to OT Mental Status/Objective Patient Orientation: Person Attachments: Retana Catheter, IV, Oxygen, Telemetry Current Glasses/Contacts: Yes Upper Extremity ROM IMPAIRED Upper Extremity Coordination IMPAIRED Upper Extremity Strength IMPAIRED ADL-Treatment Eating (QC): 5 Oral Hygiene (QC): 5 Shower/Bathe Self (QC): 7 Upper Body Dressing (QC): 7 Lower Body Dressing (QC): 7 On/Off Footwear (QC): 1 Toileting Hygiene (QC): 7 Education Teaching Recipient: Patient Teaching Methods: Demonstration, Discussion Response to Teaching: Reinforcement Needed OT Group Home Goals Group Home Goals Eating (QC): 6 Oral Hygiene (QC): 6 Toileting Hygiene (QC): 4 Shower/Bathe Self (QC): 4 Upper Body Dressing (QC): 4 Lower Body Dressing (QC): 4 On/Off Footwear (QC): 4 1=Demonstrate adherence to instructed precautions during ADL tasks. 2=Patient will verbalize/demonstrate understanding of assistive devices/modifications for ADL. 3=Patient will improve strength/tolerance for activity to enable patient to p erform ADL's. OT Education/Plan Problem List/Assessment Assessment: Decreased Activ Tolerance, Decreased Safety Aware, Decreased UE Strength, Impaired Coordination, Impaired Funct Balance, Impaired Self-Care Sk ills, Restricted Funct UE ROM Discharge Recommendations Plan/Recommendations: Continue POC Therapy Discharge Recommendati: Post Acute OT Treatment Plan/Plan of Care Treatment,Training & Education: Yes Patient would benefit from OT for education, treatment and training to promote independence in ADL's, mobility, safety and/or upper extremity function for ADL's. Plan of Care: ADL Retraining, Caregiver Training, Concurrent Therapy, Functional Mobility, Group Exercise/Act as Ind, UE Funct Exercise/Act, UE Neuromus Re-Ed/Coord Treatment Duration: Sep 28, 2022 Frequency: 3 times per week (3-5 times per week) Rehab Potential: Guarded Time Start Time: 08:21 Stop Time: 08:33 DATE: Sep 24, 2022 Total Time Billed (hr/min): 12 Billed Treatment Time EVM 12 min CATARINO ARTHUR OT Sep 24, 2022 09:02
[2022-09-24] MEDS: DOCUSATE SODIUM 100 MG (COLACE) CAP PO SCH ×2 (09:05→20:53)
[2022-09-24] MEDS: APIXABAN 5 MG (ELIQUIS) TABLET PO SCH ×2 (09:06→20:53)
[2022-09-24] MEDS: SENNOSIDES 8.6 MG (SENOKOT) TAB PO SCH ×2 (09:07→20:54)
--- NOTE | 2022-09-24 11:10 | Progress Note ---
TONIOERIN 09/24/22 1110: Subjective Date Seen by a Provider: Sep 24, 2022 Time Seen by a Provider: 08:15 Subjective/Events-last exam Patient seen and examined at bedside this morning. Reports he still feels weak. When asked about the etiology of his recent falls he reports he felt like his R leg "would not work". Denies any pain. He is not short of breath and is not experiencing chest pain. He is tolerating his diet without N/V/D. Denies fever and chills. Review of Systems General: No Chills HEENT: No Head Aches, No Visual Changes Pulmonary: No Dyspnea, No Cough Cardiovascular: No: Chest Pain, Palpitations Gastrointestinal: No: Nausea, Vomiting, Abdominal Pain Genitourinary: No Dysuria, No Hematuria Neurological: Weakness; No: Change in speech, Confusion Focused Exam Lactate Level 09/23/22 12:23: Lactic Acid Level 1.85 Objective Exam Last Set of Vital Signs Vital Signs Date Time Temp Pulse Resp B/P (MAP) Pulse Ox O2 Delivery O2 Flow Rate FiO2 09/24/22 09:00 64 18 113/49 (70) 94 Nasal Cannula 1.00 09/24/22 08:00 36.8 09/23/22 16:34 21 Capillary Refill : Less Than 3 Seconds I&O Intake and Output 09/24/22 00:00 Intake Total 3480 ml Output Total 1125 ml Balance 2355 ml Intake Oral 480 ml IV Total 3000 ml Output Urine Total 1125 ml Daily Weight Change No General: Alert, Oriented X3, No Acute Distress HEENT: Atraumatic, EOMI Neck: Supple Lungs: Clear to Auscultation, Normal Air Movement Heart: Regular Rate, Normal S1, Normal S2 Abdomen: Soft, No Tenderness Extremities: No Edema, Normal Pulses Neuro: Other (expressive aphasia present from previous CVA) Psych/Mental Status: Mental Status NL Results Lab Laboratory Tests 09/23/22 12:23: Lactic Acid Level 1.85 09/23/22 13:50: Urine Color YELLOW, Urine Clarity CLEAR, Urine pH 5.5, Urine Specific [place] 1.025H, Urine Protein TRACEH, Urine Glucose (UA) TRACEH, Urine Ketones NEGATIVE, Urine Nitrite NEGATIVE, Urine Bilirubin NEGATIVE, Urine Urobilinogen 1.0, Urine Leukocyte Esterase NEGATIVE, Urine RBC (Auto) NEGATIVE, Urine RBC NONE, Urine WBC 0-2, Urine Squamous Epithelial Cells 0-2, Urine Crystals NONE, Urine Bacteria TRACE, Urine Casts NONE, Urine Mucus NEGATIVE, Urine Culture Indicated NO 09/23/22 16:18: Glucometer 156H 09/23/22 16:35: Bedside Blood Gas pH (LAB) 7.432H, Bedside Blood Gas pCO2 (LAB) 30.8L, Bedside Blood Gas pO2 (LAB) 84, Bedside Blood Gas HCO3 (LAB) 20.6L, POC Blood Gas Total CO2 Calc 22L, Bedside Bl Gas O2 Saturation (Calc) 97, Bedside Arterial Blood Base Excess -4L 09/23/22 21:17: Glucometer 177H 09/24/22 03:36: White Blood Count 13.9H, Red Blood Count 3.95L, Hemoglobin 11.5L, Hematocrit 34L , Mean Corpuscular Volume 85, Mean Corpuscular Hemoglobin 29, Mean Corpuscular Hemoglobin Concent 34, Red Cell Distribution Width 15.7H, Platelet Count 341, Mean Platelet Volume 11.1, Immature Granulocyte % (Auto) 1, Neutrophils (%) (Auto) 79H, Lymphocytes (%) (Auto) 6L, Monocytes (%) (Auto) 12, Eosinophils (%) (Auto) 2, Basophils (%) (Auto) 0, Neutrophils # (Auto) 10.9H, Lymphocytes # (Auto) 0.8L, Monocytes # (Auto) 1.7H, Eosinophils # (Auto) 0.3, Basophils # (Auto) 0.0, Immature Granulocyte # (Auto) 0.1, Sodium Level 139, Potassium Level 3.8, Chloride Level 110H, Carbon Dioxide Level 21, Anion Gap 8, Blood Urea Nitrogen 17, Creatinine 1.26, Estimat Glomerular Filtration Rate 58, B UN/Creatinine Ratio 13, Glucose Level 114H, Calcium Level 7.8L, Corrected Calcium 9.1, Phosphorus Level 1.8L, Magnesium Level 1.8, Total Bilirubin 0.4, Aspartate Amino Transf (AST/SGOT) 53H, Alanine Aminotransferase (ALT/SGPT) 63H, Alkaline Phosphatase 55, Total Protein 4.9L, Albumin 2.4L, Digoxin Level 1.56 09/24/22 06:10: Bedside Blood Gas pH (LAB) 7.403, Bedside Blood Gas pCO2 (LAB) 34.1L, Bedside Blood Gas pO2 (LAB) 61L, Bedside Blood Gas HCO3 (LAB) 21.3L, POC Blood Gas Total CO2 Calc 22L, Bedside Bl Gas O2 Saturation (Calc) 91L, Bedside Arterial Blood Base Excess -3L 09/24/22 06:11: Glucometer 104 09/24/22 10:49: Glucometer 225H Microbiology 09/23/22 MRSA Screen - Final, Complete MRSA not isolated Assessment/Plan Assessment/Plan Assess & Plan/Chief Complaint Fall at assisted living facility Generalized weakness Head CT negative for hemorrhage, did show possible worsening of area of encephalomalacia in L frontal lobe MRI pending to evaluate for acute on chronic ischemia Continue eliquis Preexisting deficits include aphasia and R sided weakness, no new deficits on exam PT/OT Hypotension Required norepi overnight currently stopped with blood pressure 113/49 at last check continue to monitor pressure and titrate norepi as needed Cards consulted appreciate recs, held CHF medication due to labile BP Contine IV fluids Echo showed normal systolic function with EF of 40-45% with grade 1 diastolic dysfunction Elevated digoxin level 2.4 down to 1.56 digoxin held no lethargy, confusion, N/V present continue to monitor for symptoms and treat supportively Elevated creatine kinase likely secondary to fall kidney function within normal limits continue IV fluids Elevated troponin likely type 2 related to hypotension 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 Diet- regular DVT- anticoagulated with eliquis Code- full JOSIE SANTOS DO 09/24/22 2005: Supervisory-Addendum Brief Verification & Attestation Participated in pt care: history, MDM, physical Personally performed: exam, history, MDM, supervision of care Care discussed with: Medical Student Procedures: n/a Results interpretation: Verified all documentation Verification and Attestation of Medical Student E/M Service A medical student performed and documented this service in my presence. I reviewed and verified all information documented by the medical student and made modifications to such information, when appropriate. I personally performed the physical exam and medical decision making. Josie Santos Sep 24, 2022,20:05 ERIN ELIZALDE Sep 24, 2022 11:10 JOSIE SANTOS DO Sep 24, 2022 20:05
--- NOTE | 2022-09-24 11:29 | Progress Note - Cardiology ---
Cardiology SOAP Progress Note Subjective: Sitting up in recliner at the bedside No c/o CP or SOB States he feels good Objective: I&O/Vital Signs 09/25/22 09/25/22 09/25/22 09/25/22 01:00 03:53 07:00 07:20 Temp 36.5 36.6 Pulse 60 62 60 61 Resp 18 18 B/P (MAP) 135/77 (96) 128/63 (84) Pulse Ox 95 94 O2 Delivery Nasal Cannula Nasal Cannula O2 Flow Rate 3.00 3.00 09/25/22 09/25/22 09/25/22 08:00 08:44 11:47 Temp 36.2 Pulse 63 Resp 18 B/P (MAP) 131/63 (85) Pulse Ox 95 94 95 O2 Delivery Nasal Cannula Nasal Cannula Nasal Cannula O2 Flow Rate 3.00 3.00 3.00 09/25/22 00:00 Intake Total 2690 ml Output Total 475 ml Balance 2215 ml Weight (Pounds): 190 Weight (Ounces): 2.0 Weight (Calculated Kilograms): 86.784570 Constitutional: AAO x 3, well-developed, well-nourished Respiratory: No accessory muscle use; chest expansion is symmetric, chest is bilaterally symmetric, other (fair to good, bilateral air entry that is diminished at the bases) Cardiovascular: regular rate-rhythm, S1 and S2, systolic murmur (soft RENATO at card base) Gastrointestional: No tender; soft; No guarding, No rebound; audible bowel soun ds Extremities: No clubbing, No cyanosis, No significant edema Neurologic/Psychiatric: oriented x 3, other (R leg and arm weakness) Results/Procedures: Labs Laboratory Tests 09/24/22 16:36: Glucometer 117H 09/24/22 20:46: Glucometer 127H 09/25/22 04:14: White Blood Count 12.4H, Red Blood Count 3.76L, Hemoglobin 10.9L, Hematocrit 32L , Mean Corpuscular Volume 86, Mean Corpuscular Hemoglobin 29, Mean Corpuscular Hemoglobin Concent 34, Red Cell Distribution Width 16.0H, Platelet Count 343, Mean Platelet Volume 11.0, Immature Granulocyte % (Auto) 1, Neutrophils (%) (Auto) 80H, Lymphocytes (%) (Auto) 5L, Monocytes (%) (Auto) 11, Eosinophils (%) (Auto) 3, Basophils (%) (Auto) 0, Neutrophils # (Auto) 9.8H, Lymphocytes # (Auto) 0.7L, Monocytes # (Auto) 1.4H, Eosinophils # (Auto) 0.3, Basophils # (Auto) 0.0, Immature Granulocyte # (Auto) 0.1, Sodium Level 137, Potassium Level 3.9, Chloride Level 113H, Carbon Dioxide Level 20L, Anion Gap 4L, Blood Urea Nitrogen 14, Creatinine 0.95, Estimat Glomerular Filtration Rate 81, BUN/Creatinine Ratio 15, Glucose Level 92, Calcium Level 7.6L, Corrected Calcium 9.0, Magnesium Level 1.9, Total Bilirubin 0.5, Aspartate Amino Transf (AST/SGOT) 40H, Alanine Aminotransferase (ALT/SGPT) 50, Alkaline Phosphatase 48, Total Protein 4.5L, Albumin 2.2L, Digoxin Level 1.23 09/25/22 11:44: Glucometer 128H Microbiology 09/23/22 MRSA Screen - Final, Complete MRSA not isolated A/P: Assessment: Altered mental status of undetermined etiology - managed by Dr Duran Chronic gen weakness and propensity to falls - managed by Dr Duran 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 Normal left ventricular size with hypokinesia in the inferior wall and inferolateral wall, ejection fraction 33% - Last card cath by Dr Rosenberg in July 2022: Left Main is free of obstructive disease. Left Anterior Descending is tortuous with mild disease nonobstructive disease. Left Circumflex isoccluded at the midportion. Right Coronary Artery is large dominant artery has multiple stents extending from the ostium till the bifurcation, patent stent with no obstructive disease Minimal troponin elevation, likely type 2 UT due to labile BP H/o ICD implantation - managed by Dr Rosenberg Paroxysmal atrial fibrillation - h/o cardioversion, currently on Eliquis and amiodarone. Carotid artery stenosis - status post left CEA in 2011 - CTA head and neck done June 2018 revealed right moderate ICA stenosis. 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
--- NOTE | 2022-09-24 12:07 | Tele-ICU Progress Note ---
Subjective Date Seen by a Provider: Sep 24, 2022 Time Seen by a Provider: 12:07 Subjective/Events-last exam (Tele-ICU Physician , Progress Note ) Service provided via interactive audio and video telecommunications E-CARE system to a patient admitted to ICU bed in [facility]. Patient is seen today due to persistent need of ICU care Available chart/ vitals / labs / Images reviewed Video assessment done using teleICU camera, rest of exam as per RN Discussed with RN Events overnight : Afebrile hemodynamically stable Respiratory - I/O = Drips: Pressors- no Hospital course: A/P Hypotension - suspected due to volume depletion - improved with IVF , off pressors now Altered mental status - CTH -acute vs chronic ischemia left frontal lobe -MRI pending - folow BS , no suspicios for infection A fib - rate controlled - On AC eliquis - as per bedside MDs Elevated dig level - improved with IVF - no arrhytmias S/p falls - as per bedide Mds DM - ISS CAD, h/o ICD, ICM - EF 40% - as per cards h/o CVA 2018 - residual R-sided arm and leg weakness and expressive aphasia 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 Discussed with RN to reach out if any questions or concerns Case and care daily discussed on multidisciplinary rounds ( RN, PharmD, Flume Tender , Respiratory Therapy, church worker ) A total of 20 minutes of critical care time was devoted to this patient today, required to treat and/or prevent further deterioration of critical care condition ( as above ) . I am remotely monitoring this patient from another state. I am unable to do the bedside exam, and history/physical and pertinent information is taken from other notes in the computer and bedside staff. Sepsis Event Evaluation Height, Weight, BMI Height: 5'7.00" Weight: 190lbs. 2.0oz. 86.064824vy; 28.39 BMI Method:Estimated Focused Exam Lactate Level 09/23/22 12:23: Lactic Acid Level 1.85 Exam Exam Patient acknowledged, consented, and participated in this virtual visit which was conducted using real time audio/video Vital Signs Date Time Temp Pulse Resp B/P (MAP) Pulse Ox O2 Delivery O2 Flow Rate FiO2 09/24/22 11:43 36.5 Nasal Cannula 3.00 09/24/22 09:00 64 18 113/49 (70) 94 Nasal Cannula 1.00 09/24/22 08:00 64 21 117/61 (79) 94 Nasal Cannula 1.00 09/24/22 08:00 36.8 Nasal Cannula 3.00 09/24/22 07:00 60 09/24/22 07:00 60 24 122/50 (74) 94 Nasal Cannula 1.00 09/24/22 06:38 60 21 113/55 (74) 91 Nasal Cannula 1.00 09/24/22 05:17 60 24 102/40 (60) 93 Nasal Cannula 1.00 09/24/22 04:34 60 24 98/44 (62) 94 Nasal Cannula 1.00 09/24/22 04:30 60 22 103/37 (59) 93 Nasal Cannula 1.00 09/24/22 04:00 60 24 103/41 (61) 93 Nasal Cannula 1.00 09/24/22 04:00 93 Nasal Cannula 1.00 09/24/22 03:00 60 19 106/43 (64) 94 Nasal Cannula 1.00 09/24/22 02:15 60 18 108/45 (66) 93 Nasal Cannula 1.00 09/24/22 01:00 60 09/24/22 01:00 60 22 111/44 (70) 94 Nasal Cannula 1.00 09/24/22 00:00 60 23 123/50 (84) 95 Nasal Cannula 1.00 09/23/22 23:00 60 20 122/50 (74) 94 Nasal Cannula 1.00 09/23/22 23:00 97 Nasal Cannula 1.00 09/23/22 22:00 61 36 117/45 (69) 95 Nasal Cannula 1.00 09/23/22 21:00 60 20 122/49 (73) 94 Nasal Cannula 1.00 09/23/22 20:00 36.9 09/23/22 20:00 96 Nasal Cannula 1.00 09/23/22 20:00 60 22 127/51 (76) 95 Nasal Cannula 1.00 09/23/22 19:30 67 17 126/49 (74) 94 Nasal Cannula 1.00 09/23/22 19:09 94 Nasal Cannula 1.00 09/23/22 19:01 64 09/23/22 19:00 62 13 95/41 (59) 93 Nasal Cannula 1.00 09/23/22 19:00 62 09/23/22 18:00 60 18 124/46 (72) 94 Nasal Cannula 1.00 09/23/22 17:00 60 21 133/52 (79) 95 Nasal Cannula 1.00 09/23/22 16:34 36.7 62 96 21 09/23/22 16:30 95 Nasal Cannula 1.00 09/23/22 16:00 60 20 126/55 (78) 91 Nasal Cannula 1.00 09/23/22 16:00 94 Nasal Cannula 1.00 09/23/22 16:00 36.2 09/23/22 15:00 61 16 122/53 (67) 90 Nasal Cannula 1.00 09/23/22 14:59 Nasal Cannula 1.00 09/23/22 14:00 60 16 129/51 (72) 90 Nasal Cannula 1.00 09/23/22 13:58 60 130/56 09/23/22 13:41 59 87/34 09/23/22 13:33 66 98/39 09/23/22 13:00 63 56 98/39 (58) 93 Nasal Cannula 1.00 09/23/22 12:48 60 I & O 09/24/22 07:00 Intake Total 1530 ml Output Total 1580 ml Balance -50 ml Height & Weight Height: 5'7.00" Weight: 190lbs. 2.0oz. 86.440677yw; 28.39 BMI Method:Estimated General Appearance: No Apparent Distress, WD/WN, Chronically ill HEENT: PERRL/EOMI, Pharynx Normal, Other (EDENTULOUS. SLIGHT RIGHT SIDE FACIAL DROOP. NO EXTERNAL EVIDENCE OF TRAUMA TO HEAD OR FACE. ) Neck: Normal Inspection, Non Tender Respiratory: Normal Breath Sounds, No Accessory Muscle Use, No Respiratory Distress Cardiovascular: Regular Rate, Rhythm, No Edema, No JVD, No Murmur, Normal Peripheral Pulses Capillary Refill: Less Than 3 Seconds Extremity: Normal Capillary Refill, No Calf Tenderness, No Pedal Edema, Other (MILD BILATERAL HIP TENDERNESS. ) Neurologic/Psychiatric: Alert, Normal Mood/Affect, Aphasia, Facial Droop, Motor Weakness (right sided weakness?), Other (NIH 5; MILD RIGHT FACIAL DROOP. BILATERAL ARM AND LEG STRENGTH IS EQUAL, BUT HAS LIMB ATAXIA IN BOTH UPPER ARMS--UNABLE TO DO [id number] WITH EITHER ARM. MILD APHASIA AND MILD DYSARTHRIA. PT DOES HAVE DIFFICULY FOLLOWING SOME SIMPLE COMMANDS. ) Skin: Normal Color, Warm/Dry Results Lab Laboratory Tests 09/23/22 02:48 09/24/22 03:36 Assessment/Plan Assessment/Plan 1 SHAKILA BLOUNT MD Sep 24, 2022 12:07
[2022-09-24] MEDS ORDERED: LOPE-175 PO (13:15)
[2022-09-24] MEDS ORDERED: GLIM1TAB4 PO (13:15)
--- NOTE | 2022-09-24 14:29 | Diagnostic Imaging Report ---
INDICATION: Dyspnea. COMPARISON: 09/23/2022 FINDINGS: Single frontal radiograph view the chest was obtained and demonstrates persistent cardiomegaly and pulmonary vascular congestion. There is also persistent diffuse prominence of the interstitial. There has been interval increase in consolidative airspace disease in the left base obscuring left hemidiaphragm. May be on the basis of effusion with associated atelectasis. No pneumothorax is seen on either side. Left-sided AICD is present. Osseous structures show no acute abnormalities. IMPRESSION: 1. Cardiomegaly with sequela CHF including interstitial pulmonary edema. 2. Increased consolidative airspace disease in the left lung base suspicious for effusion with atelectasis. Pneumonia is not entirely excluded. Follow-up is advised. Dictated by: Dictated on workstation # [id number]
--- NOTE | 2022-09-24 19:28 | Progress Note - Cardiology ---
Cardiology SOAP Progress Note Subjective: Gen weakness improving Focal weakness and dysphasia as before Shortness of breath improving No n/v/d No cp or palp or syncope Objective: I&O/Vital Signs 09/24/22 09/24/22 09/24/22 09/24/22 08:00 08:00 08:00 09:00 Temp 36.8 Pulse 64 64 Resp 21 18 B/P (MAP) 117/61 (79) 113/49 (70) Pulse Ox 97 94 94 O2 Delivery Nasal Cannula Nasal Cannula Nasal Cannula Nasal Cannula O2 Flow Rate 3.00 3.00 1.00 1.00 09/24/22 09/24/22 09/24/22 09/24/22 10:00 11:00 11:43 12:00 Temp 36.5 Pulse 60 60 Resp 22 18 B/P (MAP) 126/54 (78) 119/72 (88) Pulse Ox 94 94 95 O2 Delivery Nasal Cannula Nasal Cannula Nasal Cannula Nasal Cannula O2 Flow Rate 1.00 1.00 3.00 3.00 09/24/22 09/24/22 09/24/22 12:00 12:50 15:30 Temp 36.5 Pulse 63 65 60 Resp 23 18 B/P (MAP) 131/57 (81) 133/60 (84) Pulse Ox 94 95 O2 Delivery Nasal Cannula Nasal Cannula O2 Flow Rate 1.00 3.00 09/24/22 00:00 Intake Total 480 ml Output Total 1125 ml Balance -645 ml Weight (Pounds): 190 Weight (Ounces): 2.0 Weight (Calculated Kilograms): 86.022332 Constitutional: AAO x 3, well-developed, well-nourished Respiratory: No accessory muscle use; chest expansion is symmetric, chest is bilaterally symmetric, other (fair to good, bilateral air entry that is diminished at the bases) Cardiovascular: regular rate-rhythm, S1 and S2, systolic murmur (soft RENATO at card base) Gastrointestional: No tender; soft; No guarding, No rebound; audible bowel sounds Extremities: No clubbing, No cyanosis, No significant edema Neurologic/Psychiatric: oriented x 3, other (R leg and arm weakness) Results/Procedures: Labs Laboratory Tests 09/23/22 21:17: Glucometer 177H 09/24/22 03:36: White Blood Count 13.9H, Red Blood Count 3.95L, Hemoglobin 11.5L, Hematocrit 34L , Mean Corpuscular Volume 85, Mean Corpuscular Hemoglobin 29, Mean Corpuscular Hemoglobin Concent 34, Red Cell Distribution Width 15.7H, Platelet Count 341, Mean Platelet Volume 11.1, Immature Granulocyte % (Auto) 1, Neutrophils (%) (Auto) 79H, Lymphocytes (%) (Auto) 6L, Monocytes (%) (Auto) 12, Eosinophils (%) (Auto) 2, Basophils (%) (Auto) 0, Neutrophils # (Auto) 10.9H, Lymphocytes # (Auto) 0.8L, Monocytes # (Auto) 1.7H, Eosinophils # (Auto) 0.3, Basophils # (Auto) 0.0, Immature Granulocyte # (Auto) 0.1, Sodium Level 139, Potassium Level 3.8, Chloride Level 110H, Carbon Dioxide Level 21, Anion Gap 8, Blood Urea Nitrogen 17, Creatinine 1.26, Estimat Glomerular Filtration Rate 58, BUN/Creatinine Ratio 13, Glucose Level 114H, Calcium Level 7.8L, Corrected Calcium 9.1, Phosphorus Level 1.8L, Magnesium Level 1.8, Total Bilirubin 0.4, Aspartate Amino Transf (AST/SGOT) 53H, Alanine Aminotransferase (ALT/SGPT) 63H, Alkaline Phosphatase 55, Total Protein 4.9L, Albumin 2.4L, Digoxin Level 1.56 09/24/22 06:10: Bedside Blood Gas pH (LAB) 7.403, Bedside Blood Gas pCO2 (LAB) 34.1L, Bedside Blood Gas pO2 (LAB) 61L, Bedside Blood Gas HCO3 (LAB) 21.3L, POC Blood Gas Total CO2 Calc 22L, Bedside Bl Gas O2 Saturation (Calc) 91L, Bedside Arterial Blood Base Excess -3L 09/24/22 06:11: Glucometer 104 09/24/22 10:49: Glucometer 225H 09/24/22 16:36: Glucometer 117H Microbiology 09/23/22 MRSA Screen - Final, Complete MRSA not isolated Laboratory Tests 09/23/22 02:48 09/24/22 03:36 A/P: Assessment: Altered mental status of undetermined etiology - managed by Dr Duran Chronic gen weakness and propensity to falls - managed by Dr Duran 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 Normal left ventricular size with hypokinesia in the inferior wall and inferolateral wall, ejection fraction 33% - Last card cath by Dr Rosenberg in July 2022: Left Main is free of obstructive disease. Left Anterior Descending is tortuous with mild disease nonobstructive disease. Left Circumflex isoccluded at the midportion. 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 Carotid artery stenosis - status post left CEA in 2011 - CTA head and neck done June 2018 revealed right moderate ICA stenosis. 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 Begin with low-dose beta-jarret * Restart home dose of Amiodarone * Gently hydrate * Monitor labs * Advised to continue to refrain from smoking BIANCA DAVIS MD FACP FAC CCDS Sep 24, 2022 19:28
[2022-09-24] MEDS: AMIODARONE 200 MG (CORDARONE) TAB PO SCH (20:53)
[2022-09-25] VITALS (7 sets, daily range): BP systolic 117–135; BP diastolic 56–77
[2022-09-25 04:44] LABS: BASOPHILS % (AUTO) 0 % (0-10); EOSINOPHILS # (AUTO) 0.3 10^3/uL (0.0-0.3); EOSINOPHILS % (AUTO) 3 % (0-10); HEMATOCRIT 32 % (40-54); HEMOGLOBIN 10.9 g/dL (13.3-17.7); LYMPHOCYTES # (AUTO) 0.7 10^3/uL (1.0-4.0); LYMPHOCYTES % (AUTO) 5 % (12-44); MEAN CORPUSCULAR HEMOGLOBIN 29 pg (25-34); MEAN CORPUSCULAR HGB CONC 34 g/dL (32-36); MEAN CORPUSCULAR VOLUME 86 fL (80-99); MONOCYTES # (AUTO) 1.4 10^3/uL (0.0-1.0); MONOCYTES % (AUTO) 11 % (0-12); NEUTROPHILS # (AUTO) 9.8 10^3/uL (1.8-7.8); NEUTROPHILS % (AUTO) 80 % (42-75); PLATELET COUNT 343 10^3/uL (130-400); WHITE BLOOD COUNT 12.4 10^3/uL (4.3-11.0)
[2022-09-25 05:03] LABS: ALBUMIN 2.2 GM/DL (3.2-4.5); BILIRUBIN,TOTAL 0.5 MG/DL (0.1-1.0); CALCIUM 7.6 MG/DL (8.5-10.1); CREATININE SERUM 0.95 MG/DL (0.60-1.30); MAGNESIUM 1.9 MG/DL (1.6-2.4); POTASSIUM 3.9 MMOL/L (3.6-5.0); TOTAL PROTEIN 4.5 GM/DL (6.4-8.2)
[2022-09-25] MEDS: inSUlin ASPART (NovoLOG) 1 UNIT/0.01 ML (CHARGE PER UNIT) SC SCH ×4 (05:08→20:39)
[2022-09-25] MEDS: DOCUSATE SODIUM 100 MG (COLACE) CAP PO SCH ×2 (08:52→20:39)
[2022-09-25] MEDS: ASPIRIN 81 MG CHEW (CHILDREN'S ASA) PO SCH (08:52)
[2022-09-25] MEDS: APIXABAN 5 MG (ELIQUIS) TABLET PO SCH ×2 (08:52→20:39)
[2022-09-25] MEDS: AMIODARONE 200 MG (CORDARONE) TAB PO SCH ×2 (08:52→20:39)
[2022-09-25] MEDS: SENNOSIDES 8.6 MG (SENOKOT) TAB PO SCH ×2 (08:52→20:39)
[2022-09-25] MEDS: NS IV 1000 ML 1,000 ML IV SCH (08:52)
--- NOTE | 2022-09-25 10:31 | Physical Therapy Daily Note ---
PT Daily Note-Current Subjective Patient agrees to PT. Pain Section J - Health Conditions 1. Rarely or not at all 2. Occasionally 3. Frequently 4. Almost constantly 8. Unable to answer Pain Effect on Sleep: 1 Pain Interference with Therapy: 1 Pain Interference w/Day-to-Day: 1 Mental Status Attachments: Oxygen, Retana Catheter, IV Transfers SCALE: Activities may be completed with or without assistive devices. 4-Eohdotycps-wwtwubf completes the activity by him/herself with no assistance from a helper. 5-Set-up or Clean-up Assistance-helper sets up or cleans up; patient completes activity. [place] assists only prior to or following the activity. 4-Supervision or Touching Assistance-helper provides verbal cues and/or touching/steadying and/or contact guard assistance as patient completes activity. Assistance may be provided throughout the activity or intermittently. 3-Partial/Moderate Assistance-helper does LESS THAN HALF the effort. [place] l ifts, holds or supports trunk or limbs, but provides less than half the effort. 2-Substantial/Maximal Assistance-helper does MORE THAN HALF the effort. [place] lifts or holds trunk or limbs and provides more than half the effort. 3-Ecmfmmbua-lfxfjz does ALL the effort. Patient does none of the effort to complete the activity. Or, the assistance of 2 or more helpers is required for t he patient to complete the activity. If activity was not attempted, code reason: 7-Patient Refused. 9-Not Applicable-not attempted and the patient did not perform the activity before the current illness, exacerbation or injury. 10-Not Attempted due to Environmental Limitations-(lack of equipment, weather restraints, etc.). 88-Not Attempted due to Medical Conditions or Safety Concerns. Lying to Sitting/Side of Bed(Q: 4 Sit to Stand (QC): 4 Chair/Rwi-fm-Teezf Xfer(QC): 4 Gait Training Distance: 15' Walk 10 feet (QC): 4 Gait Assistive Device: FWW slow, step to gait sequence Exercises Seated Therapy Exercises: Long arc quads, Hip flexion Seated Reps: 15 Assessment Patient tolerated increase in activity on this date. Patient is up in recliner with needs met. Continue to increase activity as tolerated by patient. PT Calibration Specialist Goals Retirement Goals PT Calibration Specialist Goals Time Frame: Oct 06, 2022 Roll Left & Right (QC): 4 Sit to Lying (QC): 4 Lying-Sitting on Side/Bed(QC): 4 Sit to Stand (QC): 4 Chair/Qbv-df-Soxks Xfer(QC): 4 Toilet Transfer (QC): 4 Walk 10 feet (QC): 4 Walk 50ft with 2 Turns (QC): 4 PT Plan Treatment/Plan Treatment Plan: Continue Plan of Care Treatment Plan: Bed Mobility, Education, Functional Activity Kristine, Functional Strength, Gait, Safety, Therapeutic Exercise, Transfers Treatment Duration: Oct 06, 2022 Frequency: 5 times per week Estimated Hrs Per Day: .25 hour per day Time Time In: 920 Time Out: 936 DATE: Sep 25, 2022 Total Billed Treatment Time: 16 Total Billed Treatment 1 visit FA 16 min CRISTIAN SAUCEDA PT Sep 25, 2022 10:31
--- NOTE | 2022-09-25 10:41 | Progress Note ---
ERIN ELIZALDE 09/25/22 1041: Subjective Date Seen by a Provider: Sep 25, 2022 Time Seen by a Provider: 07:45 Subjective/Events-last exam Patient seen and examined at bedside this morning. He reports improvement of his generalized weakness. He is eating breakfast without N/V. Denies chest pain, sh ortness of breath, fever/chills. He has not had a BM but was reporting some diarrhea prior to hospitalization that is resolved. Review of Systems General: No Chills, No Night Sweats HEENT: No Head Aches, No Visual Changes Pulmonary: No Dyspnea, No Cough Cardiovascular: No: Chest Pain, Palpitations Gastrointestinal: No: Nausea, Vomiting, Abdominal Pain Genitourinary: No Dysuria, No Hematuria Musculoskeletal: other (complaining of some hip pain due to discomfort) Neurological: Weakness; No: Change in speech, Confusion Focused Exam Lactate Level 09/23/22 12:23: Lactic Acid Level 1.85 Objective Exam Last Set of Vital Signs Vital Signs Date Time Temp Pulse Resp B/P (MAP) Pulse Ox O2 Delivery O2 Flow Rate FiO2 09/25/22 08:44 94 Nasal Cannula 3.00 09/25/22 07:20 36.6 61 18 128/63 (84) 09/23/22 16:34 21 Capillary Refill : Less Than 3 Seconds I&O Intake and Output 09/25/22 00:00 Intake Total 3140 ml Output Total 1030 ml Balance 2110 ml Intake Oral 940 ml IV Total 2200 ml Output Urine Total 1030 ml General: Alert, Oriented X3, Cooperative HEENT: Atraumatic, EOMI Neck: Supple Lungs: Clear to Auscultation, Normal Air Movement Heart: Regular Rate, Normal S1, Normal S2 Abdomen: Soft, No Tenderness Extremities: No Cyanosis, No Edema Neuro: Other (baseline r sided weakness and aphasia) Psych/Mental Status: Mental Status NL, Mood NL Results Lab Laboratory Tests 09/24/22 10:49: Glucometer 225H 09/24/22 16:36: Glucometer 117H 09/24/22 20:46: Glucometer 127H 09/25/22 04:14: White Blood Count 12.4H, Red Blood Count 3.76L, Hemoglobin 10.9L, Hematocrit 32L , Mean Corpuscular Volume 86, Mean Corpuscular Hemoglobin 29, Mean Corpuscular Hemoglobin Concent 34, Red Cell Distribution Width 16.0H, Platelet Count 343, Mean Platelet Volume 11.0, Immature Granulocyte % (Auto) 1, Neutrophils (%) (Auto) 80H, Lymphocytes (%) (Auto) 5L, Monocytes (%) (Auto) 11, Eosinophils (%) (Auto) 3, Basophils (%) (Auto) 0, Neutrophils # (Auto) 9.8H, Lymphocytes # (Auto) 0.7L, Monocytes # (Auto) 1.4H, Eosinophils # (Auto) 0.3, Basophils # (Au to) 0.0, Immature Granulocyte # (Auto) 0.1, Sodium Level 137, Potassium Level 3.9, Chloride Level 113H, Carbon Dioxide Level 20L, Anion Gap 4L, Blood Urea Nitrogen 14, Creatinine 0.95, Estimat Glomerular Filtration Rate 81, BUN/Creatinine Ratio 15, Glucose Level 92, Calcium Level 7.6L, Corrected Calcium 9.0, Magnesium Level 1.9, Total Bilirubin 0.5, Aspartate Amino Transf (AST/SGOT) 40H, Alanine Aminotransferase (ALT/SGPT) 50, Alkaline Phosphatase 48, Total Protein 4.5L, Albumin 2.2L, Digoxin Level 1.23 Microbiology 09/23/22 MRSA Screen - Final, Complete MRSA not isolated Assessment/Plan Assessment/Plan Assess & Plan/Chief Complaint Fall at assisted living facility Generalized weakness Head CT negative for hemorrhage, did show possible worsening of area of encephalomalacia in L frontal lobe MRI pending to evaluate for acute on chronic ischemia Continue eliquis 5mg BID Preexisting deficits include aphasia and R sided weakness, no new deficits on exam PT/OT Hypotension Required norepi in ICU, none for last 24 hrs Blood pressure holding stable continue to monitor pressure Cards consulted appreciate recs, initially held CHF medication due to labile BP DC Iv fluids, encourage PO intake Echo showed normal systolic function with EF of 40-45% with grade 1 diastolic dysfunction Cards restarted amiodarone and metoprolol Elevated digoxin level 2.4 down to 1.23 digoxin held no lethargy, confusion, N/V present continue to monitor for symptoms and treat supportively Elevated creatine kinase likely secondary to fall kidney function within normal limits continue IV fluids Elevated troponin likely type 2 related to hypotension 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 Diet- carb consistent DVT- anticoagulated with eliquis Code- full JOSIE SANTOS DO 09/25/22 1934: Objective Exam General: Alert, Oriented X3, Cooperative, No Acute Distress Lungs: Clear to Auscultation, Normal Air Movement Heart: Regular Rate, Normal S1, Normal S2, No Murmurs Psych/Mental Status: Mental Status NL, Mood NL Supervisory-Addendum Brief Verification & Attestation Participated in pt care: history, MDM, physical Personally performed: exam, history, MDM, supervision of care Care discussed with: Medical Student Procedures: n/a Results interpretation: Verified all documentation Verification and Attestation of Medical Student E/M Service A medical student performed and documented this service in my presence. I reviewed and verified all information documented by the medical student and made modifications to such information, when appropriate. I personally performed the physical exam and medical decision making. Josie Santos, Sep 25, 2022,19:33 ERIN ELIZALDE Sep 25, 2022 10:41 JOSIE SANTOS DO Sep 25, 2022 19:34
--- NOTE | 2022-09-25 12:15 | Progress Note - Cardiology ---
Cardiology SOAP Progress Note Subjective: No new c/o No c/o CP, SOB or palpitations Objective: I&O/Vital Signs 09/25/22 09/25/22 09/25/22 09/25/22 01:00 03:53 07:00 07:20 Temp 36.5 36.6 Pulse 60 62 60 61 Resp 18 18 B/P (MAP) 135/77 (96) 128/63 (84) Pulse Ox 95 94 O2 Delivery Nasal Cannula Nasal Cannula O2 Flow Rate 3.00 3.00 09/25/22 09/25/22 09/25/22 08:00 08:44 11:47 Temp 36.2 Pulse 63 Resp 18 B/P (MAP) 131/63 (85) Pulse Ox 95 94 95 O2 Delivery Nasal Cannula Nasal Cannula Nasal Cannula O2 Flow Rate 3.00 3.00 3.00 09/25/22 00:00 Intake Total 2690 ml Output Total 475 ml Balance 2215 ml Weight (Pounds): 190 Weight (Ounces): 2.0 Weight (Calculated Kilograms): 86.173087 Constitutional: AAO x 3, well-developed, well-nourished Respiratory: No accessory muscle use; chest expansion is symmetric, chest is bilaterally symmetric, other (fair to good, bilateral air entry that is diminished at the bases) Cardiovascular: regular rate-rhythm, S1 and S2, systolic murmur (soft RENATO at card base) Gastrointestional: No tender; soft; No guarding, No rebound; audible bowel sounds Extremities: No clubbing, No cyanosis, No significant edema Neurologic/Psychiatric: oriented x 3, other (R leg and arm weakness) Results/Procedures: Labs Laboratory Tests 09/24/22 16:36: Glucometer 117H 09/24/22 20:46: Glucometer 127H 09/25/22 04:14: White Blood Count 12.4H, Red Blood Count 3.76L, Hemoglobin 10.9L, Hematocrit 32L , Mean Corpuscular Volume 86, Mean Corpuscular Hemoglobin 29, Mean Corpuscular Hemoglobin Concent 34, Red Cell Distribution Width 16.0H, Platelet Count 343, Mean Platelet Volume 11.0, Immature Granulocyte % (Auto) 1, Neutrophils (%) (Auto) 80H, Lymphocytes (%) (Auto) 5L, Monocytes (%) (Auto) 11, Eosinophils (%) (Auto) 3, Basophils (%) (Auto) 0, Neutrophils # (Auto) 9.8H, Lymphocytes # (Auto) 0.7L, Monocytes # (Auto) 1.4H, Eosinophils # (Auto) 0.3, Basophils # (Auto) 0.0, Immature Granulocyte # (Auto) 0.1, Sodium Level 137, Potassium Level 3.9, Chloride Level 113H, Carbon Dioxide Level 20L, Anion Gap 4L, Blood Urea Nitrogen 14, Creatinine 0.95, Estimat Glomerular Filtration Rate 81, BUN/Creatinine Ratio 15, Glucose Level 92, Calcium Level 7.6L, Corrected Calcium 9.0, Magnesium Level 1.9, Total Bilirubin 0.5, Aspartate Amino Transf (AST/SGOT) 40H, Alanine Aminotransferase (ALT/SGPT) 50, Alkaline Phosphatase 48, Total Protein 4.5L, Albumin 2.2L, Digoxin Level 1.23 09/25/22 11:44: Glucometer 128H Microbiology 09/23/22 MRSA Screen - Final, Complete MRSA not isolated Laboratory Tests 09/24/22 03:36 09/25/22 04:14 A/P: Assessment: Altered mental status of undetermined etiology - managed by Dr Duran Chronic gen weakness and propensity to falls - managed by Dr Duran 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 Normal left ventricular size with hypokinesia in the inferior wall and inferolateral wall, ejection fraction 33% - Last card cath by Dr Rosenberg in July 2022: Left Main is free of obstructive disease. Left Anterior Descending is tortuous with mild disease nonobstructive disease. Left Circumflex isoccluded at the midportion. Right Coronary Artery is large dominant artery has multiple stents extending from the ostium till the bifurcation, patent stent with no obstructive disease Minimal troponin elevation, likely type 2 [place] due to labile BP H/o ICD implantation - managed by Dr Rosenberg Paroxysmal atrial fibrillation - h/o cardioversion, currently on Eliquis and amiodarone. Carotid artery stenosis - status post left CEA in 2011 - CTA head and neck done June 2018 revealed right moderate ICA stenosis. 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 Tolerating low-dose beta-jarret. Add low dose ADARSH back in. * Continue amiodarone * Gently hydrate * Monitor labs * Advised to continue to refrain from smoking PINEDA ROSE Sep 25, 2022 12:15
--- NOTE | 2022-09-25 12:27 | Diagnostic Imaging Report ---
CLINICAL INDICATION: Patient is having altered mental status. EXAM: MRI of the brain performed without IV contrast. Sequences include axial DWI, ADC map, axial T1, axial T2, axial FLAIR, axial gradient echo, and sagittal T1. COMPARISON: Head CT without contrast dated 09/23/2022. Head CT without contrast dated 03/27/2018. FINDINGS: There is no evidence of acute cerebral infarct, intracranial hemorrhage, or gross mass effect. There is diffuse brain parenchymal volume loss which has progressed compared to the prior head CT dated 03/27/2018. Stable chronic infarct involving the posterior left frontal/parietal region with encephalomalacia. There are multiple focal patchy areas of high T2 signal white matter changes involving both cerebral hemispheres, likely related to chronic small vessel ischemic disease. There is no significant midline shift or herniation. Visualized [place] vascular structures are unremarkable. The pituitary gland, sella, and suprasellar regions are unremarkable as visualized. There is no evidence of hydrocephalus. The basal cisterns are unremarkable. The skull, extracranial soft tissue, and orbits are unremarkable. There is minimal mucosal thickening involving the right maxillary sinus. Temporal bones show no significant abnormality. IMPRESSION: 1.: There is no acute intracranial process. 2: Stable chronic cerebral infarct involving the left cerebral hemisphere. 3: There is significant progression of diffuse brain parenchymal volume loss compared to the prior head CT dated 03/27/2018. Dictated by: Dictated on workstation # [id number]
[2022-09-25] MEDS ORDERED: ENALAPRIL 2.5 MG (VASOTEC) TAB PO NR (12:30)
--- NOTE | 2022-09-25 13:34 | Occupational Ther Daily Note ---
OT Current Status-Daily Note Subjective Patient completing meal, agrees to OT intervention for strengthening. Mental Status/Objective Patient Orientation: Person, Time, Situation (patient reports return approximately 12:[address] of head, confirmed per chart) ADL-Treatment Therapy Code Descriptions/Definitions Functional [place] Measure: 0=Not Assessed/NA 4=Minimal Assistance 1=Total Assistance 5=Supervision or Setup 2=Maximal Assistance 6=Modified [place] 3=Moderate Assistance 7=Complete IndependenceSCALE: Activities may be completed with or without assistive devices. 5-Vtotztqttk-hwtfjad completes the activity by him/herself with no assistance from a helper. 5-Set-up or Clean-up Assistance-helper sets up or cleans up; patient completes activity. Kinde assists only prior to or following the activity. 4-Supervision or Touching Assistance-helper provides verbal cues and/or touching/steadying and/or contact guard assistance as patient completes activity. Assistance may be provided throughout the activity or intermittently. 3-Partial/Moderate Assistance-helper does LESS THAN HALF the effort. Kinde lifts, holds or supports trunk or limbs, but provides less than half the effort. 2-Substantial/Maximal Assistance-helper does MORE THAN HALF the effort. Kinde lifts or holds trunk or limbs and provides more than half the effort. 8-Cvkobzajg-kvbyka does ALL the effort. Patient does none of the effort to complete the activity. Or, the assistance of 2 or more helpers is required for the patient to complete the activity. If activity was not attempted, code reason: 7-Patient Refused. 9-Not Applicable-not attempted and the patient did not perform the activity before the current illness, exacerbation or injury. 10-Not Attempted due to Environmental Limitations-(lack of equipment, weather restraints, etc.). 88-Not Attempted due to Medical Conditions or Safety Concerns. Eating (QC): 6 Oral Hygiene (QC): 6 (not wearing bottom denture during meal OT supplied oral care supplies.) Other Treatment Patient performed modified push ups and sits up to strengthen CORE and BUE for ADLS, posture and transfers Education OT Patient Education: Exercise program, Progress toward Goal/Update tx plan, Purpose of tx/functional activities, Reviewed precautions, Rehab process, Safety issues Teaching Recipient: Patient Teaching Methods: Demonstration, Discussion Response to Teaching: Reinforcement Needed OT Medical Instrument Technician Goals Half-Way Goals Eating (QC): 6 Oral Hygiene (QC): 6 Toileting Hygiene (QC): 4 Shower/Bathe Self (QC): 4 Upper Body Dressing (QC): 4 Lower Body Dressing (QC): 4 On/Off Footwear (QC): 4 1=Demonstrate adherence to instructed precautions during ADL tasks. 2=Patient will verbalize/demonstrate understanding of assistive devices/modifications for ADL. 3=Patient will improve strength/tolerance for activity to enable patient to perform ADL's. OT Education/Plan Problem List/Assessment Assessment: Decreased Activ Tolerance, Decreased Safety Aware, Decreased UE Strength, Impaired Self-Care Skills Discharge Recommendations Plan/Recommendations: Continue POC Treatment Plan/Plan of Care Patient would benefit from OT for education, treatment and training to promote independence in ADL's, mobility, safety and/or upper extremity function for ADL's. Plan of Care: ADL Retraining, Caregiver Training, Concurrent Therapy, Functional Mobility, Group Exercise/Act as Ind, UE Funct Exercise/Act, UE Neuromus Re-Ed/Coord Treatment Duration: Sep 28, 2022 Frequency: 3 times per week (3-5 times per week) Rehab Potential: Guarded Patient request warm blanket and a nap following OT session, all needs met Time Start Time: 13:01 Stop Time: 13:17 DATE: Sep 25, 2022 Total Time Billed (hr/min): 16 Billed Treatment Time EX 16 min CATARINO ARTHUR OT Sep 25, 2022 13:34
--- NOTE | 2022-09-25 18:05 | Progress Note - Cardiology ---
Cardiology SOAP Progress Note Subjective: No new symptoms Focal weakness and dysphasia as before Denies shortness of breath at rest No n/v/d No cp or palp or syncope Objective: I&O/Vital Signs 09/25/22 09/25/22 09/25/22 09/25/22 07:00 07:20 08:00 08:44 Temp 36.6 Pulse 60 61 Resp 18 B/P (MAP) 128/63 (84) Pulse Ox 94 95 94 O2 Delivery Nasal Cannula Nasal Cannula Nasal Cannula O2 Flow Rate 3.00 3.00 3.00 09/25/22 09/25/22 09/25/22 11:47 13:00 15:25 Temp 36.2 36.1 Pulse 63 63 60 Resp 18 17 B/P (MAP) 131/63 (85) 125/58 (80) Pulse Ox 95 94 O2 Delivery Nasal Cannula Nasal Cannula O2 Flow Rate 3.00 3.00 09/25/22 00:00 Intake Total 2690 ml Output Total 475 ml Balance 2215 ml Weight (Pounds): 190 Weight (Ounces): 2.0 Weight (Calculated Kilograms): 86.303886 Constitutional: AAO x 3, well-developed, well-nourished Respiratory: No accessory muscle use; chest expansion is symmetric, chest is bilaterally symmetric, other (fair to good, bilateral air entry that is diminished at the bases) Cardiovascular: regular rate-rhythm, S1 and S2, systolic murmur (soft RENATO at card base) Gastrointestional: No tender; soft; No guarding, No rebound; audible bowel sounds Extremities: No clubbing, No cyanosis, No significant edema Neurologic/Psychiatric: oriented x 3, other (R leg and arm weakness) Results/Procedures: Labs Laboratory Tests 09/24/22 20:46: Glucometer 127H 09/25/22 04:14: White Blood Count 12.4H, Red Blood Count 3.76L, Hemoglobin 10.9L, Hematocrit 32L , Mean Corpuscular Volume 86, Mean Corpuscular Hemoglobin 29, Mean Corpuscular Hemoglobin Concent 34, Red Cell Distribution Width 16.0H, Platelet Count 343, Mean Platelet Volume 11.0, Immature Granulocyte % (Auto) 1, Neutrophils (%) (Auto) 80H, Lymphocytes (%) (Auto) 5L, Monocytes (%) (Auto) 11, Eosinophils (%) (Auto) 3, Basophils (%) (Auto) 0, Neutrophils # (Auto) 9.8H, Lymphocytes # (Auto) 0.7L, Monocytes # (Auto) 1.4H, Eosinophils # (Auto) 0.3, Basophils # (Auto) 0.0, Immature Granulocyte # (Auto) 0.1, Sodium Level 137, Potassium Level 3.9, Chloride Level 113H, Carbon Dioxide Level 20L, Anion Gap 4L, Blood Urea Nitrogen 14, Creatinine 0.95, Estimat Glomerular Filtration Rate 81, BUN/Creatinine Ratio 15, Glucose Level 92, Calcium Level 7.6L, Corrected Calcium 9.0, Magnesium Level 1.9, Total Bilirubin 0.5, Aspartate Amino Transf (AST/SGOT) 40H, Alanine Aminotransferase (ALT/SGPT) 50, Alkaline Phosphatase 48, Total Protein 4.5L, Albumin 2.2L, Digoxin Level 1.23 09/25/22 11:44: Glucometer 128H 09/25/22 15:28: Glucometer 151H Microbiology 09/23/22 MRSA Screen - Final, Complete MRSA not isolated Laboratory Tests 09/24/22 03:36 09/25/22 04:14 A/P: Assessment: Altered mental status of undetermined etiology - managed by Dr Duran Chronic gen weakness and propensity to falls - managed by Dr Duran 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 Normal left ventricular size with hypokinesia in the inferior wall and inferolateral wall, ejection fraction 33% - Last card cath by Dr Rosenberg in July 2022: Left Main is free of obstructive disease. Left Anterior Descending is tortuous with mild disease nonobstructive disease. Left Circumflex isoccluded at the midportion. Right Coronary Artery is large dominant artery has multiple stents extending from the ostium till the bifurcation, patent stent with no obstructive disease Minimal troponin elevation, likely type 2 [place] due to labile BP H/o ICD implantation - managed by Dr Rosenberg Paroxysmal atrial fibrillation - h/o cardioversion, currently on Eliquis and amiodarone. Carotid artery stenosis - status post left CEA in 2011 - CTA head and neck done June 2018 revealed right moderate ICA stenosis. 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 Tolerating low-dose beta-jarret. Add low dose ADARSH-inhib back in. * Continue amiodarone * Gently hydrate * Monitor labs * Advised to continue to refrain from smoking BIANCA DAVIS MD FACP FAC CCDS Sep 25, 2022 18:05
[2022-09-25] MEDS: ACETAMINOPHEN 325 MG TABLET PO PRN (20:43)
[2022-09-26] MEDS: ACETAMINOPHEN 325 MG TABLET PO PRN ×2 (03:01→20:48)
[2022-09-26 03:09] VITALS: BP 128/60
[2022-09-26 05:23] LABS: BASOPHILS % (AUTO) 0 % (0-10); EOSINOPHILS # (AUTO) 0.4 10^3/uL (0.0-0.3); EOSINOPHILS % (AUTO) 3 % (0-10); HEMATOCRIT 32 % (40-54); HEMOGLOBIN 10.7 g/dL (13.3-17.7); LYMPHOCYTES # (AUTO) 0.7 10^3/uL (1.0-4.0); LYMPHOCYTES % (AUTO) 5 % (12-44); MEAN CORPUSCULAR HEMOGLOBIN 29 pg (25-34); MEAN CORPUSCULAR HGB CONC 34 g/dL (32-36); MEAN CORPUSCULAR VOLUME 85 fL (80-99); MEAN PLATELET VOLUME 10.5 fL (9.0-12.2); MONOCYTES # (AUTO) 1.2 10^3/uL (0.0-1.0); MONOCYTES % (AUTO) 10 % (0-12); NEUTROPHILS % (AUTO) 80 % (42-75); PLATELET COUNT 334 10^3/uL (130-400); WHITE BLOOD COUNT 12.4 10^3/uL (4.3-11.0)
[2022-09-26 05:42] LABS: ALBUMIN 2.2 GM/DL (3.2-4.5); BILIRUBIN,TOTAL 0.7 MG/DL (0.1-1.0); CALCIUM 7.6 MG/DL (8.5-10.1); CREATININE SERUM 0.87 MG/DL (0.60-1.30); MAGNESIUM 1.8 MG/DL (1.6-2.4); TOTAL PROTEIN 4.5 GM/DL (6.4-8.2)
[2022-09-26] MEDS: inSUlin ASPART (NovoLOG) 1 UNIT/0.01 ML (CHARGE PER UNIT) SC SCH ×4 (05:43→20:48)
[2022-09-26 07:19] VITALS: BP 116/56
[2022-09-26] MEDS ORDERED: ENALAPRIL 2.5 MG (VASOTEC) TAB PO SCH (09:00)
[2022-09-26] MEDS: SENNOSIDES 8.6 MG (SENOKOT) TAB PO SCH ×2 (09:03→20:48)
[2022-09-26] MEDS: DOCUSATE SODIUM 100 MG (COLACE) CAP PO SCH ×2 (09:03→20:48)
[2022-09-26] MEDS: ASPIRIN 81 MG CHEW (CHILDREN'S ASA) PO SCH (09:07)
[2022-09-26] MEDS: AMIODARONE 200 MG (CORDARONE) TAB PO SCH ×2 (09:07→20:48)
[2022-09-26] MEDS: APIXABAN 5 MG (ELIQUIS) TABLET PO SCH ×2 (09:07→20:48)
--- NOTE | 2022-09-26 10:24 | Occupational Ther Daily Note ---
OT Current Status-Daily Note Subjective Patient up on BS on OT arrival, Patient agreeable for OT intervention for toileting, hygiene and transfers Mental Status/Objective Patient Orientation: Person, Situation Attachments: Retana Catheter, Oxygen ADL-Treatment Patient requires repeat instruction in increased volume d/t hearing difficulty. Gait belt placed on patient and FWW position for transfers iuse and pivot to recliner following toileting. Therapy Code Descriptions/Definitions Functional [place] Measure: 0=Not Assessed/NA 4=Minimal Assistance 1=Total Assistance 5=Supervision or Setup 2=Maximal Assistance 6=Modified [place] 3=Moderate Assistance 7=Complete IndependenceSCALE: Activities may be completed with or without assistive devices. 6-Jiowfijhdf-nyuutww completes the activity by him/herself with no assistance from a helper. 5-Set-up or Clean-up Assistance-helper sets up or cleans up; patient completes activity. [place] assists only prior to or following the activity. 4-Supervision or Touching Assistance-helper provides verbal cues and/or touching/steadying and/or contact guard assistance as patient completes activity. Assistance may be provided throughout the activity or intermittently. 3-Partial/Moderate Assistance-helper does LESS THAN HALF the effort. [place] lifts, holds or supports trunk or limbs, but provides less than half the effort. 2-Substantial/Maximal Assistance-helper does MORE THAN HALF the effort. [place] lifts or holds trunk or limbs and provides more than half the effort. 7-Bqvqkaecl-ojpsjb does ALL the effort. Patient does none of the effort to complete the activity. Or, the assistance of 2 or more helpers is required for the patient to complete the activity. If activity was not attempted, code reason: 7-Patient Refused. 9-Not Applicable-not attempted and the patient did not perform the activity before the current illness, exacerbation or injury. 10-Not Attempted due to Environmental Limitations-(lack of equipment, weather restraints, etc.). 88-Not Attempted due to Medical Conditions or Safety Concerns. Eating (QC): 6 Oral Hygiene (QC): 5 Upper Body Dressing (QC): 3 Lower Body Dressing (QC): 2 On/Off Footwear: 2 Toileting Hygiene (QC): 2 Toilet Transfer (QC): 2 Education OT Patient Education: Correct positioning, Exercise program, Modified ADL techniques, Progress toward Goal/Update tx plan, Purpose of tx/functional activities, Reviewed precautions, Rehab process, Safety issues, Transfer techniques Teaching Recipient: Patient Teaching Methods: Demonstration Response to Teaching: Reinforcement Needed OT Correction Goals Correction Goals Eating (QC): 6 Oral Hygiene (QC): 6 Toileting Hygiene (QC): 4 Shower/Bathe Self (QC): 4 Upper Body Dressing (QC): 4 Lower Body Dressing (QC): 4 On/Off Footwear (QC): 4 1=Demonstrate adherence to instructed precautions during ADL tasks. 2=Patient will verbalize/demonstrate understanding of assistive devices/m odifications for ADL. 3=Patient will improve strength/tolerance for activity to enable patient to perform ADL's. OT Education/Plan Problem List/Assessment Assessment: Decreased Activ Tolerance, Decreased Safety Aware, Decreased UE Strength, Impaired Bed Mobility, Impaired Cognition, Impaired Coordination, Impaired Funct Balance, Impaired Self-Care Skills Discharge Recommendations Plan/Recommendations: Continue POC Treatment Plan/Plan of Care Patient would benefit from OT for education, treatment and training to promote independence in ADL's, mobility, safety and/or upper extremity function for ADL's. Plan of Care: ADL Retraining, Caregiver Training, Concurrent Therapy, Functional Mobility, Group Exercise/Act as Ind, UE Funct Exercise/Act, UE Neuromus Re-Ed/Coord Treatment Duration: Sep 28, 2022 Frequency: 3 times per week (3-5 times per week) Rehab Potential: Guarded Time Start Time: 09:16 Stop Time: 09:29 DATE: Sep 26, 2022 Total Time Billed (hr/min): 13 Billed Treatment Time ADL 13 min CATARINO ARTHUR OT Sep 26, 2022 10:24
[2022-09-26 11:14] VITALS: BP 134/60
--- NOTE | 2022-09-26 13:31 | Progress Note - Cardiology ---
Cardiology SOAP Progress Note Subjective: No shortness of breath No cp or palp or syncope No n/v/d Gen weakness and malaise present Persistent focal deficits as previously note No leg swelling Objective: I&O/Vital Signs 09/26/22 09/26/22 09/26/22 09/26/22 03:09 07:00 07:19 07:20 Temp 36.5 36.9 36.9 Pulse 66 60 60 Resp 22 20 B/P (MAP) 128/60 (82) 116/56 (76) Pulse Ox 92 95 O2 Delivery Nasal Cannula Nasal Cannula O2 Flow Rate 3.00 3.00 09/26/22 09/26/22 09/26/22 11:14 11:15 12:42 Temp 36.4 36.4 Pulse 60 60 Resp 20 B/P (MAP) 134/60 (84) Pulse Ox 91 O2 Delivery Room Air 09/26/22 00:00 Intake Total 1655 ml Output Total 1100 ml Balance 555 ml Weight (Pounds): 190 Weight (Ounces): 2.0 Weight (Calculated Kilograms): 86.677096 Constitutional: AAO x 3, well-developed, well-nourished Respiratory: No accessory muscle use; chest expansion is symmetric, chest is bilaterally symmetric, other (fair to good, bilateral air entry that is diminished at the bases) Cardiovascular: regular rate-rhythm, S1 and S2, systolic murmur (soft RENATO at card base) Gastrointestional: No tender; soft; No guarding, No rebound; audible bowel sounds Extremities: No clubbing, No cyanosis, No significant edema Neurologic/Psychiatric: oriented x 3, other (R leg and arm weakness) Results/Procedures: Labs Laboratory Tests 09/25/22 15:28: Glucometer 151H 09/25/22 20:24: Glucometer 156H 09/26/22 05:00: White Blood Count 12.4H, Red Blood Count 3.74L, Hemoglobin 10.7L, Hematocrit 32L , Mean Corpuscular Volume 85, Mean Corpuscular Hemoglobin 29, Mean Corpuscular Hemoglobin Concent 34, Red Cell Distribution Width 16.3H, Platelet Count 334, Mean Platelet Volume 10.5, Immature Granulocyte % (Auto) 1, Neutrophils (%) (Auto) 80H, Lymphocytes (%) (Auto) 5L, Monocytes (%) (Auto) 10, Eosinophils (%) (Auto) 3, Basophils (%) (Auto) 0, Neutrophils # (Auto) 10.0H, Lymphocytes # (Auto) 0.7L, Monocytes # (Auto) 1.2H, Eosinophils # (Auto) 0.4H, Basophils # (Auto) 0.0, Immature Granulocyte # (Auto) 0.1, Sodium Level 135, Potassium Level 4.0, Chloride Level 111H, Carbon Dioxide Level 20L, Anion Gap 4L, Blood Urea Nitrogen 15, Creatinine 0.87, Estimat Glomerular Filtration Rate 87, BUN/Creatinine Ratio 17, Glucose Level 96, Calcium Level 7.6L, Corrected Calcium 9.0, Magnesium Level 1.8, Total Bilirubin 0.7, Aspartate Amino Transf (AST/SGOT) 35H, Alanine Aminotransferase (ALT/SGPT) 41, Alkaline Phosphatase 54, Total Protein 4.5L, Albumin 2.2L, Digoxin Level 0.97 09/26/22 10:18: Glucometer 167H Microbiology 09/23/22 MRSA Screen - Final, Complete MRSA not isolated Laboratory Tests 09/25/22 04:14 09/26/22 05:00 A/P: Assessment: Altered mental status of undetermined etiology - managed by Dr Duran Chronic gen weakness and propensity to falls - managed by Dr Duran 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 Normal left ventricular size with hypokinesia in the inferior wall and inferolateral wall, ejection fraction 33% - Last card cath by Dr Rosenberg in July 2022: Left Main is free of obstructive disease. Left Anterior Descending is tortuous with mild disease nonobstructive disease. Left Circumflex is occluded at the midportion. Right Coronary Artery is large dominant artery has multiple stents extending from the ostium till the bifurcation, patent stent with no obstructive disease Minimal troponin elevation, likely type 2 [place] due to labile BP H/o ICD implantation - managed by Dr Rosenberg Paroxysmal atrial fibrillation - h/o cardioversion, currently on Eliquis and amiodarone. Carotid artery stenosis - status post left CEA in 2011 - CTA head and neck done June 2018 revealed right moderate ICA stenosis. 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 Tolerating low-dose beta-jarret and ADARSH-inhib. Increase ADARSH-inhib. Add SGLT-2 inhib. * Continue amiodarone * Monitor labs * Advised to continue to refrain from smoking BIANCA DAVIS MD FACP FAC CCDS Sep 26, 2022 13:31
--- NOTE | 2022-09-26 13:59 | Progress Note ---
TONIOERIN 09/26/22 1359: Subjective Date Seen by a Provider: Sep 26, 2022 Time Seen by a Provider: 10:00 Subjective/Events-last exam Patient seen and examined at bedside this morning. He reports he is feeling better. Complaining of pain in the sacrum due to wound. It is covered with bandage. Will have nursing measure and evaluate. He denies shortness of breath, chest pain, N/V. He reports some weakness that is almost back to his baseline following his former stroke. His main concern upon discharge is being able to ambulate and go to the restroom without help. [facility] evaluating today for return. Denied accepting him today. Planning on skilled placement before return to [facility]. Hospital Course John Payne is a 82yo M admitted for weakness and recent falls over the last week. 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 HPI from ED "PT ARRIVES VIA EMS FROM [facility]. PT HAD AN "UNWITNESSED FALL" AROUND 0100 THIS MORNING SINCE THEN HE HAS NOT BEEN ACTING LIKE HIS NORMAL SELF. LAST KNOWN WELL TIME WAS 2100 TONIGHT THIS IS PT'S 3RD "FALL" THIS WEEK--PT FELL ON SATURDAY, AND HIT HIS HEAD. AND THEN HE FEEL AGAIN ON SATURDAY. IT IS UNKNOWN IF THESE EPISODES WERE WITNESSED OR NOT. HE WAS NOT SEEN BY A DR AFTER THESE EPISODES HE STATES HE HURTS ALL OVER SINCE SATURDAY WHEN HE FELL. BUT MOST PAIN IS IN BOTH HIPS HE IS ORIENTED TO SELF, PLACE, GROSSLY ORIENTED TO SITUATION, BUT CONFUSED TO DATE/TIME. HE DENIES HEAD PAIN DENIES NECK PAIN DENIES BACK PAIN DENIES NUMBNESS/TINGLING ANYWHERE NO LOSS OF BOWEL OR BLADDER CONTROL. PT DOES STATE HE HAS BEEN HAVING DIARRHEA FOR THE LAST 4 DAYS. NO NAUSEA/VO MITING. NO ABDOMINAL PAIN. NO BLOODY OR TARRY STOOLS PT IS ON ASPIRIN AND ELIQUIS. PT HAS HAD A PRIOR CVA IN 2019 AND HAS HAD SOME RESIDUAL SPEECH DIFFICULTY AND RIGHT SIDE WEAKNESS, BUT REPORTEDLY HIS SPEECH IS WORSE THAN NORMAL SINCE HE "FELL" TONIGHT. PT IS REPORTEDLY NORMALLY VERY INDEPENDENT WITH ADL'S. BUT SINCE THIS "FALL" TONIGHT, HE HAS HAD DIFFICULTY WALKING --EMS REPORT HE WAS ABLE TO STAND AND TRANSFER WITH MODERATE ASSIST. PT IS DIABETIC, GLUCOSE 146 FOR EMS. PT HAS A PACEMAKER IN PLACE. PT IS NOTED TO HAVE SOME EXPRESSIVE APHASIA, SEEMS SOMEWHAT CONFUSED, SPEECH IS NON-SENSICAL AT TIMES AND SEEMS TO BE HAVING SOME DIFFICULTY WITH WORD FINDING, AND SPEECH IS SOMEWHAT SLURRED/THICK-TONGUED. In the ED head CT was negative for acute intracranial process. No fractures were noted on pelvis xray or chest x ray. He was hypotensive and required norepi. His CK was elevated at 1100. His digoxin level was also elevated. He had a mildly elevated troponin thought to be type 2 infarction due to low blood pressure. After admission ICU and Cards were consulted. His CHF meds were held due to labile BP. MRI was ordered which did not reveal acute ischemia. His pressures improved with fluids and did not require pressors. Digoxin was held and levels fell to normal range. ABG initially showed respiratory alkalosis which corrected the following day. UA and CXR were negative for infection. Lactic acid was within normal limit. PT/OT were consulted to begin regaining his function. Eventually his CHF medications were restarted and empagliflozin was added by cardiology. He was evaluated by [facility] who did not accept his return. Planning skilled placement with eventual goal of return to [place]. Review of Systems General: No Chills, No Night Sweats HEENT: No Head Aches, No Visual Changes Pulmonary: No Dyspnea, No Cough Cardiovascular: No: Chest Pain, Palpitations Gastrointestinal: No: Nausea, Vomiting, Abdominal Pain Genitourinary: No Dysuria, No Hematuria Musculoskeletal: back pain (at sacral wound) Neurological: Weakness; No: Change in speech, Confusion Objective Exam Last Set of Vital Signs Vital Signs Date Time Temp Pulse Resp B/P (MAP) Pulse Ox O2 Delivery O2 Flow Rate FiO2 09/26/22 12:42 60 09/26/22 11:15 36.4 09/26/22 11:14 20 134/60 (84) 91 Room Air 09/26/22 07:19 3.00 09/23/22 16:34 21 Capillary Refill : Less Than 3 Seconds I&O Intake and Output 09/26/22 00:00 Intake Total 3005 ml Output Total 1600 ml Balance 1405 ml Intake Oral 1805 ml IV Total 1200 ml Output Urine Total 1600 ml General: Alert, Oriented X3, Cooperative HEENT: Atraumatic, EOMI Neck: Supple Lungs: Clear to Auscultation, Normal Air Movement Heart: Regular Rate, Normal S1, Normal S2 Abdomen: Soft, No Tenderness Extremities: No Cyanosis, No Edema Neuro: Other (aphasia from stroke in 2019) Psych/Mental Status: Mental Status NL, Mood NL Results Lab Laboratory Tests 09/25/22 15:28: Glucometer 151H 09/25/22 20:24: Glucometer 156H 09/26/22 05:00: White Blood Count 12.4H, Red Blood Count 3.74L, Hemoglobin 10.7L, Hematocrit 32L , Mean Corpuscular Volume 85, Mean Corpuscular Hemoglobin 29, Mean Corpuscular Hemoglobin Concent 34, Red Cell Distribution Width 16.3H, Platelet Count 334, Mean Platelet Volume 10.5, Immature Granulocyte % (Auto) 1, Neutrophils (%) (Auto) 80H, Lymphocytes (%) (Auto) 5L, Monocytes (%) (Auto) 10, Eosinophils (%) (Auto) 3, Basophils (%) (Auto) 0, Neutrophils # (Auto) 10.0H, Lymphocytes # (Auto) 0.7L, Monocytes # (Auto) 1.2H, Eosinophils # (Auto) 0.4H, Basophils # (Auto) 0.0, Immature Granulocyte # (Auto) 0.1, Sodium Level 135, Potassium Level 4.0, Chloride Level 111H, Carbon Dioxide Level 20L, Anion Gap 4L, Blood Urea Nitrogen 15, Creatinine 0.87, Estimat Glomerular Filtration Rate 87, BU N/Creatinine Ratio 17, Glucose Level 96, Calcium Level 7.6L, Corrected Calcium 9.0, Magnesium Level 1.8, Total Bilirubin 0.7, Aspartate Amino Transf (AST/SGOT) 35H, Alanine Aminotransferase (ALT/SGPT) 41, Alkaline Phosphatase 54, Total Protein 4.5L, Albumin 2.2L, Digoxin Level 0.97 09/26/22 10:18: Glucometer 167H Microbiology 09/23/22 MRSA Screen - Final, Complete MRSA not isolated Assessment/Plan Assessment/Plan Assess & Plan/Chief Complaint Fall at assisted living facility Generalized weakness Head CT negative for hemorrhage, did show possible worsening of area of encephalomalacia in L frontal lobe MRI negative for acute ischemia Continue eliquis 5mg BID Preexisting deficits include aphasia and R sided weakness, no new deficits on exam PT/OT Hypotension Required norepi in ICU, none for last 24 hrs Blood pressure holding stable continue to monitor pressure Cards consulted appreciate recs, initially held CHF medication due to labile BP IC fluids DCed, encourage PO intake Echo showed normal systolic function with EF of 40-45% with grade 1 diastolic dysfunction Cards restarted amiodarone and metoprolol Added empagliflozin to CHF regimen Elevated digoxin level 2.4 down to 0.97 digoxin held no lethargy, confusion, N/V present continue to monitor for symptoms and treat supportively Elevated creatine kinase likely secondary to fall kidney function within normal limits Elevated troponin likely type 2 related to hypotension 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 Diet- carb consistent DVT- anticoagulated with eliquis Code- full Awaiting skilled placement JOSIE SANTOS DO 09/26/222010: Supervisory-Addendum Brief Verification & Attestation Participated in pt care: history, MDM, physical Personally performed: exam, history, MDM, supervision of care Care discussed with: Medical Student Procedures: n/a Results interpretation: Verified all documentation Verification and Attestation of Medical Student E/M Service A medical student performed and documented this service in my presence. I reviewed and verified all information documented by the medical student and made modifications to such information, when appropriate. I personally performed the physical exam and medical decision making. Josie Santos Sep 26, 2022,20:11 ERIN ELIZALDE Sep 26, 2022 13:59 JOSIE SANTOS DO Sep 26, 2022 20:11
--- NOTE | 2022-09-26 14:18 | Physical Therapy Daily Note ---
PT Daily Note-Current Subjective Pt in recliner upon arrival and agrees to PT. Says his R leg doesn't work like his LLE does. Pain Section J - Health Conditions 1. Rarely or not at all 2. Occasionally 3. Frequently 4. Almost constantly 8. Unable to answer Pain Effect on Sleep: 1 Pain Interference with Therapy: 1 Pain Interference w/Day-to-Day: 1 Mental Status Patient Orientation: Person, Place, Time Attachments: Retana Catheter Transfers SCALE: Activities may be completed with or without assistive devices. 2-Vxzuymjpqk-iriftfq completes the activity by him/herself with no assistance from a helper. 5-Set-up or Clean-up Assistance-helper sets up or cleans up; patient completes activity. [place] assists only prior to or following the activity. 4-Supervision or Touching Assistance-helper provides verbal cues and/or touching/steadying and/or contact guard assistance as patient completes activity. Assistance may be provided throughout the activity or intermittently. 3-Partial/Moderate Assistance-helper does LESS THAN HALF the effort. [place] lifts, holds or supports trunk or limbs, but provides less than half the effort. 2-Substantial/Maximal Assistance-helper does MORE THAN HALF the effort. [place] lifts or holds trunk or limbs and provides more than half the effort. 4-Kpxpvoiio-jqomae does ALL the effort. Patient does none of the effort to complete the activity. Or, the assistance of 2 or more helpers is required for the patient to complete the activity. If activity was not attempted, code reason: 7-Patient Refused. 9-Not Applicable-not attempted and the patient did not perform the activity before the current illness, exacerbation or injury. 10-Not Attempted due to Environmental Limitations-(lack of equipment, weather restraints, etc.). 88-Not Attempted due to Medical Conditions or Safety Concerns. Sit to Stand (QC): 3 Gait Training Does the Patient Walk?: Yes Distance: 20' Walk 10 feet (QC): 4 Gait Persons Needed: 1 Gait Assistive Device: FWW Exercises Seated Therapy Exercises: Ankle pumps, Long arc quads, Hip flexion, Hip abd/add Seated Reps: 20 Standing: Sit to Stand Standing Reps: 2 Treatments Pt performs seated exs in recliner and amb in room 20'. Pt transfers back to recliner following amb. All needs met and call light nearby. Assessment Current Status: Good Progress Pt required hand and foot placement during transfers and to stay within FWW while amb. Pt fatigued post treatment but did well w/ amb. PT Roofer Assistant Goals Residential Goals PT Residential Goals Time Frame: Oct 06, 2022 Roll Left & Right (QC): 4 Sit to Lying (QC): 4 Lying-Sitting on Side/Bed(QC): 4 Sit to Stand (QC): 4 Chair/Zaw-nu-Nnvey Xfer(QC): 4 Toilet Transfer (QC): 4 Walk 10 feet (QC): 4 Walk 50ft with 2 Turns (QC): 4 PT Plan Problem List Problem List: Activity Tolerance, Functional Strength, Safety Treatment/Plan Treatment Plan: Continue Plan of Care Treatment Plan: Bed Mobility, Education, Functional Activity Kristine, Functional Strength, Gait, Safety, Therapeutic Exercise, Transfers Treatment Duration: Oct 06, 2022 Frequency: 5 times per week Estimated Hrs Per Day: .25 hour per day Safety Risks/Education Patient Education: Gait Training, Transfer Techniques, Correct Positioning Teaching Recipient: Patient Teaching Methods: Discussion Response to Teaching: Return Demonstration Time Time In: 1321 Time Out: 1335 DATE: Sep 26, 2022 Total Billed Treatment Time: 14 Total Billed Treatment 1, Ex JAMES MCLEAN DIRECTOR OF CLOUD SERVICES Sep 26, 2022 14:17
[2022-09-26 15:04] VITALS: BP 134/60
[2022-09-26 15:33] VITALS: BP 154/62
[2022-09-26 19:14] VITALS: BP 139/67
[2022-09-26] MEDS: ENALAPRIL 2.5 MG (VASOTEC) TAB PO SCH (20:48)
[2022-09-26] MEDS: RT-ALBUTEROL/IPRATROPIUM 3 ML (DUONEB) VIAL INH SCH (21:06)
[2022-09-27 00:02] VITALS: BP 106/54
[2022-09-27] MEDS: RT-ALBUTEROL/IPRATROPIUM 3 ML (DUONEB) VIAL INH SCH ×2 (02:18→09:42)
[2022-09-27 03:07] VITALS: BP 115/52
[2022-09-27 05:00] LABS: BASOPHILS % (AUTO) 0 % (0-10); EOSINOPHILS # (AUTO) 0.3 10^3/uL (0.0-0.3); EOSINOPHILS % (AUTO) 2 % (0-10); HEMATOCRIT 32 % (40-54); HEMOGLOBIN 10.9 g/dL (13.3-17.7); LYMPHOCYTES # (AUTO) 0.7 10^3/uL (1.0-4.0); LYMPHOCYTES % (AUTO) 5 % (12-44); MEAN CORPUSCULAR HEMOGLOBIN 29 pg (25-34); MEAN CORPUSCULAR HGB CONC 34 g/dL (32-36); MEAN CORPUSCULAR VOLUME 85 fL (80-99); MEAN PLATELET VOLUME 10.9 fL (9.0-12.2); MONOCYTES # (AUTO) 1.4 10^3/uL (0.0-1.0); MONOCYTES % (AUTO) 10 % (0-12); NEUTROPHILS # (AUTO) 11.3 10^3/uL (1.8-7.8); NEUTROPHILS % (AUTO) 81 % (42-75); PLATELET COUNT 417 10^3/uL (130-400)
[2022-09-27] MEDS: inSUlin ASPART (NovoLOG) 1 UNIT/0.01 ML (CHARGE PER UNIT) SC SCH ×2 (05:05→11:34)
[2022-09-27 05:21] LABS: ALBUMIN 2.2 GM/DL (3.2-4.5)
[2022-09-27 05:23] LABS: TOTAL PROTEIN 4.7 GM/DL (6.4-8.2)
[2022-09-27 05:25] LABS: BILIRUBIN,TOTAL 0.6 MG/DL (0.1-1.0)
[2022-09-27 05:27] LABS: CREATININE SERUM 0.93 MG/DL (0.60-1.30)
[2022-09-27 05:30] LABS: MAGNESIUM 1.9 MG/DL (1.6-2.4)
[2022-09-27 07:23] VITALS: BP 122/60
[2022-09-27] MEDS ORDERED: EMPAGLIFLOZIN 10 MG TABLET (JARDIANCE) PO SCH (09:00)
[2022-09-27] MEDS: ENALAPRIL 2.5 MG (VASOTEC) TAB PO SCH (09:28)
[2022-09-27] MEDS: SENNOSIDES 8.6 MG (SENOKOT) TAB PO SCH (09:29)
[2022-09-27] MEDS: ASPIRIN 81 MG CHEW (CHILDREN'S ASA) PO SCH (09:29)
[2022-09-27] MEDS: APIXABAN 5 MG (ELIQUIS) TABLET PO SCH (09:29)
[2022-09-27] MEDS: DOCUSATE SODIUM 100 MG (COLACE) CAP PO SCH (09:29)
[2022-09-27] MEDS: AMIODARONE 200 MG (CORDARONE) TAB PO SCH (09:29)
--- NOTE | 2022-09-27 10:06 | Physical Therapy Daily Note ---
PT Daily Note-Current Subjective Patient agrees to therapy. Pain Section J - Health Conditions 1. Rarely or not at all 2. Occasionally 3. Frequently 4. Almost constantly 8. Unable to answer Pain Effect on Sleep: 1 Pain Interference with Therapy: 1 Pain Interference w/Day-to-Day: 1 Transfers SCALE: Activities may be completed with or without assistive devices. 9-Zjneukzqgv-rbzsxjb completes the activity by him/herself with no assistance from a helper. 5-Set-up or Clean-up Assistance-helper sets up or cleans up; patient completes activity. [place] assists only prior to or following the activity. 4-Supervision or Touching Assistance-helper provides verbal cues and/or touching/steadying and/or contact guard assistance as patient completes activity. Assistance may be provided throughout the activity or intermittently. 3-Partial/Moderate Assistance-helper does LESS THAN HALF the effort. [place] lifts, holds or supports trunk or limbs, but provides less than half the effort. 2-Substantial/Maximal Assistance-helper does MORE THAN HALF the effort. [place] lifts or holds trunk or limbs and provides more than half the effort. 0-Ewgpeirlo-cuvuyi does ALL the effort. Patient does none of the effort to complete the activity. Or, the assistance of 2 or more helpers is required for the patient to complete the activity. If activity was not attempted, code reason: 7-Patient Refused. 9-Not Applicable-not attempted and the patient did not perform the activity before the current illness, exacerbation or injury. 10-Not Attempted due to Environmental Limitations-(lack of equipment, weather restraints, etc.). 88-Not Attempted due to Medical Conditions or Safety Concerns. Lying to Sitting/Side of Bed(Q: 4 Sit to Stand (QC): 4 Chair/Xum-ec-Gsgcy Xfer(QC): 4 Gait Training Distance: 125' Walk 10 feet (QC): 4 Walk 50 ft with 2 Turns(QC): 4 Gait Assistive Device: FWW CGA for safety/steady gait sequence Assessment Patient improved with functional mobility on this date. Patient ambulated with FWW CGA 125'. Patient in recliner with SCD's in place. PT Correction Goals Correction Goals PT Soft Metals Engraver Hand Goals Time Frame: Oct 06, 2022 Roll Left & Right (QC): 4 Sit to Lying (QC): 4 Lying-Sitting on Side/Bed(QC): 4 Sit to Stand (QC): 4 Chair/Qso-xo-Khrfa Xfer(QC): 4 Toilet Transfer (QC): 4 Walk 10 feet (QC): 4 Walk 50ft with 2 Turns (QC): 4 PT Plan Treatment/Plan Treatment Plan: Continue Plan of Care Treatment Plan: Bed Mobility, Education, Functional Activity Kristine, Functional Strength, Gait, Safety, Therapeutic Exercise, Transfers Treatment Duration: Oct 06, 2022 Frequency: 5 times per week Estimated Hrs Per Day: .25 hour per day Time Time In: 945 Time Out: 955 DATE: Sep 27, 2022 Total Billed Treatment Time: 10 Total Billed Treatment 1 visit GT 10 min CRISTIAN SAUCEDA PT Sep 27, 2022 10:06
[2022-09-27] MEDS ORDERED: MTP25TSR PO (10:53)
[2022-09-27] MEDS ORDERED: AMIO200T65 PO (10:53)
[2022-09-27] MEDS ORDERED: ENLP2.5T PO (10:53)
[2022-09-27] MEDS ORDERED: CHOL20002 PO (10:53)
[2022-09-27] MEDS ORDERED: APIX5TAB PO (10:53)
[2022-09-27] MEDS ORDERED: GLIM1TAB4 PO (10:53)
[2022-09-27] MEDS ORDERED: OMEP20CA18 PO (10:53)
[2022-09-27] MEDS ORDERED: ACET-2267 PO (10:53)
[2022-09-27] MEDS ORDERED: CETI10TA49 PO (10:53)
[2022-09-27] MEDS ORDERED: ATOR80TA76 PO (10:53)
[2022-09-27] MEDS ORDERED: LOPE-175 PO (10:53)
[2022-09-27] MEDS ORDERED: FURO40TA4 PO (10:53)
[2022-09-27] MEDS ORDERED: METH5TAB95 PO (10:53)
[2022-09-27] MEDS ORDERED: FERR325T18 PO (10:53)
[2022-09-27] MEDS ORDERED: ASPI-1238 PO (10:53)
--- NOTE | 2022-09-27 10:54 | Discharge Inst-Skilled Nursing ---
Discharge Inst-Skilled NF Reconcile Patient Problems Problems Reviewed?: Yes Chief Complaint CC: Multiple falls with right sided weakness and hypotension HPI: This is an 82yo[place] patient of Jia Gary and this examiner who has a h/o DM and CAD and AF and pacemaker who presents to the ER with multiple fall at [place]. He is confused and is unable to tell me exact details. His baseline function since CVA is expressive aphasia. Unable to obtain accurate NIH score due to baseline CVA deficits and confusion and no GA staff to collaborate. Due to hypotension I have moved him from [facility] to ICU for closer monitoring. Cardiology consultation appreciated. Patient Instructions Patient Problems: Debility Consult/Follow Up/Orders Follow Up Appt.: Jia Gary/Dr Duran on [place] rounds Skilled NF Admit to: [facility] Certification ([facility]) I certify that SNF services are required to be given on an inpatient basis because of the above named patient's need for assisted care on a continuing basis for the conditions(s) for which he/she was receiving inpatient hospital services prior to his/her transfer to the SNF. Jail Facility Order: Nursing Services, Smoking Tobacco Packing Machine Hand-Evaluate & Treat, Physical Therapy-Evaluate & Treat, Speech Language-Evaluate & Treat Oxygen Delivery Method: Nasal Cannula Discharge Diet: ADA Diet Resuscitation Status: Full Code New & Resume Previous Orders New Medications: Amiodarone HCl (Amiodarone HCl) 200 Mg Tablet 200 MG PO BID, #60 TAB Apixaban (Eliquis) 5 Mg Tablet 5 MG PO BID, #60 TAB Atorvastatin Calcium (Atorvastatin Calcium) 80 Mg Tablet 80 MG PO HS, #30 TAB Enalapril Maleate (Enalapril Maleate) 2.5 Mg Tablet 2.5 MG PO BID, #60 TAB Metoprolol Succinate (Metoprolol Succinate) 25 Mg Tab.er.24h 25 MG PO DAILY, #30 TAB Changed Medications: Cholecalciferol (Vitamin D3) (Vitamin D3) 50 Mcg (2000 Unit) Capsule 50 MCG PO DAILY, #30 CAP (Changed from: Cholecalciferol (Vitamin D3) (Vitamin D3) 50 Mcg Capsule 50 Mcg PO DAILY) Ferrous Sulfate (Ferrous Sulfate) 325 Mg (65 Mg Iron) Tablet 325 MG PO Q48H, #30 TAB (Changed from: Ferrous Sulfate 325 Mg Tablet 325 Mg PO Q48H) Furosemide (Furosemide) 40 Mg Tablet 40 MG PO Q48H, #15 TAB (Changed from: DAILY) Glimepiride (Glimepiride) 1 Mg Tablet 1 MG PO DAILY, #30 TAB (Changed from: Removed Instructions) Continued Medications: Acetaminophen (Tylenol Extra Strength) 500 Mg Tablet 1000 MG PO Q6H PRN for PAIN-MILD (1-4), #30 TAB (This prescription has been renewed) Aspirin (Aspirin EC) 81 Mg Tablet.dr 81 MG PO HS, #30 TAB (This prescription has been renewed) Cetirizine HCl (Zyrtec) 10 Mg Tablet 10 MG PO DAILY, #30 TAB (This prescription has been renewed) Loperamide HCl (Imodium A-D) 2 Mg Capsule 2 MG PO EVERY 3 HOURS PRN for LOOSE STOOLS MDD 16MG, #30 CAP (This prescription has been renewed) Methimazole (Methimazole) 5 Mg Tablet 5 MG PO HS, #30 TAB (This prescription has been renewed) Omeprazole (Omeprazole) 20 Mg Capsule.dr 20 MG PO DAILY, #30 CAP (This prescription has been renewed) Discontinued Medications: Amiodarone HCl (Amiodarone HCl) 200 Mg Tablet 400 MG PO BID, TAB TAKES 2 (200MG) TABLETS Apixaban (Eliquis) 2.5 Mg Tablet 2.5 MG PO BID, TAB Bismuth Subsalicylate (Pepto-Bismol) 262 Mg/15 Ml Oral.susp 30 ML PO Q2H PRN for NAUSEA/DIARRHEA, ML Carvedilol (Carvedilol) 12.5 Mg Tablet 12.5 MG PO BID, TAB HOLD FOR SBP <100 HR <60 Digoxin (Digoxin) 125 Mcg (0.125 Mg) Tablet 125 MCG PO DAILY, TAB HOLD FOR PULSE <60 Docusate Sodium (Colace) 100 Mg Capsule 100 MG PO BID, CAP Enalapril Maleate (Enalapril Maleate) 2.5 Mg Tablet 2.5 MG PO DAILY, TAB Glimepiride (Amaryl) 1 Mg Tab 3 MG PO DAILY, TAB TAKES 3 (1MG)TABS Rosuvastatin Calcium (Rosuvastatin Calcium) 10 Mg Tablet 10 MG PO DAILY, TAB Spironolactone (Spironolactone) 25 Mg Tablet 25 MG PO DAILY Josie Duran Sep 27, 2022 10:53 JOSIE DURAN 13, 2023 10:54
--- NOTE | 2022-09-27 10:55 | Discharge Summary ---
Diagnosis/Chief Complaint Date of Admission Sep 24, 2022 at 11:16 Date of Discharge Discharge Date: Sep 27, 2022 Discharge Diagnosis Fall at assisted living facility Generalized weakness Head CT negative for hemorrhage, did show possible worsening of area of encephalomalacia in L frontal lobe MRI negative for acute ischemia Continue eliquis 5mg BID Preexisting deficits include aphasia and R sided weakness, no new deficits on exam PT/OT Hypotension Required norepi in ICU, none for last 24 hrs Blood pressure holding stable continue to monitor pressure Cards consulted appreciate recs, initially held CHF medication due to labile BP IC fluids DCed, encourage PO intake Echo showed normal systolic function with EF of 40-45% with grade 1 diastolic dysfunction Cards restarted amiodarone and metoprolol Added empagliflozin to CHF regimen Elevated digoxin level 2.4 down to 0.97 digoxin held no lethargy, confusion, N/V present continue to monitor for symptoms and treat supportively Elevated creatine kinase likely secondary to fall kidney function within normal limits Elevated troponin likely type 2 related to hypotension 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 Diet- carb consistent DVT- anticoagulated with eliquis Code- full Awaiting skilled placement Discharge Summary Discharge Physical Examination Allergies: Coded Allergies: No Known Drug Allergies (Verified , 05/21/19) Vitals & I&Os Vital Signs Date Time Temp Pulse Resp B/P (MAP) Pulse Ox O2 Delivery O2 Flow Rate FiO2 09/27/22 13:54 36.9 73 16 103/52 90 Room Air 2.00 09/26/22 21:09 21 General Appearance: Alert, Oriented X3, Cooperative Respiratory: Clear to Auscultation Cardiovascular: Regular Rate Hospital Course Was the Problem List Reviewed?: Yes Hospital Course John Payne is a 82yo M admitted for weakness and recent falls over the last week. 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 HPI from ED "PT ARRIVES VIA EMS FROM [facility]. PT HAD AN "UNWITNESSED FALL" AROUND 0100 THIS MORNING SINCE THEN HE HAS NOT BEEN ACTING LIKE HIS NORMAL SELF. LAST KNOWN WELL TIME WAS 2100 TONIGHT THIS IS PT'S 3RD "FALL" THIS WEEK--PT FELL ON SATURDAY, AND HIT HIS HEAD. AND THEN HE FEEL AGAIN ON SATURDAY. IT IS UNKNOWN IF THESE EPISODES WERE WITNESSED OR NOT. HE WAS NOT SEEN BY A DR AFTER THESE EPISODES HE STATES HE HURTS ALL OVER SINCE SATURDAY WHEN HE FELL. BUT MOST PAIN IS IN BOTH HIPS HE IS ORIENTED TO SELF, PLACE, GROSSLY ORIENTED TO SITUATION, BUT CONFUSED TO DATE/TIME. HE DENIES HEAD PAIN DENIES NECK PAIN DENIES BACK PAIN DENIES NUMBNESS/TINGLING ANYWHERE NO LOSS OF BOWEL OR BLADDER CONTROL. PT DOES STATE HE HAS BEEN HAVING DIARRHEA FOR THE LAST 4 DAYS. NO NAUSEA/VOMITING. NO ABDOMINAL PAIN. NO BLOODY OR TARRY STOOLS PT IS ON ASPIRIN AND ELIQUIS. PT HAS HAD A PRIOR CVA IN 2019 AND HAS HAD SOME RESIDUAL SPEECH DIFFICULTY AND RIGHT SIDE WEAKNESS, BUT REPORTEDLY HIS SPEECH IS WORSE THAN NORMAL SINCE HE "FELL" TONIGHT. PT IS REPORTEDLY NORMALLY VERY INDEPENDENT WITH ADL'S. BUT SINCE THIS "FALL" TONIGHT, HE HAS HAD DIFFICULTY WALKING --EMS REPORT HE WAS ABLE TO STAND AND TRANSFER WITH MODERATE ASSIST. PT IS DIABETIC, GLUCOSE 146 FOR EMS. PT HAS A PACEMAKER IN PLACE. PT IS NOTED TO HAVE SOME EXPRESSIVE APHASIA, SEEMS SOMEWHAT CONFUSED, SPEECH IS NON-SENSICAL AT TIMES AND SEEMS TO BE HAVING SOME DIFFICULTY WITH WORD FINDING, AND SPEECH IS SOMEWHAT SLURRED/THICK-TONGUED. In the ED head CT was negative for acute intracranial process. No fractures were noted on pelvis xray or chest x ray. He was hypotensive and required norepi. His CK was elevated at 1100. His digoxin level was also elevated. He had a mildly elevated troponin thought to be type 2 infarction due to low blood pressure. After admission ICU and Cards were consulted. His CHF meds were held due to labile BP. MRI was ordered which did not reveal acute ischemia. His pressures improved with fluids and did not require pressors. Digoxin was held and levels fell to normal range. ABG initially showed respiratory alkalosis which corrected the following day. UA and CXR were negative for infection. Lactic acid was wi thin normal limit. PT/OT were consulted to begin regaining his function. Eventually his CHF medications were restarted and empagliflozin was added by cardiology. He was evaluated by Jay Pollard who did not accept his return. Planning skilled placement with eventual goal of return to [place]. Labs (last 24 hrs) Laboratory Tests 09/23/22 02:48: White Blood Count 16.8H, Red Blood Count 4.64, Hemoglobin 13.4, Hematocrit 40, Mean Corpuscular Volume 86, Mean Corpuscular Hemoglobin 29, Mean Corpuscular Hemoglobin Concent 34, Red Cell Distribution Width 15.6H, Platelet Count 376, Mean Platelet Volume 10.3, Immature Granulocyte % (Auto) 1, Neutrophils (%) (Auto) 80H, Lymphocytes (%) (Auto) 6L, Monocytes (%) (Auto) 11, Eosinophils (%) (Auto) 2, Basophils (%) (Auto) 0, Neutrophils # (Auto) 13.5H, Lymphocytes # (Auto) 1.0, Monocytes # (Auto) 1.9H, Eosinophils # (Auto) 0.3, Basophils # (Auto) 0.0, Immature Granulocyte # (Auto) 0.2H, Neutrophils % (Manual) 84, Lymphocytes % (Manual) 6, Monocytes % (Manual) 10, Farzad Cells SLIGHT, Blood Morphology Comment , Prothrombin Time 15.7H, INR Comment 1.2, Activated Partial Thromboplast Time 40H, Sodium Level 135, Potassium Level 4.3, Chloride Level 104, Carbon Dioxide Level 20L, Anion Gap 11, Blood Urea Nitrogen 26H, Creatinine 1.67H, Estimat Glomerular Filtration Rate 41, BUN/Creatinine Ratio 16, Glucose Level 129H, Calcium Level 8.8, Corrected Calcium 9.6, Magnesium Level 1.9, Total Bilirubin 0.6, Aspartate Amino Transf (AST/SGOT) 87H, Alanine Aminotransferase (ALT/SGPT) 99H, Alkaline Phosphatase 58, Total Creatine Kinase 1106H, Creatine Kinase MB 5.3, Myoglobin 570.8H, Troponin I 0.034H, Total Protein 6.1L, Albumin 3.0L, TSH [place] Testing 1.16, Digoxin Level 2.40*H 09/23/22 10:59: Glucometer 106 09/23/22 12:23: Lactic Acid Level 1.85 09/23/22 13:50: Urine Color YELLOW, Urine Clarity CLEAR, Urine pH 5.5, Urine Specific [place] 1.025H, Urine Protein TRACEH, Urine Glucose (UA) TRACEH, Urine Ketones NEGATIVE, Urine Nitrite NEGATIVE, Urine Bilirubin NEGATIVE, Urine Urobilinogen 1.0, Urine Leukocyte Esterase NEGATIVE, Urine RBC (Auto) NEGATIVE, Urine RBC NONE, Urine WBC 0-2, Urine Squamous Epithelial Cells 0-2, Urine Crystals NONE, Urine Bacteria TRACE, Urine Casts NONE, Urine Mucus NEGATIVE, Urine Culture Indicated NO 09/23/22 16:18: Glucometer 156H 09/23/22 16:35: Bedside Blood Gas pH (LAB) 7.432H, Bedside Blood Gas pCO2 (LAB) 30.8L, Bedside Blood Gas pO2 (LAB) 84, Bedside Blood Gas HCO3 (LAB) 20.6L, POC Blood Gas Total CO2 Calc 22L, Bedside Bl Gas O2 Saturation (Calc) 97, Bedside Arterial Blood Base Excess -4L 09/23/22 21:17: Glucometer 177H 09/24/22 03:36: White Blood Count 13.9H, Red Blood Count 3.95L, Hemoglobin 11.5L, Hematocrit 34L , Mean Corpuscular Volume 85, Mean Corpuscular Hemoglobin 29, Mean Corpuscular Hemoglobin Concent 34, Red Cell Distribution Width 15.7H, Platelet Count 341, Mean Platelet Volume 11.1, Immature Granulocyte % (Auto) 1, Neutrophils (%) (Auto) 79H, Lymphocytes (%) (Auto) 6L, Monocytes (%) (Auto) 12, Eosinophils (%) (Auto) 2, Basophils (%) (Auto) 0, Neutrophils # (Auto) 10.9H, Lymphocytes # (Auto) 0.8L, Monocytes # (Auto) 1.7H, Eosinophils # (Auto) 0.3, Basophils # (Auto) 0.0, Immature Granulocyte # (Auto) 0.1, Sodium Level 139, Potassium Level 3.8, Chloride Level 110H, Carbon Dioxide Level 21, Anion Gap 8, Blood Urea Nitrogen 17, Creatinine 1.26, Estimat Glomerular Filtration Rate 58, BUN/Creatinine Ratio 13, Glucose Level 114H, Calcium Level 7.8L, Corrected Calcium 9.1, Phosphorus Level 1.8L, Magnesium Level 1.8, Total Bilirubin 0.4, Aspartate Amino Transf (AST/SGOT) 53H, Alanine Aminotransferase (ALT/SGPT) 63H, Alkaline Phosphatase 55, Total Protein 4.9L, Albumin 2.4L, Digoxin Level 1.56 09/24/22 06:10: Bedside Blood Gas pH (LAB) 7.403, Bedside Blood Gas pCO2 (LAB) 34.1L, Bedside Blood Gas pO2 (LAB) 61L, Bedside Blood Gas HCO3 (LAB) 21.3L, POC Blood Gas Total CO2 Calc 22L, Bedside Bl Gas O2 Saturation (Calc) 91L, Bedside Arterial Blood Base Excess -3L 09/24/22 06:11: Glucometer 104 09/24/22 10:49: Glucometer 225H 09/24/22 16:36: Glucometer 117H 09/24/22 20:46: Glucometer 127H 09/25/22 04:14: White Blood Count 12.4H, Red Blood Count 3.76L, Hemoglobin 10.9L, Hematocrit 32L , Mean Corpuscular Volume 86, Mean Corpuscular Hemoglobin 29, Mean Corpuscular Hemoglobin Concent 34, Red Cell Distribution Width 16.0H, Platelet Count 343, Mean Platelet Volume 11.0, Immature Granulocyte % (Auto) 1, Neutrophils (%) (Auto) 80H, Lymphocytes (%) (Auto) 5L, Monocytes (%) (Auto) 11, Eosinophils (%) (Auto) 3, Basophils (%) (Auto) 0, Neutrophils # (Auto) 9.8H, Lymphocytes # (Auto) 0.7L, Monocytes # (Auto) 1.4H, Eosinophils # (Auto) 0.3, Basophils # ( Auto) 0.0, Immature Granulocyte # (Auto) 0.1, Sodium Level 137, Potassium Level 3.9, Chloride Level 113H, Carbon Dioxide Level 20L, Anion Gap 4L, Blood Urea Nitrogen 14, Creatinine 0.95, Estimat Glomerular Filtration Rate 81, BUN/Creatinine Ratio 15, Glucose Level 92, Calcium Level 7.6L, Corrected Calcium 9.0, Magnesium Level 1.9, Total Bilirubin 0.5, Aspartate Amino Transf (AST/SGOT) 40H, Alanine Aminotransferase (ALT/SGPT) 50, Alkaline Phosphatase 48, Total Protein 4.5L, Albumin 2.2L, Digoxin Level 1.23 09/25/22 11:44: Glucometer 128H 09/25/22 15:28: Glucometer 151H 09/25/22 20:24: Glucometer 156H 09/26/22 05:00: White Blood Count 12.4H, Red Blood Count 3.74L, Hemoglobin 10.7L, Hematocrit 32L , Mean Corpuscular Volume 85, Mean Corpuscular Hemoglobin 29, Mean Corpuscular Hemoglobin Concent 34, Red Cell Distribution Width 16.3H, Platelet Count 334, Mean Platelet Volume 10.5, Immature Granulocyte % (Auto) 1, Neutrophils (%) (Auto) 80H, Lymphocytes (%) (Auto) 5L, Monocytes (%) (Auto) 10, Eosinophils (%) (Auto) 3, Basophils (%) (Auto) 0, Neutrophils # (Auto) 10.0H, Lymphocytes # (Auto) 0.7L, Monocytes # (Auto) 1.2H, Eosinophils # (Auto) 0.4H, Basophils # (Auto) 0.0, Immature Granulocyte # (Auto) 0.1, Sodium Level 135, Potassium Level 4.0, Chloride Level 111H, Carbon Dioxide Level 20L, Anion Gap 4L, Blood Urea Nitrogen 15, Creatinine 0.87, Estimat Glomerular Filtration Rate 87, BUN/Creatinine Ratio 17, Glucose Level 96, Calcium Level 7.6L, Corrected Calcium 9.0, Magnesium Level 1.8, Total Bilirubin 0.7, Aspartate Amino Transf (AST/SGOT) 35H, Alanine Aminotransferase (ALT/SGPT) 41, Alkaline Phosphatase 54, Total Protein 4.5L, Albumin 2.2L, Digoxin Level 0.97 09/26/22 10:18: Glucometer 167H 09/26/22 15:33: Glucometer 125H 09/26/22 20:39: Glucometer 196H 09/27/22 04:35: Glucometer 115H 09/27/22 04:36: White Blood Count 14.0H, Red Blood Count 3.74L, Hemoglobin 10.9L, Hematocrit 32L , Mean Corpuscular Volume 85, Mean Corpuscular Hemoglobin 29, Mean Corpuscular Hemoglobin Concent 34, Red Cell Distribution Width 15.9H, Platelet Count 417H, Mean Platelet Volume 10.9, Immature Granulocyte % (Auto) 1, Neutrophils (%) (Auto) 81H, Lymphocytes (%) (Auto) 5L, Monocytes (%) (Auto) 10, Eosinophils (%) (Auto) 2, Basophils (%) (Auto) 0, Neutrophils # (Auto) 11.3H, Lymphocytes # (Auto) 0.7L, Monocytes # (Auto) 1.4H, Eosinophils # (Auto) 0.3, Basophils # (Auto) 0.0, Immature Granulocyte # (Auto) 0.2H, Sodium Level 135, Potassium Level 4.0, Chloride Level 107, Carbon Dioxide Level 21, Anion Gap 7, Blood Urea Nitrogen 17, Creatinine 0.93, Estimat Glomerular Filtration Rate 83, BUN/Creatinine Ratio 18, Glucose Level 119H, Calcium Level 8.0L, Corrected Calcium 9.4, Magnesium Level 1.9, Total Bilirubin 0.6, Aspartate Amino Transf (AST/SGOT) 35H, Alanine Aminotransferase (ALT/SGPT) 37, Alkaline Phosphatase 66, Total Protein 4.7L, Albumin 2.2L, Digoxin Level 0.84 09/27/22 10:52: Glucometer 194H Microbiology 09/23/22 MRSA Screen - Final, Complete MRSA not isolated Pending Labs Microbiology Date/Time Source Procedure Growth Status 09/23/22 13:35 Nasal MRSA Screen - Final MRSA not isolated Complete Laboratory Tests 09/23/22 02:48: White Blood Count 16.8, Red Blood Count 4.64, Hemoglobin 13.4, Hematocrit 40, Mean Corpuscular Volume 86, Mean Corpuscular Hemoglobin 29, Mean Corpuscular Hemoglobin Concent 34, Red Cell Distribution Width 15.6, Platelet Count 376, Mean Platelet Volume 10.3, Immature Granulocyte % (Auto) 1, Neutrophils (%) (Auto) 80, Lymphocytes (%) (Auto) 6, Monocytes (%) (Auto) 11, Eosinophils (%) (Auto) 2, Basophils (%) (Auto) 0, Neutrophils # (Auto) 13.5, Lymphocytes # (Auto) 1.0, Monocytes # (Auto) 1.9, Eosinophils # (Auto) 0.3, Basophils # (Auto) 0.0, Immature Granulocyte # (Auto) 0.2, Neutrophils % (Manual) 84, Lymphocytes % (Manual) 6, Monocytes % (Manual) 10, Farzad Cells SLIGHT, Blood Morphology Comment , Prothrombin Time 15.7, INR Comment 1.2, Activated Partial Thromboplast Time 40, Sodium Level 135, Potassium Level 4.3, Chloride Level 104, Carbon Dioxide Level 20, Anion Gap 11, Blood Urea Nitrogen 26, Creatinine 1.67, Estimat Glomerular Filtration Rate 41, BUN/Creatinine Ratio 16, Glucose Level 129, Calcium Level 8.8, Corrected Calcium 9.6, Magnesium Level 1.9, Total Bilirubin 0.6, Aspartate Amino Transf (AST/SGOT) 87, Alanine Aminotransferase (ALT/SGPT) 99, Alkaline Phosphatase 58, Total Creatine Kinase 1106, Creatine Kinase MB 5.3, Myoglobin 570.8, Troponin I 0.034, Total Protein 6.1, Albumin 3.0, TSH [place] Testing 1.16, Digoxin Level 2.40 09/23/22 10:59: Glucometer 106 09/23/22 12:23: Lactic Acid Level 1.85 09/23/22 13:50: Urine Color YELLOW, Urine Clarity CLEAR, Urine pH 5.5, Urine Specific [place] 1.025, Urine Protein TRACE, Urine Glucose (UA) TRACE, Urine Ketones NEGATIVE, Urine Nitrite NEGATIVE, Urine Bilirubin NEGATIVE, Urine Urobilinogen 1.0, Urine Leukocyte Esterase NEGATIVE, Urine RBC (Auto) NEGATIVE, Urine RBC NONE, Urine WBC 0-2, Urine Squamous Epithelial Cells 0-2, Urine Crystals NONE, Urine Bacteria TRACE, Urine Casts NONE, Urine Mucus NEGATIVE, Urine Culture Indicated NO 09/23/22 16:18: Glucometer 156 09/23/22 16:35: Bedside Blood Gas pH (LAB) 7.432, Bedside Blood Gas pCO2 (LAB) 30.8, Bedside Blood Gas pO2 (LAB) 84, Bedside Blood Gas HCO3 (LAB) 20.6, POC Blood Gas Total CO2 Calc 22, Bedside Bl Gas O2 Saturation (Calc) 97, Bedside Arterial Blood Base Excess -4 09/23/22 21:17: Glucometer 177 09/24/22 03:36: White Blood Count 13.9, Red Blood Count 3.95, Hemoglobin 11.5, Hematocrit 34, Mean Corpuscular Volume 85, Mean Corpuscular Hemoglobin 29, Mean Corpuscular Hemoglobin Concent 34, Red Cell Distribution Width 15.7, Platelet Count 341, Mean Platelet Volume 11.1, Immature Granulocyte % (Auto) 1, Neutrophils (%) (Auto) 79, Lymphocytes (%) (Auto) 6, Monocytes (%) (Auto) 12, Eosinophils (%) (Auto) 2, Basophils (%) (Auto) 0, Neutrophils # (Auto) 10.9, Lymphocytes # (Auto) 0.8, Monocytes # (Auto) 1.7, Eosinophils # (Auto) 0.3, Basophils # (Auto) 0.0, Immature Granulocyte # (Auto) 0.1, Sodium Level 139, Potassium Level 3.8, Chloride Level 110, Carbon Dioxide Level 21, Anion Gap 8, Blood Urea Nitrogen 17, Creatinine 1.26, Estimat Glomerular Filtration Rate 58, BUN/Creatinine Ratio 13, Glucose Level 114, Calcium Level 7.8, Corrected Calcium 9.1, Phosphorus Level 1.8, Magnesium Level 1.8, Total Bilirubin 0.4, Aspartate Amino Transf (AST/SGOT) 53, Alanine Aminotransferase (ALT/SGPT) 63, Alkaline Phosphatase 55, Total Protein 4.9, Albumin 2.4, Digoxin Level 1.56 09/24/22 06:10: Bedside Blood Gas pH (LAB) 7.403, Bedside Blood Gas pCO2 (LAB) 34.1, Bedside Blood Gas pO2 (LAB) 61, Bedside Blood Gas HCO3 (LAB) 21.3, POC Blood Gas Total CO2 Calc 22, Bedside Bl Gas O2 Saturation (Calc) 91, Bedside Arterial Blood Base Excess -3 09/24/22 06:11: Glucometer 104 09/24/22 10:49: Glucometer 225 09/24/22 16:36: Glucometer 117 09/24/22 20:46: Glucometer 127 09/25/22 04:14: White Blood Count 12.4, Red Blood Count 3.76, Hemoglobin 10.9, Hematocrit 32, Mean Corpuscular Volume 86, Mean Corpuscular Hemoglobin 29, Mean Corpuscular Hemoglobin Concent 34, Red Cell Distribution Width 16.0, Platelet Count 343, Mean Platelet Volume 11.0, Immature Granulocyte % (Auto) 1, Neutrophils (%) (Auto) 80, Lymphocytes (%) (Auto) 5, Monocytes (%) (Auto) 11, Eosinophils (%) (Auto) 3, Basophils (%) (Auto) 0, Neutrophils # (Auto) 9.8, Lymphocytes # (Auto) 0.7, Monocytes # (Auto) 1.4, Eosinophils # (Auto) 0.3, Basophils # (Auto) 0.0, Immature Granulocyte # (Auto) 0.1, Sodium Level 137, Potassium Level 3.9, Chloride Level 113, Carbon Dioxide Level 20, Anion Gap 4, Blood Urea Nitrogen 14, Creatinine 0.95, Estimat Glomerular Filtration Rate 81, BUN/Creatinine Ratio 15, Glucose Level 92, Calcium Level 7.6, Corrected Calcium 9.0, Magnesium Level 1.9, Total Bilirubin 0.5, Aspartate Amino Transf (AST/SGOT) 40, Alanine Aminotransferase (ALT/SGPT) 50, Alkaline Phosphatase 48, Total Protein 4.5, Albumin 2.2, Digoxin Level 1.23 09/25/22 11:44: Glucometer 128 7/11/23 15:28: Glucometer 151 09/25/22 20:24: Glucometer 156 09/26/22 05:00: White Blood Count 12.4, Red Blood Count 3.74, Hemoglobin 10.7, Hematocrit 32, Mean Corpuscular Volume 85, Mean Corpuscular Hemoglobin 29, Mean Corpuscular Hemoglobin Concent 34, Red Cell Distribution Width 16.3, Platelet Count 334, Mean Platelet Volume 10.5, Immature Granulocyte % (Auto) 1, Neutrophils (%) (Auto) 80, Lymphocytes (%) (Auto) 5, Monocytes (%) (Auto) 10, Eosinophils (%) (Auto) 3, Basophils (%) (Auto) 0, Neutrophils # (Auto) 10.0, Lymphocytes # (Auto) 0.7, Monocytes # (Auto) 1.2, Eosinophils # (Auto) 0.4, Basophils # (Auto) 0.0, Immature Granulocyte # (Auto) 0.1, Sodium Level 135, Potassium Level 4.0, Chloride Level 111, Carbon Dioxide Level 20, Anion Gap 4, Blood Urea Nitrogen 15, Creatinine 0.87, Estimat Glomerular Filtration Rate 87, BUN/Creatinine Ratio 17, Glucose Level 96, Calcium Level 7.6, Corrected Calcium 9.0, Magnesium Level 1.8, Total Bilirubin 0.7, Aspartate Amino Transf (AST/SGOT) 35, Alanine Aminotransferase (ALT/SGPT) 41, Alkaline Phosphatase 54, Total Protein 4.5, Alb umin 2.2, Digoxin Level 0.97 09/26/22 10:18: Glucometer 167 09/26/22 15:33: Glucometer 125 09/26/22 20:39: Glucometer 196 09/27/22 04:35: Glucometer 115 09/27/22 04:36: White Blood Count 14.0, Red Blood Count 3.74, Hemoglobin 10.9, Hematocrit 32, Mean Corpuscular Volume 85, Mean Corpuscular Hemoglobin 29, Mean Corpuscular Hemoglobin Concent 34, Red Cell Distribution Width 15.9, Platelet Count 417, Mean Platelet Volume 10.9, Immature Granulocyte % (Auto) 1, Neutrophils (%) (Auto) 81, Lymphocytes (%) (Auto) 5, Monocytes (%) (Auto) 10, Eosinophils (%) (Auto) 2, Basophils (%) (Auto) 0, Neutrophils # (Auto) 11.3, Lymphocytes # (Auto) 0.7, Monocytes # (Auto) 1.4, Eosinophils # (Auto) 0.3, Basophils # (Auto) 0.0, Immature Granulocyte # (Auto) 0.2, Sodium Level 135, Potassium Level 4.0, Chloride Level 107, Carbon Dioxide Level 21, Anion Gap 7, Blood Urea Nitrogen 17, Creatinine 0.93, Estimat Glomerular Filtration Rate 83, BUN/Creatinine Ratio 18, Glucose Level 119, Calcium Level 8.0, Corrected Calcium 9.4, Magnesium Level 1.9, Total Bilirubin 0.6, Aspartate Amino Transf (AST/SGOT) 35, Alanine Aminotransferase (ALT/SGPT) 37, Alkaline Phosphatase 66, Total Protein 4.7, A lbumin 2.2, Digoxin Level 0.84 09/27/22 10:52: Glucometer 194 Discharge Home Medications: Active Scripts Active Enalapril Maleate 2.5 Mg Tablet 2.5 Mg PO BID Metoprolol Succinate 25 Mg Tab.er.24h 25 Mg PO DAILY Atorvastatin Calcium 80 Mg Tablet 80 Mg PO HS Amiodarone HCl 200 Mg Tablet 200 Mg PO BID Eliquis (Apixaban) 5 Mg Tablet 5 Mg PO BID Imodium A-D (Loperamide HCl) 2 Mg Capsule 2 Mg PO EVERY 3 HOURS PRN MDD 16MG Glimepiride 1 Mg Tablet 1 Mg PO DAILY Zyrtec (Cetirizine HCl) 10 Mg Tablet 10 Mg PO DAILY Tylenol Extra Strength (Acetaminophen) 500 Mg Tablet 1,000 Mg PO Q6H PRN Ferrous Sulfate 325 Mg (65 Mg Iron) Tablet 325 Mg PO Q48H Vitamin D3 (Cholecalciferol (Vitamin D3)) 50 Mcg (2000 Unit) Capsule 50 Mcg PO DAILY Omeprazole 20 Mg Capsule.dr 20 Mg PO DAILY Furosemide 40 Mg Tablet 40 Mg PO Q48H Aspirin EC (Aspirin) 81 Mg Tablet.dr 81 Mg PO HS Methimazole 5 Mg Tablet 5 Mg PO HS Instructions to patient/family Please see electronic discharge instructions given to patient. Diagnosis/Problems Diagnosis/Problems (1) Elevated digoxin level Status: Acute (2) Multiple falls Status: Acute GRISELDA SANTOS DO Sep 27, 2022 10:55
--- NOTE | 2022-09-27 11:00 | Occupational Ther Daily Note ---
OT Current Status-Daily Note Subjective Agreeable to participant in therapy this morning. Mental Status/Objective Patient Orientation: Person ADL-Treatment Therapy Code Descriptions/Definitions Functional [place] Measure: 0=Not Assessed/NA 4=Minimal Assistance 1=Total Assistance 5=Supervision or Setup 2=Maximal Assistance 6=Modified [place] 3=Moderate Assistance 7=Complete IndependenceSCALE: Activities may be completed with or without assistive devices. 1-Vwotrwrrzy-ninhddy completes the activity by him/herself with no assistance from a helper. 5-Set-up or Clean-up Assistance-helper sets up or cleans up; patient completes activity. [place] assists only prior to or following the activity. 4-Supervision or Touching Assistance-helper provides verbal cues and/or touching/steadying and/or contact guard assistance as patient completes activity. Assistance may be provided throughout the activity or intermittently. 3-Partial/Moderate Assistance-helper does LESS THAN HALF the effort. [place] lifts, holds or supports trunk or limbs, but provides less than half the effort. 2-Substantial/Maximal Assistance-helper does MORE THAN HALF the effort. [place] lifts or holds trunk or limbs and provides more than half the effort. 3-Fqfjlfdek-rzrhsy does ALL the effort. Patient does none of the effort to complete the activity. Or, the assistance of 2 or more helpers is required for the patient to complete the activity. If activity was not attempted, code reason: 7-Patient Refused. 9-Not Applicable-not attempted and the patient did not perform the activity before the current illness, exacerbation or injury. 10-Not Attempted due to Environmental Limitations-(lack of equipment, weather restraints, etc.). 88-Not Attempted due to Medical Conditions or Safety Concerns. Other Treatment Functional activity to increase balance and endurance for ADL performance at [facility] Education OT Patient Education: Correct positioning, Exercise program, Progress toward Goal/Update tx plan, Purpose of tx/functional activities, Reviewed precautions, Rehab process, Safety issues Teaching Recipient: Patient Teaching Methods: Demonstration, Discussion Response to Teaching: Verbalize Understanding, Reinforcement Needed OT Administrative Library Assistant Goals Administrative Library Assistant Goals Eating (QC): 6 Oral Hygiene (QC): 6 Toileting Hygiene (QC): 4 Shower/Bathe Self (QC): 4 Upper Body Dressing (QC): 4 Lower Body Dressing (QC): 4 On/Off Footwear (QC): 4 1=Demonstrate adherence to instructed precautions during ADL tasks. 2=Patient will verbalize/demonstrate understanding of assistive devices/modifications for ADL. 3=Patient will improve strength/tolerance for activity to enable patient to perform ADL's. OT Education/Plan Discharge Recommendations Plan/Recommendations: Continue POC Treatment Plan/Plan of Care Patient would benefit from OT for education, treatment and training to promote independence in ADL's, mobility, safety and/or upper extremity function for ADL's. Plan of Care: ADL Retraining, Caregiver Training, Concurrent Therapy, Functional Mobility, Group Exercise/Act as Ind, UE Funct Exercise/Act, UE Neuromus Re-Ed/Coord Treatment Duration: Sep 28, 2022 Frequency: 3 times per week (3-5 times per week) Rehab Potential: Guarded Time Start Time: 09:44 Stop Time: 09:55 DATE: Sep 27, 2022 Total Time Billed (hr/min): 11 Billed Treatment Time FA 11 min CATARINO ARTHUR OT Sep 27, 2022 11:00
[2022-09-27 11:24] VITALS: BP 103/52
[2022-09-27 13:54] VITALS: BP 103/52
--- NOTE | 2022-09-27 17:00 | Progress Note - Cardiology ---
Cardiology SOAP Progress Note Subjective: Gen weakness Unchanged focal weakness and speech impairment No cp or palp or syncope No shortness of breath at rest No leg swelling No n/v/d Objective: I&O/Vital Signs 09/27/22 09/27/22 09/27/22 09/27/22 07:23 07:41 08:15 09:42 Temp 36.5 Pulse 63 65 Resp 18 B/P (MAP) 122/60 (80) Pulse Ox 91 93 85 O2 Delivery Nasal Cannula Room Air Nasal Cannula O2 Flow Rate 1.00 1.00 09/27/22 09/27/22 09/27/22 09/27/22 09:50 11:24 13:02 13:54 Temp 36.9 36.9 Pulse 75 73 73 Resp 16 16 B/P (MAP) 103/52 (69) 103/52 Pulse Ox 92 90 90 O2 Delivery Nasal Cannula Room Air Room Air O2 Flow Rate 2.00 2.00 09/27/22 00:00 Intake Total 1580 ml Output Total 550 ml Balance 1030 ml Weight (Pounds): 190 Weight (Ounces): 2.0 Weight (Calculated Kilograms): 86.354571 Constitutional: AAO x 3, well-developed, well-nourished Respiratory: No accessory muscle use; chest expansion is symmetric, chest is bilaterally symmetric, other (fair to good, bilateral air entry that is diminished at the bases) Cardiovascular: regular rate-rhythm, S1 and S2, systolic murmur (soft RENATO at card base) Gastrointestional: No tender; soft; No guarding, No rebound; audible bowel sounds Extremities: No clubbing, No cyanosis, No significant edema Neurologic/Psychiatric: oriented x 3, other (R leg and arm weakness) Results/Procedures: Labs Laboratory Tests 09/26/22 20:39: Glucometer 196H 09/27/22 04:35: Glucometer 115H 09/27/22 04:36: White Blood Count 14.0H, Red Blood Count 3.74L, Hemoglobin 10.9L, Hematocrit 32L , Mean Corpuscular Volume 85, Mean Corpuscular Hemoglobin 29, Mean Corpuscular Hemoglobin Concent 34, Red Cell Distribution Width 15.9H, Platelet Count 417H, Mean Platelet Volume 10.9, Immature Granulocyte % (Auto) 1, Neutrophils (%) (Auto) 81H, Lymphocytes (%) (Auto) 5L, Monocytes (%) (Auto) 10, Eosinophils (%) (Auto) 2, Basophils (%) (Auto) 0, Neutrophils # (Auto) 11.3H, Lymphocytes # (Auto) 0.7L, Monocytes # (Auto) 1.4H, Eosinophils # (Auto) 0.3, Basophils # (Auto) 0.0, Immature Granulocyte # (Auto) 0.2H, Sodium Level 135, Potassium Level 4.0, Chloride Level 107, Carbon Dioxide Level 21, Anion Gap 7, Blood Urea Nitrogen 17, Creatinine 0.93, Estimat Glomerular Filtration Rate 83, BUN/Creatinine Ratio 18, Glucose Level 119H, Calcium Level 8.0L, Corrected Calcium 9.4, Magnesium Level 1.9, Total Bilirubin 0.6, Aspartate Amino Transf (AST/SGOT) 35H, Alanine Aminotransferase (ALT/SGPT) 37, Alkaline Phosphatase 66, Total Protein 4.7L, Albumin 2.2L, Digoxin Level 0.84 09/27/22 10:52: Glucometer 194H Microbiology 09/23/22 MRSA Screen - Final, Complete MRSA not isolated Laboratory Tests 09/26/22 05:00 09/27/22 04:36 A/P: Assessment: Altered mental status of undetermined etiology - managed by Dr Duran Chronic gen weakness and propensity to falls - managed by Dr Duran 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 Normal left ventricular size with hypokinesia in the inferior wall and inferolateral wall, ejection fraction 33% - Last card cath by Dr Rosenberg in July 2022: Left Main is free of obstructive disease. Left Anterior Descending is tortuous with mild disease nonobstructive disease. Left Circumflex is occluded at the midportion. 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 Carotid artery stenosis - status post left CEA in 2011 - CTA head and neck done June 2018 revealed right moderate ICA stenosis. 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
== END 2022-09-27 13:40 | DRG 281 ==
LOC: EDUNIT# 02:42 → ER 02:43 → CSD 08:41 → INTOOBSV 08:41 → ICU 12:27 → OBSVTOIN 09-24 11:16 → 4TH 09-24 15:26
PROVIDERS: ADMIT Internal Medicine; ATTEND Internal Medicine
DX: I95.9 Hypotension, unspecified (principal); I21.A1 Myocardial infarction type 2; I13.0 Hypertensive heart and chronic kidney disease with heart failure and stage 1 through stage 4 chronic kidney disease, or unspecified chronic kidney disease; I42.9 Cardiomyopathy, unspecified; I69.351 Hemiplegia and hemiparesis following cerebral infarction affecting right dominant side; W19.XXXA Unspecified fall, initial encounter; Z79.82 Long term (current) use of aspirin; Z79.899 Other long term (current) drug therapy; I50.9 Heart failure, unspecified; E78.00 Pure hypercholesterolemia, unspecified; K21.9 Gastro-esophageal reflux disease without esophagitis; I11.0 Hypertensive heart disease with heart failure; I25.10 Atherosclerotic heart disease of native coronary artery without angina pectoris; M19.90 Unspecified osteoarthritis, unspecified site; Z85.038 Personal history of other malignant neoplasm of large intestine; Z85.820 Personal history of malignant melanoma of skin; Z95.810 Presence of automatic (implantable) cardiac defibrillator; E86.0 Dehydration; Z79.01 Long term (current) use of anticoagulants; Z95.5 Presence of coronary angioplasty implant and graft; Z87.891 Personal history of nicotine dependence; N18.9 Chronic kidney disease, unspecified; E11.22 Type 2 diabetes mellitus with diabetic chronic kidney disease; T46.0X5A Adverse effect of cardiac-stimulant glycosides and drugs of similar action, initial encounter; I48.0 Paroxysmal atrial fibrillation; I69.320 Aphasia following cerebral infarction; I65.22 Occlusion and stenosis of left carotid artery; J44.9 Chronic obstructive pulmonary disease, unspecified; E04.1 Nontoxic single thyroid nodule; N18.32 Chronic kidney disease, stage 3b
CPT/HCPCS: 36415; 36600; 70450; 70551; 71045; 72170; 80053; 80162; 81000; 82550; 82553; 82805; 82947; 83605; 83735; 83874; 84100; 84443; 84484; 85007; 85025; 85027; 85610; 85730; 87081; 93005; 93041; 93306; 94640; 94664; 94760; G0378

== ENCOUNTER 2022-12-01 16:19 | Emergency (ER) | payer MEDICARE, MEDICAID ==
[~2022-12-01] VITALS: Ht 167 cm; Wt 64.0 kg
[~2022-12-01 16:19] MED LIST changes: +ATOR80TA76 PO; +GLIM1TAB4 PO; +LOPE-175 PO; +MTP25TSR PO
[2022-12-01 17:08] LABS: BASOPHILS % (AUTO) 0 % (0-10); EOSINOPHILS # (AUTO) 0.2 10^3/uL (0.0-0.3); EOSINOPHILS % (AUTO) 1 % (0-10); HEMATOCRIT 34 % (40-54); HEMOGLOBIN 11.4 g/dL (13.3-17.7); LYMPHOCYTES # (AUTO) 0.7 10^3/uL (1.0-4.0); LYMPHOCYTES % (AUTO) 4 % (12-44); MEAN CORPUSCULAR HEMOGLOBIN 29 pg (25-34); MEAN CORPUSCULAR HGB CONC 33 g/dL (32-36); MEAN CORPUSCULAR VOLUME 85 fL (80-99); MEAN PLATELET VOLUME 9.9 fL (9.0-12.2); MONOCYTES # (AUTO) 1.4 10^3/uL (0.0-1.0); MONOCYTES % (AUTO) 8 % (0-12); NEUTROPHILS # (AUTO) 14.7 10^3/uL (1.8-7.8); NEUTROPHILS % (AUTO) 86 % (42-75); PLATELET COUNT 536 10^3/uL (130-400); WHITE BLOOD COUNT 17.2 10^3/uL (4.3-11.0)
[2022-12-01 17:15] LABS: POTASSIUM 3.9 MMOL/L (3.6-5.0)
[2022-12-01 17:16] LABS: CALCIUM 8.6 MG/DL (8.5-10.1)
[2022-12-01 17:20] LABS: CREATININE SERUM 1.02 MG/DL (0.60-1.30)
[2022-12-01 17:27] LABS: ANISOCYTOSIS MODERATE; BAND NEUTROPHILS 0 %; BASOPHILS % (MANUAL) 0 %; EOSINOPHILS % (MANUAL) 1 %; LYMPHOCYTES % (MANUAL) 4 %; MONOCYTES % (MANUAL) 4 %; NEUTROPHILS % (MANUAL) 91 %; POLYCHROMASIA SLIGHT
[2022-12-01 17:31] LABS: CLARITY,URINE CLEAR; COLOR,URINE ORANGE; PROTEIN,URINE 2+ (NEGATIVE)
[2022-12-01 17:32] LABS: BACTERIA,URINE LARGE /HPF; BILIRUBIN,URINE 1+ (NEGATIVE); GLUCOSE, URINE (UA) NEGATIVE (NEGATIVE); KETONES,URINE NEGATIVE (NEGATIVE); LEUKOCYTE ESTERASE ,URINE NEGATIVE (NEGATIVE); NITRITE,URINE NEGATIVE (NEGATIVE); SQUAMOUS EPITHELIAL CELL,UR 0-2 /HPF
[2022-12-01] MEDS ORDERED: CIPROFLOXACIN 500 MG TABLET PO STA (17:37)
--- NOTE | 2022-12-01 17:42 | ED General ---
General Chief Complaint: General Problems/Pain Stated Complaint: WEAKNESS Nursing Triage Note: pt to ed per ems from [facility], states he was going to the bathroom and felt weak. had stroke in 2019 and has right sided weakness and facial droop from that. states the nurse thought his blood pressure was low so she called an ambulance Source of Information: Patient Exam Limitations: Other (previous stroke affects speech/cognition) History of Present Illness Date Seen by Provider: Dec 01, 2022 Time Seen by Provider: 16:33 Initial Comments Patient is an 82-year-old male with a history of CVA affecting his right side and presents to the emergency department with a chief complaint of generalized weakness. He lives at [facility], they were concerned about low blood pressure. Patient states that he actually feels "okay". He does endorse some weakness earlier in the afternoon and states that he really did not want to go have dinner this evening. He denies any complaints of pain. He was recently on antibiotics for urinary tract infection. He states that he completed those 3 days ago. He denies dysuria, urgency or frequency. There is a strong urine smell from the patient. No specific nausea or vomiting. No diarrhea. No fever. Patient has a moderately difficult time expressing himself due to his prior stroke. Timing/Duration: 1-2 Days Associated Systoms: Malaise, Weakness Allergies and Home Medications Allergies Coded Allergies: No Known Drug Allergies (Verified , 05/21/19) Patient Home Medication List Home Medication List Reviewed: Yes Acetaminophen (Tylenol Extra Strength) 500 Mg Tablet, 1,000 MG PO Q6H PRN for PAIN-MILD (1-4) Prescribed by: GRISELDA SANTOS on 09/27/22 1053 Amiodarone HCl (Amiodarone HCl) 200 Mg Tablet, 200 MG PO BID Prescribed by: GRISELDA SANTOS on 09/27/22 1053 Apixaban (Eliquis) 5 Mg Tablet, 5 MG PO BID Prescribed by: GRISELDA SANTOS on 09/27/22 1053 Aspirin (Aspirin EC) 81 Mg Tablet.dr, 81 MG PO HS Prescribed by: GRISELDA SANTOS on 09/27/22 1053 Atorvastatin Calcium (Atorvastatin Calcium) 80 Mg Tablet, 80 MG PO HS Prescribed by: GRISELDA SANTOS on 09/27/22 1053 Cetirizine HCl (Zyrtec) 10 Mg Tablet, 10 MG PO DAILY Prescribed by: GRISELDA SANTOS on 09/27/22 105 Cholecalciferol (Vitamin D3) (Vitamin D3) 50 Mcg (2000 Unit) Capsule, 50 MCG PO DAILY Prescribed by: GRISELDA SANTOS on 09/27/22 105 Ciprofloxacin HCl (Ciprofloxacin HCl) 500 Mg Tablet, 500 MG PO BID Prescribed by: CESILIA MERCHANT on 12/01/22 190 Enalapril Maleate (Enalapril Maleate) 2.5 Mg Tablet, 2.5 MG PO BID Prescribed by: GRISELDA SANTOS on 09/27/22 105 Ferrous Sulfate (Ferrous Sulfate) 325 Mg (65 Mg Iron) Tablet, 325 MG PO Q48H Prescribed by: GRISELDA SANTOS on 09/27/22 105 Furosemide (Furosemide) 40 Mg Tablet, 40 MG PO Q48H Prescribed by: GRISELDA SANTOS on 09/27/22 105 Glimepiride (Glimepiride) 1 Mg Tablet, 1 MG PO DAILY Prescribed by: GRISELDA SANTOS on 09/27/22 105 Loperamide HCl (Imodium A-D) 2 Mg Capsule, 2 MG PO EVERY 3 HOURS PRN for LOOSE STOOLS Prescribed by: GRISELDA SANTOS on 09/27/22 105 Methimazole (Methimazole) 5 Mg Tablet, 5 MG PO HS Prescribed by: GRISELDA SANTOS on 09/27/22 105 Metoprolol Succinate (Metoprolol Succinate) 25 Mg Tab.er.24h, 25 MG PO DAILY Prescribed by: GRISELDA SANTOS on 09/27/22 105 Omeprazole (Omeprazole) 20 Mg Capsule.dr, 20 MG PO DAILY Prescribed by: GRISELDA SANTOS on 09/27/22 105 Review of Systems Review of Systems Constitutional: see HPI EENTM: no symptoms reported Respiratory: no symptoms reported Cardiovascular: no symptoms reported Gastrointestinal: no symptoms reported Genitourinary: no symptoms reported Skin: no symptoms reported Psychiatric/Neurological: Other (malaise; weakness) Past Egzupiz-Wiwipf-Ammxnb Hx Patient Social History Tobacco Use?: No Substance use?: No Alcohol Use?: No Immunizations Up To Date Tetanus Booster (TDap): Unknown First/Initial COVID19 Vaccinat: "3 shots" Second COVID19 Vaccination Yamil: "3 shots" Third COVID19 Vaccination Date: "3 shots" Seasonal Allergies Seasonal Allergies: No Past Medical History Surgery/Hospitalization HX: HEART FAILURE, HTN, ANEMIA, CEREBRAL INFARCTION WITH APHASIA, HYPERCHOLESTEROLEMIA, NIDDM, GERD Surgeries: Yes (SEE BELOW) Abdominal, Bowel Surgery, Cardiac, Coronary Stent, Defibrillator Respiratory: No Cardiac: Yes (DEFIBRILLATOR; CARDIAC CATHS-STENTS; V-TACH) Atrial Fibrillation, Cardiomyopathy, Chronic Edema/Swelling, Coronary Artery Disease, High Cholesterol, Hypertension, Irregular Heartbeat Neurological: Yes (CVA WITH RIGHT SIDE WEAKNESS AND SOME APHASIA 03/2018) Stroke Reproductive Disorders: No Genitourinary: Yes (INCONTINENCE) Renal Failure Gastrointestinal: Yes (COLON CANCER DX 05/2019) Gastroesophageal Reflux, Polyps Musculoskeletal: Yes (Rt hemiparesis since CVA 03/2018) Arthritis Endocrine: Yes Diabetes, Non-Insulin dep HEENT: Yes (DENTURES, GLASSES; STATES HE HAS CATARACTS, BUT HAS NOT HAD SURGERY) Cataract Loss of Vision: Denies Hearing Impairment: Denies Cancer: Yes (R COLON RESECTION 05/2019) Skin, Melanoma, Colon Did You Recieve Any Treatments: Yes What Type of Treatment Did You: Surgical Intervention Psychosocial: No Integumentary: No Blood Disorders: Yes (ANEMIA) Adverse Reaction/Blood Tranf: No Family Medical History Patient reports no known family medical history. Diabetes PSH: -SKIN CANCER REMOVED WITH SKIN GRAFT -CARDIAC CATH 2015--EXTENSIVE DISEASE, NOT AMENABLE TO INTERVENTION. -DEFIBRILLATOR -COLONOSCOPY 05/2019 -RIGHT COLON RESECTION FOR CANCER 05/28/19 -LEFT NECK SURGERY -CARDIAC STENTS CARDIAC CATH 08/15/[address] BROWN: CONCLUSION: Multiple stents in the dominant right coronary artery extending from the ostium to the bifurcation distally with patent stents with no obstructive disease Occluded obtuse marginal/mid circumflex artery, chronic with no collaterals Mild disease in the LAD Normal left ventricular end-diastolic pressure DISCUSSION AND RECOMMENDATION: Continue with medical therapy. No intervention is warranted Physical Exam Vital Signs Vital Signs - First Documented 12/01/22 12/01/22 16:24 18:59 Temp 36.4 Pulse 75 Resp 22 B/P (MAP) 117/80 (92) Pulse Ox 91 O2 Delivery Room Air Capillary Refill : Less Than 3 Seconds Height, Weight, BMI Height: 5'7.00" Weight: 190lbs. 2.0oz. [id number]; 22.00 BMI Method:Estimated General Appearance: No Apparent Distress, WD/WN, Thin Eyes: Bilateral Eye Normal Inspection, Bilateral Eye PERRL HEENT: PERRL/EOMI Neck: Normal Inspection Respiratory: Lungs Clear, Normal Breath Sounds, No Accessory Muscle Use, No Respiratory Distress Cardiovascular: Regular Rate, Rhythm, Normal Peripheral Pulses Gastrointestinal: Soft, Tenderness (mild suprapubic tenderness to palpation) Extremity: Normal Capillary Refill, Normal Inspection, Normal Range of Motion, Non Tender, No Calf Tenderness, No Pedal Edema Neurologic/Psychiatric: Alert, Oriented x3, Normal Mood/Affect, 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 normal sensation. hint of right facial droop. mild dysarthria and expressive aphasia) Progress/Results/Core Measures Suspected Sepsis SIRS Temperature: Pulse: 75 Respiratory Rate: 22 Laboratory Tests 12/01/22 16:58: White Blood Count 17.2H Blood Pressure 117 /80 Mean: 92 Laboratory Tests 12/01/22 16:58: Creatinine 1.02, Platelet Count 536H Results/Orders Lab Results Laboratory Tests Test 12/01/22 16:58 12/01/22 17:10 Range/Units White Blood Count 17.2 H 4.3-11.0 10^3/uL Red Blood Count 4.00 L 4.30-5.52 10^6/uL Hemoglobin 11.4 L 13.3-17.7 g/dL Hematocrit 34 L 40-54 % Mean Corpuscular Volume 85 80-99 fL Mean Corpuscular Hemoglobin 29 25-34 pg Mean Corpuscular Hemoglobin Concent 33 32-36 g/dL Red Cell Distribution Width 18.4 H 10.0-14.5 % Platelet Count 536 H 130-400 10^3/uL Mean Platelet Volume 9.9 9.0-12.2 fL Immature Granulocyte % (Auto) 1 % Neutrophils (%) (Auto) 86 H 42-75 % Lymphocytes (%) (Auto) 4 L 12-44 % Monocytes (%) (Auto) 8 0-12 % Eosinophils (%) (Auto) 1 0-10 % Basophils (%) (Auto) 0 0-10 % Neutrophils # (Auto) 14.7 H 1.8-7.8 10^3/uL Lymphocytes # (Auto) 0.7 L 1.0-4.0 10^3/uL Monocytes # (Auto) 1.4 H 0.0-1.0 10^3/uL Eosinophils # (Auto) 0.2 0.0-0.3 10^3/uL Basophils # (Auto) 0.0 0.0-0.1 10^3/uL Immature Granulocyte # (Auto) 0.2 H 0.0-0.1 10^3/uL Neutrophils % (Manual) 91 % Lymphocytes % (Manual) 4 % Monocytes % (Manual) 4 % Eosinophils % (Manual) 1 % Basophils % (Manual) 0 % Band Neutrophils 0 % Polychromasia SLIGHT Anisocytosis MODERATE Sodium Level 135 135-145 MMOL/L Potassium Level 3.9 3.6-5.0 MMOL/L Chloride Level 101 98-107 MMOL/L Carbon Dioxide Level 21 21-32 MMOL/L Anion Gap 13 5-14 MMOL/L Blood Urea Nitrogen 27 H 7-18 MG/DL Creatinine 1.02 0.60-1.30 MG/DL Estimat Glomerular Filtration Rate 74 BUN/Creatinine Ratio 26 Glucose Level 180 H 70-105 MG/DL Calcium Level 8.6 8.5-10.1 MG/DL Urine Color ORANGE Urine Clarity CLEAR Urine pH 5.0 5-9 Urine Specific [place] 1.020 1.016-1.022 Urine Protein 2+ H NEGATIVE Urine Glucose (UA) NEGATIVE NEGATIVE Urine Ketones NEGATIVE NEGATIVE Urine Nitrite NEGATIVE NEGATIVE Urine Bilirubin 1+ H NEGATIVE Urine Urobilinogen 2.0 < = 1.0 MG/DL Urine Leukocyte Esterase NEGATIVE NEGATIVE Urine RBC (Auto) TRACE H NEGATIVE Urine RBC NONE /HPF Urine WBC 5-10 H /HPF Urine Squamous Epithelial Cells 0-2 /HPF Urine Crystals NONE /LPF Urine Bacteria LARGE H /HPF Urine Casts NONE /LPF Urine Mucus NEGATIVE /LPF Urine Culture Indicated YES My Orders Orders - DUSTIN KIRBY MD Cbc With Automated Diff (12/01/22 16:43) Basic Metabolic Panel (12/01/22 16:43) Ua Culture If Indicated (12/01/22 16:43) Manual Differential (12/01/22 16:58) Urine Culture (12/01/22 17:10) Ciprofloxacin Tablet (Ciprofloxacin Tabl (12/01/22 17:37) Vital Signs/I&O 12/01/22 12/01/22 16:24 18:59 Temp 36.4 Pulse 75 68 Resp 22 18 B/P (MAP) 117/80 (92) 113/53 Pulse Ox 91 95 O2 Delivery Room Air Capillary Refill : Less Than 3 Seconds Blood Pressure Mean: 92 Progress Note : Time: 17:50 Progress Note Patient seen and evaluated by me. Evaluation today includes physical exam, CBC, BMP and UA. Pertinent physical exam findings include elderly thin, chronically ill appearing gentleman in NAD. His VS are stable. Afebrile, normal O2 sats on RA. Heart sounds regular, lungs are clear. He has some mild suprapubic tenderness to palpation. He has a strong urine smell about him. Some mild right sided extremity weakness but overall good strength and intact sensation. Also mild right sided facial droop. He is a little dysarthric and has some expressive aphasia. DDx based on H&P includes urinary tract infection, dehydration. Labs independently reviewed and interpreted by me. HIs CBC shows an elevated WBC of 17.2 with 86% segmented neutrophils. His H&H are 11.4 and 34. elevated platelet count at 536. HIs BMP is normal with an elevated glucose of 180. Normal renal function. Urine shows 2+ protein, 1+ bili, trace RBC, 5-10 WBC per hpf and large bacteria. It appears on review of med record from the intermediate he just got off antibiotics for a UTI and the patient comfirms this. In light of his ongoing belly discomfort and generally not feeling well with this urine - will put him back on antibiotics and await cx results. HIs VS are stable, he is at his mental baseline. I do not think that he needs admitted at this time. Given first dose of Cipro 500mg here in the ED and will be transfe rred back to his NH. Departure Impression Primary Impression: UTI (urinary tract infection) Qualified Codes: N39.0 - Urinary tract infection, site not specified Disposition: 01 HOME, SELF-CARE Condition: Stable Departure-Patient Inst. Decision time for Depature: 17:52 Referrals: GRISELDA SANTOS DO (PCP/Family) Primary Care Physician Patient Instructions: Urinary Tract Infection, Adult (DC) Add. Discharge Instructions: Be sure and drink plenty of fluids to stay well-hydrated. Take the antibiotics ciprofloxacin 500 mg twice a day for 7 days. Make sure you are getting adequate nutrition and rest. If you develop any symptoms of fever, abdominal pain, nausea or vomiting please return to the emergency department for reevaluation Scripts Ciprofloxacin HCl (Ciprofloxacin HCl) 500 Mg Tablet 500 MG PO BID for 7 Days, #14 TAB Prov: RUDDY DILLARD 12/01/22 Copy Copies To 1: GRISELDA SANTOS KATHRYN M MD Dec 01, 2022 17:42
[2022-12-01 18:59] VITALS: BP 113/53
[2022-12-01] MEDS ORDERED: CIPR500T5 PO (19:09)
[2022-12-03] MEDS ORDERED: CEFD300C3 PO (13:09)
== END 2022-12-01 18:59 | disposition home or self-care (01) ==
LOC: EDUNIT# 16:19 → ER 16:20
DX: N39.0 Urinary tract infection, site not specified (principal); I63.9 Cerebral infarction, unspecified; G81.91 Hemiplegia, unspecified affecting right dominant side; R29.810 Facial weakness; R47.1 Dysarthria and anarthria; R47.01 Aphasia; I13.0 Hypertensive heart and chronic kidney disease with heart failure and stage 1 through stage 4 chronic kidney disease, or unspecified chronic kidney disease; I50.9 Heart failure, unspecified; N18.9 Chronic kidney disease, unspecified
CPT/HCPCS: 36415; 80048; 81000; 85007; 85027; 87077; 87088; 87186

== ENCOUNTER 2023-01-15 13:04 | Emergency (ER) | payer MEDICARE, MEDICAID ==
[~2023-01-15] VITALS: Ht 167.7 cm; Wt 59.8 kg
[~2023-01-15 13:04] MED LIST changes: +CIPR500T5 PO
--- NOTE | 2023-01-15 13:17 | ED Cardiac General ---
History of Present Illness General Chief Complaint: Cardiac/General Problems Stated Complaint: PACEMAKER ISSUES Source: patient History of Present Illness Date Seen by Provider: Jan 15, 2023 Time Seen by Provider: 13:17 Initial Comments Patient is an 82-year-old male who presents to the emergency room with a chief complaint of defibrillator shocks onset 2 days ago. He lives at [facility] and apparently told his nurse about it today who called Dr. Rosenberg and advised t hat the patient be sent to the emergency room for evaluation. The patient states that he has not received any shocks today. He cannot really describe what they feel like. He has quite an difficult time expressing himself due to prior stroke and expressive aphasia. Right-sided hemiparesis. He denies chest pain currently, shortness of breath. No cough. No nausea or vomiting. He has had diarrhea for the last 3 weeks. He states its "all the time". No abdominal pain. No nausea. He is currently basically asymptomatic with a blood pressure of 112/95, heart rate of 80. Timing/Duration: 1-2 days Prior CP/Workup: cardiac cath (Severe coronary artery disease) NTG SL INDEPENDENT VIDEO PRODUCER: No ASA po INDEPENDENT VIDEO PRODUCER: No Associated Systoms: Other (Diarrhea) Allergies and Home Medications Allergies Coded Allergies: No Known Drug Allergies (Verified , 05/21/19) Patient Home Medication List Home Medication List Reviewed: Yes Acetaminophen (Tylenol Extra Strength) 500 Mg Tablet, 1,000 MG PO Q6H PRN for PAIN-MILD (1-4) Prescribed by: GRISELDA SANTOS on 09/27/22 1053 Amiodarone HCl (Amiodarone HCl) 200 Mg Tablet, 200 MG PO BID Prescribed by: GRISELDA SANTOS on 09/27/22 1053 Apixaban (Eliquis) 5 Mg Tablet, 5 MG PO BID Prescribed by: GRISELDA SANTOS on 09/27/22 1053 Aspirin (Aspirin EC) 81 Mg Tablet., 81 MG PO HS Prescribed by: GRISELDA SANTOS on 09/27/22 105 Atorvastatin Calcium (Atorvastatin Calcium) 80 Mg Tablet, 80 MG PO HS Prescribed by: GRISELDA SANTOS on 09/27/22 1053 Cefdinir (Cefdinir) 300 Mg Capsule, 300 MG PO BID Prescribed by: WHIT FISCHER on 12/03/22 1309 Cetirizine HCl (Zyrtec) 10 Mg Tablet, 10 MG PO DAILY Prescribed by: GRISELDA SANTOS on 09/27/22 105 Cholecalciferol (Vitamin D3) (Vitamin D3) 50 Mcg (2000 Unit) Capsule, 50 MCG PO DAILY Prescribed by: GRISELDA SANTOS on 09/27/22 105 Ciprofloxacin HCl (Ciprofloxacin HCl) 500 Mg Tablet, 500 MG PO BID Prescribed by: CESILIA MERCHANT on 12/01/22 190 Enalapril Maleate (Enalapril Maleate) 2.5 Mg Tablet, 2.5 MG PO BID Prescribed by: GRISELDA SANTOS on 09/27/22 105 Ferrous Sulfate (Ferrous Sulfate) 325 Mg (65 Mg Iron) Tablet, 325 MG PO Q48H Prescribed by: GRISELDA SANTOS on 09/27/22 105 Furosemide (Furosemide) 40 Mg Tablet, 40 MG PO Q48H Prescribed by: GRISELDA SANTOS on 09/27/22 105 Glimepiride (Glimepiride) 1 Mg Tablet, 1 MG PO DAILY Prescribed by: GRISELDA SANTOS on 09/27/22 105 Loperamide HCl (Imodium A-D) 2 Mg Capsule, 2 MG PO EVERY 3 HOURS PRN for LOOSE STOOLS Prescribed by: GRISELDA SANTOS on 09/27/22 105 Methimazole (Methimazole) 5 Mg Tablet, 5 MG PO HS Prescribed by: GRISELDA SANTOS on 09/27/22 105 Metoprolol Succinate (Metoprolol Succinate) 25 Mg Tab.er.24h, 25 MG PO DAILY Prescribed by: GRISELDA SANTOS on 09/27/22 105 Omeprazole (Omeprazole) 20 Mg Capsule.dr, 20 MG PO DAILY Prescribed by: GRISELDA SANTOS on 09/27/22 105 Review of Systems Review of Systems Constitutional: see HPI Respiratory: No Symptoms Reported Cardiovascular: Other (Defibrillator "shocks") Gastrointestinal: Diarrhea Genitourinary: No Symptoms Reported Musculoskeletal: no symptoms reported Skin: no symptoms reported Psychiatric/Neurological: No Symptoms Reported Past Znarhoj-Thrdnj-Aupmto Hx Immunizations Up To Date Tetanus Booster (TDap): Unknown First/Initial COVID19 Vaccinat: "3 shots" Second COVID19 Vaccination Yamil: "3 shots" Third COVID19 Vaccination Date: "3 shots" Seasonal Allergies Seasonal Allergies: No Past Medical History Surgery/Hospitalization HX: HEART FAILURE, HTN, ANEMIA, CEREBRAL INFARCTION WITH APHASIA, HYPERCHOLESTEROLEMIA, NIDDM, GERD Surgeries: Yes (SEE BELOW) Abdominal, Bowel Surgery, Cardiac, Coronary Stent, Defibrillator Respiratory: No Cardiac: Yes (DEFIBRILLATOR; CARDIAC CATHS-STENTS; V-TACH) Atrial Fibrillation, Cardiomyopathy, Chronic Edema/Swelling, Coronary Artery Disease, High Cholesterol, Hypertension, Irregular Heartbeat Neurological: Yes (CVA WITH RIGHT SIDE WEAKNESS AND SOME APHASIA 03/2018) Stroke Reproductive Disorders: No Genitourinary: Yes (INCONTINENCE) Renal Failure Gastrointestinal: Yes (COLON CANCER DX 05/2019) Gastroesophageal Reflux, Polyps Musculoskeletal: Yes (Rt hemiparesis since CVA 03/2018) Arthritis Endocrine: Yes Diabetes, Non-Insulin dep HEENT: Yes (DENTURES, GLASSES; STATES HE HAS CATARACTS, BUT HAS NOT HAD SURGERY) Cataract Loss of Vision: Denies Hearing Impairment: Denies Cancer: Yes (R COLON RESECTION 05/2019) Skin, Melanoma, Colon Did You Recieve Any Treatments: Yes What Type of Treatment Did You: Surgical Intervention Psychosocial: No Integumentary: No Blood Disorders: Yes (ANEMIA) Adverse Reaction/Blood Tranf: No Family Medical History Patient reports no known family medical history. Diabetes PSH: -SKIN CANCER REMOVED WITH SKIN GRAFT -CARDIAC CATH 2015--EXTENSIVE DISEASE, NOT AMENABLE TO INTERVENTION. -DEFIBRILLATOR -COLONOSCOPY 05/2019 -RIGHT COLON RESECTION FOR CANCER 05/28/19 -LEFT NECK SURGERY -CARDIAC STENTS CARDIAC CATH 08/15/[address] ROSENBERG: CONCLUSION: Multiple stents in the dominant right coronary artery extending from the ostium to the bifurcation distally with patent stents with no obstructive disease Occluded obtuse marginal/mid circumflex artery, chronic with no collaterals Mild disease in the LAD Normal left ventricular end-diastolic pressure DISCUSSION AND RECOMMENDATION: Continue with medical therapy. No intervention is warranted Physical Exam Vital Signs Vital Signs - First Documented 01/15/23 01/15/23 13:10 16:48 Temp 35.2 Pulse 82 Resp 20 B/P (MAP) 112/95 (101) Pulse Ox 97 O2 Delivery Room Air Capillary Refill : Height, Weight, BMI Height: 5'7.00" Weight: 190lbs. 2.0oz. 86.653862ov; 22.00 BMI Method:Estimated General Appearance: No Apparent Distress, Chronically ill, Thin HEENT: PERRL/EOMI, Other (chronic right sided facial droop) Respiratory: Lungs Clear, Normal Breath Sounds, No Accessory Muscle Use, No Respiratory Distress Cardiovascular: Regular Rate, Rhythm Gastrointestinal: Non Tender, Soft Extremity: Normal Capillary Refill, Normal Inspection, Normal Range of Motion, No Pedal Edema Neurologic/Psychiatric: Alert, Oriented x3, Other (right sided hemiparesis; old stroke; dysarthria and expressive aphasia noted) Skin: Normal Color, Warm/Dry Progress/Results/Core Measures Results/Orders Lab Results Laboratory Tests Test 01/15/23 13:20 01/15/23 14:24 01/15/23 14:50 01/15/23 15:40 Range/Units White Blood Count 26.0 H 4.3-11.0 10^3/uL Red Blood Count 4.72 4.30-5.52 10^6/uL Hemoglobin 13.5 13.3-17.7 g/dL Hematocrit 39 L 40-54 % Mean Corpuscular Volume 83 80-99 fL Mean Corpuscular Hemoglobin 29 25-34 pg Mean Corpuscular Hemoglobin Concent 34 32-36 g/dL Red Cell Distribution Width 17.5 H 10.0-14.5 % Platelet Count 578 H 130-400 10^3/uL Mean Platelet Volume 9.9 9.0-12.2 fL Immature Granulocyte % (Auto) 1 % Neutrophils (%) (Auto) 92 H 42-75 % Lymphocytes (%) (Auto) 3 L 12-44 % Monocytes (%) (Auto) 3 0-12 % Eosinophils (%) (Auto) 0 0-10 % Basophils (%) (Auto) 0 0-10 % Neutrophils # (Auto) 24.0 H 1.8-7.8 10^3/uL Lymphocytes # (Auto) 0.8 L 1.0-4.0 10^3/uL Monocytes # (Auto) 0.9 0.0-1.0 10^3/uL Eosinophils # (Auto) 0.0 0.0-0.3 10^3/uL Basophils # (Auto) 0.0 0.0-0.1 10^3/uL Immature Granulocyte # (Auto) 0.3 H 0.0-0.1 10^3/uL Neutrophils % (Manual) 92 % Lymphocytes % (Manual) 3 % Monocytes % (Manual) 5 % Eosinophils % (Manual) 0 % Basophils % (Manual) 0 % Band Neutrophils 0 % Anisocytosis SLIGHT Target Cells SLIGHT Prothrombin Time 15.0 H 12.2-14.7 SEC INR Comment 1.1 0.8-1.4 Activated Partial Thromboplast Time 40 H 24-35 SEC Sodium Level 137 135-145 MMOL/L Potassium Level 3.0 L 3.6-5.0 MMOL/L Chloride Level 95 L 98-107 MMOL/L Carbon Dioxide Level 27 21-32 MMOL/L Anion Gap 15 H 5-14 MMOL/L Blood Urea Nitrogen 19 H 7-18 MG/DL Creatinine 1.23 0.60-1.30 MG/DL Estimat Glomerular Filtration Rate 59 BUN/Creatinine Ratio 15 Glucose Level 49 *L 70-105 MG/DL Calcium Level 9.8 8.5-10.1 MG/DL Corrected Calcium 10.3 H 8.5-10.1 MG/DL Magnesium Level 2.0 1.6-2.4 MG/DL Total Bilirubin 1.8 H 0.1-1.0 MG/DL Aspartate Amino Transf (AST/SGOT) 102 H 5-34 U/L Alanine Aminotransferase (ALT/SGPT) 39 0-55 U/L Alkaline Phosphatase 334 H 40-136 U/L Troponin I < 0.028 <0.028 NG/ML Total Protein 6.5 6.4-8.2 GM/DL Albumin 3.4 3.2-4.5 GM/DL Glucometer 51 *L 105 70-110 MG/DL Urine Color CAROLINE H Urine Clarity CLOUDY Urine pH 5.5 5-9 Urine Specific [place] 1.025 H 1.016-1.022 Urine Protein 2+ H NEGATIVE Urine Glucose (UA) TRACE H NEGATIVE Urine Ketones NEGATIVE NEGATIVE Urine Nitrite NEGATIVE NEGATIVE Urine Bilirubin 2+ H NEGATIVE Urine Urobilinogen 4.0 < = 1.0 MG/DL Urine Leukocyte Esterase NEGATIVE NEGATIVE Urine RBC (Auto) NEGATIVE NEGATIVE Urine RBC NONE /HPF Urine WBC 5-10 H /HPF Urine Crystals NONE /LPF Urine Bacteria MODERATE H /HPF Urine Casts PRESENT /LPF Urine Hyaline Casts 5-10 H /LPF Urine Mucus SMALL H /LPF Urine Culture Indicated YES Test 01/15/23 17:19 Range/Units Glucometer 115 H 70-110 MG/DL My Orders Orders - DUSTIN KIRBY MD Ekg Tracing (01/15/23 13:15) Cbc And Automated Diff (01/15/23 13:24) Magnesium (01/15/23 13:24) Chest 1 View, Ap/Pa Only (01/15/23 13:24) Comprehensive Metabolic Panel (01/15/23 13:24) Protime With Inr (01/15/23 13:24) Partial Thromboplastin Time (01/15/23 13:24) O2 (01/15/23 13:24) Monitor-Rhythm Ecg Trace Only (01/15/23 13:24) Ed Iv/Invasive Line Start (01/15/23 13:24) Troponin I Nettie (01/15/23 13:24) Manual Differential (01/15/23 13:20) Ua Culture If Indicated (01/15/23 14:29) Potassium Chloride (Tablet) (Potassium C (01/15/23 15:00) Urine Culture (01/15/23 14:50) Ondansetron Oral Dissolve Tab (Ondanset (01/15/23 18:30) Medications Given in ED Current Medications Medications Dose Ordered Sig/Brain Route Start Time Stop Time Status Last Admin Dose Admin Potassium Chloride 40 meq ONCE ONCE PO 01/15/23 15:00 01/15/23 15:01 DC 01/15/23 15:53 40 MEQ Vital Signs/I&O 01/15/23 01/15/23 13:10 16:48 Temp 35.2 36.0 Pulse 82 73 Resp 20 B/P (MAP) 112/95 (101) 100/42 Pulse Ox 97 O2 Delivery Room Air Room Air Progress Progress Note : Time: 16:00 Initial ECG Impression Date: Jan 15, 2023 Initial ECG Impression Time: 13:31 Initial ECG Rate: 76 Comment alot of artifact - patient would not lay still. I believe NSR with frequent PVC; prolonged Qt interval. Diagnostic Imaging Diagonstic Imaging: Xray Plain Films/CT/US/NM/MRI: chest Comments [facility]. [place], [place] NAME: HARI [facility]IN [facility] REC#: [id number] PT STATUS: REG ER : 1940 PHYSICIAN: DUSTIN KIRBY MD ADMIT DATE: 01/15/23/ER Signed Date of Exam:01/15/23 CHEST 1 VIEW, AP/PA ONLY INDICATION: Chest pain, reportedly 2 days post getting shocked. TECHNIQUE: Single view chest 1:53 PM CORRELATION STUDY: 09/24/2022 FINDINGS: Left-sided AICD remains in place. Heart size and mediastinum are within normal limits. Vasculature is mildly prominent but overall less severe from prior. Bibasilar opacities right greater than left. Remaining lung goodson otherwise clear. No appreciable pneumothorax or significant effusion. No acute displaced rib fracture. IMPRESSION: 1. Heart size within normal limits and improved. Vasculature is borderline without overt failure. 2. Bibasilar opacities right greater than left. May reflect minimal edema versus infiltrate. Given history could even potentially reflect aspiration. Follow-up imaging if clinically warranted. Dictated by: Dictated on workstation # [id number] Dict: 01/15/23 1350 Trans: 01/15/23 1508 SRIRAM [id number] Interpreted by: BONNIE GREENBERG DO Electronically signed by: BONNIE GREENBERG DO 01/15/23 1508 Departure Communication (Admissions) Time/Spoke to Consulting Phy: 16:[address] Santos Impression Primary Impression: Hypokalemia Additional Impressions: Diarrhea Qualified Codes: R19.7 - Diarrhea, unspecified Hypoglycemia associated with diabetes Disposition: HOME, SELF-CARE Condition: Stable Departure-Patient Inst. Decision time for Depature: 16:17 Referrals: GRISELDA SANTOS DO (PCP/Family) Primary Care Physician Patient Instructions: Low Blood Sugar, Adult ED, Diarrhea, Adult ED Add. Discharge Instructions: You need to have several small meals throughout the rest of the evening. Drink fluids to stay well hydrated. We are starting you on a potassium supplement daily. This should help with the "shocking" issue. We will test you for a stool infection - "C diff" when you can give a specimen. Return to the Emergency Department for any new, Concerning or emergent complaints. DUSTIN KIRBY MD Jan 15, 2023 13:17
[2023-01-15 13:30] LABS: BASOPHILS % (AUTO) 0 % (0-10); EOSINOPHILS % (AUTO) 0 % (0-10); HEMATOCRIT 39 % (40-54); HEMOGLOBIN 13.5 g/dL (13.3-17.7); LYMPHOCYTES # (AUTO) 0.8 10^3/uL (1.0-4.0); LYMPHOCYTES % (AUTO) 3 % (12-44); MEAN CORPUSCULAR HEMOGLOBIN 29 pg (25-34); MEAN CORPUSCULAR HGB CONC 34 g/dL (32-36); MEAN CORPUSCULAR VOLUME 83 fL (80-99); MEAN PLATELET VOLUME 9.9 fL (9.0-12.2); MONOCYTES # (AUTO) 0.9 10^3/uL (0.0-1.0); MONOCYTES % (AUTO) 3 % (0-12); NEUTROPHILS % (AUTO) 92 % (42-75); PLATELET COUNT 578 10^3/uL (130-400)
[2023-01-15 13:41] LABS: ALBUMIN 3.4 GM/DL (3.2-4.5); CHLORIDE 95 MMOL/L (98-107); SODIUM 137 MMOL/L (135-145)
[2023-01-15 13:42] LABS: INR 1.1 (0.8-1.4)
[2023-01-15 13:43] LABS: CALCIUM 9.8 MG/DL (8.5-10.1)
[2023-01-15 13:44] LABS: TOTAL PROTEIN 6.5 GM/DL (6.4-8.2)
[2023-01-15 13:45] LABS: CARBON DIOXIDE 27 MMOL/L (21-32)
[2023-01-15 13:46] LABS: BILIRUBIN,TOTAL 1.8 MG/DL (0.1-1.0)
[2023-01-15 13:47] LABS: ALKALINE PHOSPHATASE 334 U/L (40-136); CREATININE SERUM 1.23 MG/DL (0.60-1.30); GFR ESTIMATED 59
[2023-01-15 13:48] LABS: BUN/CREATININE RATIO 15
[2023-01-15 13:50] LABS: ALANINE AMINOTRANSFERASE 39 U/L (0-55); ANISOCYTOSIS SLIGHT; BAND NEUTROPHILS 0 %; BASOPHILS % (MANUAL) 0 %; EOSINOPHILS % (MANUAL) 0 %; LYMPHOCYTES % (MANUAL) 3 %; MONOCYTES % (MANUAL) 5 %; NEUTROPHILS % (MANUAL) 92 %; TARGET CELLS SLIGHT
--- NOTE | 2023-01-15 13:54 | Diagnostic Imaging Report ---
INDICATION: Chest pain, reportedly 2 days post getting shocked. TECHNIQUE: Single view chest 1:53 PM CORRELATION STUDY: 09/24/2022 FINDINGS: Left-sided AICD remains in place. Heart size and mediastinum are within normal limits. Vasculature is mildly prominent but overall less severe from prior. Bibasilar opacities right greater than left. Remaining lung goodson otherwise clear. No appreciable pneumothorax or significant effusion. No acute displaced rib fracture. IMPRESSION: 1. Heart size within normal limits and improved. Vasculature is borderline without overt failure. 2. Bibasilar opacities right greater than left. May reflect minimal edema versus infiltrate. Given history could even potentially reflect aspiration. Follow-up imaging if clinically warranted. Dictated by: Dictated on workstation # [id number]
[2023-01-15 14:03] LABS: GLUCOSE 49 MG/DL (70-105)
[2023-01-15] MEDS ORDERED: POTASSIUM CHLORIDE 20 MEQ TABLET PO ONE (15:00)
[2023-01-15 15:04] LABS: COLOR,URINE AMBER
[2023-01-15 15:05] LABS: BACTERIA,URINE MODERATE /HPF; BILIRUBIN,URINE 2+ (NEGATIVE); CLARITY,URINE CLOUDY; GLUCOSE, URINE (UA) TRACE (NEGATIVE); KETONES,URINE NEGATIVE (NEGATIVE); LEUKOCYTE ESTERASE ,URINE NEGATIVE (NEGATIVE); NITRITE,URINE NEGATIVE (NEGATIVE); PH,URINE 5.5 (5-9); PROTEIN,URINE 2+ (NEGATIVE)
[2023-01-15 16:48] VITALS: BP 100/42
[2023-01-15] MEDS ORDERED: ONDANSETRON 4 MG ORAL DISSOLVE TABLET PO ONE (18:30)
== END 2023-01-15 18:40 | disposition home or self-care (01) ==
LOC: EDUNIT# 13:04 → ER 13:06
DX: R19.7 Diarrhea, unspecified (principal); E87.6 Hypokalemia; E11.649 Type 2 diabetes mellitus with hypoglycemia without coma; Z95.810 Presence of automatic (implantable) cardiac defibrillator
CPT/HCPCS: 36415; 71045; 80053; 81000; 82947; 83735; 84484; 85007; 85027; 85610; 85730; 87088; 87324; 87449; 93005; 93041